=== PATIENT | female | born 1985 | race Caucasian/White ===

== ENCOUNTER 2017-09-06 13:42 | Outpatient (POV) | payer MEDICARE, OTHER, SELFPAY | END 2017-09-06 16:00 | disposition home or self-care (01) | PROVIDERS: Visit Provider Podiatrist | DX: L84 Corns and callosities (principal); M21.42 Flat foot [pes planus] (acquired), left foot; M21.41 Flat foot [pes planus] (acquired), right foot | CPT/HCPCS: 11055; 99202 ==

== ENCOUNTER → 2017-09-21 | Outpatient (POV) | payer MEDICARE, OTHER, SELFPAY | PROVIDERS: Visit Provider Podiatrist ==

== ENCOUNTER → 2017-10-26 09:59 | Outpatient (POV) | payer MEDICARE, SELFPAY | PROVIDERS: Visit Provider Podiatrist | DX: Z00.00 Encounter for general adult medical examination without abnormal findings (principal) ==

== ENCOUNTER → 2017-11-09 09:52 | Outpatient (POV) | payer MEDICARE, OTHER, SELFPAY | PROVIDERS: Visit Provider Podiatrist | DX: Z00.00 Encounter for general adult medical examination without abnormal findings (principal) ==

== ENCOUNTER → 2017-11-23 11:41 | Outpatient (POV) | payer MEDICARE, SELFPAY | PROVIDERS: Visit Provider Podiatrist | DX: Z00.00 Encounter for general adult medical examination without abnormal findings (principal) ==

== ENCOUNTER → 2018-10-23 09:34 | Outpatient (CLI) | payer MEDICARE, OTHER, SELFPAY ==
--- NOTE | 2018-10-23 09:43 | XR_ITS ---
XR chest 2V HISTORY: Shortness of breath, dropping O2 saturation when walking ITS.REASON: SOB ORDERING PHYSICIAN: Marc Thakur MD PATIENT AGE: 33 years COMPARISON: 04/25/2016 FINDINGS: There has been a prior median sternotomy with mitral valve replacement. There is cardiomegaly with pulmonary venous congestion consistent with CHF. There are chronic changes in the right lower lobe. There is a biventricular pacemaker present with a right atrial lead as well. On the lateral view there is a rounded opacity in the posterior costophrenic sulcus measuring approximately 5 cm. Probably on the right. No acute bony findings. IMPRESSION: Prior mitral valve replacement with pacemaker is present with mild CHF. 5 cm rounded opacity in the lung base posteriorly. CT may be of further value. Suture line is noted in the right lung base as before
== END ==
PROVIDERS: PCP Family Medicine; Visit Provider Family Medicine
DX: R06.02 Shortness of breath (principal)
CPT/HCPCS: 71046

== ENCOUNTER → 2018-12-17 10:59 | Outpatient (POV) | payer MEDICARE, OTHER, SELFPAY | PROVIDERS: Visit Provider Internal Medicine | DX: Z00.00 Encounter for general adult medical examination without abnormal findings (principal) ==

== ENCOUNTER → 2018-12-27 11:17 | Outpatient (CLI) | payer MEDICARE, OTHER, SELFPAY ==
[2018-12-27 12:18] VITALS: PULSE 71
[2018-12-27 12:40] VITALS: BP 104/79; PULSE 71; RESP 12; O2SAT 97
[2018-12-27 12:50] VITALS: BP 119/79; PULSE 89; RESP 16
--- NOTE | 2018-12-27 13:02 | CT_ITS ---
CT chest wo con HISTORY: Shortness of breath, drop in O2 saturation, abnormal chest x-ray ITS.REASON: ABN CXR,HYPOXEMIA ORDERING PHYSICIAN: Jorge Conway MD PATIENT AGE: 33 years COMPARISON: hypoxemia Technique: Axial images obtained following the administration of 75 mL of Optiray 350 . Sagittal, and coronal reformatted images are also generated and reviewed. All CT scans at the facility use one or more dose reduction, viz: automated exposure control, ma/kV adjustment per patient size (including targeted exams where dose is matched to indication, i.e. head), or iterative reconstruction technique. FINDINGS: Cardiac pacemaker device is present. There is an enlarged left atrial appendage. Mitral valve placement is noted. There is cardiomegaly. There is pulmonary venous congestion and interstitial edema as well as mild diffuse groundglass density consistent with pulmonary edema from CHF. There is a posterior diaphragmatic hernia on the left with herniation of peritoneal fat into the hernia into the left pleural space posteriorly. This area of fat herniation measures 6 x 7.7 x 6 cm and accounts for the radiographic abnormality noted on the chest x-ray no suspicious pulmonary nodules are evident. IMPRESSION: 1. Congestive heart failure with pulmonary edema. 2. Enlarged left atrial appendage. 3. Bochdalek hernia on the left accounting for the radiographic abnormality noted on the chest x-ray
== END ==
PROVIDERS: PCP Family Medicine; Visit Provider Internal Medicine
DX: R09.02 Hypoxemia (principal); R93.89 Abnormal findings on diagnostic imaging of other specified body structures
CPT/HCPCS: 71250; 94060; 94618; 94640

== ENCOUNTER → 2019-01-07 18:38 | Outpatient (CLI) | payer MEDICARE, OTHER, SELFPAY | PROVIDERS: Visit Provider Podiatrist | DX: L30.9 Dermatitis, unspecified (principal) | CPT/HCPCS: 87102; 87206 ==

== ENCOUNTER → 2019-01-09 20:18 | Outpatient (CLI) | payer MEDICARE, OTHER, SELFPAY | PROVIDERS: PCP Family Medicine; Visit Provider Nurse Practitioner Family | DX: G47.30 Sleep apnea, unspecified (principal) | CPT/HCPCS: 95811 ==

== ENCOUNTER → 2019-02-25 13:11 | Outpatient (POV) | payer MEDICARE, OTHER, SELFPAY | PROVIDERS: Visit Provider Internal Medicine | DX: Z00.00 Encounter for general adult medical examination without abnormal findings (principal) ==

== ENCOUNTER → 2020-07-20 11:27 | Outpatient (POV) | payer MEDICARE, OTHER, SELFPAY | PROVIDERS: Visit Provider Dermatology | DX: Z00.00 Encounter for general adult medical examination without abnormal findings (principal) ==

== ENCOUNTER → 2021-04-29 10:24 | Outpatient (CLI) | payer MEDICARE, OTHER, SELFPAY | PROVIDERS: Visit Provider Internal Medicine Cardiovascular Disease | DX: Z01.818 Encounter for other preprocedural examination (principal); Z11.52 Encounter for screening for COVID-19 | CPT/HCPCS: U0003 ==

== ENCOUNTER → 2021-06-09 11:30 | Outpatient (CLI) | payer MEDICARE, OTHER, SELFPAY ==
[2021-06-09 13:59] LABS: Potassium 5.1 mmoL/L (3.5-5.1)
== END ==
PROVIDERS: Visit Provider Family Medicine
DX: E87.6 Hypokalemia (principal)
CPT/HCPCS: 36415; 84132

== ENCOUNTER → 2021-06-24 14:07 | Outpatient (CLI) | payer MEDICARE, OTHER, SELFPAY ==
[2021-06-24 15:45] LABS: Potassium 4.7 mmoL/L (3.5-5.1)
== END ==
PROVIDERS: Visit Provider Family Medicine
DX: E87.5 Hyperkalemia (principal)
CPT/HCPCS: 36415; 84132

== ENCOUNTER → 2021-07-22 13:30 | Outpatient (CLI) | payer MEDICARE, OTHER, SELFPAY ==
[2021-07-22 14:33] LABS: Potassium 4.6 mmoL/L (3.5-5.1)
== END ==
PROVIDERS: Visit Provider Family Medicine
DX: E87.5 Hyperkalemia (principal)
CPT/HCPCS: 36415; 84132

== ENCOUNTER → 2021-08-23 14:46 | Outpatient (CLI) | payer MEDICARE, OTHER, SELFPAY ==
[2021-08-23 15:20] LABS: Potassium 4.7 mmoL/L (3.5-5.1)
== END ==
PROVIDERS: Visit Provider Family Medicine
DX: E87.5 Hyperkalemia (principal)
CPT/HCPCS: 36415; 84132

== ENCOUNTER → 2021-09-20 14:32 | Outpatient (CLI) | payer MEDICARE, OTHER, SELFPAY ==
[2021-09-20 16:07] LABS: Potassium 5.9 mmoL/L (3.5-5.1)
== END ==
PROVIDERS: Visit Provider Family Medicine
DX: E87.5 Hyperkalemia (principal)
CPT/HCPCS: 36415; 84132

== ENCOUNTER → 2021-10-05 15:12 | Outpatient (CLI) | payer MEDICARE, OTHER, SELFPAY | PROVIDERS: Visit Provider Family Medicine | DX: E87.5 Hyperkalemia (principal) | CPT/HCPCS: 36415; 84132 ==

== ENCOUNTER → 2021-11-08 14:40 | Outpatient (CLI) | payer MEDICARE, OTHER, SELFPAY ==
[2021-11-08 16:06] LABS: Potassium 4.2 mmoL/L (3.5-5.1)
== END ==
PROVIDERS: PCP Family Medicine; Visit Provider Family Medicine
DX: E87.5 Hyperkalemia (principal)
CPT/HCPCS: 36415; 84132

== ENCOUNTER → 2021-12-06 15:15 | Outpatient (CLI) | payer MEDICARE, OTHER, SELFPAY ==
[2021-12-06 16:12] LABS: Potassium 4.7 mmoL/L (3.5-5.1)
== END ==
PROVIDERS: Visit Provider Family Medicine
DX: E87.5 Hyperkalemia (principal)
CPT/HCPCS: 36415; 84132

== ENCOUNTER 2021-12-16 10:47 | Emergency (ER) | payer MEDICARE, OTHER, SELFPAY ==
[2021-12-16 12:40] VITALS: BP 145/72; PULSE 70; RESP 20; TEMP 37.1; O2SAT 95; BMI 46.1
--- NOTE | 2021-12-16 13:42 | HMH.EDUTC ---
[facility] [place] Clinical Impression: Left foot pain Disposition: Home, Self-Care Condition on Discharge: Good Instructions: DI for Foot Pain Additional Instructions: Keep foot elevated. BAKARI wrap for compression. Epsom salt soaks, warm compresses. Tylenol as needed. Return to clinic if pain worsens, redness, pallor, etc Referrals: Marc Thakur MD [Primary Care Provider] - Time of Disposition: 15:07 Medical Decision Making - Allen Inquiry Pt receiving controlled substance: No Vital Signs: 12/16/21 12:40 Temperature 98.7 F Temperature Source Oral Pulse Rate [Right Brachial] 70 Respiratory Rate 20 Blood Pressure [Right Arm] 145/72 H Blood Pressure Mean [Right Arm] 96 Blood Pressure Source [Right Arm] Automatic Cuff Blood Pressure Position [Right Arm] Sitting 02 Sat by Pulse Oximetry 95 Oxygen Delivery Method Room Air - US Data US Images: Lower Extremity ED US Reviewed: Yes: I have reviewed the patient's US results Preliminary Findings: Normal/NAD Findings Narrative: No evidence of DVT [facility] [place] HPI - General Stated complaint: lt foot swollen, painful Time Seen by Provider: 12/16/21 13:43 Mode of Arrival: Ambulatory Source of Information: Patient, Parent(s) Limitations: No Limitations Description of Symptoms (Recalled from Triage Doc. by RN): PATIENT C/O SWELLING AND PAIN TO TOP OF LEFT FOOT SINCE THIS MORNING. MOTHER IS CONCERNED BECAUSE SHE HAD A BLOOD CLOT BEHIND HER PACEMAKER LAST MAY AFTER HER PACEMAKER WAS CHANGED HEENT Symptoms (Recalled from RN notes): No Resp Symptoms (Recalled from RN notes): No Skin Symptoms (Recalled from RN notes): No MS Symptoms (Recalled from RN notes): Yes Functional Status (Recalled from RN notes): WNL - History of Present Illness Provider Complaint: Pain and swelling in left foot since this am. Mother states that she went to bed last night with no issues. Woke up this am limping. Complains of pain across the top of her left foot. Did not trip, kick anything, drop anything on her foot. No bruising. Wearing the same shoes she always wears. She is concerned because she does have a history of a blood clot after she had pacemaker placed. Has mechanical heart valve and A-fib. Takes Coumadin. Last INR was 2.9 just last week. Onset (ago): hour(s) (6) Location: left, lower extremity Radiation: non-radiation Severity scale (1-10): 5 Quality: aching Consistency: constant Exacerbating factors: other (weight bearing, direct pressure) Associated symptoms: denies other symptoms Treatments prior to arrival: none - Related Data Home Medications Medication Instructions Recorded Confirmed albuterol sulfate 90 mcg/actuation INHALATION 17 Days 11/01/17 12/30/20 aerosol inhaler cholecalciferol (vitamin D3) 50 2,000 unit PO ONCE 11/01/17 12/30/20 mcg (2,000 unit) capsule desogestrel 0.15 mg-ethinyl 1 tab PO 84 Days tab 11/01/17 12/30/20 estradiol 0.03 mg tablet furosemide 40 mg tablet 40 mg PO 90 Days tab 11/01/17 12/30/20 levothyroxine 125 mcg tablet 125 mcg PO 90 Days tab 11/01/17 12/30/20 sodium chloride 0.65 % nasal spray 1 spray INTRANASAL BID PRN 01/07/19 12/30/20 aerosol warfarin 1 mg tablet 1 mg PO DAILY 90 Days #90 tab 01/07/19 12/30/20 warfarin 6 mg tablet 6 mg PO DAILY 01/07/19 12/30/20 montelukast 10 mg tablet 10 mg PO DAILY tab 03/28/19 12/30/20 potassium chloride 10 mEq PO tab 03/28/19 12/30/20 tablet,extended release aspirin 81 mg tablet,delayed 81 mg PO DAILY 11/23/20 12/30/20 release azelastine 137 mcg (0.1 %) nasal INTRANASAL 12/30/20 12/30/20 spray aerosol Allergies Allergy/AdvReac Type Severity Reaction Status Date / Time Amoxicillin Allergy Mild Uncoded 11/23/20 10:31 - Worker's Comp Is this a Worker's Comp case?: No [facility] History - Hepatitis A Screen Drug use history?: No High risk sexual behaviors?: No History of sexually transmitted infection?: No Currently employed?: No Childcare worker?: No Do y
--- NOTE | 2021-12-16 13:57 | CA_ITS ---
FINAL REPORT TECHNIQUE: Color Doppler, duplex Doppler and compression sonography of the left lower extremity deep venous systems was performed. CLINICAL HISTORY: pain and swelling, a-fib, on coumadin. Patient's mother states she woke up with pain on the top of her foot this morning. She denies any trauma. FINDINGS: There is no evidence of deep venous thrombosis from the level of the groin to the calf. The veins are patent and compressible. IMPRESSION: No evidence of deep venous thrombosis left lower extremity. Reviewed, Interpreted and Dictated by Israel Chino III, MD Transcribed by Opal Rico Authenticated by Israel Chino III, MD on 12/16/2021 04:20:04 PM [facility]
[2021-12-16 15:02] VITALS: BP 145/72; PULSE 70; RESP 20; TEMP 37.1; O2SAT 95
== END 2021-12-16 15:14 | disposition home or self-care (01) ==
PROVIDERS: Emergency Provider Physician Assistant; PCP Family Medicine
DX: M79.672 Pain in left foot (principal); N28.9 Disorder of kidney and ureter, unspecified; I25.10 Atherosclerotic heart disease of native coronary artery without angina pectoris; I51.9 Heart disease, unspecified; G47.33 Obstructive sleep apnea (adult) (pediatric); Q90.9 Down syndrome, unspecified; E03.9 Hypothyroidism, unspecified; J32.9 Chronic sinusitis, unspecified; Z79.01 Long term (current) use of anticoagulants; Z79.51 Long term (current) use of inhaled steroids; Z79.82 Long term (current) use of aspirin; Z79.899 Other long term (current) drug therapy; Z79.890 Hormone replacement therapy; Z88.1 Allergy status to other antibiotic agents; Z88.3 Allergy status to other anti-infective agents; Z95.2 Presence of prosthetic heart valve; Z95.0 Presence of cardiac pacemaker; Z82.49 Family history of ischemic heart disease and other diseases of the circulatory system; Z83.3 Family history of diabetes mellitus; Z83.438 Family history of other disorder of lipoprotein metabolism and other lipidemia; Z80.9 Family history of malignant neoplasm, unspecified
CPT/HCPCS: 93971; 99213; G0463

== ENCOUNTER → 2022-01-06 14:46 | Outpatient (CLI) | payer MEDICARE, OTHER, SELFPAY ==
[2022-01-06 16:35] LABS: Potassium 3.9 mmoL/L (3.5-5.1)
== END ==
PROVIDERS: PCP Family Medicine; Visit Provider Family Medicine
DX: E87.5 Hyperkalemia (principal)
CPT/HCPCS: 36415; 84132

== ENCOUNTER → 2022-02-06 11:01 | Outpatient (CLI) | payer MEDICARE, OTHER, SELFPAY ==
[2022-02-06 11:46] LABS: Potassium 4.2 mmoL/L (3.5-5.1)
== END ==
PROVIDERS: Visit Provider Family Medicine
DX: E87.5 Hyperkalemia (principal)
CPT/HCPCS: 36415; 84132

== ENCOUNTER → 2022-03-08 13:38 | Outpatient (CLI) | payer MEDICARE, OTHER, SELFPAY ==
[2022-03-08 14:23] LABS: Potassium 3.9 mmoL/L (3.5-5.1)
== END ==
PROVIDERS: PCP Family Medicine; Visit Provider Family Medicine
DX: E87.5 Hyperkalemia (principal)
CPT/HCPCS: 36415; 84132

== ENCOUNTER → 2022-04-07 11:00 | Outpatient (CLI) | payer MEDICARE, OTHER, SELFPAY ==
[2022-04-07 11:48] LABS: Potassium 4.4 mmoL/L (3.5-5.1)
== END ==
PROVIDERS: PCP Family Medicine; Visit Provider Family Medicine
DX: E87.5 Hyperkalemia (principal)
CPT/HCPCS: 36415; 84132

== ENCOUNTER → 2022-05-11 11:23 | Outpatient (CLI) | payer MEDICARE, OTHER, SELFPAY ==
[2022-05-11 12:00] LABS: Potassium 4.4 mmoL/L (3.5-5.1)
== END ==
PROVIDERS: PCP Family Medicine; Visit Provider Family Medicine
DX: E87.5 Hyperkalemia (principal)
CPT/HCPCS: 36415; 84132

== ENCOUNTER → 2022-06-08 11:15 | Outpatient (CLI) | payer MEDICARE, OTHER, SELFPAY ==
[2022-06-08 12:29] LABS: Potassium 4.3 mmoL/L (3.5-5.1)
== END ==
PROVIDERS: PCP Family Medicine; Visit Provider Family Medicine
DX: E87.5 Hyperkalemia (principal)
CPT/HCPCS: 36415; 84132

== ENCOUNTER → 2022-07-07 13:58 | Outpatient (CLI) | payer MEDICARE, OTHER, SELFPAY ==
[2022-07-07 14:56] LABS: Potassium 5.9 mmoL/L (3.5-5.1)
== END ==
PROVIDERS: PCP Family Medicine; Visit Provider Family Medicine
DX: E87.6 Hypokalemia (principal)
CPT/HCPCS: 36415; 84132

== ENCOUNTER → 2022-08-25 14:56 | Outpatient (CLI) | payer MEDICARE, OTHER, SELFPAY | PROVIDERS: PCP Family Medicine; Visit Provider Family Medicine | DX: E87.6 Hypokalemia (principal) | CPT/HCPCS: 36415; 84132 ==

== ENCOUNTER → 2022-09-19 12:11 | Outpatient (CLI) | payer MEDICARE, OTHER, SELFPAY ==
[2022-09-19 12:58] LABS: Potassium 5.1 mmoL/L (3.5-5.1)
== END ==
PROVIDERS: PCP Family Medicine; Visit Provider Family Medicine
DX: E87.6 Hypokalemia (principal)
CPT/HCPCS: 36415; 84132

== ENCOUNTER → 2022-11-21 13:28 | Outpatient (CLI) | payer MEDICARE, OTHER, SELFPAY ==
[2022-11-21 14:30] LABS: Potassium 4.4 mmoL/L (3.5-5.1)
== END ==
PROVIDERS: PCP Family Medicine; Visit Provider Family Medicine
DX: E87.6 Hypokalemia (principal)
CPT/HCPCS: 36415; 84132

== ENCOUNTER → 2022-12-19 10:03 | Outpatient (CLI) | payer MEDICARE, OTHER, SELFPAY ==
[2022-12-19 11:37] LABS: Potassium 4.6 mmoL/L (3.5-5.1)
== END ==
PROVIDERS: PCP Family Medicine; Visit Provider Family Medicine
DX: E87.6 Hypokalemia (principal)
CPT/HCPCS: 36415; 84132

== ENCOUNTER → 2023-01-31 09:46 | Outpatient (CLI) | payer MEDICARE, OTHER, SELFPAY ==
[2023-01-31 10:36] LABS: Potassium 4.2 mmoL/L (3.5-5.1)
== END ==
PROVIDERS: PCP Family Medicine; Visit Provider Family Medicine
DX: E87.6 Hypokalemia (principal)
CPT/HCPCS: 36415; 84132

== ENCOUNTER → 2023-03-09 10:51 | Outpatient (CLI) | payer MEDICARE, OTHER, SELFPAY ==
[2023-03-09 12:15] LABS: Potassium 4.6 mmoL/L (3.5-5.1)
== END ==
PROVIDERS: PCP Family Medicine; Visit Provider Family Medicine
DX: E87.6 Hypokalemia (principal)
CPT/HCPCS: 36415; 84132

== ENCOUNTER → 2023-04-05 08:20 | Outpatient (CLI) | payer MEDICARE, OTHER, SELFPAY ==
[2023-04-05 09:27] LABS: Potassium 4.8 mmoL/L (3.5-5.1)
== END ==
PROVIDERS: PCP Family Medicine; Visit Provider Family Medicine
DX: E87.6 Hypokalemia (principal)
CPT/HCPCS: 36415; 84132

== ENCOUNTER → 2023-05-08 10:00 | Outpatient (CLI) | payer MEDICARE, OTHER, SELFPAY ==
[2023-05-08 10:37] LABS: Potassium 4.4 mmoL/L (3.5-5.1)
== END ==
PROVIDERS: PCP Family Medicine; Visit Provider Family Medicine
DX: E87.6 Hypokalemia (principal)
CPT/HCPCS: 36415; 84132

== ENCOUNTER → 2023-06-11 10:42 | Outpatient (CLI) | payer MEDICARE, OTHER, SELFPAY ==
[2023-06-11 11:28] LABS: Potassium 4.4 mmoL/L (3.5-5.1)
== END ==
PROVIDERS: PCP Family Medicine; Visit Provider Family Medicine
DX: E87.6 Hypokalemia (principal)
CPT/HCPCS: 36415; 84132

== ENCOUNTER 2023-06-24 08:56 | Emergency (ER) | payer MEDICARE, OTHER, SELFPAY ==
[2023-06-24 09:10] VITALS: BP 118/40; PULSE 70; RESP 18; TEMP 36.7; O2SAT 95; BMI 49.0
--- NOTE | 2023-06-24 09:50 | EXP.UTC ---
Discharge Plan Disposition Patient Disposition: Home, Self-Care Condition: Good Prescriptions Prescriptions: No Action sodium chloride [[place] Saline] 0.65 % aerosol,spray 1 spray INTRANASAL BID PRN warfarin 6 mg tablet 6 mg PO DAILY Rx Instructions: 5 days montelukast 10 mg tablet 10 mg PO DAILY potassium chloride 10 mEq tablet extended release 10 meq PO DAILY azelastine 137 mcg (0.1 %) aerosol,spray INTRANASAL desogestrel-ethinyl estradiol 0.15-0.03 mg tablet 1 tab PO DAILY 84 Days Patient Comments: albuterol sulfate 90 mcg/actuation HFA aerosol inhaler 1 puff INHALATION NEEDED PRN (Reason: .) 17 Days Patient Comments: furosemide 40 mg tablet 40 mg PO DAILY 90 Days Patient Comments: levothyroxine 125 mcg tablet 125 mcg PO DAILY 90 Days Patient Comments: cholecalciferol (vitamin D3) 2,000 unit capsule 2,000 unit PO ONCE warfarin 1 mg tablet 0.5 mg PO DAILY 90 Days Qty: 90 Patient Comments: 8mg Sunday, Sunday 7mg Sunday, Sunday, , Sunday, Sunday Rx Instructions: 6.5 mg 2 days weekly aspirin [Adult Low Dose Aspirin] 81 mg tablet,delayed release (DR/EC) 81 mg PO DAILY Referrals Follow up/Referrals: Marc Thakur MD [Primary Care Provider] - See instructions Clinical Impressions Clinical Impression: Pain of left great toe Instructions Patient Instructions: How To Perform RICE (Rest, Ice, Compress, Elevate) Discharge ED Provider: Dona Trujillo [facility] General Stated complaint: sore on bottom of left big toe Mode of Arrival: Ambulatory Source of Information: Patient Limitations: No Limitations Time Seen by Provider: 06/24/23 09:36 Description of Symptoms (Recalled from Triage Doc. by RN): raised sore on the bottom of her right big toe HEENT Symptoms (Recalled from RN notes): No Resp Symptoms (Recalled from RN notes): No Skin Symptoms (Recalled from RN notes): Yes MS Symptoms (Recalled from RN notes): No Functional Status (Recalled from RN notes): n/a History of Present Illness Provider Complaint: Mom relates that pt tripped yesterday and fell. She states that she has been complaining of left great toe pain since that time. Related Data Home Medications Medication Instructions Recorded Confirmed albuterol sulfate 90 mcg/actuation 1 puff inhalation NEEDED PRN . 11/01/17 06/24/23 aerosol inhaler 17 days cholecalciferol (vitamin D3) 50 2,000 unit PO ONCE 11/01/17 12/30/20 mcg (2,000 unit) capsule desogestrel 0.15 mg-ethinyl 1 tab PO DAILY . 84 days 11/01/17 06/24/23 estradiol 0.03 mg tablet furosemide 40 mg tablet 40 mg PO DAILY . 90 days 11/01/17 06/24/23 levothyroxine 125 mcg tablet 125 mcg PO DAILY thyroid 90 days 11/01/17 06/24/23 sodium chloride 0.65 % nasal spray 1 spray intranasal BID PRN 01/07/19 12/30/20 aerosol ([place] Saline) warfarin 1 mg tablet 0.5 mg PO DAILY . 90 days #90 tabs 01/07/19 06/24/23 warfarin 6 mg tablet 6 mg PO DAILY . 01/07/19 06/24/23 montelukast 10 mg tablet 10 mg PO DAILY . 03/28/19 06/24/23 potassium chloride 10 mEq 10 meq PO DAILY . 03/28/19 06/24/23 tablet,extended release aspirin 81 mg tablet,delayed 81 mg PO DAILY . 11/23/20 06/24/23 release (Adult Low Dose Aspirin) azelastine 137 mcg (0.1 %) nasal intranasal 12/30/20 12/30/20 spray aerosol Allergies Allergy/AdvReac Type Severity Reaction Status Date / Time doxycycline Allergy Mild Verified 06/24/23 09:26 Amoxicillin Allergy Mild Uncoded 06/24/23 09:26 Worker's Comp Is this a Worker's Comp case?: No [facility] Disclaimer: The information contained in this section may have been updated after the patient was seen, as this information can be updated by other users. Social History Smoking Status: Never smoker alcohol intake: never counseling provided: none substance use type: denies
[2023-06-24 09:54] VITALS: BP 118/40; PULSE 70; RESP 18; TEMP 36.7; O2SAT 95
== END 2023-06-24 09:54 | disposition home or self-care (01) ==
PROVIDERS: Emergency Provider Nurse Practitioner Family; PCP Family Medicine
DX: M79.675 Pain in left toe(s) (principal); W01.10XA Fall on same level from slipping, tripping and stumbling with subsequent striking against unspecified object, initial encounter
CPT/HCPCS: 99212; 99213; G0463

== ENCOUNTER → 2023-07-23 09:37 | Outpatient (CLI) | payer MEDICARE, OTHER, SELFPAY | PROVIDERS: PCP Family Medicine; Visit Provider Family Medicine | DX: E87.6 Hypokalemia (principal) | CPT/HCPCS: 36415; 84132 ==

== ENCOUNTER → 2023-08-27 14:49 | Outpatient (CLI) | payer MEDICARE, OTHER, SELFPAY ==
[2023-08-27 16:27] LABS: Potassium 4.4 mmoL/L (3.5-5.1)
== END ==
PROVIDERS: PCP Family Medicine; Visit Provider Family Medicine
DX: E87.6 Hypokalemia (principal)
CPT/HCPCS: 36415; 84132

== ENCOUNTER → 2023-09-20 15:00 | Outpatient (CLI) | payer MEDICARE, OTHER, SELFPAY ==
[2023-09-20 15:33] LABS: Potassium 4.6 mmoL/L (3.5-5.1)
== END ==
PROVIDERS: PCP Family Medicine; Visit Provider Family Medicine
DX: E87.6 Hypokalemia (principal)
CPT/HCPCS: 36415; 84132

== ENCOUNTER 2023-10-26 13:29 | Outpatient (CLI) | payer MEDICARE, OTHER, SELFPAY ==
[2023-10-26 14:22] LABS: Potassium 4.1 mmoL/L (3.5-5.1)
== END 2023-10-26 23:59 ==
LOC: LAB 13:31
PROVIDERS: PCP Family Medicine; Visit Provider Family Medicine
DX: E87.6 Hypokalemia (principal)
CPT/HCPCS: 36415; 84132

== ENCOUNTER 2023-12-03 10:05 | Outpatient (CLI) | payer MEDICARE, OTHER, SELFPAY ==
[2023-12-03 10:46] LABS: Potassium 4.6 mmoL/L (3.5-5.1)
== END 2023-12-03 23:59 ==
PROVIDERS: PCP Family Medicine; Visit Provider Family Medicine
DX: E87.6 Hypokalemia (principal)
CPT/HCPCS: 36415; 84132

== ENCOUNTER 2023-12-12 09:39 | Outpatient (CLI) | payer MEDICARE, OTHER, SELFPAY ==
[2023-12-12 10:16] LABS: Basophils # 0.1 K/mm3 (0-0.2); Basophils % 2.2 % (0.1-2.0); Eosinophils # 0.1 K/mm3 (0.0-0.4); Eosinophils % 2.1 % (0.1-12.0); Hematocrit 46.8 % (37.0-47.0); Hemoglobin 15.6 g/dL (12.2-16.2); Lymphocytes # 1.7 K/mm3 (0.7-4.5); Lymphocytes % 28.7 % (10-50); Mean Corpuscular HGB Conc 33.4 g/dL (31.8-35.4); Mean Corpuscular Hemoglobin 34.6 pg (27.0-31.2); Mean Corpuscular Volume 103.6 fl (81-99); Mean Platelet Volume 7.7 fl (7.4-10.4); Monocytes # 0.3 K/mm3 (0.1-1.0); Monocytes % 5.3 % (1.7-9.3); Neutrophils # 3.6 K/mm3 (1.8-7.8); Neutrophils % 61.7 % (37.0-80.0); Platelet Count 180 K/mm3 (142-424); Red Blood Count 4.52 M/mm3 (4.20-5.40); Red Cell Distribution Width 14.6 % (11.5-17.5); White Blood Count 5.8 K/mm3 (4.8-10.8)
[2023-12-12 11:22] LABS: Chloride 107 mmol/L (98-107); Potassium 4.2 mmoL/L (3.5-5.1); Sodium 137 mmol/L (136-145)
[2023-12-12 11:24] LABS: Blood Urea Nitrogen 13 mg/dl (7-17); Estimated Glomerular Filt Rate 79 ml/min (>60); GFR (African American) 96 ML/MIN (>60)
[2023-12-12 11:25] LABS: Alanine Aminotransferase 47 U/L (12-78); Albumin Level 3.6 g/dl (3.5-5.0); Albumin/Globulin Ratio 1.1 (1.1-1.8); Alkaline Phosphatase 80 U/L (38-126); Anion Gap 7.2 mEq/L (5-15); Aspartate Amino Transferase 57 U/L (14-36); Bilirubin,Total 0.8 mg/dl (0.2-1.3); Calcium 8.6 mg/dl (8.4-10.2); Carbon Dioxide 27 mmol/L (22.0-30.0); Cholesterol 192 mg/dl (140-200); Globulin 3.3 g/dL (1.3-3.2); Glucose 89 mg/dl (74-100); HDL Cholesterol 32 mg/dl (40-60); Iron 96 ug/dL (37-170); Total Protein,Serum 6.9 g/dl (6.3-8.2); Triglycerides 163 mg/dl (30-150); VLDL Cholesterol 33 mg/dL (0-40)
[2023-12-12 11:36] LABS: Total Iron Binding Capacity 387 ug/dL (265-497)
[2023-12-12 11:42] LABS: 25-OH Vitamin D, Total 68.3 ng/mL (30-100); Free T4 (Free Thyroxine) 1.38 ng/dl (0.78-2.19)
== END 2023-12-12 23:59 ==
LOC: LAB 09:40
PROVIDERS: PCP Family Medicine; Visit Provider Family Medicine
DX: E78.2 Mixed hyperlipidemia (principal); I10 Essential (primary) hypertension; D50.9 Iron deficiency anemia, unspecified; E55.9 Vitamin D deficiency, unspecified; E03.9 Hypothyroidism, unspecified
CPT/HCPCS: 36415; 80053; 80061; 82306; 83540; 83550; 84439; 84443; 85025

== ENCOUNTER 2024-01-08 13:12 | Outpatient (CLI) | payer MEDICARE, OTHER, SELFPAY ==
[2024-01-08 14:32] LABS: Potassium 4.4 mmoL/L (3.5-5.1)
== END 2024-01-08 23:59 ==
LOC: LAB 13:12
PROVIDERS: PCP Family Medicine; Visit Provider Family Medicine
DX: E87.6 Hypokalemia (principal)
CPT/HCPCS: 36415; 84132

== ENCOUNTER 2024-02-07 13:53 | Outpatient (CLI) | payer MEDICARE, OTHER, SELFPAY ==
[2024-02-07 15:17] LABS: Potassium 4.5 mmoL/L (3.5-5.1)
== END 2024-02-07 23:59 | disposition home or self-care (01) ==
LOC: LAB 13:55
PROVIDERS: PCP Family Medicine; Visit Provider Family Medicine
DX: E87.6 Hypokalemia (principal)
CPT/HCPCS: 36415; 84132

== ENCOUNTER 2024-03-10 14:46 | Outpatient (CLI) | payer MEDICARE, OTHER, SELFPAY | END 2024-03-10 23:59 | disposition home or self-care (01) | LOC: LAB 14:48 | PROVIDERS: PCP Family Medicine; Visit Provider Family Medicine | DX: E87.6 Hypokalemia (principal) | CPT/HCPCS: 36415; 84132 ==

== ENCOUNTER 2024-04-10 10:30 | Outpatient (CLI) | payer MEDICARE, OTHER, SELFPAY ==
[2024-04-10 11:08] LABS: Potassium 5.5 mmoL/L (3.5-5.1)
== END 2024-04-10 23:59 | disposition home or self-care (01) ==
LOC: LAB 10:31
PROVIDERS: PCP Family Medicine; Visit Provider Family Medicine
DX: E87.6 Hypokalemia (principal)
CPT/HCPCS: 36415; 84132

== ENCOUNTER 2024-05-07 13:44 | Outpatient (CLI) | payer MEDICARE, OTHER, SELFPAY ==
[2024-05-07 16:03] LABS: Potassium 4.4 mmoL/L (3.5-5.1)
== END 2024-05-07 23:59 | disposition home or self-care (01) ==
LOC: LAB 13:46
PROVIDERS: PCP Family Medicine; Visit Provider Family Medicine
DX: E87.6 Hypokalemia (principal)
CPT/HCPCS: 36415; 84132

== ENCOUNTER 2024-06-12 09:51 | Outpatient (CLI) | payer MEDICARE, OTHER, SELFPAY | END 2024-06-12 23:59 | disposition home or self-care (01) | LOC: LAB 09:53 | PROVIDERS: PCP Family Medicine; Visit Provider Family Medicine | DX: E87.6 Hypokalemia (principal) | CPT/HCPCS: 36415; 84132 ==

== ENCOUNTER 2024-07-16 13:16 | Outpatient (CLI) | payer MEDICARE, OTHER, SELFPAY ==
[2024-07-16 14:34] LABS: Potassium 4.8 mmoL/L (3.5-5.1)
== END 2024-07-16 23:59 | disposition home or self-care (01) ==
LOC: LAB 13:20
PROVIDERS: PCP Family Medicine; Visit Provider Nurse Practitioner
DX: E87.6 Hypokalemia (principal)
CPT/HCPCS: 84132

== ENCOUNTER 2024-08-18 13:00 | Outpatient (CLI) | payer MEDICARE, OTHER, SELFPAY ==
[2024-08-18 13:40] LABS: Potassium 4.1 mmoL/L (3.5-5.1)
== END 2024-08-18 23:59 | disposition home or self-care (01) ==
LOC: LAB 13:02
PROVIDERS: PCP Family Medicine; Visit Provider Family Medicine
DX: E87.6 Hypokalemia (principal)
CPT/HCPCS: 36415; 84132

== ENCOUNTER 2024-08-22 23:19 | Observation (INO) | payer MEDICARE, OTHER, SELFPAY ==
[2024-08-22 23:49] VITALS: BP 107/54; PULSE 70; RESP 18; TEMP 36.8; O2SAT 96; BMI 45.0
--- NOTE | 2024-08-22 23:49 | XR_ITS ---
PROCEDURE INFORMATION: Exam: XR Chest Exam date and time: 08/22/2024 11:48 PM Age: 39 years old Clinical indication: Cough and fever and shortness of breath; Additional info: SOA cough fever TECHNIQUE: Imaging protocol: Radiologic exam of the chest. Views: 2 views. COMPARISON: CHESTWO CT chest wo con 12/27/2018 1:08 PM FINDINGS: Tubes, catheters and devices: Two lead pacemaker in place. Lungs: Left basilar opacity best seen on lateral projection. Pleural spaces: Unremarkable. No pleural effusion. No pneumothorax. Heart/Mediastinum: Unremarkable. No cardiomegaly. Bones/joints: Unremarkable. IMPRESSION: Possible left basilar infiltration.
--- NOTE | 2024-08-22 23:51 | ED_ITS ---
Discharge Plan Disposition Patient Disposition: Admitted Prescriptions Prescriptions: No Action sodium chloride [[place] Saline] 0.65 % aerosol,spray 1 spray INTRANASAL BID PRN warfarin 6 mg tablet 6 mg PO DAILY Rx Instructions: 5 days montelukast 10 mg tablet 10 mg PO DAILY potassium chloride 10 mEq tablet extended release 10 meq PO DAILY azelastine 137 mcg (0.1 %) aerosol,spray INTRANASAL desogestrel-ethinyl estradiol 0.15-0.03 mg tablet 1 tab PO DAILY 84 Days Patient Comments: albuterol sulfate 90 mcg/actuation HFA aerosol inhaler 1 puff INHALATION NEEDED PRN (Reason: .) 17 Days Patient Comments: furosemide 40 mg tablet 40 mg PO DAILY 90 Days Patient Comments: levothyroxine 125 mcg tablet 125 mcg PO DAILY 90 Days Patient Comments: cholecalciferol (vitamin D3) 2,000 unit capsule 2,000 unit PO ONCE warfarin 1 mg tablet 0.5 mg PO DAILY 90 Days Qty: 90 Patient Comments: 8mg Sunday, Sunday 7mg Sunday, Sunday, , Sunday, Sunday Rx Instructions: 6.5 mg 2 days weekly aspirin [Adult Low Dose Aspirin] 81 mg tablet,delayed release (DR/EC) 81 mg PO DAILY Referrals Follow up/Referrals: Marc Thakur MD [Primary Care Provider] - See instructions Clinical Impressions Clinical Impression: Pneumonia, Elevated brain natriuretic peptide (BNP) level Print Language Print Language: Azeri Discharge ED Provider: Karla Umana General Chief Complaint: Upper Respiratory Infection Stated Complaint: fever, cough, congestion Time Seen by Provider: 08/22/24 23:30 History of Present Illness HPI narrative: 39-year-old female with history of Down syndrome, mechanical heart valve on warfarin, congestive heart failure, history of 2 open heart surgeries presents to the ER with cough, congestion, fever. Mom reports that patient has had cough and congestion for the last 4 to 5 days. She did receive her RSV vaccine 5 days ago. Mom became concerned tonight when she checked the patient's temperature and it was 101. She administered antipyretic and patient arrived in the ER afebrile. Patient did arrive hypoxic, mom reports that patient does not wear oxygen at home during the day but when they are out and about, she wears 2 L with a concentrator. She states that when she is ambulatory she often drops into the mid 80s but is typically in the 90s at rest. Mom also reports patient wears CPAP with 2 L O2 at night patient denies abdominal pain, nausea, vomiting, diarrhea, no headache, dizziness, or pain elsewhere. No dysuria or hematuria. Patient reportedly takes an albuterol inhaler nightly before bed. Related Data Home Medications ?Medication ?Instructions ?Recorded ?Confirmed albuterol sulfate 90 mcg/actuation 1 puff inhalation NEEDED PRN . 11/01/17 06/24/23 aerosol inhaler 17 days cholecalciferol (vitamin D3) 50 2,000 unit PO ONCE 11/01/17 12/30/20 mcg (2,000 unit) capsule desogestrel 0.15 mg-ethinyl 1 tab PO DAILY . 84 days 11/01/17 06/24/23 estradiol 0.03 mg tablet furosemide 40 mg tablet 40 mg PO DAILY . 90 days 11/01/17 06/24/23 levothyroxine 125 mcg tablet 125 mcg PO DAILY thyroid 90 days 11/01/17 06/24/23 sodium chloride 0.65 % nasal spray 1 spray intranasal BID PRN 01/07/19 12/30/20 aerosol ([place] Saline) warfarin 1 mg tablet 0.5 mg PO DAILY . 90 days #90 tabs 01/07/19 06/24/23 warfarin 6 mg tablet 6 mg PO DAILY . 01/07/19 06/24/23 montelukast 10 mg tablet 10 mg PO DAILY . 03/28/19 06/24/23 potassium chloride 10 mEq 10 meq PO DAILY . 03/28/19 06/24/23 tablet,extended release aspirin 81 mg tablet,delayed 81 mg PO DAILY . 11/23/20 06/24/23 release (Adult Low Dose Aspirin) azelastine 137 mcg (0.1 %) nasal intranasal 12/30/20 12/30/20 spray Allergies Allergy/AdvReac Type Severity Reaction Status Date / Time doxycycline Allergy Mild Unknown Verified 09/10/23 13:06 allergy reaction amoxicillin Allergy Unknown Verified 09/10/23 13:06 allergy reaction [facility] Disclaimer: The information contained in this section may have been updated after the patient was seen, as this information can be updated by other users. Social History Smoking Status: Never smoker alcohol intake: never counseling provided: none substance use type: denies use current occupational status: disabled household members: family housing: house Other Medical History Have you received the Flu Vaccine for this season: Yes Have you received the Pneumonia Vaccine: Yes ROS Obtained: Yes Systems reviewed as appropriate & no additional complaints except as documented ROS per HPI Physical Exam General General appearance: alert, in no apparent distress and obese Comment: Syndromic appearance Head Head exam: atraumatic and normocephalic Eye Eye exam: Present PERRL and EOMI ENT ENT exam: Present mucous membranes moist Neck Neck exam: Present normal inspection and full ROM; Absent lymphadenopathy Chest Chest inspection: Present symmetric chest wall rise; Absent tenderness Respiratory Respiratory exam: Present wheezes (Diffuse expiratory, slightly diminished air movement) and other (Saturating 95% on 2 L nasal cannula); Absent respiratory distress or stridor Cardiovascular Cardiovascular exam: Present regular rate and normal rhythm Abdominal Exam Abdominal exam: Present soft; Absent distention, tenderness, guarding or rebound Extremities Exam Extremities exam: Present full ROM; Absent edema Neurological Exam Neurological exam: Present alert and oriented X3; Absent motor sensory deficit Psychiatric Psychiatric exam: Present normal affect and normal mood Skin Skin exam: Present warm and dry HEART Score HEART Score HEART Score assessment performed?: Yes History (anamnesis): Slightly suspicious ECG: Non-specific disturbance Age: <45 years Risk factors: 3 or more risk factors Troponin: </= normal limit HEART Score: 3 Critical Care Critical Care Time Critical Care Time: No Medical Decision Making Medical Records Medical records reviewed: Yes I reviewed the patient's medical records. MR Comment: Most recent evaluation in our system was for great toe pain in June 2023. I reviewed pulmonary function test from December 2018 which demonstrated patient was not able to fully cooperate with the PFT, she was prescribed a bronchodilator at that time. However they did find restriction without obstruction [place] Inquiry Pt receiving controlled substance: No Vital Signs Vital Signs: 08/22/24 23:49 08/23/24 00:09 08/23/24 00:09 Temperature 98.2 F Temperature Source Oral Pulse Rate 81 Pulse Rate [Right Radial] 70 Respiratory Rate 18 Blood Pressure [Right Arm] 107/54 L Blood Pressure Mean [Right Arm] 71 Blood Pressure Source [Right Arm] Automatic Cuff 02 Sat by Pulse Oximetry 96 97 Oxygen Delivery Method Nasal Cannula Nasal Cannula Oxygen Flow Rate (LPM) 2 2 08/23/24 00:09 08/23/24 00:15 Temperature Temperature Source Pulse Rate 77 71 Pulse Rate [Right Radial] Respiratory Rate Blood Pressure [Right Arm] Blood Pressure Mean [Right Arm] Blood Pressure Source [Right Arm] 02 Sat by Pulse Oximetry 100 Oxygen Delivery Method Oxygen Flow Rate (LPM) Lab Data Labs: Lab Results 08/22/24 00:09: Chlamy pneumoniae PCR Not detected, Adenovirus (PCR) Not detected, B. pertussis DNA (PCR) Not detected, Coronavirus OC43 (PCR) Not detected, Coronavirus HKU1 (PCR) Not detected, Coronavirus 229E (PCR) Not detected, SARS-CoV-2 (PCR) Not detected, Coronavirus NL63 (PCR) Not detected, Human Metapneumovir PCR Not detected, Influenza A (H1) PCR Not detected, Influ A (H1N1/09) PCR Not detected, Influenza A (H3) PCR Not detected, Influenza Type A (PCR) Not detected, Influenza Type B (PCR) Not detected, M. pneumoniae (PCR) Not detected, Parainfluenza 1 (PCR) Not detected, Parainfluenza 2 (PCR) Not detected, Parainfluenza 3 (PCR) Not detected, Parainfluenza 4 (PCR) Not detected, RSV (PCR) Detected A, Entero/Rhino (PCR) Not detected 08/22/24 23:49: VBG pH 7.31, VBG pCO2 54.0 H, VBG pO2 57.5 H, VBG HCO3 26.7, VBG Total CO2 28.4 H, VBG O2 Saturation 87.4 H, VBG Base Excess 0.5, VBG Lactic Acid 1.9 08/23/24 01:08: WBC 6.8, RBC 4.91, Hgb 15.8, Hct 47.4 H, MCV 96.5, MCH 32.2 H, MCHC 33.4, RDW 15.5, Plt Count 164, MPV 7.3 L, Neut % (Auto) 49.6, Lymph % (Auto) 41.1, [place] % (Auto) 4.5, Eos % (Auto) 2.6, Baso % (Auto) 2.2 H, Neut # (Auto) 3.4, Lymph # (Auto) 2.8, [place] # (Auto) 0.3, Eos # (Auto) 0.2, Baso # (Auto) 0.2, PT 20.1 H, INR 1.91 H, Sodium 139, Potassium 3.4 L, Chloride 103, C arbon Dioxide 31 H, Anion Gap 8.4, BUN 12, Creatinine 0.90, Estimated Creat Clear 56, Estimated GFR 69, Est GFR ( Amer) 83, Glucose 134 H, Calcium 9.1, Total Bilirubin 0.7, AST 45 H, ALT 40, Alkaline Phosphatase 130 H, Troponin I 0.03, NT-Pro-B Natriuret Pep 338 H, Total Protein 8.1, Albumin 4.1, Globulin 4.0 H, Albumin/Globulin Ratio 1.0 L 08/23/24 01:08 08/23/24 01:08 Response Orders (Tests/Meds): ED MEDICATIONS Generic Name Dose Route Start Last Admin Trade Name Freq PRN Reason Stop Dose Admin Ceftriaxone Sodium 1 gm/ 50 mls @ 100 mls/hr 08/23/24 00:30 08/23/24 01:13 Sodium Chloride IV 09/02/24 00:29 100 mls/hr Q24H ANDREIA Administration Discontinued Medications Generic Name Dose Route Start Last Admin Trade Name Freq PRN Reason Stop Dose Admin Albuterol/Ipratropium 9 ml 08/22/24 23:50 08/23/24 00:09 Ipratropium/Albuterol 3 Ml Neb IH 08/22/24 23:51 9 ml ONCE ONE Administration Methylprednisolone Sodium Succinate 125 mg 08/22/24 23:50 08/23/24 01:03 Methylprednisolone Sod Succ 125mg Vial IV 08/22/24 23:51 125 mg ONCE ONE Administration ORDERS Category Date Time Status CXR 2 view (NOT portable) [XR chest 2V] Stat Exams 08/22/24 23:49 Completed BNP [NT Pro Brain Natriuretic Pep.] Stat Lab 08/22/24 23:49 Completed CBC w/Auto Diff [Complete Blood Count Auto Diff] Stat Lab 08/22/24 23:49 Completed CMP [Comprehensive Metabolic Panel] Stat Lab 08/22/24 23:49 Completed Full Resp Panel w/COVID ([facility]) Routine Lab 08/22/24 00:09 Completed PT INR [Prothrombin Time INR] Stat Lab 08/22/24 23:49 Completed Trop I [Troponin I] Stat Lab 11/22/24 23:49 Completed Troponin I Q3H Lab 08/23/24 03:00 Ordered Troponin I Q3H Lab 08/23/24 06:00 Ordered VBG [Venous Blood Gas] Stat RT 08/22/24 23:49 Completed MDM Narrative Medical Decision Narrative: In summary, this 39-year-old female with comorbidities as described in HPI presents to the emergency department today with cough, congestion, fever. On initial evaluation patient is hemodynamically stable, afebrile, she was hypoxic on arrival so was placed on 2 L nasal cannula and is now saturating well, expiratory wheezes present, I do not appreciate rhonchi or rales, mildly diminished breath sounds throughout, patient denies chest pain, no peripheral edema. Differential diagnosis includes but is not limited to viral syndrome, pneumonia, asthma exacerbation, fluid overload, ACS. In the setting of fever I had considered urinary tract infection but patient has no urinary symptoms. Based on these concerns, I ordered serum labs, cardiac workup, chest x-ray, viral swab, VBG. ECG personally interpreted demonstrates ventricular pacemaker, paced rhythm with rate 69, no prolonged TX, borderline prolonged QTc, no STEMI. Patient received DuoNebs, Solu-Medrol for treatment. Labs personally reviewed demonstrate no leukocytosis or anemia, platelets normal, PT/INR elevated appropriate since patient is on warfarin, VBG notable for hypercarbia with pCO2 54, lactic normal at 1.9, pH normal 7.31, CMP with trace hypokalemia, possibly due to beta agonist use, trace elevation in AST and alkaline phosphatase, nonspecific and nonactionable at this time, initial troponin is 0.03, BNP 338, these findings in the setting of patient's pneumonia with oxygen requirement concerning for increased cardiac strain and possible fluid overload, with her significant cardiac history this does concern me. XR personally interpreted demonstrates likely early left lower lobe infiltrate, see radiology read for final interpretation. On reevaluation patient continues to be stable, I discussed labs and imaging findings with mom. Patient has received IV Rocephin for treatment of pneumonia. With her cardiac history and changes in cardiac biomarkers including troponin and elevated BNP, I believe it is most appropriate for patient to be admitted for continued cardiac monitoring, serial troponins, and to ensure improvement of her clinical condition prior to discharge since she does have increased oxygen requirement from baseline. Mom in agreement. I discussed this case with the hospitalist, patient was graciously excepted for admission.
[2024-08-23] VITALS (21 sets, daily range): BP systolic 111–150; BP diastolic 62–82; PULSE 63–81; RESP 17–20; TEMP 36.4–36.7; O2SAT 86–100; BMI 45.2
--- NOTE | 2024-08-23 00:06 | ECG_ITS ---
APPROVED REPORT Exam: Resting ECG HR:69 bpm ECG Measurements Heart Rate 69 AXES SD 219 P 110 QRSd 159 QRS 263 QT 452 T 76 QTc 472 Conclusion ELECTRONIC VENTRICULAR PACEMAKER ABNORMAL RHYTHM ECG No STEMI Electronically signed by : EMIL JIMENEZ, 08/23/2024 07:27:27
[2024-08-23] MEDS: IPRATROPIUM/ALBUTEROL 3 ML NEB 9 ML IH (00:09)
[2024-08-23 00:17] LABS: Adenovirus,PCR Not Detected (NotDetected); Bordetella Pertussis Not Detected (NotDetected); Chlamydophila Pneumoniae, PCR Not Detected (NotDetected); Coronavirus 19, PCR Not Detected (NotDetected); Coronavirus 229E Not Detected (NotDetected); Coronavirus NL63 Not Detected (NotDetected); Coronavirus OC43 Not Detected (NotDetected); Coronovirus HKU1,PCR Not Detected (NotDetected); Human Metapneumovirus Not Detected (NotDetected); Influenza A, PCR Not Detected (NotDetected); Influenza AH1, 2009 Not Detected (NotDetected); Influenza AH1, PCR Not Detected (NotDetected); Influenza AH3,PCR Not Detected (NotDetected); Influenza B, PCR Not Detected (NotDetected); Mycoplasma Pneumoniae, PCR Not Detected (NotDetected); Parainfluenza 1, PCR Not Detected (NotDetected); Parainfluenza 2, PCR Not Detected (NotDetected); Parainfluenza 3, PCR Not Detected (NotDetected); Parainfluenza 4, PCR Not Detected (NotDetected); Rhinovirus/Enterovirus Not Detected (NotDetected)
[2024-08-23] MEDS: METHYLPREDNISOLONE SOD SUCC 125MG VIAL 125 MG IV (01:03)
[2024-08-23] MEDS: CEFTRIAXONE 1 GM 1 GM in 0.9 % SODIUM CHLORIDE 50 ML IV (01:13)
[2024-08-23 01:18] LABS: Basophils # 0.2 K/mm3 (0-0.2); Basophils % 2.2 % (0.1-2.0); Eosinophils # 0.2 K/mm3 (0.0-0.4); Eosinophils % 2.6 % (0.1-12.0); Hematocrit 47.4 % (37.0-47.0); Hemoglobin 15.8 g/dL (12.2-16.2); Lymphocytes # 2.8 K/mm3 (0.7-4.5); Lymphocytes % 41.1 % (10-50); Mean Corpuscular HGB Conc 33.4 g/dL (31.8-35.4); Mean Corpuscular Hemoglobin 32.2 pg (27.0-31.2); Mean Corpuscular Volume 96.5 fl (81-99); Mean Platelet Volume 7.3 fl (7.4-10.4); Monocytes # 0.3 K/mm3 (0.1-1.0); Monocytes % 4.5 % (1.7-9.3); Neutrophils # 3.4 K/mm3 (1.8-7.8); Neutrophils % 49.6 % (37.0-80.0); Platelet Count 164 K/mm3 (142-424); Red Blood Count 4.91 M/mm3 (4.20-5.40); Red Cell Distribution Width 15.5 % (11.5-17.5); White Blood Count 6.8 K/mm3 (4.8-10.8)
[2024-08-23 01:22] LABS: Lactate Venous 1.9 mmol/L (0.4-2.0); VBG Base Excess 0.5 mmol/L (-2.4-2.3); VBG HCO3 26.7 mmol/L (23-30); VBG Oxygen Saturation 87.4 % (50-70); VBG PH 7.31 mmol/L (7.31-7.41); VBG PO2 57.5 mmol/L (28-40); VBG Total CO2 28.4 mmol/L (23-27)
[2024-08-23 01:24] LABS: Albumin Level 4.1 g/dl (3.5-5.0); Chloride 103 mmol/L (98-107); Sodium 139 mmol/L (136-145)
[2024-08-23 01:25] LABS: Potassium 3.4 mmoL/L (3.5-5.1)
[2024-08-23 01:27] LABS: Alanine Aminotransferase 40 U/L (12-78); Alkaline Phosphatase 130 U/L (38-126); Anion Gap 8.4 mEq/L (5-15); Aspartate Amino Transferase 45 U/L (14-36); Bilirubin,Total 0.7 mg/dl (0.2-1.3); Blood Urea Nitrogen 12 mg/dl (7-17); Carbon Dioxide 31 mmol/L (22.0-30.0); Creatinine Clearance Estimated 56 mL/min (50-200); Estimated Glomerular Filt Rate 69 ml/min (>60); GFR (African American) 83 ML/MIN (>60); Total Protein,Serum 8.1 g/dl (6.3-8.2)
[2024-08-23 01:28] LABS: Calcium 9.1 mg/dl (8.4-10.2); Glucose 134 mg/dl (74-100)
[2024-08-23 01:29] LABS: INR 1.91 (0.9-1.1); Prothrombin Time 20.1 seconds (10.1-12.5)
[2024-08-23 01:37] LABS: NT Pro Brain Natriuretic Pep. 338 pg/mL (0-125)
[2024-08-23 01:39] LABS: Respiratory Syncytial Virus Detected (NotDetected)
[2024-08-23 01:40] LABS: Troponin I 0.03 ng/ml (0.00-0.034)
--- NOTE | 2024-08-23 02:00 | P.HP_ITS ---
History of Present Illness *Admission Date: 08/23/24 *Reason for visit:: Shortness of breath, Hypoxia on supplemental O2, Fever, Cough/Congestion. *History of present illness: 39-year-old female patient with Down syndrome and past medical history of CHF, CAD S/P pacemaker implantation, mitral valve replacement in 2010, hypothyroid, and KALEIGH who was admitted to the hospital for acute on chronic hypoxic respiratory failure associated with community-acquired pneumonia following an known sick exposure to RSV on Sunday of last week, who has had worsening cough and congestion for the past 5 days with a fever as high as 101. Patient was hypoxic in the emergency room despite supplemental O2 2L NC which she uses daily during exertion and at night with her CPAP. The patient showed some improvement following treatment in the emergency room however she remains hypoxic and the decision was made to admit her to the hospital for further evaluation and treatment. She denies CP, SLADE, NVD, or dizziness. [facility] Disclaimer: The information contained in this section may have been updated after the patient was seen, as this information can be updated by other users. Medical History (Updated 08/23/24 @ 03:44 by Imtiaz Damon APRN) CAD (coronary artery disease) Obstructive sleep apnea CHF (congestive heart failure) Pacemaker Surgical History (Updated 08/23/24 @ 02:58 by Abby Monae RN) Mechanical heart valve present Social History (Updated 08/23/24 @ 02:58 by Abby Monae RN) Smoking Status: Never smoker alcohol intake: never counseling provided: none substance use type: denies use current occupational status: disabled Travel in the last 8 weeks: None household members: family housing: house Other Medical History Have you received the Flu Vaccine for this season: Yes Have you received the Pneumonia Vaccine: Yes Review of Systems Review of Systems Review of systems:: pertinent systems reviewed and negative unless documented below Constitutional Constitutional: Reports fever(s) and Reports malaise ENT Ears, Nose, Mouth, and Throat: Reports nasal congestion and Reports nasal discharge *Cardiovascular Cardiovascular: Denies chest pain, Reports dyspnea and Reports dyspnea on exertion *Respiratory Respiratory: Reports change in phlegm color (Yellow/Green.), Reports chest congestion, Reports dyspnea, Reports dyspnea on exertion and Reports wheezing *Gastrointestinal Gastrointestinal: Denies abdominal pain, Denies loose stools, Denies melena, Denies nausea and Denies vomiting Hematologic/Lymphatic Hematologic/Lymphatic: Denies lymphadenopathy Allergic/Immunologic Allergic/Immunologic: Reports wheezing Meds Home Medications and Allergies Home Medications ?Medication ?Instructions ?Recorded ?Confirmed ?Type albuterol sulfate 90 mcg/actuation 2 puff inhalation Q6HP PRN 11/01/17 08/23/24 History aerosol inhaler Shortness Of Breath Or Wheezing 17 days cholecalciferol (vitamin D3) 50 2,000 unit PO DAILY 11/01/17 08/23/24 History mcg (2,000 unit) capsule furosemide 40 mg tablet 40 mg PO DAILY 90 days 11/01/17 08/23/24 History levothyroxine 125 mcg tablet 125 mcg PO DAILYDM 90 days 11/01/17 08/23/24 History warfarin 1 mg tablet 1 mg PO DAILY MECHANICAL VALVE 90 01/07/19 08/23/24 History days #90 tabs warfarin 6 mg tablet 6 mg PO DAILY MECHANICAL VALVE 01/07/19 08/23/24 History montelukast 10 mg tablet 10 mg PO PM 03/28/19 08/23/24 History potassium chloride 10 mEq 10 meq PO DAILY 03/28/19 08/23/24 History tablet,extended release azelastine 137 mcg (0.1 %) nasal 2 spray intranasal DAILY Allergy 08/23/24 08/23/24 History spray Symptoms loratadine 10 mg tablet (Claritin) 10 mg PO DAILY 08/23/24 08/23/24 History metoprolol succinate 25 mg 12.5 mg PO DAILY 08/23/24 08/23/24 History tablet,extended release 24 hr norethindrone (contraceptive) 0.35 0.35 mg PO DAILY 08/23/24 08/23/24 History mg tablet New Prescriptions to Start Prescriptions: Allergies Allergy/AdvReac Type Severity Reaction Status Date / Time doxycycline Allergy Mild Unknown Verified 08/23/24 02:38 allergy reaction amoxicillin Allergy Unknown Verified 08/23/24 02:38 allergy reaction Milk Containing Products Allergy Vomiting Verified 08/23/24 02:38 (Dairy) Exam Data for Last 24 hours Vital signs and Labs for Last 24 Hours: Temp Pulse Resp BP Pulse Ox O2 Del Method O2 Flow Rate 98.2 F 71 18 107/54 L 100 Nasal Cannula 2 08/22/24 23:49 08/23/24 00:15 08/22/24 23:49 08/22/24 23:49 08/23/24 00:15 08/23/24 00:09 08/23/24 00:09 Laboratory Results - last 24 hr 08/22/24 00:09: Chlamy pneumoniae PCR Not detected, Adenovirus (PCR) Not detected, B. pertussis DNA (PCR) Not detected, Coronavirus OC43 (PCR) Not detected, Coronavirus HKU1 (PCR) Not detected, Coronavirus 229E (PCR) Not detected, SARS-CoV-2 (PCR) Not detected, Coronavirus NL63 (PCR) Not detected, Human Metapneumovir PCR Not detected, Influenza A (H1) PCR Not detected, Influ A (H1N1/) PCR Not detected, Influenza A (H3) PCR Not detected, Influenza Type A (PCR) Not detected, Influenza Type B (PCR) Not detected, M. pneumoniae (PCR) Not detected, Parainfluenza 1 (PCR) Not detected, Parainfluenza 2 (PCR) Not detected, Parainfluenza 3 (PCR) Not detected, Parainfluenza 4 (PCR) Not detected, RSV (PCR) Detected A, Entero/Rhino (PCR) Not detected 08/22/24 23:49: VBG pH 7.31, VBG pCO2 54.0 H, VBG pO2 57.5 H, VBG HCO3 26.7, VBG Total CO2 28.4 H, VBG O2 Saturation 87.4 H, VBG Base Excess 0.5, VBG Lactic Acid 1.9 08/23/24 01:08: WBC 6.8, RBC 4.91, Hgb 15.8, Hct 47.4 H, MCV 96.5, MCH 32.2 H, MCHC 33.4, RDW 15.5, Plt Count 164, MPV 7.3 L, Neut % (Auto) 49.6, Lymph % (Auto) 41.1, [place] % (Auto) 4.5, Eos % (Auto) 2.6, Baso % (Auto) 2.2 H, Neut # (Auto) 3.4, Lymph # (Auto) 2.8, [place] # (Auto) 0.3, Eos # (Auto) 0.2, Baso # (Auto) 0.2, PT 20.1 H, INR 1.91 H, Sodium 139, Potassium 3.4 L, Chloride 103, Carbon Dioxide 31 H, Anion Gap 8.4, BUN 12, Creatinine 0.90, Estimated Creat Clear 56, Estimated GFR 69, Est GFR ( Amer) 83, Glucose 134 H, Calcium 9.1, Total Bilirubin 0.7, AST 45 H, ALT 40, Alkaline Phosphatase 130 H, Troponin I 0.03, NT-Pro-B Natriuret Pep 338 H, Total Protein 8.1, Albumin 4.1, Globulin 4.0 H, Albumin/Globulin Ratio 1.0 L I & O for Last 24 hours: Intake & Output 08/20/24 08/21/24 08/22/24 08/23/24 23:59 23:59 23:59 23:59 Weight 101.151 kg Constitutional Constitutional: mild distress, obese and cooperative *Routine HEENT Exam Head: Present normocephalic and atraumatic Eye: Present EOMI ENT: Present mucous membranes moist and external ear normal; Absent sinus tenderness *Routine Neck Exam Neck: Present full ROM; Absent lymphadenopathy *Routine Respiratory Exam Respiratory: Present decreased breath sounds, prolonged expiratory phase, wheezes and diminished air movement *Routine Cardiovascular Exam Cardiovascular: Present RRR *Routine Abdominal Exam Abdominal: Present soft; Absent tenderness *Routine Rectal Exam Rectal:: deferred *Routine Genitalia Exam Genitalia:: deferred *Routine Extremities Exam Extremities: Present full ROM Routine Back/Spine/Pelvis Exam Back/Spine: Present full ROM *Routine Skin Exam Skin: Present intact, dry and warm *Routine Neurological Exam Neurological: Present alert and oriented X3 Routine Psychiatric Exam Psychiatric: Present normal affect H&P: Result Imaging and Cardiology Chest x-ray: Status: image reviewed by me and final report (Possible left basilar infiltration. ) EKG: Status: image reviewed by me (V-Paced.) and final report Assessment and Plan *Assessment and plan (1) Pneumonia: Status: Acute Qualifiers: Laterality: left Lung location: lower lobe of lung Pneumonia type: due to unspecified organism Qualified Code(s): J18.9 - Pneumonia, unspecified organism Category: Medical Code(s): J18.9 - Pneumonia, unspecified organism (2) RSV (acute bronchiolitis due to respiratory syncytial virus): Status: Acute Category: Medical Code(s): J21.0 - Acute bronchiolitis due to respiratory syncytial virus (3) Elevated brain natriuretic peptide (BNP) level: Status: Acute Category: Medical Code(s): R79.89 - Other specified abnormal findings of blood chemistry (4) Obstructive Sleep Apnea-Hypopnea Syndrome: Status: Chronic Category: Medical Code(s): G47.33 - Obstructive sleep apnea (adult) (pediatric) (5) CAD (coronary artery disease): Status: Acute Category: Medical Code(s): I25.10 - Atherosclerotic heart disease of [place] coronary artery without angina pectoris (6) CHF (congestive heart failure): Status: Acute Category: Medical Code(s): I50.9 - Heart failure, unspecified (7) Pacemaker: Status: Acute Category: Medical Code(s): Z95.0 - Presence of cardiac pacemaker Plan 39-year-old female with extensive cardiac history, Down syndrome, presents with worsening respiratory distress. Workup in the ER concerning for pneumonia and RSV positive with increased oxygen requirement. Discussed case with ER physician, request admission for further management. Medicine agreed to admit. Problems addressed as follows: CAP/RSV Acute on Chronic Hypoxic Respiratory Failure CXR - Possible left basilar infiltration. Hypoxic on presentation - 80% on 2L with ambulation. Respiratory Panel - RSV+. Flu/COVID negative. Sputum culture pending. ProCal pending. CRP pending. Continue IV ABX Rocephin 1G Q24H, Azithromycin 500MG Q24H. Continue Duonebs Q6H WA. Continue IV Solumedrol 40MG BID. Trend labs and inflammatory markers. Continue supplemental O2, titrate as necessary. Continue home CPAP QHS. Cardiac/VS/O2 monitoring. Hx of CAD on OAC - Coumadin Hx of Mitral Valve Replacement - 2010 Hx of Implanted Pacemaker Hx of CHF ProBNP - 338. K - 3.4. Electrolyte replacement protocol ordered. Continue Lasix 40MG PO QD, Metoprolol 12.5MG PO QD, Potassium 10mEq PO QD. Continue Coumadin 7MG PO QD. PT/INR - 20.1/1.91. Daily PT/INR. Consult to pharmacy for Coumadin dosing. Hypothyroid Continue home Synthroid 125MCG PO QAM. BMI 47.4 adds complexity to care. I have personally reviewed pertinent laboratory data and imaging results as well as documentation in the patient's EMR. Laboratory and imaging orders per the above plan have been addressed. Home medications have been reviewed. Patient's case, assessment and plan have been discussed on this date with patient and RN. Medical Decision Making: Patient presenting with SOB, Hypoxia, Fever, CAP. Case discussed with ED provider, decision made to admit to hospital. Rounded on patient after nurse practitioner. Personally examined and interviewed patient. Agree with exam findings and care plan as documented.
--- NOTE | 2024-08-23 02:29 | PC.NURSE ---
Pt arrived to floor via wheelchair @02:27
[2024-08-23] MEDS: SODIUM CHLORIDE 3% 15ML NEB 3 ML IH (03:14)
[2024-08-23] MEDS: AZITHROMYCIN 500 MG in 0.9 % SODIUM CHLORIDE 250 ML 250 MG IV (03:17)
[2024-08-23 03:24] LABS: Troponin I 0.02 ng/ml (0.00-0.034)
[2024-08-23] MEDS: POTASSIUM CHLORIDE 20MEQ TAB 40 MEQ PO ×2 (03:24→08:08)
--- NOTE | 2024-08-23 04:12 | PC.NURSE ---
TORITO stated dayshift pharmacy would dose coumadin.
[2024-08-23] MEDS: IPRATROPIUM/ALBUTEROL 3 ML NEB IH ×3 (05:46→18:05)
[2024-08-23 06:18] LABS: INR 1.92 (0.9-1.1); Prothrombin Time 20.2 seconds (10.1-12.5)
[2024-08-23 06:22] LABS: C-Reactive Protein 60.1 mg/L (0-4)
[2024-08-23 06:30] LABS: Troponin I 0.02 ng/ml (0.00-0.034)
[2024-08-23 06:34] LABS: Procalcitonin 0.034 ng/mL (0.0-2.0)
--- NOTE | 2024-08-23 06:52 | PC.NURSE ---
Patient is alert and oriented, mother at bedside. Home CPAP used, patient continued to drop into 80s, switched to our CPAP and patient was able to maintain O2 sat >90%. Pt ambulates to the restroom with standby assist. 2L NC when off of CPAP. Call light in reach.
[2024-08-23] MEDS: ACETAMINOPHEN 500MG TAB 1000 MG PO (08:18)
--- NOTE | 2024-08-23 10:22 | HMH.PHAINT1 ---
Pharmacy Intervention Comments: MEDICATION RECONCILIATION COMPLETE USING EXTERNAL PHARMACY FILL HISTORY AND LIST PROVIDED BY MOTHER.
[2024-08-23] MEDS: ENOXAPARIN 100MG/ML SYRINGE 100 MG SUBCUT (11:58)
[2024-08-23] MEDS: WARFARIN 2MG TABLET 2 MG PO (11:59)
[2024-08-23] MEDS: WARFARIN 5MG TABLET 5 MG PO (11:59)
--- NOTE | 2024-08-23 13:23 | PC.NURSE ---
PT WAS SATING 86% ON ROOM AIR WHILE AT REST IN THE BED.
--- NOTE | 2024-08-23 13:24 | PC.NURSE ---
BEACH LIFEGUARD AND MYSELF PLACED HUMIDIFICATION ON PT'S OXYGEN AT APPROX. 1310. ABOUT TEN MINUTES LATER MEDICAL TYPIST CALLED AND STATED PT'S O2 WAS AT 86 % THIS RN WENT STRAIGHT TO PT'S ROOM TO CHECK ON PT. PT HAS THE NASAL CANNULA ON. UPON FURTHER ASSESSMENT THE FLOW METER FOR THE PT'S OXYGEN WAS TURNED OFF AND HUMIDIFICATION WAS NOT BUBBLING. PT'S MOTHER WAS ALSO ASKING HOW TO TURN THE BIPAP ON AND WHAT THE SETTINGS WERE. PT'S MOTHER/CAREGIVER WAS EDUCATED THAT RESPIRATORY THERAPY WERE THE ONLY ONES TO USE THE BIPAP AND SHE WAS EDUCATED NOT TO TOUCH THE FLOW METER FOR PT'S OXYGEN.
[2024-08-23] MEDS: FUROSEMIDE 40 MG TABLET PO (13:36)
--- NOTE | 2024-08-23 13:50 | PC.NURSE ---
PT'S MOTHER TOOK PT'S OXYGEN OFF AND TOOK HER TO THE BATHROOM. PT'S OXYGEN DROPPED TO 82% ON ROOM AIR WHILE WALKING TO AND FROM THE BATHROOM. THIS RN PLACED O2 BACK ON PT AND EDUCATED THE PT'S MOTHER AND CAREGIVER THAT THE PT'S OXYGEN NEEDED TO STAY ON WITH AMBULATION DUE TO HOW SEVERELY THE PT'S OXYGEN DROPS WITH AMBULATION. PT'S MOTHER TOLD THIS RN AND THE MD THAT PT USUALLY WEARS OXYGEN WHILE AMBULATING AT HOME.
[2024-08-23] MEDS: METHYLPREDNISOLONE SOD SUCC 40MG VIAL 40 MG IV (18:07)
[2024-08-23] MEDS: MONTELUKAST SODIUM 10MG TAB 10 MG PO (18:07)
--- NOTE | 2024-08-23 18:28 | PC.NURSE ---
PT HAS DONE WELL TODAY. VSS. CONTINUES WITH O2 REQUIREMENT OF 2L NASAL CANNULA. STAFF HAS HAD SEVERAL EPISODES OF EDUCATION WITH THE PATIENT'S MOTHER AND CAREGIVER ON NOT TURNING OFF OR REMOVING PT'S OXYGEN THIS SHIFT FROM THIS RN AND RESPIRATORY THERAPY. PT STATES THAT SHE IS FEELING BETTER. FAMILY HAS HAD LOTS OF QUESTIONS AND ARE VERY INVOLVED IN HER CARE. PT HAS BEEN AMBULATING WELL IN THE ROOM.
[2024-08-24] VITALS (8 sets, daily range): BP systolic 100–147; BP diastolic 61–78; PULSE 70–86; RESP 14–20; TEMP 36.5–36.6; O2SAT 93–97; BMI 46.2
[2024-08-24] MEDS: AZITHROMYCIN 500 MG in 0.9 % SODIUM CHLORIDE 250 ML 250 MG IV (02:09)
--- NOTE | 2024-08-24 05:41 | PC.NURSE ---
Alert and oriented. Mother remains at the bedside. Standby assist. CPAP throughout the night, changed pulse ox throughout night due to not matching resp. pulse ox. Patient has done well with no complaints. Call light in reach.
[2024-08-24 06:07] LABS: Basophils # 0.1 K/mm3 (0-0.2); Basophils % 0.8 % (0.1-2.0); Eosinophils % 0.4 % (0.1-12.0); Hematocrit 44.5 % (37.0-47.0); Hemoglobin 15.1 g/dL (12.2-16.2); Lymphocytes # 0.9 K/mm3 (0.7-4.5); Lymphocytes % 11.9 % (10-50); Mean Corpuscular HGB Conc 33.9 g/dL (31.8-35.4); Mean Corpuscular Hemoglobin 32.3 pg (27.0-31.2); Mean Corpuscular Volume 95.2 fl (81-99); Mean Platelet Volume 7.3 fl (7.4-10.4); Monocytes # 0.3 K/mm3 (0.1-1.0); Monocytes % 4.2 % (1.7-9.3); Neutrophils # 6.5 K/mm3 (1.8-7.8); Neutrophils % 82.8 % (37.0-80.0); Platelet Count 168 K/mm3 (142-424); Red Blood Count 4.68 M/mm3 (4.20-5.40); Red Cell Distribution Width 15.6 % (11.5-17.5); White Blood Count 7.8 K/mm3 (4.8-10.8)
[2024-08-24 06:09] LABS: Chloride 104 mmol/L (98-107)
[2024-08-24 06:10] LABS: Potassium 4.7 mmoL/L (3.5-5.1); Sodium 141 mmol/L (136-145)
[2024-08-24 06:13] LABS: Anion Gap 8.7 mEq/L (5-15); Blood Urea Nitrogen 19 mg/dl (7-17); Carbon Dioxide 33 mmol/L (22.0-30.0); Creatinine Clearance Estimated 72 mL/min (50-200); Estimated Glomerular Filt Rate 92 ml/min (>60); GFR (African American) 112 ML/MIN (>60); Glucose 128 mg/dl (74-100)
[2024-08-24 06:15] LABS: INR 2.63 (0.9-1.1); Prothrombin Time 26.8 seconds (10.1-12.5)
[2024-08-24] MEDS: IPRATROPIUM/ALBUTEROL 3 ML NEB IH ×2 (06:32→11:33)
[2024-08-24] MEDS: LEVOTHYROXINE 125MCG (0.125MG) TAB 125 MCG PO (06:36)
[2024-08-24] MEDS: METHYLPREDNISOLONE SOD SUCC 40MG VIAL 40 MG IV (06:36)
--- NOTE | 2024-08-24 07:28 | EXP.DC.SUM ---
General Admission date:: 08/23/24 Discharge date: 08/24/24 HPI HPI HPI: 39-year-old female patient with Down syndrome and past medical history of CHF, CAD S/P pacemaker implantation, mitral valve replacement in 2010, hypothyroid, and KALEIGH who was admitted to the hospital for acute on chronic hypoxic respiratory failure associated with community-acquired pneumonia following an known sick exposure to RSV on Sunday of last week, who has had worsening cough and congestion for the past 5 days with a fever as high as 101. Patient was hypoxic in the emergency room despite supplemental O2 2L NC which she uses daily during exertion and at night with her CPAP. The patient showed some improvement following treatment in the emergency room however she remains hypoxic and the decision was made to admit her to the hospital for further evaluation and treatment. She denies CP, SLADE, NVD, or dizziness. Hospital Course Hospital Course Hospital Course: Mr. Quezada is a 39-year-old female with extensive cardiac history, Down syndrome, chronic oxygen therapy who presented with worsening shortness of breath. Case was discussed with the ER after patient was found positive for RSV. Patient admitted for oxygen therapy, monitoring, treatment of pneumonia. Did well during admission. Tolerating her home CPAP with increased oxygen at night. Otherwise stable on 2 L oxygen during the day. Significant improvement in lung exam. Stable to discharge home with continued management as an outpatient. Close follow-up with her prepress stripper at . Problems addressed as follows: CAP/RSV Acute on Chronic Hypoxic Respiratory Failure -Presentation, patient having significant cough and shortness of breath. Chest x-ray obtained showing possible left basilar infiltrate with increased perihilar congestion. Respiratory panel positive for RSV. Was 80% on 2 L with ambulation at time of arrival. Increased oxygen initially on admission. Showed gradual improvement after initiation of steroids and antibiotics and aggressive pulmonary toilet. Trialed patient's home CPAP overnight prior to discharge, necessitated 6 L through her home CPAP but tolerated well and maintain sats above 90%. Otherwise on 2 L nasal cannula during the day with sats in the mid 90s. Showed significant improvement during admission. Will transition to complete course with azithromycin for 5 days and steroids for 5 days. White count remained normal at 7.8. Kidney function and electrolytes normal. Stable to discharge home. [facility] contacted and patient provided with larger concentrator to allow for 6 L on her CPAP at night. Continue 2 L during the day wean as tolerated. Patient has nebulizer at home, nebulizer solution with DuoNebs sent for use every 4-6 hours as needed for dyspnea and wheeze. Hx of CAD on OAC -continue Coumadin. INR 2.6 on day of discharge. In therapeutic range of 2.5-3.5. Hx of Mitral Valve Replacement - 2010 Hx of Implanted Pacemaker Hx of CHF ProBNP - 338. -Resumed her diuretic regimen and continued her heart failure regimen with metoprolol and potassium replacement. Continued home Coumadin regimen. INR therapeutic on day of discharge. Pharmacy assisted with management. Stable to discharge home and continue home regimen. Hypothyroid: continue home Synthroid 125MCG PO QAM. BMI 47.4 adds complexity to care. Extensive discussion with mother, patient, siblings. Family comfortable taking patient home on current regimen given her improvement. Patient interactive and involved in decisions. She is fully aware of her health and helps remember her appointments. Patient showed gradual improvement. Stable for discharge. Total time spent on discharge 42 minutes in counseling, documentation, chart review, and direct care with patient. Exam Data for Last 24 hours Vital signs and Labs for Last 24 Hours: Temp Pulse Resp BP Pulse Ox O2 Del Method O2 Flow Rate 97.7 F 72 16 100/63 L 97 CPAP 6 08/24/24 04:00 08/24/24 06:32 08/24/24 04:00 08/24/24 04:00 08/24/24 06:32 08/24/24 06:44 08/24/24 06:32 FiO2 28 08/23/24 18:42 Laboratory Results - last 24 hr 08/24/24 05:55: WBC 7.8, RBC 4.68, Hgb 15.1, Hct 44.5, MCV 95.2, MCH 32.3 H, MCHC 33.9, RDW 15.6, Plt Count 168, MPV 7.3 L, Neut % (Auto) 82.8 H, Lymph % (Auto) 11.9, [place] % (Auto) 4.2, Eos % (Auto) 0.4, Baso % (Auto) 0.8, Neut # (Auto) 6.5, Lymph # (Auto) 0.9, [place] # (Auto) 0.3, Eos # (Auto) 0.0, Baso # (Auto) 0.1, PT 26.8 H, INR 2.63 H, Sodium 141, Potassium 4.7 D, Chloride 104, Carbon Dioxide 33 H, Anion Gap 8.7, BUN 19 H D, Creatinine 0.70 D, Estimated Creat Clear 72, Estimated GFR 92, Est GFR ( Amer) 112 D, Glucose 128 H, Calcium 9.0 I & O for Last 24 hours: Intake & Output 08/21/24 08/22/24 08/23/24 08/24/24 23:59 23:59 23:59 23:59 Intake Total 1650 / 1650 Output Total 0 / 0 0 / 0 Balance 1650 / 1650 0 / 0 Weight 101.151 kg 101.831 kg 104 kg Microbiology Reports for the Last 24 Hours: Microbiology 08/23/24 04:57 Sputum - Expectorated Sputum Gram Stain - Final 08/23/24 04:57 Sputum - Expectorated Sputum Sputum Culture - Preliminary Constitutional Constitutional: no acute distress, morbidly obese, chronically ill appearing and cooperative *Routine HEENT Exam Head: Present normocephalic and atraumatic Eye: Present EOMI and PERRL ENT: Present mucous membranes moist Comments: Syndromic increases *Routine Respiratory Exam Respiratory: Absent accessory muscle use, prolonged expiratory phase, rhonchi, wheezes or crackles *Routine Cardiovascular Exam Cardiovascular: Present RRR and murmur *Routine Abdominal Exam Abdominal: Present soft *Routine Rectal Exam Patient deferred: visual exam *Routine Exam Patient deferred: external exam *Routine Extremities Exam Extremities: Absent cyanosis, clubbing or edema *Routine Skin Exam Skin: Present intact and erythema (Mild facial plethora); Absent cyanosis or pallor *Routine Neurological Exam Neurological: Present alert, oriented X3 and moving all extremities; Absent altered mental status Results Data Completed and Pending Labs on day of discharge: Labs from last 24 hours 08/24/24 05:55 WBC 7.8 RBC 4.68 Hgb 15.1 Hct 44.5 MCV 95.2 MCH 32.3 H MCHC 33.9 RDW 15.6 Plt Count 168 MPV 7.3 L Neut % (Auto) 82.8 H Lymph % (Auto) 11.9 [place] % (Auto) 4.2 Eos % (Auto) 0.4 Baso % (Auto) 0.8 Neut # (Auto) 6.5 Lymph # (Auto) 0.9 [place] # (Auto) 0.3 Eos # (Auto) 0.0 Baso # (Auto) 0.1 PT 26.8 H INR 2.63 H Sodium 141 Potassium 4.7 D Chloride 104 Carbon Dioxide 33 H Anion Gap 8.7 BUN 19 H D Creatinine 0.70 D Estimated Creat Clear 72 Estimated GFR 92 Est GFR ( Amer) 112 D Glucose 128 H Calcium 9.0 Preliminary micro results at discharge 08/23/24 04:57 Sputum Culture - Preliminary Sputum - Expectorated Sputum DS: Diagnosis Discharge Diagnosis (1) Pneumonia: Status: Acute Code(s): J18.9 - Pneumonia, unspecified organism Qualifiers: Laterality: left Lung location: lower lobe of lung Pneumonia type: due to unspecified organism Qualified Code(s): J18.9 - Pneumonia, unspecified organism (2) RSV (acute bronchiolitis due to respiratory syncytial virus): Status: Acute Code(s): J21.0 - Acute bronchiolitis due to respiratory syncytial virus (3) Elevated brain natriuretic peptide (BNP) level: Status: Acute Code(s): R79.89 - Other specified abnormal findings of blood chemistry (4) Obstructive Sleep Apnea-Hypopnea Syndrome: Status: Chronic Code(s): G47.33 - Obstructive sleep apnea (adult) (pediatric) (5) CAD (coronary artery disease): Status: Acute Code(s): I25.10 - Atherosclerotic heart disease of [place] coronary artery without angina pectoris (6) CHF (congestive heart failure): Status: Acute Code(s): I50.9 - Heart failure, unspecified (7) Pacemaker: Status: Acute Code(s): Z95.0 - Presence of cardiac pacemaker Meds Home Medications and Allergies Home Medications ?Medication ?Instructions ?Recorded ?Confirmed ?Type albuterol sulfate 90 mcg/actuation 2 puff inhalation Q6HP PRN 11/01/17 08/23/24 History aerosol inhaler Shortness Of Breath Or Wheezing 17 days cholecalciferol (vitamin D3) 50 2,000 unit PO DAILY 11/01/17 08/23/24 History mcg (2,000 unit) capsule furosemide 40 mg tablet 40 mg PO DAILY 90 days 11/01/17 08/23/24 History levothyroxine 125 mcg tablet 125 mcg PO DAILYDM 90 days 11/01/17 08/23/24 History warfarin 1 mg tablet 1 mg PO DAILY MECHANICAL VALVE 90 01/07/19 08/23/24 History days #90 tabs warfarin 6 mg tablet 6 mg PO DAILY MECHANICAL VALVE 01/07/19 08/23/24 History montelukast 10 mg tablet 10 mg PO PM 03/28/19 08/23/24 History potassium chloride 10 mEq 10 meq PO DAILY 03/28/19 08/23/24 History tablet,extended release azelastine 137 mcg (0.1 %) nasal 2 spray intranasal DAILY Allergy 08/23/24 08/23/24 History spray Symptoms loratadine 10 mg tablet (Claritin) 10 mg PO DAILY 08/23/24 08/23/24 History metoprolol succinate 25 mg 12.5 mg PO DAILY 08/23/24 08/23/24 History tablet,extended release 24 hr norethindrone (contraceptive) 0.35 0.35 mg PO DAILY 08/23/24 08/23/24 History mg tablet azithromycin 250 mg tablet 250 mg PO DAILY 3 days #3 tabs 08/24/24 Rx ipratropium 0.5 mg-albuterol 3 mg 3 ml inhalation Q6HP PRN shortness 08/24/24 Rx (2.5 mg base)/3 mL nebulization of breath or wheezing #180 mL soln prednisone 20 mg tablet 40 mg (2 x 20 mg) PO DAILY 3 days 08/24/24 Rx #6 tabs New Prescriptions to Start Prescriptions: Jorge Holcomb ipratropium-albuterol Jorge Lucas prednisone Jorge Lucas Allergies Allergy/AdvReac Type Severity Reaction Status Date / Time doxycycline Allergy Mild Unknown Verified 08/23/24 02:38 allergy reaction amoxicillin Allergy Unknown Verified 08/23/24 02:38 allergy reaction Milk Containing Products Allergy Vomiting Verified 08/23/24 02:38 (Dairy) Discharge Plan Disposition Patient Disposition: Home Health Service Discharge Order Discharge Orders: Discharge Order (Routine); Ordered 08/24/24 Ordered By: Jorge Lucas Follow up Plan Follow up with: Marc Thakur MD [Primary Care Provider] - Enter time for follow up Prescriptions/Medication Reconciliation: New ipratropium-albuterol 0.5 mg-3 mg(2.5 mg base)/3 mL Solution For Nebulization 3 ml inhalation Q6HP PRN (Reason: shortness of breath or wheezing) Qty: 180 0RF azithromycin 250 mg tablet 250 mg PO DAILY 3 Days Qty: 3 0RF Rx Instructions: first tablet due 08/25/24 prednisone 20 mg tablet 40 mg PO DAILY 3 Days Qty: 6 0RF Continued warfarin 6 mg tablet 6 mg PO DAILY Rx Instructions: GIVE WITH 1 MG TABLET DAILY FOR 7 MG TOTAL. montelukast 10 mg tablet 10 mg PO PM potassium chloride 10 mEq tablet extended release 10 meq PO DAILY albuterol sulfate 90 mcg/actuation HFA aerosol inhaler 2 puff INHALATION Q6HP PRN (Reason: Shortness Of Breath Or Wheezing) 17 Days Patient Comments: furosemide 40 mg tablet 40 mg PO DAILY 90 Days Patient Comments: levothyroxine 125 mcg tablet 125 mcg PO DAILYDM 90 Days Patient Comments: cholecalciferol (vitamin D3) 2,000 unit capsule 2,000 unit PO DAILY warfarin 1 mg tablet 1 mg PO DAILY 90 Days Qty: 90 Patient Comments: 8mg Sunday, Sunday 7mg Sunday, Sunday, , Sunday, Sunday Rx Instructions: GIVE WITH 6 MG TABLET DAILY FOR 7 MG TOTAL. metoprolol succinate 25 mg tablet extended release 24 hr 12.5 mg PO DAILY norethindrone (contraceptive) 0.35 mg tablet 0.35 mg PO DAILY loratadine [Claritin] 10 mg Tablet 10 mg PO DAILY azelastine 137 mcg (0.1 %) [place],Non-Aerosol 2 spray intranasal DAILY Rx Instructions: administer into each nostril Problem Reconciliation Problems Reviewed?: Yes Patient Discharge Instructions ACTIVITY: Continue current activity DIET: continue same diet Patient Instructions: DI for Pneumonia -- Adult Print Language: Cam[place]onian Providers Primary Care Provider: Marc Thakur Admit Provider: Jorge Lucas Attending Provider: Jorge Lucas
[2024-08-24] MEDS: METOPROLOL SUCCINATE XL 25MG TABLET 12.5 MG PO (08:41)
[2024-08-24] MEDS: BUMETANIDE 1MG/4ML VIAL 1 MG IV (08:41)
[2024-08-24] MEDS: WARFARIN 5MG TABLET 5 MG PO (10:54)
[2024-08-24] MEDS: CEFTRIAXONE 1 GM 1 GM in 0.9 % SODIUM CHLORIDE 50 ML IV (12:51)
--- NOTE | 2024-08-25 09:44 | SW/DCPLANNER ---
Spoke with patients guardian on the phone. Guardian refused home health services at this time. Guardian took patient to her follow up appointments and got patients new prescription filled. Guardian had no concerns or questions at this time. Lambert Sloan
== END 2024-08-24 13:42 | disposition home health service (06) ==
LOC: ER 08-23 01:59 → 2ND 08-23 02:09
PROVIDERS: Nurse Practitioner Acute Care; Admitting Provider Internal Medicine Adolescent Medicine; Emergency Provider Emergency Medicine; PCP Family Medicine; Visit Provider Internal Medicine Adolescent Medicine
DX: J18.9 Pneumonia, unspecified organism (principal); J21.0 Acute bronchiolitis due to respiratory syncytial virus; J96.21 Acute and chronic respiratory failure with hypoxia; R79.89 Other specified abnormal findings of blood chemistry; G47.33 Obstructive sleep apnea (adult) (pediatric); I25.10 Atherosclerotic heart disease of native coronary artery without angina pectoris; I50.9 Heart failure, unspecified; Z95.0 Presence of cardiac pacemaker; Z79.01 Long term (current) use of anticoagulants; Z79.899 Other long term (current) drug therapy; Z95.2 Presence of prosthetic heart valve; Z99.81 Dependence on supplemental oxygen; Q90.9 Down syndrome, unspecified
CPT/HCPCS: 71046; 80048; 80053; 82803; 83880; 84145; 84484; 85025; 85610; 86140; 87070; 87205; 87633; 93005; 94640; 94660; 94761; 99221; 99285; G0378; J0456; J0696; J1650; J1939; J2919; J7050; J7620

== ENCOUNTER 2024-09-17 13:09 | Outpatient (CLI) | payer MEDICARE, OTHER, SELFPAY ==
[2024-09-17 13:43] LABS: Potassium 4.5 mmoL/L (3.5-5.1)
== END 2024-09-17 23:59 | disposition home or self-care (01) ==
LOC: LAB 13:11
PROVIDERS: PCP Family Medicine; Visit Provider Family Medicine
DX: E87.6 Hypokalemia (principal)
CPT/HCPCS: 36415; 84132

== ENCOUNTER 2024-10-13 10:03 | Outpatient (CLI) | payer MEDICARE, OTHER, SELFPAY ==
[2024-10-13 10:51] LABS: Potassium 4.6 mmoL/L (3.5-5.1)
== END 2024-10-13 23:59 | disposition home or self-care (01) ==
LOC: LAB 10:04
PROVIDERS: PCP Family Medicine; Visit Provider Family Medicine
DX: E87.6 Hypokalemia (principal)
CPT/HCPCS: 36415; 84132

== ENCOUNTER 2024-10-26 19:13 | Emergency (ER) | payer MEDICARE, OTHER, SELFPAY ==
[2024-10-26 19:14] VITALS: BP 177/78; PULSE 70; RESP 24; TEMP 37.3; O2SAT 96; BMI 46.6
--- NOTE | 2024-10-26 19:29 | ED_ITS ---
Discharge Plan Disposition Patient Disposition: Home, Self-Care Condition: Good Prescriptions Prescriptions: New cephalexin 500 mg capsule 500 mg PO Q8H 7 Days Qty: 21 0RF No Action warfarin 6 mg tablet 6 mg PO DAILY Rx Instructions: GIVE WITH 1 MG TABLET DAILY FOR 7 MG TOTAL. montelukast 10 mg tablet 10 mg PO PM potassium chloride 10 mEq tablet extended release 10 meq PO DAILY albuterol sulfate 90 mcg/actuation HFA aerosol inhaler 2 puff INHALATION Q6HP PRN (Reason: Shortness Of Breath Or Wheezing) 17 Days Patient Comments: furosemide 40 mg tablet 40 mg PO DAILY 90 Days Patient Comments: levothyroxine 125 mcg tablet 125 mcg PO DAILYDM 90 Days Patient Comments: cholecalciferol (vitamin D3) 2,000 unit capsule 2,000 unit PO DAILY warfarin 1 mg tablet 1 mg PO DAILY 90 Days Qty: 90 Patient Comments: 8mg Sunday, Sunday 7mg Sunday, Sunday, , Sunday, Sunday Rx Instructions: GIVE WITH 6 MG TABLET DAILY FOR 7 MG TOTAL. metoprolol succinate 25 mg tablet extended release 24 hr 12.5 mg PO DAILY norethindrone (contraceptive) 0.35 mg tablet 0.35 mg PO DAILY loratadine [Claritin] 10 mg Tablet 10 mg PO DAILY azelastine 137 mcg (0.1 %) [place],Non-Aerosol 2 spray intranasal DAILY Rx Instructions: administer into each nostril ipratropium-albuterol 0.5 mg-3 mg(2.5 mg base)/3 mL Solution For Nebulization 3 ml inhalation Q6HP PRN (Reason: shortness of breath or wheezing) Qty: 180 0RF azithromycin 250 mg tablet 250 mg PO DAILY 3 Days Qty: 3 0RF Rx Instructions: first tablet due 08/25/24 prednisone 20 mg tablet 40 mg PO DAILY 3 Days Qty: 6 0RF Referrals Follow up/Referrals: Marc Thakur MD [Primary Care Provider] - See instructions Activity Restrictions/Add. Instructions Additional Instructions/Restrictions: I have prescribed a course of antibiotics for UTI, after her urinalysis and CT scan were concerning for a UTI, as well as the fever. Given that her symptoms have improved she is stable for discharge at this time. Please return with any new or worsening symptoms. Clinical Impressions Clinical Impression: Pyelonephritis Instructions Patient Instructions: DI for Acute Abdominal Pain Print Language Print Language: Ivorian Discharge ED Provider: Del Wetzel General Adult HPI General Chief complaint: Abdominal Pain Stated complaint: fever Time Seen by Provider: 10/26/24 19:29 History of Present Illness HPI narrative: Patient presents for evaluation of generalized abdominal pain, gradual in onset, constant, stable in course, she reports associated dysuria, nausea, vomiting, no previous therapies. Patient has not had similar symptoms before. Please note that above description of symptoms, in this electronic medical record under categorization of recalled from ER triage doctor by RN are reflective of an initial nursing assessment, however, is not reflective of my full history and physical exam that was personally taken and clarified. Consequentially, this preceding description of symptoms, which may include the patient's categorized chief complaint in the EMR, do not reflect my personal clinical impression, and the ultimate description of history of present illness and patient stated complaints should be deferred to this section of the note. Unless stated otherwise or congruent with this section of the note, additional signs, symptoms, or incongruence should be interpreted as inaccurate with my clinical impression. Related Data Home Medications ?Medication ?Instructions ?Recorded ?Confirmed albuterol sulfate 90 mcg/actuation 2 puff inhalation Q6HP PRN 11/01/17 08/23/24 aerosol inhaler Shortness Of Breath Or Wheezing 17 days cholecalciferol (vitamin D3) 50 2,000 unit PO DAILY 11/01/17 08/23/24 mcg (2,000 unit) capsule furosemide 40 mg tablet 40 mg PO DAILY 90 days 11/01/17 08/23/24 levothyroxine 125 mcg tablet 125 mcg PO DAILYDM 90 days 11/01/17 08/23/24 warfarin 1 mg tablet 1 mg PO DAILY MECHANICAL VALVE 90 01/07/19 08/23/24 days #90 tabs warfarin 6 mg tablet 6 mg PO DAILY MECHANICAL VALVE 01/07/19 08/23/24 montelukast 10 mg tablet 10 mg PO PM 03/28/19 08/23/24 potassium chloride 10 mEq 10 meq PO DAILY 03/28/19 08/23/24 tablet,extended release azelastine 137 mcg (0.1 %) nasal 2 spray intranasal DAILY Allergy 08/23/24 08/23/24 spray Symptoms loratadine 10 mg tablet (Claritin) 10 mg PO DAILY 08/23/24 08/23/24 metoprolol succinate 25 mg 12.5 mg PO DAILY 08/23/24 08/23/24 tablet,extended release 24 hr norethindrone (contraceptive) 0.35 0.35 mg PO DAILY 08/23/24 08/23/24 mg tablet Previous Rx's ?Medication ?Instructions ?Recorded azithromycin 250 mg tablet 250 mg PO DAILY 3 days #3 tabs 08/24/24 ipratropium 0.5 mg-albuterol 3 mg 3 ml inhalation Q6HP PRN shortness 08/24/24 (2.5 mg base)/3 mL nebulization of breath or wheezing #180 mL soln prednisone 20 mg tablet 40 mg (2 x 20 mg) PO DAILY 3 days 08/24/24 #6 tabs cephalexin 500 mg capsule 500 mg PO Q8H 7 days #21 caps 10/26/24 Allergies Allergy/AdvReac Type Severity Reaction Status Date / Time doxycycline Allergy Mild Unknown Verified 08/23/24 02:38 allergy reaction amoxicillin Allergy Unknown Verified 08/23/24 02:38 allergy reaction Milk Containing Products Allergy Vomiting Verified 08/23/24 02:38 (Dairy) [facility] Disclaimer: The information contained in this section may have been updated after the patient was seen, as this information can be updated by other users. Medical History (Updated 10/26/24 @ 22:15 by Del Wetzel MD) CAD (coronary artery disease) Obstructive sleep apnea CHF (congestive heart failure) Pacemaker Surgical History (Updated 08/23/24 @ 02:58 by Abby Monae RN) Mechanical heart valve present Social History (Updated 08/23/24 @ 02:58 by Abby Monae RN) Smoking Status: Never smoker alcohol intake: never counseling provided: none substance use type: denies use current occupational status: disabled Travel in the last 8 weeks: None household members: family housing: house Have you lived/traveled outside [place] in past 30 days?: No Contact w/someone who lives/traveled outside US past 30 days?: No Exposure to someone with infectious disease in past 14 days?: No Do you have a fever (greater than 100.4 F or 38 C)?: Yes Have you tested positive for COVID-19: No Exposed to someone with COVID-19 in past 14 days?: No Do you have a sore throat?: No Do you have a cough?: No Do you have any weakness?: No Do you have any diarrhea?: No Are you experiencing any unusual bleeding?: No Do you have any muscle aches/pain?: No Do you have any abdominal pain?: No Are you experiencing loss of taste or smell?: No Other Medical History Have you received the Flu Vaccine for this season: No Have you received the Pneumonia Vaccine: No ROS Obtained: Yes other As per HPI Physical Exam General General appearance: alert and in no apparent distress Head Head exam: atraumatic and normocephalic Eye Eye exam: Present normal appearance Neck Neck exam: Present normal inspection Chest Chest inspection: Present normal inspection and symmetric chest wall rise Respiratory Respiratory exam: Present normal lung sounds bilaterally; Absent respiratory distress Cardiovascular Cardiovascular exam: Present regular rate and normal rhythm Abdominal Exam Abdominal exam: Present soft Neurological Exam Neurological exam: Present alert and oriented X3 Psychiatric Psychiatric exam: Present normal affect and normal mood Skin Skin exam: Present warm and dry Medical Decision Making Medical Records Medical records reviewed: Yes I reviewed the patient's medical records. Screening: Per USPSTF and CDC recommendations, given the prevalence of disease in our region, it is our hospital?s policy to screen for HIV and viral Hepatitis for all patients aged 18 and over and those with ongoing risk factors. [place] Inquiry Pt receiving controlled substance: No Vital Signs: 10/26/24 19:14 10/26/24 19:31 10/26/24 20:01 Temperature 99.2 F Temperature Source Oral Pulse Rate 64 68 Pulse Rate [Apical] 70 Respiratory Rate 24 15 15 Blood Pressure 187/100 H 130/90 Blood Pressure [Right Arm] 177/78 H Blood Pressure Mean [Right Arm] 111 02 Sat by Pulse Oximetry 96 88 L 93 L Oxygen Delivery Method Nasal Cannula Oxygen Flow Rate (LPM) 2 10/26/24 21:30 10/26/24 22:00 10/26/24 22:21 Temperature 97.9 F Temperature Source Pulse Rate 71 70 65 Pulse Rate [Apical] Respiratory Rate 20 Blood Pressure 117/59 L 139/65 139/65 Blood Pressure [Right Arm] Blood Pressure Mean [Right Arm] 02 Sat by Pulse Oximetry 98 95 Oxygen Delivery Method Nasal Cannula Oxygen Flow Rate (LPM) Lab Data Lab Results 10/26/24 19:58: Urine Color Yellow, Urine Appearance Slightly cloudy, Urine pH 6.0, Ur Specific [place] 1.010, Urine Protein Negative, Urine Glucose (UA) Negative, Urine Ketones Negative, Urine Blood Trace-i, Urine Nitrate Negative, Urine Bilirubin Negative, Urine Urobilinogen 0.2, Ur Leukocyte Esterase 2+ A, Urine RBC 3-5, Urine WBC 10-20, Ur Squamous Epith Cells 5-10, Urine Bacteria 1+ 10/26/24 20:23: WBC 8.2, RBC 4.95, Hgb 16.1, Hct 46.7, MCV 94.3, MCH 32.5 H, MCHC 34.5, RDW 14.4, Plt Count 159, MPV 9.0, Neut % (Auto) 92.0 H, Lymph % (Auto) 4.3 L, [place] % (Auto) 2.6, Eos % (Auto) 0.4, Baso % (Auto) 0.5, Neut # (Auto) 7.6, Lymph # (Auto) 0.4 L, [place] # (Auto) 0.2, Eos # (Auto) 0.0, Baso # (Auto) 0.0, Total Counted 100, Neutrophils % (Manual) 94 H, Lymphocytes % (Manual) 2 L, Monocytes % (Manual) 2, Eosinophils % (Manual) 2, Platelet Estimate Normal, RBC Morphology Normal, Sodium 135 L, Potassium 3.9, Chloride 99, Carbon Dioxide 28, Anion Gap 11.9, BUN 19 H, Creatinine 0.80, Estimated Creat Clear 66, Estimated GFR 79, Est GFR ( Amer) 96, Glucose 156 H, Calcium 8.5, Total Bilirubin 0.6, AST 54 H, ALT 42, Alkaline Phosphatase 105, Total Protein 7.5, Albumin 3.9, Globulin 3.6 H, Albumin/Globulin Ratio 1.1, Lipase 62, Serum HCG, Qual Negative 10/26/24 : SARS-CoV-2 (PCR) Not detected, Influenza A Untype (PCR) Not detected, Influenza Type B (PCR) Not detected 10/26/24 20:23 10/26/24 20:23 Orders (Tests/Meds): ORDERS Category Date Time Status CT abdomen pelvis wo con Stat Cat Scan 10/26/24 21:40 Completed XR chest portable Stat Exams 10/26/24 20:28 Completed CBC w/Auto Diff [Complete Blood Count Auto Diff] Stat Lab 10/26/24 20:23 Completed CMP [Comprehensive Metabolic Panel] Stat Lab 10/26/24 20:23 Completed HCG Qualitative, Serum Stat Lab 10/26/24 20:23 Completed Lipase Stat Lab 10/26/24 20:23 Completed Rapid PCR Covid and Flu A/B Stat Lab 10/26/24 Completed Urinalysis and Microscopic Stat Lab 10/26/24 19:58 Completed Urine Culture Stat Micro 10/26/24 19:58 Completed Medical Decision Narrative: Patient with history and exam per above presenting for evaluation of abdominal pain Diagnoses considered include cystitis, pyelonephritis, diverticulitis, diverticulosis, constipation, bowel obstruction, among others ED workup and treatment included: ORDERS Category Date Time Status CT abdomen pelvis wo con Stat Cat Scan 10/26/24 21:40 Completed XR chest portable Stat Exams 10/26/24 20:28 Completed CBC w/Auto Diff [Complete Blood Count Auto Diff] Stat Lab 10/26/24 20:23 Completed CMP [Comprehensive Metabolic Panel] Stat Lab 10/26/24 20:23 Completed HCG Qualitative, Serum Stat Lab 10/26/24 20:23 Completed Lipase Stat Lab 10/26/24 20:23 Completed Rapid PCR Covid and Flu A/B Stat Lab 10/26/24 Completed Urinalysis and Microscopic Stat Lab 10/26/24 19:58 Completed Urine Culture Stat Micro 10/26/24 19:58 Completed Labs were independently interpreted by me, significant for urinalysis with hematuria, bacteriuria Imaging was independently visualized and interpreted by me, significant for no acute surgical pathology Please refer to radiology report for full details. My clinical impression at this time is most consistent with pyelonephritis I discussed my clinical impression with patient and answered all questions. At this time, the evidence for any other entities in the differential is insufficient to warrant any further testing or ED observation. This was explained to the patient. The patient was advised that persistent or worsening symptoms require further evaluation. Critical Care Critical Care Time Critical Care Time: No
[2024-10-26 19:31] VITALS: BP 187/100; PULSE 64; RESP 15; O2SAT 88
[2024-10-26 20:01] VITALS: BP 130/90; PULSE 68; RESP 15; O2SAT 93
[2024-10-26 20:06] LABS: Microscopic, Urine URINE MICROSCOPIC (MICROSCOPIC)
[2024-10-26 20:08] LABS: Bilirubin,Urine Negative (Negative); Blood, Urine TRACE-I (Negative); Color,Urine YELLOW (Yellow); Glucose,Urine (UA) Negative (Negative); Ketones,Urine Negative (Negative); Leukocyte Esterase,Urine 2+ (Negative); Nitrate,Urine Negative (Negative); Protein,Urine Negative (Negative); Urobilinogen,Urine 0.2 EU/dl (0.2)
[2024-10-26 20:10] LABS: Appearance,Urine Slightly Cloudy (Clear)
[2024-10-26 20:24] LABS: Bacteria,Urine 1+ /lpf
--- NOTE | 2024-10-26 20:28 | XR_ITS ---
PROCEDURE INFORMATION: Exam: XR Chest Exam date and time: 10/26/2024 9:14 PM Age: 39 years old Clinical indication: Pain; Other: Upper abd; Additional info: HX downs/congenital heart, n/v, upper abd pain TECHNIQUE: Imaging protocol: Radiologic exam of the chest. Views: 1 view. COMPARISON: CR XR CHEST 2V 08/22/2024 11:48 PM FINDINGS: Tubes, catheters and devices: There is a right chest implanted cardiac device. Lungs: There are patchy opacities throughout the lungs which may reflect edema. Pleural spaces: No large effusion or pneumothorax. Heart/Mediastinum: Stable cardiac and mediastinal contours. Diaphragm: There is elevation of the left hemidiaphragm. Bones/joints: No evidence of acute osseous abnormalities within the visualized portions of the thoracic spine and ribs. Osseous structures appear appropriate for patient age. The patient is status post median sternotomy. IMPRESSION: There are patchy opacities throughout the lungs which may reflect edema.
[2024-10-26 20:34] LABS: Basophils % 0.5 % (0.1-2.0); Eosinophils % 0.4 % (0.1-12.0); Hematocrit 46.7 % (37.0-47.0); Hemoglobin 16.1 g/dL (12.2-16.2); Lymphocytes # 0.4 K/mm3 (0.7-4.5); Lymphocytes % 4.3 % (10-50); Mean Corpuscular HGB Conc 34.5 g/dL (31.8-35.4); Mean Corpuscular Hemoglobin 32.5 pg (27.0-31.2); Mean Corpuscular Volume 94.3 fl (81-99); Monocytes # 0.2 K/mm3 (0.1-1.0); Monocytes % 2.6 % (1.7-9.3); Neutrophils # 7.6 K/mm3 (1.8-7.8); Platelet Count 159 K/mm3 (142-424); Red Blood Count 4.95 M/mm3 (4.20-5.40); Red Cell Distribution Width 14.4 % (11.5-17.5); White Blood Count 8.2 K/mm3 (4.8-10.8)
[2024-10-26 20:36] LABS: MANUAL DIFFERENTIAL MANUAL DIFFERENTIAL (MANUAL DIFF)
[2024-10-26 20:38] LABS: Coronavirus 19, PCR Not Detected (NotDetected); Influenza A, PCR Not Detected (NotDetected); Influenza B, PCR Not Detected (NotDetected)
[2024-10-26 20:45] LABS: HCG Qualitative, Serum Negative (Negative)
[2024-10-26 20:47] LABS: Albumin Level 3.9 g/dl (3.5-5.0); Chloride 99 mmol/L (98-107); Potassium 3.9 mmoL/L (3.5-5.1); Sodium 135 mmol/L (136-145)
[2024-10-26 20:49] LABS: Blood Urea Nitrogen 19 mg/dl (7-17); Creatinine Clearance Estimated 66 mL/min (50-200); Estimated Glomerular Filt Rate 79 ml/min (>60); GFR (African American) 96 ML/MIN (>60)
[2024-10-26 20:50] LABS: Alanine Aminotransferase 42 U/L (12-78); Albumin/Globulin Ratio 1.1 (1.1-1.8); Alkaline Phosphatase 105 U/L (38-126); Anion Gap 11.9 mEq/L (5-15); Aspartate Amino Transferase 54 U/L (14-36); Bilirubin,Total 0.6 mg/dl (0.2-1.3); Calcium 8.5 mg/dl (8.4-10.2); Carbon Dioxide 28 mmol/L (22.0-30.0); Globulin 3.6 g/dL (1.3-3.2); Glucose 156 mg/dl (74-100); Lipase 62 U/L (23-300); Total Protein,Serum 7.5 g/dl (6.3-8.2)
[2024-10-26 21:14] LABS: Eosinophils % 2 % (0-3); Lymphocytes % 2 % (10-50); Monocytes % 2 % (2-9); Neutrophils % 94 % (42-76); Platelet Estimate Normal; RBC Morphology Normal; Total Cells Counted 100
[2024-10-26 21:30] VITALS: BP 117/59; PULSE 71; O2SAT 98
--- NOTE | 2024-10-26 21:40 | CT_ITS ---
PROCEDURE INFORMATION: Exam: CT Abdomen And Pelvis Without Contrast Exam date and time: 10/26/2024 9:42 PM Age: 39 years old Clinical indication: Fever and nausea and vomiting; Abdominal pain; Additional info: Abdominal pain/n/v/fever TECHNIQUE: Imaging protocol: Computed tomography of the abdomen and pelvis without contrast. Radiation optimization: All CT scans at this facility use at least one of these dose optimization techniques: automated exposure control; mA and/or kV adjustment per patient size (includes targeted exams where dose is matched to clinical indication); or iterative reconstruction. COMPARISON: 1. CR XR CHEST PORTABLE 10/26/2024 9:[address] chest wo con 12/27/2018 1:08 PM 3. CR XR CHEST 2V 08/22/2024 11:48 PM FINDINGS: Tubes, catheters and devices: Partially visualized right chest cardiac device. Lungs: There is edema at the lung bases. Liver: Normal. Gallbladder and biliary ducts: No acute process. Pancreas: Normal. Spleen: Normal. Adrenal glands: The adrenal glands are thickened, a nonspecific finding. Kidneys and ureters: There are no soft tissue renal masses or hydronephrosis. Stomach and bowel: The stomach, small bowel, and colon are well-distended and show no evidence of wall thickening, masses, or obstruction. Appendix: No evidence of appendicitis. Intraperitoneal space: Unremarkable. Vasculature: The abdominal aorta and its major branches appear normal without evidence of aneurysm or stenosis. There are pelvic phleboliths. Lymph nodes: There are few mildly prominent lymph nodes near the pancreatic head which are nonspecific Urinary bladder: There is mild bladder wall thickening, nonspecific. Reproductive: No acute process. Bones/joints: The visualized osseous structures of the abdomen and pelvis appear normal for patient age. The patient is status post median sternotomy. Soft tissues: There is a small fat containing umbilical hernia. IMPRESSION: No acute inflammatory or obstructive process is identified. Incidental findings are described within the findings section.
[2024-10-26 22:00] VITALS: BP 139/65; PULSE 70; O2SAT 95
[2024-10-26 22:21] VITALS: BP 139/65; PULSE 65; RESP 20; TEMP 36.6; O2SAT 2
== END 2024-10-26 22:36 | disposition home or self-care (01) ==
PROVIDERS: Emergency Provider Emergency Medicine; PCP Family Medicine
DX: N12 Tubulo-interstitial nephritis, not specified as acute or chronic (principal); R10.84 Generalized abdominal pain; R50.9 Fever, unspecified; R30.0 Dysuria; R11.2 Nausea with vomiting, unspecified
CPT/HCPCS: 71045; 74176; 80053; 81001; 83690; 84703; 85007; 85025; 85027; 87086; 87636; 99284

== ENCOUNTER 2024-11-24 15:06 | Outpatient (CLI) | payer MEDICARE, OTHER, SELFPAY ==
[2024-11-24 16:10] LABS: Potassium 4.5 mmoL/L (3.5-5.1)
== END 2024-11-24 23:59 | disposition home or self-care (01) ==
LOC: LAB 15:09
PROVIDERS: PCP Family Medicine; Visit Provider Family Medicine
DX: E87.6 Hypokalemia (principal)
CPT/HCPCS: 36415; 84132

== ENCOUNTER 2024-12-09 10:42 | Outpatient (CLI) | payer MEDICARE, OTHER, SELFPAY ==
[2024-12-09 11:31] LABS: Potassium 5.4 mmoL/L (3.5-5.1)
== END 2024-12-09 23:59 | disposition home or self-care (01) ==
LOC: LAB 10:43
PROVIDERS: PCP Family Medicine; Visit Provider Family Medicine
DX: E87.6 Hypokalemia (principal)
CPT/HCPCS: 36415; 84132

== ENCOUNTER 2025-01-09 11:08 | Outpatient (CLI) | payer MEDICARE, OTHER, SELFPAY ==
--- OUTSIDE RECORDS SUMMARY | 2025-01-09 11:11 | XMS_ITS ---
Author Organization Unknown Allergies, Adverse Reactions and Alerts Date IsAllergic OnsetDate Allergen Reaction Type Severity Mike rgyCode Legacyallergictoid ReactionCode ReactionCodeSystemID 11/07 00:00 :00 1 Doxycycli ne 87890317609 11/07 00:00 :00 1 Penicilli n G Benzathin e [id number] 11/05 00:00 :00 1 Doxycycli ne [id number] 11/05 00:00 :00 1 Penicilli n G Benzathin e [id number] 10/29 00:00 :00 1 Doxycycli ne [id number] 10/29 00:00 :00 1 Penicilli n G Benzathin e [id number] 10/28 00:00 :00 1 Doxycycli ne [id number] 10/28 00:00 :00 1 Penicilli n G Benzathin e [id number]
[2025-01-09 11:48] LABS: Potassium 4.5 mmoL/L (3.5-5.1)
== END 2025-01-09 23:59 | disposition home or self-care (01) ==
LOC: LAB 11:10
PROVIDERS: PCP Family Medicine; Visit Provider Family Medicine
DX: E87.6 Hypokalemia (principal)
CPT/HCPCS: 36415; 84132

== ENCOUNTER 2025-02-02 11:45 | Outpatient (CLI) | payer MEDICARE, OTHER, SELFPAY | END 2025-02-02 23:59 | disposition home or self-care (01) | LOC: LAB 11:45 | PROVIDERS: PCP Family Medicine; Visit Provider Family Medicine | DX: E87.6 Hypokalemia (principal) | CPT/HCPCS: 36415; 84132 ==

== ENCOUNTER 2025-03-26 09:33 | Outpatient (CLI) | payer MEDICARE, OTHER, SELFPAY ==
--- OUTSIDE RECORDS SUMMARY | 2025-02-17 08:50 | XMS_ITS | Encounter Summary ---
Author Organization Healthcare Address [address] [place] [address] Care Team Providers Care Bundler Seasonal Greenery Name Role Phone Espinoza Thakur MD Primary Care Provider [phone] Encounter Details Date Type Department Care Team (Latest Contact Info) Description 02/17/2025 8:50 AM EDT - 02/17/2025 11:59 PM EDT Hospital Encounter Cardiac Imaging [address] [place] [address] Biventricular pacemaker check Discharge Disposition: Home or Self Care Social History Tobacco Use Types Packs/Day Years Used Date Smoking Tobacco: Never Passive Smoke Exposure: Never Smokeless Tobacco: Never Alcohol Use Standard Drinks/Week Comments No 0 (1 standard drink = 0.6 oz pure alcohol) Alcoholic Drinks/day: Never Drank Alcohol PHQ-2 Answer Date Recorded Patient Health Questionnaire-2 Score 0 01/26/2025 PHQ-9 Answer Date Recorded Patient Health Questionnaire-9 Score 0 01/26/2025 PHQ-2A Answer Date Recorded Depression Risk 0 07/28/2024 Comments No Sex and Gender Information Value Date Recorded Sex Assigned at Not on file Legal Sex Female 8:49 PM EDT Gender Identity Not on file Sexual Orientation Not on file documented as of this encounter Medications at Time of Discharge albuterol 108 (90 Base) MCG/ACT inhaler Inhale 2 puffs 1 (one) time each day if needed. 10/20/2020 aspirin 81 MG EC tablet Take 1 tablet (81 mg) by mouth every night. 09/17/2020 Azelastine HCl 137 MCG/SPRAY solution 07/12/2022 calcium-vitamin D 500-200 MG-UNIT tablet Take 1 tablet by mouth 1 (one) time each day. cholecalciferol (Vitamin D-3) 25 MCG (1000 UT) tablet Take 1 tablet (1,000 Units) by mouth 1 (one) time each day. furosemide (Lasix) 40 MG tablet Take 1 tablet (40 mg) by mouth 1 (one) time each day. 11/21/2019 guaiFENesin (Mucinex) 600 MG 12 hr tablet Take 2 tablets (1,200 mg) by mouth 2 (two) times a day. Do not crush, chew, or split. levothyroxine (Synthroid, Levoxyl) 125 MCG tablet Take 1 tablet (125 mcg) by mouth 1 (one) time each day before breakfast. 10/26/2012 metoprolol succinate XL (Toprol-XL) 25 MG 24 hr tabletIndications:N SVT (nonsustained ventricular tachycardia) (CMS/HCC) Take 0.5 tablets (12.5 mg) by mouth daily. 15 tablet 5 12/15/2024 montelukast (Singulair) 10 MG tablet Take 1 tablet (10 mg) by mouth every night. 07/16/2017 norethindrone (Micronor) 0.35 MG tabletIndications:E ncounter for initial prescription of contraceptive pills Take 1 tablet (0.35 mg) by mouth 1 (one) time each day. 84 tablet 3 12/26/2023 Pediatric Multiple Vit-C-FA (FLINSTONES GUMMIES OMEGA-3 DHA PO) Take 2 tablets by mouth 1 (one) time each day. warfarin (Coumadin) 1 MG tablet 11/04/2024 warfarin (Coumadin) 6 MG tablet Take 1 tablet (6 mg) by mouth 1 (one) time each day. Take as directed per After Visit Summary. 7mg on Sunday documented as of this encounter Plan of Treatment Upcoming Encounters Date Type Department Care Team (Late st Contact Info) Description 06/19/2025 9:30 AM EDT Appointment Cardiac Imaging [address] [place] [address] 06/19/2025 11:40 AM EDT Office Visit [facility] [place] [address] [facility] [place] [id number] Jordon Tidwell MD [address] [place] [address] 08/21/2025 11:40 AM EST Office Visit [facility] [address] [place] [id number] Polina Granados MD [address] [place] [address] 09/10/2025 1:00 PM EST Office Visit [facility] [place] [place] [address] [place] [address] Tanja Parsons MD [address] [place] [address] 01/25/2026 10:30 AM EDT [facility] Visit [facility] [address] [place] [address] Emi Orozco PA [address] [place] [address] documented as of this encounter Procedures Procedure Name Priority Date/Time Associated Diagnosis Comments CARDIAC DEVICE CHECK - REMOTE - PACEMAKER Routine 02/17/2025 12:14 PM EDT Biventricular pacemaker check documented in this encounter Results * CARDIAC DEVICE CHECK - REMOTE - PACEMAKER (02/17/2025 12:14 PM EDT) Anatomical Region Laterality Modality Other Narrative 02/17/2025 12:46 PM EDT [facility] Remote CIED Report Name: Sharona Sanchez Date: 02/17/2025 : 1985 Age: 39 y.o. Reporting period: Reporting period is the last 91 days, with at least 30 days of remote monitoring. Interim reports, if any, reviewed and addressed previously; see remote alert entries for more details. Most recent report, dated 02/17/2025, analysis and summary as follows: Device: Kat BIV Pacemaker Permanent Programming Mode : VVIR LRL: 70 bpm MTR: bpm Lead Measurements: Available measurements within normal limits. See attached report. Pacing Percentage: BIV 99 % Battery: Service time remainin.6-5.0 years Presenting rhythm: AF with BIV pacing. Evaluation: Demonstrates appropriate sensing: Yes Demonstrates pacing capture: Yes Arrhythmias: PAF, on Warfarin Summary: CIED functioning as expected, with given programming and data. See Media for full report. Suellen Smith Debora MCCORMICK CV IMPLANTABLE CARDIAC DEV ICE PROCEDURES Final Result documented in this encounter Visit Diagnoses Diagnosis Biventricular pacemaker check documented in this encounter Additional Health Concerns Assessment Noted Time PHQ-9 Depression Total Score: 0 01/27/20 25 9:00 AM EDT A fall risk assessment has been complete d for the patient 01/26/2025 9:00 AM EDT A Body Mass Index follow-up plan has been documented for the patient 01/26/2025 9:56 AM EDT documented as of this encounter Care Teams Bundler Seasonal Greenery Relationship Specialty Start Date End Date Espinoza Thakur MD [address] [place] [address] [address] [place] [id number] PCP - General 02/11/21 documented as of this encounter
--- OUTSIDE RECORDS SUMMARY | 2025-02-19 11:40 | XMS_ITS | Encounter Summary ---
Author Organization Healthcare Address [address] [facility] [place] [address] Care Team Providers Care Equipment Oiler Name Role Phone Espinoza Thakur MD Primary Care Provider [phone] Reason for Referral * Consultation (Routine) - Authorized Specialty Diagnoses / Procedures Referred By Neema burger Referred To Contact Diagnoses KALEIGH (obstructive sleep apnea) Polina Granados MD [address] [address] Phone: tel: fax: Referral ID Status Reason Start Date Expiration Date V isits Requested Visits Authorized [id number] Authorized 02/19/2025 08/21/2026 1 1 Reason for Visit * Reason Comments Follow-up Encounter Details Date Type Department Care Team (Late st Contact Info) Description 02/19/2025 11:40 AM EDT Office Visit [facility] [address] [place] [address] Polina Granados MD [address] [address] KALEIGH (obstructive sleep apnea) (Primary [...] filter, and tubing supplies every 3-6 months. ([email or web address].org/patients/patient-resources/resources/lli-libi-hvl-keith ronaldo.pdf) -Do NOT drive, operate machinery, or participate in potentially hazardous activities if sleepy -Use caution with opioid pain medication, alcohol, other HOT SEALING MACHINE OPERATOR depressants (and to notify their prescriber of [...] history of CHB s/p cardiac resynchronization therapy (ADMISSIONS RN) pacemaker, trisomy 21, AV canal repair, ostium secundum defect repair s/p mechanical MVR tricuspid annuloplasty, and subsequent complete heart block. She is chronically anticoagulated due to chronic atrial arrhythmiasand MVR., KALEIGH on CPAP. PSG in 2018 at [facility] [place] showed KALEIGH with AHI 56.2, RDI 62.8 [...] supplemental oxygen 2 LPM, as per the cube machine tender, during day on exertion and night [...] battery life of cardiac resynchronization therapy pacemaker (ADMISSIONS RN-P) Pacemaker complications, initial encounter H/O tricuspid valve annuloplasty Left foot pain PAST SURGICAL HISTORY: Past Surgical History: Procedure Laterality Date INSERT / REPLACE / REMOVE PACEMAKER N/A Permanent Pacemaker P[employer] from [employer] MITRAL VALVE REPLACEMENT OTHER SURGICAL HISTORY N/A Tricuspid Valve Annuloplasty from [employer] OTHER SURGICAL HISTORY N/A History of cardiac pacemaker from [employer] TONSILECTOMY, ADENOIDECTOMY, BILATERAL MYRINGOTOMY AND TUBES N/A Tonsillectomy With Adenoidectomy from [employer] MEDICATIONS Outpatient Encounter Medications as of 02/19/2025 [...] A Atrioventricular Canal, s/p AVC repair (02/02/87, [facility], [place]), s/p 27mm [employer] left AVV [...] Trisomy 21, CHB s/p cardiac resynchronization therapy (ADMISSIONS RN) pacemaker presenting for obstructive sleep apnea 1. Obstructive Sleep Apnea on Auto CPAP Currently on CPAP 10 cm of water with supplemental oxygen at 2 LPM Device AHI 2.8 Defer plan for oxygen supplementation to cube machine tender-may consider 24 hour oximetry to determine if oxygen supplementation could be stopped. Nightly PAP usage advised. Education- provided in person and/or in check-out in AVS ([facility] in [facility]) Sleep Clinic Instructions --pursue good sleep hygiene [...] caution with opioid pain medication, alcohol, other HOT SEALING MACHINE OPERATOR depressants (and to notify their prescriber of [...] AM EDT Appointment Cardiac Imaging [address] [place] [phone] 06/19/2025 11:40 AM EDT Office Visit [facility] [address] [place] [address] Jordon Tidwell MD [address] [place] [address] 08/21/2025 11:40 AM EST Office Visit [facility] Sleep Disorder Center [address] 4th [place] [address] Polina Granados MD [address] [place] [address] 09/10/2025 1:00 PM EST Office Visit [facility] [address] [place] [phone] Tanja Parsons MD [address] [place] [address] 01/25/2026 10:30 AM EDT Office Visit [facility] [address], [address] [place] [address] Emi Orozco PA [address] [place] [phone] Scheduled Referrals Name Type Priority Associated Diagnoses [...] documented as of this encounter Care Teams Equipment Oiler Relationship Specialty Start Date End Date Espinoza Thakur MD [address] [place] [address] [address] [place] [phone] PCP - General 02/11/21 documented as of this encounter
--- OUTSIDE RECORDS SUMMARY | 2025-03-12 12:40 | XMS_ITS | Encounter Summary ---
Author Organization [facility] Address [address] [id number] Care Team Providers Care Seismograph Observer Name Role Phone Espinoza Thakur MD Primary Care Provider [phone] Reason for Referral * Consultation (Routine) - Authorized Specialty Diagnoses / Procedures Referred By Neema burger Referred To Contact Diagnoses Atrial fibrillation, unspecified type (CMS/HCC) Jenny Tolentino PA [address] [place] [address] Phone: tel: fax: Referral ID Status Reason Start Date Expiration Date V isits Requested Visits Authorized [id number] Authorized 03/12/2025 09/11/2026 1 1 Reason for Visit * Reason Comments Device Check Encounter Details Date Type Department Care Team ([facility] st Contact Info) Description 03/12/2025 12:40 PM EDT Office Visit [facility] [address] [facility] [place] [address] Tanja Parsons MD [address] [place] [address] Atrial fibrillation, unspecified type (CMS/HCC) (Primary Dx); Pacemaker complications, initial encounter Social History Tobacco Use Types Packs/Day Years Used Date Smoking Tobacco: Never Passive Smoke Exposure: Never Smokeless Tobacco: Never Alcohol Use Standard Drinks/Week Comments No 0 (1 standard drink = 0.6 oz pure alcohol) Alcoholic Drinks/day: Never Drank Alcohol PHQ-2 Answer Date Recorded Patient Health Questionnaire-2 Score 0 03/12/2025 PHQ-9 Answer Date Recorded Patient Health Questionnaire-9 Score 0 03/12/2025 PHQ-2A Answer Date Recorded Depression Risk 0 07/28/2024 Comments No Sex and Gender Information Value Date Recorded Sex Assigned at Not on file Legal Sex Female 8:49 PM EDT Gender Identity Not on file Sexual Orientation Not on file documented as of this encounter Last Filed Vital Signs Vital Sign Reading Time Taken Comments Blood Pressure 104/72 03/12/2025 12:37 PM EDT Pulse 70 03/12/2025 12:37 PM EDT Temperature - - Respiratory Rate - - Oxygen Saturation 93% 03/12/2025 12:37 PM EDT Inhaled Oxygen Concentration - - Weight 100 kg (221 lb 1.9 oz) 03/12/2025 12:37 P M EDT Height 152.4 cm (5') 03/12/2025 12:37 PM EDT Body Mass Index 43.18 03/12/2025 12:37 PM EDT documented in this encounter Functional Status * Over the past 2 weeks, how often have you been bothered by any of the following problems? Question Answer Date of Assessment Author Little interest or pleasure in doing things Not at all 03/12/2025 12:39 PM Deshaun Ellsworth Feeling down, depressed, or hopeless Not at all 03/12/2025 12:39 PM Deshaun Ellsworth Patient Health Questionnaire-2 Score 0 03/12/2025 12:39 PM Jodie Ellsworth * Question Answer Date of Assessment Author Trouble falling or staying asleep, or sleeping too much Not at all 03/12/2025 12:39 PM Tayler Ellsworth Feeling tired or having little energy Not at all 03/12/2025 12:39 PM Deshaun Ellsworth Poor appetite or overeating Not at all 03/12/2025 12 :39 PM Tayler Ellsworth Feeling bad about yourself - or that you are a failure or have let yourself or your family down Not at all 03/12/2025 12:39 PM Deshaun Ellsworth Trouble concentrating on things, such as reading the newspaper or watching television Not at all 03/12/2025 12:39 PM Deshaun Ellsworth Moving or speaking so slowly that other people could have noticed? Or the opposite - being so fidgety or restless that you have been moving around a lot more than usual. Not at all 03/12/2025 12:39 PM Tayler Washington Thoughts that you would be better off or hurting yourself in some way Not at all 03/12/2025 12:39 PM Darrian Ellsworth Patient Health Questionnaire-9 Score 0 03/12/2025 12:39 PM Jodie Ellsworth * If you checked off any problems on this questionnaire so far, Question Answer Date of Assessment Author How difficult have these problems made it for you to do your work, take care of things at home, or get along with other people? Not difficult at all 03/12/2025 12:39 PM Tayler Ellsworth documented as of this encounter Miscellaneous Notes * Progress Notes - Jenny Tolentino PA - 03/12/2025 12:40 PM EDT [facility] [place] [facility] Follow Up Note Date of Visit 03/12/25 Patient Sharona Sanchez [address] [place] [address] [place] [address] PCP Espinoza Thakur MD Chief Complaint SUBJECTIVE History of Present Illness Sharona Sanchez is a 39 y.o. female who presents today in the electrophysiology clinic for follow up. She is followed for a congenital history of , trisomy 21, AV canal repair, ostium secundumdefect repair s/p mechanical MVR tricuspid annuloplasty, and subsequent complete heart block now s/p St. Elijah HARDWARE INSTALLATION COORDINATOR-P. She is chronically anticoagulated due to chronic atrial arrhythmias and MVR., KALEIGH on CPAP. She also follows w Dr. Tidwell. Her family denies any recent cardiac issues. They traveled to [place] earlier this year and the altitude was an issue for Sharona and she became hypoxic, so the trip was cut short. Other than that,she has done overall well. She is in chronic afib and denies any palpitations. Problem List[1] Current Medications Current Medications[2] Allergies Allergies[3] The following portions of the chart were reviewed this encounter and updated as appropriate: Review of Systems 14 Point ROS reviewed and is otherwise negative except as per HPI. OBJECTIVE Vitals Visit Vitals BP 104/72 Pulse 70 Ht 1.524 m (5') Wt 100 kg (221 lb 1.9 oz) SpO2 93% BMI 43.18 kg/m?? Physical Exam Physical Exam Vitals reviewed. Constitutional: Appearance: Normal appearance. She is obese. HENT: Head: Normocephalic and atraumatic. Nose: Nose normal. Eyes: Extraocular Movements: Extraocular movements intact. Pupils: Pupils are equal, round, and reactive to light. Cardiovascular: Rate and Rhythm: Normal rate and regular rhythm. Pulses: Normal pulses. Heart sounds: Normal heart sounds. Pulmonary: Effort: Pulmonary effort is normal. Breath sounds: Normal breath sounds. Abdominal: Palpations: Abdomen is soft. Musculoskeletal: Cervical back: Normal range of motion and neck supple. Skin: General: Skin is warm and dry. Neurological: General: No focal deficit present. Mental Status: She is alert. Psychiatric: Mood and Affect: Mood normal. Diagnostics Device Interrogation Overview Felt Hooker: Kat/St. Elijah Device type: multilead chamber pacemaker Device mode: VVIR Upper rate: Lower rate: 70 Battery Voltage: Volts Longevity: 4 years RV % pacin % Pacin.875 Volts @ 0.5 ms Sensing: mV Impedance: 430 Ohms LV % pacin % Pacin.0 Volts @ 0.5 ms Sensing: none mV Impedance: 900 Ohms Episodes Chronic afib I personally interpreted the results of this device interrogation. Procedures Echo, Adult Congenital Transthoracic (TTE) Complete Result Date: 06/13/2024 History: Trisomy 21, Type A Atrioventricular Canal, s/p AVC repair [facility]02/02/87[facility] s/p 27mm St. Elijah left AVV replacement, right AVV annuloplasty ring (01/20/11), Complete Heart Block with pacemaker. Atrioventricular Valve: There are separate right and left AV valves. The right AV valve: Thereis an annuloplasty ring around the right AV [...] and/or 2D volumes, the left ventricle is mildlydilated in size. There is normal left ventricular myocardial thickness and mass. The left ventricular systolic function is mildly reduced. The LVEF is visually estimated at 40 - 50%. Compared to the most recently available prior study, and allowing for differences in image quality and technique, there is no significant interval change noted. Lab Review Lab Results Component Value Date/Time WBC 5.64 05/18/2021 0516 WBC 5.34 05/17/2021 1156 WBC 5.94 05/03/2021 1156 RBC 4.26 05/18/2021 0516 RBC 4.37 05/17/2021 1156 RBC 4.58 05/03/2021 1156 HGB 13.9 05/18/2021 0516 HGB 14.5 05/17/2021 1156 HGB 14.8 05/03/2021 1156 HCT 41.1 05/18/2021 0516 HCT 42.6 05/17/2021 1156 HCT 43.4 05/03/2021 1156 Lab Results Component Value Date/Time BUN 10 05/18/2021 0516 BUN 12 05/17/2021 1156 BUN 12 05/03/2021 1228 NA 135 (L) 05/18/2021 0516 NA 137 05/17/2021 1156 NA 138 05/03/2021 1228 K 4.6 05/18/2021 0516 K 4.6 05/17/2021 1156 K 4.1 05/03/2021 1228 CL 105 05/18/2021 0516 CL 104 05/17/2021 1156 CL 104 05/03/2021 1228 ASSESSMENT AND PLAN Visit Diagnoses and Orders 1. Atrial fibrillation, unspecified type (CMS/HCC) Follow Up Cardiology 2. Pacemaker complications, initial encounter Discussion Summary Chronic AF: Anticoagulated and monitored by Dr. Thakur in [place]. Programmed VVIR [facility] Elijah HARDWARE INSTALLATION COORDINATOR-P: remotely monitored. Normal device function. -pacemaker dependency -On anticoagulation Congenital heart: Echo from 06/24 shows stable gradients across mechanical valve. -Followed by Dr. Tidwell A total time of 30 minutes was spent by addressing the current illness, reviewing records (prior imaging, lab work, etc), and formulating a plan. The patient is agreeable to the plan and all pertinent questions were answered. JODY Barrientos [1] Patient Active Problem List Diagnosis Acute diastolic heart failure secondary to hypertrophic obstructive cardiomyopathy (CMS/HCC) Allergic rhinitis Apnea, sleep Atrial fibrillation (CMS/HCC) Atrial flutter (CMS/HCC) Atrioventricular canal Status post mitral valve replacement Presence of cardiac pacemaker Obesity Hypothyroidism Down syndrome Complete heart block, post-surgical (CMS/HCC) CHF (congestive heart failure) (CMS/HCC) End of battery life of cardiac resynchronization therapy pacemaker (HARDWARE INSTALLATION COORDINATOR-P) Pacemaker complications, initial encounter H/O tricuspid valve annuloplasty Left foot pain [2] Current Outpatient Medications: albuterol 108 (90 Base) MCG/ACT inhaler, Inhale 2 puffs 1 (one) time each day if needed., Disp: , Rfl: aspirin 81 MG EC tablet, Take 1 tablet (81 mg) by mouth every night., Disp: , Rfl: Azelastine HCl 137 MCG/SPRAY solution, , Disp: , Rfl: calcium-vitamin D 500-200 MG-UNIT tablet, Take 1 tablet by mouth 1 (one) time each day., Disp: , Rfl: cholecalciferol (Vitamin D-3) 25 MCG (1000 UT) tablet, Take 1 tablet (1,000 Units) by mouth 1 (one)time each day., Disp: , Rfl: furosemide (Lasix) 40 MG tablet, Take 1 tablet (40 mg) by mouth 1 (one) time each day., Disp: , Rfl: guaiFENesin (Mucinex) 600 MG 12 hr tablet, Take 2 tablets (1,200 mg) by mouth 2 (two) times a day. Do not crush, chew, or split., Disp: , Rfl: levothyroxine (Synthroid, Levoxyl) 125 MCG tablet, Take 1 tablet (125 mcg) by mouth 1 (one) time each day before breakfast., Disp: , Rfl: metoprolol succinate XL (Toprol-XL) 25 MG 24 hr tablet, Take 0.5 tablets (12.5 mg) by mouth daily.,Disp: 15 tablet, Rfl: 5 montelukast (Singulair) 10 MG tablet, Take 1 tablet (10 mg) by mouth every night., Disp: , Rfl: norethindrone (Micronor) 0.35 MG tablet, Take 1 tablet (0.35 mg) by mouth 1 (one) time each day., Disp: 84 tablet, Rfl: 3 Pediatric Multiple Vit-C-FA (FLINSTONES GUMMIES OMEGA-3 DHA PO), Take 2 tablets by mouth 1 (one) time each day., Disp: , Rfl: warfarin (Coumadin) 1 MG tablet, , Disp: , Rfl: warfarin (Coumadin) 6 MG tablet, Take 1 tablet (6 mg) by mouth 1 (one) time each day. Take as directed per After Visit Summary. 7mg on Sunday, Disp: , Rfl: [3] Allergies Allergen Reactions Doxycycline Unknown - Patient states they do not know rxn details documented in this encounter Plan of Treatment Upcoming Encounters Date Type Department Care Team (Late st Contact Info) Description 06/19/2025 9:30 AM EDT Appointment Cardiac Imaging [address] [place] [phone] 06/19/2025 11:40 AM EDT [facility] [address] [facility] [place] [address] Jordon Tidwell MD [address] [place] [address] 08/21/2025 11:40 AM EST Office Visit [facility] Sleep Disorder Center [address] [place] [address] Polina Granados MD [address] [place] [address] 09/10/2025 1:00 PM EST Office Visit [facility] [address] [facility] [place] [phone] Tanja Parsons MD [address] [place] [address] 01/25/2026 10:30 AM EDT [facility] [address] [place] [address] Emi Orozco PA [address] [place] [address] Scheduled Referrals Name Type Priority Associated Diagnoses Order Schedule Follow Up Cardiology Outpatient Referral Routine Atrial fibrillation, unspecified type (CMS/HCC) 1 Occurrences starting 03/12/2025 until 09/11/2026 documented as of this encounter Visit Diagnoses Diagnosis Atrial fibrillation, unspecified type (CMS/HCC)- Primary Pacemaker complications, initial encounter documented in this encounter Additional Health Concerns Assessment Noted Time PHQ-9 Depression Total Score: 0 03/12/20 25 12:39 PM EDT A fall risk assessment has been complete d for the patient 03/12/2025 12:39 PM EDT A Body Mass Index follow-up plan has been documented for the patient 03/12/2025 1:11 PM EDT documented as of this encounter Care Teams Seismograph Observer Relationship Specialty Start Date End Date Espinoza Thakur MD [address] [place] [address] [address] [place] [address] PCP - General 02/11/21 documented as of this encounter
--- OUTSIDE RECORDS SUMMARY | 2025-03-26 09:37 | XMS_ITS | Clinical Summary ---
Author Organization Healthcare Address [address] [id number] Care Team Providers Care Industrial Economics Teacher Name Role Phone Espinoza Thakur MD Primary Care Provider [phone] Allergies Active Allergy Reactions Criticality Noted Date Comments Doxycycline Unknown - Patient st ates they do not know rxn details Low 04/10/2018 Medications montelukast (Singulair) 10 MG tablet Take 1 tablet (10 mg) by mouth every night. 7 Active levothyroxine (Synthroid, Levoxyl) 125 MCG tablet Take 1 tablet (125 mcg) by mouth 1 (one) time each day before breakfast. 3 Active furosemide (Lasix) 40 MG tablet Take 1 tablet (40 mg) by mouth 1 (one) time each day. 0 Active aspirin 81 MG EC tablet Take 1 tablet (81 mg) by mouth every night. 0 Active albuterol 108 (90 Base) MCG/ACT inhaler Inhale 2 puffs 1 (one) time each day if needed. 1 Active warfarin (Coumadin) 6 MG tablet Take 1 tablet (6 mg) by mouth 1 (one) time each day. Take as directed per After Visit Summary. 7mg on Sunday Active Pediatric Multiple Vit-C-FA (FLINSTONES GUMMIES OMEGA-3 DHA PO) Take 2 tablets by mouth 1 (one) time each day. Active cholecalciferol (Vitamin D-3) 25 MCG (1000 UT) tablet Take 1 tablet (1,000 Units) by mouth 1 (one) time each day. Active calcium-vitamin D 500-200 MG-UNIT tablet Take 1 tablet by mouth 1 (one) time each day. Active Azelastine HCl 137 MCG/SPRAY solution 2 Active guaiFENesin (Mucinex) 600 MG 12 hr tablet Take 2 tablets (1,200 mg) by mouth 2 (two) times a day. Do not crush, chew, or split. Active norethindrone (Micronor) 0.35 MG tabletIndications: Encounter for initial prescription of contraceptive pills Take 1 tablet (0.35 mg) by mouth 1 (one) time each day. 84 tablet 3 4 Active metoprolol succinate XL (Toprol-XL) 25 MG 24 hr tabletIndications: NSVT (nonsustained ventricular tachycardia) (CMS/HCC) Take 0.5 tablets (12.5 mg) by mouth daily. 15 tablet 5 5 06/13/20 25 Active warfarin (Coumadin) 1 MG tablet 5 Active Active Problems Problem Noted Date Diagnosed Date Left foot pain 02/19/2024 H/O tricuspid valve annuloplasty 08/29/2023 Pacemaker complications, initial encounter 05/17 End of battery life of cardi ac resynchronization therapy pacemaker (BARREL TESTER-P) 04/22/2021 Overview (04/22/2021): Added automatically from request for surgery [id number] Hypothyroidism 12/09/2020 Status post mitral valve replacement 09/17/2020 Allergic rhinitis 06/24/2020 Acute diastolic heart failur e secondary to hypertrophic obstructive cardiomyopathy 11/21/2019 Obesity 11/21/2019 Down syndrome 02/27/2019 CHF (congestive heart failure) 02/25/2019 Apnea, sleep 12/17/2018 Complete heart block, post-surgical 02/21/2016 Atrial flutter 08/13/2014 Presence of cardiac pacemaker 08/13/2013 Atrial fibrillation 02/18/2013 Atrioventricular canal 12/16/2012 Resolved Problems Problem Noted Date Diagnosed Date Resolved Date Implantable defibrillator reprogramming/check 04/22/20 21 05/03/2021 Overview (04/22/2021): Added automatically from request for surgery [id number] Weight loss counseling, encounter for 12/09/2020 05/03/2021 Weight gain 12/09/2020 05/03/2021 Obesity, Class III, BMI 40-4 9.9 (morbid obesity) 12/09/2020 05/03/2021 Transfusion history 02/27/2019 05/03/20 Abnormal CXR 12/17/2018 05/03/2021 Hypoxemia 02/18/2013 05/03/2021 Encounters Date Type Department Care Team Description 03/12/2025 12:40 PM EDT Office Visit [facility] [address] [place] [address] Tanja Parsons MD Atrial fibrillation, unspecified type (CMS/HCC) (Primary Dx); Pacemaker complications, initial encounter 03/12/2025 Travel 02/19/2025 11:40 AM EDT Office Visit [facility] [address] [facility] [place] [address] Polina Granados MD KALEIGH (obstructive sleep apnea) (Primary Dx) 02/19/2025 Travel 02/17/2025 8:50 AM EDT - 02/17/2025 11:59 PM EDT Hospital Encounter Cardiac Imaging [address] [place] [address] Biventricular pacemaker check Discharge Disposition: Home or Self Care 02/17/2025 Travel 01/26/2025 9:00 AM EDT [facility] Visit [facility] [address]nd [place] [address] Emi Orozco PA Hypoxia (Primary Dx); Obstructive sleep apnea syndrome; Class 3 severe obesity without serious comorbidity with body mass index (BMI) of 45.0 to 49.9 in adult, unspecified obesity type 01/26/2025 Travel 01/06/2025 Telephone Cardiac Imaging [address] [place] [address] Sophie Mccormack from Last 3 Months Immunizations Immunization Administration Dates Next Due Hep A, Adult 09/11/2018 Influenza, seasonal, injectable, preservative fr ee 06/25/2024 [employer] COVID-19 Vaccine (Purple Cap) 12 + 11/25/2020,11/03/2020 Family History Medical History Relation Name Comments Diabetes Brother Mental illness Brother Heart attack Father Hypercholesterolemia Mother Hypertension Mother Thyroid disease Mother Relation Name Status Comments Brother Father Mother Social History Tobacco Use Types Packs/Day Years Used Date Smoking Tobacco: Never Passive Smoke Exposure: Never Smokeless Tobacco: Never Tobacco Cessation:Counseling Given: Not Answered Alcohol Use Standard Drinks/Week Comments No 0 [...] on file Sexual Orientation Not on file Last Filed Vital Signs Vital Sign Reading Time Taken Comments Blood Pressure 104/72 03/12/2025 12:37 PM EDT Pulse 70 03/12/2025 12:37 PM EDT Temperature 36.8 C (98.3 F) 01/26/2025 8:57 AM EDT Respiratory Rate 14 01/26/2025 8:57 AM EDT Oxygen Saturation 93% 03/12/2025 12:37 PM EDT Inhaled Oxygen Concentration - - Weight 100 kg (221 lb 1.9 oz) 03/12/2025 12:37 P M EDT Height 152.4 cm (5') 03/12/2025 12:37 PM EDT Body Mass Index 43.18 03/12/2025 12:37 PM EDT Plan of Treatment Upcoming Encounters Date Type Department Care Team (Late st Contact Info) Description 06/19/2025 9:30 AM EDT Appointment Cardiac Imaging [address] [place] [address] 06/19/2025 11:40 AM EDT Office Visit [facility] [address] [facility] [place] [address] Jordon Tidwell MD [address] [place] [address] 08/21/2025 11:40 AM EST Office Visit [facility] [address], 4th [place] [address] Polina Granados MD [address] [place] [address] 09/10/2025 1:00 PM EST Office Visit [facility] [address] [place] [address] Tanja Parsons MD [address] [place] [address] 01/25/2026 10:30 AM EDT Office Visit [facility] [address], [address] [place] [address] Emi Orozco PA [address] [place] [address] Health Maintenance Due Date Last Done Comments [facility]-HIV Screening 1985 [facility]-Hepatitis C Screening 1985 [facility]-Medicare Annual Wellness (AWV) 1985 [facility]-/Child/Adol SDOH Screenings 1983 [facility]-Varicella Vaccines (1 of 2 - 13+ 2-dose series) 1996 HPV Vaccines (1 - 3-dose series) 1998 [facility]- SDOH Screenings 2001 [facility]-Adult SDOH Screenings 2001 [facility]-DTaP,Tdap,and Td Vaccines (1 - Tdap) 2002 [facility]-Hepatitis B Vaccines (1 of 3 - 19+ 3-dose series) 2002 [facility]-Pap Smear 2004 [facility]-Cervical Cancer Screening 2013 [facility]-HPV/Cotest 2013 [id number] Vaccine ( season) 2024 06/01/2022, 07/28/2021, 11/25/2020, Additional history exists [facility]-Depression Screening 03/12/2026 025, 03/12/2025, 07/28/2024 [facility]-Zoster Vaccines (1 of 2) 2033 [facility]-Hepatitis A Vaccines Aged Out 09/11/2018 No longer eligible based on patient's age to complete this topic [facility]-Influenza Vaccine Completed 06/25/2024 [facility]-Obesity Intervention Completed 025, 02/19/2025, 01/26/2025, Additional history exists [facility]-HIB Vaccines Aged Out No longer e ligible based on patient's age to complete this topic [facility]-IPV Vaccines Aged Out No longer e ligible based on patient's age to complete this topic [facility]-Pneumococcal Vaccine: Pediatrics (0 to 5 Years) and At-Risk Patients (6 to 49 Years) Aged Out No longer eligible based on patient's age to complete this topic [facility]-Rotavirus Vaccines Aged Out No lo nger eligible based on patient's age to complete this topic Medical Devices Implanted Type Area Shape Carver Device Identifier Shelf Expiration Date Model / Serial / Lot 1158t Quickflex Xl [id number] Lead 1158T QUICKFLEX XL / [id number] / [id number] Tendril Sts [id number] Lead 2088TC TEND RIL STS / [id number] / [id number] Tendril Sts [id number] Lead 2088TC TEND RIL STS / [id number] / Pacemaker Allure Bi Vent - [id number] Implanted:Qty: 1 on 05/03/2021 by Tanja Parsons MD at [facility] [id number] 05/31/2021 [id number] / [id number] / [id number] Procedures Procedure Name Priority Date/Time Associated Diagnosis Comments CARDIAC DEVICE CHECK - REMOTE - PACEMAKER Routine 02/17/2025 12:14 PM EDT Biventricular pacemaker check from Last 3 Months Results * CARDIAC DEVICE CHECK - REMOTE - PACEMAKER (02/17/2025 12:14 PM EDT) Anatomical Region Laterality Modality Other Narrative 02/17/2025 12:46 PM EDT [facility] - Device [facility] Remote CIED Report Name: Sharonamoo Kinney Daniel Date: 02/17/2025 : 1985 Age: 39 y.o. [...] and data. See Media for full report. us Suellen Smith Debora MCCORMICK CV IMPLANTABLE CARDIAC DEV ICE PROCEDURES Final Result from Last 3 Months Insurance MEDICARE VIA [facility] Advance Directives * Full Code (Latest Code Status on File) Date Activated Date Inactivated Comments 05/17/2021 5:32 PM 05/18/2021 4:30 PM Question Answer Comments Patient has decision-making capacity? Yes Care Teams Industrial Economics Teacher Relationship Specialty Start Date End Date Espinoza Thakur MD [address] [place] [address] #1 [address]1 [place] [address] PCP - General 02/11/21
--- OUTSIDE RECORDS SUMMARY | 2025-03-26 09:38 | XMS_ITS | Encounter Summary ---
Author Organization Healthcare Address [address] [place] [address] Care Team Providers Care Photolithographer Name Role Phone Espinoza Thakur MD Primary Care Provider [phone] Encounter Details Date Type Department Care Team (Latest Contact Info) Description 01/26/2025 Travel Social History Tobacco Use Types Packs/Day Years [...] on file documented as of this encounter Functional Status * Over the past 2 weeks, how often have you been bothered by any of the following problems? Question Answer Date of Assessment Author Little interest or pleasure in doing things Not at all 01/26/2025 9:00 AM EDT Lesly Tabor Feeling down, depressed, or hopeless Not at all 01/26/2025 9:00 AM EDT Lesly Tabor Patient Health Questionnaire -2 Score 0 01/26/2025 9:00 AM EDT Lesly Tabor * Question Answer Date of Assessment Author Trouble falling or staying asleep, or sleeping too much Not at all 01/26/2025 9:00 AM EDT Lesly Tabor Feeling tired or having ab le energy Not at all 01/26/2025 9:00 AM EDT Lesly Tabor Poor appetite or overeating Not at all 01/26/2025 9: 00 AM EDT Lesly Tabor Feeling bad about yourself - or that you are a failure or have let yourself or your family down Not at all 01/26/2025 9:00 AM EDT Lesly Tabor Trouble concentrating on things, such as reading the newspaper or watching television Not at all 01/26/2025 9:00 AM EDT Lesly Tabor Moving or speaking so slowly that other people could have noticed? Or the opposite - being so fidgety or restless that you have been moving around a lot more than usual. Not at all 01/26/2025 9:00 AM EDT Lesly Anton Thoughts that you would be better off or hurting yourself in some way Not at all 01/26/2025 9:00 AM EDT Bryant Tabor Patient Health Questionnaire -9 Score 0 01/26/2025 9:00 AM EDT Lesly Tabor * If you checked off any problems on this questionnaire so far, Question Answer Date of Assessment Author How difficult have these problems made it for you to do your work, take care of things at home, or get along with other people? Not difficult at all 01/26/2025 9:00 AM EDT Bryant Tabor documented as of this encounter Plan of Treatment Upcoming Encounters Date Type Department Care Team (Late st Contact Info) Description 06/19/2025 9:30 AM EDT Appointment Cardiac Imaging [address] [place] [phone] 06/19/2025 11:40 AM EDT Office Visit [facility] [address] [facility] [place] [address] Jordon Tidwell MD [address] [place] [address] 08/21/2025 11:40 AM EST Office Visit [facility] Sleep Disorder Center [address], [address]th [place] [address] Polina Granados MD [address] [place] [address] 09/10/2025 1:00 PM EST Office Visit [facility] [address] [place] [address] Tanja Parsons MD [address] [place] [address] 01/25/2026 10:30 AM EDT Office Visit [facility] [address], [address] [place] [address] Emi Orozco PA [address] [place] [address] documented as of this encounter Visit Diagnoses Not on filedocumented in this encounter Additional Health Concerns Assessment Noted Time PHQ-9 Depression Total Score: 0 01/27/20 9:00 AM EDT A fall risk assessment has been complete d for the patient 01/26/2025 9:00 AM EDT A Body Mass Index follow-up plan has been documented for the patient 01/26/2025 9:56 AM EDT documented as of this encounter Care Teams Photolithographer Relationship Specialty Start Date End Date Espinoza Thakur MD [address] [place] [address] #1 [address] [place] [address] PCP - General 02/11/21 documented as of this encounter
--- OUTSIDE RECORDS SUMMARY | 2025-03-26 09:38 | XMS_ITS | Encounter Summary ---
Author Organization Healthcare Address [address] [place] [address] Care Team Providers Care Welfare Specialist Name Role Phone Espinoza Thakur MD Primary Care Provider [phone] Encounter Details Date Type Department Care Team (Latest Contact Info) Description 03/12/2025 Travel Social History Tobacco Use Types Packs/Day [...] hopeless Not at all 03/12/2025 12:39 PM LAURIT Deshaun Valle Patient Health Questionnaire-2 Score 0 03/12/2025 12:39 [...] Tayler Ellsworth documented as of this encounter Plan of Treatment Upcoming Encounters Date Type Department Care Team (Late st Contact Info) Description 06/19/2025 9:30 AM EDT Appointment Cardiac Imaging [address] [place] [address] 06/19/2025 11:40 AM EDT Office Visit [facility] [address] [facility] [place] [address] Jordon Tidwell MD [address] [place] [address] 08/21/2025 11:40 AM EST Office Visit [facility] Sleep Disorder Center [address], [address]th [place] [address] Polina Granados MD [address] [place] [address] 09/10/2025 1:00 PM EST Office Visit [facility] [address] [place] [address] Tanja Parsons MD [address] [place] [address] 01/25/2026 10:30 AM EDT Office Visit [facility] [address], [address] [place] [address] Emi Orozco PA [address] [place] [address] documented as of this encounter [...] documented as of this encounter Care Teams Welfare Specialist Relationship Specialty Start Date End Date Espinoza Thakur MD [address] [place] [address] #1 [address]1 [place] [address] PCP - General 02/11/21 documented as of this encounter
--- OUTSIDE RECORDS SUMMARY | 2025-03-26 09:38 | XMS_ITS | Encounter Summary ---
Author Organization Healthcare Address [address] [place] [address] Care Team Providers Care Worldwide Chief Creative Officer Name Role Phone Espinoza Thakur MD Primary Care Provider [phone] Encounter Details Date Type Department Care Team (Latest Contact Info) Description 02/19/2025 Travel Social History Tobacco Use Types Packs/Day [...] on file documented as of this encounter Plan of Treatment Upcoming Encounters Date Type Department Care Team (Late st Contact Info) Description 06/19/2025 9:30 AM EDT Appointment Cardiac Imaging [address] [place] [address] 06/19/2025 11:40 AM EDT Office Visit [facility] [address] [facility] [place] [address] Jordon Tidwell MD [address] [place] [address] 08/21/2025 11:40 AM EST Office Visit [facility] Sleep Disorder Center [address], [address] [place] [address] Polina Granados MD [address] [place] [address] 09/10/2025 1:00 PM EST Office Visit [facility] [address] [place] [address] Tanja Parsons MD [address] [place] [address] 01/25/2026 10:30 AM EDT Office Visit [facility] [address] [place] [address] Emi Orozco PA [address] [place] [address] documented as of this encounter [...] documented as of this encounter Care Teams Worldwide Chief Creative Officer Relationship Specialty Start Date End Date Espinoza Thakur MD [address] [place] [address] #1 [address] [place] [address] PCP - General 02/11/21 documented as of this encounter
--- OUTSIDE RECORDS SUMMARY | 2025-03-26 09:38 | XMS_ITS | Encounter Summary ---
Author Organization Healthcare Address [address] [place] [address] Care Team Providers Care Locomotive Observer Name Role Phone Espinoza Thakur MD Primary Care Provider [phone] Encounter Details Date Type Department Care Team (Latest Contact Info) Description 02/17/2025 Travel Social History Tobacco Use Types Packs/Day [...] EDT Appointment Cardiac Imaging [address] [place] [address] 06/19/2025 11:40 AM EDT Office Visit [facility] [place] [facility] [address] [facility] [place] [address] Jordon Tidwell MD [address] [place] [address] 08/21/2025 11:40 AM EST Office Visit [facility] Sleep Disorder Center [address], [address]th [place] [address] Polina Granados MD [address] [place] [address] 09/10/2025 1:00 PM EST Office Visit [facility] [place] [facility] [address] [place] [address] Tanja Parsons MD [address] [place] [address] 01/25/2026 10:30 AM EDT Office Visit [facility] [address], [address] [place] [address] Emi Orozco PA [address] [place] [address] documented as of this encounter [...] documented as of this encounter Care Teams Locomotive Observer Relationship Specialty Start Date End Date Espinoza Thakur MD [address] [place] [address] #1 [address]1 [place] [address] PCP - General 02/11/21 documented as of this encounter
[2025-03-26 10:15] LABS: Potassium 4.6 mmoL/L (3.5-5.1)
== END 2025-03-26 23:59 | disposition home or self-care (01) ==
LOC: LAB 09:35
PROVIDERS: PCP Family Medicine; Visit Provider Family Medicine
DX: E87.6 Hypokalemia (principal)
CPT/HCPCS: 36415; 84132

== ENCOUNTER 2025-04-07 10:57 | Emergency (ER) | payer MEDICARE, OTHER, SELFPAY ==
--- OUTSIDE RECORDS SUMMARY | 2025-02-17 08:50 | XMS_ITS | Encounter Summary ---
Author Organization Healthcare Address [address] [place] [address] Care Team Providers Care Take Out Waiter/Waitress Name Role Phone Espinoza Thakur MD Primary Care Provider [phone] Encounter Details Date Type Department Care Team (Latest Contact Info) Description 02/17/2025 8:50 AM EDT - 02/17/2025 11:59 PM EDT Hospital Encounter Cardiac Imaging [address] [place] [address] Biventricular pacemaker check Discharge Disposition: Home or [...] AM EDT Appointment Cardiac Imaging [address] [place] [address] 06/19/2025 11:40 AM EDT Office Visit [facility] [place] [address] [facility] [place] [phone] Jordon Tidwlel MD [address] [place] [address] 08/21/2025 11:40 AM EST Office Visit [facility] Sleep Disorder Center [address] [place] [phone] Polina Granados MD [address] [place] [address] 09/10/2025 1:00 PM EST Office Visit [facility] [place] [address] [place] [address] Tanja Parsons MD [address] [place] [address] 01/25/2026 10:30 AM EDT Office Visit [facility] [address] [place] [address] Emi Orozco PA [address] [place] [address] documented as of this encounter Procedures Procedure Name Priority Date/Time Associated Diagnosis Comments CARDIAC DEVICE CHECK - REMOTE - PACEMAKER Routine 02/17/2025 12:14 PM EDT Biventricular pacemaker check documented in this encounter Results * CARDIAC DEVICE CHECK - REMOTE - PACEMAKER (02/17/2025 12:14 PM EDT) Anatomical Region Laterality Modality Other Narrative 02/17/2025 12:46 PM EDT [facility] - [facility] Remote CIED [...] documented as of this encounter Care Teams Take Out Waiter/Waitress Relationship Specialty Start Date End Date Espinoza Thakur MD [address] [place] [address] [address] [place] [id number] PCP - General 02/11/21 documented as of this encounter
--- OUTSIDE RECORDS SUMMARY | 2025-02-19 11:40 | XMS_ITS | Encounter Summary ---
Author Organization Healthcare Address [address] [place] [address] Care Team Providers Care Inspector Eyeglass Frames Name Role Phone Espinoza Thakur MD Primary Care Provider [phone] Reason for Referral * Consultation (Routine) - Authorized Specialty Diagnoses / Procedures Referred By Neema burger Referred To Contact Diagnoses KALEIGH (obstructive sleep apnea) Polina Granados MD [address] [address] Phone: tel: fax: Referral ID Status Reason Start Date Expiration Date V isits Requested Visits Authorized [id number] Authorized 02/19/2025 08/21/2026 1 1 Reason for Visit * Reason Comments Follow-up Encounter Details Date Type Department Care Team (Late st Contact Info) Description 02/19/2025 11:40 AM EDT Office Visit [facility] [address] [facility] [place] [address] Polina Granados MD [address] [address] KALEIGH (obstructive sleep apnea) (Primary Dx) Social History Tobacco Use Types Packs/Day Years [...] on file documented as of this encounter Last Filed Vital Signs Vital Sign Reading Time Taken Comments Blood Pressure 126/85 02/19/2025 10:43 AM EDT Pulse 59 02/19/2025 10:43 AM EDT Temperature - - Respiratory Rate - - Oxygen Saturation 99% 02/19/2025 10:43 AM EDT Inhaled Oxygen Concentration - - Weight 100 kg (220 lb 7.4 oz) 02/19/2025 10:43 A M EDT Height 152.4 cm (5') 02/19/2025 10:43 AM EDT Body Mass Index 43.06 02/19/2025 10:43 AM EDT documented in this encounter Miscellaneous Notes * Patient Instructions - Polina Granados MD - 02/19/2025 11:40 AM EDT Sleep Clinic Instructions - limit the use of alcohol and sedating medications; control nasal congestion; and continue effortsat weight management. -Please use PAP therapy all night, every night, and with naps. -Always inform surgeon/anesthesiologist about diagnosis of KALEIGH -The recommended amount for continued insurance coverage is at least 4 hours of usage on at least 70% of the nights. We recommend to use his device all night every night, to clean device at regular intervals, and obtain new mask, filter, and tubing supplies every 3-6 months. (https://www.thoracic.org/patients/patient-resources/resources/wbf-hseg-jan-keith ronaldo.pdf) -Do NOT drive, operate machinery, or participate in potentially hazardous activities if sleepy -Use caution with opioid pain medication, alcohol, other TIMEKEEPER SUPERVISOR depressants (and to notify their prescriber of presence of KALEIGH) -Continue to regularly follow up with PCP and other specialists for management of other medical problems. * Progress Notes - Polina Granados MD - 02/19/2025 11:40 AM EDT SLEEP CENTER FOLLOW UP PATIENT APPOINTMENT Chief Complaint: follow up of kaleigh History of Present Illness: Sharona Sanchez is a 39 y.o. female with history of Trisomy 21 presenting for follow up of obstructive sleep apnea Mother and Sister assist with history She has a past medical history of CHB s/p cardiac resynchronization therapy (NUTRITION INTERN) pacemaker, trisomy 21, AV canal repair, ostium secundum defect repair s/p mechanical MVR tricuspid annuloplasty, and subsequent complete heart block. She is chronically anticoagulated due to chronic atrial arrhythmiasand MVR., KALEIGH on CPAP. PSG in 2018 at [facility], [place] showed KALEIGH with AHI 56.2, RDI 62.8 with Min O280% She was previously on supplemental oxygen at 2 LPM After RSV infection in Aug 2024, was increased to 6 LPM Interval history: Titration sleep study in 11/2024, CPAP 10 cm of water was effective in treatment of KALEIGH. Excss mask leak was noted. No oxygen supplementation was needed on the night with SpO2 ranging high 80s-90s At this time she remains on supplemental oxygen 2 LPM, as per the shear tender, during day on exertion and night Currently on CPAP 10 cm of water Flex 3 Ramp 15 min Uses FFM with distilled water DME: [employer] Has [employer] Dreamstation II since 2 years S/p recall Avg use 30/30 nights with 30/30 > 4 hrs Device AHI 2.8 Uses a cotton mask cover as can cause rash Else No issues with mask, machine or pressure Benefits: no snoring Sleep history Sleeps alone Goes to bed: 10 pm Falls asleep: few min Wakes up during sleep: mostly no Up for the day: 7 am Naps: no. Rare unintentional naps Caffeine intake: none Prior sedative/hypnotics or stimulants used: no Reports excessive daytime sleepiness.Denies driving Denies sleep walking, dream enactment. No definite symptoms suggestive of restless legs syndrome Prior Sleep Study Data: No previous sleep studies. No previous sleep study reports are available for review. PAST MEDICAL HISTORY: Patient Active Problem List Diagnosis Acute diastolic heart failure secondary to hypertrophic obstructive cardiomyopathy (CMS/HCC) Allergic rhinitis Apnea, sleep Atrial fibrillation (CMS/HCC) Atrial flutter (CMS/HCC) Atrioventricular canal Status post mitral valve replacement Presence of cardiac pacemaker Obesity Hypothyroidism Down syndrome Complete heart block, post-surgical (CMS/HCC) CHF (congestive heart failure) (CMS/HCC) End of battery life of cardiac resynchronization therapy pacemaker (NUTRITION INTERN-P) Pacemaker complications, initial encounter H/O tricuspid valve annuloplasty Left foot pain PAST SURGICAL HISTORY: Past Surgical History: Procedure Laterality Date INSERT / REPLACE / REMOVE PACEMAKER N/A Permanent Pacemaker Before School [employer] from [employer] MITRAL VALVE REPLACEMENT OTHER SURGICAL HISTORY N/A Tricuspid Valve Annuloplasty from [employer] OTHER SURGICAL HISTORY N/A History of cardiac pacemaker from [employer] TONSILECTOMY, ADENOIDECTOMY, BILATERAL MYRINGOTOMY AND TUBES N/A Tonsillectomy With Adenoidectomy from [employer] MEDICATIONS Outpatient Encounter Medications as of 02/19/2025 Medication Sig Dispense Refill albuterol 108 (90 Base) MCG/ACT inhaler Inhale 2 puffs 1 (one) time each day if needed. aspirin 81 MG EC tablet Take 1 tablet (81 mg) by mouth every night. Azelastine HCl 137 MCG/SPRAY solution calcium-vitamin D 500-200 MG-UNIT tablet Take 1 tablet by mouth 1 (one) time each day. cholecalciferol (Vitamin D-3) 25 MCG (1000 UT) tablet Take 1 tablet (1,000 Units) by mouth 1 (one) time each day. furosemide (Lasix) 40 MG tablet Take 1 tablet (40 mg) by mouth 1 (one) time each day. guaiFENesin (Mucinex) 600 MG 12 hr tablet Take 2 tablets (1,200 mg) by mouth 2 (two) times a day. Do not crush, chew, or split. levothyroxine (Synthroid, Levoxyl) 125 MCG tablet Take 1 tablet (125 mcg) by mouth 1 (one) time each day before breakfast. metoprolol succinate XL (Toprol-XL) 25 MG 24 hr tablet Take 0.5 tablets (12.5 mg) by mouth daily. 15 tablet 5 montelukast (Singulair) 10 MG tablet Take 1 tablet (10 mg) by mouth every night. norethindrone (Micronor) 0.35 MG tablet Take 1 tablet (0.35 mg) by mouth 1 (one) time each day. 84 tablet 3 Pediatric Multiple Vit-C-FA (FLINSTONES GUMMIES OMEGA-3 DHA PO) Take 2 tablets by mouth 1 (one) time each day. warfarin (Coumadin) 1 MG tablet warfarin (Coumadin) 6 MG tablet Take 1 tablet (6 mg) by mouth 1 (one) time each day. Take as directed per After Visit Summary. 7mg on Sunday No facility-administered encounter medications on file as of 02/19/2025. ALLERGIES: Allergies Allergen Reactions Doxycycline Unknown - Patient states they do not know rxn details FAMILY HISTORY: Sharona Sanchez's family history includes Diabetes in her brother; Heart attack in her father; Hypercholesterolemia in her mother; Hypertension in her mother; Mental illness in her brother; Thyroid disease in her mother. SOCIAL HISTORY: Sharona Sanchez reports that she has never smoked. She has never been exposed to tobacco smoke. She has never used smokeless tobacco. She reports that she does not drink alcohol and does not use drugs. REVIEW OF SYSTEMS: Pertinent positive and negative systems are described in the HPI; the remainder of the 14 systems are negative. Objective REVIEW OF TEST RESULTS: Lab Results Component Value Date WBC 5.64 05/18/2021 HGB 13.9 05/18/2021 HCT 41.1 05/18/2021 PLT 220 05/18/2021 NA 135 (L) 05/18/2021 K 4.6 05/18/2021 CL 105 05/18/2021 CREATININE 0.68 05/18/2021 BUN 10 05/18/2021 CO2 22 05/18/2021 INR 2.3 (H) 05/18/2021 Visit Vitals BP 126/85 Pulse 59 Ht 1.524 m (5') Wt 100 kg (220 lb 7.4 oz) SpO2 99% BMI 43.06 kg/m?? OB Status Other Smoking Status Never BSA 2.06 m?? Physical Exam: Verbal consent taken prior to examination: CONSTITUTIONAL: Well appearing in no apparent distress; The patient does appear obese. Auscultation limited due to body habitus EYES: Anicteric, conjunctivae clear; no ptosis; THROAT/MOUTH: Lips and mucosa are normal. TONGUE large TONSILS not visualized MALLAMPATI: IV RESPIRATORY: Work of breathing appears normal; CTA b/l CARDIAC: Irregular rate S1S2+. No clear murmurs GI: NTND BS+ PSYCHIATRIC: Mood appears good; affect is normal MUSCULOSKELETAL:The patient is sitting comfortable upright in chair NEURO: The patient is A&Ox2 , limited speech is fluent TTE 03/04/24 History: Trisomy 21, Type A Atrioventricular Canal, s/p AVC repair (02/02/87, [facility], [place]), s/p 27mm [employer] left AVV replacement, right AVV annuloplasty ring (01/20/11), Complete Heart Block with pacemaker. Atrioventricular Valve: There are separate right and left AV valves. The right AV valve: There is an annuloplasty ring around the right AV valve. Mild to moderate right AV valve regurgitation. The right AV valve mean gradient is 7 mmHg at a heart rate of 70 bpm. The left AV valve: There is a mechanical valve. No left AV valve regurgitation. The left AV valve mean gradient is 6 mmHg at a heart rate of 70 bpm. Left Ventricle: The left ventricle is not well visualized. The left ventricle is the systemic ventricle. Based on the linear dimension and/or 2D volumes, the left ventricle is mildly dilated in size.There is normal left ventricular myocardial thickness and mass. The left ventricular systolic function is mildly reduced. The LVEF is visually estimated at 40 - 50%. Compared to the most recently available prior study, and allowing for differences in image quality and technique, there is no significant interval change noted. ASSESSMENT AND PLAN: Sharona Sanchez is a 39 y.o. female with a past medical history of Trisomy 21, CHB s/p cardiac resynchronization therapy (NUTRITION INTERN) pacemaker presenting for obstructive sleep apnea 1. Obstructive Sleep Apnea on Auto CPAP Currently on CPAP 10 cm of water with supplemental oxygen at 2 LPM Device AHI 2.8 Defer plan for oxygen supplementation to shear tender-may consider 24 hour oximetry to determine if oxygen supplementation could be stopped. Nightly PAP usage advised. Education- provided in person and/or in check-out in AVS (found in [facility]) Sleep Clinic Instructions --pursue good sleep hygiene including maintaining a strict sleep schedule, avoiding naps and avoiding electronics at bedtime. -Please use PAP therapy all night, every night, and with naps. -Always inform surgeon/anesthesiologist about diagnosis of KALEIGH - We recommend to use his device all night every night, to clean device at regular intervals -Do NOT drive, operate machinery, or participate in potentially hazardous activities if sleepy -Use caution with opioid pain medication, alcohol, other TIMEKEEPER SUPERVISOR depressants (and to notify their prescriber of presence of KALEIGH) -Continue to regularly follow up with PCP and other specialists for management of other medical problems. Time Spent: I personally spent a total of 40 minutes on this encounter. This time includes face to face with patient, counseling , documentation on same day and discussion and/or coordination of care. Polina Granados MD documented in this encounter Plan of Treatment Upcoming Encounters Date Type Department Care Team (Late st Contact Info) Description 06/19/2025 9:30 AM EDT Appointment Cardiac Imaging [address] [place] [phone] 06/19/2025 11:40 AM EDT Office Visit [facility] [address] [place] [address] Jordon Tidwell MD [address] [place] [address] 08/21/2025 11:40 AM EST Office Visit [facility] Sleep Disorder Center [address], 4th [place] [address] Polina Granados MD [address] [place] [address] 09/10/2025 1:00 PM EST Office Visit [facility] [address] [place] [phone] Tanja Parsons MD [address] [place] [address] 01/25/2026 10:30 AM EDT Office Visit [facility] [address], [address] [place] [phone] Emi Orozco PA [address] [place] [phone] Scheduled Referrals Name Type Priority Associated Diagnoses Orde r Schedule Follow Up Sleep Medicine Outpatient Referral Routine KALEIGH (obstructive sleep apnea) Expected: 08/22/2025, Expires: 03/22/2026 documented as of this encounter Visit Diagnoses Diagnosis KALEIGH (obstructive sleep apnea)- Primary Obstructive sleep apnea (adult) (pediatric) documented in this encounter Additional Health Concerns Assessment Noted Time PHQ-9 Depression Total Score: 0 01/27/20 9:00 AM EDT A fall risk assessment has been complete d for the patient 01/26/2025 9:00 AM EDT A Body Mass Index follow-up plan has been documented for the patient 02/19/2025 1:28 PM EDT documented as of this encounter Care Teams Inspector Eyeglass Frames Relationship Specialty Start Date End Date Espinoza Thakur MD [address] [place] [address] [address] [place] [id number] PCP - General 02/11/21 documented as of this encounter
--- OUTSIDE RECORDS SUMMARY | 2025-03-12 12:40 | XMS_ITS | Encounter Summary ---
Author Organization [facility] Address [address] [id number] Care Team Providers Care Toy Assembly Supervisor Name Role Phone Espinoza Thakur MD Primary Care Provider [phone] Reason for Referral * Consultation (Routine) - Authorized Specialty Diagnoses / Procedures Referred By Neema burger Referred To Contact Diagnoses Atrial fibrillation, unspecified type (CMS/HCC) Jenny Tolentino PA [address] [place] [address] Phone: tel: fax: Referral ID Status Reason Start Date Expiration Date V isits Requested Visits Authorized [id number] Authorized 03/12/2025 09/11/2026 1 1 Reason for Visit * Reason Comments Device Check Encounter Details Date Type Department Care Team ([facility] st Contact Info) Description 03/12/2025 12:40 PM EDT Office Visit [facility] [place] [address] [place] [address] Tanja Parsons MD [address] [place] [address] Atrial fibrillation, unspecified type (CMS/HCC) [...] Tolentino PA - 03/12/2025 12:40 PM EDT [facility] [place] [facility] Follow Up Note Date of Visit 03/12/25 Patient Sharona Sanchez [address] [place] [address] [place] [address] PCP Espinoza Thakur MD Chief Complaint SUBJECTIVE History of Present Illness Sharona Sanchez is a 39 y.o. female who presents today in the electrophysiology clinic for follow up. She is followed for a congenital history of , trisomy 21, AV canal repair, ostium secundumdefect repair s/p mechanical MVR tricuspid annuloplasty, and subsequent complete heart block now s/p St. Elijah AMUSEMENT EQUIPMENT OPERATOR-P. She is chronically anticoagulated due to chronic atrial arrhythmias and MVR., KALEIGH on CPAP. She also follows w Dr. Tidwell. Her family denies any recent cardiac issues. They traveled to [place] earlier this year and the altitude was [...] Affect: Mood normal. Diagnostics Device Interrogation Overview Computer Publisher: Kat/St. Elijah Device type: multilead chamber pacemaker [...] A Atrioventricular Canal, s/p [facility]02[facility]02/[facility] s/p 27mm St. Elijah left AVV replacement, [...] Anticoagulated and monitored by Dr. Thakur in [place]. Programmed VVIR St. Elijah AMUSEMENT EQUIPMENT OPERATOR-P: remotely monitored. Normal device function. -pacemaker dependency [...] battery life of cardiac resynchronization therapy pacemaker (AMUSEMENT EQUIPMENT OPERATOR-P) Pacemaker complications, initial encounter H/O tricuspid valve [...] EDT Appointment Cardiac Imaging [address] [place] [phone] 06/19/2025 11:40 AM EDT Office Visit [facility] [address] [place] [phone] Jordon Tidwell MD [address] [place] [address] 08/21/2025 11:40 AM EST Office Visit [facility] Sleep Disorder Center [address] [place] [address] Polina Granados MD [address] [place] [address] 09/10/2025 1:00 PM EST Office Visit [facility] [address] [place] [phone] Tanja Parsons MD [address] [place] [address] 01/25/2026 10:30 AM EDT [facility] [address] [place] [address] Emi Orozco PA [address] [place] [address] Scheduled Referrals Name Type Priority [...] documented as of this encounter Care Teams Toy Assembly Supervisor Relationship Specialty Start Date End Date Espinoza Thakur MD [address] [place] [address] [address] [place] [address] PCP - General 02/11/21 documented as of this encounter
[2025-04-07] VITALS (12 sets, daily range): BP systolic 122–143; BP diastolic 63–80; PULSE 65–78; RESP 16–20; TEMP 36.9–37; O2SAT 91–99; BMI 41.8
--- NOTE | 2025-04-07 11:07 | PC.NURSE ---
1102hrs- urine sample collected and sent to lab. 1105hrs- pt placed on vitals machine for monitoring.
--- OUTSIDE RECORDS SUMMARY | 2025-04-07 11:09 | XMS_ITS | Encounter Summary ---
Author Organization Healthcare Address [address] [place] [address] Care Team Providers Care Radio Engineering Teacher Name Role Phone Espinoza Thakur MD Primary Care Provider [phone] Encounter Details Date Type Department Care Team [...] EDT Appointment Cardiac Imaging [address] [place] [address] 06/19/2025 11:40 AM EDT Office Visit [facility] [address] [facility] [place] [address] Jordon Tidwell MD [address] [place] [address] 08/21/2025 11:40 AM EST Office Visit [facility] Sleep Disorder Center [address], 4th [place] [address] Polina Granados MD [address] [place] [address] 09/10/2025 1:00 PM EST Office Visit [facility] [address] [place] [address] Tanja Parsons MD [address] [place] [address] 01/25/2026 10:30 AM EDT Office Visit [facility] [address], [address] [place] [address] Emi Orozco PA [address] [place] [address] documented as of this encounter [...] documented as of this encounter Care Teams Radio Engineering Teacher Relationship Specialty Start Date End Date Espinoza Thakur MD [address] [place] [address] #1 [address] [place] [address] PCP - General 02/11/21 documented as of this encounter
--- OUTSIDE RECORDS SUMMARY | 2025-04-07 11:09 | XMS_ITS | Encounter Summary ---
Author Organization Healthcare Address [address] [place] [address] Care Team Providers Care Electrical Appliance Preparer Name Role Phone Espinoza Thakur MD Primary Care Provider Encounter Details Date Type Department Care Team [...] EDT Appointment Cardiac Imaging [address] [place] [address] 06/19/2025 11:40 AM EDT Office Visit [facility] [address] [facility] [place] [address] Jordon Tidwell MD [address] [place] [address] 08/21/2025 11:40 AM EST Office Visit [facility] Sleep Disorder Center [address], [address] [place] [address] Polina Granados MD [address] [place] [address] 09/10/2025 1:00 PM EST Office Visit [facility] [address] [place] [address] Tanja Parsons MD [address] [place] [address] 01/25/2026 10:30 AM EDT Office Visit [facility] [address], [address] [place] [address] Emi Orozco PA [address] [place] [address] documented as of this encounter [...] documented as of this encounter Care Teams Electrical Appliance Preparer Relationship Specialty Start Date End Date Espinoza Thakur MD [address] [place] [address] #1 [address] [place] [address] PCP - General 02/11/21 documented as of this encounter
--- OUTSIDE RECORDS SUMMARY | 2025-04-07 11:09 | XMS_ITS | Encounter Summary ---
Author Organization Healthcare Address [address] [place] [address] Care Team Providers Care Seed Corn Manager Production Name Role Phone Espinoza Thakur MD Primary Care Provider [phone] Encounter Details Date Type Department Care Team [...] EDT Appointment Cardiac Imaging [address] [place] [address] 06/19/2025 11:40 AM EDT Office Visit [facility] [address] [facility] [place] [address] Jordon Tidwell MD [address] [place] [address] 08/21/2025 11:40 AM EST Office Visit [facility] Sleep Disorder Center [address]th [place] [address] Polina Granados MD [address] [place] [address] 09/10/2025 1:00 PM EST Office Visit [facility] [address] [place] [address] Tanja Parsons MD [address] [place] [address] 01/25/2026 10:30 AM EDT Office Visit [facility] [address] [place] [address] Emi Orozco PA [address] [place] [address] documented as of this encounter [...] documented as of this encounter Care Teams Seed Corn Manager Production Relationship Specialty Start Date End Date Espinoza Thakur MD [address] [place] [address] [address]1 [address] [place] [address] PCP - General 02/11/21 documented as of this encounter
--- OUTSIDE RECORDS SUMMARY | 2025-04-07 11:09 | XMS_ITS | Clinical Summary ---
Author Organization Healthcare Address [address] [id number] Care Team Providers Care Volunteer Coordinator Name Role Phone Espinoza Thakur MD Primary Care Provider [phone] Allergies Active Allergy Reactions Criticality Noted Date [...] life of cardi ac resynchronization therapy pacemaker (THAI MASSEUR-P) 04/22/2021 Overview (04/22/2021): Added automatically from request for surgery [id number] Hypothyroidism 12/09/2020 Status post mitral valve replacement [...] (04/22/2021): Added automatically from request for surgery [id number] Weight loss counseling, encounter for 12/09/2020 05/03/2021 Weight gain 12/09/2020 05/03/2021 Obesity, Class III, BMI 40-4 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 [place] [address] Tanja Parsons MD Atrial fibrillation, unspecified type (CMS/HCC) (Primary Dx); Pacemaker complications, initial encounter 03/12/2025 Travel 02/19/2025 11:40 AM EDT Office Visit [facility] [address] [place] [address] Polina Granados MD [place] (obstructive sleep apnea) (Primary Dx) 02/19/2025 Travel 02/17/2025 8:50 AM EDT - 02/17/2025 11:59 PM EDT Hospital Encounter [facility] [address] [place] [address] Biventricular pacemaker check Discharge Disposition: Home or Self Care 02/17/2025 Travel 01/26/2025 9:00 AM EDT Office Visit [facility] [address] [place] [phone] Emi Orozco PA Hypoxia (Primary Dx); Obstructive sleep apnea syndrome; Class 3 severe obesity without serious comorbidity with body mass index (BMI) of 45.0 to 49.9 in adult, unspecified obesity type 01/26/2025 Travel 01/06/2025 Telephone Cardiac Imaging [address] [place] [address] Sophie Mccormack from Last 3 Months Immunizations Immunization Administration Dates Next Due Hep A, Adult 09/11/2018 Influenza, seasonal, injectable, preservative fr ee 06/25/2024 [facility] COVID-19 Vaccine (Purple Cap) 12 + 11/25/2020,11/03/2020 [...] EDT Appointment Cardiac Imaging [address] [place] [id number] 06/19/2025 11:40 AM EDT Office Visit [facility] [address] [place] [phone] Jordon Tidwell MD [address] [place] [id number] 08/21/2025 11:40 AM EST Office Visit [facility] [address] [place] [phone] Polina Granados MD [address] [place] [address] 09/10/2025 1:00 PM EST Office Visit [facility] [address] [place] [address] Tanja Parsons MD [address] [place] [address] 01/25/2026 10:30 AM EDT Office Visit [facility] [address] [place] [address] Emi Orozco PA [address] [place] [address] Health Maintenance Due Date Last [...] of 3 - 19+ 3-dose series) 2002 [facility]-Pneumococcal Vaccine: Pediatrics (0 to 5 Years) and At-Risk Patients (6 to 49 Years) (1 of 2 - PCV) 2002 [facility]-Pap Smear 2004 [facility]-Cervical Cancer Screening 2013 [facility]-HPV/Cotest 2013 [id number] Vaccine (2023- season) 2024 06/01/2022, 07/28/2021, 11/25/2020, Additional history exists [facility]-Influenza Vaccine (#1) 2025 06/25/2024 [facility]-Depression Screening 03/12/2026 025, 03/12/2025, 07/28/2024 [facility]-Zoster Vaccines (1 of 2) 2033 [facility]-Hepatitis A Vaccines Aged Out 09/11/2018 No longer eligible based on patient's age to complete this topic [facility]-Obesity Intervention Completed 025, 02/19/2025, 01/26/2025, Additional history exists [facility]-HIB Vaccines Aged Out No longer e ligible based on patient's age to complete this topic [facility]-IPV Vaccines Aged Out No longer e ligible based on patient's age to complete this topic [facility]-Rotavirus Vaccines Aged Out No lo nger eligible based on patient's age to complete this topic Medical Devices Implanted Type Area Alarm Security Or Surveillance Monitor Device Identifier Shelf Expiration Date Model / Serial / Lot [id number] Quickflex Xl [id number] Lead [id number] QUICKFLEX XL / [id number] / [id number] Tendril Sts [id number] Lead [id number] TEND RIL STS / [id number] / [id number] Tendril Sts [id number] Lead 2088TC TEND RIL STS / [id number] / Pacemaker Allure Bi Vent - [id number] Implanted:Qty: 1 on 05/03/2021 by Tanja Parsons MD at [facility] [id number] 05/31/2021 [id number] / [id number] / [id number] Procedures Procedure Name Priority Date/Time Associated Diagnosis [...] See Media for full report. Suellen Smith Kvngcarynkat MCCORMICK CV IMPLANTABLE CARDIAC DEV ICE PROCEDURES Final Result from Last 3 Months Insurance MEDICARE [facility] Advance Directives * Full Code (Latest Code Status on File) Date Activated Date Inactivated Comments 05/17/2021 5:32 PM 05/18/2021 4:30 PM Question Answer Comments Patient has decision-making capacity? Yes Care Teams Volunteer Coordinator Relationship Specialty Start Date End Date Espinoza Thakur MD [address] [place] [address] #1 #1 SarahHOLLY [id number] PCP - General 02/11/21
--- NOTE | 2025-04-07 11:21 | ED_ITS ---
<Statement entered by Donnie Whiting MD - 04/14/25 23:27> I was consulted by the PARTHA, and we discussed the complexity of the problems being addressed. I approved the treatment and management plan for this patient's care in the emergency department, thus performing a substantive portion of the medical decision making. Donnie Whiting MD, RAINE, FACEP Discharge Plan Disposition Patient Disposition: Home, Self-Care Condition: Good Prescriptions Prescriptions: No Action warfarin 6 mg tablet 6 mg PO DAILY Rx Instructions: GIVE WITH 1 MG TABLET DAILY FOR 7 MG TOTAL. montelukast 10 mg tablet 10 mg PO PM albuterol sulfate 90 mcg/actuation HFA aerosol inhaler 2 puff INHALATION Q6HP PRN (Reason: Shortness Of Breath Or Wheezing) 17 Days Patient Comments: furosemide 40 mg tablet 40 mg PO DAILY 90 Days Patient Comments: levothyroxine 125 mcg tablet 125 mcg PO DAILYDM 90 Days Patient Comments: cholecalciferol (vitamin D3) 2,000 unit capsule 2,000 unit PO DAILY warfarin 1 mg tablet 1 mg PO DAILY 90 Days Qty: 90 Patient Comments: 8mg Sunday, Sunday 7mg Sunday, Sunday, , Sunday, Sunday Rx Instructions: GIVE WITH 6 MG TABLET DAILY FOR 7 MG TOTAL. cephalexin 500 mg capsule 500 mg PO Q8H 7 Days Qty: 21 0RF metoprolol succinate 25 mg tablet extended release 24 hr 12.5 mg PO DAILY norethindrone (contraceptive) 0.35 mg tablet 0.35 mg PO DAILY loratadine [Claritin] 10 mg Tablet 10 mg PO DAILY azelastine 137 mcg (0.1 %) [place],Non-Aerosol 2 spray intranasal DAILY Rx Instructions: administer into each nostril Referrals Follow up/Referrals: Marc Thakur MD [Primary Care Provider, Medical] - See instructions Activity Restrictions/Add. Instructions Additional Instructions/Restrictions: We recommend following up with your PCP if you have any new symptoms if you have any worsening signs or symptoms follow-up sooner with your PCP or return to the ER as needed. Clinical Impressions Clinical Impression: Fall, Anticoagulated, Supratherapeutic INR Print Language Print Language: [place] Discharge ED Provider: Donnie Whiting General Adult HPI <JODY Martinez - Last Filed: 04/07/25 18:48> General Chief complaint: Fall Stated complaint: AO 04/07/25 1030, fell, inj lt arm,leg,rt finger Time Seen by Provider: 04/07/25 11:21 History of Present Illness HPI narrative: Patient presents for evaluation of a fall. Patient has a history of Down syndrome and has a cognitive age of approximately 4. There is construction going on in the house and the family dog was placed in the room with her in a gait placed across the doorway to prevent the dog from leaving or escaping. Unfortunately patient could not navigate how to get out or over the gate and instead attempted to exit her room via a window. While the window was on the ground floor is approximately 3 foot dropped to the ground. Patient was unable to safely navigate and ended up falling while jail out of the window. She landed primarily on her right side but initially suffered no apparent injury. She was able to ambulate and her family members found her sitting at the kitchen table. Patient is on Coumadin however and they noticed that she started having bruising to her left forearm hence they bring her to the emergency department for evaluation. At the time my arrival patient is only complaining of pain to her left forearm as she denies injury anywhere else or pain anywhere else. She denies hitting her head or losing consciousness. Related Data Home Medications ?Medication ?Instructions ?Recorded ?Confirmed albuterol sulfate 90 mcg/actuation 2 puff inhalation Q 6HP PRN 11/01/17 04/07/25 aerosol inhaler Shortness Of Breath Or Wheez ing 17 days cholecalciferol (vitamin D3) 50 2,000 unit PO DAILY 04/07/25 mcg (2,000 unit) capsule furosemide 40 mg tablet 40 mg PO DAILY 90 days 11/0104/07/25 levothyroxine 125 mcg tablet 125 mcg PO DAILYDM 90 day s 11/01/17 04/07/25 warfarin 1 mg tablet 1 mg PO DAILY MECHANICAL GORDON VE 90 01/07/19 04/07/25 days #90 tabs warfarin 6 mg tablet 6 mg PO DAILY MECHANICAL GORDON VE 01/07/19 04/07/25 montelukast 10 mg tablet 10 mg PO PM 03/28/19 5 azelastine 137 mcg (0.1 %) nasal 2 spray intranasal DA GABO Allergy 08/23/24 04/07/25 spray Symptoms loratadine 10 mg tablet (Claritin) 10 mg PO DAILY 08/0204/07/25 metoprolol succinate 25 mg 12.5 mg PO DAILY 08/23/24 0 04/07/25 tablet,extended release 24 hr norethindrone (contraceptive) 0.35 0.35 mg PO DAILY 04/07/25 mg tablet Previous Rx's ?Medication ?Instructions ?Recorded cephalexin 500 mg capsule 500 mg PO Q8H 7 days #21 cap s 10/26/24 Allergies Allergy/AdvReac Type Severity Reaction Status Date / Time doxycycline Allergy Mild Unknown Verified 08/23/24 02:38 allergy reaction amoxicillin Allergy Unknown Verified 08/23/24 02:38 allergy reaction Milk Containing Products Allergy Vomiting Verified 08/23/24 02:38 (Dairy) [facility] <OJDY Martinez - Last Filed: 04/07/25 18:48> [facility] Disclaimer: The information contained in this section may have been updated after the patient was seen, as this information can be updated by other users. Medical History (Updated 04/07/25 @ 13:10 by Donnie Whiting MD) CAD (coronary artery disease) Obstructive sleep apnea CHF (congestive heart failure) Pacemaker Surgical History (Updated 08/23/24 @ 02:58 by Abby Monae RN) Mechanical heart valve present Social History (Updated 08/23/24 @ 02:58 by Abby Monae RN) Smoking Status: Never smoker alcohol intake: never counseling provided: none substance use type: denies use current occupational status: disabled Travel in the last 8 weeks?: None household members: family housing: house Have you lived/traveled outside US in past 30 days?: No Contact w/someone who lives/traveled outside US past 30 days?: No Exposure to someone with infectious disease in past 14 days?: No Do you have a fever (greater than 100.4 F or 38 C)?: No Have you tested positive for COVID-19?: No Exposed to someone with COVID-19 in past 14 days?: No Do you have a sore throat?: No Do you have a cough?: No Do you have any weakness?: No Do you have any diarrhea?: No Are you experiencing any unusual bleeding?: No Do you have any muscle aches/pain?: No Do you have any abdominal pain?: No Are you experiencing loss of taste or smell?: No Other Medical History Have you received the Flu Vaccine for this season: No Have you received the Pneumonia Vaccine: No <JODY Martinez - Last Filed: 04/07/25 18:48> ROS Obtained: Yes Systems reviewed as appropriate & no additional complaints except as documented Physical Exam <JODY Martinez - Last Filed: 04/07/25 18:48> General General appearance: alert Respiratory Respiratory exam: Present normal lung sounds bilaterally Cardiovascular Cardiovascular exam: Present regular rate Neurological Exam Neurological exam: Present alert and oriented X3 Medical Decision Making <JODY Martinez - Last Filed: 04/07/25 18:48> Medical Records Medical records reviewed: Yes I reviewed the patient's medical records. Screening: Per USPSTF and CDC recommendations, given the prevalence of disease in our region, it is our hospital?s policy to screen for HIV and viral Hepatitis for all patients aged 18 and over and those with ongoing risk factors. [place] Inquiry Pt receiving controlled substance: No Vital Signs: 04/07/25 11:07 04/07/25 11:19 04/07/25 11:37 Temperature 98.5 F Temperature Source Oral Pulse Rate 70 70 Pulse Rate [Left Radial] 71 Respiratory Rate 20 Blood Pressure 125/63 143/64 H Blood Pressure [Right Arm] 125/63 Blood Pressure Mean [Right Arm] 83 Blood Pressure Source Blood Pressure Position 02 Sat by Pulse Oximetry 94 L 94 L 91 L Oxygen Delivery Method Room Air 04/07/25 12:00 04/07/25 12:30 04/07/25 13:30 Temperature Temperature Source Pulse Rate 74 70 70 Pulse Rate [Left Radial] Respiratory Rate Blood Pressure Blood Pressure [Right Arm] Blood Pressure Mean [Right Arm] Blood Pressure Source Blood Pressure Position 02 Sat by Pulse Oximetry 91 L 96 92 L Oxygen Delivery Method 04/07/25 14:00 04/07/25 15:30 04/07/25 16:00 Temperature Temperature Source Pulse Rate 70 70 72 Pulse Rate [Left Radial] Respiratory Rate Blood Pressure Blood Pressure [Right Arm] Blood Pressure Mean [Right Arm] Blood Pressure Source Blood Pressure Position 02 Sat by Pulse Oximetry 96 98 97 Oxygen Delivery Method 04/07/25 16:30 04/07/25 16:55 04/07/25 16:57 Temperature 98.6 F Temperature Source Oral Pulse Rate 65 70 78 Pulse Rate [Left Radial] Respiratory Rate 16 Blood Pressure 122/80 122/80 Blood Pressure [Right Arm] Blood Pressure Mean [Right Arm] Blood Pressure Source Automatic Cuff Blood Pressure Position Supine 02 Sat by Pulse Oximetry 99 92 L Oxygen Delivery Method Room Air Lab Data Lab results reviewed: Yes I reviewed the patient's lab results. Lab Results 04/07/25 12:43: WBC 6.3, RBC 5.02, Hgb 16.1, Hct 48.0 H, MCV 95.6, MCH 32.1 H, MCHC 33.5, RDW 14.8, Plt Count 173, MPV 9.7, Neut % (Auto) 59.3, Lymph % (Auto) 28.8, [place] % (Auto) 7.9, Eos % (Auto) 2.1, Baso % (Auto) 1.6, Neut # (Auto) 3.7, Lymph # (Auto) 1.8, [place] # (Auto) 0.5, Eos # (Auto) 0.1, Baso # (Auto) 0.1, PT 27.4 H, INR 2.65 H, Sodium 139, Potassium 4.7, Chloride 99, Carbon Dioxide 31 H, Anion Gap 13.7, BUN 18 H, Creatinine 0.80, Estimated Creat Clear 60, Estimated GFR 79, Est GFR ( Amer) 96, Glucose 104 H, Calcium 9.1, Total Bilirubin 1.0, AST 62 H, ALT 38, Alkaline Phosphatase 105, Total Creatine Kinase 56, Total Protein 8.8 H, Albumin 4.6, Globulin 4.2 H, Albumin/Globulin Ratio 1.1, Serum HCG, Qual Negative, Blood Type O Positive, Antibody Screen Negative 04/07/25 12:43 04/07/25 12:43 Orders (Tests/Meds): ED MEDICATIONS Discontinued Medications Generic Name Dose Route Start Last Admin Trade Name Freq PRN Reason Stop Dose Admin Iopamidol 160 ml 04/07/25 14:39 04/07/25 14:47 Iopamidol-370 (76%);100ml Bottle IV 04/07/25 14:40 160 ml ONCE ONE Administration Iopamidol 30 ml 04/07/25 14:50 04/07/25 14:50 Iopamidol-370 (76%);100ml Bottle IV 04/07/25 14:51 30 ml ONCE ONE Administration Sodium Chloride 10 ml 04/07/25 14:39 04/07/25 14:49 Sodium Chloride 0.9% 10ml Syr (Rad Only) IV 04/07/25 14:40 10 ml ONCE ONE Administration Sodium Chloride 100 ml 04/07/25 14:39 04/07/25 14:49 0.9 % Sodium Chloride 50 Ml Vial IV 04/07/25 14:40 100 ml ONCE ONE Administration ORDERS Category Date Time Status Type and Screen Stat BBK 04/07/25 12:[address] angio abd/pel - TRAUMA Stat Cat Scan 04/07/25 11:[address] angio chest - dissection Stat Cat Scan 04/07/25 11:[address] angio head Stat Cat Scan 04/07/25 11:[address] angio neck Stat Cat Scan 04/07/25 11:[address] cervical spine wo con Stat Cat Scan 04/07/25 11:[address] head/brain wo con Stat Cat Scan 04/07/25 11:[address] lumbar spine wo con Stat Cat Scan 04/07/25 11:[address] thoracic spine wo con Stat Cat Scan 04/07/25 11:53 Completed CBC w/Auto Diff [Complete Blood Count Auto Diff] Stat Lab 04/07/25 12:43 Completed CK [Creatine Kinase] Stat Lab 04/07/25 12:43 Completed CMP [Comprehensive Metabolic Panel] Stat Lab 04/07/25 12:43 Completed HCG Qualitative, Serum Stat Lab 04/07/25 12:43 Completed INR [Prothrombin Time INR] Stat Lab 04/07/25 12:43 Completed Medical Decision Narrative: In summary patient is a 39-year-old female who presents to the emergency department for evaluation of a fall. Patient is hemodynamically stable upon arrival, afebrile. Physical exam is remarkable for [place] Coma Score 15 patient is awake alert and oriented mentating at her baseline. Pupils equal round reactive to light, breath sounds clear to the bilateral to the bases without adventitious sounds, there is no chest wall tenderness, abdomen soft no rebound or guarding no rigidity, patient moves all 4 extremities and is neurovascularly intact with no focal neurologic deficits. Patient does have a moderate-sized hematoma on the volar surface of her left forearm along with some abrasions. Secondary survey shows no dorsal spine tenderness no C-spine tenderness cleared by [place] C-spine and head injury rules. She has several other abrasions but no other hematomas noted. Differential diagnosis includes occult fracture versus occult bleed versus supratherapeutic INR etc. Initial workup will be conducted with hematologic labs ED trauma scans. Initial interventions were offered however patient says that she does not need anything thus deferred. Initial workup reviewed by me shows that her INR is therapeutic at 2.65 and the remainder of her hematologic labs are nonactionable, my informed interpretation of all of her imaging shows no acute fracture or bony abnormality or vascular abnormality or bleeding. Upon repeat evaluation patient is ambulatory in the emergency department. Given this patient is appropriate for discharge with recommendations to follow-up with PCP for any new or worsening signs or symptoms or return to the ER as needed. <Donnie Whiting MD - Last Filed: 04/07/25 13:10> Vital Signs: 04/07/25 11:07 04/07/25 11:19 04/07/25 11:37 Temperature 98.5 F Temperature Source Oral Pulse Rate 70 70 Pulse Rate [Left Radial] 71 Respiratory Rate 20 Blood Pressure 125/63 143/64 H Blood Pressure [Right Arm] 125/63 Blood Pressure Mean [Right Arm] 83 Blood Pressure Source Blood Pressure Position 02 Sat by Pulse Oximetry 94 L 94 L 91 L Oxygen Delivery Method Room Air 04/07/25 12:00 04/07/25 12:30 04/07/25 13:30 Temperature Temperature Source Pulse Rate 74 70 70 Pulse Rate [Left Radial] Respiratory Rate Blood Pressure Blood Pressure [Right Arm] Blood Pressure Mean [Right Arm] Blood Pressure Source Blood Pressure Position 02 Sat by Pulse Oximetry 91 L 96 92 L Oxygen Delivery Method 04/07/25 14:00 04/07/25 15:30 04/07/25 16:00 Temperature Temperature Source Pulse Rate 70 70 72 Pulse Rate [Left Radial] Respiratory Rate Blood Pressure Blood Pressure [Right Arm] Blood Pressure Mean [Right Arm] Blood Pressure Source Blood Pressure Position 02 Sat by Pulse Oximetry 96 98 97 Oxygen Delivery Method 04/07/25 16:30 04/07/25 16:55 04/07/25 16:57 Temperature 98.6 F Temperature Source Oral Pulse Rate 65 70 78 Pulse Rate [Left Radial] Respiratory Rate 16 Blood Pressure 122/80 122/80 Blood Pressure [Right Arm] Blood Pressure Mean [Right Arm] Blood Pressure Source Automatic Cuff Blood Pressure Position Supine 02 Sat by Pulse Oximetry 99 92 L Oxygen Delivery Method Room Air Lab Data Lab Results 04/07/25 12:43: WBC 6.3, RBC 5.02, Hgb 16.1, Hct 48.0 H, MCV 95.6, MCH 32.1 H, MCHC 33.5, RDW 14.8, Plt Count 173, MPV 9.7, Neut % (Auto) 59.3, Lymph % (Auto) 28.8, [place] % (Auto) 7.9, Eos % (Auto) 2.1, Baso % (Auto) 1.6, Neut # (Auto) 3.7, Lymph # (Auto) 1.8, [place] # (Auto) 0.5, Eos # (Auto) 0.1, Baso # (Auto) 0.1, PT 27.4 H, INR 2.65 H, Sodium 139, Potassium 4.7, Chloride 99, Carbon Dioxide 31 H, Anion Gap 13.7, BUN 18 H, Creatinine 0.80, Estimated Creat Clear 60, Estimated GFR 79, Est GFR ( Amer) 96, Glucose 104 H, Calcium 9.1, Total Bilirubin 1.0, AST 62 H, ALT 38, Alkaline Phosphatase 105, Total Creatine Kinase 56, Total Protein 8.8 H, Albumin 4.6, Globulin 4.2 H, Albumin/Globulin Ratio 1.1, Serum HCG, Qual Negative, Blood Type O Positive, Antibody Screen Negative Orders (Tests/Meds): ED MEDICATIONS Discontinued Medications Generic Name Dose Route Start Last Admin Trade Name Freq PRN Reason Stop Dose Admin Iopamidol 160 ml 04/07/25 14:39 04/07/25 14:47 Iopamidol-370 (76%);100ml Bottle IV 04/07/25 14:40 160 ml ONCE ONE Administration Iopamidol 30 ml 04/07/25 14:50 04/07/25 14:50 Iopamidol-370 (76%);100ml Bottle IV 04/07/25 14:51 30 ml ONCE ONE Administration Sodium Chloride 10 ml 04/07/25 14:39 04/07/25 14:49 Sodium Chloride 0.9% 10ml Syr (Rad Only) IV 04/07/25 14:40 10 ml ONCE ONE Administration Sodium Chloride 100 ml 04/07/25 14:39 04/07/25 14:49 0.9 % Sodium Chloride 50 Ml Vial IV 04/07/25 14:40 100 ml ONCE ONE Administration ORDERS Category Date Time Status Type and Screen Stat BBK 04/07/25 12:[address] angio abd/pel - TRAUMA Stat Cat Scan 04/07/25 11:[address] angio chest - dissection Stat Cat Scan 04/07/25 11:[address] angio head Stat Cat Scan 04/07/25 11:[address] angio neck Stat Cat Scan 04/07/25 11:[address] cervical spine wo con Stat Cat Scan 04/07/25 11:[address] head/brain wo con Stat Cat Scan 04/07/25 11:[address] lumbar spine wo con Stat Cat Scan 04/07/25 11:[address] thoracic spine wo con Stat Cat Scan 04/07/25 11:53 Completed CBC w/Auto Diff [Complete Blood Count Auto Diff] Stat Lab 04/07/25 12:43 Completed CK [Creatine Kinase] Stat Lab 04/07/25 12:43 Completed CMP [Comprehensive Metabolic Panel] Stat Lab 04/07/25 12:43 Completed HCG Qualitative, Serum Stat Lab 04/07/25 12:43 Completed INR [Prothrombin Time INR] Stat Lab 04/07/25 12:43 Completed Procedures <Donnie Whiting MD - Last Filed: 04/07/25 13:10> Miscellaneous Procedure Procedure Performed: Ultrasound-guided IV Indication difficult IV access Patient was placed in the supine position was prepped and draped in sterile fashion. 20-gauge 48 mm Angiocath was used with axial and long axis planes on the ultrasound under direct visual guidance. The tip of the needle was observed being inserted directly into the vein itself and catheter was advanced under direct guidance. No significant complications. Critical Care <JODY Martinez - Last Filed: 04/07/25 18:48> Critical Care Time Critical Care Time: No
--- NOTE | 2025-04-07 11:53 | CT_ITS ---
FINAL REPORT TECHNIQUE: NASCET technique utilized for stenosis evaluation. CLINICAL HISTORY: Fell 3 feet out of the window COMPARISON: None FINDINGS: There is a suboptimal contrast bolus, and the cervical arterial vessels are not well-opacified. There is marked venous contamination secondary to reflux into the right internal jugular vein. RIGHT CAROTID: The right carotid artery is obscured by venous contamination secondary to reflux in the right internal jugular vein. LEFT CAROTID: The left carotid artery is grossly unremarkable. VERTEBRALS: The vertebrals are patent. No significant stenosis is present. IMPRESSION: Extremely limited exam as described above, with poor visualization particularly of the right carotid artery. The left carotid artery and bilateral vertebral arteries are grossly unremarkable. Reviewed, Interpreted and Dictated by Viktor Josue MD Transcribed by Kierra Alva Authenticated and . [facility]
--- NOTE | 2025-04-07 11:53 | CT_ITS ---
FINAL REPORT TECHNIQUE: Axial images were obtained of the thoracic spine by computed tomography. Coronal and sagittal reconstruction process performed. This study was performed with techniques to keep radiation doses as low as reasonably achievable (ALARA). Individualized dose reduction techniques using automated exposure control or adjustment of mA and/or kV according to the patient's size were employed. CLINICAL HISTORY: Fell 3 feet out of the window COMPARISON: None FINDINGS: Thoracic vertebrae show normal height. There is slight limitation of image quality secondary to streak artifact from sternal wires and a pacemaker. Disc spaces are well-preserved. There is no malalignment. The facets are properly aligned. IMPRESSION: No acute bony abnormality identified. Reviewed, Interpreted and Dictated by Viktor Josue MD Transcribed by Kierra Alva Authenticated and [facility]
--- NOTE | 2025-04-07 11:53 | CT_ITS ---
FINAL REPORT TECHNIQUE: Axial images were obtained of the cervical spine by computed tomography. Coronal and sagittal reconstruction process performed. This study was performed with techniques to keep radiation doses as low as reasonably achievable (ALARA). Individualized dose reduction techniques using automated exposure control or adjustment of mA and/or kV according to the patient's size were employed. CLINICAL HISTORY: Fell 3 feet out of the window COMPARISON: None FINDINGS: Cervical vertebrae show normal height. There is mild reversal of the normal cervical lordosis. Mild anterior osteophytes are present at the C3-4 level. At the C5-6 level there is a broad-based disc protrusion which produces mild canal stenosis. There is no malalignment. The facets are properly aligned. IMPRESSION: No acute bony abnormality identified. Mild degenerative change at the C3-4 and C5-6 levels as described. Reviewed, Interpreted and Dictated by Viktor Josue MD Transcribed by Kierra Alva Authenticated and [facility]
--- NOTE | 2025-04-07 11:53 | CT_ITS ---
FINAL REPORT TECHNIQUE: Axial CT images were performed through the head. Coronal and sagittal reformatted images were submitted. This study was performed with techniques to keep radiation doses as low as reasonably achievable (ALARA). Individualized dose reduction techniques using automated exposure control or adjustment of mA and/or kV according to the patient's size were employed. CLINICAL HISTORY: Fell 3 feet out of the window COMPARISON: None FINDINGS: The ventricles are normal in size. There is no evidence of hemorrhage. There is no mass or edema identified. There is no abnormal extra-axial fluid seen. The sinuses are well aerated. The mastoid air cells are hypoplastic. IMPRESSION: No acute intracranial process. Reviewed, Interpreted and Dictated by Viktor Josue MD Transcribed by Kierra Alva Authenticated and [facility]
--- NOTE | 2025-04-07 11:53 | CT_ITS ---
FINAL REPORT TECHNIQUE: Pre-and postcontrast images of the abdomen and pelvis were performed by computed tomography. Extensive 3-D reconstruction images were performed. A CTA was performed. This study was performed with techniques to keep radiation doses as low as reasonably achievable (ALARA). Individualized dose reduction techniques using automated exposure control or adjustment of mA and/or kV according to the patient's size were employed. CLINICAL HISTORY: Fell 3 feet out of the window COMPARISON: None FINDINGS: ABDOMEN: Scar versus atelectasis is noted in the lung bases. There is poor opacification of the abdomen and pelvis secondary to a suboptimal bolus. The aorta and iliac vessels appear patent as well. No adrenal masses are identified. The spleen and pancreas are unremarkable. There is moderate fatty infiltration of the liver present. The uterus is present. The bladder is unremarkable in appearance. The ureters appear unremarkable bilaterally. No convincing evidence of retroperitoneal hemorrhage is identified. CTA: There is poor opacification of the abdomen and pelvis secondary to a suboptimal bolus. Specific stenoses in the aorta, mesenteric and renal vessels cannot be accurately identified, although these vessels appear patent. The aorta and iliac vessels appear patent as well. IMPRESSION: Exam markedly limited secondary to a suboptimal contrast bolus. No gross vascular abnormalities are identified. Fatty infiltration of the liver is present. Reviewed, Interpreted and Dictated by Viktor Josue MD Transcribed by Kierra Alva Authenticated and [facility]
--- NOTE | 2025-04-07 11:53 | CT_ITS ---
FINAL REPORT TECHNIQUE: The patient was injected with IV contrast. Axial images were obtained through the chest in a PE protocol. 3-D reconstruction images were also performed. Individualized dose reduction techniques using automated exposure control or adjustment of the MA and/or KV according to patient's size were employed. CLINICAL HISTORY: Fell 3 feet out of the window COMPARISON: None FINDINGS: There is a suboptimal contrast bolus as well as streak artifact secondary to a pacemaker and mediastinal wires. Pulmonary emboli cannot be excluded, nor can aortic dissection. There is no axillary adenopathy. There is no hilar or mediastinal adenopathy. The heart size is normal. There is no pericardial or pleural effusion. Scar versus atelectasis is noted in the lung bases. IMPRESSION: Extremely limited exam secondary to a very suboptimal contrast bolus. Pulmonary emboli cannot be excluded, nor can aortic dissection. Reviewed, Interpreted and Dictated by Viktor Josue MD Transcribed by Kierra Alva Authenticated and [facility]
--- NOTE | 2025-04-07 11:53 | CT_ITS ---
FINAL REPORT TECHNIQUE: thin section axial CT with and without IV contrast supplemented with multiplanar 3-D reconstruction of the head. This study was performed with techniques to keep radiation doses as low as reasonably achievable, (ALARA)individualized dose reduction techniques using automated exposure control or adjustment of mA and/or kV according to the patient's size were employed. CLINICAL HISTORY: Fell 3 feet out of the window COMPARISON: None FINDINGS: HEAD CT: The ventricles are normal in size. There is no evidence of hemorrhage. No masses are identified. No extra-axial fluid is seen. The mastoid air cells are hypoplastic. CTA: The cranial circulation is not well-opacified. There is no significant stenosis, aneurysm or occlusion. IMPRESSION: No acute process. Reviewed, Interpreted and Dictated by Viktor Josue MD Transcribed by Kierra Alva Authenticated and [facility]
--- NOTE | 2025-04-07 11:53 | CT_ITS ---
FINAL REPORT TECHNIQUE: Axial imaging of the lumbar spine was obtained without contrast. Reformatted images were also obtained and reviewed.This study was performed with techniques to keep radiation doses as low as reasonably achievable, (ALARA). Individualized dose reduction techniques using automated exposure control or adjustment of mA and/or kV according to the patient's size were employed. CLINICAL HISTORY: Fell 3 feet out of the window FINDINGS: There is no acute fracture or subluxation. The vertebra are normal height. There is mild degenerative disc disease. There is no malalignment. Facets are properly aligned. Prevertebral soft tissues unremarkable. IMPRESSION: No acute bony abnormality. Reviewed, Interpreted and Dictated by Viktor Josue MD Transcribed by Janee Pires Authenticated and [facility]
--- NOTE | 2025-04-07 11:53 | PC.NURSE ---
Received report from LEIGHA Ashton
--- NOTE | 2025-04-07 12:20 | PC.NURSE ---
Lab contacted for Type and screen.
--- NOTE | 2025-04-07 12:49 | PC.NURSE ---
[employer] LEIGHA BROWN attempted IV. Labs were obtained. Unable to advance IV cath. MD Henok notified of US IV.
[2025-04-07 12:57] LABS: Hematocrit 48.0 % (37.0-47.0); Hemoglobin 16.1 g/dL (12.2-16.2); Immature Granulocytes % 0.3 %; Mean Corpuscular HGB Conc 33.5 g/dL (31.8-35.4); Mean Corpuscular Hemoglobin 32.1 pg (27.0-31.2); Mean Corpuscular Volume 95.6 fl (81-99); Nucleated Red Blood Cells % 0 %; Platelet Count 173 K/mm3 (142-424); Red Blood Count 5.02 M/mm3 (4.20-5.40); Red Cell Distribution Width-SD 52.5 fL; White Blood Count 6.3 K/mm3 (4.8-10.8)
--- NOTE | 2025-04-07 13:00 | PC.NURSE ---
Provider at bedside attempting US IV.
[2025-04-07 13:10] LABS: INR 2.65 (0.9-1.1); Prothrombin Time 27.4 seconds (10.1-12.5)
[2025-04-07 13:12] LABS: Alanine Aminotransferase 38 U/L (12-78); Albumin Level 4.6 g/dl (3.5-5.0); Albumin/Globulin Ratio 1.1 (1.1-1.8); Alkaline Phosphatase 105 U/L (38-126); Anion Gap 13.7 mEq/L (5-15); Aspartate Amino Transferase 62 U/L (14-36); Bilirubin,Total 1.0 mg/dl (0.2-1.3); Blood Urea Nitrogen 18 mg/dl (7-17); Calcium 9.1 mg/dl (8.4-10.2); Carbon Dioxide 31 mmol/L (22.0-30.0); Chloride 99 mmol/L (98-107); Creatine Kinase 56 U/L (30-135); Creatinine Clearance Estimated 60 mL/min (50-200); Creatinine,Serum 0.80 mg/dl (0.52-1.04); Estimated Glomerular Filt Rate 79 ml/min (>60); GFR (African American) 96 ML/MIN (>60); Globulin 4.2 g/dL (1.3-3.2); Glucose 104 mg/dl (74-100); Potassium 4.7 mmoL/L (3.5-5.1); Sodium 139 mmol/L (136-145); Total Protein,Serum 8.8 g/dl (6.3-8.2)
[2025-04-07 14:04] LABS: HCG Qualitative, Serum Negative (Negative)
[2025-04-07] MEDS: IOPAMIDOL-370 (76%);100ML BOTTLE 160 ML IV (14:47)
[2025-04-07] MEDS: SODIUM CHLORIDE 0.9% 10ML SYR (RAD ONLY) 10 ML IV (14:49)
[2025-04-07] MEDS: 0.9 % SODIUM CHLORIDE 50 ML VIAL 100 ML IV (14:49)
[2025-04-07] MEDS: IOPAMIDOL-370 (76%);100ML BOTTLE 30 ML IV (14:50)
== END 2025-04-07 16:58 | disposition home or self-care (01) ==
PROVIDERS: Physician Assistant; Emergency Provider Student in an Organized Health Care Education/Training Program; PCP Family Medicine
DX: S50.12XA Contusion of left forearm, initial encounter (principal); R79.1 Abnormal coagulation profile; W13.4XXA Fall from, out of or through window, initial encounter
CPT/HCPCS: 70450; 70496; 70498; 71275; 72125; 72128; 72131; 74174; 80053; 82550; 84703; 85025; 85610; 86850; 99285; Q9967

== ENCOUNTER 2025-05-18 13:45 | Outpatient (CLI) | payer MEDICARE, OTHER, SELFPAY ==
--- OUTSIDE RECORDS SUMMARY | 2025-05-18 11:25 | XMS_ITS | Encounter Summary ---
Author Organization Healthcare Address [address] [id number] Care Team Providers Care Working Second Hand Name Role Phone Espinoza Thakur MD Primary Care Provider [phone] Encounter Details Date Type Department Care Team (Late st Contact Info) Description 05/18/2025 11:25 AM EDT Hospital Encounter Cardiac Imaging [address] [place] [address] Pacemaker Social History Tobacco Use Types Packs/Day Years [...] AM EDT Appointment Cardiac Imaging [address] [place] [address] 06/19/2025 11:40 AM EDT Office Visit [facility] [place] [address] [facility] [place] [address] Jordon Tidwell MD [address] [place] [address] 06/29/2025 1:00 PM EDT Office Visit [facility] Audiology [address], [address] [place] [address] Sharona Pang, PhD [address] [place] [address] 06/29/2025 1:45 PM EDT Consult [facility] Otolaryngology [address], [address] [place] [address] Jesse Moffett MD [address] [facility] [address] [place] [address] 08/21/2025 11:40 AM EST Office Visit [facility] Sleep Disorder Center [address] [place] [address] Polina Granados MD [address] [facility] [address] [place] [address] 09/10/2025 1:00 PM EST Office Visit [facility] [place] [address] [facility] [place] [address] Tanja Parsons MD [address] [place] [address] 09/28/2025 11:30 AM EST Appointment [facility] Breast [facility] [address] [place] [address] 01/25/2026 10:30 AM EDT Office Visit [facility] Medicine Specialties [address] [place] [address] Emi Orozco PA [address] [place] [address] Pending Results Name Type Priority Associated Diagnoses Date /Time Cardiac Device Check - Remote Implantable Cardiac Device Routine Pacemaker 05/18/2025 11:49 AM EDT Scheduled Orders Name Type Priority Associated Diagnoses Order Schedule Cardiac Device Check - Remote Implantable Cardiac Device Routine Pacemaker Once for 1 Occurrences starting 05/18/2025 until 05/18/2025 documented as of this encounter Visit Diagnoses Diagnosis Pacemaker Cardiac pacemaker in situ documented in this encounter Additional Health Concerns Assessment Noted Time PHQ-9 Depression Total Score: 0 03/12/20 25 12:39 PM EDT A fall risk assessment has been complete d for the patient 03/12/2025 12:39 PM EDT A Body Mass Index follow-up plan has been documented for the patient 03/12/2025 1:11 PM EDT documented as of this encounter Care Teams Working Second Hand Relationship Specialty Start Date End Date Espinoza Thakur MD [address] [place] [address] [address]1 [place] [address] PCP - General 02/11/21 documented as of this encounter
--- OUTSIDE RECORDS SUMMARY | 2025-05-18 13:49 | XMS_ITS | Clinical Summary ---
Author Organization [facility] Address [address] [place] [address] Care Team Providers Care Refinish Technician Name Role Phone Unavailable Primary Care Provider Unavailabl e Social History Tobacco Use Types Packs/Day Years Used Date Smoking Tobacco: Never Assessed Abuse Screen Answer Date Recorded Unsafe at Home or Work/School Not on file Feels Threatened by Someone? Not on file 07/2023 Does Anyone Keep You from Co ntacting Others or Doint Things Outside the Home? Not on file 07/10/2023 Physical Sign of Abuse Present Not on file 1 Housing Stability Answer Date Recorded Current Living Arrangements Not on file 07/01 Potentially Unsafe Housing Conditions Not on salma e 07/10/2023 Family and Community Support Answer Wallace e Recorded Help with Day-to-Day Activities Not on file 07/10/2023 Lonely or Isolated Not on file 07/10/2023 Employment Answer Date Recorded Do you want help finding or keeping work or a jean carlos b? Not on file 07/10/2023 Disabilities Answer Date Recorded Concentrating, Remembering, or Making Decisions Difficulty Not on file 07/10/2023 Doing Errands Independently Difficulty Not on fi le 07/10/2023 Education Answer Date Recorded Help with school or training? Not on file Preferred Language Not on file 07/10/2023 Comments Unknown Sex and Gender Information Value Date Recorded Sex Assigned at Not on file Legal Sex Female 1:42 PM EDT Gender Identity Not on file Sexual Orientation Not on file Plan of Treatment Health Maintenance Due Date Last Done Comments ANNUAL PHYSICAL 1985 Annual Gynecologic Pelvic an d Breast Exam 1985 HEPATITIS C SCREENING 1983 TDAP/TD VACCINES (1 - Tdap) 2002 MAMMOGRAM 2023 COVID-19 Vaccine (2023-2 5 season) 2024 INFLUENZA VACCINE 07/01/2025 Pneumococcal Vaccine 0-49 Aged Out No longer eligible based on patient's age to complete this topic
--- OUTSIDE RECORDS SUMMARY | 2025-05-18 13:49 | XMS_ITS | Encounter Summary ---
Author Organization Healthcare Address [address] [place] [address] Care Team Providers Care Rigger Name Role Phone Espinoza Thakur MD Primary Care Provider [phone] Encounter Details Date Type Department Care Team (Late st Contact Info) Description 05/11/2025 Telephone [facility] Otol[facility]ology [address], [address] [place] [address] Jesse Moffett MD [address] [place] [address] Social History Tobacco Use Types Packs/Day Years [...] AM EDT Appointment Cardiac Imaging [address] [place] [id number] 06/19/2025 11:40 AM EDT Office Visit [facility] [place] [address] [place] [address] Jordon Tidwell MD [address] [place] [address] 06/29/2025 1:00 PM EDT Office Visit [facility] Audiology [address], [address]rd [place] [address] Sharona Pang, PhD [address] [place] [address] 06/29/2025 1:45 PM EDT Consult [facility] Otolaryngology [address], [address]rd [place] [address] Jesse Moffett MD [address] [facility] [address] [place] [address] 08/21/2025 11:40 AM EST Office Visit [facility] Sleep Disorder Center [address] [place] [address] Polina Granados MD [address] [facility] [address] [place] [address] 09/10/2025 1:00 PM EST Office Visit [facility] [place] [address] [facility]. [address] [place] [address] Tanja Parsons MD [address] [place] [address] 09/28/2025 11:30 AM EST Appointment [facility] Breast Care Center [facility] [address] [place] [address] 01/25/2026 10:30 AM EDT Office Visit [facility] Medicine Specialties [address], [address] [place] [address] Emi Orozco, PA [address] [place] [address] documented as of this encounter Visit Diagnoses [...] documented as of this encounter Care Teams Rigger Relationship Specialty Start Date End Date Espinoza Thakur MD [address] [place] [address] [address]1 [address]1 [place] [address] PCP - General 02/11/21 documented as of this encounter
--- OUTSIDE RECORDS SUMMARY | 2025-05-18 13:50 | XMS_ITS | Clinical Summary ---
Author Organization Healthcare Address [address] [id number] Care Team Providers Care Vocational Rehabilitation Administrator Name Role Phone Espinoza Thakur MD Primary Care Provider [phone] Allergies Active Allergy Reactions Criticality Noted Date [...] life of cardi ac resynchronization therapy pacemaker (HEALTH UNIT CLERK-P) 04/22/2021 Overview (04/22/2021): Added automatically from request for surgery [id number] Hypothyroidism 12/09/2020 Status post mitral valve replacement [...] (04/22/2021): Added automatically from request for surgery [id number] Weight loss counseling, encounter for 12/09/2020 05/03/2021 Weight gain 12/09/2020 05/03/2021 Obesity, Class III, BMI 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 (morbid obesity) 12/09/2020 05/03/2021 Transfusion history 02/27/2019 05/03/20 Abnormal CXR 12/17/2018 05/03/2021 Hypoxemia 02/18/2013 05/03/2021 Encounters Date Type Department Care Team Description 05/18/2025 11:25 AM EDT Hospital Encounter Cardiac Imaging [address] [place] [address] Pacemaker 05/18/2025 Travel 05/11/2025 Telephone [facility] Otolaryngology [address] [place] [address] Jesse Moffett MD 05/08/2025 Telephone [facility] Otolaryngology [address], [address] [place] [address] Jesse Moffett MD 05/01/2025 Telephone [facility] Vascular [facility] [address] [place] [address] Jordon Tidwell MD 03/12/2025 12:40 PM EDT Office Visit [facility] Vascular [facility] [address] [place] [address] Tanja Parsons MD Atrial fibrillation, unspecified type (CMS/HCC) (Primary Dx); Pacemaker complications, initial encounter 03/12/2025 Travel 02/19/2025 11:40 AM EDT Office Visit [facility] Sleep Disorder Center [address] 4th [place] [address] Polina Granados MD KALEIGH (obstructive sleep apnea) (Primary Dx) 02/19/2025 Travel 02/17/2025 8:50 AM EDT - 02/17/2025 11:59 PM EDT Hospital Encounter Cardiac Imaging [address] [place] [address] Biventricular pacemaker check Discharge Disposition: Home or Self Care 02/17/2025 Travel from Last 3 Months Immunizations Immunization Administration Dates Next Due Hep A, Adult 09/11/2018 Influenza, seasonal, injectable, preservative fr ee 06/25/2024 [place] COVID-19 Vaccine (Purple Cap) 12 + 11/25/2020,11/03/2020 [...] AM EDT Appointment Cardiac Imaging [address] [place] [address] 06/19/2025 11:40 AM EDT Office Visit [facility] [place] [address] [place] [address] Jordon Tidwell MD [address] [place] [place] [address] 06/29/2025 1:00 PM EDT Office Visit [facility] Audiology [address], [address] [place] [address] Sharona Pang, PhD [address] [place] [address] 06/29/2025 1:45 PM EDT Consult [facility] Otolaryngology [address], [address] [place] [address] Jesse Moffett MD [address] [place] [address] 08/21/2025 11:40 AM EST Office [facility] Sleep Disorder Center [address] [place] [address] Polina Granados MD [address] [place] [address] 09/10/2025 1:00 PM EST Office Visit [facility] [place] [address] [facility] [place] [address] Tanja Parsons MD [address] [place] [address] 09/28/2025 11:30 AM EST Appointment [facility] Breast Care Center Comprehensive [facility] [address] [place] [address] 01/25/2026 10:30 AM EDT Office Visit [facility] Medicine Specialties [address] [place] [address] Emi Orozco PA [address] [place] [address] Health Maintenance Due Date Last Done Comments [facility]-HIV Screening 1983 [facility]-Hepatitis C Screening 1983 [facility]-Medicare Annual Wellness (AWV) 1983 [facility]-Infant/Child/Adol SDOH Screenings 1983 [facility]-Varicella Vaccines (1 of 2 - 13+ 2-dose series) 1996 [facility]- SDOH Screenings 2001 [facility]-Adult SDOH Screenings 2001 [facility]-DTaP,Tdap,and Td Vaccines (1 - Tdap) 2002 [facility]-Hepatitis B Vaccines (1 of 3 - 19+ 3-dose series) 2002 [facility]-Pneumococcal Vaccine: Pediatrics (0 to 5 Years) and At-Risk Patients (6 to 49 Years) (1 of 2 - PCV) 2002 [facility]-Pap Smear 2004 HPV Vaccines (1 - 3-dose SCDM series) 2010 [facility]-Cervical Cancer Screening 2013 [facility]-HPV/Cotest 2013 [id number]-99 Vaccine ( season) 2024 06/01/2022, 07/28/2021, 11/25/2020, [...] this topic Medical Devices Implanted Type Area Beverage Steward Device Identifier Shelf Expiration Date Model / Serial / Lot [id number] Quickflex Xl [id number] Lead [id number] QUICKFLEX XL / [id number] / [id number] Tendril Sts [id number] Lead 8TC TEND RIL STS / [id number] / 8tc Tendril Sts [id number] Lead [id number] TEND RIL STS / [id number] / Pacemaker Allure Bi Vent - [id number] Implanted:Qty: 1 on 05/03/2021 by Tanja Parsons MD at [facility] [id number] 05/31/2021 [id number] / [id number] / [id number] Procedures Procedure Name Priority Date/Time Associated Diagnosis Comments CARDIAC DEVICE CHECK - REMOTE - PACEMAKER Routine 02/17/2025 12:14 PM EDT Biventricular pacemaker check from Last 3 Months Results * CARDIAC DEVICE CHECK - REMOTE - PACEMAKER (02/17/2025 12:14 PM EDT) Anatomical Region Laterality Modality Other Narrative 02/17/2025 12:46 PM EDT [facility] EP - Device Clinic Remote CIED Report Name: Sharona Kinney Daniel Date: 02/17/2025 : 1985 Age: [...] data. See Media for full report. Suellen Cazares MECHANICAL CAD DRAFTER CV IMPLANTABLE CARDIAC DEV ICE PROCEDURES Final Result from Last 3 Months Insurance [place] [id number] MEDICARE [facility] Advance Directives * Full Code (Latest Code Status on File) Date Activated Date Inactivated Comments 05/17/2021 5:32 PM 05/18/2021 4:30 PM Question Answer Comments Patient has decision-making capacity? Yes Care Teams Vocational Rehabilitation Administrator Relationship Specialty Start Date End Date Espinoza Thakur MD [address] [place] [address] #1 #1 [place] [address] PCP - General 02/11/21
--- OUTSIDE RECORDS SUMMARY | 2025-05-18 13:50 | XMS_ITS | Encounter Summary ---
Author Organization Healthcare Address [address] [place] [address] Care Team Providers Care Truck Repair Supervisor Name Role Phone Espinoza Thakur MD Primary Care Provider [phone] Encounter Details Date Type Department Care Team (Late st Contact Info) Description 05/08/2025 Telephone [facility] Otol[facility]ology [address], [address] [place] [address] Jesse Moffett MD [address] [place] [address] Social History Tobacco Use Types [...] AM EDT Appointment Cardiac Imaging [address] [place] [address] 06/19/2025 11:40 AM EDT Office Visit [facility] [place] [address] [place] [address] Jordon Tidwell MD [address] [place] [address] 06/29/2025 1:00 PM EDT Office Visit [facility] Audiology [address], [address] [place] [address] Sharona Pang, PhD [address] [place] [address] 06/29/2025 1:45 PM EDT Consult [facility] Otolaryngology [address], [address] [place] [address] Jesse Moffett MD [address] [facility] [address] [place] [address] 08/21/2025 11:40 AM EST Office Visit [facility] Sleep Disorder Center [address] [place] [address] Polina Granados MD [address] [facility] [address] [place] [address] 09/10/2025 1:00 PM EST Office Visit [facility] [place] [address] [facility]. [address] [place] [address] Tanja Parsons MD [address] [place] [address] 09/28/2025 11:30 AM EST Appointment [facility] Breast Care Center [facility] [address] Building [address] [place] [address] 01/25/2026 10:30 AM EDT Office Visit [facility] Medicine Specialties [address] 2[address] [place] [address] Emi Orozco, PA [address] [place] [address] documented as of this encounter Visit Diagnoses [...] documented as of this encounter Care Teams Truck Repair Supervisor Relationship Specialty Start Date End Date Espinoza Thakur MD [address] [place] [address] [address] [place] [address] PCP - General 02/11/21 documented as of this encounter
--- OUTSIDE RECORDS SUMMARY | 2025-05-18 13:50 | XMS_ITS | Encounter Summary ---
Author Organization Healthcare Address [address] [place] [address] Care Team Providers Care Hat Body Sorter Name Role Phone Espinoza Thakur MD Primary Care Provider [phone] Encounter Details Date Type Department Care Team (Latest Contact Info) Description 05/18/2025 Travel Social History Tobacco Use Types Packs/Day [...] EDT Appointment Cardiac Imaging [address] [place] [address] 06/19/2025 11:40 AM EDT Office Visit [facility] [place] [address] [facility]. [address] [place] [address] Jordon Tidwell MD [address] [place] [address] 06/29/2025 1:00 PM EDT Office Visit [facility] Audiology [address] [place] [address] Sharona Pang, PhD [address] [facility] [address] [place] [address] 06/29/2025 1:45 PM EDT Consult [facility] Otol[facility]ology [address] [place] [address] Jesse Moffett MD [address] [facility] [address] [place] [address] 08/21/2025 11:40 AM EST Office Visit [facility] Sleep Disorder Center [address] [place] [address] Polina Granados MD [address] [facility] [address] [place] [address] 09/10/2025 1:00 PM EST Office Visit [facility] [place] [address] [facility]. [address] [place] [address] Tanja Parsons MD [address] [place] [address] 09/28/2025 11:30 AM EST Appointment [facility] Breast Care Center [facility] [address] [place] [address] 01/25/2026 10:30 AM EDT [facility] Medicine Specialties [address] [place] [address] Emi Orozco PA [address] [place] [address] documented as of this encounter Visit Diagnoses Not on filedocumented in this encounter Additional Health Concerns Assessment Noted Time PHQ-9 Depression Total Score: 0 06/12/20 25 12:39 PM EDT A fall risk assessment has been complete d for the patient 03/12/2025 12:39 PM EDT A Body Mass Index follow-up plan has been documented for the patient 03/12/2025 1:11 PM EDT documented as of this encounter Care Teams Hat Body Sorter Relationship Specialty Start Date End Date Espinoza Thakur MD [address] [place] [address] [address] [place] [address] PCP - General 02/11/21 documented as of this encounter
--- OUTSIDE RECORDS SUMMARY | 2025-05-18 13:50 | XMS_ITS | Encounter Summary ---
Author Organization Healthcare Address [address] [place] [address] Care Team Providers Care Wire Temperer Name Role Phone Espinoza Thakur MD Primary Care Provider [phone] Encounter Details Date Type Department Care Team (Late st Contact Info) Description 05/01/2025 Telephone [facility] [place] [address] [facility] [place] [address] Jordon Tidwell MD [address] [place] [address] Social History Tobacco Use Types Packs/Day Years [...] on file documented as of this encounter Miscellaneous Notes * Telephone Encounter - Dannielle Mayer - 05/01/2025 11:54 AM EDT Clinical Concern/Question Reason for Call: PT's sister calling to request ref for [facility]. Please call to discuss Best contact number: Other: [phone] Optimal time of day to reach caller: ANYTIME Additional comments/information from caller: None Note: Please do not reply to this message. Follow-up communication and further actions as a result of this message need to be communicated with the patient directly, if the patient is not active onMyChart. If the patient is active on MyChart, they will receive notification of the communication/outcome via MyChart. documented in this encounter Plan of Treatment Upcoming Encounters Date Type Department Care Team (Late st Contact Info) Description 06/19/2025 9:30 AM EDT Appointment Cardiac Imaging [address] [place] [address] 06/19/2025 11:40 AM EDT Office Visit [facility] [place] [address] [place] [address] Jordon Tidwell MD [address] [place] [address] 06/29/2025 1:00 PM EDT Office Visit [facility] Audiology [address] [place] [address] Sharona Pang, PhD [address] [facility] [address] [place] [address] 06/29/2025 1:45 PM EDT Consult [facility] Otolaryngology [address] 3[address] [place] [address] Jesse Moffett MD [address] [facility] [address] [place] [address] 08/21/2025 11:40 AM EST Office Visit [facility] Sleep Disorder Center [address] 4th [place] [address] Polina Granados MD [address] [facility] [address] [place] [address] 09/10/2025 1:00 PM EST Office Visit [facility] [place] [address] [place] [address] Tanja Parsons MD [address] [place] [address] 09/28/2025 11:30 AM EST Appointment [facility] [address] [place] [address] 01/25/2026 10:30 AM EDT Office [facility] Medicine Specialties [address] [place] [address] Emi Orozco PA [address] [place] [address] documented as of this encounter [...] documented as of this encounter Care Teams Wire Temperer Relationship Specialty Start Date End Date Espinoza Thakur MD [address] [place] [address] [address] [place] [address] PCP - General 02/11/21 documented as of this encounter
[2025-05-18 14:27] LABS: Potassium 4.2 mmoL/L (3.5-5.1)
== END 2025-05-18 23:59 | disposition home or self-care (01) ==
PROVIDERS: PCP Family Medicine; Visit Provider Family Medicine
DX: E87.6 Hypokalemia (principal)
CPT/HCPCS: 36415; 84132

== ENCOUNTER 2025-07-28 12:24 | Outpatient (CLI) | payer MEDICARE, OTHER, SELFPAY ==
--- OUTSIDE RECORDS SUMMARY | 2025-06-19 09:11 | XMS_ITS | Encounter Summary ---
Author Organization Healthcare Address [address] 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 Procedures Echo, Adult Congenital Transthoracic (TTE) Complete Shani Botello APRN [address] [place] [address] Phone: tel: fax: Referral ID Status Reason Start Date Expiration Date V isits Requested Visits Authorized [id number] Closed Perform Procedure 06/13/2024 12/13/2025 1 1 Reason for Visit * Imaging (Routine) - Closed Specialty Diagnoses / Procedures Referred By Neema burger Referred To Contact Cardiology Diagnoses Atrioventricular canal H/O mitral valve replacement with mechanical valve 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 Procedures Echo, Adult Congenital Transthoracic (TTE) Complete Shani Botello APRN [address] [place] [address] Phone: tel: fax: Referral ID Status Reason Start Date Expiration Date V isits Requested Visits Authorized [id number] Closed Perform Procedure 06/13/2024 12/13/2025 1 1 Encounter Details Date Type Department Care Team (Latest Contact Info) Description 06/19/2025 9:11 AM EDT - 06/19/2025 11:59 PM EDT Hospital Encounter Cardiac Imaging [address] [place] [address] Atrioventricular canal; H/O mitral valve replacement with mechanical valve; 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 Discharge Disposition: Home or Self Care Social History Tobacco Use Types Packs/Day Years Used Date Smoking Tobacco: Never Passive Smoke Exposure: Never Smokeless Tobacco: Never Alcohol Use Standard Drinks/Week Comments No 0 (1 standard drink = 0.6 oz pure alcohol) Alcoholic Drinks/day: Never Drank Alcohol PHQ-2 Answer Date Recorded Patient Health Questionnaire-2 Score 0 06/19/2025 PHQ-9 Answer Date Recorded Patient Health Questionnaire-9 Score 0 06/19/2025 PHQ-2A Answer Date Recorded Depression Risk 0 07/28/2024 Comments No Sex and Gender Information Value Date Recorded Sex Assigned at Not on file Legal Sex Female 8:49 PM EDT Gender Identity Not on file Sexual Orientation Not on file documented as of this encounter Last Filed Vital Signs Vital Sign Reading Time Taken Comments Blood Pressure 104/72 06/19/2025 9:38 AM EDT Pulse 70 06/19/2025 9:38 AM EDT Temperature - - Respiratory Rate - - Oxygen Saturation - - Inhaled Oxygen Concentration - - Weight 100 kg (221 lb) 06/19/2025 9:38 AM EDT Height 152.4 cm (5') 06/19/2025 9:38 AM EDT Body Mass Index 43.16 06/19/2025 9:38 AM EDT documented in this encounter Functional Status * Over the past 2 weeks, how often have you been bothered by any of the following problems? Question Answer Date of Assessment Author Little interest or pleasure in doing things Not at all 06/19/2025 9:52 AM EDT Ashley Varma Feeling down, depressed, or hopeless Not at all 06/19/2025 9:52 AM EDT Ashley Varma Patient Health Questionnaire -2 Score 0 06/19/2025 9:52 AM EDT Ashley Varma * Question Answer Date of Assessment Author Trouble falling or staying asleep, or sleeping too much Not at all 06/19/2025 9:52 AM EDT Ashley James Feeling tired or having ab le energy Not at all 06/19/2025 9:52 AM EDT Ashley Varma Poor appetite or overeating Not at all 06/19/2025 9: 52 AM Ashley Ha Feeling bad about yourself - or that you are a failure or have let yourself or your family down Not at all 06/19/2025 9:52 AM Ashley Salinas Trouble concentrating on thi ngs, such as reading the newspaper or watching television Not at all 06/19/2025 9:52 AM Ashley Ha Moving or speaking so slowly that other people could have noticed? Or the opposite - being so fidgety or restless that you have been moving around a lot more than usual. Not at all 06/19/2025 9:52 AM Ashley Ha Thoughts that you would be better off or hurting yourself in some way Not at all 06/19/2025 9:52 AM Ashley Ha Patient Health Questionnaire -9 Score 0 06/19/2025 9:52 AM Ashley Ha * How difficult have these problems made it for you to do your work, take care of things at home, or get along with other people? Answer Date of Assessment Author Not difficult at all 06/19/2025 9:52 AM Ashley Salinas documented as of this encounter Medications at [...] (one) time each day before breakfast. 10/26/2012 montelukast (Singulair) 10 MG tablet Take 1 [...] Care Team (Late st Contact Info) Description 08/21/2025 11:40 AM EST Office Visit [facility] Sleep Disorder Center [address] [place] [address] Lavern Galdamez APRN [address] [place] [address] 09/10/2025 1:00 PM EST Office Visit [facility] [place] [address] [facility] [place] [address] Tanja Parsons MD [address] [place] [address] 09/25/2025 1:00 PM EST Office Visit [facility] Otolaryngology [address] [place] [address] Jesse Moffett MD [address] [place] [address] 09/28/2025 11:30 AM EST Appointment [facility] [address] [place] [address] 02/08/2026 12:30 PM EDT Office Visit [facility] Medicine Specialties [address] [place] [address] Emi Orozco PA [address] [place] [address] 02/10/2026 12:20 PM EDT Office Visit [facility] Women's Health [address], [address] [place] [address] Hannah Tang MD [address] [place] [address] 2026 1:00 PM EDT Appointment Cardiac Imaging [address] [place] [address] 2026 2:40 PM EDT Office Visit [facility] [place] [address] 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 documented in this encounter Results * ECHO, ADULT CONGENITAL TRANSTHORACIC COMPLETE (06/19/2025 9:48 AM EDT) BSA 1.95 m2 RANJAN ISCV Height 152.4 [facility]AN ISC[facility] Weight 100.2 [facility]AN ISC[facility] TR Vmax 271.0 cm/s RANJAN ISCV RV s' José Miguel 8.7 cm/s [facility]ANJAN ISCV TAPSE 14 mm RANJAN ISCV TR Max PG 29 mmHG RANJAN ISCV MV V2 VTI 39.6 cm RANJAN ISCV MV MG 6 mmHg RANJAN ISCV MV V2 max 213.8 cm/s RANJAN ISCV MV max PG 18 mmHg RANJAN ISCV TV V2 Vmax 180.9 cm/s RANJAN ISCV TV MG 5 mmHg RANJAN ISCV TV max PG 13 mmHg RANJAN ISCV TV V2 VTI 45.6 cm RANJAN ISCV RVSP 37 mmHg RANJAN ISCV RAP systole 8 mmHg RANJAN ISCV RA MOD 4Ch 32 mL RANJAN ISCV KARLA 16 mL/m2 RANJAN ISCV LVIDd 36 mm RANJAN ISCV IVSd 9 mm RANJAN ISCV LVPWd 9 mm RANJAN ISCV LV MASS(C)D 92 g RANJAN ISCV LV RWT 0.50 mm RANJAN ISCV [facility] CV ECHO LV MASS INDEX 47 g/m2 RANJAN ISCV LVIDs 24 mm RANJAN ISCV RV KARLA 24.0 cm2 RANJAN ISCV RV RAÚL 15.0 cm2 RANJAN ISCV RV FAC_phl 38 % RANJAN ISCV IVC Max Size 25 mm RANJAN ISCV RV base 42 mm RANJAN ISCV RV Mid 36 mm RANJAN ISCV Ao Root Diam 29 mm RANJAN ISCV Anatomical Region Laterality Modality Echocardiography Narrative 06/19/2025 10:33 AM EDT Left Ventricle: The left ventricular systolic function is normal. The LVEF is visually estimated at 40 - 50%. Right Ventricle: The right ventricular systolic function is normal. The estimated right ventricular systolic pressure is 37 mmHg. Right ventricular systolic pressure is mildly elevated (35-50mmHg). Atrioventricular Valve: The right AV valve: There is an annuloplasty ring around the right AV valve. Mild to moderate right AV valve regurgitation. The right AV valve mean gradient is 5 mmHg at a heart rate of 70 bpm. The gradient is elevated for this prosthetic valve due to regurgitation. The left AV valve: There is a [address] Elijah mechanical valve that is well-seated. Doppler evidence of regurgitation is normal for this prosthetic left AV valve. The left AV valve mean gradient is 6 mmHg at a heart rate of 72 bpm. The gradient is normal for this prosthetic valve. Pericardium: No pericardial effusion. Compared to the most recently available prior study, and allowing for differences in image quality and technique, there is no significant interval change noted. History: Trisomy 21, Type A Atrioventricular Canal, s/p AVC repair (02/02/87, [facility], [place]), s/p 27mm [facility]. Elijah left AVV [...] the left ventricle is mildly dilated in size. There is normal left ventricular myocardial thickness and mass. The left ventricular systolic function is mildly reduced. The LVEF is visually estimated at 40 - 50%. Compared to the most recently available prior study, and allowing for differences in image quality and technique, there is no significant interval change noted. IVC SVC - Congenital Based on the IVC size and respiratory variation, the estimated right atrial pressure is 8mmHg. Right Atrium - Congenital The right atrial volume index is normal (<30mL/m2). There is a catheter/lead present in the right atrium. Atrioventricular Valve - Congenital There are separate right and left AV valves. The right AV valve: There is an annuloplasty ring around the right AV valve. Mild to moderate right AV valve regurgitation. The right AV valve mean gradient is 5 mmHg at a heart rate of 70 bpm. The gradient is elevated for this prosthetic valve due to regurgitation. The left AV valve: There is a [address] Elijah mechanical valve that is well- seated. Doppler evidence of regurgitation is normal for this prosthetic left AV valve. The left AV valve mean gradient is 6 mmHg at a heart rate of 72 bpm. The gradient is normal for this prosthetic valve. Left Atrium - Congenital The left atrium is dilated by visual assessment. Left Ventricle - Congenital The left ventricle is the systemic ventricle. Based on the linear dimension and/or 2D volumes, the left ventricle is small in size. There is normal left ventricular myocardial thickness and mass. The left ventricular systolic function is normal. The LVEF is visually estimated at 40 - 50%. No regional wall motion abnormalities are seen. The septal motion is most consistent with septal translation associated with prior cardiac surgery. Unable to assess diastolic function due to mitral valve surgery. Right Ventricle - Congenital The right ventricle is the subpulmonic ventricle. The right ventricle is mildly dilated. The right ventricular systolic function is normal. The estimated global right ventricular systolic function based upon the focused RV view fractional area change is normal (>/=35%). The estimated right ventricular systolic pressure is 37 mmHg. Right ventricular systolic pressure is mildly elevated (35-50mmHg). A catheter/lead is present in the right ventricle. Pulmonic Valve - Congenital The pulmonic valve is normal in appearance. There is trace pulmonic regurgitation. There is no pulmonic stenosis. Aortic Valve - Congenital The aortic valve appears to be trileaflet. There is no valvular regurgitation. There is no hemodynamically significant valvular aortic stenosis. Pericardium - Congenital No pericardial effusion. Great Vessels The aortic root is normal in size. The sinus of Valsalva (aortic root) diameter is 29 mm by leading edge to leading edge method. The main pulmonary artery is not well visualized. Study Details A complete transthoracic echocardiogram using two-dimensional (2D), m-mode, color and spectral flow Doppler imaging was performed. During the study the apical, parasternal, subcostal and suprasternal view was captured. Overall the study quality was adequate. Heart rate was normal. Height: 152.4 cm. Weight: 100.2 kg. BSA: 1.95 m2. The heart rhythm during this exam was most suggestive of a sinus rhythm. Study Recommendation Compared to the most recently available prior study, and allowing for differences in image quality and technique, there is no significant interval change noted. 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
--- OUTSIDE RECORDS SUMMARY | 2025-06-19 13:20 | XMS_ITS | Encounter Summary ---
Author Organization [facility] Address [address] [place] [address] Care Team Providers Care Production Line Operator Name Role Phone Espinoza Thakur MD Primary Care Provider [phone] Reason for Referral * Imaging (Routine) - Pending Review Specialty Diagnoses / Procedures Referred By Contac t Referred To Contact Cardiology Diagnoses AV canal Morbid obesity with body mass index (BMI) of 40.0 to 44.9 in adult Atrial septal defect, unspecified Procedures Echo, Adult Congenital Transthoracic (TTE) Complete Jordon Tidwell MD [address] [place] [address] Phone: tel: fax: Referral ID Status Reason Start Date Expiration Date Visits Requested Visits Authorized [id number] Pending Review Perform Procedure 06/19/2025 12/19/2026 1 1 * Consultation (Routine) - Authorized Specialty Diagnoses / Procedures Referred By Contac t Referred To Contact Diagnoses AV canal Morbid obesity with body mass index (BMI) of 40.0 to 44.9 in adult Jordon Tidwell MD [address] [place] [address] Phone: tel: fax: Referral ID Status Reason Start Date Expiration Date V isits Requested Visits Authorized [id number] Authorized 06/19/2025 12/19/2026 1 1 * Consultation (Routine) - Authorized Specialty Diagnoses / Procedures Referred By Contac t Referred To Contact Internal Medicine Diagnoses AV canal Morbid obesity with body mass index (BMI) of 40.0 to 44.9 in adult Shani Botello APRN [address] [place] [address] Phone: tel: fax: [facility] [address], [address] [place] [address] Phone: tel: fax: Referral ID Status Reason Start Date Expiration Date Visits Requested Visits Authorized [id number] Authorized Specialty Services Required 06/19/2025 12/19/2026 1 1 Reason for Visit * Reason Comments Follow-up Encounter Details Date Type Department Care Team (Late st Contact Info) Description 06/19/2025 1:20 PM EDT Office Visit [facility] [address] [facility] [place] [address] Jordon Tidwell MD [address] [place] [phone] AV canal (Primary Dx); Morbid obesity with body mass index (BMI) of 40.0 to 44.9 in adult (CMS/HCC); Atrial septal defect, unspecified Social History Tobacco Use Types Packs/Day Years [...] Sign Reading Time Taken Comments Blood Pressure 113/76 06/19/2025 9:48 AM EDT Pulse 71 06/19/2025 9:48 AM EDT Temperature - - Respiratory Rate - - Oxygen Saturation 90% 06/19/2025 9:48 AM EDT Inhaled Oxygen Concentration - - Weight 102 kg (224 lb 10.4 oz) 06/19/2025 9:48 A M EDT Height 152.4 cm (5') 06/19/2025 9:48 AM EDT Body Mass Index 43.87 06/19/2025 9:48 AM EDT documented in this encounter Functional [...] Not at all 06/19/2025 9: 52 AM EDT Ashley Varma Feeling bad about yourself - or that you are a failure or have let yourself or your family down Not at all 06/19/2025 9:52 AM EDT Ashley Murrieta Trouble concentrating on thi ngs, such as reading the newspaper or watching television Not at all 06/19/2025 9:52 AM EDT Ashley Varma Moving or speaking so slowly that other people could have noticed? Or the opposite - being so fidgety or restless that you have been moving around a lot more than usual. Not at all 06/19/2025 9:52 AM EDT Ashley Varma Thoughts that you would be better off or hurting yourself in some way Not at all 06/19/2025 9:52 AM EDT Ashley Varma Patient Health Questionnaire -9 Score 0 06/19/2025 9:52 AM EDT Ashley Varma * How difficult have these problems made it for you to do your work, take care of things at home, or get along with other people? Answer Date of Assessment Author Not difficult at all 06/19/2025 9:52 AM EDT Ashley Murrieta documented as of this encounter Miscellaneous Notes * Progress Notes - Shani Botello, FILE CLERK DATA ENTRY - 06/19/2025 1:20 PM EDT Images from the original note were not included. Sharona Kinney Daniel is a 40 y.o. 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 MVR + Tricuspid annuloplasty 2010 with post op course complicated by CHB requiring implant of [employer] Elijah BiVentricular Pacemaker and chronic atrial flutter whopresents today for scheduled follow up. Chronically anticoagulated on warfarin. Has KALEIGH, on CPAP, follows with [facility]. Had episode of NSVT in 01/10/2024 seen on PM monitoring howeverpt was asymptomatic. Has hx of O2 desaturation with exercise. Seen by [facility] pul[facility]ology. Has chronic but stable LV systolic dysfunction with LVEF 44% on TTE last year. 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 Chavez at [facility] -01/20/2011 [facility] 27 mm prosthetic mitral valve replacement and tricuspid valve annuloplasty by Dr. Davis at [facility] -01/24/2011 [facility] Biventricular Pacemaker by Dr. Cui Cardiac Problems -complete heart block -chronic atrial flutter -congestive heart failure Other Medical Problems -KALEIGH on CPAP and home O2 PRN -obesity -seasonal allergies -hypothyroid -on chronic anticoagulation with warfarin Diagnostic Studies: TTE 01/21/2024 LVEF 44% RAAV with MG 6 mmHg Mechanical LAAV with MG 4 mmHG Dilated RV with reduced RV fx Expand All Collapse All PULMONARY FOLLOW-UP NOTE Established patient: Follow-up for chronic hypoxemic respiratory failure History Of Present Illness Sharona Sanchez is a 39 y.o. years old female with PMHx of AV canal, CHF, Afib KALEIGH with CPAP, Hypothyroidism here for ongoing management. Kusum is here today with her mother and sister. No recent hospitalization/illness. She has been feeling well. Still with some dyspnea on exertion. No significant cough, wheezing or sputum production Underwent inlab PSG with titration, recommended CPAP 10cm of water with 2lpm of oxygen. Interval History -repair of atrium secundum defect post mitral valve replacement with [employer] mechanical valve, postoperative heart block. Past Medical History Past Medical History Past Medical History: Diagnosis Date A-fib (CMS/HCC) CHF (congestive heart failure) (CMS/HCC) Conversions - Other Allergies Conversions - Other Hypothyroidism Conversions - Other Obstructive Sleep Apnea Conversions - Other Trisomy 21 (Down Syndrome) Conversions - Other Valvular Heart Disease Disease of thyroid gland Down syndrome KALEIGH on CPAP Past Surgical History Surgical History Past Surgical History: Procedure Laterality Date INSERT / REPLACE / REMOVE PACEMAKER N/A Permanent Pacemaker [employer] [facility] [facility] from [employer] MITRAL VALVE REPLACEMENT OTHER SURGICAL HISTORY N/A Tricuspid Valve Annuloplasty from [employer] OTHER SURGICAL HISTORY N/A History of cardiac pacemaker from [employer] TONSILECTOMY, ADENOIDECTOMY, BILATERAL MYRINGOTOMY AND TUBES N/A Tonsillectomy With Adenoidectomy from [employer] Family History Family History Family History Problem Relation Name Age of Onset Hypercholesterolemia Mother Hypertension Mother Thyroid disease Mother Heart attack Father Diabetes Brother Mental illness Brother Social History reports that she has never smoked. She has never been exposed to tobacco smoke. She has never used smokeless tobacco. She reports that she does not drink alcohol and does not use drugs. Occupational History (If relevant) Immunizations: Immunization History Administered Date(s) Administered Hep A, Adult 09/11/2018 Influenza, seasonal, injectable, preservative free 06/25/2024 Pfizer-BioNTech COVID-19 Vaccine (Valverde Cap) 12+ years (adela-sucrose) 06/01/2022 Pfizer-BioNTech COVID-19 Vaccine (Purple Cap) 12+ 11/03/2020, 11/25/2020, 07/28/2021 VACCINE/DOSE DATE Flu 06/25/2024 Tetanus Pneumovax Shingles Allergies Doxycycline Medications Current Medications Current Outpatient Medications Medication Sig Dispense Refill albuterol 108 (90 [...] After Visit Summary. 7mg on Sunday No current facility-administered medications for this visit. Items reviewed Tobacco Allergies Meds Problems Med Hx Surg Hx Fam Hx Review of Systems Constitutional: Negative for chills, fever and unexpected weight change. HENT: Positive for congestion. Negative for sinus pain. Respiratory: Positive for shortness of breath. Negative for cough and wheezing. Cardiovascular: Negative for leg swelling. Gastrointestinal: Negative. Skin: Negative. Neurological: Negative for dizziness, syncope and light-headedness. Last Recorded Vitals Visit Vitals BP 112/71 (BP Location: Right arm, Patient Position: Sitting) Pulse 70 Temp 36.8 ??C (98.3 ??F) (Oral) Resp 14 Ht 1.524 m (5') Wt 102 kg (225 lb 8.5 oz) SpO2 92% Comment: RA, typically on 2L/O2 BMI 44.05 kg/m?? OB Status Other Smoking Status Never BSA 2.08 m?? Physical Exam Vitals and nursing note reviewed. Constitutional: Appearance: Normal appearance. She is well-developed. She is obese. HENT: Head: Normocephalic and atraumatic. Mouth/Throat: Mouth: Mucous membranes are moist. Pharynx: No oropharyngeal exudate or posterior oropharyngeal erythema. Eyes: General: No scleral icterus. Conjunctiva/sclera: Conjunctivae normal. Pupils: Pupils are equal, round, and reactive to light. Cardiovascular: Rate and Rhythm: Normal rate and regular rhythm. Pulses: Normal pulses. Heart sounds: Normal heart sounds. Pulmonary: Effort: Pulmonary effort is normal. No respiratory distress. Breath sounds: Normal breath sounds. No wheezing or rales. Musculoskeletal: General: Normal range of motion. Cervical back: No tenderness. Right lower leg: No edema. Left lower leg: No edema. Lymphadenopathy: Cervical: No cervical adenopathy. Skin: General: Skin is warm and dry. Neurological: Mental Status: She is alert and oriented to person, place, and time. Psychiatric: Thought Content: Thought content normal. Judgment: Judgment normal. Results: TTE: History: Trisomy 21, Type A Atrioventricular Canal, s/p AVC repair (02/02/87, [facility], [place]), s/p 27mm [facility] Elijah [...] there is no significant interval change noted. CT Chest wo IV Contrast 09/08/2024 No evidence of significant chronic interstitial change/fibrosis. Mosaic attenuation indicative of small airway disease or small vessel disease Review of symptoms Constitutional: Negative for decreased appetite and weight gain. Cardiovascular: see hPI Respiratory: Negative for cough, shortness of breath and sleep disturbances due to breathing. Gastrointestinal: Negative for bloating. 14 Point ROS reviewed and is otherwise negative except as per HPI. Other Past Medical History Past Medical History[1] Other Surgical History Surgical History[2] Family History family history includes Diabetes in her brother; Heart attack in her father; Hypercholesterolemia in her mother; Hypertension in her mother; Mental illness in her brother; Thyroid disease in her mother. Social History reports that she has never smoked. She has never been exposed to tobacco smoke. She has never used smokeless tobacco. She reports that she does not drink alcohol and does not use drugs. Medications Current Medications[3] Physical Exam Constitutional: Appearance: Normal appearance. Cardiovascular: Rate and Rhythm: Normal rate and regular rhythm. Heart sounds: Normal heart sounds. Pulmonary: Effort: Pulmonary effort is normal. Breath sounds: Normal breath sounds. Abdominal: General: Abdomen is flat. Palpations: Abdomen is soft. Skin: General: Skin is warm and dry. Neurological: General: No focal deficit present. Mental Status: She is alert and oriented to person, place, and time. Psychiatric: Mood and Affect: Mood normal. Behavior: Behavior normal. Visit Vitals BP 113/76 Pulse 71 Ht 1.524 m (5') Wt 102 kg (224 lb 10.4 oz) SpO2 90% BMI 43.87 kg/m?? Labs Lab Results Component Value Date HGB 13.9 05/18/2021 HCT 41.1 05/18/2021 PLT 220 05/18/2021 NA 135 (L) 05/18/2021 K 4.6 05/18/2021 CREATININE 0.68 05/18/2021 BUN 10 05/18/2021 CO2 22 05/18/2021 INR 2.3 (H) 05/18/2021 Assessment and Plan Problem List[4] 40F with DS, S/P AV canal repair, ostium secundum defect repair, S/P [facility] [facility] mechanical MVR + tricuspid annuloplasty, developed CHB, S/P BiV PM and followed by [facility]. Has chronic atrial fib/flutter V-paced rhythm. Had episode of NSVT 01/10/24 which occurred in the setting of exercise but was asymptomatic. Denies syncope, edema, or chest pain. Has chronic SOA with exertion. Rides exercise bike. 6MWT today: Heart rate: starting 72 ending 84 recovery 74 SPO2: starting 95 ending 83%, recovery 94% Gosia: starting 7, ending 5 recovery 2 Walked 213.3 meters 3 minutes 16 seconds. TTE today unchanged with mild to moderate RAAV regurg, MG 5, mechanical LAAV with MG 6, LVEF 40-50%which is unchanged from previous. - Encouraged to continue to be as physically active as possible, rest when needed, and use oxygen when hypoxic -referred to Weight Loss clinic. Okay to take any of the non-stimulant weight loss medications. -continue asa 81 mg for valve ppx -continue Lasix 40 mg daily -continue warfarin INR goal 2.5 to 3.5, managed by PCP at [place] -follow up with EP for management of pm RTC one year with TTE and EKG A total time of 57 minutes was spent by MD and PARTHA addressing the current illness, reviewing records (prior imaging, lab work, etc), and formulating a plan. The patient is agreeable to the plan and all pertinent questions were answered. Patient was seen and assessed in collaboration with Dr. Tidwell who agrees with the above plan ofcare. Shani Botello APRN [1] Past Medical History: Diagnosis Date A-fib (CMS/HCC) CHF (congestive heart failure) (CMS/HCC) Conversions - Other Allergies Conversions - Other Hypothyroidism Conversions - Other Obstructive Sleep Apnea Conversions - Other Trisomy 21 (Down Syndrome) Conversions - Other Valvular Heart Disease Disease of thyroid gland Down syndrome KALEIGH on CPAP [2] Past Surgical History: Procedure Laterality Date INSERT / REPLACE / REMOVE PACEMAKER N/A Permanent Pacemaker [employer] from [employer] MITRAL VALVE REPLACEMENT OTHER SURGICAL HISTORY N/A Tricuspid Valve Annuloplasty from [employer] OTHER SURGICAL HISTORY N/A History of cardiac pacemaker from [employer] TONSILECTOMY, ADENOIDECTOMY, BILATERAL MYRINGOTOMY AND TUBES N/A Tonsillectomy With Adenoidectomy from [employer] [3] Current Outpatient Medications Medication Sig Dispense Refill albuterol 108 (90 Base) MCG/ACT inhaler Inhale 2 puffs 1 (one) time each day if needed. aspirin 81 MG EC tablet Take 1 tablet (81 mg) by mouth every night. calcium-vitamin D 500-200 MG-UNIT tablet Take 1 [...] day. 84 tablet 3 Pediatric Multiple Vit-C-FA ([facility]3 DHA PO) Take 2 tablets by mouth 1 (one) time each day. warfarin (Coumadin) 1 MG tablet warfarin (Coumadin) 6 MG tablet Take 1 tablet (6 mg) by mouth 1 (one) time each day. Take as directed per After Visit Summary. 7mg on Sunday Azelastine HCl 137 MCG/SPRAY solution (Patient not taking: Reported on 06/19/2025) No current facility-administered medications for this visit. [4] Patient Active Problem List Diagnosis Acute diastolic heart failure secondary to hypertrophic obstructive cardiomyopathy (CMS/HCC) Allergic rhinitis Apnea, sleep Atrial fibrillation (CMS/HCC) Atrial flutter (CMS/HCC) Atrioventricular canal Status post mitral valve replacement Presence of cardiac pacemaker Obesity Hypothyroidism Down syndrome Complete heart block, post-surgical (CMS/HCC) CHF (congestive heart failure) (CMS/HCC) End of battery life of cardiac resynchronization therapy pacemaker (LABEL STAMPER-P) Pacemaker complications, initial encounter H/O tricuspid valve annuloplasty Left foot pain documented in this encounter Plan of Treatment Upcoming Encounters Date Type Department Care Team (Late st Contact Info) Description 08/21/2025 11:40 AM EST Office Visit [facility] Sleep Disorder Center [address]th [place] [address] Lavern Galdamez APRN [address] [place] [phone] 09/10/2025 1:00 PM EST Office Visit [facility] [address] [facility] [place] [address] Tanja Parsons MD [address] [place] [address] 09/25/2025 1:00 PM EST Office Visit [facility] Otolaryngology [address], [address] [place] [address] Jesse Moffett MD [address] [place] [address] 09/28/2025 11:30 AM EST Appointment [facility] [address] [place] [address] 02/08/2026 12:30 PM EDT [facility] [address] [place] [address] Emi Orozco PA [address] [place] [address] 02/10/2026 12:20 PM EDT Office Visit [facility] [address], [address] [place] [address] Hannah Tnag MD [address] [place] [address] 2026 1:00 PM EDT Appointment Cardiac Imaging [address] [place] [address] 2026 2:40 PM EDT Office Visit [facility] [address] [place] [address] Jordon Tidwell MD [address] [place] [address] Scheduled Orders Name Type Priority Associated Diagnoses Orde r Schedule Echo, Adult Congenital Transthoracic (TTE) Complete Congenital Echo Routine AV canal Morbid obesity with body mass index (BMI) of 40.0 to 44.9 in adult ([facility]) Atrial septal defect, unspecified Expected: 06/19/2026, Expires: 12/21/2026 Scheduled Referrals Name Type Priority Associated Diagnoses Order Schedule Ambulatory referral to [facility] Outpatient Referral Routine AV canal Morbid obesity with body mass index (BMI) of 40.0 to 44.9 in adult ([facility]) 1 Occurrences starting 06/19/2025 until 12/21/2026 Follow Up Cardiology Outpatient Referral Routine AV canal Morbid obesity with body mass index (BMI) of 40.0 to 44.9 in adult ([facility]) Expected: 06/19/2026, Expires: 12/17/2026 documented as of this encounter Procedures Procedure Name Priority Date/Time Associated Diagnosis Comments ECG ADULT Routine 06/19/2025 9:57 AM EDT AV canal documented in this encounter Results * ECG Adult (Now - Performed in your clinic) (06/19/2025 9:57 AM EDT) EKG DIAGNOSIS CLASS Abnormal MUSE ECG Ventricular Rate 71 BPM MUSE ECG Atrial Rate 227 BPM MUSE ECG QRSD Interval 162 ms MUSE ECG QT Interval 442 ms MUSE ECG QTC Interval 480 ms MUSE ECG P [place] 80 degrees MUSE ECG R [place] -54 degrees MUSE ECG T Wave [place] 71 degrees MUSE ECG Diagnosis Ventricular-p aced rhythm MUSE ECG Diagnosis Abnormal ECG MUSE ECG Diagnosis MUSE ECG Diagnosis Confirmed by Chris Mccord ([id number]) on 06/19/2025 10:07:50 PM MUSE ECG 06/19/2025 9:57 AM EDT 06/19/2025 10:07 PM EDT us Jordon Tidwell MD ECG ORDERABLES Final Resu lt MUSE ECG documented in this encounter Visit Diagnoses Diagnosis AV canal- Primary Morbid obesity with body mass index (BMI) of 40.0 to 44.9 in adult Atrial septal defect, unspecified documented in this encounter Additional Health Concerns Assessment Noted Time PHQ-9 Depression Total Score: 0 06/19/20 25 9:52 AM EDT A fall risk assessment has been complete d for the patient 06/19/2025 9:52 AM EDT A Body Mass Index follow-up plan has been documented for the patient 06/19/2025 11:06 AM EDT documented as of this encounter Care Teams Production Line Operator Relationship Specialty Start Date End Date Espinoza Thakur MD [address] [place] [address] [address] [place] [address] PCP - General 02/11/21 documented as of this encounter
--- OUTSIDE RECORDS SUMMARY | 2025-06-29 13:00 | XMS_ITS | Encounter Summary ---
Author Organization Healthcare Address [address] [place] [address] Care Team Providers Care Webbing Tacker Name Role Phone Espinoza Thakur MD Primary Care Provider [phone] Encounter Details Date Type Department Care Team (Latest Contact Info) Description 06/29/2025 1:00 PM EDT Office Visit [facility] Audiology [address] [place] [address] Arlene Love, AuD [address] [place] [address] Mixed conductive and sensorineural hearing loss of both ears (Primary Dx) Social History Tobacco Use Types [...] encounter Miscellaneous Notes * Progress Notes - Arlene Love, AuD - 06/29/2025 1:00 PM EDT Images from the original note were not included. AUDIOLOGIC EVALUATION Referring Provider: No ref. provider found HISTORY: Sharona Sanchez is a 40 y.o. female seen today for an audiologic evaluation, she was accompanied by her sister and mother. Medical history is significant for Down Syndrome. Today she reports aural popping sensation, more in the left ear. Mom and sister note Kusum has the TV volume turned up and are unsure of her hearing status. No other significant audiological history or changes were reported. RESULTS: Otoscopy: Non-occluding cerumen bilaterally Tympanograms (226 Hz): Reduced compliance bilaterally Audiogram: Method: Conventional Audiometry / Conditioned Play Audiometry (Amrita Quezada in chew) Transducer: headphones Results: Today's comprehensive audiologic evaluation from 500 - 4000 Hz demonstrated right mild mixed hearing loss and left mild to moderate mixed hearing loss. Word Recognition: RE: 90%; Excellent LE: 100%; Excellent SRT/Audiogram Agreement: Fair Reliability: Fair RECOMMENDATIONS: - Patient following up with ENT Hearing test post-medical management Arlene Sahni, [facility] Count Team Clerk documented in this encounter Plan of Treatment Upcoming Encounters Date Type Department Care Team (Late st Contact Info) Description 08/21/2025 11:40 AM EST Office Visit [facility] Sleep Disorder Center [address] [place] [phone] Lavern Galdamez APRN [address] [place] [address] 09/10/2025 1:00 PM EST Office Visit [facility] [place] [address] [place] [address] Tanja Parsons MD [address] [place] [address] 09/25/2025 1:00 PM EST Office Visit [facility] Otolaryngology [address] [place] [address] Jesse Moffett MD [address] [place] [address] 09/28/2025 11:30 AM EST Appointment [facility] [address] [place] [address] 02/08/2026 12:30 PM EDT Office Visit [facility] Medicine Specialties [address] [place] [address] Emi Orozco PA [address] [place] [address] 02/10/2026 12:20 PM EDT Office Visit [facility] Women's Health [address] [place] [address] Hannah Tang MD [address] [place] [address] 2026 1:00 PM EDT Appointment Cardiac Imaging [address] [place] [address] 2026 2:40 PM EDT Office Visit [facility] [place] [address] [facility] [place] [address] Jordon Tidwell MD [address] [place] [address] documented as of this encounter Visit Diagnoses Diagnosis Mixed conductive and sensorineural hearing loss of both ears- Primary documented in this encounter Additional Health Concerns Assessment Noted Time PHQ-9 Depression Total Score: 0 06/19/20 25 9:52 AM EDT A fall risk assessment has been complete d for the patient 06/19/2025 9:52 AM EDT A Body Mass Index follow-up plan has been documented for the patient 06/29/2025 4:50 PM EDT documented as of this encounter Care Teams Webbing Tacker Relationship Specialty Start Date End Date Espinoza Thakur MD [address] [place] [address] [address]1 [address]1 [place] [address] PCP - General 02/11/21 documented as of this encounter
--- OUTSIDE RECORDS SUMMARY | 2025-06-29 13:45 | XMS_ITS | Encounter Summary ---
Author Organization Healthcare Address [address] [place] [address] Care Team Providers Care Corporate Affairs Manager Name Role Phone Espinoza Thakur MD Primary Care Provider [phone] Reason for Visit * Reason Comments Ear Problem Encounter Details Date Type Department Care Team (Late st Contact Info) Description 06/29/2025 1:45 PM EDT Consult [facility] [address], [address] [place] [address] Jesse Moffett MD [address] [place] [address] Mixed conductive and sensorineural hearing loss of both ears (Primary Dx); Down syndrome; Bilateral impacted cerumen Social History Tobacco Use Types Packs/Day Years [...] Sign Reading Time Taken Comments Blood Pressure - - Pulse - - Temperature - - Respiratory Rate - - Oxygen Saturation - - Inhaled Oxygen Concentration - - Weight 102 kg (225 lb 5 oz) 06/29/2025 2:02 PM E DT Height 149.9 cm (4' 11 ) 06/29/2025 2:02 PM EDT Body Mass Index 45.51 06/29/2025 2:02 PM EDT documented in this encounter Miscellaneous Notes * Progress Notes - Jesse Moffett MD - 06/29/2025 1:45 PM EDT Images from the original note were not included. [facility] -- [place] [address] New Visit History of Present Illness The patient is a 40-year-old female who presents for hearing problems. She is accompanied by her mother and sister. The patient's mother reports that she has been experiencing difficulty hearing, often requiring thetelevision volume to be increased significantly. There was also mention of potential fluid behind the eardrum. Her ears were previously cleaned by their family physician using a flushing method, and a significant amount of earwax was removed. Occasionally, she complains of a popping sensation in her ears. She does not use Q-tips for ear cleaning. Denies any other ear problems. No history of frequent ear infections, prior otologic surgery, noiseexposure, ototoxic medication, does have a family history of hearing loss. Medical history includes mechanical heart valve, congenital heart disease, sleep apnea. Prior surgeries include 2 open heart surgeries, pacemaker, battery changes, adenotonsillectomy. Has a family history of heart disease, cancer, high blood pressure, cholesterol, sleep apnea. Does not currently work. Lives with the mother. Has never used tobacco alcohol or drugs. Reports allergies to doxycycline. 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 and Face: normocephalic, no scars, lesions, masses Facial strength: normal bilaterally Nose: external nose of normal appearance, no gross external deformities Ocular Motility: normal with normal primary gaze alignment, no nystagmus Examination of neck: normal appearance, trachea midline, no masses, no lymphadenopathy External ears: pinnae normal Neuro: alert, cranial nerves grossly intact unless otherwise noted above Cardiovascular: no peripheral cyanosis Pulmonary: breathing quietly, no stridor or stertor Otoscopy: binocular otomicroscopy was performed in lieu of handheld otoscopy Binocular otomicroscopy procedure was performed. The indication was hearing loss. The patient was positioned supine and an ear speculum was inserted. The microscope was used to inspect the right ear,then the same procedure was performed on the left. The patient tolerated the procedure well. Findings: RIGHT ear canal is impacted with cerumen and the tympanic membrane intact with no retraction, infection, or effusion LEFT ear canal is impacted with cerumen and the tympanic membrane is intact with no retraction, infection, or effusion Procedure: Cerumenectomy Preprocedure dx: bilateral cerumen impaction Postprocedure dx: same as above Indication: cerumen impaction Description: The patient was positioned as supine as possible. Using a binocular microscope and with the assistance of microinstruments, obstructing cerumen was removed from the affected ear canal(s). Findings: cerumen impaction was completely removed Assessment & Plan: 1. Mixed conductive and sensorineural hearing loss of both ears 2. Down syndrome Shaorna Sanchez is a 40 y.o. female with Down syndrome, bilateral mild mixed hearing loss and reduced tympanometry, with bilateral cerumen impaction. Cerumenectomy performed bilaterally. I will plan to see her in 3 months. I want her to use mineral oil. Assessment & Plan 1. Bilateral cerumen impaction. Cerumen in both ears may be contributing to decreased hearing acuity. The eardrums are opaque, making it challenging to determine the presence of fluid. Considering the hearing test results, there might be some fluid dampening sounds slightly. Hearing loss is mild but noticeable. The use of Q-tips was discouraged. Mineral oil should be applied once or twice a week to help soften the earwax. Waterexposure in the ears during showers or hair washing should be avoided by using ear plugs or applying Vaseline on a cotton ball to cover the ear canals. Follow-up A follow-up visit is scheduled for 3 months. PROCEDURE Procedure: Earwax removal - Procedural Discussion: Discussed the removal of earwax to potentially improve hearing and alleviate discomfort. Risks include minor discomfort during the procedure. - Technique: Used suctioning to remove earwax from both ears. - Post-Procedural Discussion: Advised the use of mineral oil once or twice a week to keep earwax loose and easier to remove. Recommended avoiding Q-tips and keeping water out of the ears. Jesse Moffett MD documented in this encounter Plan of Treatment Upcoming Encounters Date Type Department Care Team (Late st Contact Info) Description 08/21/2025 11:40 AM EST Office Visit [facility] Sleep Disorder Center [address]th [place] [phone] Lavern Galdamez APRN [address] [place] [address] 09/10/2025 1:00 PM EST Office Visit [facility] [address] [place] [address] Tanja Parsons MD [address] [place] [address] 09/25/2025 1:00 PM EST Office Visit [facility] Otolaryngology [address], [address] [place] [address] Jesse Moffett MD [address] [place] [address] 09/28/2025 11:30 AM EST Appointment [facility] Breast Care Center [facility] [place] [address] [address] [place] [address] 02/08/2026 12:30 PM EDT Office [facility] Medicine Specialties [address]nd [place] [address] Emi Orozco PA [address] [place] [address] 02/10/2026 12:20 PM EDT Office Visit [facility] Women's Health [address], [address] [place] [address] Hannah Tang MD [address] [place] [address] 2026 1:00 PM EDT Appointment Cardiac Imaging [address] [place] [address] 2026 2:40 PM EDT Office Visit [facility] [address] [place] [address] Jordon Tidwell MD [address] [place] [address] documented as of this encounter Visit Diagnoses Diagnosis Mixed conductive and sensorineural hearing loss of both ears- Primary Down syndrome Down's syndrome Bilateral impacted cerumen Impacted cerumen documented in this encounter Additional Health Concerns Assessment Noted Time PHQ-9 Depression Total Score: 0 06/19/20 25 9:52 AM EDT A fall risk assessment has been complete d for the patient 06/19/2025 9:52 AM EDT A Body Mass Index follow-up plan has been documented for the patient 06/29/2025 4:50 PM EDT documented as of this encounter Care Teams Corporate Affairs Manager Relationship Specialty Start Date End Date Espinoza Thakur MD [address] [place] [address] [address] [place] [address] PCP - General 02/11/21 documented as of this encounter
--- OUTSIDE RECORDS SUMMARY | 2025-07-28 12:30 | XMS_ITS | Encounter Summary ---
Author Organization Healthcare Address [address] [place] [address] Care Team Providers Care Manager Electronic Name Role Phone Espinoza Thakur MD Primary Care Provider [phone] Encounter Details Date Type Department Care Team (Late st Contact Info) Description 06/24/2025 Telephone [facility] [address] [place] [address] Aliyah Chinchilla Social History Tobacco Use Types Packs/Day Years [...] Description 08/21/2025 11:40 AM EST Office Visit [facility] Sleep Disorder Center [address]th [place] [address] Lavern Galdamez APRN [address] [place] [address] 09/10/2025 1:00 PM EST Office Visit [facility] [place] [address] [place] [address] Tanja Parsons MD [address] [place] [address] 09/25/2025 1:00 PM EST Office Visit [facility] Otolaryngology [address] [place] [address] Jesse Moffett MD [address] [place] [address] 09/28/2025 11:30 AM EST Appointment [facility] Breast [facility] Breast Care [address] [place] [address] 02/08/2026 12:30 PM EDT Office Visit [facility] Medicine Specialties [address], [address] [place] [address] Emi Orozco PA [address] [place] [address] 02/10/2026 12:20 PM EDT Office Visit [facility] Women's Health [address] [place] [address] Hannah Tang MD [address] [place] [address] 2026 1:00 PM EDT Appointment Cardiac Imaging [address] [place] [address] 2026 2:40 PM EDT Office Visit [facility] [place] [address] [facility] [place] [address] Jordon Tidwell MD [address] [place] [address] documented as of this encounter [...] documented as of this encounter Care Teams Manager Electronic Relationship Specialty Start Date End Date Espinoza Thakur MD [address] [place] [address] [address] [place] [address] PCP - General 02/11/21 documented as of this encounter
--- OUTSIDE RECORDS SUMMARY | 2025-07-28 12:30 | XMS_ITS | Encounter Summary ---
Author Organization Healthcare Address [address] [place] [address] Care Team Providers Care Covered Buckle Assembler Name Role Phone Espinoza Thakur MD Primary Care Provider [phone] Encounter Details Date Type Department Care Team (Latest Contact Info) Description 06/29/2025 Travel Social History Tobacco Use Types Packs/Day [...] Description 08/21/2025 11:40 AM EST Office Visit [facility] Sleep Disorder Center [address]th [place] [address] Lavern Galdamez APRN [address] [place] [address] 09/10/2025 1:00 PM EST Office Visit [facility] [place] [address] [facility] [place] [address] Tanja Parsons MD [address] [place] [address] 09/25/2025 1:00 PM EST Office Visit [facility] Otolaryngology [address], [address] [place] [address] Jesse Moffett MD [address] [facility] [address] [place] [address] 09/28/2025 11:30 AM EST Appointment [facility] Breast [facility] Breast Care Center [facility] [address] [place] [address] 02/08/2026 12:30 PM EDT Office Visit [facility] Medicine Specialties [address] [place] [address] Emi Orozco PA [address] [facility] [address] [place] [address] 02/10/2026 12:20 PM EDT Office Visit [facility] Women's Health [address] [place] [address] Hannah Tang MD [address] [place] [address] 2026 1:00 PM EDT Appointment Cardiac Imaging [address] [place] [address] 2026 2:40 PM EDT Office Visit [facility] [place] [address] [facility] [place] [address] Jordon Tidwell MD [address] [place] [address] documented as of this encounter [...] documented as of this encounter Care Teams Covered Buckle Assembler Relationship Specialty Start Date End Date Espinoza Thakur MD [address] [place] [address] [address] [place] [address] PCP - General 02/11/21 documented as of this encounter
--- OUTSIDE RECORDS SUMMARY | 2025-07-28 12:30 | XMS_ITS | Clinical Summary ---
Author Organization Healthcare Address [address] [place] [id number] Care Team Providers Care Costume Draper Name Role Phone Espinoza Thakur MD Primary Care Provider [phone] Allergies Active Allergy Reactions Criticality Noted Date [...] or split. Active norethindrone (Micronor) 0.35 MG tabletIndications :Encounter for initial prescription of contraceptive pills Take 1 tablet (0.35 mg) by mouth 1 (one) time each day. 84 tablet 3 4 Active metoprolol succinate XL (Toprol-XL) 25 MG 24 hr tabletIndications :NSVT (nonsustained ventricular tachycardia) (CMS/HCC) Take 0.5 tablets (12.5 mg) by mouth daily. 15 tablet 5 5 Active warfarin (Coumadin) 1 MG tablet 5 Active budesonide-formot vera (Symbicort) 80-4.5 MCG/ACT inhaler Inhale 2 puffs 2 times a day. Rinse mouth with water after use to reduce aftertaste and incidence of candidiasis. Do not swallow. 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 11/21/2019 Obesity 11/21/2019 Down syndrome 02/27/2019 CHF (congestive heart failure) 02/25/2019 Apnea, sleep 12/17/2018 Complete heart block, post-surgical 02/21/2016 Atrial flutter 08/13/2014 Presence of cardiac pacemaker 08/13/2013 Atrial fibrillation 02/18/2013 Atrioventricular canal 12/16/2012 Resolved Problems Problem Noted Date Diagnosed Date Resolved Date Left foot pain 02/19/2024 06/21/2025 H/O tricuspid valve annuloplasty 08/29/2023 06/21/2025 Implantable defibrillator reprogramming/check 04/22/20 21 05/03/2021 Overview (04/22/2021): Added automatically from request for surgery [id number] Weight loss counseling, encounter for 12/09/2020 05/03/2021 Weight gain 12/09/2020 05/03/2021 Obesity, Class III, BMI 40-4 9.9 (morbid obesity) 12/09/2020 05/03/2021 Transfusion history 02/27/2019 05/03/20 Abnormal CXR 12/17/2018 05/03/2021 Hypoxemia 02/18/2013 05/03/2021 Encounters Date Type Department Care Team Description 06/29/2025 1:45 PM EDT Consult [facility] Otolaryngology [address]rd [place] [address] Jesse Moffett MD Mixed conductive and sensorineural hearing loss of both ears (Primary Dx); Down syndrome; Bilateral impacted cerumen 06/29/2025 1:00 PM EDT Office Visit [facility] Audiology [address] [place] [address] Arlene Love AuD Mixed conductive and sensorineural hearing loss of both ears (Primary Dx) 06/29/2025 Orders Only [facility] Medicine Specialties [address], [address] [place] [address] Emi Orozco PA 06/29/2025 Travel 06/24/2025 Telephone [facility] Otolaryngology [address], [address] [place] [address] Aliyah Chinchilla 06/19/2025 1:20 PM EDT Office Visit [facility] [place] 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 Discharge Disposition: Home or Self Care 06/19/2025 Travel 05/18/2025 11:25 AM EDT - 05/18/2025 11:59 PM EDT Hospital Encounter Cardiac Imaging [address] [place] [address] Pacemaker Discharge Disposition: Home or Self Care 05/18/2025 Travel 05/11/2025 Telephone [facility] Otolaryngology [address] [place] [address] Jesse Moffett MD 05/08/2025 Telephone [facility] Otolaryngology [address] [place] [address] Jesse Moffett MD 05/01/2025 Telephone [facility] [place] [address] [place] [address] Jordon Tidwell MD from Last 3 Months Immunizations Immunization Administration Dates Next Due Hep A, Adult 09/11/2018 Influenza, seasonal, injectable, preservative fr ee 06/25/2024 [employer] COVID-19 Vaccine (Purple Cap) 12 + 11/25/2020,11/03/2020 Pneumococcal Polysaccharide PPV23 05/06/2025 Family History Medical History Relation Name Comments [...] Pulse 71 06/19/2025 9:48 AM EDT Temperature 36.8 C (98.3 F) 01/26/2025 8:57 AM EDT Respiratory Rate 14 01/26/2025 8:57 AM EDT Oxygen Saturation 90% 06/19/2025 9:48 AM EDT Inhaled Oxygen Concentration - - Weight 102 kg (225 lb 5 oz) 06/29/2025 2:02 PM E DT Height 149.9 cm (4' 11 ) 06/29/2025 2:02 PM EDT Body Mass Index 45.51 06/29/2025 2:02 PM EDT Plan of Treatment Upcoming Encounters Date Type Department Care Team (Late st Contact Info) Description 08/21/2025 11:40 AM EST Office Visit [facility] Sleep Disorder Center [address]th [place] [address] Lavern Galdamez, TOBACCO PREVENTION HEALTH EDUCATOR [address] [place] [address] 09/10/2025 1:00 PM EST Office Visit [facility] [place] [address] [place] [address] Tanja Parsons MD [address] [place] [address] 09/25/2025 1:00 PM EST Office Visit [facility] Ot[facility] [address] [place] [address] Jesse Moffett MD [address] [place] [address] 09/28/2025 11:30 AM EST Appointment [facility] Breast Care Center [facility] Breast Care [facility] [address] Building [address] [place] [address] 02/08/2026 12:30 PM EDT Office Visit [facility] Medicine Specialties [address] [place] [address] Emi Orozco PA [address] [place] [address] 02/10/2026 12:20 PM EDT Office Visit [facility] Women's Health [address] [place] [address] Hannah Tang MD [address] [place] [address] 2026 1:00 PM EDT Appointment Cardiac Imaging [address] [place] [address] 2026 2:40 PM EDT Office Visit [facility] [place] [address] [facility] [place] [address] Jordon Tidwell MD [address] [place] [address] Health Maintenance Due Date Last Done Comments [facility]-HIV Screening 1983 [facility]-Hepatitis C Screening 1983 [facility]-Medicare Annual Wellness (AWV) 1983 [facility]-/Child/Adol SDOH Screenings 1983 [facility]-Varicella Vaccines (1 of 2 - 13+ 2-dose series) 1996 [facility]- SDOH Screenings 2001 [facility]-Adult SDOH Screenings 2001 [facility]-DTaP,Tdap,and Td Vaccines (1 - Tdap) 2002 [facility]-Hepatitis B Vaccines (1 of 3 - 19+ 3-dose series) 2002 [facility]-Pap Smear 2004 HPV Vaccines (1 - 3-dose SCDM series) 2010 [facility]-Cervical Cancer Screening 2013 [facility]-HPV/Cotest 2013 [facility]-Pneumococcal Vaccine: Pediatrics (0 to 5 Years) and At-Risk Patients (6 to 49 Years) (1 of 2 - PCV) 05/06/2025 05/06/2025 [id number] Vaccine ( - season) 2025 06/01/2022, 07/28/2021, 11/25/2020, Additional history exists [facility]-Influenza Vaccine (#1) 2025 06/25/2024 [facility]-Depression Screening 06/19/2026 025, 06/19/2025, 07/28/2024 [facility]-Zoster Vaccines (1 of 2) 2033 [facility]-Hepatitis A Vaccines Aged Out 09/11/2018 No longer eligible based on patient's age to complete this topic [facility]-RSV Vaccine: 60+ Years or Discontinued 06/23/2025 [facility]-Obesity Intervention Completed 025, 06/29/2025, 06/19/2025, Additional history exists [facility]-HIB Vaccines Aged Out No longer e ligible based on patient's age to complete this topic [facility]-IPV Vaccines Aged Out No longer e ligible based on patient's age to complete this topic [facility]-Rotavirus Vaccines Aged Out No lo nger eligible based on patient's age to complete this topic Medical Devices Implanted Type Area Calcine Furnace Loader Device Identifier Shelf Expiration Date Model / Serial / Lot 1158t Quickflex Xl [id number] Lead 1158T QUICKFLEX XL / [id number] / [id number] Tendril Sts [id number] Lead 2088TC TEND RIL STS / [id number] / 2088tc Tendril Sts [id number] Lead 2088TC TEND RIL STS / [id number] / Pacemaker Allure Bi Vent - [id number] Implanted:Qty: 1 on 05/03/2021 by Tanja Parsons MD at [facility] [id number] 05/31/2021 [id number] / [id number] / [id number] Procedures Procedure Name Priority Date/Time Associated Diagnosis Comments ECG ADULT Routine 06/19/2025 9:57 AM EDT AV canal ECHO, ADULT CONGENITAL TRANSTHORACIC COMPLETE Routine 06/19/2025 9:48 AM EDT Atrioventricular canal H/O mitral valve replacement with mechanical valve 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 CARDIAC DEVICE CHECK - REMOTE - PACEMAKER Routine 05/18/2025 11:49 AM EDT Pacemaker from Last 3 Months Results * ECG Adult (Now - Performed in your clinic) (06/19/2025 9:57 AM EDT) EKG DIAGNOSIS CLASS Abnormal MUSE ECG Ventricular Rate 71 BPM MUSE ECG Atrial Rate 227 BPM MUSE ECG QRSD Interval 162 ms MUSE ECG QT Interval 442 ms MUSE ECG QTC Interval 480 ms MUSE ECG P [place] 80 degrees MUSE ECG R [place] -54 degrees MUSE ECG T Wave [place] 71 degrees MUSE ECG Diagnosis Ventricular-p aced rhythm MUSE ECG Diagnosis Abnormal ECG MUSE ECG Diagnosis MUSE ECG Diagnosis Confirmed by Chris Mccord ([id number]) on 06/19/2025 10:07:50 PM MUSE ECG 06/19/2025 9:57 AM EDT 06/19/2025 10:07 PM EDT us Jordon Tidwell MD ECG ORDERABLES Final Resu lt MUSE ECG * ECHO, ADULT CONGENITAL TRANSTHORACIC COMPLETE (06/19/2025 [...] there is no significant interval change noted. Shani Botello APRN CV ECHO PROCEDURES Final Re sult * CARDIAC DEVICE CHECK - REMOTE - PACEMAKER (05/18/2025 11:49 AM EDT) Anatomical Region Laterality Modality Other Narrative 05/18/2025 1:54 PM EDT Biventricular pacemaker remote interrogation. Device successfully sensing intrinsic cardiac events and marking appropriately. Available impedance values demonstrate stable trend within normal limits. Available lead capture thresholds measured without significant change. Adequate safety margin programmed in device permanent outputs. Battery discharge trend stable, appropriate given total time in service. BIV pacing percentage >= 92%. EGMs reviewed against implant indication and diagnosis. Presenting egm is regular BiV pacing. Otherwise unremarkable. No new events since last clinic/remote report evaluation. Suellen Cazares APRN CV IMPLANTABLE CARDIAC DEV ICE PROCEDURES Final Result from Last 3 Months Insurance [address] [id number] [place] [address] [facility] Advance Directives * Full Code (Latest Code Status on File) Date Activated Date Inactivated Comments 05/17/2021 5:32 PM 05/18/2021 4:30 PM Question Answer Comments Patient has decision-making capacity? Yes Care Teams Costume Draper Relationship Specialty Start Date End Date Espinoza Thakur MD [address] [place] [address] [address] [place] [address] PCP - General 02/11/21
--- OUTSIDE RECORDS SUMMARY | 2025-07-28 12:30 | XMS_ITS | Clinical Summary ---
Author Organization [facility] Address [address] [place] [address] Care Team Providers Care Rabies Inspector Name Role Phone Unavailable Primary Care Provider [...] VACCINES (1 - Tdap) 2002 MAMMOGRAM 2023 INFLUENZA VACCINE 05/01/2025 Pneumococcal Vaccine 0-49 Aged Out No longer eligible based on patient's age to complete this topic
--- OUTSIDE RECORDS SUMMARY | 2025-07-28 12:30 | XMS_ITS | Encounter Summary ---
Author Organization Healthcare Address [address] [place] [address] Care Team Providers Care Power Superintendent Name Role Phone Espinoza Thakur MD Primary Care Provider [phone] Encounter Details Date Type Department Care Team (Late st Contact Info) Description 06/29/[facility]25 [facility] [address], [address] [place] [address] Emi Orozco, PA [address] [place] [address] Social History Tobacco Use Types [...] Description 08/21/2025 11:40 AM EST Office Visit [facility] [address] [place] [address] Lavern Galdamez, PATIENT SITTER [address] [place] [address] 09/10/2025 1:00 PM EST Office Visit [facility] [place] [address] [place] [address] Tanja Parsons MD [address] [place] [address] 09/25/2025 1:00 PM EST Office Visit [facility] Otolaryngology [address] 3[address] [place] [address] Jesse Moffett MD [address] [facility] [address] [place] [address] 09/28/2025 11:30 AM EST Appointment [facility] Breast [facility] [address] [place] [address] 02/08/2026 12:30 PM EDT Office Visit [facility] Medicine Specialties [address], 2[address] [place] [address] Emi Orozco PA [address] [place] [address] 02/10/2026 12:20 PM EDT Office Visit [facility] Women's Health [address] [place] [address] Hannah Tang MD [address] [place] [address] 2026 1:00 PM EDT Appointment Cardiac Imaging [address] [place] [address] 2026 2:40 PM EDT Office Visit [facility] [place] 800 [facility]. [address] [place] [address] Jordon Tidwell MD [address] [place] [address] documented as of this encounter Visit Diagnoses [...] documented as of this encounter Care Teams Power Superintendent Relationship Specialty Start Date End Date Espinoza Thakur MD [address] [place] [address] [address] [place] [address] PCP - General 02/11/21 documented as of this encounter
--- OUTSIDE RECORDS SUMMARY | 2025-07-28 12:30 | XMS_ITS | Encounter Summary ---
Author Organization Healthcare Address [address] [place] [address] Care Team Providers Care Federal Agent Name Role Phone Espinoza Thakur MD Primary Care Provider [phone] Encounter Details Date Type Department Care Team (Late st Contact Info) Description 05/01/2025 Telephone [facility] [place] [address] [facility]. [address] [place] [address] Jordon Tidwell MD [address] [place] [address] Social History Tobacco Use Types [...] call to discuss Best contact number: Other: [phone] Optimal time of day to reach caller: [...] Description 08/21/2025 11:40 AM EST Office Visit [facility] Sleep Disorder Center [address]th [place] [address] Lavern Galdamez APRN [address] [place] [address] 09/10/2025 1:00 PM EST Office Visit [facility] [place] [address] [facility]. [address] [place] [address] Tanja Parsons MD [address] [place] [address] 09/25/2025 1:00 PM EST Office Visit [facility] Otolaryngology [address]rd [place] [address] Jesse Moffett MD [address] [facility] [address] [place] [address] 09/28/2025 11:30 AM EST Appointment [facility] Breast Care Center [facility] [place] [address] [address] [place] [address] 02/08/2026 12:30 PM EDT [facility] Medicine [facility] [address] [place] [address] Emi Orozco PA [address] [place] [address] 02/10/2026 12:20 PM EDT [facility] Women[facility] [address] 3[address] [place] [address] Hannah Tang MD [address] [place] [address] 2026 1:00 PM EDT Appointment Cardiac Imaging [address] [place] [address] 2026 2:40 PM EDT Office Visit [facility] [place] [address] [place] [address] Jordon Tidwell MD [address] [place] [address] documented as of this encounter [...] documented as of this encounter Care Teams Federal Agent Relationship Specialty Start Date End Date Espinoza Thakur MD [address] [place] [address] [address]1 [address]1 [place] [address] PCP - General 02/11/21 documented as of this encounter
--- OUTSIDE RECORDS SUMMARY | 2025-07-28 12:30 | XMS_ITS | Encounter Summary ---
Author Organization Healthcare Address [address] [place] [address] Care Team Providers Care Pantograph Engraver Name Role Phone Espinoza Thakur MD Primary Care Provider [phone] Encounter Details Date Type Department Care Team (Latest Contact Info) Description 06/19/2025 Travel Social History Tobacco Use Types Packs/Day [...] usual. Not at all 06/19/2025 9:52 AM LAURIT Ashley Varma Thoughts that you would be [...] Ashley Murrieta documented as of this encounter Plan of Treatment Upcoming Encounters Date Type Department Care Team (Late st Contact Info) Description 08/21/2025 11:40 AM EST [facility] [address]th [place] [address] Lavern Galdamez APRN [address] [place] [address] 09/10/2025 1:00 PM EST Office Visit [facility] [place] [address] [facility]. [address] [place] [address] Tanja Parsons MD [address] [place] [address] 09/25/2025 1:00 PM EST Office Visit [facility] Otolaryngology [address] 3rd [place] [address] Jesse Moffett MD [address] [place] [address] 09/28/2025 11:30 AM EST Appointment [facility] Breast Care [facility] Breast Care Center [place] [address] [address] [facility] [address] [place] [address] 02/08/2026 12:30 PM EDT Office Visit [facility] Medicine Specialties [address], [address] [place] [address] Emi Orozco PA [address] [facility] [address] [place] [address] 02/10/2026 12:20 PM EDT Office Visit [facility] Women's Health [address] [place] [address] Hannah Tang MD [address] [place] [address] 2026 1:00 PM EDT Appointment Cardiac Imaging [address] [place] [address] 2026 2:40 PM EDT Office Visit [facility] [place] [address] [place] [address] Jordon Tidwell MD [address] [place] [address] documented as of this encounter [...] documented as of this encounter Care Teams Pantograph Engraver Relationship Specialty Start Date End Date Espinoza Thakur MD [address] [place] [address] #1 [address]1 [place] [address] PCP - General 02/11/21 documented as of this encounter
[2025-07-28 13:00] LABS: Potassium 4.8 mmoL/L (3.5-5.1)
== END 2025-07-28 23:59 | disposition home or self-care (01) ==
LOC: LAB 12:28
PROVIDERS: PCP Family Medicine; Visit Provider Nurse Practitioner
DX: E87.6 Hypokalemia (principal)
CPT/HCPCS: 36415; 84132

== ENCOUNTER 2025-09-15 11:32 | Outpatient (CLI) | payer MEDICARE, OTHER, SELFPAY ==
--- OUTSIDE RECORDS SUMMARY | 2025-08-17 13:42 | XMS_ITS | Encounter Summary ---
Author Organization Healthcare Address [address] [place] [address] Care Team Providers Care Solar Thermal Installer Name Role Phone Espinoza Thakur MD Primary Care Provider [phone] Encounter Details Date Type Department Care Team (Latest Contact Info) Description 08/17/2025 1:42 PM EST - 08/17/2025 11:59 PM [facility] Hospital Encounter Cardiac Imaging [address] [place] [address] Pacemaker Discharge Disposition: Home or Self Care Social [...] (90 Base) MCG/ACT inhaler Inhale 2 puffs every 4 hours as needed for wheezing or shortness of breath. 10/20/2020 aspirin 81 MG EC tablet Take 1 tablet by mouth nightly. 09/17/2020 Calcium Carbonate-Vitamin D (OYSTER SHELL CALCIUM/D PO) Take 1 tablet by mouth daily. CHOLECALCIFEROL PO Take 1,000 Units by mouth daily. guaiFENesin (Mucinex) 600 MG 12 hr tablet Take 2 tablets by mouth 2 times a day as needed for cough or congestion. Do not crush, chew, or split. levothyroxine (Synthroid, Levoxyl) 125 MCG tablet Take 1 tablet by mouth daily before breakfast. 10/26/2012 metoprolol succinate XL (Toprol-XL) 25 MG 24 hr tabletIndications: NSVT (nonsustained ventricular tachycardia) (CMS/HCC) Take 0.5 tablets by mouth daily. 15 tablet 5 08/03/2025 montelukast (Singulair) 10 MG tablet Take 1 tablet by mouth nightly. 07/16/2017 norethindrone (Micronor) 0.35 MG tabletIndications: Encounter for initial prescription of contraceptive pills Take 1 tablet (0.35 mg) by mouth 1 (one) time each day. 84 tablet 3 12/26/2023 Pediatric Multiple Vit-C-FA (FLINSTONES GUMMIES OMEGA-3 DHA PO) Take 2 tablets by mouth 1 (one) time each day. warfarin (Coumadin) 1 MG tablet Take 1 tablet by mouth 4 times a week. Combine with 1 tablet of Warfarin 6mg for 7mg total on 4 days of each week, alternating with 6mg doses. 11/04/2024 warfarin (Coumadin) 6 MG tablet Take 1 tablet by mouth daily. Take as directed per After Visit Summary. Take with 1mg of warfarin at 1700 4x times a week. Take alone 3x times a week. Azelastine HCl 137 MCG/SPRAY solution 07/12/2022 5 budesonide-formote rol (Symbicort) 80-4.5 MCG/ACT inhaler Inhale 2 puffs 2 times a day. Rinse mouth with water after use to reduce aftertaste and incidence of candidiasis. Do not swallow. 10.2 g 3 06/29/2025 5 furosemide (Lasix) 40 MG tablet Take 1 tablet by mouth every morning. 11/21/2019 5 documented as of this encounter Plan of Treatment Upcoming Encounters Date Type Department Care Team (Late st Contact Info) Description 09/18/2025 1:00 PM EST Office Visit [facility] [place] 800 [facility]. [address] [place] [address] Jordon Tidwell MD [address] [place] [address] 09/25/2025 1:00 PM EST Office Visit [facility] Otolaryngology [address] [place] [address] Jesse Moffett MD [address] [place] [address] 09/28/2025 11:30 AM EST Appointment [facility] Breast Care Center Comprehensive Breast Care Center [facility] [address] [place] [address] 10/22/2025 1:40 PM EST Office Visit [facility] Sleep Disorder Center [address]th [place] [address] Lavern Galdamez APRN [address] [place] [address] 02/08/2026 12:30 PM EDT Office Visit [facility] Medicine Specialties [address] [place] [address] Emi Orozco PA [address] [place] [address] 02/10/2026 12:20 PM EDT Office Visit [facility] Women's Health [address] [place] [address] Hannah Tang MD [address] [place] [address] 03/11/2026 2:40 PM EDT Office Visit [facility] [place] [address] [facility]. [address] [place] [address] Tanja Parsons MD [address] [place] [address] 2026 1:00 PM EDT Appointment Cardiac Imaging [address] [place] [address] 2026 2:40 PM EDT Office Visit [facility] [place] 800 [facility]. [address] [place] [address] Jordon Tidwell MD [address] [place] [address] documented as of this encounter Procedures Procedure Name Priority Date/Time Associated Diagnosis Comments CARDIAC DEVICE CHECK - REMOTE - PACEMAKER Routine 08/17/2025 1:54 PM EST Pacemaker documented in this encounter Results * CARDIAC DEVICE CHECK - REMOTE - PACEMAKER (08/17/2025 1:54 PM EST) Anatomical Region Laterality Modality Other Narrative 08/17/2025 4:18 PM EST Biventricular pacemaker remote interrogation. Device successfully sensing [...] events since last clinic/remote report evaluation. Suellen Smith Debora MCCORMICK CV IMPLANTABLE CARDIAC DEV ICE PROCEDURES Final Result documented in this encounter Visit Diagnoses Diagnosis Pacemaker Cardiac [...] documented as of this encounter Care Teams Solar Thermal Installer Relationship Specialty Start Date End Date Espinoza Thakur MD [address] [place] [address] #1 [address]1 [place] [address] PCP - General 02/11/21 documented as of this encounter
--- OUTSIDE RECORDS SUMMARY | 2025-08-21 11:40 | XMS_ITS | Encounter Summary ---
Author Organization Healthcare Address [address] [place] [address] Care Team Providers Care Metal Pickling Equipment Operator Name Role Phone Espinoza Thakur MD Primary Care Provider [phone] Reason for Referral * Other Medical (Routine) - Pending Review Specialty Diagnoses / Procedures Referred By Neema burger Referred To Contact Sleep Medicine Diagnoses KALEIGH (obstructive sleep apnea) Procedures Adult Overnight Pulse Oximetry Lavern Galdamez APRN [address] [place] [address] Phone: tel: fax: Referral ID Status Reason Start Date Expiration Date Visits Requested Visits Authorized [id number] Pending Review Specialty Services Required 02/20/2027 1 1 Reason for Visit * Reason Comments Follow-up * Consultation (Routine) - Closed Specialty Diagnoses / Procedures Referred By Neema burger Referred To Contact Diagnoses KALEIHG (obstructive sleep apnea) Polina Granados MD [address] [place] [address] Phone: tel: fax: Referral ID Status Reason Start Date Expiration Date Visits Re quested Visits Authorized [id number] Closed 02/19/2025 08/21/2026 1 1 Encounter Details Date Type Department Care Team (Late st Contact Info) Description 08/21/2025 11:40 AM EST Office Visit [facility] [address] [place] [address] Lavern Galdamez APRN [address] [place] [address] KALEIGH (obstructive sleep apnea) (Primary Dx) Social [...] Sign Reading Time Taken Comments Blood Pressure 121/65 08/21/2025 11:00 AM EST Pulse 71 08/21/2025 11:00 AM EST Temperature - - Respiratory Rate - - Oxygen Saturation 95% 08/21/2025 11:00 AM EST Inhaled Oxygen Concentration - - Weight 103 kg (227 lb 1.2 oz) 08/21/2025 11:00 A M EST Height 149.9 cm (4' 11 ) 08/21/2025 11:00 AM EST Body Mass Index 45.86 08/21/2025 11:00 AM EST documented in this encounter Miscellaneous Notes * Progress Notes - Lavern Galdamez APRN - 08/21/2025 11:40 AM EST Subjective Dear Espinoza Bailey MD, I had the pleasure of seeing Sharona Sanchez at the [facility] with/for Follow-up. Visit Type: Established patient HPI Sharona Sanchez is a 40 y.o. female established patient who presents today for follow-up. Patient accompanied by family today. Patient initially established care with August 2024. Patient had a PSG in 2019 at [facility] showed KALEIGH with AHI 56.2, RDI 62.8 with Min O2 80%. Patient was also on supplemental oxygen, was at 2L NC, now at 5LNC. At that visit AHI 16, CPAP titration reccommended. Patient completed CPAP titration 12/01/24, optimal pressure seen at CPAP 10 cm H2O, and was recommended with 2L NC bled. Patient followed up January 2025, AHI 2.8 events/hr, good compliance. Returns today for follow-up. Patient obtained new CPAP machine two days ago but has not used it yet, has still been using DreamStation CPAP. Patient doing well with DreamStation, mother wanted to make sure that the machine was set correctly. Patient has not completed an overnight pulse ox. Patient uses FFM with cotton cover. 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 She is chronically anticoagulated due to chronic atrial arrhythmias and MVR.,KALEIGH on CPAP. PAP Data Card Download Data card download: 90 days >4 hour compliance: 97% Average use (days used): 8 hours 54 min Setting: CPAP 10 cm H2O with 2L bled Residual AHI: 9.4 Data card download: 30 days >4 hour compliance: 96% Average use (days used): 8 hours 38 min Setting: CPAP 10 cm H2O with 2L bled Residual AHI: 7.6 Past Medical History[1] Surgical History[2] Family History[3] Social History Tobacco Use Smoking status: Never Passive exposure: Never Smokeless tobacco: Never Substance Use Topics Alcohol use: No Comment: Alcoholic Drinks/day: Never Drank Alcohol Current Medications[4] All medications have been reviewed today. Allergies[5] Immunization History Administered Date(s) Administered Hep A, Adult 09/11/2018 Influenza, seasonal, injectable, preservative free 06/25/2024 Moderna Covid-19 Vaccine 12y+, Victor Hugo Protein, Preservative free 06/30/2025 Pfizer-BioNTech COVID-19 Vaccine (Valverde Cap) 12+ years (adela-sucrose) 06/01/2022 Pfizer-BioNTech COVID-19 Vaccine (Purple Cap) 12+ 11/03/2020, 11/25/2020, 07/28/2021 Pneumococcal Polysaccharide PPV23 05/06/2025 The following portions of the chart were reviewed this encounter and updated as appropriate: Tobacco Allergies Meds Problems Med Hx Surg Hx Fam Hx ROS Constitutional: No significant changes in weight Resp: No abnormal cough or shortness of breath Cardiac: No chest pain, palpitations Psych: No changes in mood Objective Visit Vitals BP 121/65 Pulse 71 Height and Weight Height: 149.9 cm (4' 11 ) Weight: 103 kg (227 lb 1.2 oz) BSA (Calculated - sq m): 2.07 sq meters BMI (Calculated): 45.84 Weight in (lb) to have BMI = 25: 123.5 Oxygen Therapy SpO2: 95 % Physical Exam Constitutional: no acute distress, well appearing and well nourished. BMI 45.86. Does not appear tired. Head and Face: normal symmetrical Eyes: sclera clear, no redness or discharge noted Neck: supple, symmetric, trachea midline Pulmonary: no increased WOB or SOA Musculoskeletal: gait and station were normal Neurologic: alert and oriented to person, place, and time. Judgement and insight normal. Memory intact. Psychiatric: Mood and affect appropriate. Assessment/Plan Problem List Items Addressed This Visit None Visit Diagnoses KALEIGH (obstructive sleep apnea) - Primary Relevant Orders Adult Overnight Pulse Oximetry Sleep PAP Supplies Discussion Summary: KALEIGH, severe AHI 56.2 events/hr -Well controlled on current CPAP settings 10 cm H2O. Excellent compliance with CPAP therapy and denies any problems with mask use or pressure. -Based on residual AHI and subjective symptoms, the pressure is set appropriately. Patient continues to benefit from CPAP therapy. -Will have patient start on new CPAP. -Will order home overnight oxygen test to evaluate efficacy. -Script renewed with supplies to [facility] for one year. Encouraged follow-up with PCP to manage other comorbidities. -Follow-up in 31-90 days in sleep clinic. Discussed the importance of following up with us in the clinic to address issues, evaluate compliance, and make any adjustments to pressure. -No further questions at this time. Encouraged patient to call sooner with any concerns. Counseling Documentation: The patient was counseled regarding cpap education, cpap troubleshooting, DME education, impressions, and importance of compliance with treatment. Reviewed data card download and discussed impressions of data for sleep apnea. Education provided was verbal counseling. Additional time was spent in care coordination including medical record review. The total time of encounter was 38 minutes. [1] Past Medical History: Diagnosis Date A-fib CHF (congestive heart failure) Conversions - Other Allergies Conversions - Other Hypothyroidism Conversions - Other Obstructive Sleep Apnea Conversions - Other Trisomy 21 (Down Syndrome) Conversions - Other Valvular Heart Disease Disease of thyroid gland Down syndrome H/O tricuspid valve annuloplasty 08/29/23 KALEIGH on CPAP [2] Past Surgical History: Procedure Laterality Date INSERT / REPLACE / REMOVE PACEMAKER N/A Permanent Pacemaker Environmental Services Technician [facility] from [employer] MITRAL VALVE REPLACEMENT OTHER SURGICAL HISTORY N/A Tricuspid Valve Annuloplasty from [employer] OTHER SURGICAL HISTORY N/A History of cardiac pacemaker from [employer] TONSILECTOMY, ADENOIDECTOMY, BILATERAL MYRINGOTOMY AND TUBES N/A Tonsillectomy With Adenoidectomy from [employer] [3] Family History Problem Relation Name Age of Onset Hypercholesterolemia Mother Hypertension Mother Thyroid disease Mother Heart attack Father Diabetes Brother Mental illness Brother [4] Current Outpatient Medications Medication Sig Dispense Refill albuterol 108 (90 Base) MCG/ACT inhaler Inhale 2 puffs 1 (one) time each day if needed. aspirin 81 MG EC tablet Take 1 tablet (81 mg) by mouth every night. budesonide-formoterol (Symbicort) 80-4.5 MCG/ACT inhaler Inhale 2 puffs 2 times a day. Rinse mouth with water after use to reduce aftertaste and incidence of candidiasis. Do not swallow. 10.2 g 3 calcium-vitamin D 500-200 MG-UNIT tablet Take 1 [...] MG 24 hr tablet Take 0.5 tablets by mouth daily. 15 tablet 5 montelukast [...] MCG/SPRAY solution (Patient not taking: Reported on 08/21/2025) No current facility-administered medications for this visit. [5] Allergies Allergen Reactions Doxycycline Unknown - Patient states they do not know rxn details documented in this encounter Plan of Treatment Upcoming Encounters Date Type Department Care Team (Late st Contact Info) Description 09/18/2025 1:00 PM EST Office Visit [facility] [place] [address] [place] [address] Jordon Tidwell MD [address] [place] [address] 09/25/2025 1:00 PM EST Office Visit [facility] [address] [place] [address] Jesse Moffett MD [address] [place] [address] 09/28/2025 11:30 AM EST Appointment [facility] [address] [place] [address] 10/22/2025 1:40 PM EST Office Visit [facility] [address] [place] [address] Oexmann, Lavern Violeta, BREAKFAST MANAGER [address] [place] [address] 02/08/2026 12:30 PM EDT Office Visit [facility] [address] [place] [address] Emi Orozco PA [address] [place] [address] 02/10/2026 12:20 PM EDT Office Visit [facility] [address] [place] [address] Hannah Tang MD [address] [place] [address] 03/11/2026 2:40 PM EDT Office Visit [facility] [place] [address] [facility] [place] [phone] Tanja Parsons MD [address] [place] [address] 2026 1:00 PM EDT Appointment Cardiac Imaging [address] [place] [address] 2026 2:40 PM EDT Office Visit [facility] [address] [place] [phone] Jordon Tidwell MD [address] [place] [address] Scheduled Orders Name Type Priority Associated Diagnoses Orde r Schedule Adult Overnight Pulse Oximetry Sleep Center Routine KALEIGH (obstructive sleep apnea) 1 Occurrences starting 08/21/2025 until 02/22/2027 documented as of this encounter Visit Diagnoses Diagnosis KALEIGH (obstructive sleep apnea)- Primary Obstructive sleep apnea (adult) (pediatric) documented in this encounter Additional Health Concerns Assessment Noted Time PHQ-9 Depression Total Score: 0 06/19/20 25 9:52 AM EDT A fall risk assessment has been complete d for the patient 08/21/2025 11:01 AM EST A Body Mass Index follow-up plan has been documented for the patient 08/21/2025 1:08 PM EST documented as of this encounter Care Teams Metal Pickling Equipment Operator Relationship Specialty Start Date End Date Espinoza Thakur MD [address] [place] [address] [address]1 [address] [place] [address] PCP - General 02/11/21 documented as of this encounter
--- OUTSIDE RECORDS SUMMARY | 2025-09-05 22:09 | XMS_ITS | Encounter Summary ---
Author Organization [facility] Address [address] [place] [address] Care Team Providers Care Electrical Tech Name Role Phone Espinoza Thakur MD Primary Care Provider Reason for Referral * Consultation (Routine) - Authorized Specialty Diagnoses / Procedures Referred By Neema burger Referred To Contact Cardiology Diagnoses Acute diastolic heart failure secondary to hypertrophic obstructive cardiomyopathy Risa Crisostomo MD [address] [place] [address] Phone: tel: fax: Jordon Tidwell MD [address] [place] [address] Phone: tel: fax: Referral ID Status Reason Start Date Expiration Date Visits Requested Visits Authorized [id number] Authorized Specialty Services Required 09/08/2025 03/10/2027 1 1 Reason for Visit * Reason Comments Shortness of Breath * Auth/Cert (Routine) Specialty Diagnoses / Procedures Referred By Neema burger Referred To Contact Diagnoses Shortness of breath Jasbir Khalil MD [address] [place] [address] Phone: tel: fax: [facility] A Emergency Department [address] [place] [phone] Phone: tel: Referral ID Status Reason Start Date Expiration Date Visits Re quested Visits Authorized [id number] 1 1 Encounter Details Date Type Department Care Team (Latest Contact Info) Description 09/05/2025 10:09 PM EST - 09/08/2025 1:46 PM EST Hospital Encounter [facility] H Inpatient [address] [place] [address] Vitor Hankins MD [address] [place] [address] Jasbir Khalil MD [address] [place] [address] Armando Dickinson MD [address] [place] [address] Risa Crisostomo MD [address] [place] [address] Shortness of breath (Primary Dx); [...] any time in the past 12 m [facility], were you homeless or living in a senior living (including now)? No 09/09/2025 [facility] Utilities Answer Date Recorded In the [...] documented in this encounter Functional Status * Question Answer Date of Assessment Author Precautions Environmental surveillance 09/08/2025 12: 00 PM Lian Vo RN * AUDIT-C Score Answer Date of Assessment Author 0 09/10/2025 1:39 PM Cheryl Vo * Question Answer Date of Assessment Author Q1: How often do you have a drink containing alcohol? Never 09/10/2025 1:39 PM Jasmyn Vo Q2: How many drinks containing alcohol do you have on a typical day when you are drinking? Patient does not drink 09/10/2025 1:39 PM Jasmyn Vo Q3: How often do you have six or more drinks on one occasion? Never 09/10/2025 1:39 PM Jasmyn Vo * Question Answer Date of Assessment Author Scale Used Alirio 09/06/2025 12:00 PM EST Earl Yeung RN * Question Answer Date of Assessment Author Precautions Environmental surveillance 09/08/2025 12: 00 PM Lian Vo RN * Over the past 2 weeks, how often have you been bothered by any of the following problems? Question Answer Date of Assessment Author Little interest or pleasure in doing things Not at all 09/10/2025 1:43 PM Jasmyn Vo Feeling down, depressed, or hopeless Not at all 08/31 1:43 PM Jasmyn Vo Patient Health Questionnaire-2 Score 0 08/31 1:43 PM Jasmyn Vo * Question Answer Date of Assessment Author Trouble falling or staying a sleep, or sleeping too much Not at all 09/10/2025 1:43 PM Jasmyn Vo Feeling tired or having ab le energy Not at all 09/10/2025 1:43 PM Jasmyn Vo Poor appetite or overeating Not at all 09/10/2025 1: 43 PM Jasmyn Vo Feeling bad about yourself - or that you are a failure or have let yourself or your family down Not at all 09/10/2025 1:43 PM Jasmyn Vo Trouble concentrating on thi ngs, such as reading the newspaper or watching television Not at all 09/10/2025 1:43 PM Jasmyn Vo Moving or speaking so slowly that other people could have noticed. Or the opposite - being so fidgety or restless that you have been moving around a lot more than usual Not at all 09/10/2025 1:43 PM Jasmyn Vo Thoughts that you would be b mirella off or hurting yourself in some way Not at all 09/10/2025 1:43 PM Jasmyn Vo Patient Health Questionnaire-9 Score 0 08/31 1:43 PM Jasmyn Vo * Calculated C-SSRS Risk Score (Lifetime/Recent) Answer Date of Assessment Author No Risk Indicated 09/10/2025 1:43 PM Jasmyn Vo * How difficult have these problems made it for you to do your work, take care of things at home, or get along with other people? Answer Date of Assessment Author Not difficult at all 09/10/2025 1:43 PM Jasmyn Church * Question Answer Date of Assessment Author 1. Wish to be (Past 1 Month) No 025 1:43 PM Jasmyn Vo 2. Non-Specific Active Suici jon Thoughts (Past 1 Month) No 09/10/2025 1:43 PM Jasmyn Vo 6. Suicidal Behavior (Lifetime) No 1:43 PM Jasmyn Vo documented as of this encounter Mental Status * Question Answer Entry Date Author Precautions Environmental surveillance 09/08/2025 12: 00 PM Lian Vo, RN * Question Answer Entry Date Author Scale Used Alirio 09/06/2025 12:00 PM Earl Evans RN documented in this encounter Medications at [...] 24 hr tabletIndications: NSVT (nonsustained ventricular tachycardia) (CMS/[facility]) Take 0.5 tablets by mouth daily. 15 [...] 1 (one) time each day. sodium chloride (Pilsen) 0.65 % nasal spray Administer 1 spray [...] PCP name and Address: Espinoza Thakur MD [address] [place] [address] #1 [address]1 / [place] [address] Referring provider name and address: No referring [...] 0.65 % nasal spray Commonly known as: P[place]en Administer 1 spray into each nostril nightly. [...] Your Medications These medications were sent to [facility] - [place], [place] - [address], [facility] [address] furosemide 40 MG tablet Discharge Diagnosis Medical Problems Active and Resolved Hospital Problems Hospital * (Principal) Shortness of breath Post Discharge Instructions FU with PCP , cardiology and repeat labs Outpatient Follow-Up Future Appointments Date Time Provider Department Center 09/10/2025 1:00 PM Tanja Parsons MD [facility] 09/25/2025 1:00 PM Jesse Moffett MD [facility] 09/28/2025 11:30 AM [facility] MAMMO 3 MAMMCHWHTAMOL [place] 10/22/2025 1:40 PM RudolphLavern, PIPELINE ENGINEER [facility] 02/08/2026 12:30 PM [facility]rozco [facility] 02/10/20[facility] 12:20 PM Hannah Tang [facility] 2026 1:00 PM [facility] 2026 2:40 PM Jordon Tidwell MD [facility] Test Results Pending At [...] from the original note were not included. 54658 Low-Salt Choices Eating salt (sodium) can make [...] ? Low-sodium whole wheat bread or an Kazakh muffin. Look for sodium content on Nutrition Facts labels. ? Low-fat milk or yogurt ? Unsalted eggs ? Shredded wheat ? [place] tortillas ? Unsalted steamed rice ? Regular [...] vegetables, soups, and fish not labeled as ke-zowk-lhqre or reduced sodium ? Packaged gravies and sauces ? Olives, pickles, and relish ? Bottled salad dressings For snacks and desserts ? Yogurt ? Low-salt or wp-dfof-lmfws granola ? Fresh fruit and vegetables ? Unsalted, air-popped popcorn ? Unsalted nuts or seeds Stay away from ? Pies and cakes ? Packaged dessert mixes ? Pizza ? Canned and packaged puddings ? Pretzels, chips, crackers, and nuts--unless the label says unsalted Last Reviewed Date: 2025 00:00:00 ?? 5823-1263 The [employer]. All rights reserved. This information is not intended as a substitute for professional medical care. Always follow your healthcare professional's instructions. * Sharri VarnerMICHAEL - Lian Long RN - 09/08/2025 11:41 AM EST Images from the original note were not included. [id number] Low Salt Diet - 2 Grams a [...] matzoh crackers Avoid: Salted crackers, pretzels, popcorn; serbian toast, pancakes, commercial muffins Fruits and Desserts [...] substitutes for salt include: fresh herb blends, MrsLan Ortiz seasoning, Tabasco, lemon, garlic (not garlic salt), [...] Clinical Center, National Institutes of Health] ?? 3084-0607 The [employer]. All rights reserved. This information is not intended as a substitute for professional medical care. Always follow your healthcare professional's instructions. This information has been modified by your health care provider with permission from the publisher. * Sharri VarnerMICHAEL - Lian Long RN - 09/08/2025 11:41 AM EST Images from the original note were not included. 11219 Tips for Using Less Salt Most people [...] low-sodium or no-sodium. ? Choose reduced-sodium or xc-cdve-kgrjz versions of condiments, canned vegetables, broths, and soups. ? Choose unsalted nuts and seeds. In the kitchen ? Don't add salt to food when you're cooking. Season with flavorings like spices, herbs, vinegar, onion, garlic, pepper, salt-free herbal blends, and lemon or the [place] juice. ? Use a cookbook that has [...] the table. Eating out ? Tell the senior manager you're on a low-salt diet. Ask questions [...] salt. Last Reviewed Date: 2025 00:00:00 ?? 4961-3237 [employer]. All rights reserved. This information is not intended as a substitute for professional medical care. Always follow your healthcare professional's instructions. * Sharri OnFHIR - Lian Long RN - 09/08/2025 11:41 AM EST Images from the original note were not included. Heart Failure: Limiting Sodium - Video To view the video go to this web address: [email or web address] Or, scan this QR code with your smart phone ?? [facility] * Progress Notes - Dionne Spear RN - 09/08/2025 11:08 AM EST Case Management Discharge Note Sharona Sanchez 40 y.o. female CSN: [id number] Admission: 09/05/2025 10:09 PM Primary Problem: Shortness of breath Primary Domain Architect: Primary Caregiver: Family Assistance Available at Discharge: Current Outpatient/Agency/Support Group: [facility] Availability of Care Givers (#Hours): 24 hours (lives with mother who is available 23/04) Family/Domain Architect(s) Willingness Assessed to care for patient at home: Yes Family/Domain Architect(s) Readiness Assessed to care for patient at home: Yes Housing Circumstances-Z Codes: Housing Circumstances (select all that apply): None Applicable Patient Referred to Financial or Community Resources: No referrals needed at this time. Discharge Facility/Level of Care Needs: Discharge Facility/Level of Care Needs: 1-Home or Self Care Patient's Choice of Community Agency(s): Patient's Choice of Community Agency(s): Current with [facility] Patient/Family Anticipated Services at Transition: Patient/Family Anticipated Services at Transition: outpatient care, durable medical equipment (Portable Oxygen to be delivered to hospital for discharge by [facility]. Will followup with PCP.) DME/Equipment Needed after Discharge: Equipment Currently Used at Home: Cpap, oxygen ([facility] oxygen) Equipment Needed After Discharge: oxygen (Portable oxygen tank for discharge arranged through [facility].) Readmission Within the Last 30 Days: Readmission Within the Last 30 Days: no previous admission in last 30 days Medicare Documentation: Medicare Second Notice?: Yes Date Second Notice Completed: 09/08/25 Time Second Notice Completed: 939 Medicare Second Notice Recieved By: patients sister Follow-up: Jordon Tidwell MD [address] [place] [phone] [facility] provides oxygen and CPAP. [...] Having pulmonary edema. Diuresed and improved. Per MD, ot medically ready for discharge. Portable oxygen tank for transport arranged with Marycarmen at [facility]. Should be delivered by 1 pm. Will fax DC summary to PCP when available. No other discharge needs communicated. Dionne Spear RN * Lee Ann Ruiz, PharmD - 09/08/2025 11:00 AM EST Images from the original note were not included. [id number] Warfarin IMPORTANT WARNING: Warfarin may cause severe [...] doctor or pharmacist will give you the athlete manager's patient information sheet (Medication Guide) when you begin treatment with warfarin and each time you refill your prescription. Read the information carefully and ask your doctor or pharmacist if you have any questions. You can also visit the Food and Drug Administration (FDA) website (https://www.fda.gov/downloads/Drugs/DrugSafety/omc770238.pdf) or the athlete manager's website to obtain the Medication Guide. Talk [...] amounts of vitamin K-containing food on a mixg-nh-kpuq basis. Do not eat large amounts of [...] be awakened, immediately call emergency services at 631. Symptoms of overdose may include the following: [...] of all of the prescription and nonprescription (yufd-mqj-jntjern) medicines, vitamins, minerals, and dietary supplements you [...] or pharmacist about specific clinical use. The [place] [employer] represents that the information provided hereunder was formulated with a reasonable standard of care, and in conformity with professional standards in the field. The [place] [employer]. makes no representations or warranties, express or implied, including, but not limited to, any implied warranty of merchantability and/or fitness for a particular purpose, with respect to such information and specifically disclaims all such warranties. Users are advised that decisions regarding drug therapy are complex medical decisions requiring the independent, informed decision of an appropriate health critical care registered nurse, and the information is provided for informational purposes only. The entire monograph for a drug should be reviewed for a thorough understanding of the drug's actions, uses and side effects. The [place] [employer] does not endorse or recommend the use of any drug.The information is not a substitute for medical care. AHFS?? Patient Medication Information?. ?? Copyright, 2023. The [employer] [employer]System Pharmacists??, [address], [address], [place], [place]. All Rights Reserved. Duplication for commercial use must be authorized by [facility]. Selected Revisions: March 15, 2017. AHFS?? Patient [...] alternating with warfarin 7mg every other day [facility] Warfarin Dosing Protocol Followed?: Yes Bridging [...] Review Outcome: Ongoing, Progressing Flowsheets (Taken 09/08/2025 0736) Progress: improving Outcome Evaluation: poc reviewed Plan of Care Reviewed With: patient caregiver Goal: Patient-Specific Goal (Individualized) Outcome: Ongoing, Progressing Flowsheets (Taken 09/08/2025 0736) Patient/Family-Specific Goals (Include Timeframe): free from falls [...] Care Review Outcome: Ongoing, Progressing Flowsheets (Taken 09/08/2025530) Progress: improving Outcome Evaluation: plan of care [...] Identify and Manage Fall Risk Flowsheets (Taken 09/08/2025399) Safety Promotion/Fall Prevention: activity supervised assistive device/personal [...] sealant/moisture barrier applied transparent dressing maintained Taken 09/08/2025399 Body Position: weight shifting Intervention: Prevent and Manage VTE (Venous Thromboembolism) Risk Flowsheets (Taken 09/08/2025399) VTE Prevention/Management: bilateral SCDs (sequential compression devices) [...] Intervention: Promote Airway Secretion Clearance Flowsheets (Taken 09/08/2025 0531) Airway Clearance/Ventilation Strategies: deep breathing exercises oxygen therapy in use Goal: Optimal Gas Exchange Outcome: Ongoing, Progressing Intervention: Optimize Oxygenation and Ventilation Flowsheets (Taken 09/08/2025 0531) Airway Clearance/Ventilation Strategies: deep breathing exercises oxygen therapy in use * Progress Notes - Dionne Spear RN - 09/07/2025 2:25 PM EST Case Management Adult Initial Progress Note Sharona Sanchez 40 y.o. female CSN: [id number] Admission: 09/05/2025 10:09 PM Primary Problem: Shortness of breath Director Of Employee Development reviewed chart and spoke with patient and patient's mother at bedside to complete thisInitial Case Management Assessment. Patient with Trisomy 21, but able to answer almost all questions appropriately. PCP: Espinoza Thakur MD Emergency Contact: Extended Emergency Contact Information Primary Emergency Contact: LAISHA MAGALLON Mobile Relation: Sister Preferred language: Kazakh Secondary Emergency Contact: Chelsy Sanchez Relation: Mother Insurance: Primary Visit Coverage Payer Plan Sponsor Code Group Number Group Name MEDICARE MEDICARE A & B -- -- -- Primary Visit Coverage Subscriber Subscriber ID Subscriber Name Subscriber [facility] Subscriber Address [id number] SHARONA SANCHEZ [id number] [place] [address] Secondary Visit Coverage Payer Plan Sponsor Code Group Number Group Name [employer] MEDICARE SUPPLEMENT -- -- -- Secondary Visit Coverage Subscriber Subscriber ID Subscriber Name Subscriber [facility] Subscriber Address [id number] SHARONA SANCHEZ [id number] [place] [address] Patient information: Primary Caregiver: Family Accompanied by/Relationship: mother Support System: Immediate family Daily Living Activities: Functional Status: Moderate assistance (mother assists with bathing, some dressing) Living Arrangements: Parent/Gaurdian (Lives with mother) Type of Residence: Private residence, Single Level (zero entry steps) [address] [place] [address] Smoker in the Home?: No Current DME: Equipment Currently Used at Home: oxygen, Cpap ([facility] provides oxygen and CPAP) Income Information: Income [...] HD and HI Living Will/Advance Directive/Power of Night Filler /Guardian: Have you reviewed your Advance Directive [...] in 2-4 Days * Progress Notes - Reyes-Lee Ann Cunha, PharmD - 09/07/2025 10:25 AM EST Antithrombosis [...] Warfarin 7mg daily altnerating with 6mg daily [facility] Warfarin Dosing Protocol Followed?: Yes Ordered [...] dose Specify Warfarin Dose: 6 mg daily [facility] Warfarin Dosing Protocol Followed?: Yes Bridging Agent in Conjunction With Warfarin? : Yes Ordered Agents: Enoxaparin Bridging Agent Dose: 100 mg SQ BID INR Monitoring Frequency: Monitor INR daily Patient Education : Incomplete Will continue to follow patient's clinical progress daily. Radha Hammond PharmD 09/06/2025 10:47 AM * H&P - Amadou Sparrow APRN, DNP - 09/06/2025 6:23 AM ESTAssociated Order(s): Consult to [facility] Images from the original note were not included. Consult to [facility] Consult performed by: Amadou Sparrow APRN, DNP Consult ordered by: Freya Lopez APRN Reason for consult: Acute acute hypoxic [...] desaturation with exercise, hypothyroid, who presents to [facility] on 09/05/2025 with hypoxia HPI was provided [...] 09/05/2025, patient and mother attended a birthday green party. The mother reports a malfunction of the [...] A, Flu B, and RSV - Rapid [[id number]] (Normal) Collected: 09/05/25 2254 Order Status: Completed [...] This test was performed on the [employer]pert [employer] SARS CoV-2 Plus assay test, a PCR- [...] desaturation with exercise, hypothyroid, who presents to [facility] on 09/05/2025 with hypoxia Problems #Acute on [...] Center 09/10/2025 1:00 PM Tanja Parsons MD [facility] 09/25/2025 1:00 PM Jesse Moffett MD [facility] 09/28/2025 11:30 AM [facility] 10/22/2025 1:40 PM Lavern Galdamez [facility]N [facility] 02/08/2026 12:30 PM Em[facility]rozco PA [facility] 02/10/2026 12:20 PM Hannah Tang MD [facility] 2026 1:00 PM [facility] 2026 2:40 PM Jordon Tidwell MD [facility] Amadou Sparrow APRN, DNP [1] Past Medical History: Diagnosis Date A-fib [...] REPLACE / REMOVE PACEMAKER N/A Permanent Pacemaker At Risk Specialist [facility] MITRAL VALVE REPLACEMENT OTHER SURGICAL HISTORY N/A Tricuspid Valve Annuloplasty from [employer] OTHER SURGICAL HISTORY N/A History of cardiac pacemaker from [employer] TONSILECTOMY, ADENOIDECTOMY, BILATERAL MYRINGOTOMY AND TUBES N/A Tonsillectomy With Adenoidectomy from [employer] [3] Family History Problem Relation Name Age [...] modalities * ED Provider Notes - Freya Lopez, PIPELINE ENGINEER - 09/05/2025 9:51 PM EST Images from [...] began earlier today while at a birthday green party. 02 taken by mother noted 62% on room air. Mother noted patients lips turning blue and increased respirations. Patient has home oxygen concentrator and wears home 02 at night, reports applying oxygen with improvements in symptoms. No reported fever. Non productive. Compliant with coumadin therapy. History provided by: Patient vault installer used: No Patient History Past Medical History[1] [...] intact. Psychiatric: Mood and Affect: Mood normal. [place] Coma Scale Score: 15 ED Course & [...] tests were ordered: ED Medication Administration from 09/05/20252150 to 09/06/2025 0637 Date/Time Order Dose Route [...] All Other Orders Ordered Status Ordering Provider 09/06/25 06 Intake and output Every 6 hours Acknowledged AMADOU SPARROW 09/06/25 0637 Vital Signs Every 4 hours Placed in And Linked Group Acknowledged AMADOU SPARROW 09/06/25636 Pulse Oximetry Every 4 hours Placed in And Linked Group Acknowledged MADUJIBEYA, AMADOU N 09/06/25 06 Weigh patient Daily Acknowledged WILBERBEYA AMADOU N 09/06/25636 Continuous Pulse Oximetry (Needs additional Telemetry Order too) Until discontinued Acknowledged LALAUOMAYRABEGRACE AMADOU N 09/06/25636 Telemetry Monitoring for Acute Heart Failure/Pulmonary Edema Until discontinued Acknowledged BHAVESHJIBEYA AMADOU N 09/06/25636 Adjust HOB (specify) 45 degrees Once Acknowledged LALAUOMAYRABEGRACE, AMADOU N 09/06/25636 Sequential compression device Until discontinued Comments: SCDs must be in place and turned on EXCEPT when ACTIVELY ambulating. Acknowledged KYARA AMADOU N 09/06/25636 Do Not Give Nicotine Replacement Until discontinued Acknowledged KAYRA AMADOU N 09/06/25636 Full code Continuous Acknowledged WILBERBEGRACE AMADOU N 09/06/25636 Adult diet Diet texture: Regular; Sodium restriction: 2,000 mg Na; Fat restriction: Cardiac; Dietary fluid restriction / 24h: 1800 ml Fluid Diet effective now Acknowledged KYARA AMADOU N 09/06/25636 Admit to inpatient Once Acknowledged WILBERBEGRACE AMADOU N 09/06/25636 Mobility Orders Until discontinued Acknowledged LALAUJIBEGRACE AMADOU N 09/06/25636 Notify physician (specify parameters) Until discontinued Acknowledged LALAUJIBEYA AMADOU N 09/06/25 06 Insert peripheral IV Once Placed in And Linked Group Acknowledged MADUJIBEYA, AMADOU N 09/06/25 06 Saline lock IV Once Placed in And Linked Group Acknowledged MADUJIBEYA, AMADOU N 09/06/25 05 Consult to [facility] Once Specialty: Internal Medicine Provider: (Not yet assigned) Acknowledged FREYA LOPEZ P 09/06/25 0554 ED to floor bed request Once Completed FREYA LOPEZ P 09/06/25 0522 Blood gas panel, venous STAT Final result FREYA LOPEZ P 09/06/25 0127 Troponin T, High Sensitivity, 2 Hour, Plasma PROCEDURE ONCE Final result FREYA LOPEZ P 09/06/25 0027 Insert peripheral IV Once Acknowledged FREYA LOPEZ P 09/06/25 0027 Until discontinued Canceled FREYA LOPEZ P 09/06/25 0027 Continuous pulse oximetry Until discontinued Acknowledged FREYA LOPEZ P 09/06/25 0027 Vital signs per unit protocol Per unit protocol Acknowledged FREYA LOPEZ P 09/06/25 0026 hCG qualitative STAT Final result FREYA LOPEZ P 09/06/25 0026 Troponin now and 120 min STAT Final result FREYA LOPEZ P 09/06/[address] Angio Pulmonary Embolism Once Final result FREYA LOPEZ P 09/06/25 0021 Initiate contact isolation Continuous Comments: Added via Instant Order OPA Acknowledged BPA, INSTANT ORDERS 09/06/25 0021 Initiate N95 isolation Continuous Comments: Added via Instant Order OPA Acknowledged BPA, INSTANT ORDERS 09/06/25 0021 Initiate eye protection Continuous Comments: Added via Instant Order OPA Acknowledged BPA, INSTANT ORDERS 09/05/25 2325 Urinalysis Microscopic Examination Once Final result FREYA LOPEZ P 09/05/25 2251 Urinalysis with reflex microscopic AND reflex culture (IF UTI SUSPECTED) STAT Final result FREYA LOPEZ P 09/05/25 2251 Urinalysis with reflex microscopic (Culture NOT Included) PROCEDURE ONCE Final result FREYA LOPEZ P 09/05/25 2252 Urine Parikh Panel PROCEDURE ONCE Final result FREYA LOPEZ P 09/05/25 2240 Protime-INR STAT Final result FREYA LOPEZ P 09/05/25 2202 Hepatitis C Antibody - ED Once Final result MYKEL JUAREZ 09/05/252201 ED Protocol - HIV 1/2 Antibody/Antigen Screen Once Final result MYKEL JUAREZ 09/05/252201 ED HIV 1/2 Antibody/Antigen Screen w/Reflex to HIV 1/2 Differentiation PROCEDURE ONCE Final result MYKEL JUAREZ 09/05/252201 SARS-CoV-2, Flu A, Flu B, and RSV - Rapid STAT Final result MYKEL JUAREZ 09/05/252201 CMP STAT Final result MYKEL JUAREZ 09/05/252201 EKG now - STAT (adult) Once Preliminary result MYKEL JUAREZ 09/05/252201 CBC STAT Final result MYKEL JUAREZ 09/05/252201 BNP STAT Final result MYKEL JUAREZ 09/05/252201 Magnesium STAT Final result MYKEL JUAREZ 09/05/252201 Thyroid Stimulating Hormone, Plasma STAT Final result MYKEL JUAREZ 09/05/252201 Free T4, Plasma STAT Final result MYKEL JUAREZ 09/05/252201 XR Chest 1 View One time imaging Final result MYKEL JUAREZ ED Course as of 09/06/25 0655 Sat [...] difficult to exclude. [GG] [place] Sep 06, 2025 0027 SARS CoV-2/COVID-19 RNA PCR Result: Not Detected [...] [GG] ED Course User Index [GG] Freya Lopez, ANNY Clinical Impressions as of 09/06/25 0655 Shortness [...] Physician: JASBIR KHALIL [[id number]] Provider Care Team:: [facility] [189] Are they the primary team?: Yes [1] - PIT Date: 09/05/2025 Scribe Attestation: This note was dictated to me, Louis Alvarenga, acting as a scribe for Dr. Mykel Juarez MD. Attending Attestation: The documentation was recorded [...] REPLACE / REMOVE PACEMAKER N/A Permanent Pacemaker At Risk Specialist [facility] MITRAL VALVE REPLACEMENT OTHER SURGICAL HISTORY N/A Tricuspid Valve Annuloplasty from [facility] OTHER SURGICAL HISTORY N/A History of cardiac pacemaker from [employer] TONSILECTOMY, ADENOIDECTOMY, BILATERAL MYRINGOTOMY AND TUBES N/A Tonsillectomy With Adenoidectomy from [employer] [3] Family History Problem Relation Name Age [...] they do not know rxn details Freya Lopez APRN 09/06/25 0655 Cosigned by Vitor Hankins [...] Description 09/18/2025 1:00 PM EST Office Visit [facility] [place] [address] [place] [address] Jordon Tidwell MD [address] [place] [address] 09/25/2025 1:00 PM EST Office Visit [facility] [address] [place] [id number] Jesse Moffett MD [address] [place] [address] 09/28/2025 11:30 AM EST Appointment [facility] Breast Care Center Comprehensive Breast Care Center [facility] [address] [place] [address] 10/22/2025 1:40 PM EST Office Visit [facility] Sleep Disorder Center [address] [place] [address] Lavern Galdamez, PIPELINE ENGINEER [address] [place] [address] 02/08/2026 12:30 PM EDT Office Visit [facility] Medicine Specialties [address] [place] [address] Emi Orozco PA [address] [place] [address] 02/10/2026 12:20 PM EDT Office Visit [facility] Women's Health [address] [place] [address] Hannah Tang MD [address] [place] [address] 03/11/2026 2:40 PM EDT Office Visit [facility] [place] [address] [facility] [place] [phone] Tanja Parsons MD [address] [place] [address] 2026 1:00 PM EDT Appointment Cardiac Imaging [address] [place] [address] 2026 2:40 PM EDT Office Visit [facility] [place] [address] [facility] [place] [address] Jordon Tidwell MD [address] [place] [phone] Scheduled Orders Name Type Priority Associated Diagnoses [...] LAB COAGULATION METHOD 09/08/2025 5:43 AM EST [facility] INR 2.4(H) 0.9 - 1.1 LAB COAGULATION METHOD 09/08/2025 5:43 AM EST [facility] Blood Venous blood specimen / Unknown Venipuncture / Unknown 09/08/2025 5:06 AM EST 09/08/2025 5:13 AM EST Narrative [facility] - 09/08/2025 5:43 AM EST OPTIMAL INR RANGES FOR PATIENT ON ORAL ANTICOAGULANT THERAPY Prevention of venous thromboembolism INR 2.0 to 3.0 In patients with heart disease: Atrial fibrillation INR 2.0 to 3.0 Valvular heart disease INR 2.0 to 3.0 Tissue heart valves INR 2.0 to 3.0 Mechanical prosthetic valves INR 2.5 to 3.5 Prevention of recurrent HI INR 2.5 to 3.5 us Armando Dickinson MD LAB BLOOD ORDERABLES Final Res ult [facility] [address] [place] [address] * (ABNORMAL) Prothrombin Time/INR (09/07/2025 3:54 AM EST) Prothrombin Time 26.6(H) 12.0 - 14.3 sec 09/07/2025 4:13 AM EST [facility] INR 2.5(H) 0.9 - 1.1 09/07/2025 4:13 AM EST [facility] Blood Venous blood specimen / Unknown Venipuncture / Unknown 09/07/2025 3:54 AM EST 09/07/2025 3:58 AM EST Narrative [facility] - 09/07/2025 4:13 AM EST OPTIMAL INR RANGES FOR PATIENT ON ORAL ANTICOAGULANT THERAPY Prevention of venous thromboembolism INR 2.0 to 3.0 In patients with heart disease: Atrial fibrillation INR 2.0 to 3.0 Valvular heart disease INR 2.0 to 3.0 Tissue heart valves INR 2.0 to 3.0 Mechanical prosthetic valves INR 2.5 to 3.5 Prevention of recurrent HI INR 2.5 to 3.5 us Armando Dickinson MD LAB BLOOD ORDERABLES Final Res ult [facility] [address] [place] [address] * (ABNORMAL) Basic metabolic panel (09/07/2025 3:54 AM EST) Glucose, Plasma 120(H) 74 - 99 mg/dL 09/07/2025 4:27 AM EST [facility] BUN, Plasma 19 7 - 21 mg/dL 09/07/2025 4:27 AM EST [facility] Creatinine, Plasma 0.68 0.60 - 1.10 mg/dL 09/07/2025 4:27 AM EST [facility] BUN/Creatinine Ratio 28 09/07/2025 4:27 AM EST [facility] Sodium, Plasma 139 136 - 145 mmol/L 09/07/2025 4:27 AM EST [facility] Potassium, Plasma 4.2 3.6 - 4.9 mmol/L 09/07/2025 4:27 AM EST [facility] Chloride, Plasma 102 97 - 107 mmol/L 09/07/2025 4:27 AM EST [facility] CO2, Plasma 28 22 - 29 mmol/L 09/07/2025 4:27 AM EST [facility] Anion Gap 9 6 - 16 mmol/L 09/07/2025 4:27 AM EST [facility] Total Calcium, Plasma 8.4(L) 8.9 - 10.2 mg/dL 09/07/2025 4:27 AM EST [facility] eGFRcr 111.7 mL/min/1.7 3m*2 09/07/2025 4:27 AM EST [facility] Comment:Reported eGFRcr in m L/min/1.73m2 is based the CKD-EPI 2020 equation that does not use a race coefficient. Blood Venous blood specimen / Unknown Venipuncture / Unknown 09/07/2025 3:54 AM EST 09/07/2025 3:58 AM EST us Armando Dickinson MD LAB BLOOD ORDERABLES Final Res ult [facility] [address] [place] [address] * (ABNORMAL) CBC W/O Differential (09/07/2025 3:54 AM EST) WBC Count 9.73 3.70 - 10.30 10*3/uL LAB HEMATOLOGY METHOD 09/07/2025 4:01 AM EST [facility] RBC Count 4.42 3.90 - 5.20 10*6/uL LAB HEMATOLOGY METHOD 09/07/2025 4:01 AM EST [facility] HGB 14.6 11.2 - 15.7 g/dL LAB HEMATOLOGY METHOD 09/07/2025 4:01 AM EST [facility] HCT 43.4 34.0 - 45.0 % LAB HEMATOLOGY METHOD 09/07/2025 4:01 AM EST [facility] Platelet Count 178 155 - 369 10*3/uL LAB HEMATOLOGY METHOD 09/07/2025 4:01 AM EST [facility] MCV 98 79 - 98 fL LAB HEMATOLOGY METHOD 09/07/2025 4:01 AM EST [facility] MCH 33.0(H) 26.0 - 32.0 pg LAB HEMATOLOGY METHOD 09/07/2025 4:01 AM EST [facility] MCHC 33.6 30.7 - 35.5 g/dL LAB HEMATOLOGY METHOD 09/07/2025 4:01 AM EST [facility] RDW 15.5(H) 11.5 - 14.5 % LAB HEMATOLOGY METHOD 09/07/2025 4:01 AM EST [facility] MPV 9.2 8.8 - 12.5 fL LAB HEMATOLOGY METHOD 09/07/2025 4:01 AM EST [facility] nRBC 0.0 <=0.0 per 100 WBCs LAB HEMATOLOGY METHOD 09/07/2025 4:01 AM EST [facility] Blood Venous blood specimen / Unknown Venipuncture / Unknown 09/07/2025 3:54 AM EST 09/07/2025 3:58 AM EST us Armando Dickinson MD LAB BLOOD ORDERABLES Final Res ult Performing Organization Address [facility] Co de Phone Number [facility] [address] [place] [address] * (ABNORMAL) Protime-INR (09/06/2025 10:02 AM EST) Pathologist [facility] Prothrombin Time 24.0(H) 12.0 - 14.3 sec 09/06/2025 10:21 AM EST [facility] INR 2.1(H) 0.9 - 1.1 09/06/2025 10:21 AM EST [facility] Blood Venous blood specimen / Unknown Venipuncture / Unknown 09/06/2025 10:02 AM EST 09/06/2025 10:05 AM EST Narrative [facility] - 09/06/2025 10:21 AM EST OPTIMAL INR RANGES FOR PATIENT ON ORAL ANTICOAGULANT THERAPY Prevention of venous thromboembolism INR 2.0 to 3.0 In patients with heart disease: Atrial fibrillation INR 2.0 to 3.0 Valvular heart disease INR 2.0 to 3.0 Tissue heart valves INR 2.0 to 3.0 Mechanical prosthetic valves INR 2.5 to 3.5 Prevention of recurrent HI INR 2.5 to 3.5 us Armando Dickinson MD LAB BLOOD ORDERABLES Final Res ult Performing Organization Address City/[facility]/ZIP Co de Phone Number [facility] [address] [place] [address] * (ABNORMAL) Blood gas panel, venous (09/06/2025 8:20 AM EST) [facility] pH, Venous 7.38 7.32 - 7.43 LAB HEMATOLOGY METHOD 09/06/2025 8:26 AM [facility] pCO2, Venous 55(H) 37 - 52 mmHg LAB HEMATOLOGY METHOD 09/06/2025 8:26 AM [facility] pO2, Venous 42(H) 25 - 40 mmHg LAB HEMATOLOGY METHOD 09/06/2025 8:26 AM [facility] SO2, Measured, Venous 77 65 - 80 % LAB HEMATOLOGY METHOD 09/06/2025 8:26 AM [facility] Base Excess, Venous 4.9(H) -2.0 - 3.0 mmol/L LAB HEMATOLOGY METHOD 09/06/2025 8:26 AM [facility] Bicarbonate, Calculated, Venous 32(H) 22 - 26 mmol/L LAB HEMATOLOGY METHOD 09/06/2025 8:26 AM [facility] Hematocrit, Whole Blood 51.3(H) 34.0 - 45.0 % LAB HEMATOLOGY METHOD 09/06/2025 8:26 AM [facility] Sodium, Whole Blood 144 136 - 145 mmol/L LAB HEMATOLOGY METHOD 09/06/2025 8:26 AM [facility] Potassium, Whole Blood 4.0 3.6 - 4.9 mmol/L LAB HEMATOLOGY METHOD 09/06/2025 8:26 AM [facility] Chloride, Whole Blood 101 97 - 107 mmol/L LAB HEMATOLOGY METHOD 09/06/2025 8:26 AM EST [facility] Glucose, Whole Blood 135(H) 74 - 99 mg/dL LAB HEMATOLOGY METHOD 09/06/2025 8:26 AM [facility] Lactate, Venous, Whole Blood 1.1 0.5 - 2.2 mmol/L LAB HEMATOLOGY METHOD 09/06/2025 8:26 AM [facility] Ionized Calcium, Whole Blood 4.6 4.6 - 5.1 mg/dL LAB HEMATOLOGY METHOD 09/06/2025 8:26 AM [facility] Blood Venous blood specimen / Unknown Venipuncture / Unknown 09/06/2025 8:20 AM EST 09/06/2025 8:25 AM EST us Amadou Katt Sparrow PIPELINE ENGINEER, DNP LAB BLOOD ORDERAB LES Final Result [facility] [address] [place] [address] * (ABNORMAL) Blood gas panel, venous (09/06/2025 5:31 AM EST) pH, Venous 7.37 7.32 - 7.43 LAB HEMATOLOGY METHOD 09/06/2025 5:40 AM EST [facility] pCO2, Venous 51 37 - 52 mmHg LAB HEMATOLOGY METHOD 09/06/2025 5:40 AM EST [facility] pO2, Venous 77(H) 25 - 40 mmHg LAB HEMATOLOGY METHOD 09/06/2025 5:40 AM EST [facility] SO2, Measured, Venous 96(H) 65 - 80 % LAB HEMATOLOGY METHOD 09/06/2025 5:40 AM EST [facility] Base Excess, Venous 3.0 -2.0 - 3.0 mmol/L LAB HEMATOLOGY METHOD 09/06/2025 5:40 AM EST [facility] Bicarbonate, Calculated, Venous 29(H) 22 - 26 mmol/L LAB HEMATOLOGY METHOD 09/06/2025 5:40 AM EST [facility] Hematocrit, Whole Blood 48.8(H) 34.0 - 45.0 % LAB HEMATOLOGY METHOD 09/06/2025 5:40 AM EST [facility] Sodium, Whole Blood 141 136 - 145 mmol/L LAB HEMATOLOGY METHOD 09/06/2025 5:40 AM EST [facility] Potassium, Whole Blood 4.1 3.6 - 4.9 mmol/L LAB HEMATOLOGY METHOD 09/06/2025 5:40 AM EST [facility] Chloride, Whole Blood 104 97 - 107 mmol/L LAB HEMATOLOGY METHOD 09/06/2025 5:40 AM EST [facility] Glucose, Whole Blood 149(H) 74 - 99 mg/dL LAB HEMATOLOGY METHOD 09/06/2025 5:40 AM EST [facility] Lactate, Venous, Whole Blood 1.0 0.5 - 2.2 mmol/L LAB HEMATOLOGY METHOD 09/06/2025 5:40 AM EST [facility] Ionized Calcium, Whole Blood 4.8 4.6 - 5.1 mg/dL LAB HEMATOLOGY METHOD 09/06/2025 5:40 AM EST [facility] Blood Venous blood specimen / Unknown Venipuncture / Unknown 09/06/2025 5:31 AM EST 09/06/2025 5:33 AM EST Freya Lopez PIPELINE ENGINEER LAB BLOOD ORDERABLES Final Result Performing Organization Address [facility] Phone Number [facility] [address] [place] [address] * Troponin T, High Sensitivity, 2 Hour, Plasma (09/06/2025 3:15 AM EST) Pathologist [facility] Troponin T, High Sensitivity, 2 Hour 10 <14 ng/L 09/06/2025 3:50 AM EST [facility] Troponin Delta 4 <10 ng/L 09/06/2025 3:50 AM EST [facility] Troponin Delta Interpretation Not Significant 09/06/2025 3:50 AM EST [facility] Comment:Not Significant. No acute change in troponin observed between the baseline and 2 hour samples. Blood Venous blood specimen / Unknown Venipuncture / Unknown 09/06/2025 3:15 AM EST 09/06/2025 3:23 AM EST Freya Lopez PIPELINE ENGINEER LAB BLOOD ORDERABLES Final Result Performing Organization Address [facility] Phone Number [facility] [address] [place] [address] * CT Angio Pulmonary Embolism (09/06/2025 1:49 [...] Dafne Lares MD on 09/06/2025 2:05 AM Freya Lopez PIPELINE ENGINEER IMG CT PROCEDURES Final Res ult * N-Terminal Probnp (09/06/2025 1:00 AM EST) N-Terminal, PROBNP, Plasma 339 0 - 449 pg/mL 09/06/2025 11:54 AM EST [facility] Blood Venous blood specimen / Unknown Venipuncture / Unknown 09/06/2025 1:00 AM EST 09/06/2025 1:06 AM EST us Armando Dickinson MD LAB BLOOD ORDERABLES Final Res ult Performing Organization Address City/[facility]/[place] [address] * (ABNORMAL) GGT (09/06/2025 1:00 AM EST) GGT, Plasma 129(H) 5 - 36 U/L 09/06/2025 8:47 AM EST [facility] Blood Venous blood specimen / Unknown Venipuncture / Unknown 09/06/2025 1:00 AM EST 09/06/2025 1:06 AM EST us Amadou Sparrow APRN, DNP LAB BLOOD ORDERAB LES Final Result Performing Organization Address [facility]/[place] [address] * (ABNORMAL) Troponin now and 120 min (09/06/2025 1:00 AM EST) Troponin T, High Sensitivity, 0 Hour 14(H) <14 ng/L 09/06/2025 1:27 AM EST [facility] Blood Venous blood specimen / Unknown Venipuncture / Unknown 09/06/2025 1:00 AM EST 09/06/2025 1:06 AM EST us Freya Lopez PIPELINE ENGINEER LAB BLOOD ORDERABLES Final Result Performing Organization Address City/[facility]/ZIP Co de Phone Number [facility] [address] [place] [address] * EKG now - STAT (adult) (09/05/2025 11:00 PM EST) EKG DIAGNOSIS CLASS Abnormal MUSE ECG Ventricular Rate 71 BPM MUSE ECG Atrial Rate 258 BPM MUSE ECG QRSD Interval 138 ms MUSE ECG QT Interval 440 ms MUSE ECG QTC Interval 478 ms MUSE ECG R [place] 236 degrees MUSE ECG T Wave [place] 59 degrees MUSE ECG Diagnosis Biventricular pacemaker detected MUSE ECG Diagnosis Ventricular-pace d rhythm MUSE ECG Diagnosis Baseline Artifact Electrode noise MUSE ECG Diagnosis Abnormal ECG MUSE ECG Diagnosis MUSE ECG Diagnosis Confirmed by Jass Stafford ([id number]) on 09/06/2025 12:22:26 PM MUSE ECG 09/05/2025 11:0 0 PM EST 09/06/2025 12:22 PM EST Mykel Juarez MD ECG ORDERABLES Final Result Performing Organization Address [facility] Phone Number MUSE ECG * Urinalysis Microscopic Examination (09/05/2025 10:54 PM EST) Urine Urine specimen obtained by clean catch procedure / Unknown Non-blood Collection / Unknown 09/05/2025 10:54 PM EST 09/05/2025 11:01 PM EST Freya Lopez APRN LAB URINE ORDERABLES Final Result Performing Organization Address [facility] de Phone Number [facility] [address] [place] [address] * Urine Parikh Panel (09/05/2025 10:54 PM EST) Extra Specimen evaluation in progress 09/06/2025 1:02 AM EST [facility] Urine Urine specimen obtained by clean catch procedure / Unknown Non-blood Collection / Unknown 09/05/2025 10:54 PM EST 09/05/2025 11:01 PM EST Freya Lopez APRN LAB URINE ORDERABLES Final Result Performing Organization Address [facility] de Phone Number [facility] [address] [place] [address] * (ABNORMAL) Urinalysis with reflex microscopic (Culture NOT Included) (09/05/2025 10:54 PM EST) Color, Urine Yellow LAB URINALYSIS - AUTOMATED METHOD 09/05/2025 11:25 PM [facility] Clarity, Urine Clear LAB URINALYSIS - AUTOMATED METHOD 09/05/2025 11:25 PM [facility] Spec [place], Urine 1.019 1.005 - 1.030 LAB URINALYSIS - AUTOMATED METHOD 09/05/2025 11:25 PM [facility] pH, Urine 6.0 5.0 - 8.0 LAB URINALYSIS - AUTOMATED METHOD 09/05/2025 11:25 PM [facility] Protein, Urine Negative Negative mg/dL LAB URINALYSIS - AUTOMATED METHOD 09/05/2025 11:25 PM [facility] Glucose, Urine Negative Negative mg/dL LAB URINALYSIS - AUTOMATED METHOD 09/05/2025 11:25 PM [facility] Ketones, Urine Negative Negative mg/dL LAB URINALYSIS - AUTOMATED METHOD 09/05/2025 11:25 PM [facility] Blood, Urine Negative Negative LAB URINALYSIS - AUTOMATED METHOD 09/05/2025 11:25 PM [facility] Bilirubin, Urine Negative Negative LAB URINALYSIS - AUTOMATED METHOD 09/05/2025 11:25 PM [facility] Urobilinogen, Urine 0.2 0.2 to 1.0 mg/dL LAB URINALYSIS - AUTOMATED METHOD 09/05/2025 11:25 PM [facility] Leukocytes, Urine Small(A) Negative LAB URINALYSIS - AUTOMATED METHOD 09/05/2025 11:25 PM [facility] Nitrite, Urine Negative Negative LAB URINALYSIS - AUTOMATED METHOD 09/05/2025 11:25 PM [facility] RBC, Urine 1 0 to 3 /HPF LAB URINALYSIS - AUTOMATED METHOD 09/05/2025 11:25 PM [facility] WBC, Urine 0 - 5 0 to 5 /HPF LAB URINALYSIS - AUTOMATED METHOD 09/05/2025 11:25 PM [facility] Squamous Epithelial Cells 3 - 5 0 to 5 /HPF LAB URINALYSIS - AUTOMATED METHOD 09/05/2025 11:25 PM EST [facility] Hyaline Casts 0 - 2 0 to 5 /LPF LAB URINALYSIS - AUTOMATED METHOD 09/05/2025 11:25 PM EST [facility] Bacteria, Urine Negative Negative LAB URINALYSIS - AUTOMATED METHOD 09/05/2025 11:25 PM EST [facility] Urine Urine specimen obtained by clean catch procedure / Unknown Non-blood Collection / Unknown 09/05/2025 10:54 PM EST 09/05/2025 11:01 PM EST Freya Estuardo Lopez PIPELINE ENGINEER LAB URINE ORDERABLES Final Result Performing Organization Address [facility] Co de Phone Number [facility] [address] [place] [address] * (ABNORMAL) Protime-INR (09/05/2025 10:54 PM EST) Prothrombin Time 24.6(H) 12.0 - 14.3 sec 09/05/2025 11:19 PM EST [facility] INR 2.2(H) 0.9 - 1.1 09/05/2025 11:19 PM EST [facility] Blood Venous blood specimen / Unknown Venipuncture / Unknown 09/05/2025 10:54 PM EST 09/05/2025 10:57 PM EST Narrative [facility] - 09/05/2025 11:19 PM EST OPTIMAL INR RANGES FOR PATIENT ON ORAL ANTICOAGULANT THERAPY Prevention of venous thromboembolism INR 2.0 to 3.0 In patients with heart disease: Atrial fibrillation INR 2.0 to 3.0 Valvular heart disease INR 2.0 to 3.0 Tissue heart valves INR 2.0 to 3.0 Mechanical prosthetic valves INR 2.5 to 3.5 Prevention of recurrent HI INR 2.5 to 3.5 Freya Estuardo Lopez PIPELINE ENGINEER LAB BLOOD ORDERABLES Final Result Performing Organization Address City/[facility]/ZIP Co de Phone Number [facility] [address] [place] [address] * SARS-CoV-2, Flu A, Flu B, and RSV - Rapid (09/05/2025 10:54 PM EST) SARS CoV-2/COVID-19 RNA PCR Result Not Detected Not Detected 09/06/2025 12:21 AM EST [facility] Influenza A Virus PCR Result Not Detected Not Detected 09/06/2025 12:21 AM EST [facility] Influenza B Virus PCR Result Not Detected Not Detected 09/06/2025 12:21 AM EST [facility] Respiratory Syncytial Virus (RSV) PCR Result Not Detected Not Detected 09/06/2025 12:21 AM EST [facility] Swab Nasopharyngeal structure / Unknown Non-blood Collection / Unknown 09/05/2025 10:54 PM EST 09/05/2025 11:31 PM EST Narrative [facility] - 09/06/2025 12:21 AM EST [...] clinical signs and symptoms consistent with COVID-19. Mykel Juarez MD LAB MICROBIOLOGY - GENERAL ORDER BELLO Final Result [facility] [address] [place] [address] * XR Chest 1 View (09/05/2025 10:40 [...] Dafne Lares MD on 09/05/2025 11:16 PM us Mykel Juarez MD IMG XR PROCEDURES Final Result * hCG qualitative (09/05/2025 10:26 PM EST) Test Negative Negative 09/06/2025 12:52 AM EST [facility] Blood Venous blood specimen / Unknown Venipuncture / Unknown 09/05/2025 10:26 PM EST 09/05/2025 10:27 PM EST Narrative [facility] - 09/06/2025 12:52 AM EST Reference Range: Males and non- females: Negative. Freya Lopez APRN LAB BLOOD ORDERABLES Final Result Performing Organization Address City/[facility]/ZIP Co de Phone Number [facility] [address] [place] [address] * ED HIV 1/2 Antibody/Antigen Screen w/Reflex to HIV 1/2 Differentiation (09/05/2025 10:26 PM EST) HIV 1 & 2 Antibody/Antigen Screen Non Reactive Non Reactive 09/06/2025 3:24 AM EST [facility] Comment:Screening for HIV 1 & 2 antibodies, and P24 antigen is NONREACTIVE. No confirmatory testing is required. Blood Venous blood specimen / Unknown Venipuncture / Unknown 09/05/2025 10:26 PM EST 09/05/2025 10:32 PM EST Mykel Juarez MD LAB BLOOD ORDERABLES Final Resul t Performing Organization Address [facility] [place] [address] * Hepatitis C Antibody - ED (09/05/2025 10:26 PM EST) Hepatitis C Antibody Negative Negative 09/06/2025 3:31 AM EST [facility] Blood Venous blood specimen / Unknown Venipuncture / Unknown 09/05/2025 10:26 PM EST 09/05/2025 10:32 PM EST us Mykel Juarez MD LAB BLOOD ORDERABLES Final Resul t Performing Organization Address City/[facility] Co de Phone Number [facility] [address] [place] [address] * Free T4, Plasma (09/05/2025 10:26 PM EST) Free T4, Plasma 1.7 0.8 - 1.7 ng/dL 09/05/2025 10:55 PM EST [facility] Blood Venous blood specimen / Unknown Venipuncture / Unknown 09/05/2025 10:26 PM EST 09/05/2025 10:27 PM EST Narrative [facility] - 09/05/2025 10:55 PM EST Free T4 Trimester Specific Ranges 1st Trimester 0.9 - 1.50 ng/dL 2nd Trimester 0.7 - 1.40 ng/dL 3rd Trimester 0.7 - 1.24 ng/dL us Mykel Juarez MD LAB BLOOD ORDERABLES Final Resul t Performing Organization Address City/[facility]/[place] [address] * Thyroid Stimulating Hormone, Plasma (09/05/2025 10:26 PM EST) Thyroid Stimulating Hormone, Plasma 2.40 0.40 - 4.20 uIU/mL 09/05/2025 10:55 PM EST [facility] Blood Venous blood specimen / Unknown Venipuncture / Unknown 09/05/2025 10:26 PM EST 09/05/2025 10:27 PM EST Narrative [facility] - 09/05/2025 10:55 PM EST Trimester Specific Ranges TSH ( IU/mL) 1st Trimester 0.1 - 3.0 2nd Trimester 0.19 - 4.06 3rd Trimester 0.3 - 3.7 us Mykel Juarez MD LAB BLOOD ORDERABLES Final Resul t [facility] [address] [place] [address] * Magnesium (09/05/2025 10:26 PM EST) Magnesium, Plasma 2.0 1.9 - 2.4 mg/dL 09/05/2025 10:55 PM EST [facility] Blood Venous blood specimen / Unknown Venipuncture / Unknown 09/05/2025 10:26 PM EST 09/05/2025 10:27 PM EST us Mykel Juarez MD LAB BLOOD ORDERABLES Final Resul t [facility] [address] [place] [address] * BNP (09/05/2025 10:26 PM EST) N-Terminal, PROBNP, Plasma 351 0 - 449 pg/mL 09/05/2025 10:55 PM EST [facility] Blood Venous blood specimen / Unknown Venipuncture / Unknown 09/05/2025 10:26 PM EST 09/05/2025 10:27 PM EST us Mykel Juarez MD LAB BLOOD ORDERABLES Final Resul t Performing Organization Address City/[facility] Co de Phone Number [facility] [address] [place] [address] * (ABNORMAL) CBC (09/05/2025 10:26 PM EST) [facility] WBC Count 6.41 3.70 - 10.30 10*3/uL LAB HEMATOLOGY METHOD 09/05/2025 10:29 PM EST [facility] RBC Count 4.67 3.90 - 5.20 10*6/uL LAB HEMATOLOGY METHOD 09/05/2025 10:29 PM EST [facility] HGB 15.5 11.2 - 15.7 g/dL LAB HEMATOLOGY METHOD 09/05/2025 10:29 PM EST [facility] HCT 45.9(H) 34.0 - 45.0 % LAB HEMATOLOGY METHOD 09/05/2025 10:29 PM EST [facility] Platelet Count 169 155 - 369 10*3/uL LAB HEMATOLOGY METHOD 09/05/2025 10:29 PM EST [facility] MCV 98 79 - 98 fL LAB HEMATOLOGY METHOD 09/05/2025 10:29 PM EST [facility] MCH 33.2(H) 26.0 - 32.0 pg LAB HEMATOLOGY METHOD 09/05/2025 10:29 PM EST [facility] MCHC 33.8 30.7 - 35.5 g/dL LAB HEMATOLOGY METHOD 09/05/2025 10:29 PM EST [facility] RDW 15.9(H) 11.5 - 14.5 % LAB HEMATOLOGY METHOD 09/05/2025 10:29 PM EST [facility] MPV 9.2 8.8 - 12.5 fL LAB HEMATOLOGY METHOD 09/05/2025 10:29 PM EST [facility] nRBC 0.0 <=0.0 per 100 WBCs LAB HEMATOLOGY METHOD 09/05/2025 10:29 PM EST [facility] Blood Venous blood specimen / Unknown Venipuncture / Unknown 09/05/2025 10:26 PM EST 09/05/2025 10:27 PM EST us Mykel Juarez MD LAB BLOOD ORDERABLES Final Resul t [facility] [address] [place] [address] * (ABNORMAL) CMP (09/05/2025 10:26 PM EST) Glucose, Plasma 104(H) 74 - 99 mg/dL 09/05/2025 10:55 PM EST [facility] BUN, Plasma 16 7 - 21 mg/dL 09/05/2025 10:55 PM EST [facility] Creatinine, Plasma 0.72 0.60 - 1.10 mg/dL 09/05/2025 10:55 PM EST [facility] BUN/Creatinine Ratio 22 09/05/2025 10:55 PM EST [facility] Sodium, Plasma 143 136 - 145 mmol/L 09/05/2025 10:55 PM EST [facility] Potassium, Plasma 4.3 3.6 - 4.9 mmol/L 09/05/2025 10:55 PM EST [facility] Chloride, Plasma 106 97 - 107 mmol/L 09/05/2025 10:55 PM EST [facility] CO2, Plasma 29 22 - 29 mmol/L 09/05/2025 10:55 PM EST [facility] Anion Gap 8 6 - 16 mmol/L 09/05/2025 10:55 PM EST [facility] Total Calcium, Plasma 9.1 8.9 - 10.2 mg/dL 09/05/2025 10:55 PM EST [facility] Total Protein 7.7 6.3 - 7.9 g/dL 09/05/2025 10:55 PM EST [facility] Albumin, Plasma 3.7 3.5 - 5.2 g/dL 09/05/2025 10:55 PM EST [facility] AST, Plasma 30 10 - 35 U/L 09/05/2025 10:55 PM EST [facility] ALT, Plasma 28 10 - 35 U/L 09/05/2025 10:55 PM EST [facility] Alkaline Phosphatase, Plasma 117(H) 35 - 104 U/L 09/05/2025 10:55 PM EST [facility] Total Bilirubin, Plasma 0.4 0.2 - 1.1 mg/dL 09/05/2025 10:55 PM EST [facility] eGFRcr 107.2 mL/min/1.7 3m*2 09/05/2025 10:55 PM EST [facility] Comment:Reported eGFRcr in m L/min/1.73m2 is based the CKD-EPI 2020 equation that does not use a race coefficient. Blood Venous blood specimen / Unknown Venipuncture / Unknown 09/05/2025 10:26 PM EST 09/05/2025 10:27 PM EST us Mkyel Juarez MD LAB BLOOD ORDERABLES Final Resul t [facility] [address] [place] [address] documented in this encounter Visit Diagnoses Diagnosis [...] PRN, Starting on 09/06/25 at 2158, Until Tu09/08/25 at 1546, Routine, wheezing, shortness of breath [...] Nebulization, Every 6 hours PRN, Starting on Sun /7/25 at 0637, Until Sun09/08/25 at 1546, Routine, [...] on 09/06/25 at 0640, Until Discontinued, Routine Given 09/08/2025 6:25 AM EST 10 mL Given 09/07/2025 6:15 AM EST 10 mL Given 09/06/2025 6:03 PM EST 10 mL sodium chloride 0.9 % flush 10 mL 10 mL, Intravenous, As needed, Starting on 09/06/25 at 0633, Until Sun09/08/25 at 1546, Routine, [...] on Sun09/07/25 at 1700, Until Discontinued, Routine Given 09/07/2025 6:08 PM EST 7 mg documented in this encounter Active and Recently Administered Medications Times are shown in EST. Scheduled Medication Order 09/06/2025 09/07/2025 09/08/2025 aspirin chewable tablet 81 mg 81 mg, Oral, Daily, First dose on Sun09/06/25 at 2030, Until Discontinued, Routine 2042 (Given - Provider: Brianna Lara RN - Comment: pt takes med daily not for pain control) 0835 (Given - Provider: Daniella Mattson CNA) 0829 (Given - Provider: Lian Long RN) enoxaparin (Lovenox) syringe 100 mg 100 mg (rounded from 101 mg = 1 mg/kg 101 kg), Subcutaneous, Every 12 hours, First dose on Sun09/06/25 at 1050, Until Discontinued, Routine 1100 (Not [...] 2017 (Given - Provider: Brianna Lara RN) 211 (Given - Provider: Ashley Connolly RN) oxymetazoline [...] on Sun09/06/25 at 0640, Until Discontinued, Routine 0639 (Canceled Entry - Provider: Reji Simons RN)180 (Given - Provider: Indira Bliss RN) 0615 (Given - Provider: Brianna Lara RN)1930 (Not Given - Provider: Lian Long RN - Reason: Patient/Family/Repre sentative Refused) 0625 (Given - Provider: Ashley Connolly RN) warfarin (Coumadin) tablet 6 mg (CANCELED) 6 mg, Oral, Daily, First dose on Sun09/06/25 at 1700, Until Discontinued, Routine 180 (Given - Provider: Indira Bliss RN) warfarin (Coumadin) tablet 6 mg 6 mg, [...] 1: Insert peripheral IV (CANCELED) Once, On Sun09/06/25 at 0634, For 1 occurrence And Saline lock IV (CANCELED) Once, On Sun09/06/25 at 0634, For 1 occurrence And sodium chloride 0.9 % flush 10 mLJump to med 10 mL, Intravenous, Every 12 hours, First dose on Sun09/06/25 at 0640, Until Discontinued, Routine And sodium chloride 0.9 % flush 10 mLJump to med 10 mL, Intravenous, As needed, Starting on Sun09/06/25 at 0633, Until Sun09/08/25 at 1546, Routine, line care documented in [...] as of this encounter Care Teams Electrical Tech Relationship Specialty Start Date End Date Espinoza Thakur MD [address] [place] [address] [address] [place] [address] PCP - General 02/11/21 documented as of this encounter
--- OUTSIDE RECORDS SUMMARY | 2025-09-10 13:00 | XMS_ITS | Encounter Summary ---
Author Organization [facility] Address [address] [place] [address] Care Team Providers Care Naturopath Name Role Phone Espinoza Thakur MD Primary Care Provider [phone] Vanda Greenberg LPN Unavailable Unavailable Reason for Referral * Consultation (Routine) - Authorized Specialty Diagnoses / Procedures Referred By Neema burger Referred To Contact Diagnoses Atrial fibrillation, unspecified type (CMS/HCC) Tanja Parsons MD [address] [place] [address] Phone: tel: fax: Referral ID Status Reason Start Date Expiration Date V isits Requested Visits Authorized [id number] Authorized 09/10/2025 03/12/2027 1 1 Reason for Visit * Consultation (Routine) - Closed Specialty Diagnoses / Procedures Referred By Neema burger Referred To Contact Diagnoses Atrial fibrillation, unspecified type (CMS/HCC) Jenny Tolentino PA [address] [place] [address] Phone: tel: fax: Referral ID Status Reason Start Date Expiration Date Visits Re quested Visits Authorized [id number] Closed 03/12/2025 09/11/2026 1 1 Encounter Details Date Type Department Care Team (Late st Contact Info) Description 09/10/2025 1:00 PM EST Office Visit [facility] [address] [facility] [place] [address] Tanja Parsons MD [address] [place] [address] Atrial fibrillation, unspecified type (CMS/HCC) (Primary Dx) Social History Tobacco Use Types [...] any time in the past 12 m [facility], were you homeless or living in a half-way (including now)? No 09/09/2025 [facility] Utilities Answer Date Recorded In the past 12 months has th e [employer], gas, oil, or water [employer] threatened to shut off services in your [...] Sign Reading Time Taken Comments Blood Pressure 92/65 09/10/2025 1:37 PM EST Pulse 71 09/10/2025 1:37 PM EST Temperature - - Respiratory Rate - - Oxygen Saturation 94% 09/10/2025 1:37 PM EST 02-1L Inhaled Oxygen Concentration - - Weight 102 kg (225 lb 8.5 oz) 09/10/2025 1:37 PM EST Height - - Body Mass Index 45.55 09/06/2025 6:39 AM EST documented in this encounter Functional Status * AUDIT-C Score Answer Date of Assessment [...] Never 09/10/2025 1:39 PM Jasmyn Vo * Over the past 2 weeks, how [...] (Past 1 Month) No 09/10/2025 1:43 PM EST Jasmyn Long 6. Suicidal Behavior (Lifetime) No 1:43 PM Jasmyn Vo documented as of this encounter Miscellaneous Notes * Progress Notes - Tanja Parsons MD - 09/10/2025 1:00 PM EST [facility] [place] Electrophysiology Note Service Consulted: Electrophysiology. Referring Provider : Jenny Tolentino PA PCP : Espinoza Thakur MD History Of Present Illness: Kusum Sanchez is a 40 y.o. female PMH: CHB s/p 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 She had gen change complicated by hematoma had I and D but prolonged period of drainage that received courses of antibiotic. She is chronically anticoagulated due to chronic atrial arrhythmias and MVR., KALEIGH on CPAP. She also follows w Dr. Tidwell. 08/2023 EF 40%. On 01/10/2024 had episode of non sustained VT on remote PM alert which is concerning in setting of reduced LVEF. The Device clinic did call the pt's mother and was told asymptomatic with NSVT. She haddone 2 exercise classes and ridden her stationary bike for 30 mn that day. Has been exercising and watching diet, losing weight. TTE 01/21/2024 LVEF 44% At last visit, 03-03-24, she was noting soa with decreased O2 [place]. F/u with congenital cardiology with 6MWT with baseline SPO2 at 87%, that dropped to 82% with exercise and 95% at recovery. ECHO: 01-21-24: LVEF 44%. Referral back to pulm in setting of KALEIGH with CPAP and use of home O2 AT 2 L, N/c for years and asthma/allergies. Pulm recommended HRCT (results pending) for further evaluation as cannot complete PFTs. Patient admitted recently with fluid build up. She trys to eat low salt and healthy. She has been referred to the weight loss clinic and may try weight loss drugs She says she is no longer SOB She has babies from family she helps take care of. Echo, Adult Congenital Transthoracic (TTE) Complete Result Date: 06/19/2025 Left Ventricle: The left ventricular systolic function is normal. The LVEF is visually estimated at40 - 50%. Right Ventricle: The right ventricular [...] recently available prior study, and allowing for differencesin image quality and technique, there is no significant interval change noted. History: Trisomy 21,Type A Atrioventricular Canal, s/p AVC repair (02/02/87, [...] image quality and technique, there is no significantinterval change noted. Encounter Date: 09/05/25 EKG now - STAT (adult) Result Value EKG DIAGNOSIS CLASS Abnormal Ventricular Rate 71 Atrial Rate 258 QRSD Interval 138 QT Interval 440 QTC Interval 478 R Colton 236 T Wave Colton 59 Diagnosis Biventricular pacemaker detected Diagnosis Ventricular-paced rhythm Diagnosis Baseline Artifact Electrode noise Diagnosis Abnormal ECG Diagnosis Diagnosis Confirmed by Jass Stafford ([id number]) on 09/06/2025 12:22:26 PM *Note: Due to a large number of results and/or encounters for the requested time period, some results have not been displayed. A complete set of results can be found in Results Review. Verbal consent was obtained to use ambient listening technology to assist in the documentation of the encounter: no Past Medical History : She has a past medical history of A-fib, CHF (congestive heart failure), Conversions - Other, Conversions - Other, Conversions - Other, Conversions - Other, Conversions - Other, Disease of thyroid gland, Down syndrome, H/O tricuspid valve annuloplasty (08/29/23), and KALEIGH on CPAP. Past Surgical History: She has a past surgical history that includes Tonsilectomy, adenoidectomy, bilateral myringotomy and tubes (N/A); Other surgical history (N/A); Insert / replace / remove pacemaker (N/A); Other surgical history (N/A); and Mitral valve replacement. Family History: Family History[1] Social History: She reports that she has never smoked. She has never been exposed to tobacco smoke. She has never used smokeless tobacco. She reports that she does not drink alcohol and does not use drugs. Allergies: [place] and Doxycycline Medications: Current Medications[2] Relevant Labs: Lab Results Component Value Date/Time WBC 9.73 09/07/2025 0354 WBC 6.41 09/05/20252225 WBC 5.64 05/18/2021 0516 RBC 4.42 09/07/2025 0354 RBC 4.67 09/05/20252225 RBC 4.26 05/18/2021 0516 HGB 14.6 09/07/2025353 HGB 15.5 09/05/20252225 HGB 13.9 05/18/2021515 HCT 43.4 09/07/2025353 HCT 45.9 (H) 09/05/20252225 HCT 41.1 05/18/2021515 Lab Results Component Value Date/Time BUN 19 09/07/2025353 BUN 16 09/05/20252225 BUN 10 05/18/2021515 NA 139 09/07/2025353 NA 143 09/05/20252225 NA 135 (L) 05/18/2021515 K 4.2 09/07/2025353 K 4.3 09/05/20252225 K 4.6 05/18/2021515 CL 102 09/07/2025353 CL 106 09/05/20252225 CL 105 05/18/2021515 Lab Results Component Value Date/Time AST 30 09/05/20252225 ALT 28 09/05/20252225 ALKPHOS 117 (H) 09/05/20252225 Lab Results Component Value Date/Time TSH 2.40 09/05/20252225 FREET4 1.7 09/05/20252225 Review of Systems: 14 systems reviewed, negative except what is mentioned above. Vitals Signs : Physical Examination : - General appearance: NAD, conversant - Eyes: anicteric sclerae, moist conjunctivae; EOMI. - HEENT: Atraumatic, moist mucous membranes - Neck: Trachea midline - Lungs: CTA, normal respiratory effort. - CV: RRR, mech valve clicks - Abdomen: Soft, non-tender, non-distended - Extremities: No peripheral edema - Skin: device site without infection or errosion - Neuro: grossly intact, no focal deficits. - Psych: Appropriate affect, appropriate mood. 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 Assessment and Plan : 1) Device site and function are good 2) MVR stable on comadin no bleeding 3) EF 45% range low BP on metoprolol 4) NSVT on BB 5) Weight loss referred to clinic 6) RTC 6 month Tanja Parsons MD Electrophysiology [1] Family History Problem Relation Name Age of Onset Hypercholesterolemia Mother Hypertension Mother Thyroid disease Mother Heart attack Father Diabetes Brother Mental illness Brother [2] Current Outpatient Medications Medication Sig Dispense Refill albuterol 108 (90 Base) MCG/ACT inhaler Inhale 2 puffs every 4 hours as needed for wheezing or shortness of breath. aspirin 81 MG EC tablet Take 1 tablet by mouth nightly. azelastine (Astelin) 0.1 % nasal spray Administer 1 spray into each nostril 2 times a day as neededfor rhinitis. Use in each nostril as directed Calcium Carbonate-Vitamin D (OYSTER SHELL CALCIUM/D PO) Take 1 tablet by mouth daily. CHOLECALCIFEROL PO Take 1,000 Units by mouth daily. furosemide (Lasix) 40 MG tablet Take 2 tablets by mouth every morning. 30 tablet 5 guaiFENesin (Mucinex) 600 MG 12 hr tablet Take 2 tablets by mouth 2 times a day as needed for coughor congestion. Do not crush, chew, or split. levothyroxine (Synthroid, Levoxyl) 125 MCG tablet Take 1 tablet by mouth daily before breakfast. metoprolol succinate XL (Toprol-XL) 25 MG 24 hr tablet Take 0.5 tablets by mouth daily. (Patient taking differently: Take 0.5 tablets by mouth nightly.) 15 tablet 5 montelukast (Singulair) 10 MG tablet Take 1 tablet by mouth nightly. norethindrone (Micronor) 0.35 MG tablet Take 1 tablet (0.35 mg) by mouth 1 (one) time each day. (Patient taking differently: Take 1 tablet by mouth nightly.) 84 tablet 3 oxymetazoline (Afrin) 0.05 % nasal spray Administer 2 sprays into each nostril 2 times a day as needed for congestion. Do not use for more than 3 days. Pediatric Multiple Vit-C-FA (FLINSTONES GUMMIES OMEGA-3 DHA PO) Take 2 tablets by mouth 1 (one) time each day. sodium chloride (Rutherford) 0.65 % nasal spray Administer 1 spray into each nostril nightly. warfarin (Coumadin) 1 MG tablet Take 1 tablet by mouth 4 times a week. Combine with 1 tablet of Warfarin 6mg for 7mg total on 4 days of each week, alternating with 6mg doses. warfarin (Coumadin) 6 MG tablet Take 1 tablet by mouth daily. Take as directed per After Visit Summary. Take with 1mg of warfarin at 1700 4x times a week. Take alone 3x times a week. No current facility-administered medications for this visit. documented in this encounter Plan of Treatment Upcoming Encounters Date Type Department Care Team (Late st Contact Info) Description 09/18/2025 1:00 PM EST Office Visit [facility] [address] [facility] [place] [address] Jordon Tidwell MD [address] [place] [address] 09/25/2025 1:00 PM EST Office Visit [facility] Otolaryngology [address] [place] [address] Jesse Moffett MD [address] [place] [id number] 09/28/2025 11:30 AM EST Appointment [facility] [address] [place] [address] 10/22/2025 1:40 PM EST Office Visit [facility] Sleep Disorder Center [address] [place] [address] Lavern Galdamez APRN [address] [place] [address] 02/08/2026 12:30 PM EDT Office Visit [facility] Medicine Specialties [address] [place] [address] Emi Orozco PA [address] [place] [address] 02/10/2026 12:20 PM EDT Office Visit [facility] Women's Health [address] [place] [address] Hannah Tang MD [address] [place] [address] 03/11/2026 2:40 PM EDT Office Visit [facility] [address] [facility] [place] [address] Tanja Parsons MD [address] [place] [address] 2026 1:00 PM EDT Appointment Cardiac Imaging [address] [place] [address] 2026 2:40 PM EDT Office Visit [facility] [address] [place] [phone] Jordon Tidwell MD [address] [place] [address] Scheduled Referrals Name Type Priority Associated Diagnoses Orde r Schedule Follow Up Cardiology Outpatient Referral Routine Atrial fibrillation, unspecified type (CMS/HCC) Expected: 03/11/2026, Expires: 03/11/2027 documented as of this encounter Visit Diagnoses Diagnosis Atrial fibrillation, unspecified type (CMS/HCC)- Primary documented in this encounter Additional Health Concerns Assessment Noted Time PHQ-9 Depression Total Score: 0 09/10/20 1:43 PM EST A fall risk assessment has been complete d for the patient 09/10/2025 1:43 PM EST A Body Mass Index follow-up plan has been documented for the patient 09/10/2025 1:59 PM EST documented as of this encounter Care Teams Naturopath Relationship Specialty Start Date End Date Espinoza Thakur MD [address] [place] [address] [address]1 [address] [place] [address] PCP - General 02/11/21 Vanda Greenberg LPN None None TCM Nurse 09/09/25 documented as of this encounter
--- OUTSIDE RECORDS SUMMARY | 2025-09-15 11:45 | XMS_ITS | Encounter Summary ---
Author Organization Healthcare Address [address] [id number] Care Team Providers Care Metal Or Wood Blocker Name Role Phone Espinoza Thakur MD Primary Care Provider [phone] Vanda Greenberg LPN Unavailable Unavailable Encounter Details Date Type Department Care Team (Latest Contact Info) Description 09/10/2025 Travel Social History Tobacco Use Types Packs/Day [...] any time in the past 12 m [facility], were you homeless or living in a usp (including now)? No 09/09/2025 [facility] Utilities Answer Date Recorded In the [...] as of this encounter Functional Status * AUDIT-C Score [...] (Past 1 Month) No 025 1:43 PM EST Jasmyn Long 2. Non-Specific Active Suici jon Thoughts (Past 1 Month) No 09/10/2025 1:43 PM EST Jasmyn Long 6. Suicidal Behavior (Lifetime) No 1:43 PM EST Jasmyn Long documented as of this encounter Plan of Treatment Upcoming Encounters Date Type Department Care Team (Late st Contact Info) Description 09/18/2025 1:00 PM EST Office Visit [facility] [place] [address] [facility]. [address] [place] [address] Jordon Tidwell MD [address] [place] [address] 09/25/2025 1:00 PM EST Office Visit [facility] Otolaryngology [address] [place] [address] Jesse Moffett MD [address] [place] [address] 09/28/2025 11:30 AM EST Appointment [facility] Breast Care [facility] [address] [place] [address] 10/22/2025 1:40 PM EST Office Visit [facility] Sleep Disorder Center [address] [place] [address] Lavern Galdamez, PHYS ASSISTANT [address] [place] [address] 02/08/2026 12:30 PM EDT Office Visit [facility] Medicine Specialties [address] 2[address] [place] [address] Emi Orozco PA [address] [place] [address] 02/10/2026 12:20 PM EDT Office Visit [facility] Women's Health [address] [place] [address] Hannah Tang MD [address] [place] [address] 03/11/2026 2:40 PM EDT Office Visit [facility] [place] [address] [place] [address] Tanja Parsons MD [address] [place] [address] 2026 1:00 PM EDT Appointment Cardiac Imaging [address] [place] [address] 2026 2:40 PM EDT Office Visit [facility] [place] [address] [place] [address] Jordon Tidwell MD [address] [place] [address] documented as of this encounter [...] as of this encounter Care Teams Metal Or Wood Blocker Relationship Specialty Start Date End Date Espinoza Thakur MD [address] [place] [address] #1 #1 [place] [address] PCP - General 02/11/21 Greenberg, Vanda M, BUS REPAIR SUPERVISOR None None TCM Nurse 09/09/25 documented as of this encounter
--- OUTSIDE RECORDS SUMMARY | 2025-09-15 11:45 | XMS_ITS | Encounter Summary ---
Author Organization Healthcare Address [address] [place] [address] Care Team Providers Care Safety Advisor Name Role Phone Espinoza Thakur MD Primary Care Provider [phone] Encounter Details Date Type Department Care Team (Latest Contact Info) Description 08/21/2025 Travel Social History Tobacco Use Types Packs/Day [...] Description 09/18/2025 1:00 PM EST Office Visit [facility] [place] [address] [place] [address] Jordon Tidwell MD [address] [place] [address] 09/25/2025 1:00 PM EST [facility] [address] 3rd [place] [address] Jesse Moffett MD [address] [place] [address] 09/28/2025 11:30 AM EST Appointment [facility] Breast Care Center Comprehensive [facility] [address] [place] [address] 10/22/2025 1:40 PM EST Office [facility] Sleep Disorder Center [address]th [place] [address] Lavern Galdamez, PICKLE MAKER [address] [place] [address] 02/08/2026 12:30 PM EDT Office Visit [facility] Medicine Specialties [address] [place] [address] Emi Orozco PA [address] [place] [address] 02/10/2026 12:20 PM EDT Office Visit [facility] Women's Health [address] [place] [address] Hannah Tang MD [address] [place] [address] 03/11/2026 2:40 PM EDT Office Visit [facility] [place] [address] [place] [address] Tanja Parsons MD [address] [place] [address] 2026 1:00 PM EDT Appointment Cardiac Imaging [address] [place] [address] 2026 2:40 PM EDT Office Visit [facility] [place] [address] [facility] [place] [address] Jordon Tidwell MD [address] [place] [address] documented as of this encounter Visit Diagnoses [...] documented as of this encounter Care Teams Safety Advisor Relationship Specialty Start Date End Date Espinoza Thakur MD [address] [place] [address] #1 #1 [place] [address] PCP - General 02/11/21 documented as of this encounter
--- OUTSIDE RECORDS SUMMARY | 2025-09-15 11:45 | XMS_ITS | Clinical Summary ---
Author Organization [facility] Address [address] [place] [address] Care Team Providers Care Vocational Ed Instructor Name Role Phone Unavailable Primary Care Provider [...]
--- OUTSIDE RECORDS SUMMARY | 2025-09-15 11:45 | XMS_ITS | Encounter Summary ---
Author Organization Healthcare Address [address] [place] [address] Care Team Providers Care Motor Vehicle Parts Interpreter Name Role Phone Espinoza Thakur MD Primary Care Provider [phone] Reason for Visit * Reason Comments Med Refill Encounter Details Date Type Department Care Team (Late st Contact Info) Description 08/01/2025 Refill [facility] [place] [address] [place] [address] Sara Webster PA [address] [place] [address] NSVT (nonsustained ventricular tachycardia) ([facility]) Social History Tobacco Use Types Packs/Day Years [...] encounter Miscellaneous Notes * Telephone Encounter - Nancy Smith RN - 08/03/2025 10:21 AM EST Metoprolol refill sent to patient pharmacy. Patient has a follow up with DR. Parsons scheduled for 09/10/2025. documented in this encounter Plan of Treatment Upcoming Encounters Date Type Department Care Team (Late st Contact Info) Description 09/18/2025 1:00 PM EST Office Visit [facility] [place] [address] [place] [address] Jordon Tidwell MD [address] [place] [address] 09/25/2025 1:00 PM EST Office Visit [facility] Otolaryngology [address] [place] [address] Jesse Moffett MD [address] [place] [address] 09/28/2025 11:30 AM EST Appointment [facility] Breast Care Center Comprehensive Breast Care Center [address] [place] [address] 10/22/2025 1:40 PM EST Office Visit [facility] Sleep Disorder Center [address]th [place] [address] Lavern Galdamez APRN [address] [place] [address] 02/08/2026 12:30 PM EDT Office Visit [facility] Medicine Specialties [address] [place] [address] Emi Orozco PA [address] [place] [address] 02/10/2026 12:20 PM EDT Office Visit [facility] Women's Health [address] [place] [address] Hannah Tang MD [address] [place] [address] 03/11/2026 2:40 PM EDT Office Visit [facility] [address] [place] [address] Tanja Parsons MD [address] [place] [address] 2026 1:00 PM EDT Appointment Cardiac Imaging [address] [place] [address] 2026 2:40 PM EDT Office Visit [facility] [address] [place] [address] Jordon Tidwell MD [address] [place] [address] documented as of this encounter Visit Diagnoses Diagnosis NSVT (nonsustained ventricular tachycardia) ([facility]) documented in this encounter Additional Health Concerns Assessment Noted Time PHQ-9 Depression Total Score: 0 06/19/20 25 9:52 AM EDT A fall risk assessment has been complete d for the patient 06/19/2025 9:52 AM EDT A Body Mass Index follow-up plan has been documented for the patient 06/29/2025 4:50 PM EDT documented as of this encounter Care Teams Motor Vehicle Parts Interpreter Relationship Specialty Start Date End Date Espinoza Thakur MD [address] [place] [address] #1 #1 [place] [address] PCP - General 02/11/21 documented as of this encounter
--- OUTSIDE RECORDS SUMMARY | 2025-09-15 11:45 | XMS_ITS | Encounter Summary ---
Author Organization Healthcare Address [address] [place] [address] Care Team Providers Care Bar Roller Name Role Phone Espinoza Thakur MD Primary Care Provider [phone] Vanda Greenberg LPN Unavailable Unavailable Reason for Visit * Reason Comments TCM Encounter Details Date Type Department Care Team (Late st Contact Info) Description 09/09/2025 Patient Outreach [facility] [address] [place] [address] Vanda Greenberg LPN None None TCM Social History Tobacco Use Types Packs/Day Years [...] any time in the past 12 m [facility], were you homeless or living in a [facility] (including now)? No 09/09/2025 [facility] Utilities Answer Date Recorded In the [...] encounter Miscellaneous Notes * Progress Notes - Vanda Greenberg LPN - 09/09/2025 9:51 AM EST Admit Date: 09/05/2025 Discharge Date: 09/08/2025 Hospital Service: [facility] Discharge Diagnosis: Shortness of breath 09/09/2025 TCM call # 1 Patient Reached: Yes Outcome: Spoke with patient's sister for TCM nurse, patients sister states that patient is doing well since discharge. Patients sister denies that patient has complained of SOA, chest pains, or palpitations. Patients sister states that patient is using oxygen continuously at this time. Patients sister reviewed medications with TCM nurse, confirms patient is compliant with all home and discharge medications, denies side effects at this time. Patient sister updated SDOH, denies needs for patient at this time. Patient's sister states that patient is following with cardiology tomorrow and will see her PCP after cardiology follow up. No other questions, concerns, or complaints voiced. Action: N/A Medication changes: Per Discharge Summary: -NEW: furosemide 40 MG tablet Commonly known as: Lasix Take 2 tablets by mouth every morning [facility] appointment: Needs an appt scheduled with PCP Items to address at [facility]: N/A documented in this encounter Plan of Treatment Upcoming Encounters Date Type Department Care Team (Late st Contact Info) Description 09/18/2025 1:00 PM EST Office Visit [facility] [place] [address] [facility] [place] [address] Jordon Tidwell MD [address] [place] [address] 09/25/2025 1:00 PM EST Office Visit [facility] [address] [place] [address] Jesse Moffett MD [address] [place] [address] 09/28/2025 11:30 AM EST Appointment [facility] [address] [facility] [address] [place] [address] 10/22/2025 1:40 PM EST Office Visit [facility] Sleep Disorder Center [address]th [place] [address] RudolphLavern, [employer] [address] [place] [address] 02/08/2026 12:30 PM EDT Office Visit [facility] Medicine Specialties [address] [place] [address] Emi Orozco PA [address] [place] [address] 02/10/2026 12:20 PM EDT Office Visit [facility] Women's Health [address] [place] [address] Hannah Tang MD [address] [place] [address] 03/11/2026 2:40 PM EDT Office Visit [facility] [place] [address] [place] [address] Tanja Parsons MD [address] [place] [address] 2026 1:00 PM EDT Appointment Cardiac Imaging [address] [place] [address] 2026 2:40 PM EDT Office Visit [facility] [address] [place] [address] Jordon Tidwell MD [address] [place] [address] documented as of this encounter [...] documented as of this encounter Care Teams Bar Roller Relationship Specialty Start Date End Date Espinoza Thakur MD [address] [place] [address] #1 #1 [place] Smith [id number] PCP - General 02/11/21 Vanda Greenberg LPN None None TCM Nurse 09/09/25 documented as of this encounter
--- OUTSIDE RECORDS SUMMARY | 2025-09-15 11:45 | XMS_ITS | Encounter Summary ---
Author Organization Healthcare Address [address] [place] [address] Care Team Providers Care Windchill Administrator Name Role Phone Espinoza Thakur MD Primary Care Provider [phone] Encounter Details Date Type Department Care Team (Latest Contact Info) Description 09/06/2025 Travel Social History Tobacco Use Types Packs/Day Years Used Date Smoking Tobacco: Never Passive Smoke Exposure: Never Smokeless Tobacco: Never Alcohol Use Standard Drinks/Week Comments No 0 (1 standard drink = 0.6 oz pure alcohol) Alcoholic Drinks/day: Never Drank Alcohol PHQ-2 Answer Date Recorded Patient Health Questionnaire-2 Score 0 06/19/2025 PHQ-9 Answer Date Recorded Patient Health Questionnaire-9 Score 0 06/19/2025 Humiliation, Afraid, Rape, a nd Kick questionnaire [...] or ex-partner? Patient unable to answer 09/07/2025 Hunger Vital Sign Answer Date Recorded Within the past 12 months, y ou worried that your food would run out before you got the money to buy more. Never true 09/07/20 25 Within the past 12 months, t he food you bought just didn't last and you didn't have money to get more. Never true 09/07/2025 PRAPARE - Transportation Answer Date Re corded In the past 12 months, has l ack of transportation kept you from medical appointments or from getting medications? No 05/2025 In the past 12 months, has l ack of transportation kept you from meetings, work, or from getting things needed for daily living? No 09/07/2025 Housing Stability Vital Sign Answer Wallace e Recorded In the last 12 months, was t here a time when you were not able to pay the mortgage or rent on time? No 09/07/2025 In the past 12 months, how m any times have you moved where you were living? 0 09/07/2025 At any time in the past 12 m [facility], were you homeless or living in a group home (including now)? No 09/07/2025 [facility] Utilities Answer Date Recorded In the past 12 months has th e electric, gas, oil, or water company threatened to shut off services in your home? No 09/07/2025 PHQ-2A Answer Date Recorded Depression Risk 0 07/28/2024 Comments No Sex and Gender Information Value Date Recorded Sex Assigned at Not on file Legal Sex Female 8:49 PM EDT Gender Identity Not on file Sexual Orientation Not on file documented as of this encounter Functional Status * Calculated C-SSRS Risk Score (Lifetime/Recent) Answer Date of Assessment Author No Risk Indicated 09/06/2025 7:43 AM Earl Brand, RN * Question Answer Date of Assessment Author 1. Wish to be (Past 1 Month) No 025 7:43 AM Earl Brand, RN 2. Non-Specific Active Suici jon Thoughts (Past 1 Month) No 09/06/2025 7:43 AM Earl Brnad, RN 6. Suicidal Behavior (Lifetime) No 7:43 AM Earl Brand, RN documented as of this encounter Mental Status * Question Answer Entry Date Author Scale Used Alirio 09/06/2025 12:00 PM Earl Evans, RN documented in this encounter Plan of Treatment Upcoming Encounters Date Type Department Care Team (Late st Contact Info) Description 09/18/2025 1:00 PM EST Office Visit [facility] [place] [address] [place] [address] Jordon Tidwell MD [address] [place] [address] 09/25/2025 1:00 PM EST Office Visit [facility] Otolaryngology [address] [place] [address] Jesse Moffett MD [address] [place] [address] 09/28/2025 11:30 AM EST Appointment [facility] Breast Care Center Comprehensive Breast Care Center [address] [place] [address] 10/22/2025 1:40 PM EST Office Visit [facility] Sleep Disorder Center [address] [place] [address] Lavern Galdamez, ANNY [address] [place] [address] 02/08/2026 12:30 PM EDT Office Visit [facility] Medicine Specialties [address] [place] [address] Emi Orozco PA [address] [place] [address] 02/10/2026 12:20 PM EDT Office Visit [facility] Women's Health [address] [place] [address] Hannah Tang MD [address] [place] [address] 03/11/2026 2:40 PM EDT Office Visit [facility] [place] [address] [facility] [place] [address] Tanja Parsons MD [address] [place] [address] 2026 1:00 PM EDT Appointment Cardiac Imaging [address] [place] [address] 2026 2:40 PM EDT Office Visit [facility] [place] [address] [place] [address] Jordon Tidwell MD [address] [place] [address] documented as of this encounter Visit Diagnoses Not on filedocumented in this encounter Additional Health Concerns Infection [...] documented as of this encounter Care Teams Windchill Administrator Relationship Specialty Start Date End Date Espinoza Thakur MD [address] [place] [address] #1 #1 [place] Smith [address] PCP - General 02/11/21 documented as of this encounter
--- OUTSIDE RECORDS SUMMARY | 2025-09-15 11:45 | XMS_ITS | Encounter Summary ---
Author Organization Healthcare Address [address] [place] [address] Care Team Providers Care Vp Platforms Name Role Phone Espinoza Thakur MD Primary Care Provider [phone] Encounter Details Date Type Department Care Team (Late st Contact Info) Description 09/07/2025 Telephone [facility] [place] [address] [facility] [place] [address] Jordon Tidwell MD [address] [place] [address] Social History Tobacco Use Types [...] any time in the past [address] [facility], were you homeless or living in a penitentiary (including now)? No 09/07/2025 [facility] Utilities Answer Date Recorded In the [...] encounter Miscellaneous Notes * Telephone Encounter - Xiao Velez RN - 09/07/2025 2:29 PM EST I returned the call and let Susan know that I have informed Dr. Tidwell and the team know that Kusum is admitted here at . * Telephone Encounter - Suellen Klein Giuliana - 09/07/2025 1:45 PM EST Clinical Concern/Question Reason for Call: Yaw pt's sister called re: pt was taken to the ED and has been admitted but waiting for a hospital bed for fluid on her lungs. Best contact number: [phone] SisterSusan Optimal time of day to reach caller: ANYTIME Additional comments/information from caller: Caller wants to know if Dr Tidwell has any input forher care while she is there. Note: Please do not reply to this [...] Description 09/18/2025 1:00 PM EST Office Visit [facility] [place] [address] [facility] [place] [address] Jordon Tidwell MD [address] [place] [address] 09/25/2025 1:00 PM EST Office Visit [facility] Ot[facility] [address] [place] [address] Jesse Moffett MD [address] [place] [id number] 09/28/2025 11:30 AM EST Appointment [facility] Breast Care Center Comprehensive Breast Care Center [facility] [address] [place] [address] 10/22/2025 1:40 PM EST Office Visit [facility] Sleep Disorder Center [address] [place] [address] Lavern Galdamez APRN [address] [place] [address] 02/08/2026 12:30 PM EDT Office Visit [facility] Medicine Specialties [address] [place] [address] Emi Orozco PA [address] [place] [address] 02/10/2026 12:20 PM EDT Office Visit [facility] Women's Health [address] [place] [address] Hannah Tang MD [address] [place] [address] 03/11/2026 2:40 PM EDT Office Visit [facility] [address] [facility] [place] [address] Tanja Parsons MD [address] [place] [address] 2026 1:00 PM EDT Appointment Cardiac Imaging [address] [place] [address] 2026 2:40 PM EDT Office Visit [facility] [address] [facility] [place] [address] Jordon Tidwell MD [address] [place] [address] documented as of this encounter [...] documented as of this encounter Care Teams Vp Platforms Relationship Specialty Start Date End Date Espinoza Thakur MD [address] [place] [address] #1 #1 [place] Smith [address] PCP - General 02/11/21 documented as of this encounter
--- OUTSIDE RECORDS SUMMARY | 2025-09-15 11:45 | XMS_ITS | Clinical Summary ---
Author Organization [facility] Address [address] [place] [address] Care Team Providers Care Inspector Quality Assurance Name Role Phone Espinoza Thakur MD Primary Care Provider Vanda Greenberg QA SOFTWARE TESTER Unavailable Unavailable Allergies Active Allergy Reactions Criticality Noted Date Comments Doxycycline Unknown - Patient st ates they do not know rxn details Low 04/10/2018 Affected INR , per mash tub cooker [place] Unknown - Patient st ates they do not know rxn details Medium 09/07/2025 Medications montelukast (Singulair) 10 MG tablet Take 1 tablet by mouth nightly. 017 Active levothyroxine (Synthroid, Levoxyl) 125 MCG tablet Take 1 tablet by mouth daily before breakfast. 013 Active aspirin 81 MG EC tablet Take 1 tablet by mouth nightly. 020 Active albuterol 108 (90 Base) MCG/ACT inhaler Inhale 2 puffs every 4 hours as needed for wheezing or shortness of breath. 021 Active warfarin (Coumadin) 6 MG tablet Take 1 tablet by mouth daily. Take as directed per After Visit Summary. Take with 1mg of warfarin at 1700 4x times a week. Take alone 3x times a week. Active Pediatric Multiple Vit-C-FA (FLINSTONES GUMMIES OMEGA-3 DHA PO) Take 2 tablets by mouth 1 (one) time each day. Active CHOLECALCIFEROL PO Take 1,000 Units by mouth daily. Active Calcium Carbonate-Vitami n D (OYSTER SHELL CALCIUM/D PO) Take 1 tablet by mouth daily. Active guaiFENesin (Mucinex) 600 MG 12 hr tablet Take 2 tablets by mouth 2 times a day as needed for cough or congestion. Do not crush, chew, or split. Active norethindrone (Micronor) 0.35 MG tabletIndication s:Encounter for initial prescription of contraceptive pills Take 1 tablet (0.35 mg) by mouth 1 (one) time each day. 84 tablet 3 024 Active Additional Information Patient taking differently:1 tablet OralNightly, Reported on 09/10/2025 warfarin (Coumadin) 1 MG tablet Take 1 tablet by mouth 4 times a week. Combine with 1 tablet of Warfarin 6mg for 7mg total on 4 days of each week, alternating with 6mg doses. Active metoprolol succinate XL (Toprol-XL) 25 MG 24 hr tabletIndication s:NSVT (nonsustained ventricular tachycardia) (CMS/HCC) Take 0.5 tablets by mouth daily. 15 tablet 5 025 2025 Active azelastine (Astelin) 0.1 % nasal spray Administer 1 spray into each nostril 2 times a day as needed for rhinitis. Use in each nostril as directed Active oxymetazoline (Afrin) 0.05 % nasal spray Administer 2 sprays into each nostril 2 times a day as needed for congestion. Do not use for more than 3 days. Active sodium chloride (Clinch) 0.65 % nasal spray Administer 1 spray into each nostril nightly. Active furosemide (Lasix) 40 MG tablet Take 2 tablets by mouth every morning. 30 tablet 5 Active furosemide (Lasix) 40 MG tablet Take 1 tablet by mouth every morning. 020 2024 Discontinued Azelastine HCl 137 MCG/SPRAY solution 022 2024 Discontinued(E ntered in Error) budesonide-formo terol (Symbicort) 80-4.5 MCG/ACT inhaler Inhale 2 puffs 2 times a day. Rinse mouth with water after use to reduce aftertaste and incidence of candidiasis. Do not swallow. 10.2 g 3 025 2024 Discontinued(E ntered in Error) enoxaparin (Lovenox) 100 MG/ML solution prefilled syringe Inject 1 mL under the skin every 12 hours. 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 [place] [address] Tanja Parsons MD Atrial fibrillation, unspecified type (CMS/HCC) (Primary Dx) 09/10/2025 Travel 09/09/2025 Patient Outreach [facility] [address], [address] [place] [address] Vanda Greenberg LPN [facility] 09/07/2025 [facility] [address] [place] [id number] Jordon Tidwell MD 09/06/2025 Travel 09/05/2025 10:09 PM EST - 09/08/2025 1:46 PM EST Hospital Encounter [facility] Inpatient [address] [place] [phone] Vitro Hankins MD Arora, Ankit, MD Andika, Reynold, MD Ramay, Tehreem K, MD Shortness of breath (Primary Dx); Acute cough; Acute pulmonary edema (CMS/HCC); Acute respiratory failure with hypoxia; Complete heart block, post-surgical; Acute diastolic heart failure secondary to hypertrophic obstructive cardiomyopathy Discharge Disposition: Home or Self Care 09/05/2025 Travel 08/21/2025 11:40 AM EST Office Visit [facility] Sleep Disorder Center [address] [place] [address] Lavern Galdamez APRN KALEIGH (obstructive sleep apnea) (Primary Dx) 08/21/2025 Travel 08/17/2025 1:42 PM EST - 08/17/2025 11:59 PM EST Hospital Encounter Cardiac Imaging [address] [place] [phone] Pacemaker Discharge Disposition: Home or Self Care 08/17/2025 Travel 08/01/2025 Refill [facility] [address] [place] [address] Sara Webster PA NSVT (nonsustained ventricular tachycardia) (CMS/HCC) 06/29/2025 1:45 PM EDT Consult [facility] [address] [place] [address] Jesse Moffett MD Mixed conductive and sensorineural hearing loss of both ears (Primary Dx); Down syndrome; Bilateral impacted cerumen 06/29/2025 1:00 PM EDT Office Visit [facility] Audiology [address] [address] Arlene Love, Kaitlyn Mixed conductive and sensorineural hearing loss of both ears (Primary Dx) 06/29/2025 Orders Only [facility] Medicine Specialties [address] [place] [address] Emi Orozco PA 06/29/2025 Travel 06/24/2025 Telephone [facility] Ot[facility] [address] [place] [address] Aliyah Chinchilla 06/19/2025 1:20 PM EDT Office Visit [facility] 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 Discharge Disposition: Home or Self Care 06/19/2025 Travel from Last 3 Months Immunizations Immunization Administration Dates Next Due Hep A, Adult 09/11/2018 Influenza, Recombinant, injectable, preservative free 06/23/2025 Influenza, seasonal, injectable, preservative fr ee 06/25/2024 [employer] COVID-19 Vaccine (Purple Cap) 12 + 11/25/2020,11/03/2020 Pneumococcal Polysaccharide PPV23 05/06/2025 Rsv, Bivalent, Protein Subun it Rsvpref, Diluent Reconstituted, 0.5mL, PF 06/23/2025 Family History Medical History Relation Name Comments [...] any time in the past 12 m [facility], were you homeless or living in a penitentiary (including now)? No 09/09/2025 [facility] Utilities Answer Date Recorded In [...] Pulse 71 09/10/2025 1:37 PM EST Temperature 36.3 C (97.3 F) 09/08/2025 11:36 AM EST Respiratory Rate 16 09/08/2025 11:00 AM EST Oxygen Saturation 94% 09/10/2025 1:37 PM EST 02-1L Inhaled Oxygen Concentration - - Weight 102 kg (225 lb 8.5 oz) 09/10/2025 1:37 PM EST Height 149.9 cm (4' 11 ) 09/06/2025 6:39 AM EST Body Mass Index 45.55 09/06/2025 6:39 AM EST Plan of Treatment Upcoming Encounters Date Type Department Care Team (Late st Contact Info) Description 09/18/2025 1:00 PM EST Office Visit [facility] [place] [address] [place] [address] Jordon Tidwell MD [address] [place] [address] 09/25/2025 1:00 PM EST Office Visit [facility] [address] [place] [address] Jesse Moffett MD [address] [place] [address] 09/28/2025 11:30 AM EST Appointment [facility] Breast Care Center [facility] [address] [place] [address] 10/22/2025 1:40 PM EST Office Visit [facility] Sleep Disorder Center [address] [place] [phone] Lavern Galdamez, SECRETARY SPECIALIST [address] [place] [address] 02/08/2026 12:30 PM EDT Office Visit [facility] [address] [place] [address] Emi Orozco PA [address] [place] [address] 02/10/2026 12:20 PM EDT Office Visit [facility] [address] [place] [address] Hannah Tang MD [address] [place] [address] 03/11/2026 2:40 PM EDT Office Visit [facility] [address] [place] [address] Tanja Parsons MD [address] [place] [address] 2026 1:00 PM EDT Appointment Cardiac Imaging [address] [place] [address] 2026 2:40 PM EDT Office Visit [facility] [place] [address] [facility] [place] [phone] Jordon Tidwell MD [address] [place] [address] Health Maintenance Due Date Last Done Comments [facility]-Medicare Annual Wellness (AWV) 1983 [facility]-Infant/Child/Adol SDOH Screenings 1983 [facility]-Varicella Vaccines (1 of 2 - 13+ 2-dose series) 1996 [facility]-DTaP,Tdap,and Td Vaccines (1 - Tdap) 2002 [facility]-Hepatitis B Vaccines (1 of 3 - 19+ 3-dose series) 2002 [facility]-Pap Smear 2004 [facility]-Cervical Cancer Screening 2013 [facility]-HPV/Cotest 2013 [facility]-Pneumococcal Vaccine: Pediatrics (0 to 5 Years) and At-Risk Patients (6 to 49 Years) (1 of 2 - PCV) 05/06/2025 05/06/2025 [facility]-Influenza Vaccine (#1) 2025 06/23/2025, [facility]-CAOGX-81 Vaccine (6 - Pfizer risk 2024- season) 2025 06/30/2025, 06/01/2022, 07/28/2021, Additional history exists [facility]- SDOH Screenings 03/08/2026 [facility]-Adult SDOH Screenings 03/08/2026 09/07/2025 [facility]-Depression Screening 09/10/2026 025, 09/10/2025, 07/28/2024 [facility]-Zoster Vaccines (1 of 2) 2033 [facility]-Hepatitis A Vaccines Aged Out 09/11/2018 No longer eligible based on patient's age to complete this topic [facility]-RSV Vaccine: 60+ Years or Discontinued 06/23/2025 [facility]-HIV Screening Completed 09/05/2025 [facility]-Hepatitis C Screening Completed 09/05/2025 [facility]-Obesity Intervention Completed 025, 09/05/2025, 08/21/2025, Additional history exists HPV Vaccines (No Doses Required) Completed [facility]-HIB Vaccines Aged Out No longer e ligible based on patient's age to complete this topic [facility]-IPV Vaccines Aged Out No longer e ligible based on patient's age to complete this topic [facility]-Rotavirus Vaccines Aged Out No lo nger eligible based on patient's age to complete this topic Medical Devices Implanted Type Area Certified Prosthetist Vice President Device Identifier Shelf Expiration Date Model / Serial / Lot [id number] Quickflex Xl [id number] Lead 1158T QUICKFLEX XL / [id number] / 8tc Tendril Sts [id number] Lead 8TC TEND RIL STS / [id number] / [id number] Tendril Sts [id number] Lead 8TC TEND RIL STS / [id number] / Pacemaker Allure Bi Vent - [id number] Implanted:Qty: 1 on 05/03/2021 by Tanja Parsons MD at [facility] [id number] 05/31/2021 [id number] / [id number] / [id number] Procedures Procedure Name Priority Date/Time Associated Diagnosis Comments PROTHROMBIN TIME(PT) / INR Routine 09/08/2025 5:06 AM EST OXYGEN THERAPY Routine 09/07/2025 8:00 AM EST BASIC METABOLIC PANEL, PLASMA Routine 09/07/2025 3:54 AM EST CBC W/O DIFFERENTIAL Routine 09/07/2025 3:54 AM EST PROTHROMBIN TIME(PT) / INR Routine 09/07/2025 3:54 AM EST OXYGEN THERAPY Routine 09/06/2025 8:00 PM EST OXYGEN THERAPY Routine 09/06/2025 12:02 PM EST OXYGEN THERAPY Routine 09/06/2025 12:02 PM EST PROTHROMBIN TIME(PT) / INR STAT 09/06/2025 10:02 AM EST BLOOD GAS PANEL, VENOUS Routine 09/06/2025 8:20 AM EST BLOOD GAS PANEL, VENOUS STAT 09/06/2025 5:31 AM EST TROPONIN T, HIGH SENSITIVITY, 2 HOUR, PLASMA Timed 09/06/2025 3:[address] ANGIO PULMONARY EMBOLISM STAT 09/06/2025 1:49 AM EST N-TERMINAL PROBNP, PLASMA Add-On 09/06/2025 1:00 AM EST GAMMA GLUTAMYLTRANSFERASE, PLASMA Add-On 09/06/2025 1:00 AM EST TROPONIN T, HIGH SENSITIVITY, 0 HOUR, PLASMA, REFLEX TO 2 HOUR STAT 09/06/2025 1:00 AM EST ECG ADULT STAT 09/05/2025 11:00 PM EST URINALYSIS MICROSCOPIC FOR UA REFLEX STAT 09/05/2025 10:54 PM EST URINE PARIKH PANEL STAT 09/05/2025 10:5 4 PM EST URINALYSIS WITH REFLEX MICROSCOPIC STAT 09/05/2025 10:54 PM EST URINALYSIS WITH REFLEX MICROSCOPIC AND CULTURE STAT 09/05/2025 10:54 PM EST PROTHROMBIN TIME(PT) / INR STAT 09/05/2025 10:54 PM EST SARS-COV-2, FLU A, FLU B, AND RSV - RAPID STAT 09/05/2025 10:54 PM EST XR CHEST 1 VIEW STAT 09/05/2025 10:40 PM EST TEST QUALITATIVE PLASMA STAT Add-on 09/05/2025 10:26 PM EST ED HIV 1/2 ANTIBODY/ANTIGEN SCREEN WITH REFLEX TO HIV I/II DIFFERENTIATION STAT 09/05/2025 10:26 PM EST ED PROTOCOL HIV 1/2 ANTIBODY/ANTIGEN SCREEN W/REFLEX TO HIV 1/2 ANTIBODY DIFFERENTIATION STAT 09/05/2025 10:26 PM EST HEPATITIS C ANTIBODY - ED W/REFLEX TO HCV QUANT PCR STAT 09/05/2025 10:26 PM EST FREE T4, PLASMA STAT 09/05/2025 10:26 PM EST TSH STAT 09/05/2025 10:26 PM EST MAGNESIUM, PLASMA STAT 09/05/2025 10: 26 PM EST N-TERMINAL PROBNP, PLASMA STAT 09/05/2025 10:26 PM EST CBC W/O DIFFERENTIAL STAT 09/05/2025 10:26 PM EST COMPREHENSIVE METABOLIC PANEL, PLASMA STAT 09/05/2025 10:26 PM EST CARDIAC DEVICE CHECK - REMOTE - PACEMAKER Routine 08/17/2025 1:54 PM EST Pacemaker ECG ADULT Routine 06/19/2025 9:57 AM EDT AV canal ECHO, ADULT CONGENITAL TRANSTHORACIC COMPLETE Routine 06/19/2025 9:48 AM EDT Atrioventricular canal H/O mitral valve replacement with mechanical valve 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 Prothrombin Time 26.0(H) 12.0 - 14.3 sec LAB COAGULATION METHOD 09/08/2025 5:43 AM EST [facility] INR 2.4(H) 0.9 - 1.1 LAB COAGULATION METHOD 09/08/2025 5:43 AM EST [facility] Blood Venous blood specimen / Unknown Venipuncture / Unknown 09/08/2025 5:06 AM EST 09/08/2025 5:13 AM EST Narrative [facility] - 09/08/2025 5:43 AM EST OPTIMAL INR RANGES FOR PATIENT ON ORAL ANTICOAGULANT THERAPY Prevention of venous thromboembolism INR 2.0 to 3.0 In patients with heart disease: Atrial fibrillation INR 2.0 to 3.0 Valvular heart disease INR 2.0 to 3.0 Tissue heart valves INR 2.0 to 3.0 Mechanical prosthetic valves INR 2.5 to 3.5 Prevention of recurrent NM INR 2.5 to 3.5 us Armando Dickinson MD LAB BLOOD ORDERABLES Final Res ult [facility] [address] [place] [address] * (ABNORMAL) CBC W/O Differential (09/07/2025 3:54 AM EST) Only the most recent of2 resultswithin the time period is included. WBC Count 9.73 3.70 - 10.30 10*3/uL LAB HEMATOLOGY METHOD 09/07/2025 4:01 AM EST [facility] RBC Count 4.42 3.90 - 5.20 10*6/uL LAB HEMATOLOGY METHOD 09/07/2025 4:01 AM EST [facility] HGB 14.6 11.2 - 15.7 g/dL LAB HEMATOLOGY METHOD 09/07/2025 4:01 AM EST [facility] HCT 43.4 34.0 - 45.0 % LAB HEMATOLOGY METHOD 09/07/2025 4:01 AM EST [facility] Platelet Count 178 155 - 369 10*3/uL LAB HEMATOLOGY METHOD 09/07/2025 4:01 AM EST [facility] MCV 98 79 - 98 fL LAB HEMATOLOGY METHOD 09/07/2025 4:01 AM EST [facility] MCH 33.0(H) 26.0 - 32.0 pg LAB HEMATOLOGY METHOD 09/07/2025 4:01 AM EST [facility] MCHC 33.6 30.7 - 35.5 g/dL LAB HEMATOLOGY METHOD 09/07/2025 4:01 AM EST [facility] RDW 15.5(H) 11.5 - 14.5 % LAB HEMATOLOGY METHOD 09/07/2025 4:01 AM EST [facility] MPV 9.2 8.8 - 12.5 fL LAB HEMATOLOGY METHOD 09/07/2025 4:01 AM EST [facility] nRBC 0.0 <=0.0 per 100 WBCs LAB HEMATOLOGY METHOD 09/07/2025 4:01 AM EST [facility] Blood Venous blood specimen / Unknown Venipuncture / Unknown 09/07/2025 3:54 AM EST 09/07/2025 3:58 AM EST us Armando Dickinson MD LAB BLOOD ORDERABLES Final Res ult [facility] [address] [place] [address] * (ABNORMAL) Basic metabolic panel (09/07/2025 3:54 AM EST) Glucose, Plasma 120(H) 74 - 99 mg/dL 09/07/2025 4:27 AM [facility] BUN, Plasma 19 7 - 21 mg/dL 09/07/2025 4:27 AM [facility] Creatinine, Plasma 0.68 0.60 - 1.10 mg/dL 09/07/2025 4:27 AM EST [facility] BUN/Creatinine Ratio 28 09/07/2025 4:27 AM EST [facility] Sodium, Plasma 139 136 - 145 mmol/L 09/07/2025 4:27 AM [facility] Potassium, Plasma 4.2 3.6 - 4.9 mmol/L 09/07/2025 4:27 AM EST [facility] Chloride, Plasma 102 97 - 107 mmol/L 09/07/2025 4:27 AM EST [facility] CO2, Plasma 28 22 - 29 mmol/L 09/07/2025 4:27 AM EST [facility] Anion Gap 9 6 - 16 mmol/L 09/07/2025 4:27 AM EST [facility] Total Calcium, Plasma 8.4(L) 8.9 - 10.2 mg/dL 09/07/2025 4:27 AM EST [facility] eGFRcr 111.7 mL/min/1.7 3m*2 09/07/2025 4:27 AM EST [facility] Comment:Reported eGFRcr in m L/min/1.73m2 is based the CKD-EPI 2020 equation that does not use a race coefficient. Blood Venous blood specimen / Unknown Venipuncture / Unknown 09/07/2025 3:54 AM EST 09/07/2025 3:58 AM EST us Armando Dickinson MD LAB BLOOD ORDERABLES Final Res ult [facility] [address] [place] [address] * (ABNORMAL) Blood gas panel, venous (09/06/2025 8:20 AM EST) Only the most recent of2 resultswithin the time period is included. pH, Venous 7.38 7.32 - 7.43 LAB HEMATOLOGY METHOD 09/06/2025 8:26 AM EST [facility] pCO2, Venous 55(H) 37 - 52 mmHg LAB HEMATOLOGY METHOD 09/06/2025 8:26 AM EST [facility] pO2, Venous 42(H) 25 - 40 mmHg LAB HEMATOLOGY METHOD 09/06/2025 8:26 AM EST [facility] SO2, Measured, Venous 77 65 - 80 % LAB HEMATOLOGY METHOD 09/06/2025 8:26 AM EST [facility] Base Excess, Venous 4.9(H) -2.0 - 3.0 mmol/L LAB HEMATOLOGY METHOD 09/06/2025 8:26 AM EST [facility] Bicarbonate, Calculated, Venous 32(H) 22 - 26 mmol/L LAB HEMATOLOGY METHOD 09/06/2025 8:26 AM EST [facility] Hematocrit, Whole Blood 51.3(H) 34.0 - 45.0 % LAB HEMATOLOGY METHOD 09/06/2025 8:26 AM EST [facility] Sodium, Whole Blood 144 136 - 145 mmol/L LAB HEMATOLOGY METHOD 09/06/2025 8:26 AM EST [facility] Potassium, Whole Blood 4.0 3.6 - 4.9 mmol/L LAB HEMATOLOGY METHOD 09/06/2025 8:26 AM EST [facility] Chloride, Whole Blood 101 97 - 107 mmol/L LAB HEMATOLOGY METHOD 09/06/2025 8:26 AM EST [facility] Glucose, Whole Blood 135(H) 74 - 99 mg/dL LAB HEMATOLOGY METHOD 09/06/2025 8:26 AM EST [facility] Lactate, Venous, Whole Blood 1.1 0.5 - 2.2 mmol/L LAB HEMATOLOGY METHOD 09/06/2025 8:26 AM EST [facility] Ionized Calcium, Whole Blood 4.6 4.6 - 5.1 mg/dL LAB HEMATOLOGY METHOD 09/06/2025 8:26 AM EST [facility] Blood Venous blood specimen / Unknown Venipuncture / Unknown 09/06/2025 8:20 AM EST 09/06/2025 8:25 AM EST us Amadou Vann APRN, DNP LAB BLOOD ORDERAB LES Final Result Performing Organization Address City/[facility]/ZIP Co de Phone Number [facility] [address] [place] [address] * Troponin T, High Sensitivity, 2 Hour, Plasma (09/06/2025 3:15 AM EST) [facility] Troponin T, High Sensitivity, 2 Hour 10 <14 ng/L 09/06/2025 3:50 AM EST [facility] Troponin Delta 4 <10 ng/L 09/06/2025 3:50 AM EST [facility] Troponin Delta Interpretation Not Significant 09/06/2025 3:50 AM EST [facility] Comment:Not Significant. No acute change in troponin observed between the baseline and 2 hour samples. Blood Venous blood specimen / Unknown Venipuncture / Unknown 09/06/2025 3:15 AM EST 09/06/2025 3:23 AM EST us Freya Liu APRN LAB BLOOD ORDERABLES Final Result [facility] [address] [place] [address] * CT Angio Pulmonary Embolism (09/06/2025 1:49 [...] Lares MD on 09/06/2025 2:05 AM Freya Liu SECRETARY SPECIALIST IMG CT PROCEDURES Final Res ult * (ABNORMAL) Troponin now and 120 min (09/06/2025 1:00 AM EST) Troponin T, High Sensitivity, 0 Hour 14(H) <14 ng/L 09/06/2025 1:27 AM EST [facility] Blood Venous blood specimen / Unknown Venipuncture / Unknown 09/06/2025 1:00 AM EST 09/06/2025 1:06 AM EST Freya Liu APRN LAB BLOOD ORDERABLES Final Result Performing Organization Address City/[facility] Co de Phone Number [facility] [address] [place] [address] * N-Terminal Probnp (09/06/2025 1:00 AM EST) Only the most recent of2 resultswithin the time period is included. N-Terminal, PROBNP, Plasma 339 0 - 449 pg/mL 09/06/2025 11:54 AM EST [facility] Blood Venous blood specimen / Unknown Venipuncture / Unknown 09/06/2025 1:00 AM EST 09/06/2025 1:06 AM EST us Armando Dickinson MD LAB BLOOD ORDERABLES Final Res ult Performing Organization Address City/[facility]/ZIP Co de Phone Number [facility] [address] [place] [address] * (ABNORMAL) GGT (09/06/2025 1:00 AM EST) GGT, Plasma 129(H) 5 - 36 U/L 09/06/2025 8:47 AM EST [facility] Blood Venous blood specimen / Unknown Venipuncture / Unknown 09/06/2025 1:00 AM EST 09/06/2025 1:06 AM EST us Amadou Vann APRN, DNP LAB BLOOD ORDERAB LES Final Result Performing Organization Address City/[facility] Co de Phone Number [facility] [address] [place] [address] * EKG now - STAT (adult) (09/05/2025 11:00 PM EST) Only the most recent of2 resultswithin the time period is included. EKG DIAGNOSIS CLASS Abnormal MUSE ECG Ventricular Rate 71 BPM MUSE ECG Atrial Rate 258 BPM MUSE ECG QRSD Interval 138 ms MUSE ECG QT Interval 440 ms MUSE ECG QTC Interval 478 ms MUSE ECG R [place] 236 degrees MUSE ECG T Wave [place] 59 degrees MUSE ECG Diagnosis Biventricular pacemaker detected MUSE ECG Diagnosis Ventricular-pace d rhythm MUSE ECG Diagnosis Baseline Artifact Electrode noise MUSE ECG Diagnosis Abnormal ECG MUSE ECG Diagnosis MUSE ECG Diagnosis Confirmed by Jass Stafford ([id number]) on 09/06/2025 12:22:26 PM MUSE ECG 09/05/2025 11:0 0 PM EST 09/06/2025 12:22 PM EST us Mykel Stephen MD ECG ORDERABLES Final Result Performing Organization Address City/[facility] Co de Phone Number MUSE ECG * SARS-CoV-2, Flu A, Flu B, and RSV - Rapid (09/05/2025 10:54 PM EST) SARS CoV-2/COVID-19 RNA PCR Result Not Detected Not Detected 09/06/2025 12:21 AM EST [facility] Influenza A Virus PCR Result Not Detected Not Detected 09/06/2025 12:21 AM EST [facility] Influenza B Virus PCR Result Not Detected Not Detected 09/06/2025 12:21 AM EST [facility] Respiratory Syncytial Virus (RSV) PCR Result Not Detected Not Detected 09/06/2025 12:21 AM EST [facility] Swab Nasopharyngeal structure / Unknown Non-blood Collection / Unknown 09/05/2025 10:54 PM EST 09/05/2025 11:31 PM EST Narrative [facility] - 09/06/2025 12:21 AM EST This [...] signs and symptoms consistent with COVID-19. Mykel Stephen MD LAB MICROBIOLOGY - GENERAL ORDER BELLO Final Result Performing Organization Address City/[facility]/ZIP Co de Phone Number [facility] [address] [place] [address] * Urine Parikh Panel (09/05/2025 10:54 PM EST) Extra Specimen evaluation in progress 09/06/2025 1:02 AM EST [facility] Urine Urine specimen obtained by clean catch procedure / Unknown Non-blood Collection / Unknown 09/05/2025 10:54 PM EST 09/05/2025 11:01 PM EST Freya Liu APRN LAB URINE ORDERABLES Final Result Performing Organization Address City/[facility]/ZIP Co de Phone Number [facility] [address] [place] [address] * Urinalysis Microscopic Examination (09/05/2025 10:54 PM EST) Urine Urine specimen obtained by clean catch procedure / Unknown Non-blood Collection / Unknown 09/05/2025 10:54 PM EST 09/05/2025 11:01 PM EST Freya Liu APRN LAB URINE ORDERABLES Final Result [facility] [address] [place] [address] * (ABNORMAL) Urinalysis with reflex microscopic (Culture NOT Included) (09/05/2025 10:54 PM EST) Color, Urine Yellow LAB URINALYSIS - AUTOMATED METHOD 09/05/2025 11:25 PM EST [facility] Clarity, Urine Clear LAB URINALYSIS - AUTOMATED METHOD 09/05/2025 11:25 PM EST [facility] Spec [place], Urine 1.019 1.005 - 1.030 LAB URINALYSIS - AUTOMATED METHOD 09/05/2025 11:25 PM EST [facility] pH, Urine 6.0 5.0 - 8.0 LAB URINALYSIS - AUTOMATED METHOD 09/05/2025 11:25 PM [facility] Protein, Urine Negative Negative mg/dL LAB URINALYSIS - AUTOMATED METHOD 09/05/2025 11:25 PM EST [facility] Glucose, Urine Negative Negative mg/dL LAB URINALYSIS - AUTOMATED METHOD 09/05/2025 11:25 PM [facility] Ketones, Urine Negative Negative mg/dL LAB URINALYSIS - AUTOMATED METHOD 09/05/2025 11:25 PM [facility] Blood, Urine Negative Negative LAB URINALYSIS - AUTOMATED METHOD 09/05/2025 11:25 PM [facility] Bilirubin, Urine Negative Negative LAB URINALYSIS - AUTOMATED METHOD 09/05/2025 11:25 PM [facility] Urobilinogen, Urine 0.2 0.2 to 1.0 mg/dL LAB URINALYSIS - AUTOMATED METHOD 09/05/2025 11:25 PM [facility] Leukocytes, Urine Small(A) Negative LAB URINALYSIS - AUTOMATED METHOD 09/05/2025 11:25 PM [facility] Nitrite, Urine Negative Negative LAB URINALYSIS - AUTOMATED METHOD 09/05/2025 11:25 PM [facility] RBC, Urine 1 0 to 3 /HPF LAB URINALYSIS - AUTOMATED METHOD 09/05/2025 11:25 PM [facility] WBC, Urine 0 - 5 0 to 5 /HPF LAB URINALYSIS - AUTOMATED METHOD 09/05/2025 11:25 PM EST [facility] Squamous Epithelial Cells 3 - 5 0 to 5 /HPF LAB URINALYSIS - AUTOMATED METHOD 09/05/2025 11:25 PM EST [facility] Hyaline Casts 0 - 2 0 to 5 /LPF LAB URINALYSIS - AUTOMATED METHOD 09/05/2025 11:25 PM EST [facility] Bacteria, Urine Negative Negative LAB URINALYSIS - AUTOMATED METHOD 09/05/2025 11:25 PM EST [facility] Urine Urine specimen obtained by clean catch procedure / Unknown Non-blood Collection / Unknown 09/05/2025 10:54 PM EST 09/05/2025 11:01 PM EST us Freya Liu APRN LAB URINE ORDERABLES Final Result [facility] [address] [place] [address] * XR Chest 1 View (09/05/2025 10:40 [...] MD IMG XR PROCEDURES Final Result * ED HIV 1/2 Antibody/Antigen Screen w/Reflex to HIV 1/2 Differentiation (09/05/2025 10:26 PM EST) [facility] HIV 1 & 2 Antibody/Antigen Screen Non Reactive Non Reactive 09/06/2025 3:24 AM EST [facility] Comment:Screening for HIV 1 & 2 antibodies, and P24 antigen is NONREACTIVE. No confirmatory testing is required. Blood Venous blood specimen / Unknown Venipuncture / Unknown 09/05/2025 10:26 PM EST 09/05/2025 10:32 PM EST us Mykel Stephen MD LAB BLOOD ORDERABLES Final Resul t [facility] [address] [place] [address] * Hepatitis C Antibody - ED (09/05/2025 10:26 PM EST) Pathologist [facility] Hepatitis C Antibody Negative Negative 09/06/2025 3:31 AM EST [facility] Blood Venous blood specimen / Unknown Venipuncture / Unknown 09/05/2025 10:26 PM EST 09/05/2025 10:32 PM EST us Mykel Stephen MD LAB BLOOD ORDERABLES Final Resul t [facility] [address] [place] [address] * hCG qualitative (09/05/2025 10:26 PM EST) Test Negative Negative 09/06/2025 12:52 AM EST [facility] Blood Venous blood specimen / Unknown Venipuncture / Unknown 09/05/2025 10:26 PM EST 09/05/2025 10:[address] [facility] - 09/06/2025 12:52 AM EST Reference Range: Males and non- females: Negative. us Freya Liu APRN LAB BLOOD ORDERABLES Final Result Performing Organization Address [facility] [place] [address] * Thyroid Stimulating Hormone, Plasma (09/05/2025 10:26 PM EST) Pathologist [facility] Thyroid Stimulating Hormone, Plasma 2.40 0.40 - 4.20 uIU/mL 09/05/2025 10:55 PM EST [facility] Blood Venous blood specimen / Unknown Venipuncture / Unknown 09/05/2025 10:26 PM EST 09/05/2025 10:27 PM EST Narrative [facility] - 09/05/2025 10:55 PM EST Trimester Specific Ranges TSH ( IU/mL) 1st Trimester 0.1 - 3.0 2nd Trimester 0.19 - 4.06 3rd Trimester 0.3 - 3.7 us Mykel Stephen MD LAB BLOOD ORDERABLES Final Resul t [facility] [address] [place] [address] * Free T4, Plasma (09/05/2025 10:26 PM EST) Free T4, Plasma 1.7 0.8 - 1.7 ng/dL 09/05/2025 10:55 PM EST [facility] Blood Venous blood specimen / Unknown Venipuncture / Unknown 09/05/2025 10:26 PM EST 09/05/2025 10:27 PM EST Narrative [facility] - 09/05/2025 10:55 PM EST Free T4 Trimester Specific Ranges 1st Trimester 0.9 - 1.50 ng/dL 2nd Trimester 0.7 - 1.40 ng/dL 3rd Trimester 0.7 - 1.24 ng/dL us Mykel Stephen MD LAB BLOOD ORDERABLES Final Resul t Performing Organization Address City/[facility]/[place] [address] * Magnesium (09/05/2025 10:26 PM EST) Magnesium, Plasma 2.0 1.9 - 2.4 mg/dL 09/05/2025 10:55 PM EST [facility] Blood Venous blood specimen / Unknown Venipuncture / Unknown 09/05/2025 10:26 PM EST 09/05/2025 10:27 PM EST us Mykel Stephen MD LAB BLOOD ORDERABLES Final Resul t [facility] [address] [place] [address] * (ABNORMAL) CMP (09/05/2025 10:26 PM EST) Glucose, Plasma 104(H) 74 - 99 mg/dL 09/05/2025 10:55 PM EST [facility] BUN, Plasma 16 7 - 21 mg/dL 09/05/2025 10:55 PM EST [facility] Creatinine, Plasma 0.72 0.60 - 1.10 mg/dL 09/05/2025 10:55 PM EST [facility] BUN/Creatinine Ratio 22 09/05/2025 10:55 PM EST [facility] Sodium, Plasma 143 136 - 145 mmol/L 09/05/2025 10:55 PM EST [facility] Potassium, Plasma 4.3 3.6 - 4.9 mmol/L 09/05/2025 10:55 PM EST [facility] Chloride, Plasma 106 97 - 107 mmol/L 09/05/2025 10:55 PM EST [facility] CO2, Plasma 29 22 - 29 mmol/L 09/05/2025 10:55 PM EST [facility] Anion Gap 8 6 - 16 mmol/L 09/05/2025 10:55 PM EST [facility] Total Calcium, Plasma 9.1 8.9 - 10.2 mg/dL 09/05/2025 10:55 PM [facility] Total Protein 7.7 6.3 - 7.9 g/dL 09/05/2025 10:55 PM EST [facility] Albumin, Plasma 3.7 3.5 - 5.2 g/dL 09/05/2025 10:55 PM EST [facility] AST, Plasma 30 10 - 35 U/L 09/05/2025 10:55 PM [facility] ALT, Plasma 28 10 - 35 U/L 09/05/2025 10:55 PM EST [facility] Alkaline Phosphatase, Plasma 117(H) 35 - 104 U/L 09/05/2025 10:55 PM EST [facility] Total Bilirubin, Plasma 0.4 0.2 - 1.1 mg/dL 09/05/2025 10:55 PM [facility] eGFRcr 107.2 mL/min/1.7 3m*2 09/05/2025 10:55 PM EST [facility] Comment:Reported eGFRcr in m L/min/1.73m2 is based the CKD-EPI 2020 equation that does not use a race coefficient. 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 [...] APRN CV ECHO PROCEDURES Final Re sult from Last [address] [place] [address] MEDICARE [facility] Advance Directives * Full Code (Latest Code Status on File) Date Activated Date Inactivated Comments 09/06/2025 6:37 AM 09/08/2025 3:51 PM Question Answer Comments I have reviewed the capacity from the link above and, if needed, have updated to appropriate status: Yes * Full Code Date Activated Date Inactivated Comments 05/17/2021 5:32 PM 05/18/2021 4:30 PM Question Answer Comments Patient has decision-making capacity? Yes Care Teams Inspector Quality Assurance Relationship Specialty Start Date End Date Espinoza Thakur MD [address] [place] [address] #1 [address]1 [place] [id number] PCP - General 02/11/21 Vanda Greenberg LPN None None TCM Nurse 09/09/25
--- OUTSIDE RECORDS SUMMARY | 2025-09-15 11:45 | XMS_ITS | Encounter Summary ---
Author Organization Healthcare Address [address] [place] [address] Care Team Providers Care Studio Coordinator Name Role Phone Espinoza Thakur MD Primary Care Provider [phone] Encounter Details Date Type Department Care Team (Latest Contact Info) Description 08/17/2025 Travel Social History Tobacco Use Types Packs/Day [...] Description 09/18/2025 1:00 PM EST Office Visit [facility] [place] [address] [place] [address] Jordon Tidwell MD [address] [place] [address] 09/25/2025 1:00 PM EST Office Visit [facility] [address] [place] [address] Jeses Moffett MD [address] [place] [address] 09/28/2025 11:30 AM EST Appointment [facility] Breast Care Center [facility] [address] [place] [address] 10/22/2025 1:40 PM EST Office Visit [facility] Sleep Disorder Center [address] [place] [phone] Lavern Galdamez, CLINICAL DATA RESEARCH [address] [place] [address] 02/08/2026 12:30 PM EDT Office Visit [facility] Medicine Specialties [address] [place] [address] Emi Orozco PA [address] [place] [address] 02/10/2026 12:20 PM EDT Office Visit [facility] Women's Health [address] [place] [address] Hannah Tang MD [address] [place] [address] 03/11/2026 2:40 PM EDT Office Visit [facility] [place] [address] [place] [phone] Tanja Parsons MD [address] [place] [address] 2026 1:00 PM EDT Appointment Cardiac Imaging [address] [place] [address] 2026 2:40 PM EDT Office Visit [facility] [place] [address] [facility] [place] [address] Jordon Tidwell MD [address] [place] [phone] documented as of this encounter Visit Diagnoses [...] documented as of this encounter Care Teams Studio Coordinator Relationship Specialty Start Date End Date Espinoza Thakur MD [address] [place] [address] [address]1 [address] [place] [address] PCP - General 02/11/21 documented as of this encounter
--- OUTSIDE RECORDS SUMMARY | 2025-09-15 11:45 | XMS_ITS | Encounter Summary ---
Author Organization Healthcare Address [address] [place] [address] Care Team Providers Care Hog Feeder Name Role Phone Espinoza Thakur MD Primary Care Provider [phone] Encounter Details Date Type Department Care Team (Latest Contact Info) Description 09/05/2025 Travel Social History Tobacco Use Types Packs/Day [...] Description 09/18/2025 1:00 PM EST Office Visit [facility] [address] [place] [address] Jordon Tidwell MD [address] [place] [address] 09/25/2025 1:00 PM EST Office Visit [facility] [address] [place] [address] Jesse Moffett MD [address] [place] [address] 09/28/2025 11:30 AM EST Appointment [facility] Breast Care Center [facility] [address] [place] [address] 10/22/2025 1:40 PM EST Office Visit [facility] Sleep Disorder Center [address] [place] [phone] Lavern Galdamez, GREENHOUSE WORKER [address] [place] [address] 02/08/2026 12:30 PM EDT Office Visit [facility] Medicine Specialties [address] [place] [address] Emi Orozco PA [address] [place] [address] 02/10/2026 12:20 PM EDT Office Visit [facility] Women's Health [address] [place] [address] Hannah Tang MD [address] [place] [address] 03/11/2026 2:40 PM EDT Office Visit [facility] [address] [place] [phone] Tanja Parsons MD [address] [place] [address] 2026 1:00 PM EDT Appointment Cardiac Imaging [address] [place] [phone] 2026 2:40 PM EDT Office Visit [facility] [address] [facility]. [address] [place] [phone] Jordon Tidwell MD [address] [place] [address] documented as of this encounter Visit Diagnoses [...] documented as of this encounter Care Teams Hog Feeder Relationship Specialty Start Date End Date Espinoza Thakur MD [address] [place] [address] #1 [address]1 [place] [address] PCP - General 02/11/21 documented as of this encounter
--- OUTSIDE RECORDS SUMMARY | 2025-09-15 11:46 | XMS_ITS ---
Author Organization [facility] Address [address] [id number] Care Team Providers Care Animal Treatment Investigator Name Role Phone Espinoza Thakur MD Primary Care Provider [phone] Vanda Greenberg LPN Unavailable Unavailable Transitional Care Management Status:Active (Active) Program category:Transitional Care Management - [facility] Start date:09/09/2025 Enrollment date:09/09/2025 Enrollment reason:Identified using hospital discharge data Overview This episode type is for outpatient care managers enrolling patients in the [facility] Transitional Care Management program. Case Team Name Relationship Phone Vanda Greenberg LPN(Responsible Staff) TCM Nurse Continued Care and Services Coordination
[2025-09-15 12:41] LABS: Potassium 4.2 mmoL/L (3.5-5.1)
== END 2025-09-15 23:59 | disposition home or self-care (01) ==
LOC: LAB 11:33
PROVIDERS: PCP Family Medicine; Visit Provider Family Medicine
DX: E87.6 Hypokalemia (principal)
CPT/HCPCS: 36415; 84132

== ENCOUNTER 2025-09-28 14:20 | Outpatient (CLI) | payer MEDICARE, OTHER, SELFPAY ==
--- OUTSIDE RECORDS SUMMARY | 2025-08-17 13:42 | XMS_ITS | Encounter Summary ---
Author Organization Healthcare Address [address] [place] [address] Care Team Providers Care Cook Helper Juice Name Role Phone Espinoza Thakur MD Primary Care Provider [phone] Encounter Details Date Type Department Care Team (Latest Contact Info) Description 08/17/2025 1:42 PM EST - 08/17/2025 11:59 PM [facility] Hospital Encounter Cardiac Imaging [address] [place] [address] Pacemaker Discharge Disposition: Home or Self Care [...] Care Team (Late st Contact Info) Description 10/22/2025 1:40 PM EST Office Visit [facility] Sleep Disorder Center [address]th [place] [address] Lavern Galdamez, PLASTIC SHEETS SUPERVISOR [address] [place] [address] 02/08/2026 12:30 PM EDT Office Visit [facility] Medicine Specialties [address] [place] [address] Emi Orozco PA [address] [place] [address] 02/10/2026 12:20 PM EDT Office Visit [facility] Women's Health [address] [place] [address] Hannah Tang MD [address] [place] [address] 03/11/2026 2:40 PM EDT Office Visit [facility] [place] [address] [place] [address] Tanja Parsons MD [address] [place] [address] 2026 1:00 PM EDT Appointment Cardiac Imaging [address] [place] [address] 2026 2:40 PM EDT Office Visit [facility] [address] [place] [address] Jordon Tidwell MD [address] [place] [address] documented as of this encounter [...] documented as of this encounter Care Teams Cook Helper Juice Relationship Specialty Start Date End Date Espinoza Thakur MD [address] [place] [address] #1 [address]1 [place] [address] PCP - General 02/11/21 documented as of this encounter
--- OUTSIDE RECORDS SUMMARY | 2025-08-21 11:40 | XMS_ITS | Encounter Summary ---
Author Organization Healthcare Address [address] [place] [address] Care Team Providers Care Physical Therapy Teacher Name Role Phone Espinoza Thakur MD Primary Care Provider [phone] Reason for Referral * Other Medical (Routine) - Pending Review Specialty Diagnoses / Procedures Referred By Neema burger Referred To Contact Sleep Medicine Diagnoses KALEIGH (obstructive sleep apnea) Procedures Adult Overnight Pulse Oximetry Lavern Galdamez APRN [address] [place] [address] Phone: tel: fax: Referral ID Status Reason Start Date Expiration Date Visits Requested Visits Authorized [id number] Pending Review Specialty Services Required 02/20/2027 1 1 Reason for Visit * Reason Comments Follow-up * Consultation (Routine) - Closed Specialty Diagnoses / Procedures Referred By Neema burger Referred To Contact Diagnoses KALEIGH (obstructive sleep apnea) Polina Granados MD [address] [place] [address] Phone: tel: fax: Referral ID Status Reason Start Date Expiration Date Visits Re quested Visits Authorized [id number] Closed 02/19/2025 08/21/2026 1 1 Encounter Details Date Type Department Care Team (Late st Contact Info) Description 08/21/2025 11:40 AM EST Office Visit [facility] [address] [place] [address] Lavern Galdamez APRN [address] [place] [phone] KALEIGH (obstructive sleep apnea) (Primary Dx) Social [...] 11:00 AM EST documented in this encounter Functional Status * BP Answer Date of Assessment Author 121/65 08/21/2025 11:00 AM EST Dontrell Taylor * Pulse Answer Date of Assessment Author 71 08/21/2025 11:00 AM Dontrell Avilez * SpO2 Answer Date of Assessment Author 95 08/21/2025 11:00 AM Dontrell Avilez * Height Answer Date of Assessment Author 59 08/21/2025 11:00 AM Dontrell Avilez * Weight Answer Date of Assessment Author 3633.18 08/21/2025 11:00 AM Dontrell Avilez * BMI (Calculated) Answer Date of Assessment Author 46 08/21/2025 11:00 AM Dontrell Avilez * Percent Excess Weight Loss Answer Date of Assessment Author 0 08/21/2025 11:00 AM EST Taylor, El sie * Total Weight Change Percent Answer Date of Assessment Author 2222 08/21/2025 11:00 AM EST Taylor, El sie * Weight Change Since Preop Answer Date of Assessment Author 102.98 08/21/2025 11:00 AM EST Taylor, El sie * Initial Excess Weight Answer Date of Assessment Author -43.09 08/21/2025 11:00 AM EST Taylor, El sie * IBW in lbs (Bariatric) Answer Date of Assessment Author 95 08/21/2025 11:00 AM EST Taylor, El sie * Weight Change Since Last Visit Answer Date of Assessment Author 102.98 08/21/2025 11:00 AM EST Taylor, El sie * IBW in kg (Bariatric) Answer Date of Assessment Author 43.09 08/21/2025 11:00 AM EST Taylor, El sie * Percent of IBW Answer Date of Assessment Author 8,431.61 08/21/2025 11:00 AM EST Taylor, El sie * EBW (kg) Answer Date of Assessment Author 3,631.96 08/21/2025 11:00 AM EST Taylor, El sie * EBW (lbs) Answer Date of Assessment Author 3,627.24 08/21/2025 11:00 AM EST Taylor, El sie * Weight Change 24 hrs Answer Date of Assessment Author .8 08/21/2025 11:00 AM EST Taylor, El sie * BSA (Calculated - sq m) Answer Date of Assessment Author 2.07 08/21/2025 11:00 AM EST Taylor, El sie * BMI (Calculated) Answer Date of Assessment Author 45.84 08/21/2025 11:00 AM EST Taylor, El sie * IBW/kg (Calculated) Male Answer Date of Assessment Author 47.7 08/21/2025 11:00 AM EST Taylor, El sie * IBW/kg (Calculated) Female Answer Date of Assessment Author 43.2 08/21/2025 11:00 AM EST Taylor, El sie * IBW/kg (Calculated) Answer Date of Assessment Author 43.2 08/21/2025 11:00 AM EST Taylor, El sie * Weight in (lb) to have BMI = 25 Answer Date of Assessment Author 123.5 08/21/2025 11:00 AM EST Taylor, El sie * BMI (Calculated) Answer Date of Assessment Author 46 08/21/2025 11:00 AM EST Taylor, El sie * Percent Excess Weight Loss Answer Date of Assessment Author 0 08/21/2025 11:00 AM EST Taylro, El sie * Weight Change Since Preop Answer Date of Assessment Author 103 08/21/2025 11:00 AM EST Taylor, El sie * Initial Excess Weight Answer Date of Assessment Author -43.09 08/21/2025 11:00 AM EST Taylor, El sie * IBW in kg (Bariatric) Answer Date of Assessment Author 43.09 08/21/2025 11:00 AM EST Taylor, El sie * IBW in lb (Bariatric) Answer Date of Assessment Author 95 08/21/2025 11:00 AM EST Taylor, El sie * Weight Change Since Last Visit Answer Date of Assessment Author 103 08/21/2025 11:00 AM EST Taylor, El sie * Percent of IBW Answer Date of Assessment Author 239.03 08/21/2025 11:00 AM EST Taylor, El sie * EBW (kg) Answer Date of Assessment Author 59.89 08/21/2025 11:00 AM EST Taylor, El sie * EBW (lb) Answer Date of Assessment Author 132.07 08/21/2025 11:00 AM EST Taylor, El sie * Difference in Weight Since Last Visit Answer Date of Assessment Author 0.8 08/21/2025 11:00 AM EST Taylor, El sie * IBW/kg (Calculated) Answer Date of Assessment Author 43.2 08/21/2025 11:00 AM EST Taylor, El sie * Adult Low Range Vt 6mL/kg Answer Date of Assessment Author 259.2 08/21/2025 11:00 AM EST Taylor, El sie * Adult Moderate Range Vt 8mL/kg Answer Date of Assessment Author 345.6 08/21/2025 11:00 AM EST Taylor, El sie * Adult High Range Vt 10mL/kg Answer Date of Assessment Author 432 08/21/2025 11:00 AM EST Taylor, El sie * Pain Score Answer Date of Assessment Author 0 08/21/2025 11:00 AM EST Taylor, El sie * Pain Screening/Additional Assessments Question Answer Date of Assessment Author Pain Screening/Assessments Pain Screening 08/21/2025 1 1:00 AM EST Papa Taylorie * Pain Screening Answer Date of Assessment Author 0-10 08/21/2025 11:00 AM EST Taylor, El sie * BP Answer Date of Assessment Author 121/65 08/21/2025 11:00 AM EST Taylor, El sie * Pulse Answer Date of Assessment Author 71 08/21/2025 11:00 AM EST Taylor, El sie * SpO2 Answer Date of Assessment Author 95 08/21/2025 11:00 AM EST Taylor, El sie * Height Answer Date of Assessment Author 59 08/21/2025 11:00 AM EST Taylor, El sie * Weight Answer Date of Assessment Author 3633.18 08/21/2025 11:00 AM EST Taylor, El sie * BSA (Calculated - sq m) Answer Date of Assessment Author 2.07 08/21/2025 11:00 AM EST Taylor, El sie * BMI (Calculated) Answer Date of Assessment Author 45.84 08/21/2025 11:00 AM EST Taylor, El sie * Weight in (lb) to have BMI = 25 Answer Date of Assessment Author 123.5 08/21/2025 11:00 AM EST Taylor, El sie * Pain Score Answer Date of Assessment Author 0 08/21/2025 11:00 AM EST Taylor, El sie documented as of this encounter Mental Status * BP Answer Entry Date Author 121/65 08/21/2025 11:00 AM EST Taylor, El sie * Pulse Answer Entry Date Author 71 08/21/2025 11:00 AM EST Taylor, El sie * SpO2 Answer Entry Date Author 95 08/21/2025 11:00 AM EST Taylor, El sie * Height Answer Entry Date Author 59 08/21/2025 11:00 AM EST Taylor, El sie * Weight Answer Entry Date Author 3633.18 08/21/2025 11:00 AM EST Taylor, El sie * BMI (Calculated) Answer Entry Date Author 46 08/21/2025 11:00 AM EST Taylor, El sie * Percent Excess Weight Loss Answer Entry Date Author 0 08/21/2025 11:00 AM EST Taylor, El sie * Total Weight Change Percent Answer Entry Date Author 222108/21/2025 11:00 AM EST Taylor, El sie * Weight Change Since Preop Answer Entry Date Author 102.98 08/21/2025 11:00 AM EST Taylor, El sie * Initial Excess Weight Answer Entry Date Author -43.09 08/21/2025 11:00 AM EST Taylor, El sie * IBW in lbs (Bariatric) Answer Entry Date Author 95 08/21/2025 11:00 AM EST Taylor, El sie * Weight Change Since Last Visit Answer Entry Date Author 102.98 08/21/2025 11:00 AM EST Taylor, El sie * IBW in kg (Bariatric) Answer Entry Date Author 43.09 08/21/2025 11:00 AM EST Taylor, El sie * Percent of IBW Answer Entry Date Author 8,431.61 08/21/2025 11:00 AM EST Taylor, El sie * EBW (kg) Answer Entry Date Author 3,631.96 08/21/2025 11:00 AM EST Taylor, El sie * EBW (lbs) Answer Entry Date Author 3,627.24 08/21/2025 11:00 AM EST Taylor, El sie * Weight Change 24 hrs Answer Entry Date Author .8 08/21/2025 11:00 AM EST Taylor, El sie * BSA (Calculated - sq m) Answer Entry Date Author 2.07 08/21/2025 11:00 AM EST Taylor, El sie * BMI (Calculated) Answer Entry Date Author 45.84 08/21/2025 11:00 AM EST Taylor, El sie * IBW/kg (Calculated) Male Answer Entry Date Author 47.7 08/21/2025 11:00 AM EST Taylor, El sie * IBW/kg (Calculated) Female Answer Entry Date Author 43.2 08/21/2025 11:00 AM EST Taylor, El sie * IBW/kg (Calculated) Answer Entry Date Author 43.2 08/21/2025 11:00 AM EST Taylor, El sie * Ask Suicide-Screening Questions Question Answer Entry Date Author 1. In the past few weeks, have you wished you were ? No 08/21/2025 11:01 AM Jenny Avilez 2. In the past few weeks, have you felt that you or your family would be better off if you were ? No 08/21/2025 11:01 AM Jenny Avilez 3. In the past week, have you been having thoughts about killing yourself? No 08/21/2025 11:01 AM Jenny Avilez 4. Have you ever tried to kill yourself? No 08/21/2025 11:01 AM Jenny Avilez 5. Are you having thoughts of killing yourself right now? No 08/21/2025 11:01 AM Jenny Avilez Calculated Risk Score No intervention is necessary at this time 08/21/2025 11:01 AM Jenny Avilez * Restart Pain Assessment Timer Answer Entry Date Author Yes 08/21/2025 11:00 AM EST Brandon, El sie * Weight in (lb) to have BMI = 25 Answer Entry Date Author 123.5 08/21/2025 11:00 AM EST Taylor, El sie * BMI (Calculated) Answer Entry Date Author 46 08/21/2025 11:00 AM EST Taylor, El sie * Percent Excess Weight Loss Answer Entry Date Author 0 08/21/2025 11:00 AM EST Taylor, El sie * Weight Change Since Preop Answer Entry Date Author 103 08/21/2025 11:00 AM EST Taylor, El sie * Initial Excess Weight Answer Entry Date Author -43.09 08/21/2025 11:00 AM EST Taylor, El sie * IBW in kg (Bariatric) Answer Entry Date Author 43.09 08/21/2025 11:00 AM EST Taylor, El sie * IBW in lb (Bariatric) Answer Entry Date Author 95 08/21/2025 11:00 AM EST Taylor, El sie * Weight Change Since Last Visit Answer Entry Date Author 103 08/21/2025 11:00 AM EST Taylor, El sie * Percent of IBW Answer Entry Date Author 239.03 08/21/2025 11:00 AM EST Taylor, El sie * EBW (kg) Answer Entry Date Author 59.89 08/21/2025 11:00 AM EST Taylor, El sie * EBW (lb) Answer Entry Date Author 132.07 08/21/2025 11:00 AM EST Taylor, El sie * Difference in Weight Since Last Visit Answer Entry Date Author 0.8 08/21/2025 11:00 AM EST Taylor, El sie * IBW/kg (Calculated) Answer Entry Date Author 43.2 08/21/2025 11:00 AM EST Taylor, El sie * Adult Low Range Vt 6mL/kg Answer Entry Date Author 259.2 08/21/2025 11:00 AM EST Taylor, El sie * Adult Moderate Range Vt 8mL/kg Answer Entry Date Author 345.6 08/21/2025 11:00 AM EST Taylor, El sie * Adult High Range Vt 10mL/kg Answer Entry Date Author 432 08/21/2025 11:00 AM EST Taylor, El sie * Pain Score Answer Entry Date Author 0 08/21/2025 11:00 AM EST Taylor, El sie * Pain Screening Answer Entry Date Author 0-10 08/21/2025 11:00 AM EST Taylor, El sie documented in this encounter Miscellaneous Notes * Progress Notes - Lavern Galdamez, ANNY - 08/21/2025 11:40 AM EST Subjective Dear Espinoza Bailey MD, I had the pleasure of seeing Sharona Sanchez at the [facility] with/for Follow-up. Visit Type: Established patient HPI Sharona Sanchez is a 40 y.o. female established patient who presents today for follow-up. Patient accompanied by family today. Patient initially established care with August 2024. Patient had a PSG in 2019 at [facility] showed KALEIGH with AHI 56.2, RDI 62.8 [...] history of CHB s/p cardiac resynchronization therapy ([employer]) pacemaker, trisomy 21, AV canal repair, ostium [...] evaluate efficacy. -Script renewed with supplies to [employer], maria c for one year. 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 [address] [place] [phone] Lavern Galdamez APRN [address] [place] [address] 02/08/2026 12:30 PM EDT Office Visit [facility] [address] [place] [phone] Emi Orozco PA [address] [place] [address] 02/10/2026 12:20 PM EDT Office Visit [facility] [address] [place] [phone] Hannah Tang MD [address] [place] [address] 03/11/2026 2:40 PM EDT Office Visit [facility] Hilton Castana [address] [place] [phone] Tanja Parsons MD [address] [place] [address] 2026 1:00 PM EDT Appointment Cardiac Imaging [address] [place] [address] 2026 2:40 PM EDT Office Visit [facility] [address] [place] [address] Jordon Tidwell MD [address] [place] [address] Scheduled Orders Name Type Priority Associated Diagnoses [...] documented as of this encounter Care Teams Physical Therapy Teacher Relationship Specialty Start Date End Date Espinoza Thakur MD [address] [place] [address] [address] [place] [address] PCP - General 02/11/21 documented as of this encounter
--- OUTSIDE RECORDS SUMMARY | 2025-09-05 22:09 | XMS_ITS | Encounter Summary ---
Author Organization [facility] Address [address] [place] [address] Care Team Providers Care Lace Stripper Name Role Phone Espinoza Thakur MD Primary Care Provider [phone] Reason for Referral * Consultation (Routine) - Closed Specialty Diagnoses / Procedures Referred By Neema burger Referred To Contact Cardiology Diagnoses Acute diastolic heart failure secondary to hypertrophic obstructive cardiomyopathy Risa Crisostoom MD [address] [place] [address] Phone: tel: fax: Jordon Tidwell MD [address] [place] [address] Phone: tel: fax: Referral ID Status Reason Start Date Expiration Date V isits Requested Visits Authorized [id number] Closed Specialty Services Required 09/08/2025 03/10/2027 1 1 Reason for Visit * Reason Comments Shortness of Breath * Auth/Cert (Routine) Specialty Diagnoses / Procedures Referred By Neema burger Referred To Contact Diagnoses Shortness of breath Jasbir Khalil MD [address] [place] [address] Phone: tel: fax: [facility] [address] [place] [phone] Phone: tel: Referral ID Status Reason Start Date Expiration Date Visits Re quested Visits Authorized [id number] 1 1 Encounter Details Date Type Department Care Team (Latest Contact Info) Description 09/05/2025 10:09 PM EST - 09/08/2025 1:46 PM EST Hospital Encounter [facility] [address] [place] [address] Vitor Hankins MD [address] [place] [address] Jasbir Khalil MD [address] [place] [address] Armando Dickinson MD [address] [place] [address] Risa Crisostomo MD [address] [place] [address] Shortness of breath (Primary Dx); Acute cough; Acute pulmonary edema (CMS/HCC); Acute respiratory failure with hypoxia; Complete heart block, post-surgical; Acute diastolic heart failure secondary to hypertrophic obstructive cardiomyopathy Discharge Disposition: Home or Self Care Social History Tobacco Use Types Packs/Day Years Used Date Smoking Tobacco: Never Passive Smoke Exposure: Never Smokeless Tobacco: Never Alcohol Use Standard Drinks/Week Comments No 0 (1 standard drink = 0.6 oz pure alcohol) Alcoholic Drinks/day: Never Drank Alcohol PHQ-2 Answer Date Recorded Patient Health Questionnaire-2 Score 0 09/10/2025 PHQ-9 Answer Date Recorded Patient Health Questionnaire-9 Score 0 09/10/2025 Humiliation, Afraid, Rape, a nd Kick questionnaire Answer Date Recorded Within the last year, have y ou been afraid of your partner or ex-partner? Patient unable to answer 09/07/2025 Within the last year, have y ou been humiliated or emotionally abused in other ways by your partner or ex-partner? Patient unable to answer 09/07/2025 Within the last year, have y ou been kicked, hit, slapped, or otherwise physically hurt by your partner or ex-partner? Patient unable to answer 09/07/2025 Within the last year, have y ou been raped or forced to have any kind of sexual activity by your partner or ex-partner? Patient unable to answer 09/07/2025 AUDIT-C Answer Date Recorded Q1: How often do you have a drink containing alcohol? Never 09/10/2025 Q2: How many drinks containi ng alcohol do you have on a typical day when you are drinking? Patient does not drink Q3: How often do you have si x or more drinks on one occasion? Never 09/10/2025 Hunger Vital Sign Answer Date Recorded Within the past 12 months, y ou worried that your food would run out before you got the money to buy more. Never true 09/09/20 25 Within the past 12 months, t he food you bought just didn't last and you didn't have money to get more. Never true 09/09/2025 PRAPARE - Transportation Answer Date Re corded In the past 12 months, has l ack of transportation kept you from medical appointments or from getting medications? No 08/31 In the past 12 months, has l ack of transportation kept you from meetings, work, or from getting things needed for daily living? No 09/09/2025 Housing Stability Vital Sign Answer Wallace e Recorded In the last 12 months, was t here a time when you were not able to pay the mortgage or rent on time? No 09/09/2025 In the past 12 months, how m any times have you moved where you were living? 0 09/09/2025 At any time in the past 12 m [facility], were you homeless or living in a alf (including now)? No 09/09/2025 [facility] Utilities Answer Date Recorded In the past 12 months has th e electric, gas, oil, or water company threatened to shut off services in your home? No 09/09/2025 PHQ-2A Answer Date Recorded Depression Risk 0 07/28/2024 Comments No Sex and Gender Information Value Date Recorded Sex Assigned at Not on file Legal Sex Female 8:49 PM EDT Gender Identity Not on file Sexual Orientation Not on file documented as of this encounter Last Filed Vital Signs Vital Sign Reading Time Taken Comments Blood Pressure 102/66 09/08/2025 11:36 AM EST Pulse 74 09/08/2025 11:36 AM EST Temperature 36.3 C (97.3 F) 09/08/2025 11:36 AM EST Respiratory Rate 16 09/08/2025 11:00 AM EST Oxygen Saturation 95% 09/08/2025 11:36 AM EST Inhaled Oxygen Concentration - - Weight 103 kg (226 lb 13.7 oz) 09/08/2025 4:00 A M EST Height 149.9 cm (4' 11 ) 09/06/2025 6:39 AM EST Body Mass Index 45.82 09/06/2025 6:39 AM EST documented in this encounter Functional Status * HEENT Question Answer Date of Assessment Author IMANI (AYSHAL) X 09/08/2025 11:25 AM EST Lian Osborn RN R Eye Mildly impaired vision 09/08/2025 11:25 A M EST Lian Long RN L Eye Mildly impaired vision 09/08/2025 11:25 A M Lian Vo RN * BMI (Calculated) Answer Date of Assessment Author 45.9 09/08/2025 4:00 AM EST Marlene Armendariz * Percent Excess Weight Loss Answer Date of Assessment Author 0 09/06/2025 6:39 AM Pilo Kimbrough RN * Total Weight Change Percent Answer Date of Assessment Author 2222 09/08/2025 4:00 AM EST Marlene Armendariz * Weight Change Since Preop Answer Date of Assessment Author 102.88 09/08/2025 4:00 AM EST Marlene Armendariz * Initial Excess Weight Answer Date of Assessment Author -43.09 09/06/2025 6:39 AM Pilo Kimbrough RN * IBW in lbs (Bariatric) Answer Date of Assessment Author 95 09/06/2025 6:39 AM Pilo Kimbrough RN * Weight Change Since Last Visit Answer Date of Assessment Author 2 09/08/2025 4:00 AM EST Marlene Armendariz * IBW in kg (Bariatric) Answer Date of Assessment Author 43.09 09/06/2025 6:39 AM Pilo Kimbrough RN * Percent of IBW Answer Date of Assessment Author 8,259.71 09/06/2025 6:39 AM Pilo Kimbrough RN * EBW (kg) Answer Date of Assessment Author 3,557.89 09/06/2025 6:39 AM Pilo Kimbrough RN * EBW (lbs) Answer Date of Assessment Author 3,553.17 09/06/2025 6:39 AM Pilo Kimbrough RN * Energy Conservation Techniques Answer Date of Assessment Author asking for necessary assista nce promoted;breathing techniques encouraged;correct body mechanics utilized;correct posture facilitated;equipment and device use facilitated;prioritizing activities promoted;regular rest breaks encouraged;relaxation techniques promoted 09/08/2025 5:31 AM Ashley Macias RN * Progress Answer Date of Assessment Author improving 09/08/2025 7:36 AM Kati Vo RN * Airway Clearance/Ventilation Strategies Answer Date of Assessment Author deep breathing exercises;oxy gen therapy in use 09/08/2025 5:31 AM Ashley Macias RN * Patient/Family-Specific Goals (Include Timeframe) Answer Date of Assessment Author free from falls 09/08/2025 7:36 AM Kati Vo RN * Trust Relationship/Rapport Answer Date of Assessment Author care explained;choices provi ded;emotional support provided;empathic listening provided;questions answered;questions encouraged;reassurance provided;thoughts/feelings acknowledged 09/08/2025 5:31 AM Ashley Macias RN * Infection Prevention Answer Date of Assessment Author environmental surveillance performed;equipment surfaces disinfected;hand hygiene promoted;personal protective equipment utilized;rest/sleep promoted;single patient room provided 09/08/2025 5:31 AM Ashley Macias RN * Outcome Evaluation Answer Date of Assessment Author poc reviewed 09/08/2025 7:36 AM Kati Vo RN * Skin Protection Answer Date of Assessment Author incontinence pads utilized;p rotective footwear used;pulse oximeter probe site changed;silicone foam dressing in place;skin sealant/moisture barrier applied;transparent dressing maintained 09/08/2025 5:31 AM Ashley Macias RN * Individualized Care Needs Answer Date of Assessment Author safety 09/08/2025 7:36 AM Kati Vo RN * Anxieties, Fears or Concerns Answer Date of Assessment Author o2 needs 09/08/2025 7:36 AM Kati Vo RN * Safety Interventions Question Answer Date of Assessment Author Safety Precautions/Falls Reduction assistive device/personal items within reach 09/06/2025 3:37 AM Reji Kimbrough RN All Alarms alarm(s) activated a nd audible 09/06/2025 3:37 AM Reji Kimbrough RN * General Emergency Care CPG Interventions Question Answer Date of Assessment Author Coping Interventions anticipatory fifi guy provided;care explained to patient/family prior to performing 09/06/2025 3:37 AM Reji Kimbrough RN General Care Management calm environment promoted;family presence promoted 09/06/2025 3:37 AM Reji Kimbrough RN * Discharge Needs Assessment Question Answer Date of Assessment Author Discharge Facility/Level of Care Needs 1-Home or Self Care 09/08/2025 11:03 AM Dionne Urrutia RN Equipment Needed After Discharge oxygen 09/08/2025 11:03 AM Dionne Urrutia RN Equipment Currently Used at Home Cpap;oxygen 09/08/2025 11:03 AM Dionne Urrutia RN Current Outpatient/Agency/Support Group [facility] 09/08/2025 11:03 AM Dionne Urrutia RN Anticipated Changes Related to Illness none 09/08/2025 11:03 AM Dionne Urrutia RN Transportation Anticipated family or fri end will provide 09/08/2025 11:03 AM Dionne Urrutia RN Outpatient/Agency/Support Group Needs DME 09/08/2025 11:03 AM Dionne Urrutia RN Transportation Concerns none 09/08/20 11:03 AM Dionne Urrutia RN Concerns to be Addressed no discharge ne eds identified;denies needs/concerns at this time 09/08/2025 11:03 AM Dionne Urrutia RN Readmission Within the Last 30 Days no previous admission in last 30 days 09/08/2025 11:03 AM Dionne Urrutia RN Patient/Family Anticipated Services at Transition outpatient care;durable medical equipment 09/08/2025 11:03 AM Dionne Urrutia RN Patient's Choice of Community Agency(s) Current with [facility] [place] 09/08/2025 11:03 AM Dionne Urrutia RN Patient/Family Anticipates Transition to home with family 09/08/2025 11:03 AM Dionne Urrutia RN Offered/Gave Vendor List no 025 11:03 AM Dionne Urrutia RN Does the patient need discharge transport arranged? No 09/08/2025 11:03 AM Dionne Urrutia RN Has discharge transport been arranged? Yes 09/08/2025 11:03 AM Dionne Urrutia RN What day is the transport expected? [id number] 09/08/2025 11:03 AM Dionne Urrutia RN What time is the transport expected? [id number] 09/08/2025 11:03 AM Dionne Urrutia RN Who is requesting discharge planning? Provider 09/08/2025 11:03 AM Dionne Urrutia RN * Acuity/Destination Question Answer Date of Assessment Author Patient Acuity 2 09/05/2025 9:58 PM Kristi Turcios RN * Weight Change 24 hrs Answer Date of Assessment Author 2 09/08/2025 4:00 AM Marlene Sifuentes * Plan of Care Reviewed With Answer Date of Assessment Author patient;caregiver 09/08/2025 7:36 AM Lian Vo RN * Pressure Injury Prevention (PIP) Interventions Question Answer Date of Assessment Author Pressure Reducing Devices Pillow 09/08/2025 10:0 0 AM Lian Vo RN Preventative Foam Dressing Location Coccyx 09/08/2025 10:00 AM Lian Vo RN Preventative Foam Dressing Intervention Applied 09/08/2025 4:00 AM Ashley Macias RN Preventative Padding for Abatement Worker Respiratory mask 09/08/2025 6:00 AM Ashley Macias RN Bed Type Acute Care Bed 09/08/2025 12:00 PM Lian Barry RN * Behavioral Expectations Question Answer Date of Assessment Author Behavioral Expectations revi ewed with patient/guardian and family/partner in care? Yes 09/07/2025 8:00 PM Ashley Macias RN * Vital Signs Question Answer Date of Assessment Author BP 102/66 09/08/2025 11:36 AM Randal Hoffman Flowsheet In Temp 97.3 09/08/2025 11:36 AM Randal Hoffman Flowsheet In Pulse 74 09/08/2025 11:36 AM Randal Hoffman Flowsheet In Heart Rate Source Monitor 09/07/2025 1:00 AM Nargis Cyr CNA BP Location Right arm 09/07/2025 4:50 AM Lavern Sanchez BP Method Automatic 09/07/2025 4:50 AM Lavern Sanchez MAP (mmHg) 78 09/08/2025 11:36 AM Randal Hoffman Flowsheet In Patient Position Lying 09/07/2025 4:50 AM MARGIE Charles [email or web address] Arora * Oxygen Therapy Question Answer Date of Assessment Author SpO2 95 09/08/2025 11:36 AM Randal Marroquin Flowsheet In O2 Flow Rate (L/min) 1 09/08/2025 10:00 AM Lian Vo RN Oximetry Probe Site Changed No 09/06/2025 6:13 PM Aristides Waters Pulse Oximetry Type Continuous 09/07/2025 1:00 AM Nargis Bucio CNA Patient Activity During SpO2 Measurement At rest 09/07/2025 1:00 AM Nargis Cyr CNA Oxygen Therapy Supplemental oxygen 09/08/2025 1 0:00 AM Lian Vo RN O2 Delivery Method Nasal cannula 09/08/2025 10 :00 AM Lian Vo RN Oximetry Probe Site Location Right Digit 09/06/2025 6:13 PM Aristides Waters * Vitals Question Answer Date of Assessment Author Resp 16 09/08/2025 11:00 AM Lian Church RN * Neurological Question Answer Date of Assessment Author Level of Consciousness Alert 09/08/2025 11:25 A M Lian Vo RN Orientation Level Oriented X4 09/08/2025 11:25 AM Lian Vo RN * Cardiac Question Answer Date of Assessment Author Cardiac Rhythm V-Paced 09/08/2025 11:25 AM Lian Barry RN Heart Sounds S1, S2 09/08/2025 11:25 AM Lian Church RN Jugular Venous Distention (JVD) No 11:25 AM Lian Vo RN * Planting Supervisor Question Answer Date of Assessment Author Bedside Planting Supervisor On Yes 09/08/2025 11: 25 AM Lian Vo RN Bedside Cardiac Audible Yes 09/08/2025 11:25 AM Lian Vo RN Bedside Cardiac Alarms Set Yes 09/08/2025 11: 25 AM Lian Vo RN * Pacemaker Question Answer Date of Assessment Author Pacemaker Type Permanent 09/08/2025 11:25 AM EST Lian Flowers RN * Gastrointestinal Question Answer Date of Assessment Author Abdominal Tenderness Soft 09/08/2025 11:25 AM Lian Vo RN Bowel Sounds (All Quadrants) Active 06/2025 11:25 AM Lian Vo RN Gastrointestinal (WDL) WDL 11:25 AM Lian Vo RN Abdomen Inspection Soft;Nondistended 09/08/2025 11:25 AM Lian Vo RN * Peripheral Vascular Question Answer Date of Assessment Author Peripheral Vascular (WDL) X 09/08/2025 11:25 AM Lian Vo RN Generalized Edema Non-pitting 09/08/2025 11: 25 AM Lian Vo RN Capillary Refill Less than/equal to 2 seconds (All extremities) 09/08/2025 11:25 AM Lian Vo RN Pulses R radial;L radial;R pedal;L pedal 09/08/2025 4:00 AM Ashley Macias RN Edema Generalized 09/08/2025 11:25 AM Lian Vo RN * RUE Neurovascular Assessment Question Answer Date of Assessment Author R Radial Pulse +2 09/08/2025 11:25 AM Lian Barry RN * LUE Neurovascular Assessment Question Answer Date of Assessment Author L Radial Pulse +2 09/08/2025 11:25 AM Lian Barry RN * RLE Neurovascular Assessment Question Answer Date of Assessment Author R Pedal Pulse +2 09/08/2025 11:[address], Lian, RN * LLE Neurovascular Assessment Question Answer Date of Assessment Author L Pedal Pulse +2 09/08/2025 11:25 AM Lian Cox RN * Musculoskeletal Question Answer Date of Assessment Author Musculoskeletal (WDL) WDL 09/08/2025 11:25 AM Lian Vo RN * Urine Assessment Question Answer Date of Assessment Author Urine Color Yellow/straw 09/08/2025 11:25 AM Lian Church RN Urine Appearance Clear 09/08/2025 4:00 AM Ashley Barron RN Urine Odor No odor 09/08/2025 4:00 AM Ashley Macias RN Urinary Incontinence No 09/08/2025 11:25 AM Lian Vo RN * Psychosocial Question Answer Date of Assessment Author Psychosocial (WDCheryl) [facility] 09/08/2025 11:25 AM Lian Gandara RN Length of Time/Family Visitation Rooming in 09/08/2025 4:00 AM Ashley Macias RN * Intake Question Answer Date of Assessment Author [address] 09/08/2025 5:00 AM Ashley Macias RN Percent Meals Eaten (%) 100 09/06/2025 6:07 P M Earl Brand RN * Output (mL) Question Answer Date of Assessment Author Urine Amount Small 09/07/2025 7:45 AM Meghan Seth CNA * Denny Fall Risk Question Answer Date of Assessment Author History of Falling, Immediat e or Within 3 Months 0 09/08/2025 8:00 AM Lian Vo RN Secondary Diagnosis 15 09/08/2025 8:00 AM Lian Gandara RN Ambulatory Aid 0 09/08/2025 8:00 AM Lian Cox RN Intravenous Therapy/Heparin Lock 20 09/08/20 25 8:00 AM Lian Vo RN Gait/Transferring 0 09/08/2025 8:00 AM Lian Vo RN Mental Status 0 09/08/2025 8:00 AM Lian Church RN Morse Fall Risk Score 35 09/08/2025 8:00 AM Lian Vo RN * Alirio Scale Question Answer Date of Assessment Author Sensory Perceptions 4 09/08/2025 4:00 AM Ashley Busch RN Moisture 4 09/08/2025 4:00 AM Ashley Macias RN Activity 4 09/08/2025 4:00 AM Ashley Macias RN Mobility 3 09/08/2025 4:00 AM Ashley Macias RN Nutrition 3 09/08/2025 4:00 AM Ashley Macias RN Friction and Shear 3 09/08/2025 4:00 AM Ashley Macias RN Alirio Scale Score 21 09/08/2025 4:00 AM Ashley Macias RN * BSA (Calculated - sq m) Answer Date of Assessment Author 2.07 09/08/2025 4:00 AM Marlene Sifuentes * BMI (Calculated) Answer Date of Assessment Author 45.79 09/08/2025 4:00 AM Marlene Sifuentes * Cardiac Question Answer Date of Assessment Author Cardiac (WDL) X 09/08/2025 4:00 AM Ashley Macias RN Pacemaker Yes 09/08/2025 4:00 AM Ashley Macias RN Cardiac Regularity Regular 09/08/2025 4:00 AM Ashley Macias RN * Respiratory Question Answer Date of Assessment Author Bilateral Breath Sounds Diminished 09/08/2025 11:25 AM Lian Vo RN Respiratory Pattern Regular 09/08/2025 11:25 AM E Lian Casillas RN Chest Assessment Symmetrical 09/08/2025 11:25 AM Lian Vo RN Respiratory (WDL) X 09/08/2025 11:25 AM Lian Vo RN Respiratory Effort Unlabored 09/08/2025 7:29 AM Lian Vo RN Respiratory Depth/Rhythm Regular 09/08/2025 4:00 AM Ashley Macias RN Dyspnea Occurrence With exertion 09/08/2025 7:29 AM Lian Gandara RN * Vitals Question Answer Date of Assessment Author Temp src Axillary 09/08/2025 4:00 AM Marcie Sifuentes Weight 3629.65 09/08/2025 4:00 AM Moni Sifuentese Weight Method Standing scale 09/08/2025 4:00 AM EST Marcie Alonzo * Point of Care Tests Question Answer Date of Assessment Author Provider Role Hospitalist 09/07/2025 8:31 PM Ashley Macias RN Provider Name Clarke Dueñas MD 09/07/2025 8:31 PM Ashley Macias RN Method of Communication Secure message 09/07/2025 8:31 PM Ashley Macias RN Reason for Communication Abnormal vitals 09/07/2025 8: 31 PM Ashley Macias RN Response Other (Comment) 09/07/2025 8:31 PM Ashley Eric RN * Patient Information Question Answer Date of Assessment Author Primary Caregiver Family 09/07/2025 2:24 PM Dionne Urrutia RN Accompanied by/Relationship mother 09/07/2025 2:24 PM Dionne Urrutia R N Support System Immediate family 09/07/2025 2:24 PM Dionne Urrutia RN Patient's Education Level High school 09/07/2025 2:24 PM Dionne Urrutia RN * Activities of Daily Living Question Answer Date of Assessment Author Functional Status Moderate assistance 09/07/2025 2:24 PM Dionne Urrutia RN Living Arrangements Parent/Gaurdian 09/07/2025 2:24 PM Dionne Urrutia RN Type of Residence Private residence;Single Level 09/07/2025 2:24 PM Dionne Urrutia RN Smoker in the Home? No 09/07/2025 2:24 PM Dionne Barrera RN * Income Information Question Answer Date of Assessment Author Income Source Disabled 09/07/2025 2:24 PM Dionne Acosta RN Income/Expense Information Income meets expenses 09/07/2025 2:24 PM Dionne Urrutia RN Current Resources Utilized None 09/07/2025 2:24 PM Dionne Urrutia R N * Advance Directives (For Healthcare) Question Answer Date of Assessment Author Advance Directive Patient would not li ke information 09/07/2025 8:35 PM Ashley Macias RN Pre-existing DNR/DNI Order No 09/07/2025 8:35 PM Ashley Macias RN Information Provided on Healthcare Directives No 09/07/2025 8:35 PM Ashley Macias R N Patient Requests Assistance No 09/07/2025 8:35 PM Ashley Macias RN Have you reviewed your Advance Directive and is it valid for this stay? No 09/06/2025 12:00 PM Earl Brand RN * Nutrition Screen Question Answer Date of Assessment Author Difficulty Chewing or Swallowing No 09/07/2025 8:37 PM Ashley Macias RN Burn, Pressure Injury, or Non-Healing Wound No 09/07/2025 8:37 PM Ashley Macias RN Home Tube Feeding or Total Parenteral Nutrition (TPN) No 09/07/2025 8:37 PM Renny Macias RN Food allergy, Anabaptist, or Cultural nutrition needs Yes (Comment) 09/07/2025 8:37 PM Ashley Macias RN * Trauma/Abuse Assessment Question Answer Date of Assessment Author Physical Abuse Denies 09/07/2025 8:36 PM Ashley Lynn RN Verbal Abuse Denies 09/07/2025 8:36 PM Ashley Macias RN * Values/Beliefs Question Answer Date of Assessment Author Cultural Requests During Hospitalization na 09/07/2025 8:00 PM Ashley Macias RN Spiritual Requests During Hospitalization na 09/07/2025 8:00 PM Ashley Macias RN Unable to assess No 09/07/2025 8:00 PM Ashley Barron RN * Genitourinary Question Answer Date of Assessment Author Genitourinary (WDL) WDCheryl 09/08/2025 11:25 AM Lian Garcia RN * Neurological Question Answer Date of Assessment Author Neuro (PERCY) PERCY 09/08/2025 4:00 AM Ashley Macias RN * Height and Weight Question Answer Date of Assessment Author Height 59 09/06/2025 6:39 AM Reji Jones RN Height Method Stated 09/06/2025 6:39 AM Reji Madrigal RN * Safe Environment Question Answer Date of Assessment Author 37-Pin Connection [Bed and Wall] Yes 12/09/20 25 10:00 AM Lian Vo RN Arm Bands On ID 09/08/2025 12:00 PM Lian Church RN Side Rails/Bed Safety 2/4 09/08/2025 10:00 AM Lian Vo RN NonSkid Footwear On 09/08/2025 10:00 AM Lian Vo RN The Patient's Environment is Safe Yes 025 10:00 AM Lian Vo RN Bed Foot Left Rail Up State No 09/08/2025 8: 00 AM Lian Vo RN Bed Head Right Rail Up State Yes 09/08/2025 8 :00 AM Lian Vo RN Bed Head Left Rail Up State Yes 09/08/2025 8: 00 AM Lian Vo RN Bed Foot Right Rail Up State No 09/08/2025 8 :00 AM Lian Vo RN Bed Exit System Activate Status No 8:00 AM Lian Vo RN Bed Brake State Yes 09/08/2025 8:00 AM Lian Barry RN Bed Low Height State Yes 09/08/2025 8:00 AM Lian Garcia RN Chair Exit System Activate Status No 025 6:00 AM Ashley Macias RN * Fall Risk Interventions Question Answer Date of Assessment Author Safety Promotion/Fall Prevention activity supervised;assistive device/personal items within reach;clutter-free environment maintained;fall prevention program maintained;nonskid shoes/slippers when out of bed;room organization consistent;safety round/check completed;other (see comments);lighting adjusted;mobility aid in reach 09/08/2025 10:00 AM Lian Vo RN Enhanced Safety Measures bed alarm set 09/08/2025 10:00 AM Lian Vo RN Toilet Every 2 Hours-In Advance of Need Yes 09/08/2025 10:00 AM Lian oV RN Hourly Visual Checks Awake;In bed 09/08/2025 10:00 AM Lian Vo RN Room Door Open Deferred to decrease stimulation 09/08/2025 10:00 AM Lian Vo RN Gait Belt Used For Transfers Not applicable 09/08/2025 6:00 AM Ashley Macias RN Fall Bundle Components Call light within reach;Personal belongings within reach;Overbed table within reach;Bed wheels locked;Non-skid footwear on if up in chair or ambulating;Staff to remain with patient during toileting;Bed in lowest position 09/08/2025 10:00 AM Lian Vo RN * Mobility Question Answer Date of Assessment Author Range of Motion active ROM (range of motion) encouraged 09/08/2025 6:00 AM Ashley Macias RN Activity Management activity encouraged; up ad cristobal 09/08/2025 10:00 AM Lian Vo RN Activity Assistance Provided assistance, stand-by 09/08/2025 10:00 AM Lian Vo RN Body Position weight shifting 09/08/2025 10:00 AM Lian Vo RN VTE Prevention/Management bilateral;SCDs (sequential compression devices) off 09/08/2025 10:00 AM Lian Vo RN Head of Bed (HOB) Positioning HOB elevated 09/08/2025 6:00 AM Ashley Macias RN Repositioned Pillow support;Turns self 09/08/2025 10:00 AM Lian Vo RN Head of Bed Elevated Self regulated 09/08/2025 6:00 AM Ashley Macias RN Heels/Feet Heels elevated off bed 10:00 AM Lian Vo RN Reason for Removing Anti-Embolism Device Ambulating 09/08/2025 6:00 AM Ashley Macias RN Positioning Frequency Able to turn self 09/08/20 12:00 PM Lian Vo RN Early Mobility/Exercise Safety Screen Proceed with mobilization - No exclusion criteria met 09/08/2025 10:00 AM Lian Vo RN Documentation of an Acceptable Level of Exercise/Mobilization Performed Walk in room 09/08/2025 10:00 AM Lian Vo RN * Hygiene Question Answer Date of Assessment Author Perineal Care perineum cleansed 09/07/2025 8:00 PM Ashley Macias RN Bathing/Skin Care shampoo;dressed/undr essed ;back care;foot care 09/07/2025 10:00 PM Marcie Sifuentes Oral Care tongue brushed 09/07/2025 8:00 PM Ashley Lynn RN Oral Care (Yes/No) Yes 09/07/2025 8:00 PM Ashley Macias RN * Precautions Question Answer Date of Assessment Author Isolation Precautions precautions maintained;protective 09/08/2025 10:00 AM Lian Vo RN Precautions Environmental surveillance 09/08/2025 12:00 PM Lian Vo RN * Family/Significant Other Communication Question Answer Date of Assessment Author Family/Significant Other Update Visiting 8:00 PM Ashley Macias RN * Telemetry Details Question Answer Date of Assessment Author Clerical Investigator On No 09/08/2025 12:00 PM Lian Vo RN * Comfort and Environment Interventions Question Answer Date of Assessment Author Comfort Repositioned 09/08/2025 6:00 AM Ashley Macias RN * Safety Equipment at Bedside Question Answer Date of Assessment Author Standard Bedside Safety Ambu bags in hallway;Oxygen available and working 09/08/2025 10:00 AM Lian Vo RN Additional Bedside Safety Bed in locked and low position;Clutter free environment 09/08/2025 10:00 AM Lian Vo RN * IBW/kg (Calculated) Male Answer Date of Assessment Author 47.7 09/06/2025 6:39 AM Pilo Kimbrough RN * IBW/kg (Calculated) Female Answer Date of Assessment Author 43.2 09/06/2025 6:39 AM Pilo Kimbrough RN * Consults Question Answer Date of Assessment Author Integrative Medicine Consult Needed No 09/07 8:35 PM Ashley Macias RN Pastoral Care Consult Needed No 09/07/2025 8 :35 PM Ashley Macias RN Social Services Consult Needed No 09/07/2025 8:35 PM Ashley Macias RN * Therapy Consults Question Answer Date of Assessment Author PT Evaluation Needed 2 09/07/2025 8:35 PM Ashley Grande RN OT Evaluation Needed 2 09/07/2025 8:35 PM Ashley Grande RN EQUIPMENT WASHER Evaluation Needed 2 09/07/2025 8:35 PM Ashley Macias RN * Assistive Devices Question Answer Date of Assessment Author Assistive Devices CPAP;Eyeglasses;Oxygen 09/07/2025 8: 32 PM Ashley Macias RN * PAINAD (Pain Assessment in Advanced Dementia) Question Answer Date of Assessment Author Pain Management Interventions pain management plan reviewed with patient/caregiver 09/07/2025 8:20 PM Ashley Macias RN * Provider Notification Question Answer Date of Assessment Author Notification Time [id number] 09/07/2025 8:31 PM Ashley Macias RN * Hourly Rounding Question Answer Date of Assessment Author Hourly Rounding Complete Per Guideline Yes 09/08/2025 1:00 PM Lian Vo RN * Patient Violence Risk Assessment Question Answer Date of Assessment Author History of Violence: In the past 12 hours has the PATIENT exhibited any of the following? None 09/07/2025 8:00 PM Ashley Macias RN Potential for Violence: In the past 12 hours has the PATIENT exhibited any of the following? None 09/07/2025 8:00 PM Ashley Macias RN Risk No identified risk 09/07/2025 8:00 PM Ashley Macias RN History of Violence: In the past 12 hours has a PARTNER IN CARE of the patient exhibited any of the following? None 09/07/2025 8:00 PM Ashley Macias RN * Mobility Question Answer Date of Assessment Author Ambulation Independent 09/08/2025 4:00 AM Ashley Macias RN * Airway Question Answer Date of Assessment Author Airway Patency Patent 09/07/2025 3:02 PM Darlene Montejo RN Airway (WDL) WDL 09/07/2025 3:02 PM Darlene Brooke RN * Breathing Question Answer Date of Assessment Author R Breath Sounds Diminished 09/07/2025 3:02 PM EST Darlene Ford RN L Breath Sounds Diminished 09/07/2025 3:02 PM EST Darlene Ford RN Breathing ([facility]) WD 09/07/2025 7:20 AM EST Darlene Ford RN * Circulation Question Answer Date of Assessment Author Circulation ([facility]) WD 09/07/2025 7:20 AM EST Darlene Pizarro RN * Disability Question Answer Date of Assessment Author L Pupil Reaction Brisk 09/07/2025 3:02 PM EST Darlene Lucero RN L Pupil Size (mm) 3 09/07/2025 3:02 PM EST Darlene Pizarro RN R Pupil Reaction Brisk 09/07/2025 3:02 PM EST Darlene Lucero RN R Pupil Size (mm) 3 09/07/2025 3:02 PM EST Darlene Pizarro RN Disability ([facility]) WD 09/07/2025 3:02 PM EST Darlene Lucero RN * Restart Vitals Timer Answer Date of Assessment Author Yes 09/08/2025 4:00 AM EST Marlene Armendariz * IBW/kg (Calculated) Answer Date of Assessment Author 43.2 09/06/2025 6:39 AM EST Pilo Simons RN * STOP-Bang Questionnaire Question Answer Date of Assessment Author Do you snore loudly? 1 09/07/2025 8:00 PM Ashley Grande RN Do you often feel tired or f atigued after your sleep? 0 09/07/2025 8:00 PM Ashley Macias RN Has anyone ever observed you stop breathing in your sleep? 1 09/07/2025 8:00 PM Ashley Macias RN Do you have or are you being treated for high blood pressure? 0 09/07/2025 8:00 PM Ashley Macias RN Is BMI greater than 35 kg/m2? 1=Yes 09/07/2025 8:00 PM Ashley Macias RN Age older than 50 years old? 0=No 09/07/2025 8 :00 PM Ashley Macias RN Is your neck circumference g reater than 17 inches (Male) or 16 inches (Female)? 1 09/07/2025 8:00 PM Ashley Macias RN Gender - Male 0=No 09/07/2025 8:00 PM Ashley Macias RN STOP-Bang Total Score 4 09/07/2025 8:00 PM Ashley Macias RN Recent BMI (Calculated) 44.9 09/07/2025 8:00 P M Ashley Macias RN * Pneumococcal Vaccine Screen - Year Round Question Answer Date of Assessment Author Have you ever had a pneumoni a vaccination? Yes 09/06/2025 12:00 PM Earl Brand RN * Influenza Vaccine Screen - July Through January Question Answer Date of Assessment Author Have you had an influenza va ccine this season? Yes 09/06/2025 12:00 PM Earl Brand RN * Calculated C-SSRS Risk Score (Lifetime/Recent) Answer Date of Assessment Author No Risk Indicated 09/07/2025 8:00 PM Wil Macias RN * Drake Coma Scale Question Answer Date of Assessment Author Best Eye Response Spontaneous 09/08/2025 11:25 AM Lian Vo RN Best Verbal Response Oriented 09/08/2025 11:25 AM Lian Vo RN Best Motor Response Follows commands 09/08/2025 11:25 AM Lian Vo RN Drake Coma Scale Score 15 09/08/2025 11:25 AM Lian Vo RN * Seizure Question Answer Date of Assessment Author Seizure No 09/06/2025 8:00 AM Earl Brand RN * Learning Assessment Question Answer Date of Assessment Author Education Level Special education 09/06/2025 3:3 7 AM Reji Kimbrough RN Factors that Impact Ability to Learn Cognitive limitations 09/06/2025 3:37 AM Reji Kimbrough RN Cultural Considerations None 09/06/20 25 3:37 AM Reji Kimbrough RN Anabaptist Considerations None 025 3:37 AM Reji Kimbrough RN * Abuse Screen Question Answer Date of Assessment Author Are you or have you been thr eatened or abused physically, emotionally, or sexually by a partner, spouse, or family member? No 09/06/2025 3:37 AM Reji Kimbrough RN * KINDER 1 Fall Risk Factor Assessment Question Answer Date of Assessment Author Presented to ED because of fall 0 7:43 AM Earl Brand RN Age > 70 0 09/06/2025 7:43 AM Earl Brand, RN Intoxicated with alcohol or substance confusion 0 09/06/2025 7:43 AM Earl Brand, RN Ambulates or transfers with assistive devices or assist 0 09/06/2025 7:43 AM Sylvia Brand RN Unable to ambulate or transfer 0 09/06/2025 7:43 AM Earl Brand RN Nursing judgement 0 09/06/2025 7:43 AM Earl Brand, RN KINDER 1 Fall Risk Score 0 09/06/2025 7:43 AM Earl Brand RN * Neurological Question Answer Date of Assessment Author Right Tympanic Membrane Clear 09/05/2025 9:56 P M Kristi James RN Left Tympanic Membrane Clear 09/05/2025 9:56 PM Kristi James RN * Kathleen Suicide Severity Rating Scale Question Answer Date of Assessment Author Is patient awake, alert, and able to answer questions appropriately? No 09/07/2025 7:20 AM Darlene Alba RN * Boarding Screenings Question Answer Date of Assessment Author Have you done screenings in triage or boarder navigator? Yes 09/06/2025 12:00 PM Earl Brand, LEIGHA * Patient Belongings Placed in Locker Question Answer Date of Assessment Author Clothing Pants;Socks;Underpan ts;Sh irt;Bra;Footwear 09/06/2025 3:38 AM Reji Kimbrough RN Belongings at Bedside Clothing;Retained by patient and/or family/legal hotel services sales representative who assumes responsibility 09/06/2025 3:38 AM Reji Kimbrough RN * Weight in (lb) to have BMI = 25 Answer Date of Assessment Author 123.5 09/06/2025 6:39 AM Pilo Kimbrough RN * BMI (Calculated) Answer Date of Assessment Author 45.9 09/08/2025 4:00 AM Marlene Sifuentes * Percent Excess Weight Loss Answer Date of Assessment Author 0 09/06/2025 6:39 AM Pilo Kimbrough RN * Weight Change Since Preop Answer Date of Assessment Author 102.9 09/08/2025 4:00 AM Marlene Sifuentes * Initial Excess Weight Answer Date of Assessment Author -43.09 09/06/2025 6:39 AM Pilo Kimbrough RN * IBW in kg (Bariatric) Answer Date of Assessment Author 43.09 09/06/2025 6:39 AM Pilo Kimbrough RN * IBW in lb (Bariatric) Answer Date of Assessment Author 95 09/06/2025 6:39 AM Pilo Kimbrough RN * Weight Change Since Last Visit Answer Date of Assessment Author 2 09/08/2025 4:00 AM Marlene Sifuentes * Percent of IBW Answer Date of Assessment Author 234.15 09/06/2025 6:39 AM Pilo Kimbrough RN * EBW (kg) Answer Date of Assessment Author 57.79 09/06/2025 6:39 AM Pilo Kimbruogh RN * EBW (lb) Answer Date of Assessment Author 127.44 09/06/2025 6:39 AM Pilo Kimbrough RN * Difference in Weight Since Last Visit Answer Date of Assessment Author 2 09/08/2025 4:00 AM Marlene Sifuentes * Housing Circumstances-Z Codes Question Answer Date of Assessment Author Housing Circumstances (select all that apply) None Applicable 09/07/2025 2:24 PM EST Dionne Spear RN * Temp (in Celsius) for [id number] IV Answer Date of Assessment Author 36.3 09/08/2025 11:36 AM EST Interfvanesa e, Doc Flowsheet In * Pain Assessment Question Answer Date of Assessment Author Pain Location Abdomen;Back 09/07/2025 12:34 PM EST Darlene Peacock RN Patient's Stated Pain Goal 2 09/07/2025 8:20 PM EST Ashley Connolly RN Clinical Progression Not changed 09/07/2025 12:34 PM EST Darlene Pizarro RN Pain Score 0 09/08/2025 7:00 AM EST Lian Fan RN Pain Assessment 0-10 (Adult DVPRS/Peds 0-10) 09/08/2025 7:00 AM Lian Vo RN * Nutrition Question Answer Date of Assessment Author Fluid Restrictions 1800 09/07/2025 8:00 PM Ashley Macias RN Diet Type 1800 mL Fluid Restriction;Regular;Ca rdiac;2 gram sodium diet 09/08/2025 12:00 PM Lian Vo RN Feeding Able to feed self 09/08/2025 12:00 PM Lian Vo RN Appetite Good 09/07/2025 8:00 PM Ashley Macias RN * IBW/kg (Calculated) Answer Date of Assessment Author 43.2 09/06/2025 6:39 AM Pilo Kimbrough RN * Adult Low Range Vt 6mL/kg Answer Date of Assessment Author 259.2 09/06/2025 6:39 AM Pilo Kimbrough RN * Adult Moderate Range Vt 8mL/kg Answer Date of Assessment Author 345.6 09/06/2025 6:39 AM Pilo Kimbrough RN * Adult High Range Vt 10mL/kg Answer Date of Assessment Author 432 09/06/2025 6:39 AM Pilo Kimbrough RN * Respiratory Interventions Question Answer Date of Assessment Author Respiratory Interventions Cough and deep breathing 09/08/2025 7:29 AM Lian Vo RN * Cough and Deep Breathe Question Answer Date of Assessment Author Cough And Deep Breathing done independently per patient 09/08/2025 7:29 AM Lian Vo RN * Patient Belongings Sent to Safe/Security Question Answer Date of Assessment Author Belongings Sent to Safe/Security None 09/06/20 3:38 AM Reji Kimbrough RN * Integumentary Question Answer Date of Assessment Author Skin Color Appropriate for ethnicity 09/08/2025 11:25 AM Lian Vo RN Skin Condition/Temp Warm 09/08/2025 1 1:25 AM Lian Vo RN Skin Integrity Abrasion 09/08/2025 11:25 AM Lian Vo RN Skin Turgor Tenting 09/08/2025 11:25 AM Lian Vo RN 4 Eyes Skin Assessment Completed Yes 09/07/2025 8:00 PM Ashley aMcias RN Manual Dual Sign Off 2nd LEIGHA Hercules RN 09/07/2025 8:00 PM Ashley Macias RN Integumentary (WDL) X 09/08/2025 1 1:25 AM Lian Vo RN * Patient Belongings Sent Home Question Answer Date of Assessment Author Belongings Sent Home Clothing 09/08/2025 11:35 AM Lian Vo RN Clothing Sweater;Shirt;Pants 09/08/2025 11:[address] Lian Long RN * Skin Assessment Question Answer Date of Assessment Author Scale Used Alirio 09/06/2025 12:00 PM Earl Evans RN * Confusion Assessment Method (CAM) Question Answer Date of Assessment Author Acute Onset and Fluctuating Course (1A) No 09/08/2025 4:00 AM Ashley Macias RN * Feature 3: Altered Level of Consciousness Answer Date of Assessment Author Negative 09/08/2025 4:00 AM Sundeep Macias RN * Sedation Scales Question Answer Date of Assessment Author Sedation Scale Used Khan Agitation Sedation Scale 09/08/2025 4:00 AM Ashley Macias RN RASS 0 09/08/2025 4:00 AM Ashley Macias RN * Urine Output/Assessment Question Answer Date of Assessment Author Urine 200 09/07/2025 9:00 PM Ashley Macias RN Unmeasured Urine Occurrence 1 09/06/2025 9: 00 AM Earl Brand RN * Fall Risk Calculated Score Answer Date of Assessment Author Denny Low 09/08/2025 8:00 AM Kati Vo RN * Delirium Assessment Question Answer Date of Assessment Author Delirium Scale Used Confusion Assessment Method 09/08/2025 4:00 AM Ashley Macias RN * Unplanned Readmission Scores Question Answer Date of Assessment Author Unplanned Readmission Score 11.94 09/08/2025 12 :01 PM Bean Bravo * Malnutrition Screening Tool (MST) Question Answer Date of Assessment Author Have you recently lost weigh t without trying? 0 09/06/2025 12:00 PM Earl Brand RN Have you been eating poorly because of a decreased appetite? 0 09/06/2025 12:00 PM EST Earl James RN * Weight Loss Score Answer Date of Assessment Author 0 09/06/2025 12:00 PM EST Donnie Saba RN * Malnutrition Score Answer Date of Assessment Author 0 09/06/2025 12:00 PM Donnie Brand RN * Drake Coma Scale Numeric Answer Date of Assessment Author 15 09/08/2025 11:25 AM Lian Vo RN * Elevate heels task - custom formula Answer Date of Assessment Author 1 09/08/2025 10:00 AM Lian oV RN * Neurological Question Answer Date of Assessment Author Neuro Pertinent Negatives Alert and oriented x 4;Speech clear 09/07/2025 4:15 AM Brianna Sanz RN Neuro ([facility]) WD 09/07/2025 4:15 AM Brianna Sanz RN * Gastrointestinal Question Answer Date of Assessment Author Gastrointestinal Pertinent Negatives Bowel sounds x 4;Soft/nontender/non distended;Denies complaints 09/07/2025 4:15 AM Brianna Sanz RN Gastrointestinal ([facility]) WD 4:15 AM Brianna Sanz RN * Cardiac Question Answer Date of Assessment Author Chest Pain Present No 09/07/2025 4:14 AM Brianna Sanz RN Cardiac Pertinent Negatives Heart rate regular;S1 S2 09/06/2025 8:00 AM Earl Brand RN Cardiac ([facility]) X 09/07/2025 4:14 AM EST Brianna Bell RN * Genitourinary Question Answer Date of Assessment Author Genitourinary Pertinent Negatives Continent;Denies complaints 09/07/2025 4:15 AM Brianna Sanz RN Genitourinary ([facility]) WDL 09/07/2025 4 :15 AM Brianna Sanz RN * Respiratory Question Answer Date of Assessment Author Ability to Speak Speaking in full sentences 09/07/2025 4:14 AM Brianna Sanz RN Respiratory Pertinent Negatives Respirations regular/unlabored;No cough 09/06/2025 8:00 AM Earl Brand RN Respiratory Additional Assessments No 09/07/2025 4:14 AM Brianna Sanz RN Respiratory (WDL) X 09/07/2025 4:1 4 AM Brianna Sanz RN * Cough Question Answer Date of Assessment Author Cough Present No 09/06/2025 7:00 PM Brianna Irvin RN * Vitals Timer Question Answer Date of Assessment Author Update Vitals Alert Interval 240 09/07/2025 1 :00 AM EST Nargis Lehman CNA Restart Vitals Timer Yes 09/08/2025 4:00 AM E Marcie Gottlieb Restart Vitals Timer Yes 09/07/2025 5:00 PM E Meghan Blank CNA * Hourly Rounding Question Answer Date of Assessment Author Activity Assistance One person assist 09/07/2025 6:09 PM Darlene Alba RN Toileting Offered and refused 09/07/2025 6:09 PM Darlene Gil RN Call Light Call light present a nd within reach;Oriented to call light 09/07/2025 6:09 PM Darlene Alba RN Rest/ Sleep Resting 09/07/2025 6:09 PM Darlene Brooke RN Rest/ Sleep Enhancement Care clustered t o minimize awakenings 09/07/2025 6:09 PM Darlene Alba RN Completed Hourly Rounding Yes 09/07/2025 6:09 PM Darlene Alba RN Plan of Care Reviewed With Patient;Family 09/07/2025 6:09 PM Darlene Alba RN * Elopement Risk Screen Question Answer Date of Assessment Author Does the patient exhibit any of the following behaviors? No 09/08/2025 4:00 AM Ashley Macias RN Does the patient have a cour t ordered legal guardian? Yes 09/08/2025 4:00 AM Ashley Macias RN * C-SSRS (Frequent Screener) Question Answer Date of Assessment Author Is patient awake, alert, and able/willing to answer questions appropriately? Yes 09/07/2025 8:00 PM Ashley Macias RN 1. Wish to be (Past 1 Month) No 12/08/2 025 8:00 PM Ashley Macias RN 2. Non-Specific Active Suici jon Thoughts (Past 1 Month) No 09/07/2025 8:00 PM Ashley Macias RN 6. Suicidal Behavior (Lifetime) No 8:00 PM Ashley Macias RN * Discharge Planning Continued Question Answer Date of Assessment Author Transportation Home at Discharge Family/Friend will Provide 09/08/2025 11:03 AM Dionne Urrutia RN * [facility] 6-Clicks Mobility Assessment Question Answer Date of Assessment Author Difficulty patient has turni ng over in bed (including adjusting bedclothes, sheets, and blankets)? 4 09/06/2025 12:00 PM Earl Griggs RN Difficulty patient has sitti ng down on and standing up from a chair with arms (wheelchair, bedside commode, etc.)? 4 09/06/2025 12:00 PM Leonor Brand RN Difficulty patient has movin g from lying on back to sitting on the side of the bed? 4 09/06/2025 12:00 PM Earl Brand RN How much help does the patie nt need moving to and from a bed to a chair (including a wheelchair)? 3 09/06/2025 12:00 PM Earl Evans RN How much help does the patie nt need to walk in hospital room? 4 09/06/2025 12:00 PM Earl Brand RN How much help does the patie nt need climbing 3-5 steps with a railing? 3 09/06/2025 12:00 PM Earl Brand RN [facility] 6-Clicks Mobility Asse ssment Total 22 09/06/2025 12:00 PM Earl Brand RN * HEENT Question Answer Date of Assessment Author HEMITCHELL (WDL) X 09/08/2025 11:25 AM Lian Church RN R Eye Mildly impaired vision 09/08/2025 11:25 A M Lian Vo RN L Eye Mildly impaired vision 09/08/2025 11:25 A M Lian Vo RN * Energy Conservation Techniques Answer Date of Assessment Author asking for necessary assista nce promoted;breathing techniques encouraged;correct body mechanics utilized;correct posture facilitated;equipment and device use facilitated;prioritizing activities promoted;regular rest breaks encouraged;relaxation techniques promoted 09/08/2025 5:31 AM Ashley Macias RN * Airway Clearance/Ventilation Strategies Answer Date of Assessment Author deep breathing exercises;oxy gen therapy in use 09/08/2025 5:31 AM Ashley Macias RN * Patient/Family-Specific Goals (Include Timeframe) Answer Date of Assessment Author free from falls 09/08/2025 7:36 AM Kati Vo RN * Trust Relationship/Rapport Answer Date of Assessment Author care explained;choices provi ded;emotional support provided;empathic listening provided;questions answered;questions encouraged;reassurance provided;thoughts/feelings acknowledged 09/08/2025 5:31 AM Ashley Macias RN * Infection Prevention Answer Date of Assessment Author environmental surveillance performed;equipment surfaces disinfected;hand hygiene promoted;personal protective equipment utilized;rest/sleep promoted;single patient room provided 09/08/2025 5:31 AM Ashley Macias RN * Outcome Evaluation Answer Date of Assessment Author poc reviewed 09/08/2025 7:36 AM Kati Vo RN * Skin Protection Answer Date of Assessment Author incontinence pads utilized;p rotective footwear used;pulse oximeter probe site changed;silicone foam dressing in place;skin sealant/moisture barrier applied;transparent dressing maintained 09/08/2025 5:31 AM Ashley Macias RN * Individualized Care Needs Answer Date of Assessment Author safety 09/08/2025 7:36 AM Kati Vo RN * Anxieties, Fears or Concerns Answer Date of Assessment Author o2 needs 09/08/2025 7:36 AM Kati Vo RN * Safety Interventions Question Answer Date of Assessment Author Safety Precautions/Falls Reduction assistive device/personal items within reach 09/06/2025 3:37 AM Reji Kimbrough RN All Alarms alarm(s) activated a nd audible 09/06/2025 3:37 AM Reji Kimbrough RN * General Emergency Care CPG Interventions Question Answer Date of Assessment Author Coping Interventions anticipatory guidan ce provided;care explained to patient/family prior to performing 09/06/2025 3:37 AM Reji Kimbrough RN General Care Management calm environment promoted;family presence promoted 09/06/2025 3:37 AM Reji Kimbrough RN * Discharge Needs Assessment Question Answer Date of Assessment Author Discharge Facility/Level of Care Needs 1-Home or Self Care 09/08/2025 11:03 AM Dionne Urrutia RN Equipment Needed After Discharge oxygen 09/08/2025 11:03 AM Dionne Urrutia RN Equipment Currently Used at Home Cpap;oxygen 09/08/2025 11:03 AM Dionne Urrutia RN Current Outpatient/Agency/Support Group [facility] 09/08/2025 11:03 AM Dionne Urrutia RN Anticipated Changes Related to Illness none 09/08/2025 11:03 AM Dionne Urrutia RN Transportation Anticipated family or fri end will provide 09/08/2025 11:03 AM Dionne Urrutia RN Outpatient/Agency/Support Group Needs DME 09/08/2025 11:03 AM Dionne Urrutia RN Transportation Concerns none 09/08/20 11:03 AM Dionne Urrutia RN Concerns to be Addressed no discharge ne eds identified;denies needs/concerns at this time 09/08/2025 11:03 AM Dionne Urrutia RN Readmission Within the Last 30 Days no previous admission in last 30 days 09/08/2025 11:03 AM Dionne Urrutia RN Patient/Family Anticipated Services at Transition outpatient care;durable medical equipment 09/08/2025 11:03 AM Dionne Urrutia RN Patient's Choice of Community Agency(s) Current with [facility] 09/08/2025 11:03 AM Dionne Urrutia RN Patient/Family Anticipates Transition to home with family 09/08/2025 11:03 AM Dionne Urrutia RN Offered/Gave Vendor List no 025 11:03 AM Dionne Urrutia RN Does the patient need discharge transport arranged? No 09/08/2025 11:03 AM Dionne Urrutia RN Has discharge transport been arranged? Yes 09/08/2025 11:03 AM Dionne Urrutia RN What day is the transport expected? [id number] 09/08/2025 11:03 AM Dionne Urrutia RN What time is the transport expected? [id number] 09/08/2025 11:03 AM Dionne Urrutia RN Who is requesting discharge planning? Provider 09/08/2025 11:03 AM Dionne Urrutia RN * Plan of Care Reviewed With Answer Date of Assessment Author patient;caregiver 09/08/2025 7:36 AM Lian Vo RN * Pressure Injury Prevention (PIP) Interventions Question Answer Date of Assessment Author Pressure Reducing Devices Pillow 09/08/2025 10:0 0 AM Lian Vo RN Preventative Foam Dressing Location Coccyx 09/08/2025 10:00 AM Lian Vo RN Preventative Foam Dressing Intervention Applied 09/08/2025 4:00 AM Ashley Macias RN Preventative Padding for Abatement Worker Respiratory mask 09/08/2025 6:00 AM Ashley Macias RN Bed Type Acute Care Bed 09/08/2025 12:00 PM Lian Barry RN * Vital Signs Question Answer Date of Assessment Author BP 102/66 09/08/2025 11:36 AM Randal Hoffman Flowsheet In Temp 97.3 09/08/2025 11:36 AM Randal Hoffman Flowsheet In Pulse 74 09/08/2025 11:36 AM Randal Hoffman Flowsheet In Heart Rate Source Monitor 09/07/2025 1:00 AM Nargis Cyr CNA BP Location Right arm 09/07/2025 4:50 AM Lavern Sanchez BP Method Automatic 09/07/2025 4:50 AM Lavern Sanchez MAP (mmHg) 78 09/08/2025 11:36 AM Randal Hoffman Flowsheet In Patient Position Lying 09/07/2025 4:50 AM Lavern Diaz * Oxygen Therapy Question Answer Date of Assessment Author SpO2 95 09/08/2025 11:36 AM Randal Marroquin Flowsheet In O2 Flow Rate (L/min) 1 09/08/2025 10:00 AM Lian Vo RN Oximetry Probe Site Changed No 09/06/2025 6:13 PM Aristides Waters Pulse Oximetry Type Continuous 09/07/2025 1:00 AM Nargis Bucio CNA Patient Activity During SpO2 Measurement At rest 09/07/2025 1:00 AM Nargis Cyr CNA Oxygen Therapy Supplemental oxygen 09/08/2025 1 0:00 AM Lian Vo RN O2 Delivery Method Nasal cannula 09/08/2025 10 :00 AM Lian Vo RN Oximetry Probe Site Location Right Digit 09/06/2025 6:13 PM Aristides Waters * Vitals Question Answer Date of Assessment Author Resp 16 09/08/2025 11:00 AM Lian Church RN * Neurological Question Answer Date of Assessment Author Level of Consciousness Alert 09/08/2025 11:25 A M Lian Vo RN Orientation Level Oriented X4 09/08/2025 11:25 AM Lian Vo RN * Cardiac Question Answer Date of Assessment Author Cardiac Rhythm V-Paced 09/08/2025 11:25 AM Lian Barry RN Heart Sounds S1, S2 09/08/2025 11:25 AM Lian Church RN Jugular Venous Distention (JVD) No 11:25 AM Lian Vo RN * Pacemaker Question Answer Date of Assessment Author Pacemaker Type Permanent 09/08/2025 11:25 AM EST Lian Flowers RN * Gastrointestinal Question Answer Date of Assessment Author Abdominal Tenderness Soft 09/08/2025 11:25 AM Lian Vo RN Bowel Sounds (All Quadrants) Active 06/2025 11:25 AM Lian Vo RN Gastrointestinal (WDL) WDL 11:25 AM Lian Vo RN Abdomen Inspection Soft;Nondistended 09/08/2025 11:25 AM Lian Vo RN * Peripheral Vascular Question Answer Date of Assessment Author Peripheral Vascular (WDL) X 09/08/2025 11:25 AM Lian Vo RN Generalized Edema Non-pitting 09/08/2025 11: 25 AM Lian Vo RN Capillary Refill Less than/equal to 2 seconds (All extremities) 09/08/2025 11:25 AM Lian Vo RN Pulses R radial;L radial;R pedal;L pedal 09/08/2025 4:00 AM Ashley Macias RN Edema Generalized 09/08/2025 11:25 AM Lian Vo RN * RUE Neurovascular Assessment Question Answer Date of Assessment Author R Radial Pulse +2 09/08/2025 11:25 AM EST Po Lian yung RN * LUE Neurovascular Assessment Question Answer Date of Assessment Author L Radial Pulse +2 09/08/2025 11:25 AM EST Po Lian yung RN * RLE Neurovascular Assessment Question Answer Date of Assessment Author R Pedal Pulse +2 09/08/2025 11:25 AM EST Lian Barrientos RN * LLE Neurovascular Assessment Question Answer Date of Assessment Author L Pedal Pulse +2 09/08/2025 11:25 AM EST Lian Barrientos RN * Musculoskeletal Question Answer Date of Assessment Author Musculoskeletal (WDL) WDL 09/08/2025 11:25 AM Lian Vo RN * Urine Assessment Question Answer Date of Assessment Author Urine Color Yellow/straw 09/08/2025 11:25 AM Lian Church RN Urine Appearance Clear 09/08/2025 4:00 AM Ashley Barron RN Urine Odor No odor 09/08/2025 4:00 AM Ashley Macias RN Urinary Incontinence No 09/08/2025 11:25 AM Lian Vo RN * Psychosocial Question Answer Date of Assessment Author Psychosocial (WDL) WDL 09/08/2025 11:25 AM Lian Gandara RN * Denny Fall Risk Question Answer Date of Assessment Author History of Falling, Immediat e or Within 3 Months 0 09/08/2025 8:00 AM Lian Vo RN Secondary Diagnosis 15 09/08/2025 8:00 AM Lian Gandara RN Ambulatory Aid 0 09/08/2025 8:00 AM Lian Cox RN Intravenous Therapy/Heparin Lock 20 09/08/20 8:00 AM Lian Vo RN Gait/Transferring 0 09/08/2025 8:00 AM Lian Vo RN Mental Status 0 09/08/2025 8:00 AM Lian Church RN Denny Fall Risk Score 35 09/08/2025 8:00 AM Lian Vo RN * Alirio Scale Question Answer Date of Assessment Author Sensory Perceptions 4 09/08/2025 4:00 AM Ashley Busch RN Moisture 4 09/08/2025 4:00 AM Ashley Macias RN Activity 4 09/08/2025 4:00 AM Ashley Macias RN Mobility 3 09/08/2025 4:00 AM Ashley Macias RN Nutrition 3 09/08/2025 4:00 AM Ashley Macias RN Friction and Shear 3 09/08/2025 4:00 AM Ashley Macias RN Alirio Scale Score 21 09/08/2025 4:00 AM Ashley Macias RN * BSA (Calculated - sq m) Answer Date of Assessment Author 2.07 09/08/2025 4:00 AM Marlene Sifuentes * BMI (Calculated) Answer Date of Assessment Author 45.79 09/08/2025 4:00 AM Marlene Sifuentes * Cardiac Question Answer Date of Assessment Author Cardiac (WDL) X 09/08/2025 4:00 AM Ashley Macias RN Pacemaker Yes 09/08/2025 4:00 AM Ashley Macias RN Cardiac Regularity Regular 09/08/2025 4:00 AM Ashley Macias RN * Respiratory Question Answer Date of Assessment Author Bilateral Breath Sounds Diminished 09/08/2025 11:25 AM Lian Vo RN Respiratory Pattern Regular 09/08/2025 11:25 AM Lian Garcia RN Chest Assessment Symmetrical 09/08/2025 11:25 AM Lian Vo RN Respiratory (WDL) X 09/08/2025 11:25 AM Lian Vo RN Respiratory Effort Unlabored 09/08/2025 7:29 AM Lian Vo RN Respiratory Depth/Rhythm Regular 09/08/2025 4:00 AM Ashley Macias RN Dyspnea Occurrence With exertion 09/08/2025 7:29 AM Lian Gandara RN * Vitals Question Answer Date of Assessment Author Namrata iglesias Axillary 09/08/2025 4:00 AM EST Marcie Armendariz Weight 3629.65 09/08/2025 4:00 AM MARGIE Marcie Armendariz * Point of Care Tests Question Answer Date of Assessment Author Provider Role Hospitalist 09/07/2025 8:31 PM Ashley Macias RN Provider Name Clarke Dueñas MD 09/07/2025 8:31 PM Ashley Macias RN Method of Communication Secure message 09/07/2025 8:31 PM Ashley Macias RN Reason for Communication Abnormal vitals 09/07/2025 8: 31 PM Ashley Macias RN Response Other (Comment) 09/07/2025 8:31 PM Ashley Eric RN * Patient Information Question Answer Date of Assessment Author Accompanied by/Relationship mother 09/07/2025 2:24 PM Dionne Urrutia R N Support System Immediate family 09/07/2025 2:24 PM Dionne Urrutia RN * Activities of Daily Living Question Answer Date of Assessment Author Living Arrangements Parent/Gaurdian 09/07/2025 2:24 PM Dionne Urrutia RN Type of Residence Private residence;Single Level 09/07/2025 2:24 PM Dionne Urrutia RN * Income Information Question Answer Date of Assessment Author Income Source Disabled 09/07/2025 2:24 PM Dionne Acosta RN Income/Expense Information Income meets expenses 09/07/2025 2:24 PM Dionne Urrutia RN Current Resources Utilized None 09/07/2025 2:24 PM Dionne Urrutia R N * Advance Directives (For Healthcare) Question Answer Date of Assessment Author Advance Directive Patient would not li ke information 09/07/2025 8:35 PM Ashley Macias RN Pre-existing DNR/DNI Order No 09/07/2025 8:35 PM Ashley Macias RN Information Provided on Healthcare Directives No 09/07/2025 8:35 PM Ashley Macias R N Patient Requests Assistance No 09/07/2025 8:35 PM Ashley Macias RN Have you reviewed your Advance Directive and is it valid for this stay? No 09/06/2025 12:00 PM Earl Brand RN * Nutrition Screen Question Answer Date of Assessment Author Difficulty Chewing or Swallowing No 09/07/2025 8:37 PM Ashley Macias RN Burn, Pressure Injury, or Non-Healing Wound No 09/07/2025 8:37 PM Ashley Macias RN Home Tube Feeding or Total Parenteral Nutrition (TPN) No 09/07/2025 8:37 PM Renny Macias RN Food allergy, Anabaptist, or Cultural nutrition needs Yes (Comment) 09/07/2025 8:37 PM Ashley Macias RN * Trauma/Abuse Assessment Question Answer Date of Assessment Author Physical Abuse Denies 09/07/2025 8:36 PM Ashley Lynn RN Verbal Abuse Denies 09/07/2025 8:36 PM Ashley Macias RN * Values/Beliefs Question Answer Date of Assessment Author Cultural Requests During Hospitalization na 09/07/2025 8:00 PM Ashley Macias RN Spiritual Requests During Hospitalization na 09/07/2025 8:00 PM Ashley Macias RN Unable to assess No 09/07/2025 8:00 PM Ashley Barron RN * Genitourinary Question Answer Date of Assessment Author Genitourinary (AYSHAL) PERCY 09/08/2025 11:25 AM Lian Garcia RN * Neurological Question Answer Date of Assessment Author Neuro (PERCY) PERCY 09/08/2025 4:00 AM Ashley Macias RN * Height and Weight Question Answer Date of Assessment Author Height 59 09/06/2025 6:39 AM Reji Jones RN * Safe Environment Question Answer Date of Assessment Author 37-Pin Connection [Bed and Wall] Yes 09/08/20 10:00 AM Lian Vo RN Arm Bands On ID 09/08/2025 12:00 PM Lian Church RN Side Rails/Bed Safety 2/4 09/08/2025 10:00 AM Lian Vo RN NonSkid Footwear On 09/08/2025 10:00 AM Lian Vo RN The Patient's Environment is Safe Yes 025 10:00 AM Lian Vo RN Bed Foot Left Rail Up State No 09/08/2025 8: 00 AM Lian Vo RN Bed Head Right Rail Up State Yes 09/08/2025 8 :00 AM Lian Vo RN Bed Head Left Rail Up State Yes 09/08/2025 8: 00 AM Lian Vo RN Bed Foot Right Rail Up State No 09/08/2025 8 :00 AM Lian Vo RN Bed Exit System Activate Status No 8:00 AM Lian Vo RN Bed Brake State Yes 09/08/2025 8:00 AM Lian Barry RN Bed Low Height State Yes 09/08/2025 8:00 AM Lian Garcia RN Chair Exit System Activate Status No 6:00 AM Ashley Macias RN * Fall Risk Interventions Question Answer Date of Assessment Author Safety Promotion/Fall Prevention activity supervised;assistive device/personal items within reach;clutter-free environment maintained;fall prevention program maintained;nonskid shoes/slippers when out of bed;room organization consistent;safety round/check completed;other (see comments);lighting adjusted;mobility aid in reach 09/08/2025 10:00 AM Lian Vo RN Enhanced Safety Measures bed alarm set 09/08/2025 10:00 AM Lian Vo RN Toilet Every 2 Hours-In Advance of Need Yes 09/08/2025 10:00 AM Lian Vo RN Hourly Visual Checks Awake;In bed 09/08/2025 10:00 AM Lian Vo RN Room Door Open Deferred to decrease stimulation 09/08/2025 10:00 AM Lian Vo RN Gait Belt Used For Transfers Not applicable 09/08/2025 6:00 AM Ashley Macias RN Fall Bundle Components Call light within reach;Personal belongings within reach;Overbed table within reach;Bed wheels locked;Non-skid footwear on if up in chair or ambulating;Staff to remain with patient during toileting;Bed in lowest position 09/08/2025 10:00 AM Lian Vo RN * Mobility Question Answer Date of Assessment Author Range of Motion active ROM (range of motion) encouraged 09/08/2025 6:00 AM Ashley Macias RN Activity Management activity encouraged; up ad cristobal 09/08/2025 10:00 AM Lian Vo RN Activity Assistance Provided assistance, stand-by 09/08/2025 10:00 AM Lian Vo RN Body Position weight shifting 09/08/2025 10:00 AM Lian Vo RN VTE Prevention/Management bilateral;SCDs (sequential compression devices) off 09/08/2025 10:00 AM Lian Vo RN Head of Bed (HOB) Positioning HOB elevated 09/08/2025 6:00 AM Ashley Macias RN Repositioned Pillow support;Turns self 09/08/2025 10:00 AM Lian Vo RN Head of Bed Elevated Self regulated 09/08/2025 6:00 AM Ashley Macias RN Heels/Feet Heels elevated off bed 10:00 AM Lian Vo RN Reason for Removing Anti-Embolism Device Ambulating 09/08/2025 6:00 AM Ashley Macias RN Positioning Frequency Able to turn self 09/08/20 25 12:00 PM Lian Vo RN Early Mobility/Exercise Safety Screen Proceed with mobilization - No exclusion criteria met 09/08/2025 10:00 AM Lian Vo RN Documentation of an Acceptable Level of Exercise/Mobilization Performed Walk in room 09/08/2025 10:00 AM Lian Vo RN * Hygiene Question Answer Date of Assessment Author Perineal Care perineum cleansed 09/07/2025 8:00 PM Ashley Macias RN Bathing/Skin Care shampoo;dressed/undr essed ;back care;foot care 09/07/2025 10:00 PM Marcie Sifuentes Oral Care tongue brushed 09/07/2025 8:00 PM Ashley Lynn RN Oral Care (Yes/No) Yes 09/07/2025 8:00 PM Ashley Macias RN * Precautions Question Answer Date of Assessment Author Isolation Precautions precautions maintained;protective 09/08/2025 10:00 AM Lian Vo RN Precautions Environmental surveillance 09/08/2025 12:00 PM Lain Vo RN * Family/Significant Other Communication Question Answer Date of Assessment Author Family/Significant Other Update Visiting 8:00 PM Ashley Macias RN * Telemetry Details Question Answer Date of Assessment Author Clerical Investigator On No 09/08/2025 12:00 PM Lian Vo RN * Comfort and Environment Interventions Question Answer Date of Assessment Author Comfort Repositioned 09/08/2025 6:00 AM Ashley Macias RN * Safety Equipment at Bedside Question Answer Date of Assessment Author Standard Bedside Safety Ambu bags in hallway;Oxygen available and working 09/08/2025 10:00 AM Lian Vo RN Additional Bedside Safety Bed in locked and low position;Clutter free environment 09/08/2025 10:00 AM Lian Vo RN * Consults Question Answer Date of Assessment Author Integrative Medicine Consult Needed No 09/07 8:35 PM Ashley Macias RN Pastoral Care Consult Needed No 09/07/2025 8 :35 PM Ashley Macias RN Social Services Consult Needed No 09/07/2025 8:35 PM Ashley Macias RN * Therapy Consults Question Answer Date of Assessment Author PT Evaluation Needed 2 09/07/2025 8:35 PM Ashley Grande RN OT Evaluation Needed 2 09/07/2025 8:35 PM Ashley Grande RN EQUIPMENT WASHER Evaluation Needed 2 09/07/2025 8:35 PM Ashley Macias RN * Assistive Devices Question Answer Date of Assessment Author Assistive Devices CPAP;Eyeglasses;Oxygen 09/07/2025 8: 32 PM Ashley Macias RN * PAINAD (Pain Assessment in Advanced Dementia) Question Answer Date of Assessment Author Pain Management Interventions pain management plan reviewed with patient/caregiver 09/07/2025 8:20 PM Ashley Macias RN * Provider Notification Question Answer Date of Assessment Author Notification Time 10646 09/07/2025 8:31 PM Ashley Macias RN * Hourly Rounding Question Answer Date of Assessment Author Hourly Rounding Complete Per Guideline Yes 09/08/2025 1:00 PM Lian Vo RN * Patient Violence Risk Assessment Question Answer Date of Assessment Author History of Violence: In the past 12 hours has the PATIENT exhibited any of the following? None 09/07/2025 8:00 PM Ashley Macias RN Potential for Violence: In the past 12 hours has the PATIENT exhibited any of the following? None 09/07/2025 8:00 PM Ashley Macias RN Risk No identified risk 09/07/2025 8:00 PM Ashley Macias RN History of Violence: In the past 12 hours has a PARTNER IN CARE of the patient exhibited any of the following? None 09/07/2025 8:00 PM Ashley Macias RN * Mobility Question Answer Date of Assessment Author Ambulation Independent 09/08/2025 4:00 AM Ashley Macias RN * Breathing Question Answer Date of Assessment Author R Breath Sounds Diminished 09/07/2025 3:02 PM EST Darlene Ford RN L Breath Sounds Diminished 09/07/2025 3:02 PM EST Darlene Ford RN * Disability Question Answer Date of Assessment Author L Pupil Reaction Brisk 09/07/2025 3:02 PM Darlene Castaneda RN L Pupil Size (mm) 3 09/07/2025 3:02 PM EST Darlene Pizarro RN R Pupil Reaction Brisk 09/07/2025 3:02 PM Darlene Castaneda RN R Pupil Size (mm) 3 09/07/2025 3:02 PM Darlene Alba RN * Restart Vitals Timer Answer Date of Assessment Author Yes 09/08/2025 4:00 AM EST Marlene Armendariz * STOP-Bang Questionnaire Question Answer Date of Assessment Author Do you snore loudly? 1 09/07/2025 8:00 PM Ashley Grande RN Do you often feel tired or f atigued after your sleep? 0 09/07/2025 8:00 PM Ashley Macias RN Has anyone ever observed you stop breathing in your sleep? 1 09/07/2025 8:00 PM Ashley Macias RN Do you have or are you being treated for high blood pressure? 0 09/07/2025 8:00 PM Ashley Macias RN Is BMI greater than 35 kg/m2? 1=Yes 09/07/2025 8:00 PM Ashley Macias RN Age older than 50 years old? 0=No 09/07/2025 8 :00 PM Ashley Macias RN Is your neck circumference g reater than 17 inches (Male) or 16 inches (Female)? 1 09/07/2025 8:00 PM Ashley Macias RN Gender - Male 0=No 09/07/2025 8:00 PM Ashley Macias RN STOP-Bang Total Score 4 09/07/2025 8:00 PM Ashley Macias RN Recent BMI (Calculated) 44.9 09/07/2025 8:00 P M Ashley Macias RN * Calculated C-SSRS Risk Score (Lifetime/Recent) Answer Date of Assessment Author No Risk Indicated 09/07/2025 8:00 PM Wil Macias RN * Ragini Coma Scale Question Answer Date of Assessment Author Best Eye Response Spontaneous 09/08/2025 11:25 AM Lian Vo RN Best Verbal Response Oriented 09/08/2025 11:25 AM Lian Vo RN Best Motor Response Follows commands 09/08/2025 11:25 AM Lian Vo RN Ragini Coma Scale Score 15 09/08/2025 11:25 AM Lian Vo RN * Learning Assessment Question Answer Date of Assessment Author Education Level Special education 09/06/2025 3:3 7 AM Reji Kimbrough RN Factors that Impact Ability to Learn Cognitive limitations 09/06/2025 3:37 AM Reji Kimbrough RN Cultural Considerations None 09/06/20 3:37 AM Reji Kimbrough RN Anabaptist Considerations None 025 3:37 AM Reji Kimbrough RN * TANYA 1 Fall Risk Factor Assessment Question Answer Date of Assessment Author Presented to ED because of fall 0 7:43 AM Earl Brand RN Age > 70 0 09/06/2025 7:43 AM Earl Brand, LEIGHA Intoxicated with alcohol or substance confusion 0 09/06/2025 7:43 AM Earl Brand RN Ambulates or transfers with assistive devices or assist 0 09/06/2025 7:43 AM Sylvia Brand RN Unable to ambulate or transfer 0 09/06/2025 7:43 AM Earl Brand RN Nursing judgement 0 09/06/2025 7:43 AM Earl Brand RN KINDER 1 Fall Risk Score 0 09/06/2025 7:43 AM Earl Brand RN * Patient Belongings Placed in Locker Question Answer Date of Assessment Author Clothing Pants;Socks;Underpan ts;Sh irt;Bra;Footwear 09/06/2025 3:38 AM Reji Kimbrough RN Belongings at Bedside Clothing;Retained by patient and/or family/legal hotel services sales representative who assumes responsibility 09/06/2025 3:38 AM Reji Kimbrough RN * Weight in (lb) to have BMI = 25 Answer Date of Assessment Author 123.5 09/06/2025 6:39 AM Pilo Kimbrough RN * Pain Assessment Question Answer Date of Assessment Author Pain Location Abdomen;Back 09/07/2025 12:34 PM Darlene Montejo RN Patient's Stated Pain Goal 2 09/07/2025 8:20 PM Ashley Macias RN Clinical Progression Not changed 09/07/2025 12:34 PM Darlene Alba RN Pain Score 0 09/08/2025 7:00 AM Lian Jo RN Pain Assessment 0-10 (Adult DVPRS/Peds 0-10) 09/08/2025 7:00 AM Lian Vo RN * Nutrition Question Answer Date of Assessment Author Fluid Restrictions 1800 09/07/2025 8:00 PM Ashley Macias RN Diet Type 1800 mL Fluid Restriction;Regular;Ca rdiac;2 gram sodium diet 09/08/2025 12:00 PM Lian Vo RN Feeding Able to feed self 09/08/2025 12:00 PM Lian Vo RN Appetite Good 09/07/2025 8:00 PM Ashley Macias RN * Respiratory Interventions Question Answer Date of Assessment Author Respiratory Interventions Cough and deep breathing 09/08/2025 7:29 AM Lian Vo RN * Cough and Deep Breathe Question Answer Date of Assessment Author Cough And Deep Breathing done independently per patient 09/08/2025 7:29 AM Lian Vo RN * Patient Belongings Sent to Safe/Security Question Answer Date of Assessment Author Belongings Sent to Safe/Security None 09/06/20 3:38 AM Reji Kimbrough RN * Integumentary Question Answer Date of Assessment Author Skin Color Appropriate for ethnicity 09/08/2025 11:25 AM Lian Vo RN Skin Condition/Temp Warm 09/08/2025 1 1:25 AM Lian Vo RN Skin Integrity Abrasion 09/08/2025 11:25 AM Lian Vo RN Skin Turgor Tenting 09/08/2025 11:25 AM Lian Vo RN 4 Eyes Skin Assessment Completed Yes 09/07/2025 8:00 PM Ashley Macias RN Manual Dual Sign Off 2nd RN LEIGHA Hercules 09/07/2025 8:00 PM Ashley Macias RN Integumentary (WDL) X 09/08/2025 1 1:25 AM Lian Vo RN * Patient Belongings Sent Home Question Answer Date of Assessment Author Belongings Sent Home Clothing 09/08/2025 11:35 AM Lian Vo RN Clothing Sweater;Shirt;Pants 09/08/2025 11:35 AM E Lian Casillas RN * Confusion Assessment Method (CAM) Question Answer Date of Assessment Author Acute Onset and Fluctuating Course (1A) No 09/08/2025 4:00 AM Ashley Macias RN * Feature 3: Altered Level of Consciousness Answer Date of Assessment Author Negative 09/08/2025 4:00 AM Sundeep Macias RN * Sedation Scales Question Answer Date of Assessment Author RASS 0 09/08/2025 4:00 AM Ashley Macias RN * Delirium Assessment Question Answer Date of Assessment Author Delirium Scale Used Confusion Assessment Method 09/08/2025 4:00 AM Ashley Macias RN * Malnutrition Screening Tool (MST) Question Answer Date of Assessment Author Have you recently lost weigh t without trying? 0 09/06/2025 12:00 PM EST Earl Saba RN Have you been eating poorly because of a decreased appetite? 0 09/06/2025 12:00 PM EST Earl James RN * Weight Loss Score Answer Date of Assessment Author 0 09/06/2025 12:00 PM Donnie Brand RN * Malnutrition Score Answer Date of Assessment Author 0 09/06/2025 12:00 PM Donnie Brand RN * Respiratory Question Answer Date of Assessment Author Respiratory Additional Assessments No 09/07/2025 4:14 AM Brianna Sanz RN * Hourly Rounding Question Answer Date of Assessment Author Activity Assistance One person assist 09/07/2025 6:09 PM Darlene Alba RN Toileting Offered and refused 09/07/2025 6:09 PM Darlene Gil RN Call Light Call light present a nd within reach;Oriented to call light 09/07/2025 6:09 PM Darlene Alba RN Rest/ Sleep Resting 09/07/2025 6:09 PM Darlene Brooke RN Rest/ Sleep Enhancement Care clustered t o minimize awakenings 09/07/2025 6:09 PM Darlene Alba RN Completed Hourly Rounding Yes 09/07/2025 6:09 PM Darlene Alba RN Plan of Care Reviewed With Patient;Family 09/07/2025 6:09 PM Darlene Alba RN * Elopement Risk Screen Question Answer Date of Assessment Author Does the patient exhibit any of the following behaviors? No 09/08/2025 4:00 AM Ashley Macias RN Does the patient have a cour t ordered legal guardian? Yes 09/08/2025 4:00 AM Ashley Macias RN * C-SSRS (Frequent Screener) Question Answer Date of Assessment Author Is patient awake, alert, and able/willing to answer questions appropriately? Yes 09/07/2025 8:00 PM Ashley Macias RN 1. Wish to be (Past 1 Month) No 8:00 PM Ashley Macias RN 2. Non-Specific Active Suici jon Thoughts (Past 1 Month) No 09/07/2025 8:00 PM Ashley Macias RN 6. Suicidal Behavior (Lifetime) No 8:00 PM Ashley Macias RN * Discharge Planning Continued Question Answer Date of Assessment Author Transportation Home at Discharge Family/Friend will Provide 09/08/2025 11:03 AM Dionne Urrutia RN * [facility] 6-Clicks Mobility Assessment Question Answer Date of Assessment Author Difficulty patient has turni ng over in bed (including adjusting bedclothes, sheets, and blankets)? 4 09/06/2025 12:00 PM Earl Griggs, LEIGHA Difficulty patient has sitti ng down on and standing up from a chair with arms (wheelchair, bedside commode, etc.)? 4 09/06/2025 12:00 PM Leonor Brand RN Difficulty patient has movin g from lying on back to sitting on the side of the bed? 4 09/06/2025 12:00 PM Earl Brand, RN How much help does the patie nt need moving to and from a bed to a chair (including a wheelchair)? 3 09/06/2025 12:00 PM Earl Evans, RN How much help does the patie nt need to walk in hospital room? 4 09/06/2025 12:00 PM Earl Brand, RN How much help does the patie nt need climbing 3-5 steps with a railing? 3 09/06/2025 12:00 PM Earl Brand, RN [facility] 6-Clicks Mobility Asse ssment Total 22 09/06/2025 12:00 PM Earl Brand, RN documented as of this encounter Mental Status * HEENT Question Answer Entry Date Author IMANI (PERCY) X 09/08/2025 11:25 AM Lian Church RN R Eye Mildly impaired vision 09/08/2025 11:25 A M Lian Vo RN L Eye Mildly impaired vision 09/08/2025 11:25 A M Lian Vo RN * BMI (Calculated) Answer Entry Date Author 45.9 09/08/2025 4:00 AM Marlene Sifuentes * Percent Excess Weight Loss Answer Entry Date Author 0 09/06/2025 6:39 AM Pilo Kimbrough RN * Total Weight Change Percent Answer Entry Date Author 2222 09/08/2025 4:00 AM Marlene Sifeuntes * Weight Change Since Preop Answer Entry Date Author 102.88 09/08/2025 4:00 AM Marlene Sifuentes * Initial Excess Weight Answer Entry Date Author -43.09 09/06/2025 6:39 AM Pilo Kimbrough RN * IBW in lbs (Bariatric) Answer Entry Date Author 95 09/06/2025 6:39 AM Pilo Kimbrough RN * Weight Change Since Last Visit Answer Entry Date Author 2 09/08/2025 4:00 AM Marlene Sifuentes * IBW in kg (Bariatric) Answer Entry Date Author 43.09 09/06/2025 6:39 AM Pilo Kimbrough RN * Percent of IBW Answer Entry Date Author [phone] 09/06/2025 6:39 AM Pilo Kimbrough RN * EBW (kg) Answer Entry Date Author 3,[phone] 09/06/2025 6:39 AM Pilo Kimbrough RN * EBW (lbs) Answer Entry Date Author 3,553.17 09/06/2025 6:39 AM Pilo Kimbrough RN * Energy Conservation Techniques Answer Entry Date Author asking for necessary assista nce promoted;breathing techniques encouraged;correct body mechanics utilized;correct posture facilitated;equipment and device use facilitated;prioritizing activities promoted;regular rest breaks encouraged;relaxation techniques promoted 09/08/2025 5:31 AM Ashley Macias RN * Progress Answer Entry Date Author eun 09/08/2025 7:36 AM Kati Vo RN * Airway Clearance/Ventilation Strategies Answer Entry Date Author deep breathing exercises;oxy gen therapy in use 09/08/2025 5:31 AM Ashley Macias RN * Patient/Family-Specific Goals (Include Timeframe) Answer Entry Date Author free from falls 09/08/2025 7:36 AM Kati Vo RN * Trust Relationship/Rapport Answer Entry Date Author care explained;choices provi ded;emotional support provided;empathic listening provided;questions answered;questions encouraged;reassurance provided;thoughts/feelings acknowledged 09/08/2025 5:31 AM Ashley Macias RN * Infection Prevention Answer Entry Date Author environmental surveillance performed;equipment surfaces disinfected;hand hygiene promoted;personal protective equipment utilized;rest/sleep promoted;single patient room provided 09/08/2025 5:31 AM Ashley Macias RN * Outcome Evaluation Answer Entry Date Author poc reviewed 09/08/2025 7:36 AM Kati Vo RN * Skin Protection Answer Entry Date Author incontinence pads utilized;p rotective footwear used;pulse oximeter probe site changed;silicone foam dressing in place;skin sealant/moisture barrier applied;transparent dressing maintained 09/08/2025 5:31 AM Ashley Macias RN * Individualized Care Needs Answer Entry Date Author safety 09/08/2025 7:36 AM Kati Vo RN * Anxieties, Fears or Concerns Answer Entry Date Author o2 needs 09/08/2025 7:36 AM Kati Vo RN * Safety Interventions Question Answer Entry Date Author Safety Precautions/Falls Reduction assistive device/personal items within reach 09/06/2025 3:37 AM Reji Kimbrough RN All Alarms alarm(s) activated a nd audible 09/06/2025 3:37 AM Reji Kimbrough RN * General Emergency Care CPG Interventions Question Answer Entry Date Author Coping Interventions anticipatory guidan ce provided;care explained to patient/family prior to performing 09/06/2025 3:37 AM Reji Kimbrough RN General Care Management calm environment promoted;family presence promoted 09/06/2025 3:37 AM Reji Kimbrough RN * Discharge Needs Assessment Question Answer Entry Date Author Discharge Facility/Level of Care Needs 1-Home or Self Care 09/08/2025 11:03 AM Dionne Urrutia RN Equipment Needed After Discharge oxygen 09/08/2025 11:03 AM Dionne Urrutia RN Equipment Currently Used at Home Cpap;oxygen 09/08/2025 11:03 AM Dionne Urrutia RN Current Outpatient/Agency/Support Group [facility] 09/08/2025 11:03 AM Dionen Urrutia RN Anticipated Changes Related to Illness none 09/08/2025 11:03 AM Dionne Urrutia RN Transportation Anticipated family or fri end will provide 09/08/2025 11:03 AM Dionne Urrutia RN Outpatient/Agency/Support Group Needs DME 09/08/2025 11:03 AM Dionne Urrutia RN Transportation Concerns none 09/08/20 11:03 AM Dionne Urrutia RN Concerns to be Addressed no discharge ne eds identified;denies needs/concerns at this time 09/08/2025 11:03 AM Dionne Urrutia RN Readmission Within the Last 30 Days no previous admission in last 30 days 09/08/2025 11:03 AM Dionne Urrutia RN Patient/Family Anticipated Services at Transition outpatient care;durable medical equipment 09/08/2025 11:03 AM Dionne Urrutia RN Patient's Choice of Community Agency(s) Current with [facility] [place] 09/08/2025 11:03 AM Dionne Urrutia RN Patient/Family Anticipates Transition to home with family 09/08/2025 11:03 AM Dionne Urrutia RN Offered/Gave Vendor List no 025 11:03 AM Dionne Urrutia RN Does the patient need discharge transport arranged? No 09/08/2025 11:03 AM Dionne Urrutia RN Has discharge transport been arranged? Yes 09/08/2025 11:03 AM Dionne Urrutia RN What day is the transport expected? [id number] 09/08/2025 11:03 AM Dionne Urrutia RN What time is the transport expected? [id number] 09/08/2025 11:03 AM Dionne Urrutia RN Who is requesting discharge planning? Provider 09/08/2025 11:03 AM Dionne Urrutia, LEIGHA * Acuity/Destination Question Answer Entry Date Author Patient Acuity 2 09/05/2025 9:58 PM Kristi Turcios RN Triage Complete Triage complete 09/05/2025 10:02 PM Brianna Manzo, RN * Weight Change 24 hrs Answer Entry Date Author 2 09/08/2025 4:00 AM Marlene Sifuentes * Plan of Care Reviewed With Answer Entry Date Author patient;caregiver 09/08/2025 7:36 AM Lian Vo RN * Pressure Injury Prevention (PIP) Interventions Question Answer Entry Date Author Pressure Reducing Devices Pillow 2024 10:00 AM Lian Vo RN Preventative Foam Dressing Location Coccyx 09/08/2025 10:00 AM Lian Vo RN Preventative Foam Dressing Intervention Applied 09/08/2025 4:00 AM Ashley Macias RN Preventative Padding for Abatement Worker Respiratory mask 09/08/2025 6:00 AM Ashley Macias RN Bed Type Acute Care Bed 09/08/2025 12:00 PM Lian Vo RN * Vital Signs Question Answer Entry Date Author BP 102/66 09/08/2025 11:36 AM Randal Hoffman Flowsheet In Temp 97.3 09/08/2025 11:36 AM Randal Hoffman Flowsheet In Pulse 74 09/08/2025 11:36 AM Randal Hoffman Flowsheet In Heart Rate Source Monitor 09/07/2025 1:00 AM Nargis Cyr CNA BP Location Right arm 09/07/2025 4:50 AM Lavern Sanchez BP Method Automatic 09/07/2025 4:50 AM Lavern Sanchez MAP (mmHg) 78 09/08/2025 11:36 AM Randal Hoffman Flowsheet In Patient Position Lying 09/07/2025 4:50 AM Lavern Diaz * Oxygen Therapy Question Answer Entry Date Author SpO2 95 09/08/2025 11:36 AM MARGIE Mackay, Randal Flowsheet In O2 Flow Rate (L/min) 1 09/08/2025 10:00 AM Lian Vo RN Oximetry Probe Site Changed No 09/06/2025 6:13 PM Aristides Waters Pulse Oximetry Type Continuous 09/07/2025 1 :00 AM Nargis Cyr CNA Patient Activity During SpO2 Measurement At rest 09/07/2025 1:00 AM Nargis Cyr CNA Oxygen Therapy Supplemental oxygen 09/08/2025 1 0:00 AM Lian Vo RN O2 Delivery Method Nasal cannula 09/08/2025 10 :00 AM Lian Vo RN Oximetry Probe Site Location Right Digit 09/06/2025 6:13 PM Aristides Waters * Vitals Question Answer Entry Date Author Resp 16 09/08/2025 11:00 AM Lian Church RN * Neurological Question Answer Entry Date Author Level of Consciousness Alert 09/08/2025 11:25 A M Lian Vo RN Orientation Level Oriented X4 09/08/2025 11:25 AM Lian Vo RN * Cardiac Question Answer Entry Date Author Cardiac Rhythm V-Paced 09/08/2025 11:25 AM Lian Barry RN Heart Sounds S1, S2 09/08/2025 11:25 AM Lian Church RN Jugular Venous Distention (JVD) No 11:25 AM Lian Vo RN * Planting Supervisor Question Answer Entry Date Author Bedside Planting Supervisor On Yes 09/08/2025 11: 25 AM Lian Vo RN Bedside Cardiac Audible Yes 09/08/2025 11:25 AM Lian Vo RN Bedside Cardiac Alarms Set Yes 09/08/2025 11: 25 AM Lian Vo RN * Pacemaker Question Answer Entry Date Author Pacemaker Type Permanent 09/08/2025 11:25 AM Lian Barry RN * Gastrointestinal Question Answer Entry Date Author Abdominal Tenderness Soft 09/08/2025 11:25 AM Lian Vo RN Bowel Sounds (All Quadrants) Active 06/2025 11:25 AM Lian Vo RN Gastrointestinal (WDL) WDL 11:25 AM Lian Vo RN Abdomen Inspection Soft;Nondistended 09/08/2025 11:25 AM Lian Vo RN * Peripheral Vascular Question Answer Entry Date Author Peripheral Vascular (AYSHAL) X 09/08/2025 11:25 AM Lian Vo RN Generalized Edema Non-pitting 09/08/2025 11: 25 AM Lian Vo RN Capillary Refill Less than/equal to 2 seconds (All extremities) 09/08/2025 11:25 AM Lian Vo RN Pulses R radial;L radial;R pedal;L pedal 09/08/2025 4:00 AM Ashley Macias RN Edema Generalized 09/08/2025 11:25 AM EST Lian Long RN * RUE Neurovascular Assessment Question Answer Entry Date Author R Radial Pulse +2 09/08/2025 11:25 AM EST Lian Flowers RN * LUE Neurovascular Assessment Question Answer Entry Date Author L Radial Pulse +2 09/08/2025 11:25 AM EST Po Lian yung RN * RLE Neurovascular Assessment Question Answer Entry Date Author R Pedal Pulse +2 09/08/2025 11:25 AM EST Lian Barrientos RN * LLE Neurovascular Assessment Question Answer Entry Date Author L Pedal Pulse +2 09/08/2025 11:25 AM EST Lian Barrientos RN * Musculoskeletal Question Answer Entry Date Author Musculoskeletal (WDL) WDL 09/08/2025 11:25 AM EST Lian Long RN * Urine Assessment Question Answer Entry Date Author Urine Color Yellow/straw 09/08/2025 11:25 AM EST Lian Osborn RN Urine Appearance Clear 09/08/2025 4:00 AM EST Ashley Correia RN Urine Odor No odor 09/08/2025 4:00 AM Ashley Macias RN Urinary Incontinence No 09/08/2025 11:25 AM EST Lian Long RN * Psychosocial Question Answer Entry Date Author Psychosocial (WDL) WDL 09/08/2025 11:25 AM Lian Gandara RN Length of Time/Family Visitation Rooming in 09/08/2025 4:00 AM Ashley Macias RN * Intake Question Answer Entry Date Author [address] 09/08/2025 5:00 AM Ashley Macias RN * Output (mL) Question Answer Entry Date Author Urine Amount Small 09/07/2025 7:45 AM EST Meghan Serna CNA * Denny Fall Risk Question Answer Entry Date Author History of Falling, Immediat e or Within 3 Months 0 09/08/2025 8:00 AM Lian Vo RN Secondary Diagnosis 15 09/08/2025 8:00 AM Lian Gandara RN Ambulatory Aid 0 09/08/2025 8:00 AM Lian Cox RN Intravenous Therapy/Heparin Lock 20 09/08/20 25 8:00 AM Lian Vo RN Gait/Transferring 0 09/08/2025 8:00 AM Lian Vo RN Mental Status 0 09/08/2025 8:00 AM Lian Church RN Denny Fall Risk Score 35 09/08/2025 8:00 AM Lian Vo RN * Alirio Scale Question Answer Entry Date Author Sensory Perceptions 4 09/08/2025 4:00 AM Ashley Busch RN Moisture 4 09/08/2025 4:00 AM Ashley Macias RN Activity 4 09/08/2025 4:00 AM Ashley Macias RN Mobility 3 09/08/2025 4:00 AM Ashley Macias RN Nutrition 3 09/08/2025 4:00 AM Ashley Macias RN Friction and Shear 3 09/08/2025 4:00 AM Ashley Macias RN Alirio Scale Score 21 09/08/2025 4:00 AM Ashley Macias RN * BSA (Calculated - sq m) Answer Entry Date Author 2.07 09/08/2025 4:00 AM Marlene Sifuentes * BMI (Calculated) Answer Entry Date Author 45.79 09/08/2025 4:00 AM EST Marcello Marlene patiño * Cardiac Question Answer Entry Date Author Cardiac (WDL) X 09/08/2025 4:00 AM Ashley Macias RN Pacemaker Yes 09/08/2025 4:00 AM Ashley Macias RN Cardiac Regularity Regular 09/08/2025 4:00 AM Ashley Macias RN * Respiratory Question Answer Entry Date Author Bilateral Breath Sounds Diminished 09/08/2025 11:25 AM Lian Vo RN Respiratory Pattern Regular 09/08/2025 11:25 AM Lian Garcia RN Chest Assessment Symmetrical 09/08/2025 11:25 AM Lian Vo RN Respiratory (WDL) X 09/08/2025 11:25 AM Lian Vo RN Respiratory Effort Unlabored 09/08/2025 7:29 AM Lian Vo RN Respiratory Depth/Rhythm Regular 09/08/2025 4:00 AM Ashley Macias RN Dyspnea Occurrence With exertion 09/08/2025 7:29 AM Lian Gandara RN * Vitals Question Answer Entry Date Author Temp src Axillary 09/08/2025 4:00 AM EST Amrcello MarshallMarcie Weight 3629.65 09/08/2025 4:00 AM EST Marcie Armendariz Weight Method Standing scale 09/08/2025 4:00 AM EST Marcie Alonzo * Point of Care Tests Question Answer Entry Date Author Provider Role Hospitalist 09/07/2025 8:31 PM Ashley Macias RN Provider Name Clarke Dueñas MD 09/07/2025 8:31 PM Ashley Macias RN Method of Communication Secure message 09/07/2025 8:31 PM Ashley Macias RN Reason for Communication Abnormal vitals 09/07/2025 8: 31 PM Ashley Macias RN Response Other (Comment) 09/07/2025 8:31 PM Ashley Eric RN * Patient Information Question Answer Entry Date Author Primary Caregiver Family 09/07/2025 2:2 4 PM Dionne Urrutia RN Accompanied by/Relationship mother 05/2025 2:24 PM Dionne Urrutia RN Support System Immediate family 09/07/2025 2:24 PM Dionne Urrutia RN Patient's Education Level High school 2024 2:24 PM Dionne Urrutia RN * Activities of Daily Living Question Answer Entry Date Author Functional Status Moderate assistance 09/07/2025 2:24 PM Dionne Urrutia RN Living Arrangements Parent/Gaurdian 09/07/2025 2 :24 PM Dionne Urrutia RN Type of Residence Private residence;Si ngle Level 09/07/2025 2:24 PM Dionne Urrutia RN Smoker in the Home? No 09/07/2025 2 :24 PM Dionne Urrutia RN * Income Information Question Answer Entry Date Author Income Source Disabled 09/07/2025 2:24 PM Dionne Urrutia RN Income/Expense Information Income meets expenses 09/07/2025 2:24 PM Dionne Urrutia RN Current Resources Utilized None 09/07/2025 2:24 PM Dionne Urrutia RN * Advance Directives (For Healthcare) Question Answer Entry Date Author Advance Directive Patient would not li ke information 09/07/2025 8:35 PM Ashley Macias RN Pre-existing DNR/DNI Order No 09/07/2025 8:35 PM Ashley Macias RN Information Provided on Healthcare Directives No 09/07/2025 8:35 PM Ashley Macias RN Patient Requests Assistance No 09/07/2025 8:35 PM Ashley Macias RN Have you reviewed your Advance Directive and is it valid for this stay? No 09/06/2025 12:00 PM Earl Brand RN * Nutrition Screen Question Answer Entry Date Author Difficulty Chewing or Swallowing No 09/07/2025 8:37 PM Ashley Macias RN Burn, Pressure Injury, or Non-Healing Wound No 09/07/2025 8:37 PM Ashley Macias RN Home Tube Feeding or Total Parenteral Nutrition (TPN) No 09/07/2025 8:37 PM Renny Macias RN Food allergy, Anabaptist, or Cultural nutrition needs Yes (Comment) 09/07/2025 8:37 PM Ashley Macias RN * Trauma/Abuse Assessment Question Answer Entry Date Author Physical Abuse Denies 09/07/2025 8:36 PM Ashley Lynn RN Verbal Abuse Denies 09/07/2025 8:36 PM Ashley Macias RN * Values/Beliefs Question Answer Entry Date Author Cultural Requests During Hospitalization na 09/07/2025 8:00 PM Ashley Macias RN Spiritual Requests During Hospitalization na 09/07/2025 8:00 PM Ashley Macias RN Unable to assess No 09/07/2025 8:00 PM Ashley Barron RN * Genitourinary Question Answer Entry Date Author Genitourinary (WDL) WDCheryl 09/08/2025 11:25 AM Lian Garcia RN * Neurological Question Answer Entry Date Author Neuro ([facility]) [facility] 09/08/2025 4:00 AM Ashley Macias RN * Height and Weight Question Answer Entry Date Author Height 59 09/06/2025 6:39 AM Reji Jones RN Height Method Stated 09/06/2025 6:39 AM Reji Madrigal RN * Safe Environment Question Answer Entry Date Author 37-Pin Connection [Bed and Wall] Yes 09/08/20 25 10:00 AM Lian Vo RN Arm Bands On ID 09/08/2025 12:00 PM Lian Church RN Side Rails/Bed Safety 2/4 09/08/2025 10:00 AM Lian Vo RN NonSkid Footwear On 09/08/2025 10:00 AM Lian Vo RN The Patient's Environment is Safe Yes 025 10:00 AM Lian Vo RN Bed Foot Left Rail Up State No 09/08/2025 8: 00 AM Lian Vo RN Bed Head Right Rail Up State Yes 09/08/2025 8 :00 AM Lian Vo RN Bed Head Left Rail Up State Yes 09/08/2025 8: 00 AM Lian Vo RN Bed Foot Right Rail Up State No 09/08/2025 8 :00 AM Lian Vo RN Bed Exit System Activate Status No 8:00 AM Lian Vo RN Bed Brake State Yes 09/08/2025 8:00 AM Lian Barry RN Bed Low Height State Yes 09/08/2025 8:00 AM Lian Garcia RN Chair Exit System Activate Status No 6:00 AM Ashley Macias RN * Fall Risk Interventions Question Answer Entry Date Author Safety Promotion/Fall Prevention activity supervised;assistive device/personal items within reach;clutter-free environment maintained;fall prevention program maintained;nonskid shoes/slippers when out of bed;room organization consistent;safety round/check completed;other (see comments);lighting adjusted;mobility aid in reach 09/08/2025 10:00 AM Lian Vo RN Enhanced Safety Measures bed alarm set 09/08/2025 10:00 AM Lian Vo RN Toilet Every 2 Hours-In Advance of Need Yes 09/08/2025 10:00 AM Lian Vo RN Hourly Visual Checks Awake;In bed 09/08/2025 10:00 AM Lian Vo RN Room Door Open Deferred to decrease stimulation 09/08/2025 10:00 AM Lian Vo RN Gait Belt Used For Transfers Not applicable 09/08/2025 6:00 AM Ashley Macias RN Fall Bundle Components Call light within reach;Personal belongings within reach;Overbed table within reach;Bed wheels locked;Non-skid footwear on if up in chair or ambulating;Staff to remain with patient during toileting;Bed in lowest position 09/08/2025 10:00 AM Lian Vo RN * Mobility Question Answer Entry Date Author Range of Motion active ROM (range of motion) encouraged 09/08/2025 6:00 AM Ashley Macias RN Activity Management activity encouraged; up ad cristobal 09/08/2025 10:00 AM Lian Vo RN Activity Assistance Provided assistance, stand-by 09/08/2025 10:00 AM Lian Vo RN Body Position weight shifting 09/08/2025 10:00 AM Lian Vo RN VTE Prevention/Management bilateral;SCDs (sequential compression devices) off 09/08/2025 10:00 AM Lian Vo RN Head of Bed (HOB) Positioning HOB elevated 09/08/2025 6:00 AM Ashley Macias RN Repositioned Pillow support;Turns self 09/08/2025 10:00 AM Lian Vo RN Head of Bed Elevated Self regulated 09/08/2025 6:00 AM Ashley Macias RN Heels/Feet Heels elevated off bed 10:00 AM Lian Vo RN Reason for Removing Anti-Embolism Device Ambulating 09/08/2025 6:00 AM Ashley Macias RN Positioning Frequency Able to turn self 09/08/20 25 12:00 PM Lian Vo RN Early Mobility/Exercise Safety Screen Proceed with mobilization - No exclusion criteria met 09/08/2025 10:00 AM Lian Vo RN Documentation of an Acceptable Level of Exercise/Mobilization Performed Walk in room 09/08/2025 10:00 AM Lian Vo RN * Hygiene Question Answer Entry Date Author Perineal Care perineum cleansed 09/07/2025 8:00 PM Ashley Macias RN Bathing/Skin Care shampoo;dressed/undr essed; back care;foot care 09/07/2025 10:00 PM Marcie Sifuentes Oral Care tongue brushed 09/07/2025 8:00 PM Ashley Lynn RN Oral Care (Yes/No) Yes 09/07/2025 8:00 PM Ashley Macias RN * Precautions Question Answer Entry Date Author Isolation Precautions precautions maintained;protective 09/08/2025 10:00 AM Lian Vo RN Precautions Environmental surveillance 09/08 12:00 PM Lian Vo RN * Family/Significant Other Communication Question Answer Entry Date Author Family/Significant Other Update Visiting 8:00 PM Ashley Macias RN * Telemetry Details Question Answer Entry Date Author Clerical Investigator On No 09/08/2025 12:00 PM Lian Vo RN * Comfort and Environment Interventions Question Answer Entry Date Author Comfort Repositioned 09/08/2025 6:00 AM Ashley Macias RN * Safety Equipment at Bedside Question Answer Entry Date Author Standard Bedside Safety Ambu bags in hallway;Oxygen available and working 09/08/2025 10:00 AM Lian Vo RN Additional Bedside Safety Bed in locked and low position;Clutter free environment 09/08/2025 10:00 AM Lian Vo RN * IBW/kg (Calculated) Male Answer Entry Date Author 47.7 09/06/2025 6:39 AM Pilo Kimbrough RN * IBW/kg (Calculated) Female Answer Entry Date Author 43.2 09/06/2025 6:39 AM Pilo Kimbrough RN * Consults Question Answer Entry Date Author Integrative Medicine Consult Needed No 09/07 8:35 PM Ashley Macias RN Pastoral Care Consult Needed No 09/07/2025 8 :35 PM Ashley Macias RN Social Services Consult Needed No 09/07/2025 8:35 PM Ashley Macias RN * Therapy Consults Question Answer Entry Date Author PT Evaluation Needed 2 09/07/2025 8:35 PM Ashley Grande RN OT Evaluation Needed 2 09/07/2025 8:35 PM Ashley Grande RN EQUIPMENT WASHER Evaluation Needed 2 09/07/2025 8:35 PM Ashley Macias RN * Assistive Devices Question Answer Entry Date Author Assistive Devices CPAP;Eyeglasses;Oxygen 09/07/2025 8: 32 PM Ashley Macias RN * PAINAD (Pain Assessment in Advanced Dementia) Question Answer Entry Date Author Pain Management Interventions pain management plan reviewed with patient/caregiver 09/07/2025 8:20 PM Ashley Macias RN * Provider Notification Question Answer Entry Date Author Notification Time [id number] 09/07/2025 8:31 PM Ashley Macias RN * Hourly Rounding Question Answer Entry Date Author Hourly Rounding Complete Per Guideline Yes 09/08/2025 1:00 PM Lian Vo RN * Patient Violence Risk Assessment Question Answer Entry Date Author History of Violence: In the past 12 hours has the PATIENT exhibited any of the following? None 09/07/2025 8:00 PM Ashley Macias RN Potential for Violence: In the past 12 hours has the PATIENT exhibited any of the following? None 09/07/2025 8:00 PM Ashley Macias RN Risk No identified risk 09/07/2025 8 :00 PM Ashley Macias RN History of Violence: In the past 12 hours has a PARTNER IN CARE of the patient exhibited any of the following? None 09/07/2025 8:00 PM Ashley Macias RN * Mobility Question Answer Entry Date Author Ambulation Independent 09/08/2025 4:00 AM Ashley Macias RN * Airway Question Answer Entry Date Author Airway Patency Patent 09/07/2025 3:02 PM EST Darlene Peacock RN Airway ([facility]) WDL 09/07/2025 3:02 PM EST Darlene Morales RN * Breathing Question Answer Entry Date Author R Breath Sounds Diminished 09/07/2025 3:02 PM EST Darlene Ford RN L Breath Sounds Diminished 09/07/2025 3:02 PM EST Darlene Ford RN Breathing ([facility]) WD 09/07/2025 7:20 AM EST Darlene Ford RN * Circulation Question Answer Entry Date Author Circulation (WDL) WDL 09/07/2025 7:20 AM EST Darlene Pizarro RN * Disability Question Answer Entry Date Author L Pupil Reaction Brisk 09/07/2025 3:02 PM EST Darlene Lucero RN L Pupil Size (mm) 3 09/07/2025 3:02 PM EST Darlene Pizarro RN R Pupil Reaction Brisk 09/07/2025 3:02 PM EST Darlene Lucero RN R Pupil Size (mm) 3 09/07/2025 3:02 PM EST Darlene Pizarro RN Disability (WDL) WDL 09/07/2025 3:02 PM EST Darlene Lucero RN * Restart Vitals Timer Answer Entry Date Author Yes 09/08/2025 4:00 AM EST Marlene Armendariz * Injection Rate mL/s Answer Entry Date Author 4 09/06/2025 1:45 AM EST Eleazar Wang * IBW/kg (Calculated) Answer Entry Date Author 43.2 09/06/2025 6:39 AM Pilo Kimbrough RN * STOP-Bang Questionnaire Question Answer Entry Date Author Do you snore loudly? 1 09/07/2025 8:00 PM Ashley Grande RN Do you often feel tired or f atigued after your sleep? 0 09/07/2025 8:00 PM Ashley Macias RN Has anyone ever observed you stop breathing in your sleep? 1 09/07/2025 8:00 PM Ashley Macias RN Do you have or are you being treated for high blood pressure? 0 09/07/2025 8:00 PM Ashley Macias RN Is BMI greater than 35 kg/m2? 1=Yes 09/07/2025 8:00 PM Ashley Macias RN Age older than 50 years old? 0=No 09/07/2025 8 :00 PM Ashley Macias RN Is your neck circumference g reater than 17 inches (Male) or 16 inches (Female)? 1 09/07/2025 8:00 PM Ashley Macias RN Gender - Male 0=No 09/07/2025 8:00 PM Ashley Macias RN STOP-Bang Total Score 4 09/07/2025 8:00 PM Ashley Macias RN Recent BMI (Calculated) 44.9 09/07/2025 8:00 P M Ashley Macias RN * HARK Concern Calculation Answer Entry Date Author 97 09/07/2025 2:23 PM Jeanette Urrutia RN * Food Insecurity Concern Calculation Answer Entry Date Author 1 09/07/2025 2:23 PM Jeanette Urrutia RN * Transportation Needs Concern Calculation Answer Entry Date Author 1 09/07/2025 2:23 PM Jeanette Urrutia RN * Housing Stability Concern Calculation Answer Entry Date Author 1 09/07/2025 2:23 PM Jeanette Urrutia RN * Utilities Concern Calculation Answer Entry Date Author 1 09/07/2025 2:23 PM Jeanette Urrutia RN * Calculated C-SSRS Risk Score (Lifetime/Recent) Answer Entry Date Author No Risk Indicated 09/07/2025 8:00 PM Wil Macias RN * Ragini Coma Scale Question Answer Entry Date Author Best Eye Response Spontaneous 09/08/2025 11:25 AM Lian Vo RN Best Verbal Response Oriented 09/08/2025 11:25 AM Lian Vo RN Best Motor Response Follows commands 09/08/2025 11:25 AM Lian Vo RN Drake Coma Scale Score 15 09/08/2025 11:25 AM Lian Vo RN * Departure Condition Question Answer Entry Date Author Mobility at Departure Bed 09/07/2025 6:36 PM Darlene Alba RN Departure Mode Escorted by staff 09/07/2025 6:36 PM Darlene Gil RN * Restart Pain Assessment Timer Answer Entry Date Author Yes 09/08/2025 7:00 AM Kati Vo RN * Seizure Question Answer Entry Date Author Seizure No 09/06/2025 8:00 AM Earl Brand, LEIGHA * TANYA 1 Fall Risk Factor Assessment Question Answer Entry Date Author Presented to ED because of fall 0 7:43 AM Earl Brand RN Age > 70 0 09/06/2025 7:43 AM Earl Brand RN Intoxicated with alcohol or substance confusion 0 09/06/2025 7:43 AM Earl Brand RN Ambulates or transfers with assistive devices or assist 0 09/06/2025 7:43 AM Sylvia Brand RN Unable to ambulate or transfer 0 09/06/2025 7:43 AM Earl Brand RN Nursing judgement 0 09/06/2025 7:43 AM Earl Brand RN TANYA 1 Fall Risk Score 0 09/06/2025 7:43 AM Earl Brand RN * Neurological Question Answer Entry Date Author Right Tympanic Membrane Clear 09/05/2025 9:56 P M Kristi James RN Left Tympanic Membrane Clear 09/05/2025 9:56 PM Kristi James RN * Kathleen Suicide Severity Rating Scale Question Answer Entry Date Author Is patient awake, alert, and able to answer questions appropriately? No 09/07/2025 7:20 AM Darlene Alba RN * Patient Belongings Placed in Locker Question Answer Entry Date Author Clothing Pants;Socks;Underpan ts;Lilian t;Bra;Footwear 09/06/2025 3:38 AM Reji Kimbrough RN Belongings placed in Locker None 09/06/2025 3:38 AM Reji Kimbrough RN Belongings at Bedside Clothing;Retained by patient and/or family/legal hotel services sales representative who assumes responsibility 09/06/2025 3:38 AM Reji Kimbrough RN * COMFORT STATION ATTENDANT Information Question Answer Entry Date Author Mode of Arrival Private Vehicle 09/05/2025 9:53 PM Kristi Mascorro RN * Quick Updates Question Answer Entry Date Author Quick Updates - Free Text Pt placed on home cpap with 2L O2 running, pt would like to rest until lunch arrives. Pt and family provided with warm blankets and recliner. 09/06/2025 11:00 AM Earl Brand RN * Weight in (lb) to have BMI = 25 Answer Entry Date Author 123.5 09/06/2025 6:39 AM Pilo Kimbrough RN * BMI (Calculated) Answer Entry Date Author 45.9 09/08/2025 4:00 AM Marlene Sifuentes * Percent Excess Weight Loss Answer Entry Date Author 0 09/06/2025 6:39 AM Pilo Kimbrough RN * Weight Change Since Preop Answer Entry Date Author 102.9 09/08/2025 4:00 AM Marlene Sifuentes * Initial Excess Weight Answer Entry Date Author -43.09 09/06/2025 6:39 AM Pilo Kimbrough RN * IBW in kg (Bariatric) Answer Entry Date Author 43.09 09/06/2025 6:39 AM Pilo Kimbrough RN * IBW in lb (Bariatric) Answer Entry Date Author 95 09/06/2025 6:39 AM Pilo Kimbrough RN * Weight Change Since Last Visit Answer Entry Date Author 2 09/08/2025 4:00 AM EST Marlene Armendariz * Percent of IBW Answer Entry Date Author 234.15 09/06/2025 6:39 AM Pilo Kimbrough RN * EBW (kg) Answer Entry Date Author 57.79 09/06/2025 6:39 AM Pilo Kimbrough RN * EBW (lb) Answer Entry Date Author 127.44 09/06/2025 6:39 AM Pilo Kimbrough RN * Difference in Weight Since Last Visit Answer Entry Date Author 2 09/08/2025 4:00 AM EST Marlene Armendariz * Housing Circumstances-Z Codes Question Answer Entry Date Author Housing Circumstances (selec t all that apply) None Applicable 09/07/2025 2:24 PM Dionne Urrutia RN * Anthropometrics Question Answer Entry Date Author Weight Change 1.98 09/08/2025 4:00 AM EST Marshall Lujanlye * Temp (in Celsius) for NUNAKAUYARMIUT IV Answer Entry Date Author 36.3 09/08/2025 11:36 AM EST Interfac e, Doc Flowsheet In * Pain Assessment Question Answer Entry Date Author Pain Location Abdomen;Back 09/07/2025 12:34 PM Darlene Alba RN Patient's Stated Pain Goal 2 09/07/2025 8:20 PM Ashley Macias RN Clinical Progression Not changed 09/07/2025 12:34 PM Darlene Alba RN Pain Score 0 09/08/2025 7:00 AM Lian Vo RN Pain Assessment 0-10 (Adult DVPRS/Peds 0-10) 09/08/2025 7:00 AM Lian oV RN * Nutrition Question Answer Entry Date Author Fluid Restrictions 1800 09/07/2025 8:00 PM Ashley Macias RN Diet Type 1800 mL Fluid Restriction;Regular;Card iac;2 gram sodium diet 09/08/2025 12:00 PM Lian Vo RN Feeding Able to feed self 09/08/2025 12: 00 PM Lian Vo RN Appetite Good 09/07/2025 8:00 PM Ashley Macias RN * IBW/kg (Calculated) Answer Entry Date Author 43.2 09/06/2025 6:39 AM Pilo Kimbrough RN * Adult Low Range Vt 6mL/kg Answer Entry Date Author 259.2 09/06/2025 6:39 AM Pilo Kimbrough RN * Adult Moderate Range Vt 8mL/kg Answer Entry Date Author 345.6 09/06/2025 6:39 AM Pilo Kimbrough RN * Adult High Range Vt 10mL/kg Answer Entry Date Author 432 09/06/2025 6:39 AM Pilo Kimbrough RN * Respiratory Interventions Question Answer Entry Date Author Respiratory Interventions Cough and deep breathing 09/08/2025 7:29 AM Lian Vo RN * Cough and Deep Breathe Question Answer Entry Date Author Cough And Deep Breathing done independently per patient 09/08/2025 7:29 AM Lian Vo RN * Patient Belongings Sent to Safe/Security Question Answer Entry Date Author Belongings Sent to Safe/Security None 09/06/20 3:38 AM Reji Kimbrough RN * Integumentary Question Answer Entry Date Author Skin Color Appropriate for ethnicity 09/08/2025 11:25 AM Lian Vo RN Skin Condition/Temp Warm 09/08/2025 1 1:25 AM Lian Vo RN Skin Integrity Abrasion 09/08/2025 11:25 AM Lian Vo RN Skin Turgor Tenting 09/08/2025 11:25 AM Lian Vo RN 4 Eyes Skin Assessment Completed Yes 09/07/2025 8:00 PM Ashley Macias RN Manual Dual Sign Off 2nd LEIGHA Hercules RN 09/07/2025 8:00 PM Ashley Macias RN Integumentary (WDL) X 09/08/2025 1 1:25 AM Lian Vo RN * Patient Belongings Sent Home Question Answer Entry Date Author Belongings Sent Home Clothing 09/08/2025 11:35 AM Lian Vo RN Clothing Sweater;Shirt;Pants 09/08/2025 11:35 AM Lian Garcia RN * Skin Assessment Question Answer Entry Date Author Scale Used Alirio 09/06/2025 12:00 PM EST Earl Yeung, RN * Score Answer Entry Date Author 11.95 09/08/2025 1:46 PM EST Karena Phan Donnie * Confusion Assessment Method (CAM) Question Answer Entry Date Author Acute Onset and Fluctuating Course (1A) No 09/08/2025 4:00 AM Ashley Macias RN * Feature 3: Altered Level of Consciousness Answer Entry Date Author Negative 09/08/2025 4:00 AM EST Sundeep Connolly RN * Sedation Scales Question Answer Entry Date Author Sedation Scale Used Khan Agitation Sedation Scale 09/08/2025 4:00 AM Ashley Macias RN RASS 0 09/08/2025 4:00 AM Ashley Macias RN * Urine Output/Assessment Question Answer Entry Date Author Urine 200 09/07/2025 9:00 PM Ashley Macias RN Unmeasured Urine Occurrence 1 09/06/2025 9: 00 AM EST Earl Saba RN * Fall Risk Calculated Score Answer Entry Date Author Eduin Low 09/08/2025 8:00 AM EST Kati Long RN * Delirium Assessment Question Answer Entry Date Author Delirium Scale Used Confusion Assessment Method 09/08/2025 4:00 AM Ashley Macias RN * Deterioration Index Score Question Answer Entry Date Author Deterioration Index Score 27.72 09/08/2025 1:31 PM EST Bean Morrison * Unplanned Readmission Scores Question Answer Entry Date Author Unplanned Readmission Score 11.94 09/08/2025 12 :01 PM EST Bean Morrison * Malnutrition Screening Tool (MST) Question Answer Entry Date Author Have you recently lost weigh t without trying? 0 09/06/2025 12:00 PM EST Earl Saba, RN Have you been eating poorly because of a decreased appetite? 0 09/06/2025 12:00 PM EST Earl James, RN * Weight Loss Score Answer Entry Date Author 0 09/06/2025 12:00 PM Donnie Brand RN * Malnutrition Score Answer Entry Date Author 0 09/06/2025 12:00 PM Donnie Brand, RN * Discharge Medication Bedside Delivery Question Answer Entry Date Author Meds to Beds Complete? Yes 11:56 AM Carrie Campuzano CPhT Current Status Prescriptions Delive red - M2B Service Complete 09/08/2025 11:56 AM Carrie Campuzano CPhT Is the patient interested in Medication Bedside Delivery at Discharge? Yes, confirmed by pharmacy 09/08/2025 11:56 AM Carrie Campuzano CPhT * Ragini Coma Scale Numeric Answer Entry Date Author 15 09/08/2025 11:25 AM Lian Vo RN * Elevate heels task - custom formula Answer Entry Date Author 1 09/08/2025 10:00 AM Lian Vo RN * Neurological Question Answer Entry Date Author Neuro Pertinent Negatives Alert and oriented x 4;Speech clear 09/07/2025 4:15 AM Brianna Sanz RN Neuro (WDL) WDL 09/07/2025 4:15 AM Brianna Sanz RN * Respiratory Question Answer Entry Date Author Respiratory Additional Assessments No 09/07/2025 4:14 AM Brianna Sanz RN * Cough Question Answer Entry Date Author Cough Present No 09/06/2025 7:00 PM Brianna Irvin RN * Vitals Timer Question Answer Entry Date Author Update Vitals Alert Interval 240 09/07/2025 1 :00 AM Nargis Cyr CNA Restart Vitals Timer Yes 09/08/2025 4:00 AM E Marcie Gottlieb Restart Vitals Timer Yes 09/07/2025 5:00 PM E Meghan Blank CNA * Hourly Rounding Question Answer Entry Date Author Activity Assistance One person assist 09/07/2025 6:09 PM Darlene Alba RN Toileting Offered and refused 09/07/2025 6 :09 PM Darlene Alba RN Call Light Call light present a nd within reach;Oriented to call light 09/07/2025 6:09 PM Darlene Alba RN Rest/ Sleep Resting 09/07/2025 6:09 PM Darlene Alba RN Rest/ Sleep Enhancement Care clustered t o minimize awakenings 09/07/2025 6:09 PM Darlene Alba RN Completed Hourly Rounding Yes 2024 6:09 PM Darlene Alba RN Plan of Care Reviewed With Patient;Family 09/07/2025 6:09 PM Darlene Alba RN * Non- Lethal Alarms Question Answer Entry Date Author Non-Lethal/Regular Alarms Leads off 09/08/2025 9:16 AM Yolie Contreras * Communication Question Answer Entry Date Author Floor Staff Notification Method Secure chat 9:16 AM Yolie Cnotreras Monitoring staff Called Floor Staff Nurse 09/08 9:16 AM Yolie Contreras * Elopement Risk Screen Question Answer Entry Date Author Does the patient exhibit any of the following behaviors? No 09/08/2025 4:00 AM Ashley Macias RN Does the patient have a cour t ordered legal guardian? Yes 09/08/2025 4:00 AM Ashley Macias RN * C-SSRS (Frequent Screener) Question Answer Entry Date Author Is patient awake, alert, and able/willing to answer questions appropriately? Yes 09/07/2025 8:00 PM Ashley Macias RN 1. Wish to be (Past 1 Month) No 025 8:00 PM Ashley Macias RN 2. Non-Specific Active Suici jon Thoughts (Past 1 Month) No 09/07/2025 8:00 PM Ashley Macias RN 6. Suicidal Behavior (Lifetime) No 8:00 PM Ashley Macias RN * Discharge Planning Continued Question Answer Entry Date Author Transportation Home at Discharge Family/Friend will Provide 09/08/2025 11:03 AM Dionne Urrutia RN * [facility] 6-Clicks Mobility Assessment Question Answer Entry Date Author Difficulty patient has turni ng over in bed (including adjusting bedclothes, sheets, and blankets)? 4 09/06/2025 12:00 PM Earl Griggs RN Difficulty patient has sitti ng down on and standing up from a chair with arms (wheelchair, bedside commode, etc.)? 4 09/06/2025 12:00 PM Leonor Brand RN Difficulty patient has movin g from lying on back to sitting on the side of the bed? 4 09/06/2025 12:00 PM Earl Brand, LEIGHA How much help does the patie nt need moving to and from a bed to a chair (including a wheelchair)? 3 09/06/2025 12:00 PM Earl Evans, RN How much help does the patie nt need to walk in hospital room? 4 09/06/2025 12:00 PM Earl Brand, LEIGHA How much help does the patie nt need climbing 3-5 steps with a railing? 3 09/06/2025 12:00 PM Earl Brand RN [facility] 6-Clicks Mobility Asse ssment Total 22 09/06/2025 12:00 PM Earl Brand RN documented in this encounter Medications at Time of Discharge albuterol 108 (90 Base) MCG/ACT inhaler Inhale 2 puffs every 4 hours as needed for wheezing or shortness of breath. 10/20/2020 aspirin 81 MG EC tablet Take 1 tablet by mouth nightly. 09/17/2020 azelastine (Astelin) 0.1 % nasal spray Administer 1 spray into each nostril 2 times a day as needed for rhinitis. Use in each nostril as directed Calcium Carbonate-Vitamin D (OYSTER SHELL CALCIUM/D PO) Take 1 tablet by mouth daily. CHOLECALCIFEROL PO Take 1,000 Units by mouth daily. furosemide (Lasix) 40 MG tablet Take 2 tablets by mouth every morning. 30 tablet 5 09/08/2025 guaiFENesin (Mucinex) 600 MG 12 hr tablet [...] time each day. 84 tablet 3 12/26/2023 oxymetazoline (Afrin) 0.05 % nasal spray Administer 2 sprays into each nostril 2 times a day as needed for congestion. Do not use for more than 3 days. Pediatric Multiple Vit-C-FA (FLINSTONES GUMMIES OMEGA-3 DHA PO) Take 2 tablets by mouth 1 (one) time each day. sodium chloride ([place]) 0.65 % nasal spray Administer 1 spray into each nostril nightly. warfarin (Coumadin) 1 MG tablet Take 1 [...] week. Take alone 3x times a week. documented as of this encounter Miscellaneous Notes * Query Clarification Note - Risa Crisostomo MD - 09/08/2025 1:46 PM EST Please review and consider documenting a diagnosis that is associated with the findings below. []Coagulopathy, unspecified [x]Other explanation, please specify []Findings not clinically significant []Clinically unable to determine Warfarin use This documentation will become part of the patient's medical record. * Discharge Summary - Risa Crisostomo MD - 09/08/2025 1:46 PM EST Images from the original note were not included. Hospitalization Admit Date/Time: 09/05/2025 10:09 PM Admitting Attending: Jasbir Khalil Discharge Date: 09/08/25 Discharge Attending Physician: Risa Crisostomo MD PCP name and Address: Espinoza Thakur MD [address] [place] [address] [address] / [place] [id number] Referring provider name and address: No referring provider defined for this encounter. Chief Concern, Brief History of Present Illness, and Hospital Course Kusum Sanchez is a 40-year-old female with a history of trisomy 21, atrial fibrillation, heart failure with mildly reduced ejection fraction (HFmrEF), status post mechanical mitral valve replacement and tricuspid annuloplasty (2010), complete heart block with biventricular pacemaker, obstructive sleep apnea on CPAP, and hypothyroidism, who was admitted on 09/05/2025 for acute hypoxic respiratoryfailure and shortness of breath. PROBLEM-ORIENTED HOSPITAL SUMMARY Shortness of Breath / Acute Hypoxic Respiratory Failure The patient presented with acute hypoxia following a period without supplemental oxygen due to a portable oxygen system malfunction, resulting in perioral cyanosis and an oxygen saturation of 68% at home, which improved after resuming oxygen therapy. On admission, she was maintaining saturations >90% on 2 L nasal cannula and was hemodynamically stable. Imaging revealed mild pulmonary edema, pulmonary vascular congestion, and probable trace bilateral pleural effusions; CT angiogram showed no pulmonary embolism. There was no evidence of overt fluid overload on exam, and viral testing (COVID-19, influenza A/B, RSV) was negative. She received IV furosemide and nebulized treatments in the ED,She was diuresed with IV furosemide and monitored with daily weights, strict intake/output, and repeat BMPs. By discharge, her shortness of breath had improved, and arrangements were made for portable oxygen at home. discharged on twice her home dose of lasix. Congenital and Valvular Heart Disease / Arrhythmia / Anticoagulation She has a history of repaired AV canal defect, mechanical mitral valve replacement, tricuspid annuloplasty, and biventricular pacemaker for complete heart block, with chronic atrial fibrillation/flutter. Echocardiogram from 06/2025 showed EF 40-50%. She was continued on warfarin for her mechanical valve, with daily INR monitoring and enoxaparin bridging due to subtherapeutic INR during hospitalization (goal INR 2.5-3.5). Aspirin and metoprolol were continued. Telemetry was used for rhythm monitoring. Obstructive Sleep Apnea She uses CPAP at night and supplemental oxygen with exertion at baseline. During hospitalization, she resumed CPAP at night with consideration of oxygen bleed- in as needed to maintain saturations. Obesity Her BMI is 44.93 kg/m??, which complicates all aspects of care. Hypothyroidism She was continued on levothyroxine during hospitalization. Discharge Planning She was medically ready for discharge after diuresis and improvement in respiratory status, with arrangements for portable oxygen at home and follow-up with her PCP and specialists. She lives with her mother, who provides 24/7 assistance. No other acute issues or complications were documented during this admission. No notes on file Surgeries and Procedures Medication List .. albuterol 108 (90 Base) MCG/ACT inhaler Inhale 2 puffs every 4 hours as needed for wheezing or shortness of breath. aspirin 81 MG EC tablet Take 1 tablet by mouth nightly. azelastine 0.1 % nasal spray Commonly known as: Astelin Administer 1 spray into each nostril 2 times a day as needed for rhinitis. Use in each nostril as directed CHOLECALCIFEROL PO Take 1,000 Units by mouth daily. FLINSTONES GUMMIES OMEGA-3 DHA PO Take 2 tablets by mouth 1 (one) time each day. furosemide 40 MG tablet Commonly known as: Lasix Take 2 tablets by mouth every morning. guaiFENesin 600 MG 12 hr tablet Commonly known as: Mucinex Take 2 tablets by mouth 2 times a day as needed for cough or congestion. Do not crush, chew, or split. levothyroxine 125 MCG tablet Commonly known as: Synthroid, Levoxyl Take 1 tablet by mouth daily before breakfast. metoprolol succinate XL 25 MG 24 hr tablet Commonly known as: Toprol-XL Take 0.5 tablets by mouth daily. montelukast 10 MG tablet Commonly known as: Singulair Take 1 tablet by mouth nightly. norethindrone 0.35 MG tablet Commonly known as: Micronor Take 1 tablet (0.35 mg) by mouth 1 (one) time each day. oxymetazoline 0.05 % nasal spray Commonly known as: Afrin Administer 2 sprays into each nostril 2 times a day as needed for congestion. Do not use for more than 3 days. OYSTER SHELL CALCIUM/D PO Take 1 tablet by mouth daily. sodium chloride 0.65 % nasal spray Commonly known as: [place] Administer 1 spray into each nostril nightly. * warfarin 6 MG tablet Commonly known as: Coumadin Take 1 tablet by mouth daily. Take as directed per After Visit Summary. Take with 1mg of warfarin at 1700 4x times a week. Take alone 3x times a week. * warfarin 1 MG tablet Commonly known as: Coumadin Take 1 tablet by mouth 4 times a week. Combine with 1 tablet of Warfarin 6mg for 7mg total on 4 days of each week, alternating with 6mg doses. * This list has 2 medication(s) that are the same as other medications prescribed for you. Read thedirections carefully, and ask your doctor or other care provider to review them with you. Where to Get Your Medications These medications were sent to [facility] - [place], [place] - [address] [facility] [id number] furosemide 40 MG tablet Discharge Diagnosis Medical Problems Active and Resolved Hospital Problems Hospital * (Principal) Shortness of breath Post Discharge Instructions FU with PCP , cardiology and repeat labs Outpatient Follow-Up Future Appointments Date Time Provider Department Center 09/10/2025 1:00 PM Tanja Parsons MD [facility] 09/25/2025 1:00 PM Jesse Moffett MD [facility] 09/28/2025 11:30 AM [facility] 10/22/2025 1:40 PM Lavern Galdamez APRN [facility] 02/08/2026 12:30 PM Emi Orozco PA [facility] 02/10/2026 12:20 PM Hannah Tang MD [facility] 2026 1:00 PM [facility] 2026 2:40 PM Jordon Tidwell MD [facility] Test Results Pending At Discharge Pertinent Physical Exam At Time of Discharge Physical Exam Cardiovascular: Rate and Rhythm: Normal rate and regular rhythm. Pulmonary: Effort: Pulmonary effort is normal. Breath sounds: Normal breath sounds. Comments: On nasal cannula Abdominal: Palpations: Abdomen is soft. Musculoskeletal: Right lower leg: No edema. Left lower leg: No edema. Neurological: Mental Status: She is oriented to person, place, and time. Discharge Disposition/Condition Disposition: Home Condition: Stable (s/sx potential problems absent or manageable) I spent >30 minutes of patient care and instruction time in preparation for this discharge. * Lian Wade RN - 09/08/2025 11:41 AM EST Images from the original note were not included. [id number] Low-Salt Choices Eating salt (sodium) can make your body hold on to too much water. Extra water makes your heart work harder. Canned, packaged, and frozen foods are easy to prepare. But they are often high in sodium.Here are some ideas for low-salt foods that you can easily make yourself. For breakfast ? Fruit or 100% fruit juice. It's better to have whole fruit instead of 100% fruit juice. ? Low-sodium whole wheat bread or an Ivorian muffin. Look for sodium content on Nutrition Facts labels. ? Low-fat milk or yogurt ? Unsalted eggs ? Shredded wheat ? [place] tortillas ? Unsalted steamed rice ? Regular (not instant) hot cereal, made without salt Stay away from ? Sausage, ayers, and ham ? Flour tortillas ? Packaged muffins, pancakes, and biscuits ? Instant hot cereals ? Cottage cheese For lunch and dinner ? Fresh fish, chicken, turkey, or meat--baked, broiled, or roasted without salt ? Dry beans, cooked without salt ? Tofu, stir-fried without salt ? Unsalted fresh fruit and vegetables, or frozen or canned fruit and vegetables with no added salt Stay away from ? Lunch or deli meat that's cured or smoked ? Cheese ? Tomato juice and ketchup ? Canned vegetables, soups, and fish not labeled as [id number] or reduced sodium ? Packaged gravies and sauces ? Olives, pickles, and relish ? Bottled salad dressings For snacks and desserts ? Yogurt ? Low-salt or tk-zzcm-yvvyv granola ? Fresh fruit and vegetables ? Unsalted, air-popped popcorn ? Unsalted nuts or seeds Stay away from ? Pies and cakes ? Packaged dessert mixes ? Pizza ? Canned and packaged puddings ? Pretzels, chips, crackers, and nuts--unless the label says unsalted Last Reviewed Date: 2025 00:00:00 ?? [employer]. All rights reserved. This information is not intended as a substitute for professional medical care. Always follow your healthcare professional's instructions. * Miroslavauna Adan - Lian Long RN - 09/08/2025 11:41 AM EST Images from the original note were not included. [id number] Low Salt Diet - 2 Grams a Day This diet eliminates foods that are high in salt and restricts the amount of salt that you cook with. It is most often used for patients with high blood pressure, edema (fluid retention), kidney, liver and heart disease. One teaspoon of salt is 2000 mg (2 grams). This is the total amount you are allowed per day. You may use a small amount of salt when cooking, but do not add salt to your foods at the table (throw away the salt shaker!). Shop for foods that say Salt-Free, Low Salt or Very Low Salt. Reduced Salt may not be enough. Read the labels, which will show salt as SODIUM . A 2000 mg sodium diet means you can have about 700 mg of sodium per meal. If you only eat 3 meals per day. This amount will need to be adjusted if you eatmore than 3 meals per day or eat 3 meals + some snacks throughout the day. Beverages OK: Tea, coffee, carbonated beverages (if drinking soda, choose diet soda), juices Avoid: Flavored international coffees, electrolyte replacement drinks, sports beverages like Gatorade or Powerade Bread and Cereals OK: All regular bread, rolls, cereals; low salt crackers, matzoh crackers Avoid: Salted crackers, pretzels, popcorn; palauan toast, pancakes, commercial muffins Fruits and Desserts OK: Ice cream, frozen yogurt, juice bars, gelatin (Jell-O), low salt cookies and pies, sugar, honey, jelly, hard candy, marshmallows Avoid: Most pies, cakes and cookies prepared or processed with salt, instant pudding Meats OK: All fresh meat, fish, poultry, low salt tuna Avoid: Smoked, pickled, brine cured or salted meats, fish or poultry -- including ayers, bologna, chipped beef, corned beef, hot dogs, luncheon meats, ham, kosher meats, salt pork, sausages, smoked fish (walden, sardines, anchovies, salted codfish), regular tuna Dairy OK: Milk, chocolate milk, hot chocolate mix; eggs, Low Salt cheeses, yogurt, egg substitute Avoid: Processed cheese, cheese spreads, [place]ef[place], [place] and cottage cheese, buttermilk, instant breakfast drink Potatoes and pasta OK: Dried beans, split peas, lentils, potatoes, rice, macaroni, noodles, spaghetti without added salt Avoid: Potato chips, tortilla chips and similar products Soups OK: Low salt soups and broths made with allowed foods Avoid: Bouillon cubes, soups with smoked or salted meats, regular soup and broth Vegetables OK: Most are okay; choose low salt tomato and vegetable juices Avoid: Sauerkraut and other brine-soaked vegetables, pickles and other pickled vegetables, tomato juice, olives Seasoning and spices OK: There are lots of seasonings that can be used as good substitutes for salt. Good substitutes for salt include: fresh herb blends, Mrs. Dash seasoning, Tabasco, lemon, garlic (not garlic salt), bacon, vinegar, dry mustard, parsley, cilantro, horseradish, tomato paste, regular margarine, mayonnaise, unsalted butter, cream cheese, vegetable oil, cream, low salt salad dressing and gravy Avoid: Regular katchup, relishes, pickles, soy sauce, teriyaki sauce, Worcestershire sauce, BBQ sauce, tartar sauce, meat tenderizer, chili sauce, regular gravy, regular salad dressing. Avoid any seasoning blends made with salt, such as cajun seasoning, garlic salt, etc. Always read your food labels to make sure you don?t over-consume salt. [Modified from Diet Manual, Clinical Center, National Institutes of Health] ?? [employer]. All rights reserved. This information is not intended as a substitute for professional medical care. Always follow your healthcare professional's instructions. This information has been modified by your health care provider with permission from the publisher. * Sharri Arellano - Lian Long RN - 09/08/2025 11:41 AM EST Images from the original note were not included. [id number] Tips for Using Less Salt Most people with heart problems need to eat less salt (sodium). Reducing the amount of salt you eatmay help control your blood pressure. The higher your blood pressure, the greater your risk for heart disease, stroke, blindness, and kidney problems. At the store ? Make low-salt choices by reading labels carefully. Look for the total amount of sodium per serving. ? Use more fresh food. Buy more fruits and vegetables. Select lean meats, fish, and poultry. ? Use fewer frozen, canned, and packaged foods, which often contain a lot of sodium. ? Use plain frozen vegetables without sauces or toppings. These products are often low-sodium or no-sodium. ? Choose reduced-sodium or re-biok-roinh versions of condiments, canned vegetables, broths, and soups. ? Choose unsalted nuts and seeds. In the kitchen ? Don't add salt to food when you're cooking. Season with flavorings like spices, herbs, vinegar, onion, garlic, pepper, salt-free herbal blends, and lemon or [place] juice. ? Use a cookbook that has low-salt recipes. It can give you ideas for tasty meals that are healthy for your heart. ? Sprinkle spices, herbs, or salt-free herbal blends on vegetables and meat. ? Drain and rinse canned foods, such as canned beans and vegetables, before you cook or eat them. ? Remove the salt shaker from the table. Eating out ? Tell the hammer driver you're on a low-salt diet. Ask questions about the menu. ? Order fish, chicken, and meat broiled, baked, poached, or grilled without salt, butter, or breading. ? Use lemon, pepper, and salt-free herb mixes to add flavor. ? Choose plain steamed vegetables, rice, boiled noodles, and baked or boiled potatoes. Top potatoeswith chives and a little sour cream. Reading food labels to limit salt Beware! Salt goes by many other names. Limit foods with these words listed as ingredients: salt, sodium, soy sauce, baking soda, baking powder, MSG, monosodium, and Na (the chemical symbol for sodium). Some antacids are also high in salt. Last Reviewed Date: 2025 00:00:00 ?? 9420-3737 [employer]. All rights reserved. This information is not intended as a substitute for professional medical care. Always follow your healthcare professional's instructions. * Sharri OnFHIR - Lian Long RN - 09/08/2025 11:41 AM EST Images from the original note were not included. Heart Failure: Limiting Sodium - Video To view the video go to this web address: [email or web address] Or, scan this QR code with your smart phone ?? [facility] * Progress Notes - Dionne Spear RN - 09/08/2025 11:08 AM EST Case Management Discharge Note Sharona Sanchez 40 y.o. female CSN: [id number] Admission: 09/05/2025 10:09 PM Primary Problem: Shortness of breath Primary Medical Hospital Sales: Primary Caregiver: Family Assistance Available at Discharge: Current Outpatient/Agency/Support Group: [facility] Availability of Care Givers (#Hours): 24 hours (lives with mother who is available 23/04) Family/Medical Hospital Sales(s) Willingness Assessed to care for patient at home: Yes Family/Medical Hospital Sales(s) Readiness Assessed to care for patient at home: Yes Housing Circumstances-Z Codes: Housing Circumstances (select all that apply): None Applicable Patient Referred to Financial or Community Resources: No referrals needed at this time. Discharge Facility/Level of Care Needs: Discharge Facility/Level of Care Needs: 1-Home or Self Care Patient's Choice of Community Agency(s): Patient's Choice of Community Agency(s): Current with [facility] Patient/Family Anticipated Services at Transition: Patient/Family Anticipated Services at Transition: outpatient care, durable medical equipment (Portable Oxygen to be delivered to hospital for discharge by [facility]. Will followup with PCP.) DME/Equipment Needed after Discharge: Equipment Currently Used at Home: Cpap, oxygen ([facility]) Equipment Needed After Discharge: oxygen (Portable oxygen tank for discharge arranged through [facility].) Readmission Within the Last 30 Days: Readmission Within the Last 30 Days: no previous admission in last 30 days Medicare Documentation: Medicare Second Notice?: Yes Date Second Notice Completed: 09/08/25 Time Second Notice Completed: 939 Medicare Second Notice Recieved By: patients sister Follow-up: Jordon Tidwell MD [address] [place] [phone] [facility] provides oxygen and CPAP. Discharge Transportation: Transportation Anticipated: family or friend will provide Transportation Home at Discharge: Family/Friend will Provide Has discharge transport been arranged?: Yes (Family will transport (sister).) What day is the transport expected?: 09/08/25 What time is the transport expected?: 1300 Follow Up Transport: Transportation Needed to Follow up Appoinments: Family/Friend will Provide Additional Comments: Plan of Care and Discharge Plan reviewed with care team this am. Patient was admitted on 09/05 with SOB. Having pulmonary edema. Diuresed and improved. Per , ot medically ready for discharge. Portable oxygen tank for transport arranged with Marycarmen at [place]. Should be delivered by 1 pm. Will fax DC summary to PCP when available. No other discharge needs communicated. Dionne Spear RN * Sharri Arellano - NayeliShaynaLee Ann roberts, PharmD - 09/08/2025 11:00 AM EST Images from the original note were not included. [id number] Warfarin IMPORTANT WARNING: Warfarin may cause severe bleeding that can be life-threatening and even cause . Tell your doctor if you have or have ever had a blood or bleeding disorder; bleeding problems, especially in yourstomach or your esophagus (tube from the throat to the stomach), intestines, urinary tract or bladder, or lungs; high blood pressure; heart attack; angina (chest pain or pressure); heart disease; pericarditis (swelling of the lining (sac) around the heart); endocarditis (infection of one or more heart valves); a stroke or ministroke; aneurysm (weakening or tearing of an artery or vein); anemia (low number of red blood cells in the blood); cancer; chronic diarrhea; or kidney, or liver disease. Also tell your doctor if you fall often or have had a recent serious injury or surgery. Bleeding is more likely during warfarin treatment for people over 65 years of age, and it is also more likely during the first month of warfarin treatment. Bleeding is also more likely to occur for people who take high doses of warfarin, or take this medication for a long time. The risk for bleeding while takingwarfarin is also higher for people participating in an activity or sport that may result in seriousinjury. Tell your doctor and pharmacist if you are taking or plan to take any prescription or nonprescription medications, vitamins, nutritional supplements, and herbal or botanical products (See SPECIAL PRECAUTIONS), as some of these products may increase the risk for bleeding while you are takingwarfarin. If you experience any of the following symptoms, call your doctor immediately: pain, swelling, or discomfort, bleeding from a cut that does not stop in the usual amount of time, nosebleeds or bleeding from your gums, coughing up or vomiting blood or material that looks like coffee grounds, unusual bleeding or bruising, increased menstrual flow or vaginal bleeding, pink, red, or dark brown urine, red or tarry black bowel movements, headache, dizziness, or weakness. Some people may respond differently to warfarin based on their heredity or genetic make-up. Your doctor may order a blood test to help find the dose of warfarin that is best for you. Warfarin prevents blood from clotting so it may take longer than usual for you to stop bleeding if you are cut or injured. Avoid activities or sports that have a high risk of causing injury. Call your doctor if bleeding is unusual or if you fall and get hurt, especially if you hit your head. Keep all appointments with your doctor and the laboratory. Your doctor will order a blood test (PT [prothrombin test] reported as INR [international normalized ratio] value) regularly to check your body's response to warfarin. If your doctor tells you to stop taking warfarin, the effects of this medication may last for 2 to 5 days after you stop taking it. Your doctor or pharmacist will give you the embossing press operator apprentice's patient information sheet (Medication Guide) when you begin treatment with warfarin and each time you refill your prescription. Read the information carefully and ask your doctor or pharmacist if you have any questions. You can also visit the Food and Drug Administration (FDA) website (https://www.fda.gov/downloads/Drugs/DrugSafety/cpk064722.pdf) or the embossing press operator apprentice's website to obtain the Medication Guide. Talk to your doctor about the risk(s) of taking warfarin. WHY is this medicine prescribed? Warfarin is used to prevent blood clots from forming or growing larger in your blood and blood vessels. It is prescribed for people with certain types of irregular heartbeat, people with prosthetic (replacement or mechanical) heart valves, and people who have suffered a heart attack. Warfarin is also used to treat or prevent venous thrombosis (swelling and blood clot in a vein) and pulmonary embolism (a blood clot in the lung). Warfarin is in a class of medications called anticoagulants ('bloodthinners'). It works by decreasing the clotting ability of the blood. HOW should this medicine be used? Warfarin comes as a tablet to take by mouth. It is usually taken once a day with or without food. Take warfarin at around the same time every day. Follow the directions on your prescription label carefully, and ask your doctor or pharmacist to explain any part you do not understand. Take warfarin exactly as directed. Do not take more or less of it or take it more often than prescribed by your doctor. Call your doctor immediately if you take more than your prescribed dose of warfarin. Your doctor will probably start you on a low dose of warfarin and gradually increase or decrease your dose based on the results of your blood tests. Make sure you understand any new dosing instructions from your doctor. Continue to take warfarin even if you feel well. Do not stop taking warfarin without talking to your doctor. Are there OTHER USES for this medicine? This medication may be prescribed for other uses; ask your doctor or pharmacist for more information. What SPECIAL PRECAUTIONS should I follow? Before taking warfarin, ? tell your doctor and pharmacist if you are allergic to warfarin, any other medications, or any ofthe ingredients in warfarin tablets. Ask your pharmacist or check the Medication Guide for a list of the ingredients. ? do not take two or more medications that contain warfarin at the same time. Be sure to check withyour doctor or pharmacist if you are uncertain if a medication contains warfarin or warfarin sodium. ? tell your doctor and pharmacist what prescription and nonprescription medications, vitamins, and nutritional supplements you are taking or plan to take while taking warfarin. Your doctor may changethe doses of your medications or monitor you carefully for side effects. ? the following nonprescription or herbal products may interact with warfarin: coenzyme Q10 (Ubidecarenone), Echinacea, garlic, Ginkgo biloba, ginseng, goldenseal, and Sofi's wort; omeprazole (Prilosec); famotidine (Pepcid AC); aspirin and nonsteroidal anti-inflammatory drugs (NSAIDS) such as ibuprofen (Advil, Motrin, others) and naproxen (Aleve). Be sure to let your doctor and pharmacist know that you are taking these medications before you start taking warfarin. Do not start any of these medications while taking warfarin without discussing with your healthcare provider. ? tell your doctor if you have or have ever had diabetes. Also tell your doctor if you have an infection, a gastrointestinal illness such as diarrhea, or sprue (an allergic reaction to protein found in grains that causes diarrhea), or an indwelling catheter (a flexible plastic tube that is placed into the bladder to allow the urine to drain out). ? Tell your doctor if you are , think you might be , or plan to become while taking warfarin. women should not take warfarin unless they have a mechanical heart valve. Talk to your doctor about the use of effective control while taking warfarin. If you become while taking warfarin, call your doctor immediately. Warfarin may harm the fetus. ? tell your doctor if you are breast-feeding. ? if you are having surgery, including dental surgery, or any type of medical or dental procedure, tell the doctor or dentist that you are taking warfarin. Your doctor may tell you to stop taking warfarin before the surgery or procedure or change your dosage of warfarin before the surgery or procedure. Follow your doctor's directions carefully and keep all appointments with the laboratory if yourdoctor orders blood tests to find the best dose of warfarin for you. ? ask your doctor about the safe use of alcoholic beverages while you are taking warfarin. ? tell your doctor if you use tobacco products. Cigarette smoking may decrease the effectiveness ofthis medication. What SPECIAL DIETARY instructions should I follow? Eat a normal, healthy diet. Some foods and beverages, particularly those that contain vitamin K, can affect how warfarin works for you. Ask your doctor or pharmacist for a list of foods that contain vitamin K. Eat consistent amounts of vitamin K-containing food on a dgxc-ox-cjdq basis. Do not eat large amounts of leafy, green vegetables or certain vegetable oils that contain large amounts of vitamin K. Be sure to talk to your doctor before you make any changes in your diet. Talk to your doctor about eating grapefruit and drinking grapefruit juice while taking this medication. What should I do IF I FORGET to take a dose? Take the missed dose as soon as you remember it, if it is the same day that you were to take the dose. Do not take a double dose the next day to make up for a missed one. Call your doctor if you adolfo dose of warfarin. What SIDE EFFECTS can this medicine cause? If you experience any of the following symptoms, or those listed in the IMPORTANT WARNING section, call your doctor immediately: ? hives ? rash ? itching ? difficulty breathing or swallowing ? swelling of the face, throat, tongue, lips, or eyes ? hoarseness ? chest pain or pressure ? swelling of the hands, feet, ankles, or lower legs ? fever ? infection ? nausea ? vomiting ? diarrhea ? extreme tiredness ? lack of energy ? loss of appetite ? pain in the upper right part of the stomach ? yellowing of the skin or eyes ? flu-like symptoms You should know that warfarin may cause necrosis or gangrene ( of skin or other body tissues).Call your doctor immediately if you notice a purplish or darkened color to your skin, skin changes,ulcers, or an unusual problem in any area of your skin or body, or if you have a severe pain that occurs suddenly, or color or temperature change in any area of your body. Call your doctor immediately if your toes become painful or become purple or dark in color. You may need medical care right away to prevent amputation (removal) of your affected body part. Warfarin may cause other side effects. Call your doctor if you have any unusual problems while taking this medication. What should I know about STORAGE and DISPOSAL of this medication? Keep this medication in the container it came in, tightly closed, and out of reach of children. Store it at room temperature and away from excess heat, moisture (not in the bathroom), and light. Dispose of unneeded medications in a way so that pets, children, and other people cannot take them.Do not flush this medication down the toilet. Use a medicine take-back program. Talk to your pharmacist about take-back programs in your community. Visit the FDA's Safe Disposal of Medicines website h ttps://goo.gl/c4Rm4p for more information. Keep all medication out of sight and reach of children as many containers are not child-resistant. Always lock safety caps. Place the medication in a safe location - one that is up and away and out of their sight and reach. https://www.upandaway.org What should I do in case of OVERDOSE? In case of overdose, call the poison control helpline at . Information is also available online at https://www.poisonhelp.org/help. If the victim has collapsed, had a seizure, has trouble breathing, or can't be awakened, immediately call emergency services at 634. Symptoms of overdose may include the following: ? bloody or red, or tarry bowel movements ? spitting or coughing up blood ? heavy bleeding with your menstrual period ? pink, red, or dark brown urine ? coughing up or vomiting material that looks like coffee grounds ? small, flat, round red spots under the skin ? unusual bruising or bleeding ? continued oozing or bleeding from minor cuts What OTHER INFORMATION should I know? Carry an identification card or wear a bracelet stating that you take warfarin. Ask your pharmacistor doctor how to obtain this card or bracelet. List your name, medical problems, medications and dosages, and doctor's name and telephone number on the card. Tell all your healthcare providers that you take warfarin. Do not let anyone else take your medication. Ask your pharmacist any questions you have about refilling your prescription. Keep a written list of all of the prescription and nonprescription (bvft-gwk-kdgbqkw) medicines, vitamins, minerals, and dietary supplements you are taking. Bring this list with you each time you visit a doctor or if you are admitted to the hospital. You should carry the list with you in case of janis rgencies. Brand Name(s): ? Coumadin?? ? Jantoven?? also available generically This report on medications is for your information only, and is not considered individual patient advice. Because of the changing nature of drug information, please consult your physician or pharmacist about specific clinical use. The [place] [employer] represents that the information provided hereunder was formulated with a reasonable standard of care, and in conformity with professional standards in the field. The [place] [employer] makes no representations or warranties, express or implied, including, but not limited to, any implied warranty of merchantability and/or fitness for a particular purpose, with respect to such information and specifically disclaims all such warranties. Users are advised that decisions regarding drug therapy are complex medical decisions requiring the independent, informed decision of an appropriate health care transport nurse, and the information is provided for informational purposes only. The entire monograph for a drug should be reviewed for a thorough understanding of the drug's actions, uses and side effects. The [place] [employer] does not endorse or recommend the use of any drug.The information is not a substitute for medical care. AHFS?? Patient Medication Information?. ?? Copyright, 2023. The [place] [employer]??, [address], [address], [place], [place]. All Rights Reserved. Duplication for commercial use must be authorized by [facility]. Selected Revisions: March 15, 2017. AHFS?? Patient Medication Information?. ?? Copyright, 2024 * Progress Notes - Lee Ann David, PharmD - 09/08/2025 10:46 AM EST Antithrombosis Monitoring: Warfarin Kusum Sanchez is a 40 y.o. female who has been continued on warfarin. Warfarin Indication & Goal Anticoagulation Indication/Goal Warfarin Indication: Mechanical mitral valve Duration of Anticoagulation: Indefinite Target INR: 2.5-3.5 Warfarin Prior to Admission: Yes Prior to Admission Daily Warfarin Regimen: (7 mg x 4 days) + (6 mg x 3 days)--> no specific daysper family (alternating) Prior to Admission Weekly Warfarin Dose: 46 mg Assessment Warfarin Drug Interactions Increased Bleeding Risk: Low Molecular Weight Heparin Interacting medications started/stopped in past 72 hours?: No Any warfarin reversal given?: No Anticoagulation Assessment Warfarin Sensitivity Risk Factors: Acute decompensated heart failure Warfarin Sensitivity Score: High (1 or more Warfarin Sensitivity Risk Factors) Nutritional Intake: Normal PO Intake Today's INR : Subtherapeutic Warfarin INR & Dose Trends Date INR Warfarin Dose (mg) Comments 09/05 2.2 7 mg 09/06 2.1 6 mg Enoxaparin 100 mg BID 09/07 2.5 7mg Enoxaparin 100mg BID 09/08 2.4 6mg (ordered) Enoxaparin 100mg BID Anticoagulation Plan Warfarin Pharmacist Managed?: Yes Warfarin Plan: Continue current dose Specify Warfarin Dose: Warfarin 6mg every other day alternating with warfarin 7mg every other day [facility] Warfarin Dosing Protocol Followed?: Yes Bridging Agent in Conjunction With Warfarin? : Yes Ordered Agents: Enoxaparin Bridging Agent Dose: Enoxaparin 100mg subQ Q12hrs INR Monitoring Frequency: Monitor INR daily Patient Education : Complete Will continue to follow patient's clinical progress daily. Lee Ann David PharmD 09/08/2025 10:45 AM * Care Plan - Lian Long RN - 09/08/2025 7:37 AM EST Problem: Adult Inpatient Plan of Care Goal: Plan of Care Review Outcome: Ongoing, Progressing Flowsheets (Taken 09/08/2025 07) Progress: improving Outcome Evaluation: poc reviewed Plan of Care Reviewed With: patient caregiver Goal: Patient-Specific Goal (Individualized) Outcome: Ongoing, Progressing Flowsheets (Taken 09/08/2025 07) Patient/Family-Specific Goals (Include Timeframe): free from falls Individualized Care Needs: safety Anxieties, Fears or Concerns: o2 needs Goal: Absence of Hospital-Acquired Illness or Injury Outcome: Ongoing, Progressing Goal: Optimal Comfort and Wellbeing Outcome: Ongoing, Progressing Problem: Pulmonary Impairment Goal: Improved Activity Tolerance Outcome: Ongoing, Progressing Goal: Effective Airway Clearance Outcome: Ongoing, Progressing Goal: Optimal Gas Exchange Outcome: Ongoing, Progressing * Care Plan - Ashley Connolly RN - 09/08/2025 5:33 AM EST Problem: Adult Inpatient Plan of Care Goal: Plan of Care Review Outcome: Ongoing, Progressing Flowsheets (Taken 09/08/2025 05) Progress: improving Outcome Evaluation: plan of care reviewed with pt and family Plan of Care Reviewed With: patient family Goal: Patient-Specific Goal (Individualized) Outcome: Ongoing, Progressing Flowsheets (Taken 09/07/20251999) Patient/Family-Specific Goals (Include Timeframe): pt will remain free of injury throughout shift Individualized Care Needs: safety Anxieties, Fears or Concerns: oxygen needs Goal: Absence of Hospital-Acquired Illness or Injury Outcome: Ongoing, Progressing Intervention: Identify and Manage Fall Risk Flowsheets (Taken 09/08/2025 0400) Safety Promotion/Fall Prevention: activity supervised assistive device/personal items within reach clutter-free environment maintained fall prevention program maintained lighting adjusted mobility aid in reach nonskid shoes/slippers when out of bed room organization consistent safety round/check completed toileting scheduled Intervention: Prevent Skin Injury Flowsheets Taken 09/08/2025530 Skin Protection: incontinence pads utilized protective footwear used pulse oximeter probe site changed silicone foam dressing in place skin sealant/moisture barrier applied transparent dressing maintained Taken 09/08/2025 0400 Body Position: weight shifting Intervention: Prevent and Manage VTE (Venous Thromboembolism) Risk Flowsheets (Taken 09/08/2025 0400) VTE Prevention/Management: bilateral SCDs (sequential compression devices) off medication Intervention: Prevent Infection Flowsheets (Taken 09/08/2025530) Infection Prevention: environmental surveillance performed equipment surfaces disinfected hand hygiene promoted personal protective equipment utilized rest/sleep promoted single patient room provided Goal: Optimal Comfort and Wellbeing Outcome: Ongoing, Progressing Intervention: Monitor Pain and Promote Comfort Flowsheets (Taken 09/07/20252019) Pain Management Interventions: pain management plan reviewed with patient/caregiver Intervention: Provide Person-Centered Care Flowsheets (Taken 09/08/2025530) Trust Relationship/Rapport: care explained choices provided emotional support provided empathic listening provided questions answered questions encouraged reassurance provided thoughts/feelings acknowledged Problem: Pulmonary Impairment Goal: Improved Activity Tolerance Outcome: Ongoing, Progressing Intervention: Facilitate Activity Tolerance Flowsheets (Taken 09/08/2025530) Energy Conservation Techniques: asking for necessary assistance promoted breathing techniques encouraged correct body mechanics utilized correct posture facilitated equipment and device use facilitated prioritizing activities promoted regular rest breaks encouraged relaxation techniques promoted Goal: Effective Airway Clearance Outcome: Ongoing, Progressing Intervention: Promote Airway Secretion Clearance Flowsheets (Taken 09/08/2025530) Airway Clearance/Ventilation Strategies: deep breathing exercises oxygen therapy in use Goal: Optimal Gas Exchange Outcome: Ongoing, Progressing Intervention: Optimize Oxygenation and Ventilation Flowsheets (Taken 09/08/2025530) Airway Clearance/Ventilation Strategies: deep breathing exercises oxygen therapy in use * Progress Notes - Dionne Spear RN - 09/07/2025 2:25 PM EST Case Management Adult Initial Progress Note Sharona Sanchez 40 y.o. female CSN: [id number] Admission: 09/05/2025 10:09 PM Primary Problem: Shortness of breath Residential Concierge reviewed chart and spoke with patient and patient's mother at bedside to complete thisInitial Case Management Assessment. Patient with Trisomy 21, but able to answer almost all questions appropriately. PCP: Espinoza Thakur MD Emergency Contact: Extended Emergency Contact Information Primary Emergency Contact: LAISHA MAGALLON Mobile Relation: Sister Preferred language: Ivorian Secondary Emergency Contact: Chelsy Sanchez Relation: Mother Insurance: Primary Visit Coverage Payer Plan Sponsor Code Group Number Group Name MEDICARE MEDICARE A & B -- -- -- Primary Visit Coverage Subscriber Subscriber ID Subscriber Name Subscriber SSN Subscriber Address [id number] SHARONA SANCHEZ Katt [id number] [address] [place] [address] Secondary Visit Coverage Payer Plan Sponsor Code Group Number Group Name [employer] MEDICARE SUPPLEMENT -- -- -- Secondary Visit Coverage Subscriber Subscriber ID Subscriber Name Subscriber SSN Subscriber Address [id number] SHARONA SANCHEZ YOVANY [phone] [address] [place] [address] Patient information: Primary Caregiver: Family Accompanied by/Relationship: mother Support System: Immediate family Daily Living Activities: Functional Status: Moderate assistance (mother assists with bathing, some dressing) Living Arrangements: Parent/Gaurdian (Lives with mother) Type of Residence: Private residence, Single Level (zero entry steps) [address] [facility] Smoker in the Home?: No Current DME: Equipment Currently Used at Home: oxygen, Cpap ([employer] provides oxygen and CPAP) Income Information: Income Source: Disabled Income/Expense Information: Income meets expenses Current Resources Utilized: None Housing Circumstances-Z Codes: Housing Circumstances (select all that apply): None Applicable Patient Referred to: No referrals at this time. Anticipated Discharge Date: 09/09/25 Patient's Discharge Goal: home Assistance Available at Discharge: Mother available 23/04 Discharge Transport: family Follow Up Transport: family Home Health / Home Infusion / Outpatient Dialysis Services: Denies HH, HD and HI Living Will/Advance Directive/Power of Jewelry Drill Operator /Guardian: Have you reviewed your Advance Directive and is it valid for this stay?: No Information Provided on Healthcare Directives: No Pre-existing DNR/DNI Order: No Additional Comments: Plan of Care and Discharge Plan reviewed with care team this am. Patient was admitted on 09/05 with SOB. Having pulmonary edema. Diuresing. Per MD, not medically ready for discharge. Anticipate 09/09. CM will continue to follow for discharge needs. Dionne Spear RN * Progress Notes - Armando Dickinson MD - 09/07/2025 11:41 AM EST Subjective SOB is improving Review of Systems Constitutional: Negative for fever. Respiratory: Negative for cough and shortness of breath. Genitourinary: Negative for dysuria. Neurological: Negative for headaches. Objective Vitals Temp: [36.5 ??C (97.7 ??F)-36.6 ??C (97.8 ??F)] 36.6 ??C (97.8 ??F) Heart Rate: [70-74] 71 Resp: [-25] 17 BP: (106-141)/(53-67) 106/53 Physical Exam Constitutional: Appearance: Normal appearance. Cardiovascular: Rate and Rhythm: Normal rate and regular rhythm. Heart sounds: No murmur heard. No gallop. Pulmonary: Effort: No respiratory distress. Breath sounds: No wheezing. Comments: 2L NC Abdominal: General: There is no distension. Palpations: Abdomen is soft. Tenderness: There is no abdominal tenderness. Musculoskeletal: Right lower leg: No edema. Left lower leg: No edema. Skin: General: Skin is warm and dry. Neurological: Mental Status: She is alert. Assessment & Plan Shortness of breath 40 yo F with Pmhx of trisomy 21, AV canal defect S/P repair 1986, S/P mechanical [employer] Elijah MVR + Tricuspid annuloplasty 2010 with post op course complicated by CHB requiring implant of [employer] Elijah BiVentricular Pacemaker and chronic atrial flutter who presented to us with AHRF due to pulmonary edema AHRF Pulmonary edema - baseline needing 2L NC nightly only, currently needing 2L at all time. Tried weaning to room air today and dropped to 90-91% - CTPE 09/06 with mild pulmonary edema - TTE 06/25 with EF of 40-50% Plan: - will give another 40mg IV lasix today (at home she takes 40mg po lasix daily) and assess UOP accurately - wean oxygen as able, will plan to wean off oxygen, but if unable, may need to send with home oxygen (patient has oxygen at home that she uses nightly at this time) Hx of mechanical MVR Hx of CHB S/p PPM A flutter - continue warfarin - as INR is subtherapeutic, bridge with lovenox (goal INR 2.5-3.5) - continue baby asa, metoprolol Medically Ready for Discharge:Anticipated in 2-4 Days * Progress Notes - Lee Ann David PharmD - 09/07/2025 10:25 AM EST Antithrombosis Monitoring: Warfarin Kusum Sanchez is a 40 y.o. female who has been continued on warfarin. Warfarin Indication & Goal Anticoagulation Indication/Goal Warfarin Indication: Mechanical mitral valve Duration of Anticoagulation: Indefinite Target INR: 2.5-3.5 Warfarin Prior to Admission: Yes Prior to Admission Daily Warfarin Regimen: (7 mg x 4 days) + (6 mg x 3 days)--> no specific daysper family (alternating) Prior to Admission Weekly Warfarin Dose: 46 mg Assessment Warfarin Drug Interactions Increased Bleeding Risk: Aspirin;Low Molecular Weight Heparin Interacting medications started/stopped in past 72 hours?: No Any warfarin reversal given?: No Anticoagulation Assessment Warfarin Sensitivity Risk Factors: Acute decompensated heart failure Warfarin Sensitivity Score: High (1 or more Warfarin Sensitivity Risk Factors) Nutritional Intake: Normal PO Intake Today's INR : Therapeutic Warfarin INR & Dose Trends Date INR Warfarin Dose (mg) Comments 09/05 2.2 7 mg 09/06 2.1 6 mg Enoxaparin 100 mg BID 09/07 2.5 7mg (ordered) Enoxaparin 100mg BID Anticoagulation Plan Warfarin Pharmacist Managed?: Yes Warfarin Plan: Continue current dose Specify Warfarin Dose: Warfarin 7mg daily altnerating with 6mg daily [facility] Warfarin Dosing Protocol Followed?: Yes Ordered Agents: Enoxaparin Bridging Agent Dose: Enoxaparin 100mg subQ BID INR Monitoring Frequency: Monitor INR daily Patient Education : Incomplete Will continue to follow patient's clinical progress daily. Lee Ann David PharmD 09/07/2025 10:25 AM * Progress Notes - Armando Dickinson MD - 09/06/2025 11:25 AM EST Subjective Breathing is improved Review of Systems Constitutional: Negative for fever. Respiratory: Negative for cough and shortness of breath. Genitourinary: Negative for dysuria. Neurological: Negative for headaches. Objective Vitals Temp: [36.2 ??C (97.1 ??F)-36.5 ??C (97.7 ??F)] 36.5 ??C (97.7 ??F) Heart Rate: [70-74] 70 Resp: [20-24] 24 BP: (122-154)/(73-83) 122/78 Physical Exam Constitutional: Appearance: Normal appearance. Cardiovascular: Rate and Rhythm: Normal rate and regular rhythm. Heart sounds: No murmur heard. No gallop. Pulmonary: Effort: No respiratory distress. Breath sounds: No wheezing. Abdominal: General: There is no distension. Palpations: Abdomen is soft. Tenderness: There is no abdominal tenderness. Musculoskeletal: Right lower leg: No edema. Left lower leg: No edema. Skin: General: Skin is warm and dry. Neurological: Mental Status: She is alert. Assessment & Plan Shortness of breath 40 yo F with Pmhx of trisomy 21, AV canal defect S/P repair 1986, S/P mechanical [employer] Elijah MVR + Tricuspid annuloplasty 2010 with post op course complicated by CHB requiring implant of [employer] Elijah BiVentricular Pacemaker and chronic atrial flutter who presented to us with AHRF due to pulmonary edema AHRF Pulmonary edema - baseline needing 2L NC nightly only, currently needing 2L at all time - CTPE 09/06 with mild pulmonary edema - TTE 06/25 with EF of 40-50% - s/p IV 40mg lasix overnight, will assess UOP - will put on daily home po lasix from tomorrow - wean oxygen as able Hx of mechanical MVR Hx of CHB S/p PPM A flutter - continue warfarin - as INR is subtherapeutic, bridge with lovenox (goal INR 2.5-3.5) - continue baby asa, metoprolol Medically Ready for Discharge:Anticipated in 2-4 Days * Progress Notes - Radha Hammond, PharmD - 09/06/2025 8:54 AM EST Antithrombosis Monitoring: Warfarin Kusum Sanchez is a 40 y.o. female who has been continued on warfarin. Warfarin Indication & Goal Anticoagulation Indication/Goal Warfarin Indication: Mechanical mitral valve Duration of Anticoagulation: Indefinite Target INR: 2.5-3.5 Warfarin Prior to Admission: Yes Prior to Admission Daily Warfarin Regimen: (7 mg x 4 days) + (6 mg x 3 days)--> no specific daysper family (alternating) Prior to Admission Weekly Warfarin Dose: 46 mg Assessment Warfarin Drug Interactions Increased Bleeding Risk: Low Molecular Weight Heparin Interacting medications started/stopped in past 72 hours?: No Any warfarin reversal given?: No Anticoagulation Assessment Warfarin Sensitivity Risk Factors: Acute decompensated heart failure Warfarin Sensitivity Score: High (1 or more Warfarin Sensitivity Risk Factors) Nutritional Intake: Not Documented Today's INR : Subtherapeutic Warfarin INR & Dose Trends Date INR Warfarin Dose (mg) Comments 09/05 2.2 7 mg 09/06 2.1 6 mg Enoxaparin 100 mg BID Anticoagulation Plan Warfarin Pharmacist Managed?: Yes Warfarin Plan: Continue current dose Specify Warfarin Dose: 6 mg daily [facility] Warfarin Dosing Protocol Followed?: Yes Bridging Agent in Conjunction With Warfarin? : Yes Ordered Agents: Enoxaparin Bridging Agent Dose: 100 mg SQ BID INR Monitoring Frequency: Monitor INR daily Patient Education : Incomplete Will continue to follow patient's clinical progress daily. Radha Hammond PharmD 09/06/2025 10:47 AM * H&P - Amadou Sparrow APRN, DNP - 09/06/2025 6:23 AM ESTAssociated Order(s): Consult to [facility] Images from the original note were not included. Consult to [facility] Consult performed by: Amadou Sparrow APRN, KENAN Consult ordered by: Freya Liu APRN Reason for consult: Acute acute hypoxic respiratory failure Chief Complaint: hypoxia History of Present Illness: Kusum Sanchez is a 40 y.o. year-old female who has a past medical history of trisomy 21, A-fib, HFmrEF, s/p mitral valve replacement + Tricuspid annuloplasty 2010 with post op course complicated by CHB requiring implant of [employer] Elijah BiVentricular Pacemaker (on warfarin), KALEIGH on CPAP, oxygen desaturation with exercise, hypothyroid, who presents to [facility] on 09/05/2025 with hypoxia HPI was provided by patient's mother who is the primary caregiver at the bedside, supplemented by chart review. Patient mother reports at baseline patient requires CPAP at night and wears oxygen with exercise/ambulation. She follows sleep Medicine and Pulmonology. States that patient desaturates with minimal activity on room air, and wears 2 L at baseline with activity. She reports on 09/05/2025, patient and mother attended a birthday libertarian. The mother reports a malfunction of the portable oxygen system, resulting in the patient been without oxygen for some period. She subsequently developed perioral cyanosis, which prompted mother to take patient home. Mother reports oxygen saturation of 68% on getting home which she reported improved after patient was reconnected to oxygen. Given the severity of the saturation and cyanosis, the mother brought patient to the ED for further evaluation. Mother denies fever, chills, chest pain, abdominal pain, syncope. In the ED, patient was awake and interactive, and was maintaining oxygen saturation above 90% on 2 L nasal cannula. hemodynamically stable. Initial labs were pertinent for hematocrit of 45.9, alkaline phosphate of 117, influenza A&B, COVID and RSV were not detected. ProBNP normal, 351 Chest x-ray showed. Pulmonary vascular congestion with mid and lower lung predominant hazy opacities. Probable trace bilateral pleural effusions. CT angio shows mild pulmonary edema no evidence of pulmonary embolism patient was given 1 dose of IV furosemide in the ED, and neb treatment. Assessment no evidence of overt fluid overload. Hospital Medicine was consulted and decision was made to admit for further workup and management Patient mother at bedside provided HPI, along with chart review. Review of Systems: Review of Systems Unable to perform ROS: Other Past Medical History: Past Medical History[1] Surgical History: Surgical History[2] Family History: Family History[3] Social History: She reports that she has never smoked. She has never been exposed to tobacco smoke. She has never used smokeless tobacco. She reports that she does not drink alcohol and does not use drugs. Travel History: Relevant Travel History: Travel Screening Question Response Have you been in contact with someone who was sick? No / Unsure Do you have any of the following new or worsening symptoms? Shortness of breath Have you traveled internationally or domestically in the last month? No Travel History Travel since 08/07/25 No documented travel since 08/07/25 Allergies: Doxycycline Vital Signs: Visit Vitals BP 124/79 Pulse 74 Temp 36.5 ??C (97.7 ??F) (Oral) Resp 22 Ht 1.499 m (4' 11 ) Wt 101 kg (222 lb 7.1 oz) SpO2 92% BMI 44.93 kg/m?? OB Status Other Smoking Status Never BSA 2.05 m?? Physical Exam: General: well developed, well-nourished female who presents in no apparent distress Physical Exam Constitutional: General: She is not in acute distress. Appearance: She is obese. HENT: Head: Normocephalic and atraumatic. Eyes: General: Right eye: No discharge. Left eye: No discharge. Pupils: Pupils are equal, round, and reactive to light. Cardiovascular: Rate and Rhythm: Normal rate. Pulmonary: Effort: No respiratory distress. Breath sounds: No rales. Chest: Chest wall: No tenderness. Abdominal: Tenderness: There is no abdominal tenderness. There is no right CVA tenderness or left CVA tenderness. Musculoskeletal: Right lower leg: Edema (mild) present. Left lower leg: Edema (mild) present. Skin: Coloration: Skin is not jaundiced or pale. Neurological: Mental Status: She is alert. Mental status is at baseline. Psychiatric: Comments: Unable to assess Labs (in last 24 hours): CBC: Lab Results Component Value Date WBC 6.41 09/05/2025 RBC 4.67 09/05/2025 HGB 15.5 09/05/2025 HCT 45.9 (H) 09/05/2025 PLT 169 09/05/2025 MCV 98 09/05/2025 MCH 33.2 (H) 09/05/2025 MCHC 33.8 09/05/2025 RDW 15.9 (H) 09/05/2025 NRBC 0.0 09/05/2025 Differential: Lab Results Component Value Date WBC 6.41 09/05/2025 Coagulation: Lab Results Component Value Date INR 2.2 (H) 09/05/2025 Renal: Lab Results Component Value Date NA 143 09/05/2025 K 4.3 09/05/2025 CL 106 09/05/2025 CO2 29 09/05/2025 BUN 16 09/05/2025 CREATININE 0.72 09/05/2025 GLUCOSE 104 (H) 09/05/2025 CALCIUM 9.1 09/05/2025 MG 2.0 09/05/2025 Liver: Lab Results Component Value Date AST 30 09/05/2025 ALT 28 09/05/2025 BILITOT 0.4 09/05/2025 Glucose: No results found for: PGLU No results found for: HGBA1C Microbiology: Results Procedure Component Value Units Date/Time SARS-CoV-2, Flu A, Flu B, and RSV - Rapid [[id number]] (Normal) Collected: 09/05/25 2254 Order Status: Completed Specimen: Swab from Nasopharynx Updated: 09/06/25 0021 SARS CoV-2/COVID-19 RNA PCR Result Not Detected Influenza A Virus PCR Result Not Detected Influenza B Virus PCR Result Not Detected Respiratory Syncytial Virus (RSV) PCR Result Not Detected Narrative: This test is FDA approved for use with nasopharyngeal specimens in Viral Transport Media (VTM). This test is used for clinical purposes. It should not be regarded as investigational or for research. This laboratory is certified under the Clinical Laboratory improvement Amendments of 1988 (CLIA-88 as qualified to perform high complexity clinical laboratory testing. This test was performed on the Xpert Xpress SARS CoV-2 Plus assay test, a PCR- based method. Negative results should be considered presumptive and do not preclude current or future infection obtained through community transmission or other exposures. Negative results must be considered in the context of an individual's recent exposures, history, presence of clinical signs and symptoms consistent with COVID-19. Imaging (in last 24 hours): CT Angio Pulmonary Embolism Result Date: 09/06/2025 No central pulmonary embolism. Mild pulmonary edema. Moderate-sized left posterior probably be a Bochdalek type hernia containing fat. Collateral blood flow probably due to stenotic. The venous confluence at the right the subclavian and the IVC junction., Thoracic inlet. CRITICAL RESULT: No. COMMUNICATION: Per this written report. Preliminary report signed by Nilton Pena DO on 09/06/2025 1:58 AM By electronically signing this report, I, the attending physician, attest that I have personally reviewed the images/data for the above examination(s) and agree with the final edited report. Drafted by Nilton Pena DO on 09/06/2025 1:52 AM Final report signed by Dafne Lares MD on 52:05 AM XR Chest 1 View Result Date: 09/05/2025 Findings most suggestive of pulmonary edema with probable trace bilateral pleural effusions. Coexistent infection would be difficult to exclude. CRITICAL RESULT: No. COMMUNICATION: Per this written report. Preliminary report signed by Nilton Pena DO on 09/05/2025 11:03 PM By electronically signing this report, I, the attending physician, attest that I have personally reviewed the images/data for the above examination(s) and agree with the final edited report. Drafted by Nilton Pena DO on09/05/2025 11:01 PM Final report signed by Dafne Lares MD on 09/05/2025 11:16 PM Assessment and plan: Principal problem: Shortness of breath - Principal Problem: Shortness of breath Kusum Sanchez is a 40 y.o. year-old female who has a past medical history of trisomy 21, A-fib, HFmrEF, s/p mitral valve replacement + Tricuspid annuloplasty 2010 with post op course complicated by CHB requiring implant of [employer] Elijah BiVentricular Pacemaker (on warfarin), KALEIGH on CPAP, oxygen desaturation with exercise, hypothyroid, who presents to [facility] on 09/05/2025 with hypoxia Problems #Acute on chronic hypoxic respiratory failure with mild pulmonary edema in complex congenital heartdisease / HFmrEF / KALEIGH Likely Acute on chronic hypoxic respiratory failure in a patient with trisomy 21, repaired AV canal, mechanical MVR + tricuspid annuloplasty, biventricular pacemaker, chronic AF, HFmrEF, and KALEIGH, likely due to mild acute decompensation of heart failure with radiographic pulmonary edema, superimposed on chronic exertional desaturation, with a precipitating episode of interrupted supplemental oxygen. Differential Acute on chronic heart failure with pulmonary edema , Pulmonary vascular disease / pulmonary hypertension related to congenital heart disease and KALEIGH Transient hypoxia from oxygen interruption alone . Supporting Data: Baseline: uses oxygen with exertion, not typically at rest; known exertional SOA/desaturation. Last Echo on 06/19/2025 documented normal left ventricular systolic function with EF of 40-50% Acute: SpO? 68% at home after O? interruption with perioral cyanosis; improved with O?. ED: saturations >90% on 2 L NC; hemodynamically stable. CXR: pulmonary vascular congestion with hazy opacities, trace bilateral effusions. CT 09/05: perihilar ground glass and interlobular septal thickening; mild pulmonary edema; no PE; no focal consolidation; cardiomegaly. Pro-BNP 351; viral tests negative; no leukocytosis, troponin 14/10 without significant delta Received IV Lasix with no documented evidence of marked fluid overload on exam. Plan: - ABG to access hypercapnia and gas exchange - Continue supplemental oxygen, titrating to maintain SpO? >= 92% or at her safe baseline; ensure reliable oxygen delivery systems and inspect equipment prior to discharge. - Continue home furosemide 40 mg daily, - Resume home CPAP at night with consideration of O? bleed-in if needed to maintain saturations. - Continuous pulse oximetry initially; vitals at least q4h. - Telemetry monitoring for arrhythmias. - Strict intake/output and daily weights; repeat BMP to monitor creatinine and electrolytes during diuresis - 1800 fluid restriction, low-salt diet. -duo nebs ordered - Mechanical MVR + tricuspid annuloplasty with HFmrEF, chronic AF, and BiV pacemaker on warfarin History of AV canal repair, mechanical MVR and tricuspid annuloplasty (2010), BiV pacemaker placement, chronic AF/flutter. HFmrEF documented previously (LVEF ~40-50%). On warfarin; current INR 2.2 goal 2.5-3.5. Plan: -Continue warfarin; adjust to keep INR within 2.5-3.5 for mechanical MVR. (pharmacy to do) -Continue aspirin 81 mg daily , metoprolol extended release (confirm dose) - Telemetry for rhythm; daily INR until stable, then per protocol. Chronic #Hypothyroidism - Synthroid 125 mg daily # Seasonal allergies - montelukast 10 mg, baby aspirin 81 mg, #Obesity - Body mass index is 44.93 kg/m??. - complicates all aspects of care Medications Home Medications Current Outpatient Medications Medication Instructions albuterol 108 (90 Base) MCG/ACT inhaler 2 puffs, Daily PRN aspirin 81 mg, Nightly Azelastine HCl 137 MCG/SPRAY solution No dose, route, or frequency recorded. budesonide-formoterol (Symbicort) 80-4.5 MCG/ACT inhaler 2 puffs, Inhalation, 2 times daily, Rinse mouth with water after use to reduce aftertaste and incidence of candidiasis. Do not swallow. calcium-vitamin D 500-200 MG-UNIT tablet 1 tablet, Daily cholecalciferol (VITAMIN D-3) 1,000 Units, Daily furosemide (LASIX) 40 mg, Daily guaiFENesin (MUCINEX) 1,200 mg, 2 times daily levothyroxine (SYNTHROID, LEVOXYL) 125 mcg, Daily before breakfast metoprolol succinate XL (TOPROL-XL) 12.5 mg, Oral, Daily montelukast (SINGULAIR) 10 mg, Nightly norethindrone (MICRONOR) 0.35 mg, Oral, Daily Pediatric Multiple Vit-C-FA (FLINSTONES GUMMIES OMEGA-3 DHA PO) 2 tablets, Daily warfarin (Coumadin) 1 MG tablet warfarin (COUMADIN) 6 mg, Daily Scheduled: Current Scheduled Medications[4] Continuous: Current Continuous Medications[5] As needed: ipratropium-albuterol, 3 mL, q6h PRN sodium chloride, 10 mL, PRN Fluids: Electrolytes: Continue to monitor and replace as appropriate Diet: Adult diet Diet texture: Regular; Sodium restriction: 2,000 mg Na; Fat restriction: Cardiac; Dietary fluid restriction / 24h: 1800 ml Fluid DVT prophylaxis: SCDs + On therapeutic anticoagulation Code status: Full Code Follow-up visit Future Appointments Date Time Provider Department Center 09/10/2025 1:00 PM Tanja Parsons MD [facility] 09/25/2025 1:00 PM Jesse Moffett MD [facility] 09/28/2025 11:30 AM WHT MAMMO 3 MAMMCHWHTNY [facility] 10/22/2025 1:40 PM OeLavern mccarthy APRN [facility]LPGSGSH [facility] 02/08/2026 12:30 PM Emi Orozco PA [facility] 02/10/2026 12:20 PM Hannah Tang MD [facility] 2026 1:00 PM [facility] 2026 2:40 PM Jordon Tidwell MD [facility] Amadou Sparrow APRN, KENAN 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 [employer] MITRAL VALVE REPLACEMENT OTHER SURGICAL HISTORY N/A Tricuspid Valve Annuloplasty from [employer] OTHER SURGICAL HISTORY N/A History of cardiac pacemaker from [employer] TONSILECTOMY, ADENOIDECTOMY, BILATERAL MYRINGOTOMY AND TUBES N/A Tonsillectomy With Adenoidectomy from [employer] [3] Family History Problem Relation Name Age of Onset Hypercholesterolemia Mother Hypertension Mother Thyroid disease Mother Heart attack Father Diabetes Brother Mental illness Brother [4] levothyroxine, 125 mcg, Oral, q AM sodium chloride, 10 mL, Intravenous, q12h [5] * Care Plan - Brianna Lara RN - 09/05/2025 9:51 PM EST Problem: Adult Inpatient Plan of Care Goal: Plan of Care Review Outcome: Ongoing, Progressing Flowsheets (Taken 09/07/2025526) Progress: improving Plan of Care Reviewed With: family patient Goal: Patient-Specific Goal (Individualized) Outcome: Ongoing, Progressing Flowsheets (Taken 09/07/2025526) Patient/Family-Specific Goals (Include Timeframe): The patient will maintain oxygen saturation = 92% on prescribed oxygen therapy, demonstrate respiratory rate 12-20 breaths/min, and report a decrease in dyspnea from 8/10 to 4/10. Goal: Absence of Hospital-Acquired Illness or Injury Outcome: Ongoing, Progressing Intervention: Identify and Manage Fall Risk Flowsheets (Taken 09/07/2025526) Safety Promotion/Fall Prevention: toileting scheduled clutter-free environment maintained room organization consistent nonskid shoes/slippers when out of bed assistive device/personal items within reach Intervention: Prevent Skin Injury Flowsheets (Taken 09/07/2025526) Body Position: education provided Intervention: Prevent and Manage VTE (Venous Thromboembolism) Risk Flowsheets (Taken 09/07/2025526) VTE Prevention/Management: education provided Intervention: Prevent Infection Flowsheets (Taken 09/07/2025526) Infection Prevention: hand hygiene promoted rest/sleep promoted single patient room provided visitors restricted/screened Goal: Optimal Comfort and Wellbeing Outcome: Ongoing, Progressing Intervention: Monitor Pain and Promote Comfort Flowsheets (Taken 09/07/2025526) Pain Management Interventions: rest relaxation techniques promoted quiet environment facilitated position adjusted Intervention: Provide Person-Centered Care Flowsheets (Taken 09/07/2025526) Trust Relationship/Rapport: care explained choices provided emotional support provided empathic listening provided questions answered questions encouraged reassurance provided thoughts/feelings acknowledged Problem: Pulmonary Impairment Goal: Improved Activity Tolerance Outcome: Ongoing, Progressing Intervention: Facilitate Activity Tolerance Flowsheets (Taken 09/07/2025526) Energy Conservation Techniques: regular rest breaks encouraged correct body mechanics utilized prioritizing activities promoted relaxation techniques promoted correct posture facilitated Goal: Effective Airway Clearance Outcome: Ongoing, Progressing Intervention: Promote Airway Secretion Clearance Flowsheets (Taken 09/07/2025526) Airway Clearance/Ventilation Strategies: deep breathing exercises oxygen therapy in use incentive spirometry secretion mobilization modalities Goal: Optimal Gas Exchange Outcome: Ongoing, Progressing Intervention: Optimize Oxygenation and Ventilation Flowsheets (Taken 09/07/2025526) Airway Clearance/Ventilation Strategies: deep breathing exercises oxygen therapy in use incentive spirometry secretion mobilization modalities * ED Provider Notes - Freya Liu APRN - 09/05/2025 9:51 PM EST Images from the original note were not included. - HPI Chief Complaint Patient presents with Shortness of Breath PIT Note Sharona Sanchez is a 40 y.o. female who presents to ED with Shortness of Breath. Pt has PMH of CHF, hypothyroidism, down syndrome. Pt c/o wheezing, shortness of breath, nasal congestion, low O2. Pt reports feeling short of breath onset today and reports O2 levels fell to 62% when checked at home earlier today. Pt states she has a mechanical heart valve and pacemaker. Patient denies fever, chills, cough, chest pain, nausea, vomiting, and diarrhea. ED Note: 40-year-old female past medical history of trisomy 21, CHF, AFib, KALEIGH with CPAP, hypothyroidism, mitral valve replacement with mechanical valve on Coumadin therapy, presented to ED for hypoxia. Oxygen sats dropped into 60s at home, lips cyanotic prompting ER visit. Mother is primary caregiver who gives history.Patient with nasal congestion, shortness of breath and wheezing that began earlier today while at a birthday libertarian. 02 taken by mother noted 62% on room air. Mother noted patients lips turning blue and increased respirations. Patient has home oxygen concentrator and wears home 02 at night, reports applying oxygen with improvements in symptoms. No reported fever. Non productive. Compliant with coumadin therapy. History provided by: Patient sign language interpreter used: No Patient History Past Medical History[1] Surgical History[2] Family History[3] Social History[4] Allergies: Allergies[5] Physical Exam ED Triage Vitals [09/05/25 2156] Temp Heart Rate Resp BP (!) 36.2 ??C (97.1 ??F) 70 20 (!) 154/73 SpO2 Temp Source Heart Rate Source Patient Position 96 % Oral Monitor Sitting BP Location FiO2 (%) Right arm -- Physical Exam Vitals and nursing note reviewed. Constitutional: General: She is not in acute distress. Appearance: She is well-developed. HENT: Head: Normocephalic and atraumatic. Nose: Congestion present. Eyes: Extraocular Movements: Extraocular movements intact. Conjunctiva/sclera: Conjunctivae normal. Pupils: Pupils are equal, round, and reactive to light. Cardiovascular: Rate and Rhythm: Normal rate. Comments: Mechanical click Pulmonary: Effort: Tachypnea present. Breath sounds: Wheezing present. Abdominal: Palpations: Abdomen is soft. Tenderness: There is no abdominal tenderness. Musculoskeletal: General: No swelling. Cervical back: Full passive range of motion without pain and neck supple. Skin: General: Skin is warm and dry. Capillary Refill: Capillary refill takes less than 2 seconds. Neurological: Mental Status: She is alert and oriented to person, place, and time. GCS: GCS eye subscore is 4. GCS verbal subscore is 5. GCS motor subscore is 6. Cranial Nerves: Cranial nerves 2-12 are intact. Sensory: Sensation is intact. Motor: Motor function is intact. Coordination: Coordination is intact. Gait: Gait is intact. Psychiatric: Mood and Affect: Mood normal. Ragini Coma Scale Score: 15 ED Course & MDM -40-year-old female past medical history of trisomy 21, CHF, AFib, KALEIGH with CPAP, hypothyroidism, mitral valve replacement with mechanical valve on Coumadin therapy, presented to ED for hypoxia. Oxygen sats dropped into 60s at home, lips cyanotic prompting ER visit. Mother is primary caregiver who gives history. CT PE no pulm embolism, mild pulmonary edema, BNP 351, trops without any significant delta. PT 24.6, INR 2.2, Viral panel neg, No leukocytosis. Patient is requiring 2-3L oxygen, oxygenation 93%. Walking sats on room air 79%. Room Sats at rest 87-88%. Patient received a duoneb, 8mg dexamethasone on arrival without any significant improvement in symptoms. 40mg IV lasix ordered. VBG pending. Patient will benefit from hospital admission for further workup and management of acute hypoxia with new oxygen requirement. I reviewed test results and diagnosis with patient and mother, who are agreeable for hospital admission. Hospital Medicine has been consulted and will admit patient for acute hypoxia requiring supplemental oxygen. Assessment: 40 y.o. female presents to ED with complaint of Shortness of Breath . It should be noted that the chronic conditions includes as listed above, which currently is not at goal therapy. This complicatesthe clinical picture because it Comorbidities: may be exacerbating symptoms, increases the amount and complexity of data to be reviewed, complicates the clinical workup, and increases the risk for morbidity Differential Diagnosis: Pulmonary edema, PE, ACS, pneumonia, viral illness, mechanical valve dysfunction, CHF exacerbation, among others In order to fully explore the differential diagnosis the following treatments and tests were ordered: ED Medication Administration from 09/05/20251 to 09/06/2025 0637 Date/Time Order Dose Route Action 09/05/2025 2247 EST dexamethasone (Decadron) injection 8 mg 8 mg Intravenous Given 09/05/2025 2254 EST ipratropium-albuterol (Duo-Neb) 0.5-2.5 mg/3 mL nebulizer solution 3 mL 3 mL Nebulization Given 09/06/2025 0145 EST iohexol (OMNIPaque) 350 MG/ML injection 100 mL 100 mL Intravenous Given 09/06/2025 0607 EST furosemide (Lasix) injection 40 mg 40 mg Intravenous Given All Other Orders Ordered Status Ordering Provider 09/06/25636 Intake and output Every 6 hours Acknowledged AMADOU SPARROW N 09/06/25636 Vital Signs Every 4 hours Placed in And Linked Group Acknowledged AMADOU SPARROW N 09/06/25636 Pulse Oximetry Every 4 hours Placed in And Linked Group Acknowledged AMADOU SPARROW N 09/06/25636 Weigh patient Daily Acknowledged AMADOU SPARROW N 09/06/25636 Continuous Pulse Oximetry (Needs additional Telemetry Order too) Until discontinued Acknowledged AMADOU SPARROW N 09/06/25636 Telemetry Monitoring for Acute Heart Failure/Pulmonary Edema Until discontinued Acknowledged AMADOU SPARROW N 09/06/25636 Adjust HOB (specify) 45 degrees Once Acknowledged AMADOU SPARROW N 09/06/25636 Sequential compression device Until discontinued Comments: SCDs must be in place and turned on EXCEPT when ACTIVELY ambulating. Acknowledged AMADOU SPARROW N 09/06/25636 Do Not Give Nicotine Replacement Until discontinued Acknowledged AMADOU SPARROW N 09/06/25636 Full code Continuous Acknowledged AMADOU SPARROW N 09/06/25636 Adult diet Diet texture: Regular; Sodium restriction: 2,000 mg Na; Fat restriction: Cardiac; Dietary fluid restriction / 24h: 1800 ml Fluid Diet effective now Acknowledged AMADOU SPARROW N 09/06/25636 Admit to inpatient Once Acknowledged MADUJIBEYA, AMADOU N 09/06/25 0637 Mobility Orders Until discontinued Acknowledged MADUJIBEYA, AMADOU N 09/06/25 0637 Notify physician (specify parameters) Until discontinued Acknowledged MADUJIBEYA, AMADOU N 09/06/25 0637 Insert peripheral IV Once Placed in And Linked Group Acknowledged MADUJIBEYA, AMADOU N 09/06/25 0637 Saline lock IV Once Placed in And Linked Group Acknowledged MADUJIBEYA, AMADOU N 09/06/25 0554 Consult to [facility] Once Specialty: Internal Medicine Provider: (Not yet assigned) Acknowledged GRAMPATO FREYA P 09/06/25 0554 ED to floor bed request Once Completed GRAMIG, FREYA P 09/06/25 0522 Blood gas panel, venous STAT Final result GRAMIG, FREYA P 09/06/25 0127 Troponin T, High Sensitivity, 2 Hour, Plasma PROCEDURE ONCE Final result GRAMIG, FREYA P 09/06/25 0027 Insert peripheral IV Once Acknowledged GRAMIG, FREYA P 09/06/25 0027 Until discontinued Canceled GRAMIG, FREYA P 09/06/25 0027 Continuous pulse oximetry Until discontinued Acknowledged GRAMIG, FREYA P 09/06/25 0027 Vital signs per unit protocol Per unit protocol Acknowledged GRAMIG, FREYA P 09/06/25 0026 hCG qualitative STAT Final result GRAMIG, FREYA P 09/06/25 0026 Troponin now and 120 min STAT Final result GRAMIG, FREYA P 09/06/[address] Angio Pulmonary Embolism Once Final result GRAMIG, FREYA P 09/06/25 0021 Initiate contact isolation Continuous Comments: Added via Instant Order OPA Acknowledged BPA, INSTANT ORDERS 09/06/25 0021 Initiate N95 isolation Continuous Comments: Added via Instant Order OPA Acknowledged BPA, INSTANT ORDERS 09/06/25 0021 Initiate eye protection Continuous Comments: Added via Instant Order OPA Acknowledged BPA, INSTANT ORDERS 09/05/25 2325 Urinalysis Microscopic Examination Once Final result GRAMIG, FREYA P 09/05/25 2251 Urinalysis with reflex microscopic AND reflex culture (IF UTI SUSPECTED) STAT Final result GRAMIG, FREYA P 09/05/25 2251 Urinalysis with reflex microscopic (Culture NOT Included) PROCEDURE ONCE Final result FREYA LIU 09/05/25 225 Urine Parikh Panel PROCEDURE ONCE Final result FREYA LIU 09/05/25 2240 Protime-INR STAT Final result FREYA LIU 09/05/252201 Hepatitis C Antibody - ED Once Final result MYKEL STEPHEN 09/05/252201 ED Protocol - HIV 1/2 Antibody/Antigen Screen Once Final result MYKEL STEPHEN 09/05/252201 ED HIV 1/2 Antibody/Antigen Screen w/Reflex to HIV 1/2 Differentiation PROCEDURE ONCE Final result MYKEL STEPHEN 09/05/252201 SARS-CoV-2, Flu A, Flu B, and RSV - Rapid STAT Final result MYKEL STEPHEN 09/05/252201 CMP STAT Final result MYKEL STEPHEN 09/05/252201 EKG now - STAT (adult) Once Preliminary result MYKEL STEPHEN 09/05/25 220 CBC STAT Final result MYKEL STEPHEN 09/05/25 220 BNP STAT Final result MYKEL STEPHEN 09/05/25 220 Magnesium STAT Final result MYKEL STEPHEN 09/05/25 220 Thyroid Stimulating Hormone, Plasma STAT Final result MYKEL STEPHEN 09/05/25 220 Free T4, Plasma STAT Final result MYKEL STEPHEN 09/05/252201 XR Chest 1 View One time imaging Final result MYKEL STEPHEN ED Course as of 09/06/25 0655 Sat Sep 05, 20252241 WBC: 6.41 [GG] 2242 RBC: 4.67 [GG] 2242 Hemoglobin: 15.5 [GG] 2242 Hematocrit(!): 45.9 [GG] 2242 Platelet Count: 169 [GG] 2258 TSH: 2.40 [GG] 2258 Free T4: 1.7 [GG] 2258 N-Terminal, PROBNP, Plasma: 351 [GG] 2258 Magnesium: 2.0 [GG] 2357 Findings most suggestive of pulmonary edema with probable trace bilateral pleural effusions. Coexistent infection would be difficult to exclude. [GG] [place] Sep 06, 20257 SARS CoV-2/COVID-19 RNA PCR Result: Not Detected [GG] 0028 Influenza A Virus PCR Result: Not Detected [GG] 0028 Influenza B Virus PCR Result: Not Detected [GG] 0028 Respiratory Syncytial Virus (RSV) PCR Result: Not Detected [GG] 0028 Leukocytes, Urine(!): Small [GG] 0028 Nitrite, Urine: Negative [GG] 0028 WBC, Urine: 0 - 5 [GG] 0028 Bacteria, Urine: Negative [GG] 0028 Squamous Epithelial Cells: 3 - 5 [GG] 0053 Test: Negative [GG] 0154 Troponin T, High Sensitivity, 0 Hour(!): 14 [GG] 0306 CT Angio Pulmonary Embolism No central pulmonary embolism. Mild pulmonary edema. Moderate-sized left posterior probably be a Bochdalek type hernia containing fat. Collateral blood flow probably due to stenotic. The venous confluence at the right the subclavian and the IVC junction., Thoracic inlet. [GG] 0351 Troponin T, High Sensitivity, 2 Hour: 10 [GG] ED Course User Index [GG] Freya Liu, [employer] Clinical Impressions as of 09/06/25 0655 Shortness of breath Acute cough Acute pulmonary edema (CMS/HCC) Acute respiratory failure with hypoxia Social Determinates of Health Risks (including Economic Stability, Education and level of understanding, Healthcare access and quality and concerning social factors): Lives far away Ultimately, this patient was Was admitted (Admission) The primary encounter diagnosis was Shortness of breath. Diagnoses of Acute cough, Acute pulmonary edema (CMS/HCC), and Acute respiratory failure with hypoxia were also pertinent to this visit.. Patient believed to require admission for the listed diagnoses. The Internal Medicine service was consulted for admission and was agreeable to admit to Acute Floor (Med/Surg). ED Prescriptions None Disposition Admit Admitting/Attending Physician: JASBIR KHALIL [[id number]] Provider Care Team:: [facility] [189] Are they the primary team?: Yes [1] - PIT Date: 09/05/2025 Scribe Attestation: This note was dictated to me, Louis Alvarenga, acting as a scribe for Dr. Mykel Stephen MD. Attending Attestation: The documentation was recorded by Louis Alvarenga acting as scribe in my presence at the time of the encounter and accurately reflects the service I personally performed. 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 [employer] MITRAL VALVE REPLACEMENT OTHER SURGICAL HISTORY N/A Tricuspid Valve Annuloplasty from [employer] OTHER SURGICAL HISTORY N/A History of cardiac pacemaker from [employer] TONSILECTOMY, ADENOIDECTOMY, BILATERAL MYRINGOTOMY AND TUBES N/A Tonsillectomy With Adenoidectomy from [employer] [3] Family History Problem Relation Name Age of Onset Hypercholesterolemia Mother Hypertension Mother Thyroid disease Mother Heart attack Father Diabetes Brother Mental illness Brother [4] Tobacco Use Smoking status: Never Passive exposure: Never Smokeless tobacco: Never Vaping Use Vaping status: Never Used Substance Use Topics Alcohol use: No Comment: Alcoholic Drinks/day: Never Drank Alcohol Drug use: Never [5] Allergies Allergen Reactions Doxycycline Unknown - Patient states they do not know rxn details Freya Liu APRN 09/06/25 0655 Cosigned by Vitor Hankins MD at 09/06/2025 11:21 PM EST Associated attestation - Vitor Hankins MD - 09/06/2025 11:21 PM EST I attest to being involved in providing substantive part of the medical decision making in patient care. * ED Triage Notes - Kristi Rogers RN - 09/05/2025 9:51 PM EST Pt presents on 2L NC after her O2 fell to 60% on RA at home, she was placed on 2L NC at home, Pts caregiver states she has been wheezing also. Pt sating 96% on 2L NC in lobby documented in this encounter Plan of Treatment Upcoming Encounters Date Type Department Care Team (Late st Contact Info) Description 10/22/2025 1:40 PM EST Office Visit [facility] Sleep Disorder Center [address] [place] [phone] Rudolph Lavern Mcdaniel, [employer] [address] [place] [address] 02/08/2026 12:30 PM EDT Office Visit [facility] Medicine Specialties [address] [place] [address] Emi Orozco PA [address] [place] [address] 02/10/2026 12:20 PM EDT Office Visit [facility] Women's Health [address] [place] [address] Hannah Tang MD [address] [place] [address] 03/11/2026 2:40 PM EDT Office Visit [facility] [place] [address] [place] [phone] Tanja Parsons MD [address] [place] [address] 2026 1:00 PM EDT Appointment Cardiac Imaging [address] [place] [phone] 2026 2:40 PM EDT Office Visit [facility] [place] [address] [place] [phone] Jordon Tidwell MD [address] [place] [address] Scheduled Orders Name Type Priority Associated Diagnoses Orde r Schedule Basic metabolic panel Lab Routine Acute diastolic heart failure secondary to hypertrophic obstructive cardiomyopathy Expected: 09/10/2025 (Approximate), Expires: 03/12/2027 Scheduled Referrals Name Type Priority Associated Diagnoses Orde r Schedule Discharge Ambulatory referral to Cardiology Outpatient Referral Routine Acute diastolic heart failure secondary to hypertrophic obstructive cardiomyopathy Expected: 09/15/2025, Expires: 03/12/2027 documented as of this encounter Procedures Procedure Name Priority Date/Time Associated Diagnosis Comments PROTHROMBIN TIME(PT) / INR Routine 09/08/2025 5:06 AM EST OXYGEN THERAPY Routine 09/07/2025 8:00 AM EST PROTHROMBIN TIME(PT) / INR Routine 09/07/2025 3:54 AM EST CBC W/O DIFFERENTIAL Routine 09/07/2025 3:54 AM EST BASIC METABOLIC PANEL, PLASMA Routine 09/07/2025 3:54 AM EST OXYGEN THERAPY Routine 09/06/2025 8:00 PM EST OXYGEN THERAPY Routine 09/06/2025 12:02 PM EST OXYGEN THERAPY Routine 09/06/2025 12:02 PM EST PROTHROMBIN TIME(PT) / INR STAT 09/06/2025 10:02 AM EST BLOOD GAS PANEL, VENOUS Routine 09/06/20 8:20 AM EST BLOOD GAS PANEL, VENOUS STAT 09/06/20 5:31 AM EST TROPONIN T, HIGH SENSITIVITY, 2 HOUR, PLASMA Timed 09/06/2025 3:[address] ANGIO PULMONARY EMBOLISM STAT 09/06/2025 1:49 AM EST TROPONIN T, HIGH SENSITIVITY, 0 HOUR, PLASMA, REFLEX TO 2 HOUR STAT 09/06/2025 1:00 AM EST N-TERMINAL PROBNP, PLASMA Add-On 09/06/2025 1:00 AM EST GAMMA GLUTAMYLTRANSFERASE, PLASMA Add-On 09/06/2025 1:00 AM EST ECG ADULT STAT 09/05/2025 11:00 PM EST URINALYSIS WITH REFLEX MICROSCOPIC AND CULTURE STAT 09/05/2025 10:54 PM EST SARS-COV-2, FLU A, FLU B, AND RSV - RAPID STAT 09/05/2025 10:54 PM EST URINE PARIKH PANEL STAT 09/05/2025 10:5 4 PM EST URINALYSIS MICROSCOPIC FOR UA REFLEX STAT 09/05/2025 10:54 PM EST URINALYSIS WITH REFLEX MICROSCOPIC STAT 09/05/2025 10:54 PM EST PROTHROMBIN TIME(PT) / INR STAT 09/05/2025 10:54 PM EST XR CHEST 1 VIEW STAT 09/05/2025 10:40 PM EST ED HIV 1/2 ANTIBODY/ANTIGEN SCREEN WITH REFLEX TO HIV I/II DIFFERENTIATION STAT 09/05/2025 10:26 PM EST ED PROTOCOL HIV 1/2 ANTIBODY/ANTIGEN SCREEN W/REFLEX TO HIV 1/2 ANTIBODY DIFFERENTIATION STAT 09/05/2025 10:26 PM EST HEPATITIS C ANTIBODY - ED W/REFLEX TO HCV QUANT PCR STAT 09/05/2025 10:26 PM EST N-TERMINAL PROBNP, PLASMA STAT 09/05/2025 10:26 PM EST CBC W/O DIFFERENTIAL STAT 09/05/2025 10:26 PM EST TEST QUALITATIVE PLASMA STAT Add-on 09/05/2025 10:26 PM EST TSH STAT 09/05/2025 10:26 PM EST FREE T4, PLASMA STAT 09/05/2025 10:26 PM EST MAGNESIUM, PLASMA STAT 09/05/2025 10: 26 PM EST COMPREHENSIVE METABOLIC PANEL, PLASMA STAT 09/05/2025 10:26 PM EST documented in this encounter Results * (ABNORMAL) Prothrombin Time/INR (09/08/2025 5:06 AM EST) Prothrombin Time 26.0(H) 12.0 - 14.3 sec LAB COAGULATION METHOD 09/08/2025 5:43 AM EST [facility] INR 2.4(H) 0.9 - 1.1 LAB COAGULATION METHOD 09/08/2025 5:43 AM EST [facility] Blood Venous blood specimen / Unknown Venipuncture / Unknown 09/08/2025 5:06 AM EST 09/08/2025 5:13 AM EST Narrative [facility] - 09/08/2025 5:43 AM EST OPTIMAL INR RANGES FOR PATIENT ON ORAL ANTICOAGULANT THERAPY Prevention of venous thromboembolism INR 2.0 to 3.0 In patients with heart disease: Atrial fibrillation INR 2.0 to 3.0 Valvular heart disease INR 2.0 to 3.0 Tissue heart valves INR 2.0 to 3.0 Mechanical prosthetic valves INR 2.5 to 3.5 Prevention of recurrent IA INR 2.5 to 3.5 us Armando Dickinson MD LAB BLOOD ORDERABLES Final Res ult [facility] [address] [place] [address] * (ABNORMAL) Prothrombin Time/INR (09/07/2025 3:54 AM EST) Prothrombin Time 26.6(H) 12.0 - 14.3 sec 09/07/2025 4:13 AM EST [facility] INR 2.5(H) 0.9 - 1.1 09/07/2025 4:13 AM EST [facility] Blood Venous blood specimen / Unknown Venipuncture / Unknown 09/07/2025 3:54 AM EST 09/07/2025 3:58 AM EST [facility] - 09/07/2025 4:13 AM EST OPTIMAL INR RANGES FOR PATIENT ON ORAL ANTICOAGULANT THERAPY Prevention of venous thromboembolism INR 2.0 to 3.0 In patients with heart disease: Atrial fibrillation INR 2.0 to 3.0 Valvular heart disease INR 2.0 to 3.0 Tissue heart valves INR 2.0 to 3.0 Mechanical prosthetic valves INR 2.5 to 3.5 Prevention of recurrent IA INR 2.5 to 3.5 us Armando Dickinson MD LAB BLOOD ORDERABLES Final Res ult [facility] [address] [place] [address] * (ABNORMAL) Basic metabolic panel (09/07/2025 3:54 AM EST) Glucose, Plasma 120(H) 74 - 99 mg/dL 09/07/2025 4:27 AM EST [facility] BUN, Plasma 19 7 - 21 mg/dL 09/07/2025 4:27 AM EST [facility] Creatinine, Plasma 0.68 0.60 - 1.10 mg/dL 09/07/2025 4:27 AM EST [facility] BUN/Creatinine Ratio 28 09/07/2025 4:27 AM EST [facility] Sodium, Plasma 139 136 - 145 mmol/L 09/07/2025 4:27 AM EST [facility] Potassium, Plasma 4.2 3.6 - 4.9 mmol/L 09/07/2025 4:27 AM EST [facility] Chloride, Plasma 102 97 - 107 mmol/L 09/07/2025 4:27 AM EST [facility] CO2, Plasma 28 22 - 29 mmol/L 09/07/2025 4:27 AM EST [facility] Anion Gap 9 6 - 16 mmol/L 09/07/2025 4:27 AM EST [facility] Total Calcium, Plasma 8.4(L) 8.9 - 10.2 mg/dL 09/07/2025 4:27 AM EST [facility] eGFRcr 111.7 mL/min/1.7 3m*2 09/07/2025 4:27 AM EST [facility] Comment:Reported eGFRcr in m L/min/1.73m2 is based the CKD-EPI 2020 equation that does not use a race coefficient. Blood Venous blood specimen / Unknown Venipuncture / Unknown 09/07/2025 3:54 AM EST 09/07/2025 3:58 AM EST us Armando Dickinson MD LAB BLOOD ORDERABLES Final Res ult [facility] [address] [place] [address] * (ABNORMAL) CBC W/O Differential (09/07/2025 3:54 AM EST) WBC Count 9.73 3.70 - 10.30 10*3/uL LAB HEMATOLOGY METHOD 09/07/2025 4:01 AM EST [facility] RBC Count 4.42 3.90 - 5.20 10*6/uL LAB HEMATOLOGY METHOD 09/07/2025 4:01 AM EST [facility] HGB 14.6 11.2 - 15.7 g/dL LAB HEMATOLOGY METHOD 09/07/2025 4:01 AM EST [facility] HCT 43.4 34.0 - 45.0 % LAB HEMATOLOGY METHOD 09/07/2025 4:01 AM EST [facility] Platelet Count 178 155 - 369 10*3/uL LAB HEMATOLOGY METHOD 09/07/2025 4:01 AM EST [facility] MCV 98 79 - 98 fL LAB HEMATOLOGY METHOD 09/07/2025 4:01 AM EST [facility] MCH 33.0(H) 26.0 - 32.0 pg LAB HEMATOLOGY METHOD 09/07/2025 4:01 AM EST [facility] MCHC 33.6 30.7 - 35.5 g/dL LAB HEMATOLOGY METHOD 09/07/2025 4:01 AM EST [facility] RDW 15.5(H) 11.5 - 14.5 % LAB HEMATOLOGY METHOD 09/07/2025 4:01 AM EST [facility] MPV 9.2 8.8 - 12.5 fL LAB HEMATOLOGY METHOD 09/07/2025 4:01 AM EST [facility] nRBC 0.0 <=0.0 per 100 WBCs LAB HEMATOLOGY METHOD 09/07/2025 4:01 AM EST [facility] Blood Venous blood specimen / Unknown Venipuncture / Unknown 09/07/2025 3:54 AM EST 09/07/2025 3:58 AM EST us Armando Dickinson MD LAB BLOOD ORDERABLES Final Res ult Performing Organization Address City/[facility]/ZIP Co de Phone Number [facility] [address] [place] [address] * (ABNORMAL) Protime-INR (09/06/2025 10:02 AM EST) Prothrombin Time 24.0(H) 12.0 - 14.3 sec 09/06/2025 10:21 AM EST [facility] INR 2.1(H) 0.9 - 1.1 09/06/2025 10:21 AM EST [facility] Blood Venous blood specimen / Unknown Venipuncture / Unknown 09/06/2025 10:02 AM EST 09/06/2025 10:05 AM EST Narrative [facility] - 09/06/2025 10:21 AM EST OPTIMAL INR RANGES FOR PATIENT ON ORAL ANTICOAGULANT THERAPY Prevention of venous thromboembolism INR 2.0 to 3.0 In patients with heart disease: Atrial fibrillation INR 2.0 to 3.0 Valvular heart disease INR 2.0 to 3.0 Tissue heart valves INR 2.0 to 3.0 Mechanical prosthetic valves INR 2.5 to 3.5 Prevention of recurrent IA INR 2.5 to 3.5 us Armando Dickinson MD LAB BLOOD ORDERABLES Final Res ult [facility] [address] [place] [address] * (ABNORMAL) Blood gas panel, venous (09/06/2025 8:20 AM EST) pH, Venous 7.38 7.32 - 7.43 LAB HEMATOLOGY METHOD 09/06/2025 8:26 AM EST [facility] pCO2, Venous 55(H) 37 - 52 mmHg LAB HEMATOLOGY METHOD 09/06/2025 8:26 AM EST [facility] pO2, Venous 42(H) 25 - 40 mmHg LAB HEMATOLOGY METHOD 09/06/2025 8:26 AM [facility] SO2, Measured, Venous 77 65 - 80 % LAB HEMATOLOGY METHOD 09/06/2025 8:26 AM EST [facility] Base Excess, Venous 4.9(H) -2.0 - 3.0 mmol/L LAB HEMATOLOGY METHOD 09/06/2025 8:26 AM EST [facility] Bicarbonate, Calculated, Venous 32(H) 22 - 26 mmol/L LAB HEMATOLOGY METHOD 09/06/2025 8:26 AM EST [facility] Hematocrit, Whole Blood 51.3(H) 34.0 - 45.0 % LAB HEMATOLOGY METHOD 09/06/2025 8:26 AM EST [facility] Sodium, Whole Blood 144 136 - 145 mmol/L LAB HEMATOLOGY METHOD 09/06/2025 8:26 AM EST [facility] Potassium, Whole Blood 4.0 3.6 - 4.9 mmol/L LAB HEMATOLOGY METHOD 09/06/2025 8:26 AM EST [facility] Chloride, Whole Blood 101 97 - 107 mmol/L LAB HEMATOLOGY METHOD 09/06/2025 8:26 AM EST [facility] Glucose, Whole Blood 135(H) 74 - 99 mg/dL LAB HEMATOLOGY METHOD 09/06/2025 8:26 AM EST [facility] Lactate, Venous, Whole Blood 1.1 0.5 - 2.2 mmol/L LAB HEMATOLOGY METHOD 09/06/2025 8:26 AM EST [facility] Ionized Calcium, Whole Blood 4.6 4.6 - 5.1 mg/dL LAB HEMATOLOGY METHOD 09/06/2025 8:26 AM [facility] Blood Venous blood specimen / Unknown Venipuncture / Unknown 09/06/2025 8:20 AM EST 09/06/2025 8:25 AM EST us Amadousweta Sparrow APRN, DNP LAB BLOOD ORDERAB LES Final Result [facility] [address] [place] [address] * (ABNORMAL) Blood gas panel, venous (09/06/2025 5:31 AM EST) pH, Venous 7.37 7.32 - 7.43 LAB HEMATOLOGY METHOD 09/06/2025 5:40 AM EST [facility] pCO2, Venous 51 37 - 52 mmHg LAB HEMATOLOGY METHOD 09/06/2025 5:40 AM EST [facility] pO2, Venous 77(H) 25 - 40 mmHg LAB HEMATOLOGY METHOD 09/06/2025 5:40 AM EST [facility] SO2, Measured, Venous 96(H) 65 - 80 % LAB HEMATOLOGY METHOD 09/06/2025 5:40 AM EST [facility] Base Excess, Venous 3.0 -2.0 - 3.0 mmol/L LAB HEMATOLOGY METHOD 09/06/2025 5:40 AM EST [facility] Bicarbonate, Calculated, Venous 29(H) 22 - 26 mmol/L LAB HEMATOLOGY METHOD 09/06/2025 5:40 AM EST [facility] Hematocrit, Whole Blood 48.8(H) 34.0 - 45.0 % LAB HEMATOLOGY METHOD 09/06/2025 5:40 AM EST [facility] Sodium, Whole Blood 141 136 - 145 mmol/L LAB HEMATOLOGY METHOD 09/06/2025 5:40 AM EST [facility] Potassium, Whole Blood 4.1 3.6 - 4.9 mmol/L LAB HEMATOLOGY METHOD 09/06/2025 5:40 AM EST [facility] Chloride, Whole Blood 104 97 - 107 mmol/L LAB HEMATOLOGY METHOD 09/06/2025 5:40 AM EST [facility] Glucose, Whole Blood 149(H) 74 - 99 mg/dL LAB HEMATOLOGY METHOD 09/06/2025 5:40 AM EST [facility] Lactate, Venous, Whole Blood 1.0 0.5 - 2.2 mmol/L LAB HEMATOLOGY METHOD 09/06/2025 5:40 AM EST [facility] Ionized Calcium, Whole Blood 4.8 4.6 - 5.1 mg/dL LAB HEMATOLOGY METHOD 09/06/2025 5:40 AM EST [facility] Blood Venous blood specimen / Unknown Venipuncture / Unknown 09/06/2025 5:31 AM EST 09/06/2025 5:33 AM EST Freya Estuardo Liu [employer] LAB BLOOD ORDERABLES Final Result Performing Organization Address [facility] de Phone Number [facility] [address] [place] [address] * Troponin T, High Sensitivity, 2 Hour, Plasma (09/06/2025 3:15 AM EST) Pathologist [facility] Troponin T, High Sensitivity, 2 Hour 10 <14 ng/L 09/06/2025 3:50 AM EST [facility] Troponin Delta 4 <10 ng/L 09/06/2025 3:50 AM EST [facility] Troponin Delta Interpretation Not Significant 09/06/2025 3:50 AM EST [facility] Comment:Not Significant. No acute change in troponin observed between the baseline and 2 hour samples. Blood Venous blood specimen / Unknown Venipuncture / Unknown 09/06/2025 3:15 AM EST 09/06/2025 3:23 AM EST Freya Liu [employer] LAB BLOOD ORDERABLES Final Result Performing Organization Address [facility] [place] [address] * CT Angio Pulmonary Embolism (09/06/2025 1:49 AM EST) Anatomical Region Laterality Modality Chest Computed Tomogra phy Impressions 09/06/2025 2:05 AM EST No central pulmonary embolism. Mild pulmonary edema. Moderate-sized left posterior probably be a Bochdalek type hernia containing fat. Collateral blood flow probably due to stenotic. The venous confluence at the right the subclavian and the IVC junction., Thoracic inlet. CRITICAL RESULT: No. COMMUNICATION: Per this written report. Preliminary report signed by Nilton Pena DO on 09/06/2025 1:58 AM By electronically signing this report, I, the attending physician, attest that I have personally reviewed the images/data for the above examination(s) and agree with the final edited report. Drafted by Nilton Pena DO on 09/06/2025 1:52 AM Final report signed by Dafne Lares MD on 09/06/2025 2:05 AM Narrative 09/06/2025 2:05 AM EST CLINICAL INDICATION: Pulmonary embolism (PE) suspected, high prob TECHNIQUE: Imaging of the chest was performed from thoracic inlet through upper abdomen, using spiral technique, following administration of IV contrast, Omnipaque 350, 100 mL per the pulmonary angiogram protocol. In addition, 3D images were created and reviewed. TOTAL DLP (Dose-Length Product): 506.86 mGy.cm. Please note: The reported value represents the total of one or more individual components during the CT acquisition on this date and at this time, and as such, the same value may appear in more than one CT report depending on the interpreting/reporting physicians. COMPARISON: Chest radiograph from 3 hours prior, high-resolution CT chest 09/08/2024 FINDINGS: Posttreatment related changes. Pulmonary Arteries/Vessels: No central pulmonary embolism. Nondiagnostic evaluation distal to this point secondary to contrast bolus timing and respiratory motion artifact. ICD noted. Mitral valve replacement. Cardiomegaly. Right Heart Strain: No evidence of right heart strain. Pleural/Pericardial space: No pneumothorax. No pleural effusions. No pericardial effusion. Lymph Nodes: No lymphadenopathy within the chest. Lungs: Perihilar groundglass opacities, greatest in the lung apices with fairly diffuse smooth interlobular septal thickening. No focal consolidation. Mediastinum: Probably at least mild cardiomegaly. Posttreatment related changes. The some lipomatosis or fat pads noted. Chest wall: No chest wall hematoma or contusion. Multiple chest wall collaterals, nonspecific. Right chest wall ICD. Bones: No acute fracture within the chest. Median sternotomy wires. Upper Abdomen: Volume redistribution within the liver suggestive of underlying parenchymal disease. Procedure Note Dafne Lares MD - 09/06/2025 CLINICAL INDICATION: Pulmonary embolism (PE) suspected, high prob TECHNIQUE: Imaging of the chest was performed from thoracic inlet through upperabdomen, using spiral technique, following administration of IV contrast,Omnipaque 350, 100 mL per the pulmonary angiogram protocol. In addition,3D images were created and reviewed. TOTAL DLP (Dose-Length Product): 506.86 mGy.cm. Please note: The reportedvalue represents the total of one or more individual components during theCT acquisition on this date and at this time, and as such, the same valuemay appear in more than one CT report depending on theinterpreting/reporting physicians. COMPARISON: Chest radiograph from 3 hours prior, high-resolution CT chest 09/08/2024 FINDINGS: Posttreatment related changes. Pulmonary Arteries/Vessels: No central pulmonary embolism. Nondiagnosticevaluation distal to this point secondary to contrast bolus timing andrespiratory motion artifact. ICD noted. Mitral valve replacement.Cardiomegaly. Right Heart Strain: No evidence of right heart strain. Pleural/Pericardial space: No pneumothorax. No pleural effusions. Nopericardial effusion. Lymph Nodes: No lymphadenopathy within the chest. Lungs: Perihilar groundglass opacities, greatest in the lung apices withfairly diffuse smooth interlobular septal thickening. No focalconsolidation. Mediastinum: Probably at least mild cardiomegaly. Posttreatment relatedchanges. The some lipomatosis or fat pads noted. Chest wall: No chest wall hematoma or contusion. Multiple chest wallcollaterals, nonspecific. Right chest wall ICD. Bones: No acute fracture within the chest. Median sternotomy wires. Upper Abdomen: Volume redistribution within the liver suggestive ofunderlying parenchymal disease. IMPRESSION: No central pulmonary embolism. Mild pulmonary edema. Moderate-sized left posterior probably be a Bochdalek type herniacontaining fat. Collateral blood flow probably due to stenotic. The venous confluence atthe right the subclavian and the IVC junction., Thoracic inlet. CRITICAL RESULT: No. COMMUNICATION: Per this written report. Preliminary report signed by Nilton Pena DO on 09/06/2025 1:58 AM By electronically signing this report, I, the attending physician, attestthat I have personally reviewed the images/data for the aboveexamination(s) and agree with the final edited report. Drafted by Nilton Pena DO on 09/06/2025 1:52 AM Final report signed by Dafne Lares MD on 09/06/2025 2:05 AM us Freya P Gramig [employer] IMG CT PROCEDURES Final Res ult * N-Terminal Probnp (09/06/2025 1:00 AM EST) N-Terminal, PROBNP, Plasma 339 0 - 449 pg/mL 09/06/2025 11:54 AM EST [facility] Blood Venous blood specimen / Unknown Venipuncture / Unknown 09/06/2025 1:00 AM EST 09/06/2025 1:06 AM EST us Armando Dickinson MD LAB BLOOD ORDERABLES Final Res ult [facility] [address] [place] [address] * (ABNORMAL) GGT (09/06/2025 1:00 AM EST) Pathologist [facility] GGT, Plasma 129(H) 5 - 36 U/L 09/06/2025 8:47 AM EST [facility] Blood Venous blood specimen / Unknown Venipuncture / Unknown 09/06/2025 1:00 AM EST 09/06/2025 1:06 AM EST us Amadou Sparrow APRN, DNP LAB BLOOD ORDERAB LES Final Result Performing Organization Address City/[facility]/ZIP [place] [address] * (ABNORMAL) Troponin now and 120 min (09/06/2025 1:00 AM EST) Pathologist [facility] Troponin T, High Sensitivity, 0 Hour 14(H) <14 ng/L 09/06/2025 1:27 AM EST [facility] Blood Venous blood specimen / Unknown Venipuncture / Unknown 09/06/2025 1:00 AM EST 09/06/2025 1:06 AM EST us Freya Liu [employer] LAB BLOOD ORDERABLES Final Result Performing Organization Address City/[facility]/ZIP Co de Phone Number [facility] [address] [place] [address] * EKG now - STAT (adult) (09/05/2025 11:00 PM EST) EKG DIAGNOSIS CLASS Abnormal MUSE ECG Ventricular Rate 71 BPM MUSE ECG Atrial Rate 258 BPM MUSE ECG QRSD Interval 138 ms MUSE ECG QT Interval 440 ms MUSE ECG QTC Interval 478 ms MUSE ECG R [place] 236 degrees MUSE ECG T Wave [place] 59 degrees MUSE ECG Diagnosis Biventricular pacemaker detected MUSE ECG Diagnosis Ventricular-pace d rhythm MUSE ECG Diagnosis Baseline Artifact Electrode noise MUSE ECG Diagnosis Abnormal ECG MUSE ECG Diagnosis MUSE ECG Diagnosis Confirmed by Jass Stafford ([id number]) on 09/06/2025 12:22:26 PM MUSE ECG 09/05/2025 11:0 0 PM EST 09/06/2025 12:22 PM EST Mykel Stephen MD ECG ORDERABLES Final Result Performing Organization Address [facility] Co de Phone Number MUSE ECG * Urinalysis Microscopic Examination (09/05/2025 10:54 PM EST) Urine Urine specimen obtained by clean catch procedure / Unknown Non-blood Collection / Unknown 09/05/2025 10:54 PM EST 09/05/2025 11:01 PM EST Freya Liu APRN LAB URINE ORDERABLES Final Result Performing Organization Address [facility] Co de Phone Number [facility] [address] [place] [address] * Urine Parikh Panel (09/05/2025 10:54 PM EST) Pathologist [facility] Extra Specimen evaluation in progress 09/06/2025 1:02 AM EST [facility] Urine Urine specimen obtained by clean catch procedure / Unknown Non-blood Collection / Unknown 09/05/2025 10:54 PM EST 09/05/2025 11:01 PM EST Freya Liu [employer] LAB URINE ORDERABLES Final Result Performing Organization Address [facility] de Phone Number [facility] [address] [place] [address] * (ABNORMAL) Urinalysis with reflex microscopic (Culture NOT Included) (09/05/2025 10:54 PM EST) Color, Urine Yellow LAB URINALYSIS - AUTOMATED METHOD 09/05/2025 11:25 PM [facility] Clarity, Urine Clear LAB URINALYSIS - AUTOMATED METHOD 09/05/2025 11:25 PM [facility] Spec [place], Urine 1.019 1.005 - 1.030 LAB URINALYSIS - AUTOMATED METHOD 09/05/2025 11:25 PM [facility] pH, Urine 6.0 5.0 - 8.0 LAB URINALYSIS - AUTOMATED METHOD 09/05/2025 11:25 PM [facility] Protein, Urine Negative Negative mg/dL LAB URINALYSIS - AUTOMATED METHOD 09/05/2025 11:25 PM [facility] Glucose, Urine Negative Negative mg/dL LAB URINALYSIS - AUTOMATED METHOD 09/05/2025 11:25 PM [facility] Ketones, Urine Negative Negative mg/dL LAB URINALYSIS - AUTOMATED METHOD 09/05/2025 11:25 PM [facility] Blood, Urine Negative Negative LAB URINALYSIS - AUTOMATED METHOD 09/05/2025 11:25 PM [facility] Bilirubin, Urine Negative Negative LAB URINALYSIS - AUTOMATED METHOD 09/05/2025 11:25 PM [facility] Urobilinogen, Urine 0.2 0.2 to 1.0 mg/dL LAB URINALYSIS - AUTOMATED METHOD 09/05/2025 11:25 PM [facility] Leukocytes, Urine Small(A) Negative LAB URINALYSIS - AUTOMATED METHOD 09/05/2025 11:25 PM [facility] Nitrite, Urine Negative Negative LAB URINALYSIS - AUTOMATED METHOD 09/05/2025 11:25 PM [facility] RBC, Urine 1 0 to 3 /HPF LAB URINALYSIS - AUTOMATED METHOD 09/05/2025 11:25 PM [facility] WBC, Urine 0 - 5 0 to 5 /HPF LAB URINALYSIS - AUTOMATED METHOD 09/05/2025 11:25 PM [facility] Squamous Epithelial Cells 3 - 5 0 to 5 /HPF LAB URINALYSIS - AUTOMATED METHOD 09/05/2025 11:25 PM [facility] Hyaline Casts 0 - 2 0 to 5 /LPF LAB URINALYSIS - AUTOMATED METHOD 09/05/2025 11:25 PM EST [facility] Bacteria, Urine Negative Negative LAB URINALYSIS - AUTOMATED METHOD 09/05/2025 11:25 PM EST [facility] Urine Urine specimen obtained by clean catch procedure / Unknown Non-blood Collection / Unknown 09/05/2025 10:54 PM EST 09/05/2025 11:01 PM EST Freya Liu APRN LAB URINE ORDERABLES Final Result Performing Organization Address [facility]/ZIP Co de Phone Number [facility] [address] [place] [address] * (ABNORMAL) Protime-INR (09/05/2025 10:54 PM EST) Prothrombin Time 24.6(H) 12.0 - 14.3 sec 09/05/2025 11:19 PM EST [facility] INR 2.2(H) 0.9 - 1.1 09/05/2025 11:19 PM EST [facility] Blood Venous blood specimen / Unknown Venipuncture / Unknown 09/05/2025 10:54 PM EST 09/05/2025 10:57 PM EST Narrative [facility] - 09/05/2025 11:19 PM EST OPTIMAL INR RANGES FOR PATIENT ON ORAL ANTICOAGULANT THERAPY Prevention of venous thromboembolism INR 2.0 to 3.0 In patients with heart disease: Atrial fibrillation INR 2.0 to 3.0 Valvular heart disease INR 2.0 to 3.0 Tissue heart valves INR 2.0 to 3.0 Mechanical prosthetic valves INR 2.5 to 3.5 Prevention of recurrent IA INR 2.5 to 3.5 us Freya Liu APRN LAB BLOOD ORDERABLES Final Result Performing Organization Address [facility]/ZIP Co de Phone Number [facility] [address] [place] [address] * SARS-CoV-2, Flu A, Flu B, and RSV - Rapid (09/05/2025 10:54 PM EST) SARS CoV-2/COVID-19 RNA PCR Result Not Detected Not Detected 09/06/2025 12:21 AM EST [facility] Influenza A Virus PCR Result Not Detected Not Detected 09/06/2025 12:21 AM EST [facility] Influenza B Virus PCR Result Not Detected Not Detected 09/06/2025 12:21 AM EST [facility] Respiratory Syncytial Virus (RSV) PCR Result Not Detected Not Detected 09/06/2025 12:21 AM EST [facility] Swab Nasopharyngeal structure / Unknown Non-blood Collection / Unknown 09/05/2025 10:54 PM EST 09/05/2025 11:31 PM EST Narrative [facility] - 09/06/2025 12:21 AM EST This test is FDA approved for use with nasopharyngeal specimens in Viral [employer] Media (VTM). This test is used for clinical purposes. It should not be regarded as investigational or for research. This laboratory is certified under the Clinical Laboratory improvement Amendments of 1988 (CLIA-88 as qualified to perform high complexity clinical laboratory testing. This test was performed on the Xpert Xpress SARS CoV-2 Plus assay test, a PCR- based method. Negative results should be considered presumptive and do not preclude current or future infection obtained through community transmission or other exposures. Negative results must be considered in the context of an individual's recent exposures, history, presence of clinical signs and symptoms consistent with COVID-19. us Mykel Stephen MD LAB MICROBIOLOGY - GENERAL ORDER BELLO Final Result [facility] [address] [place] [address] * XR Chest 1 View (09/05/2025 10:40 PM EST) Anatomical Region Laterality Modality Chest Digital Radiogra phy Impressions 09/05/2025 11:16 PM EST Findings most suggestive of pulmonary edema with probable trace bilateral pleural effusions. Coexistent infection would be difficult to exclude. CRITICAL RESULT: No. COMMUNICATION: Per this written report. Preliminary report signed by Nilton Pena DO on 09/05/2025 11:03 PM By electronically signing this report, I, the attending physician, attest that I have personally reviewed the images/data for the above examination(s) and agree with the final edited report. Drafted by Nilton Pena DO on 09/05/2025 11:01 PM Final report signed by Dafne Lares MD on 09/05/2025 11:16 PM Narrative 09/05/2025 11:16 PM EST CLINICAL INDICATION: SOB TECHNIQUE: XR CHEST 1 VIEW COMPARISON: Chest CT 09/08/2024 FINDINGS: Stable cardiac silhouette and mediastinal contours post mitral valve replacement. Right chest wall dual-lead pacemaker noted. The third median sternotomy wire is fractured, unchanged. Pulmonary vascular congestion with mid and lower lung predominant hazy opacities. Probable trace bilateral pleural effusions. No pneumothorax. Procedure Note Dafne Lares MD - 09/05/2025 CLINICAL INDICATION: SOB TECHNIQUE: XR CHEST 1 VIEW COMPARISON: Chest CT 09/08/2024 FINDINGS: Stable cardiac silhouette and mediastinal contours post mitral valvereplacement. Right chest wall dual-lead pacemaker noted. The third mediansternotomy wire is fractured, unchanged. Pulmonary vascular congestionwith mid and lower lung predominant hazy opacities. Probable tracebilateral pleural effusions. No pneumothorax. IMPRESSION: Findings most suggestive of pulmonary edema with probable trace bilateralpleural effusions. Coexistent infection would be difficult to exclude. CRITICAL RESULT: No. COMMUNICATION: Per this written report. Preliminary report signed by Nilton Pena DO on 09/05/2025 11:03 PM By electronically signing this report, I, the attending physician, attestthat I have personally reviewed the images/data for the aboveexamination(s) and agree with the final edited report. Drafted by Nilton Pena DO on 09/05/2025 11:01 PM Final report signed by Dafne aLres MD on 09/05/2025 11:16 PM us Mykel Stephen MD IMG XR PROCEDURES Final Result * hCG qualitative (09/05/2025 10:26 PM EST) Test Negative Negative 09/06/2025 12:52 AM EST [facility] Blood Venous blood specimen / Unknown Venipuncture / Unknown 09/05/2025 10:26 PM EST 09/05/2025 10:27 PM EST Narrative [facility] - 09/06/2025 12:52 AM EST Reference Range: Males and non- females: Negative. us Freya Liu APRN LAB BLOOD ORDERABLES Final Result Performing Organization Address City/[facility]/ZIP Co de Phone Number [facility] [address] [place] [address] * ED HIV 1/2 Antibody/Antigen Screen w/Reflex to HIV 1/2 Differentiation (09/05/2025 10:26 PM EST) HIV 1 & 2 Antibody/Antigen Screen Non Reactive Non Reactive 09/06/2025 3:24 AM EST [facility] Comment:Screening for HIV 1 & 2 antibodies, and P24 antigen is NONREACTIVE. No confirmatory testing is required. Blood Venous blood specimen / Unknown Venipuncture / Unknown 09/05/2025 10:26 PM EST 09/05/2025 10:32 PM EST us Mykel Stephen MD LAB BLOOD ORDERABLES Final Resul t Performing Organization Address City/[facility]/ZIP Co de Phone Number [facility] [address] [place] [address] * Hepatitis C Antibody - ED (09/05/2025 10:26 PM EST) Hepatitis C Antibody Negative Negative 09/06/2025 3:31 AM EST [facility] Blood Venous blood specimen / Unknown Venipuncture / Unknown 09/05/2025 10:26 PM EST 09/05/2025 10:32 PM EST us Mykel Stephen MD LAB BLOOD ORDERABLES Final Resul t Performing Organization Address City/[facility]/ZIP Co de Phone Number [facility] [address] [place] [address] * Free T4, Plasma (09/05/2025 10:26 PM EST) Free T4, Plasma 1.7 0.8 - 1.7 ng/dL 09/05/2025 10:55 PM EST [facility] Blood Venous blood specimen / Unknown Venipuncture / Unknown 09/05/2025 10:26 PM EST 09/05/2025 10:27 PM EST Narrative [facility] - 09/05/2025 10:55 PM EST Free T4 Trimester Specific Ranges 1st Trimester 0.9 - 1.50 ng/dL 2nd Trimester 0.7 - 1.40 ng/dL 3rd Trimester 0.7 - 1.24 ng/dL us Mykel Stephen MD LAB BLOOD ORDERABLES Final Resul t Performing Organization Address [facility] [place] [address] * Thyroid Stimulating Hormone, Plasma (09/05/2025 10:26 PM EST) Thyroid Stimulating Hormone, Plasma 2.40 0.40 - 4.20 uIU/mL 09/05/2025 10:55 PM EST [facility] Blood Venous blood specimen / Unknown Venipuncture / Unknown 09/05/2025 10:26 PM EST 09/05/2025 10:27 PM EST Narrative [facility] - 09/05/2025 10:55 PM EST Trimester Specific Ranges TSH ( IU/mL) 1st Trimester 0.1 - 3.0 2nd Trimester 0.19 - 4.06 3rd Trimester 0.3 - 3.7 us Mykel Stephen MD LAB BLOOD ORDERABLES Final Resul t Performing Organization Address [facility] Co hi Phone Number [facility] [address] [place] [address] * Magnesium (09/05/2025 10:26 PM EST) Magnesium, Plasma 2.0 1.9 - 2.4 mg/dL 09/05/2025 10:55 PM EST [facility] Blood Venous blood specimen / Unknown Venipuncture / Unknown 09/05/2025 10:26 PM EST 09/05/2025 10:27 PM EST us Mykel Stephen MD LAB BLOOD ORDERABLES Final Resul t Performing Organization Address City/[facility]/ZIP Co de Phone Number [facility] [address] [place] [address] * BNP (09/05/2025 10:26 PM EST) N-Terminal, PROBNP, Plasma 351 0 - 449 pg/mL 09/05/2025 10:55 PM EST [facility] Blood Venous blood specimen / Unknown Venipuncture / Unknown 09/05/2025 10:26 PM EST 09/05/2025 10:27 PM EST us Mykel Stephen MD LAB BLOOD ORDERABLES Final Resul t Performing Organization Address [facility]/ZIP Co de Phone Number [facility] [address] [place] [address] * (ABNORMAL) CBC (09/05/2025 10:26 PM EST) Pathologist [facility] WBC Count 6.41 3.70 - 10.30 10*3/uL LAB HEMATOLOGY METHOD 09/05/2025 10:29 PM EST [facility] RBC Count 4.67 3.90 - 5.20 10*6/uL LAB HEMATOLOGY METHOD 09/05/2025 10:29 PM EST [facility] HGB 15.5 11.2 - 15.7 g/dL LAB HEMATOLOGY METHOD 09/05/2025 10:29 PM EST [facility] HCT 45.9(H) 34.0 - 45.0 % LAB HEMATOLOGY METHOD 09/05/2025 10:29 PM EST [facility] Platelet Count 169 155 - 369 10*3/uL LAB HEMATOLOGY METHOD 09/05/2025 10:29 PM EST [facility] MCV 98 79 - 98 fL LAB HEMATOLOGY METHOD 09/05/2025 10:29 PM EST [facility] MCH 33.2(H) 26.0 - 32.0 pg LAB HEMATOLOGY METHOD 09/05/2025 10:29 PM EST [facility] MCHC 33.8 30.7 - 35.5 g/dL LAB HEMATOLOGY METHOD 09/05/2025 10:29 PM EST [facility] RDW 15.9(H) 11.5 - 14.5 % LAB HEMATOLOGY METHOD 09/05/2025 10:29 PM EST [facility] MPV 9.2 8.8 - 12.5 fL LAB HEMATOLOGY METHOD 09/05/2025 10:29 PM EST [facility] nRBC 0.0 <=0.0 per 100 WBCs LAB HEMATOLOGY METHOD 09/05/2025 10:29 PM EST [facility] Blood Venous blood specimen / Unknown Venipuncture / Unknown 09/05/2025 10:26 PM EST 09/05/2025 10:27 PM EST us Mykel Stephen MD LAB BLOOD ORDERABLES Final Resul t [facility] [address] [place] [address] * (ABNORMAL) CMP (09/05/2025 10:26 PM EST) Glucose, Plasma 104(H) 74 - 99 mg/dL 09/05/2025 10:55 PM EST [facility] BUN, Plasma 16 7 - 21 mg/dL 09/05/2025 10:55 PM EST [facility] Creatinine, Plasma 0.72 0.60 - 1.10 mg/dL 09/05/2025 10:55 PM EST [facility] BUN/Creatinine Ratio 22 09/05/2025 10:55 PM EST [facility] Sodium, Plasma 143 136 - 145 mmol/L 09/05/2025 10:55 PM EST [facility] Potassium, Plasma 4.3 3.6 - 4.9 mmol/L 09/05/2025 10:55 PM EST [facility] Chloride, Plasma 106 97 - 107 mmol/L 09/05/2025 10:55 PM EST [facility] CO2, Plasma 29 22 - 29 mmol/L 09/05/2025 10:55 PM EST [facility] Anion Gap 8 6 - 16 mmol/L 09/05/2025 10:55 PM EST [facility] Total Calcium, Plasma 9.1 8.9 - 10.2 mg/dL 09/05/2025 10:55 PM EST [facility] Total Protein 7.7 6.3 - 7.9 g/dL 09/05/2025 10:55 PM EST [facility] Albumin, Plasma 3.7 3.5 - 5.2 g/dL 09/05/2025 10:55 PM EST [facility] AST, Plasma 30 10 - 35 U/L 09/05/2025 10:55 PM EST [facility] ALT, Plasma 28 10 - 35 U/L 09/05/2025 10:55 PM EST [facility] Alkaline Phosphatase, Plasma 117(H) 35 - 104 U/L 09/05/2025 10:55 PM EST [facility] Total Bilirubin, Plasma 0.4 0.2 - 1.1 mg/dL 09/05/2025 10:55 PM EST [facility] eGFRcr 107.2 mL/min/1.7 3m*2 09/05/2025 10:55 PM EST [facility] Comment:Reported eGFRcr in m L/min/1.73m2 is based the CKD-EPI 2020 equation that does not use a race coefficient. Blood Venous blood specimen / Unknown Venipuncture / Unknown 09/05/2025 10:26 PM EST 09/05/2025 10:27 PM EST us Mykel Stephen MD LAB BLOOD ORDERABLES Final Resul t [facility] [address] [place] [address] documented in this encounter Visit Diagnoses Diagnosis Shortness of breath- Primary Shortness of breath Acute cough Acute pulmonary edema (CMS/HCC) Unspecified acute edema of lung Acute respiratory failure with hypoxia Complete heart block, post-surgical Cardiac complications Acute diastolic heart failure secondary to hypertrophic obstructive cardiomyopathy documented in this encounter Admitting Diagnoses Diagnosis Shortness of breath documented in this encounter Administered Medications Inactive Administered Medications - up to 3 most recent administrations Medication Order MAR Action Action Date Dose Rate Site albuterol 108 (90 Base) MCG/ACT inhaler 2 puff 2 puff, Inhalation, Every 6 hours PRN, Starting on 09/06/25 at 2158, Until Sun09/08/25 at 1546, Routine, wheezing, shortness of breath Given 09/06/2025 10:03 PM EST 2 puffs aspirin chewable tablet 81 mg 81 mg, Oral, Daily, First dose on 09/06/25 at 2030, Until Discontinued, Routine Given 09/08/2025 8:29 AM EST 81 mg Given 09/07/2025 8:35 AM EST 81 mg Given 09/06/2025 8:43 PM EST 81 mg dexamethasone (Decadron) injection 8 mg 8 mg, Intravenous, Once, 1 dose, On 09/05/25 at 2205, Routine Given 09/05/2025 10:47 PM EST 8 mg enoxaparin (Lovenox) syringe 100 mg 100 mg (rounded from 101 mg = 1 mg/kg 101 kg), Subcutaneous, Every 12 hours, First dose on 09/06/25 at 1050, Until Discontinued, Routine Given 09/08/2025 5:01 AM EST 100 mg Right Lower Abdomen Given 09/07/2025 6:09 PM EST 100 mg Ri ght Lower Abdomen Given 09/07/2025 6:15 AM EST 100 mg Ri ght Lower Abdomen furosemide (Lasix) injection 40 mg 40 mg, Intravenous, Once, 1 dose, On 09/06/25 at 0530, STAT Given 09/06/2025 6:07 AM EST 40 mg furosemide (Lasix) injection 40 mg 40 mg, Intravenous, Once, 1 dose, On 09/07/25 at 0900, Routine Given 09/07/2025 8:35 AM EST 40 mg iohexol (OMNIPaque) 350 MG/ML injection 100 mL 100 mL, Intravenous, Once in imaging, 1 dose, Starting on 09/06/25 at 0140, Until 09/06/25 at 0145, Routine, Imaging Protocol Orders Given 09/06/2025 1:45 AM EST 100 mL ipratropium-albuterol (Duo-Neb) 0.5-2.5 mg/3 mL nebulizer solution 3 mL 3 mL, Nebulization, Once, 1 dose, On 09/05/25 at 2205, Routine Given 09/05/2025 10:54 PM EST 3 mL ipratropium-albuterol (Duo-Neb) 0.5-2.5 mg/3 mL nebulizer solution 3 mL 3 mL, Nebulization, Every 6 hours PRN, Starting on 09/06/25 at 0637, Until Sun09/08/25 at 1546, Routine, wheezing, shortness of breath levothyroxine (Synthroid, Levoxyl) tablet 125 mcg 125 mcg, Oral, Every morning, First dose on Sun09/06/25 at 0750, Until Discontinued, Routine Given 09/08/2025 5:01 AM EST 125 mcg Given 09/07/2025 6:15 AM EST 125 mcg Given 09/06/2025 8:20 AM EST 125 mcg metoprolol succinate XL (Toprol-XL) 24 hr tablet 12.5 mg 12.5 mg, Oral, Nightly, First dose on Sun09/06/25 at 2100, Until Discontinued, Routine Given 09/06/2025 8:43 PM EST 12.5 mg montelukast (Singulair) tablet 10 mg 10 mg, Oral, Nightly, First dose on Sun09/06/25 at 2100, Until Discontinued, Routine Given 09/07/2025 9:19 PM EST 10 mg Given 09/06/2025 8:18 PM EST 10 mg oxymetazoline (Afrin) 0.05 % nasal spray 2 spray 2 spray, Each Nostril, Every 12 hours PRN, Starting on Sun09/07/25 at 2048, Until Sun09/08/25 at 1546, Routine, congestion oxymetazoline (Afrin) 0.05 % nasal spray 2 spray 2 spray, Each Nostril, 2 times daily, 4 doses, First dose on Sun09/08/25 at 0930, Last dose on Sun09/09/25 at 2100, Routine polyethylene glycol (Miralax) packet 17 g 17 g, Oral, Daily, First dose on Sun09/07/25 at 1015, Until Discontinued, Routine Given 09/08/2025 8:28 AM EST 17 g Given 09/07/2025 11:24 AM EST 17 g sodium chloride 0.9 % flush 10 mL 10 mL, Intravenous, Every 12 hours, First dose on Sun09/06/25 at 0640, Until Discontinued, Routine Given 09/08/2025 6:25 AM EST 10 mL Given 09/07/2025 6:15 AM EST 10 mL Given 09/06/2025 6:03 PM EST 10 mL sodium chloride 0.9 % flush 10 mL 10 mL, Intravenous, As needed, Starting on Sun09/06/25 at 0633, Until Sun09/08/25 at 1546, Routine, line care warfarin (Coumadin) tablet 6 mg 6 mg, Oral, Daily, First dose on 09/06/25 at 1700, Until Discontinued, Routine Given 09/06/2025 6:02 PM EST 6 mg warfarin (Coumadin) tablet 6 mg 6 mg, Oral, Every other day, First dose on Tu09/08/25 at 1700, Until Discontinued, Routine warfarin (Coumadin) tablet 7 mg 7 mg, Oral, Every other day, First dose on 09/07/25 at 1700, Until Discontinued, Routine Given 09/07/2025 6:08 PM EST 7 mg documented in this encounter Active and Recently Administered Medications Times are shown in EST. Scheduled Medication Order 09/06/2025 09/07/2025 09/08/2025 aspirin chewable tablet 81 mg 81 mg, Oral, Daily, First dose on 09/06/25 at 2030, Until Discontinued, Routine 2042 (Given - Provider: Brianna Lara RN - Comment: pt takes med daily not for pain control) 0835 (Given - Provider: Daniella Mattson CNA) 0829 (Given - Provider: Lian Long RN) enoxaparin (Lovenox) syringe 100 mg 100 mg (rounded from 101 mg = 1 mg/kg 101 kg), Subcutaneous, Every 12 hours, First dose on 09/06/25 at 1050, Until Discontinued, Routine 1100 (Not Given - Provider: Earl Saba RN - Reason: Patient/Family/Repres entative Refused)1803 (Given - Provider: Indira Bliss RN) 0615 (Given - Provider: Brianna Lara RN)1809 (Given - Provider: Darlene Pizarro RN) 0501 (Given - Provider: Ashley Connolly RN) furosemide (Lasix) injection 40 mg (COMPLETED) 40 mg, Intravenous, Once, 1 dose, On 09/06/25 at 0530, STAT 0607 (Given - Provider: Reji Simons RN) furosemide (Lasix) injection 40 mg (COMPLETED) 40 mg, Intravenous, Once, 1 dose, On Sun09/07/25 at 0900, Routine 0835 (Given - Provider: Daniella Mattson CNA) iohexol (OMNIPaque) 350 MG/ML injection 100 mL (COMPLETED) 100 mL, Intravenous, Once in imaging, 1 dose, Starting on 09/06/25 at 0140, Until 09/06/25 at 0145, Routine, Imaging Protocol Orders 0145 (Given - Provider: Gregg Wang) levothyroxine (Synthroid, Levoxyl) tablet 125 mcg 125 mcg, Oral, Every morning, First dose on 09/06/25 at 0750, Until Discontinued, Routine 0820 (Given - Provider: Earl Saba RN) 0615 (Given - Provider: Brianna Lara RN) 0501 (Given - Provider: Ashley Connolly RN) metoprolol succinate XL (Toprol-XL) 24 hr tablet 12.5 mg 12.5 mg, Oral, Nightly, First dose on 09/06/25 at 2100, Until Discontinued, Routine 2042 (Given - Provider: Brianna Lara RN) 2325 (Not Given - Provider: Ashley Connolly RN - Reason: Hold for condition: must add comment - Comment: hold per Clarke Dueñas MD) montelukast (Singulair) tablet 10 mg 10 mg, Oral, Nightly, First dose on 09/06/25 at 2100, Until Discontinued, Routine 2017 (Given - Provider: Brianna Lara RN) 2118 (Given - Provider: Ashley Connolly RN) oxymetazoline (Afrin) 0.05 % nasal spray 2 spray 2 spray, Each Nostril, 2 times daily, 4 doses, First dose on Sun09/08/25 at 0930, Last dose on Sun09/09/25 at 2100, Routine 0930 (Canceled Entry - Provider: Automatic Discharge Provider - Comment: Automatically canceled at discontinue of medication order) polyethylene glycol (Miralax) packet 17 g 17 g, Oral, Daily, First dose on Sun09/07/25 at 1015, Until Discontinued, Routine 1124 (Given - Provider: Darlene Pizarro RN) 0828 (Given - Provider: Lian Long RN) sodium chloride 0.9 % flush 10 mL(Linked Group 1) 10 mL, Intravenous, Every 12 hours, First dose on 09/06/25 at 0640, Until Discontinued, Routine 0639 (Canceled Entry - Provider: Reji Simons RN)1803 (Given - Provider: Indira Bliss, LEIGHA) 0615 (Given - Provider: Brianna Lara, LEIGHA)1930 (Not Given - Provider: Lian Long RN - Reason: Patient/Family/Repre sentative Refused) 0625 (Given - Provider: Ashley Connolly RN) warfarin (Coumadin) tablet 6 mg (CANCELED) 6 mg, Oral, Daily, First dose on Sun09/06/25 at 1700, Until Discontinued, Routine 180 (Given - Provider: Indira Bliss, LEIGHA) warfarin (Coumadin) tablet 6 mg 6 mg, Oral, Every other day, First dose on Sun09/08/25 at 1700, Until Discontinued, Routine warfarin (Coumadin) tablet 7 mg 7 mg, Oral, Every other day, First dose on Sun09/07/25 at 1700, Until Discontinued, Routine 180 (Given - Provider: Darlene Pizarro RN) PRN Medication Order 09/06/2025 09/07/2025 09/08/2025 albuterol 108 (90 Base) MCG/ACT inhaler 2 puff 2 puff, Inhalation, Every 6 hours PRN, Starting on Sun09/06/25 at 2158, Until Sun09/08/25 at 1546, Routine, wheezing, shortness of breath 2203 (Given - Provider: Brianna Lara RN) ipratropium-albuterol (Duo-Neb) 0.5-2.5 mg/3 mL nebulizer solution 3 mL 3 mL, Nebulization, Every 6 hours PRN, Starting on Sun09/06/25 at 0637, Until Sun09/08/25 at 1546, Routine, wheezing, shortness of breath oxymetazoline (Afrin) 0.05 % nasal spray 2 spray 2 spray, Each Nostril, Every 12 hours PRN, Starting on Sun09/07/25 at 2048, Until Sun09/08/25 at 1546, Routine, congestion sodium chloride 0.9 % flush 10 mL(Linked Group 1) 10 mL, Intravenous, As needed, Starting on Sun09/06/25 at 0633, Until Sun09/08/25 at 1546, Routine, line care Linked Groups Order Group 1: Insert peripheral IV (CANCELED) Once, On 09/06/25 at 0634, For 1 occurrence And Saline lock IV (CANCELED) Once, On 09/06/25 at 0634, For 1 occurrence And sodium chloride 0.9 % flush 10 mLJump to med 10 mL, Intravenous, Every 12 hours, First dose on 09/06/25 at 0640, Until Discontinued, Routine And sodium chloride 0.9 % flush 10 mLJump to med 10 mL, Intravenous, As needed, Starting on 09/06/25 at 0633, Until 09/08/25 at 1546, Routine, line care documented in this encounter Additional Health Concerns Infection Onset Date Last Indicated Resolved Time COVID-19 Rule-Out 09/05/2025 09/05/2025 09/06/2025 12:21 AM EST Assessment Noted Time PHQ-9 Depression Total Score: 0 06/19/20 9:52 AM EDT A fall risk assessment has been complete d for the patient 08/21/2025 11:01 AM EST A Body Mass Index follow-up plan has been documented for the patient 09/08/2025 11:42 AM EST documented as of this encounter Care Teams Lace Stripper Relationship Specialty Start Date End Date Espinoza Thakur MD [address] [place] [address] [address] [place] Smith [id number] PCP - General 02/11/21 documented as of this encounter
--- OUTSIDE RECORDS SUMMARY | 2025-09-10 13:00 | XMS_ITS | Encounter Summary ---
Author Organization [facility] Address [address] [place] [address] Care Team Providers Care Prison Librarian Name Role Phone Espinoza Thakur MD Primary Care Provider [phone] Vanda Greenberg LPN Unavailable Unavailable Reason for Referral * Consultation (Routine) - Authorized Specialty Diagnoses / Procedures Referred By Neema burger Referred To Contact Diagnoses Atrial fibrillation, unspecified type (CMS/HCC) Tanja Parsons MD [address] [place] [address] Phone: tel: fax: Referral ID Status Reason Start Date Expiration Date V isits Requested Visits Authorized [id number] Authorized 09/10/2025 03/12/2027 1 1 Reason for Visit * Consultation (Routine) - Closed Specialty Diagnoses / Procedures Referred By Neema burger Referred To Contact Diagnoses Atrial fibrillation, unspecified type (CMS/HCC) Jenny Tolentino PA [address] [place] [address] Phone: tel: fax: Referral ID Status Reason Start Date Expiration Date Visits Re quested Visits Authorized [id number] Closed 03/12/2025 09/11/2026 1 1 Encounter Details Date Type Department Care Team (Late st Contact Info) Description 09/10/2025 1:00 PM EST Office Visit [facility] [place] [address] [facility]. [address] [place] [address] Tanja Parsons MD [address] [place] [address] Atrial fibrillation, unspecified type (CMS/HCC) [...] any time in the past 12 m [facility], were you homeless or living in a long term (including now)? No 09/09/2025 [facility] Utilities Answer Date Recorded In the past 12 months has th e [employer], gas, oil, or water company threatened to [...] * BP Answer Date of Assessment Author 92/65 09/10/2025 1:37 PM EST Long L eslie * Pulse Answer Date of Assessment Author 71 09/10/2025 1:37 PM EST Long L eslie * SpO2 Answer Date of Assessment Author 94 09/10/2025 1:37 PM EST Ethan Jasmyn * Weight Answer Date of Assessment Author 3608.49 09/10/2025 1:37 PM EST Long L eslie * Total Weight Change Percent Answer Date of Assessment Author 2222 09/10/2025 1:37 PM EST Long L eslie * Weight Change Since Preop Answer Date of Assessment Author 102.28 09/10/2025 1:37 PM EST Long L eslie * Weight Change Since Last Visit Answer Date of Assessment Author 102.28 09/10/2025 1:37 PM Cheryl Vo * Weight Change 24 hrs Answer Date of Assessment Author -.6 09/10/2025 1:37 PM Cheryl Vo * Depression Screening Question Answer Date of Assessment Author Will the patient answer the depression risk questions? Yes 09/10/2025 1:43 PM Jasmyn Vo * Over the past [...] 0 08/31 1:43 PM Jasmyn Vo * Over the past 2 weeks, how often have you been bothered by any of the following problems? Question Answer Date of Assessment Author Trouble [...] all 09/10/2025 1:43 PM Jasmyn Church * AUDIT-C Score Answer Date of Assessment Author 0 09/10/2025 1:39 PM Cheryl Vo * Alcohol Use Question Answer Date of Assessment Author Q1: [...] Never 09/10/2025 1:39 PM Jasmyn Vo * Weight Change Since Preop Answer Date of Assessment Author 102.3 09/10/2025 1:37 PM Cheryl Vo * Weight Change Since Last Visit Answer Date of Assessment Author 102.3 09/10/2025 1:37 PM Cheryl Vo * Difference in Weight Since Last Visit Answer Date of Assessment Author -0.6 09/10/2025 1:37 PM Cheryl Vo * C-SSRS (Screener) Question Answer Date of Assessment Author Is patient awake, alert, and able/willing to answer questions appropriately? Yes 09/10/2025 1:43 PM Jasmyn Vo 1. Wish to be (Past 1 Month) No 025 1:43 PM Jasmyn Vo 2. Non-Specific Active Suici jon Thoughts (Past 1 Month) No 09/10/2025 1:43 PM Jasmyn Vo 6. Suicidal Behavior (Lifetime) No 1:43 PM Jasmyn Vo * BP Answer Date of Assessment Author 92/65 09/10/2025 1:37 PM Cheryl Vo eslie * Pulse Answer Date of Assessment Author 71 09/10/2025 1:37 PM EST Long L eslie * SpO2 Answer Date of Assessment Author 94 09/10/2025 1:37 PM EST Long, L eslie * Weight Answer Date of Assessment Author 3608.49 09/10/2025 1:37 PM Cheryl Vo eslie * Over the past 2 weeks, how often have you been bothered by any of the following problems? Question Answer Date of Assessment Author Little interest or pleasure in doing things Not at all 09/10/2025 1:43 PM Jasymn Vo Feeling down, depressed, or hopeless Not at all 08/31 1:43 PM Jasmyn Vo Patient Health Questionnaire-2 Score 0 08/31 1:43 PM Jasmyn Vo * Over the past 2 weeks, how often have you been bothered by any of the following problems? Question Answer Date of Assessment Author Trouble [...] 09/10/2025 1:43 PM Jasmyn Vo Patient Health Questionnaire -9 Score 0 09/10/2025 1:43 PM Jasmyn Vo * Calculated C-SSRS [...] all 09/10/2025 1:43 PM Jasmyn Church * Learning Needs Screening Question Answer Date of Assessment Author Are there things (barriers) that make it harder for this patient to learn? No Barriers 09/10/2025 1:40 PM Jasmyn Vo What is the best language to use for teaching this patient about his/her health? Mozambican 09/10/2025 1:40 PM Jasmyn Vo What format does this patien t think is most helpful for learning? Listening;Reading 09/10/2025 1:40 PM Jasmyn Vo Primary Learner Parent/Guardian 09/10/2025 1:40 PM Jasmyn Vo * C-SSRS (Screener) Question Answer Date of Assessment Author Is patient awake, alert, and able/willing to answer questions appropriately? Yes 09/10/2025 1:43 PM Jasmyn Vo 1. Wish to be (Past 1 Month) No 025 1:43 PM Jasmyn Vo 2. Non-Specific Active Suici jon Thoughts (Past 1 Month) No 09/10/2025 1:43 PM Jasmyn Vo 6. Suicidal Behavior (Lifetime) No 1:43 PM Jasmyn Vo documented as of this encounter Mental Status * BP Answer Entry Date Author 92/65 09/10/2025 1:37 PM Cheryl Vo * Pulse Answer Entry Date Author 71 09/10/2025 1:37 PM Cheryl Vo * SpO2 Answer Entry Date Author 94 09/10/2025 1:37 PM Cheryl Vo * Weight Answer Entry Date Author 3608.49 09/10/2025 1:37 PM Cheryl Vo * Total Weight Change Percent Answer Entry Date Author 2222 09/10/2025 1:37 PM Cheryl Vo * Weight Change Since Preop Answer Entry Date Author 102.28 09/10/2025 1:37 PM Cheryl Vo * Weight Change Since Last Visit Answer Entry Date Author 102.28 09/10/2025 1:37 PM Cheryl oV * Weight Change 24 hrs Answer Entry Date Author -.6 09/10/2025 1:37 PM Cheryl Vo * Depression Screening Question Answer Entry Date Author Will the patient answer the depression risk questions? Yes 09/10/2025 1:43 PM Jasmyn Vo * Over the past 2 weeks, how often have you been bothered by any of the following problems? Question Answer Entry Date Author Little interest or pleasure in doing things Not at all 09/10/2025 1:43 PM Jasmyn Vo Feeling down, depressed, or hopeless Not at all 08/31 1:43 PM Jasmyn oV Patient Health Questionnaire-2 Score 0 08/31 1:43 PM Jasmyn Vo * Over the past 2 weeks, how often have you been bothered by any of the following problems? Question Answer Entry Date Author Trouble falling or staying a sleep, [...] usual Not at all 09/10/2025 1:43 PM EST Jasmyn Long Thoughts that you would be b mirella off or hurting yourself in some way Not at all 09/10/2025 1:43 PM EST Keri Longe Patient Health Questionnaire-9 Score 0 08/31 1:43 PM EST Jasmyn Long * Alcohol Use Concern Calculation Answer Entry Date Author 1 09/10/2025 1:39 PM EST Ethan L eslie * [facility] HRSN Mental Health Concern Calculation Answer Entry Date Author 3 09/10/2025 1:43 PM EST Long L eslie * Calculated C-SSRS Risk Score (Lifetime/Recent) Answer Entry Date Author No Risk Indicated 09/10/2025 1:43 PM Jasmyn Vo * How difficult have these problems made it for you to do your work, take care of things at home, or get along with other people? Answer Entry Date Author Not difficult at all 09/10/2025 1:43 PM Jasmyn Church * Skip to questions 9-10? Answer Entry Date Author 1 09/10/2025 1:39 PM EST Long L eslie * Weight Change Since Preop Answer Entry Date Author 102.3 09/10/2025 1:37 PM EST Long L eslie * Weight Change Since Last Visit Answer Entry Date Author 102.3 09/10/2025 1:37 PM EST Long L eslie * Difference in Weight Since Last Visit Answer Entry Date Author -0.6 09/10/2025 1:37 PM EST Ethan L eslie * C-SSRS (Screener) Question Answer Entry Date Author Is patient awake, alert, and able/willing to answer questions appropriately? Yes 09/10/2025 1:43 PM Jasmyn Vo 1. Wish to be (Past 1 Month) No 025 1:43 PM Jasmyn Vo 2. Non-Specific Active Suici jon Thoughts (Past 1 Month) No 09/10/2025 1:43 PM Jasmyn Vo 6. Suicidal Behavior (Lifetime) No 1:43 PM Jasmyn Vo documented in this encounter Miscellaneous Notes * Progress Notes - Tanja Parsons MD - 09/10/2025 1:00 PM EST [facility] Electrophysiology Note Service Consulted: Electrophysiology. Referring Provider : Jenny Tolentino PA PCP : Espinoza Thakur MD History Of Present Illness: Kusum Sanchez is a 40 y.o. 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, [place]), s/p 27mm [facility] Eli[facility] [...] QT Interval 440 QTC Interval 478 R Meridian 236 T Wave Meridian 59 Diagnosis Biventricular pacemaker detected Diagnosis Ventricular-paced rhythm Diagnosis Baseline Artifact Electrode noise Diagnosis Abnormal ECG Diagnosis Diagnosis Confirmed by Jass Stafford ([id number]) on 09/06/2025 12:22:26 PM *Note: Due to [...] alcohol and does not use drugs. Allergies: [place] and Doxycycline Medications: Current Medications[2] Relevant Labs: Lab Results Component Value Date/Time WBC 9.73 09/07/20254 WBC 6.41 09/05/20252225 WBC 5.64 05/18/202116 RBC 4.42 09/07/2025 0354 RBC 4.67 09/05/20252225 RBC 4.26 05/18/202116 HGB 14.6 09/07/2025353 HGB 15.5 09/05/20252225 HGB 13.9 05/18/202116 HCT 43.4 09/07/20254 HCT 45.9 (H) 09/05/20252225 HCT 41.1 05/18/202116 Lab Results Component Value Date/Time BUN 19 [...] performed in the clinic ) : - Wood Lather : Kat - Device type : multilead chamber pacemaker [...] 1 (one) time each day. sodium chloride (Cobb) 0.65 % nasal spray Administer 1 spray [...] Description 10/22/2025 1:40 PM EST Office Visit [facility] Sleep Disorder Center [address] [place] [address] Lavern Galdamez APRN [address] [place] [address] 02/08/2026 12:30 PM EDT Office Visit [facility] Medicine Specialties [address], [address] [place] [address] Emi Orozco, PA [address] [place] [address] 02/10/2026 12:20 PM EDT Office Visit [facility] Women's Health [address], [address] [place] [address] Hannah Tang MD [address] [place] [address] 03/11/2026 2:40 PM EDT Office Visit [facility] [place] [address] [place] [address] Tanja Parsons MD [address] [place] [address] 2026 1:00 PM EDT Appointment Cardiac Imaging [address] [place] [address] 2026 2:40 PM EDT Office Visit [facility] [place] [address] [place] [address] Jordon Tidwell MD [address] [place] [address] Scheduled Referrals Name Type Priority Associated Diagnoses Orde r Schedule Follow Up Cardiology Outpatient Referral Routine Atrial fibrillation, unspecified type (CMS/HCC) Expected: 03/11/2026, Expires: 03/11/2027 documented as of this encounter Visit Diagnoses Diagnosis Atrial fibrillation, unspecified type (CMS/HCC)- Primary documented in this encounter Additional Health Concerns Assessment Noted Time PHQ-9 Depression Total Score: 0 09/10/20 25 1:43 PM EST A fall risk assessment has been complete d for the patient 09/10/2025 1:43 PM EST A Body Mass Index follow-up plan has been documented for the patient 09/10/2025 1:59 PM EST documented as of this encounter Care Teams Prison Librarian Relationship Specialty Start Date End Date Espinoza Thakur MD [address] [place] [address] #1 #1 [place] [address] PCP - General 02/11/21 Vanda Greenberg LPN None None TCM Nurse 09/09/25 documented as of this encounter
--- OUTSIDE RECORDS SUMMARY | 2025-09-18 13:00 | XMS_ITS | Encounter Summary ---
Author Organization [facility] Address [address] [id number] Care Team Providers Care Manager Floor Name Role Phone Espinoza Thakur MD Primary Care Provider [phone] Vanda Greenberg LPN Unavailable Unavailable Reason for Visit * Reason Comments Hospital Follow Up * Consultation (Routine) - Closed Specialty Diagnoses / Procedures Referred By Contac t Referred To Contact Cardiology Diagnoses Acute diastolic heart failure secondary to hypertrophic obstructive cardiomyopathy Risa Crisostomo MD [address] [place] [address] Phone: tel: fax: Jordon Tidwell MD [address] [place] [address] Phone: tel: fax: Referral ID Status Reason Start Date Expiration Date V isits Requested Visits Authorized [id number] Closed Specialty Services Required 09/08/2025 03/10/2027 1 1 Encounter Details Date Type Department Care Team (Late st Contact Info) Description 09/18/2025 1:00 PM EST Office Visit [facility] [address] [facility] [place] [address] Jordon Tidwell MD [address] [place] [address] AV canal (Primary Dx) Social History Tobacco Use Types [...] any time in the past 12 m [facility], were you homeless or living in a long-term (including now)? No 09/09/2025 [facility] Utilities Answer Date Recorded In the past [...] Sign Reading Time Taken Comments Blood Pressure 137/80 09/18/2025 12:52 PM EST Pulse 72 09/18/2025 12:52 PM EST Temperature - - Respiratory Rate - - Oxygen Saturation 94% 09/18/2025 12:52 PM EST Inhaled Oxygen Concentration - - Weight 99.8 kg (220 lb 0.3 oz) 09/18/2025 12:52 PM EST Height 149.9 cm (4' 11 ) 09/18/2025 12:52 PM EST Body Mass Index 44.44 09/18/2025 12:52 PM EST documented in this encounter Functional Status * BP Answer Date of Assessment Author 137/80 09/18/2025 12:52 PM EST Honeycut t, Ashley * Pulse Answer Date of Assessment Author 72 09/18/2025 12:52 PM EST Honeycut t, Ashley * SpO2 Answer Date of Assessment Author 94 09/18/2025 12:52 PM EST Honeycut t, Ashley * Height Answer Date of Assessment Author 59 09/18/2025 12:52 PM EST Honeycut t, Ashley * Weight Answer Date of Assessment Author 3520.31 09/18/2025 12:52 PM EST Honeycut t, Ashley * BMI (Calculated) Answer Date of Assessment Author 44.5 09/18/2025 12:52 PM EST Honeycut t, Ashley * Percent Excess Weight Loss Answer Date of Assessment Author 0 09/18/2025 12:52 PM EST Honeycut t, Ashley * Total Weight Change Percent Answer Date of Assessment Author 222109/18/2025 12:52 PM EST Honeycut t, Ashley * Weight Change Since Preop Answer Date of Assessment Author 99.78 09/18/2025 12:52 PM EST Honeycut t, Ashley * Initial Excess Weight Answer Date of Assessment Author -43.09 09/18/2025 12:52 PM EST Honeycut t, Ashley * IBW in lbs (Bariatric) Answer Date of Assessment Author 95 09/18/2025 12:52 PM EST Honeycut t, Ashley * Weight Change Since Last Visit Answer Date of Assessment Author 99.78 09/18/2025 12:52 PM EST Honeycut t, Ashley * IBW in kg (Bariatric) Answer Date of Assessment Author 43.09 09/18/2025 12:52 PM EST Honeycut t, Ashley * Percent of IBW Answer Date of Assessment Author 8,169.67 09/18/2025 12:52 PM EST Honeycut t, Ashley * EBW (kg) Answer Date of Assessment Author 3,519.09 09/18/2025 12:52 PM EST Honeycut t, Ashley * EBW (lbs) Answer Date of Assessment Author 3,514.37 09/18/2025 12:52 PM EST Honeycut t, Ashley * Weight Change 24 hrs Answer Date of Assessment Author -2.5 09/18/2025 12:52 PM EST Honeycut t, Ashley * BSA (Calculated - sq m) Answer Date of Assessment Author 2.04 09/18/2025 12:52 PM EST Honeycut t, Ashley * BMI (Calculated) Answer Date of Assessment Author 44.41 09/18/2025 12:52 PM EST Honeycut t, Ashley * IBW/kg (Calculated) Male Answer Date of Assessment Author 47.7 09/18/2025 12:52 PM EST Honeycut t, Ashley * IBW/kg (Calculated) Female Answer Date of Assessment Author 43.2 09/18/2025 12:52 PM EST Honeycut t, Ashley * IBW/kg (Calculated) Answer Date of Assessment Author 43.2 09/18/2025 12:52 PM EST Honeycut t, Ashley * Weight in (lb) to have BMI = 25 Answer Date of Assessment Author 123.5 09/18/2025 12:52 PM EST Honeycut t, Ashley * BMI (Calculated) Answer Date of Assessment Author 44.5 09/18/2025 12:52 PM EST Honeycut t, Ashley * Percent Excess Weight Loss Answer Date of Assessment Author 0 09/18/2025 12:52 PM EST Honeycut t, Ashley * Weight Change Since Preop Answer Date of Assessment Author 99.8 09/18/2025 12:52 PM EST Honeycut t, Ashley * Initial Excess Weight Answer Date of Assessment Author -43.09 09/18/2025 12:52 PM EST Honeycut t, Ashley * IBW in kg (Bariatric) Answer Date of Assessment Author 43.09 09/18/2025 12:52 PM EST Honeycut t, Ashley * IBW in lb (Bariatric) Answer Date of Assessment Author 95 09/18/2025 12:52 PM EST Honeycut t, Ashley * Weight Change Since Last Visit Answer Date of Assessment Author 99.8 09/18/2025 12:52 PM EST Honeycut t, Ashley * Percent of IBW Answer Date of Assessment Author 231.6 09/18/2025 12:52 PM EST Honeycut t, Ashley * EBW (kg) Answer Date of Assessment Author 56.69 09/18/2025 12:52 PM EST Honeycut t, Ashley * EBW (lb) Answer Date of Assessment Author 125.02 09/18/2025 12:52 PM EST Honeycut t, Ashley * Difference in Weight Since Last Visit Answer Date of Assessment Author -2.5 09/18/2025 12:52 PM EST Honeycut t, Ashley * IBW/kg (Calculated) Answer Date of Assessment Author 43.2 09/18/2025 12:52 PM EST Honeycut t, Ashley * Adult Low Range Vt 6mL/kg Answer Date of Assessment Author 259.2 09/18/2025 12:52 PM EST Honeycut t, Ashley * Adult Moderate Range Vt 8mL/kg Answer Date of Assessment Author 345.6 09/18/2025 12:52 PM EST Honeycut t, Ashley * Adult High Range Vt 10mL/kg Answer Date of Assessment Author 432 09/18/2025 12:52 PM EST Honeycut t, Ashley * BP Answer Date of Assessment Author 137/80 09/18/2025 12:52 PM EST Honeycut t, Ashley * Pulse Answer Date of Assessment Author 72 09/18/2025 12:52 PM EST Honeycut t, Ashley * SpO2 Answer Date of Assessment Author 94 09/18/2025 12:52 PM EST Honeycut t, Ashley * Height Answer Date of Assessment Author 59 09/18/2025 12:52 PM EST Honeycut t, Ashley * Weight Answer Date of Assessment Author 3520.31 09/18/2025 12:52 PM EST Honeycut t, Ashley * BSA (Calculated - sq m) Answer Date of Assessment Author 2.04 09/18/2025 12:52 PM EST Honeycut t, Ashley * BMI (Calculated) Answer Date of Assessment Author 44.41 09/18/2025 12:52 PM EST Honeycut t, Ashley * Weight in (lb) to have BMI = 25 Answer Date of Assessment Author 123.5 09/18/2025 12:52 PM EST Honeycut t, Ashley documented as of this encounter Mental Status * BP Answer Entry Date Author 137/80 09/18/2025 12:52 PM EST Honeycut t, Ashley * Pulse Answer Entry Date Author 72 09/18/2025 12:52 PM EST Honeycut t, Ashley * SpO2 Answer Entry Date Author 94 09/18/2025 12:52 PM EST Honeycut t, Ashley * Height Answer Entry Date Author 59 09/18/2025 12:52 PM EST Honeycut t, Ashley * Weight Answer Entry Date Author 3520.31 09/18/2025 12:52 PM EST Honeycut t, Ashley * BMI (Calculated) Answer Entry Date Author 44.5 09/18/2025 12:52 PM EST Honeycut t, Ashley * Percent Excess Weight Loss Answer Entry Date Author 0 09/18/2025 12:52 PM EST Honeycut t, Ashley * Total Weight Change Percent Answer Entry Date Author 222109/18/2025 12:52 PM EST Honeycut t, Ashley * Weight Change Since Preop Answer Entry Date Author 99.78 09/18/2025 12:52 PM EST Honeycut t, Ashley * Initial Excess Weight Answer Entry Date Author -43.09 09/18/2025 12:52 PM EST Honeycut t, Ashley * IBW in lbs (Bariatric) Answer Entry Date Author 95 09/18/2025 12:52 PM EST Honeycut t, Ashley * Weight Change Since Last Visit Answer Entry Date Author 99.78 09/18/2025 12:52 PM EST Honeycut t, Ashley * IBW in kg (Bariatric) Answer Entry Date Author 43.09 09/18/2025 12:52 PM EST Honeycut t, Ashley * Percent of IBW Answer Entry Date Author 8,169.67 09/18/2025 12:52 PM EST Honeycut t, Ashley * EBW (kg) Answer Entry Date Author 3,519.09 09/18/2025 12:52 PM EST Honeycut t, Ashley * EBW (lbs) Answer Entry Date Author 3,514.37 09/18/2025 12:52 PM EST Honeycut t, Ashley * Weight Change 24 hrs Answer Entry Date Author -2.5 09/18/2025 12:52 PM EST Honeycut t, Ashley * BSA (Calculated - sq m) Answer Entry Date Author 2.04 09/18/2025 12:52 PM EST Honeycut t, Ashley * BMI (Calculated) Answer Entry Date Author 44.41 09/18/2025 12:52 PM EST Honeycut t, Ashley * IBW/kg (Calculated) Male Answer Entry Date Author 47.7 09/18/2025 12:52 PM EST Honeycut t, Ashley * IBW/kg (Calculated) Female Answer Entry Date Author 43.2 09/18/2025 12:52 PM EST Honeycut t, Ashley * IBW/kg (Calculated) Answer Entry Date Author 43.2 09/18/2025 12:52 PM EST Honeycut t, Ashley * Weight in (lb) to have BMI = 25 Answer Entry Date Author 123.5 09/18/2025 12:52 PM EST Honeycut t, Ashley * BMI (Calculated) Answer Entry Date Author 44.5 09/18/2025 12:52 PM EST Honeycut t, Ashley * Percent Excess Weight Loss Answer Entry Date Author 0 09/18/2025 12:52 PM EST Honeycut t, Sahley * Weight Change Since Preop Answer Entry Date Author 99.8 09/18/2025 12:52 PM EST Honeycut t, Ashley * Initial Excess Weight Answer Entry Date Author -43.09 09/18/2025 12:52 PM EST Honeycut t, Ashley * IBW in kg (Bariatric) Answer Entry Date Author 43.09 09/18/2025 12:52 PM EST Honeycut t, Ashley * IBW in lb (Bariatric) Answer Entry Date Author 95 09/18/2025 12:52 PM EST Honeycut t, Ashley * Weight Change Since Last Visit Answer Entry Date Author 99.8 09/18/2025 12:52 PM EST Honeycut t, Ashley * Percent of IBW Answer Entry Date Author 231.6 09/18/2025 12:52 PM EST Honeycut t, Ashley * EBW (kg) Answer Entry Date Author 56.69 09/18/2025 12:52 PM EST Honeycut t, Ashley * EBW (lb) Answer Entry Date Author 125.02 09/18/2025 12:52 PM EST Honeycut t, Ashley * Difference in Weight Since Last Visit Answer Entry Date Author -2.5 09/18/2025 12:52 PM EST Honeycut t, Ashley * IBW/kg (Calculated) Answer Entry Date Author 43.2 09/18/2025 12:52 PM EST Honeycut t, Ashley * Adult Low Range Vt 6mL/kg Answer Entry Date Author 259.2 09/18/2025 12:52 PM EST Honeycut t, Ashley * Adult Moderate Range Vt 8mL/kg Answer Entry Date Author 345.6 09/18/2025 12:52 PM EST Honeycut t, Ashley * Adult High Range Vt 10mL/kg Answer Entry Date Author 432 09/18/2025 12:52 PM EST Honeycut t, Ashley documented in this encounter Miscellaneous Notes * Progress Notes - Shani Botello, OBSTETRICIAN AND GYNAECOLOGIST - 09/18/2025 1:00 PM EST Sharona Sanchez is a 40 y.o. 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 [facility] MVR + Tricuspid annuloplasty 2010 with post op course complicated by CHB requiring implant of [facility] [facility] BiVentricular Pacemaker and chronic atrial flutter whopresents today for as a post hospital discharge follow up. The pt was admitted from 09-05-2025 to 09-08-2025 for acute hypoxic respiratory failure. The patient presented with acute hypoxia following [...] were made for portable oxygen at home. Lasix was increased from 40 mg to 80 mg. Today the pt is accompanied by her sister and mother. Since discharge had not needed supplemental oxygen except at night or when walking outside of the house. Has appt with sleep clinic to have CPAP adjusted because was SAO2 during REM sleep is decreasing below 80%. Today denies SOA, chest pain or edema. Has appt in January 2026 for evaluation for weight loss medications. 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 Chavez at [facility] -01/20/2011 [facility] 27 mm prosthetic mitral valve replacement and tricuspid valve annuloplasty by Dr. Davis at [facility] -01/24/[address] [facility] Biventricular Pacemaker [address] Dr. Cui Cardiac Problems -complete heart block -chronic atrial flutter -congestive heart failure Other Medical Problems -[place] on CPAP and home O2 PRN -obesity -seasonal allergies -hypothyroid -on chronic anticoagulation with warfarin Diagnostic Studies: 06/15/2025 TTE LVEF 40-50% RV fx is normal with elevated RVSP 37 mmHg RAAV with annuloplasty ring with mild to mod regurgitation, MG 5 LAAV with mechanical valve with MG 6, no regurgitation Review of symptoms Constitutional: Negative for decreased appetite and weight gain. Cardiovascular: see HPI Respiratory: Negative for cough, shortness of breath [...] Normal rate and regular rhythm. Heart sounds: heart sounds are distant Pulmonary: Effort: Pulmonary effort is normal. Breath sounds: Normal breath sounds. Abdominal: General: Abdomen is round Palpations: Abdomen is soft. Skin: General: Skin is warm and dry. Neurological: General: No focal deficit present. Mental Status: She is alert and oriented to person, place, and time. Psychiatric: Mood and Affect: Mood normal. Behavior: Behavior normal. Visit Vitals BP 137/80 Pulse 72 Ht 1.499 m (4' 11 ) Wt 99.8 kg (220 lb 0.3 oz) SpO2 94% BMI 44.44 kg/m?? Labs Lab Results Component Value Date HGB 14.6 09/07/2025 HCT 43.4 09/07/2025 PLT 178 09/07/2025 ALT 28 09/05/2025 AST 30 09/05/2025 NA 139 09/07/2025 K 4.2 09/07/2025 CREATININE 0.68 09/07/2025 BUN 19 09/07/2025 CO2 28 09/07/2025 TSH 2.40 09/05/2025 INR 2.4 (H) 09/08/2025 Assessment and Plan Problem List[4] 40F with DS, S/P AV canal repair, ostium secundum defect repair, S/P [facility] mechanical MVR + tricuspid annuloplasty, developed CHB, S/P BiV PM and followed by [facility]. Has chronic atrial fib/flutter V-paced rhythm. Appears back to baseline since hospital discharge. Appears euvolemic on exam. Encouraged to continue to be as physically active as possible, rest when needed, and use oxygen when hypoxic - Okay to take any of the non-stimulant weight loss medications. -continue asa 81 mg for valve ppx -continue Lasix 80 mg daily -continue warfarin INR goal 2.5 to 3.5, managed by PCP at [place] -continue cpap -follow up with EP for management of pm FU with [facility] in June 2026 with TTE same day. A total time of 34 minutes was spent by MD and PARTHA addressing the current illness, reviewing records (prior imaging, lab work, etc), and formulating a plan. The patient is agreeable to the plan and all pertinent questions were answered. Patient was seen and assessed in collaboration with Dr. Tidwell who agrees with the above plan ofcare. Shani Botello, ANNY [1] Past Medical History: Diagnosis Date A-fib [...] REPLACE / REMOVE PACEMAKER N/A Permanent Pacemaker Senior Counsel [facility] [facility] from [facility] MITRAL VALVE REPLACEMENT OTHER SURGICAL HISTORY N/A Tricuspid Valve Annuloplasty from [facility] OTHER SURGICAL HISTORY N/A History of cardiac pacemaker from [facility] TONSILECTOMY, ADENOIDECTOMY, BILATERAL MYRINGOTOMY AND TUBES N/A Tonsillectomy With Adenoidectomy from [facility] [3] Current Outpatient Medications Medication Sig Dispense [...] PO) Take 1 tablet by mouth daily. furosemide (Lasix) 40 MG [...] 1 (one) time each day. sodium chloride (Homer) 0.65 % nasal spray Administer 1 spray [...] week. Take alone 3x times a week. CHOLECALCIFEROL PO Take 1,000 Units by mouth daily. (Patient not taking: Reported on 09/18/2025) No current facility-administered medications for this visit. [4] Patient Active Problem List Diagnosis Acute diastolic heart failure secondary to hypertrophic obstructive cardiomyopathy Allergic rhinitis Apnea, sleep Atrial fibrillation (CMS/HCC) Atrial flutter (CMS/HCC) Atrioventricular canal Status post mitral valve replacement Presence of cardiac pacemaker Obesity Hypothyroidism Down syndrome Complete heart block, post-surgical CHF (congestive heart failure) End of battery life of cardiac resynchronization therapy pacemaker ([employer]-P) Pacemaker complications, initial encounter Shortness of breath documented in this encounter Plan of Treatment Upcoming Encounters Date Type Department Care Team (Late st Contact Info) Description 10/22/2025 1:40 PM EST Office Visit [facility] [address] [place] [phone] Rudolph Lavern Mcdaniel, OBSTETRICIAN AND GYNAECOLOGIST [address] [place] [phone] 02/08/2026 12:30 PM EDT Office Visit [facility] [address] [place] [address] Emi Orozco PA [address] [place] [address] 02/10/2026 12:20 PM EDT Office Visit [facility] [address] [place] [address] Hannah Tang MD [address] [place] [address] 03/11/2026 2:40 PM EDT Office Visit [facility] [address] [facility] [place] [phone] Tanja Parsons MD [address] [place] [address] 2026 1:00 PM EDT Appointment Cardiac Imaging [address] [place] [phone] 2026 2:40 PM EDT Office Visit [facility] [address] [place] [phone] Jordon Tidwell MD [address] [place] [phone] documented as of this encounter Procedures Procedure Name Priority Date/Time Associated Diagnosis Comments ECG ADULT Routine 09/18/2025 12:59 PM EST AV canal documented in this encounter Results * ECG Adult (Now - Performed in your clinic) (09/18/2025 12:59 PM EST) EKG DIAGNOSIS CLASS Abnormal MUSE ECG Ventricular Rate 72 BPM MUSE ECG Atrial Rate 77 BPM MUSE ECG QRSD Interval 162 ms MUSE ECG QT Interval 454 ms MUSE ECG QTC Interval 497 ms MUSE ECG R [employer] -66 degrees MUSE ECG T Wave [employer] 82 degrees MUSE ECG Diagnosis Ventricular-pace d rhythm MUSE ECG Diagnosis Biventricular pacemaker detected MUSE ECG Diagnosis MUSE ECG Diagnosis MUSE ECG Diagnosis Confirmed by Phillip Sellers ([id number]) on 09/18/2025 3:38:34 PM MUSE ECG 09/18/2025 12:5 9 PM EST 09/18/2025 3:38 PM EST us Jordon Tidwell MD ECG ORDERABLES Final Resu lt MUSE ECG documented in this encounter Visit Diagnoses Diagnosis AV canal- Primary documented in this encounter Additional Health Concerns Assessment Noted Time PHQ-9 Depression Total Score: 0 09/10/20 1:43 PM EST A fall risk assessment has been complete d for the patient 09/10/2025 1:43 PM EST A Body Mass Index follow-up plan has been documented for the patient 09/18/2025 1:37 PM EST documented as of this encounter Care Teams Manager Floor Relationship Specialty Start Date End Date Espinoza Thakur MD [address] [place] [address] [address] [place] [id number] PCP - General 02/11/21 Vanda Greenberg LPN None None TCM Nurse 09/09/25 documented as of this encounter
--- OUTSIDE RECORDS SUMMARY | 2025-09-19 20:00 | XMS_ITS | Encounter Summary ---
Author Organization Healthcare Address [address] [place] [address] Care Team Providers Care Supervisor [employer] Name Role Phone Espinoza Thakur MD Primary Care Provider [phone] Vanda Greenberg LPN Unavailable Unavailable Reason for Visit * Other Medical (Routine) - Closed Specialty Diagnoses / Procedures Referred By Neema burger Referred To Contact Sleep Medicine Diagnoses KALEIGH (obstructive sleep apnea) Nocturnal hypoxemia Procedures Adult Sleep Study Overnight Polysomnography With CPAP Titration Lavern Galdamez APRN [address] [place] [address] Phone: tel: fax: Referral ID Status Reason Start Date Expiration Date V isits Requested Visits Authorized [id number] Closed Specialty Services Required 09/15/2025 03/17/2027 1 1 Encounter Details Date Type Department Care Team (Latest Contact Info) Description 09/19/2025 8:00 PM EST Clinical Support [facility] Sleep Disorder Center [address] [place] [address] Xiao Lopes KALEIGH (obstructive sleep apnea); Nocturnal hypoxemia Social History Tobacco Use Types Packs/Day Years [...] any time in the past 12 m [facility], were you homeless or living in a assisted (including now)? No 09/09/2025 [facility] Utilities Answer Date Recorded In the past [...] - Inhaled Oxygen Concentration - - Weight 98.9 kg (218 lb) 09/19/2025 7:30 PM EST Height 147.3 cm (4' 10 ) 09/19/2025 7:30 PM EST Body Mass Index 45.56 09/19/2025 7:30 PM EST documented in this encounter Functional Status * Height Answer Date of Assessment Author 58 09/19/2025 7:30 PM EST Donnie Lopes * Weight Answer Date of Assessment Author 3488 09/19/2025 7:30 PM Donnie Galo * BMI (Calculated) Answer Date of Assessment Author 45.7 09/19/2025 7:30 PM Donnie Galo * Percent Excess Weight Loss Answer Date of Assessment Author 0 09/19/2025 7:30 PM Donnie Galo * Total Weight Change Percent Answer Date of Assessment Author 2222 09/19/2025 7:30 PM Donnie Galo * Weight Change Since Preop Answer Date of Assessment Author 98.86 09/19/2025 7:30 PM Donnie Galo * Initial Excess Weight Answer Date of Assessment Author -40.82 09/19/2025 7:30 PM Donnie Galo * IBW in lbs (Bariatric) Answer Date of Assessment Author 90 09/19/2025 7:30 PM Donnie Galo * Weight Change Since Last Visit Answer Date of Assessment Author 98.86 09/19/2025 7:30 PM Donnie Galo * IBW in kg (Bariatric) Answer Date of Assessment Author 40.82 09/19/2025 7:30 PM Donnie Galo * Percent of IBW Answer Date of Assessment Author 8,544.83 09/19/2025 7:30 PM Donnie Galo * EBW (kg) Answer Date of Assessment Author 3,486.84 09/19/2025 7:30 PM Donnie Galo * EBW (lbs) Answer Date of Assessment Author 3,482.38 09/19/2025 7:30 PM Donnie Galo * Weight Change 24 hrs Answer Date of Assessment Author -.916 09/19/2025 7:30 PM Donnie Galo * BSA (Calculated - sq m) Answer Date of Assessment Author 2.01 09/19/2025 7:30 PM Donnie Galo * BMI (Calculated) Answer Date of Assessment Author 45.57 09/19/2025 7:30 PM Donnie Galo * IBW/kg (Calculated) Male Answer Date of Assessment Author 45.4 09/19/2025 7:30 PM Donnie Galo * IBW/kg (Calculated) Female Answer Date of Assessment Author 40.9 09/19/2025 7:30 PM Donnie Galo * IBW/kg (Calculated) Answer Date of Assessment Author 40.9 09/19/2025 7:30 PM Donnie Galo * Weight in (lb) to have BMI = 25 Answer Date of Assessment Author 119.4 09/19/2025 7:30 PM Donnie Galo * BMI (Calculated) Answer Date of Assessment Author 45.7 09/19/2025 7:30 PM Donnie Galo * Percent Excess Weight Loss Answer Date of Assessment Author 0 09/19/2025 7:30 PM Donnie Galo * Weight Change Since Preop Answer Date of Assessment Author 98.88 09/19/2025 7:30 PM Dnonie Galo * Initial Excess Weight Answer Date of Assessment Author -40.82 09/19/2025 7:30 PM Donnie Galo * IBW in kg (Bariatric) Answer Date of Assessment Author 40.82 09/19/2025 7:30 PM Donnie Galo * IBW in lb (Bariatric) Answer Date of Assessment Author 90 09/19/2025 7:30 PM Donnie Galo * Weight Change Since Last Visit Answer Date of Assessment Author -0.92 09/19/2025 7:30 PM Donnie Galo * Percent of IBW Answer Date of Assessment Author 242.22 09/19/2025 7:30 PM Donnie Galo * EBW (kg) Answer Date of Assessment Author 58.04 09/19/2025 7:30 PM Donnie Galo * EBW (lb) Answer Date of Assessment Author 128 09/19/2025 7:30 PM Donnie Galo * Difference in Weight Since Last Visit Answer Date of Assessment Author -0.92 09/19/2025 7:30 PM Donnie Galo * IBW/kg (Calculated) Answer Date of Assessment Author 40.9 09/19/2025 7:30 PM Donnie Galo * Adult Low Range Vt 6mL/kg Answer Date of Assessment Author 245.4 09/19/2025 7:30 PM Donnie Galo * Adult Moderate Range Vt 8mL/kg Answer Date of Assessment Author 327.2 09/19/2025 7:30 PM Donnie Galo * Adult High Range Vt 10mL/kg Answer Date of Assessment Author 409 09/19/2025 7:30 PM Donnie Galo * Height Answer Date of Assessment Author 58 09/19/2025 7:30 PM Donnie Galo * Weight Answer Date of Assessment Author 3488 09/19/2025 7:30 PM Donnie Galo * BSA (Calculated - sq m) Answer Date of Assessment Author 2.01 09/19/2025 7:30 PM Donnie Galo * BMI (Calculated) Answer Date of Assessment Author 45.57 09/19/2025 7:30 PM Donnie Galo * Weight in (lb) to have BMI = 25 Answer Date of Assessment Author 119.4 09/19/2025 7:30 PM Donnie Galo documented as of this encounter Mental Status * Height Answer Entry Date Author 58 09/19/2025 7:30 PM Donnie Galo * Weight Answer Entry Date Author 3488 09/19/2025 7:30 PM Donnie Galo * BMI (Calculated) Answer Entry Date Author 45.7 09/19/2025 7:30 PM Donnie Galo * Percent Excess Weight Loss Answer Entry Date Author 0 09/19/2025 7:30 PM Donnie Galo * Total Weight Change Percent Answer Entry Date Author 2222 09/19/2025 7:30 PM Donnie Galo * Weight Change Since Preop Answer Entry Date Author 98.86 09/19/2025 7:30 PM Donnie Galo * Initial Excess Weight Answer Entry Date Author -40.82 09/19/2025 7:30 PM Donnie Galo * IBW in lbs (Bariatric) Answer Entry Date Author 90 09/19/2025 7:30 PM Donnie Galo * Weight Change Since Last Visit Answer Entry Date Author 98.86 09/19/2025 7:30 PM Donnie Galo * IBW in kg (Bariatric) Answer Entry Date Author 40.82 09/19/2025 7:30 PM Donnie Galo * Percent of IBW Answer Entry Date Author 8,544.83 09/19/2025 7:30 PM Donnie Galo * EBW (kg) Answer Entry Date Author 3,486.84 09/19/2025 7:30 PM Donnie Galo * EBW (lbs) Answer Entry Date Author 3,482.38 09/19/2025 7:30 PM Donnie Galo * Weight Change 24 hrs Answer Entry Date Author -.916 09/19/2025 7:30 PM Donnie Galo * BSA (Calculated - sq m) Answer Entry Date Author 2.01 09/19/2025 7:30 PM Donnie Galo * BMI (Calculated) Answer Entry Date Author 45.57 09/19/2025 7:30 PM Donnie Galo * IBW/kg (Calculated) Male Answer Entry Date Author 45.4 09/19/2025 7:30 PM Donnie Galo * IBW/kg (Calculated) Female Answer Entry Date Author 40.9 09/19/2025 7:30 PM Donnie Galo * IBW/kg (Calculated) Answer Entry Date Author 40.9 09/19/2025 7:30 PM Donnie Galo * Weight in (lb) to have BMI = 25 Answer Entry Date Author 119.4 09/19/2025 7:30 PM Donnie Galo * BMI (Calculated) Answer Entry Date Author 45.7 09/19/2025 7:30 PM Donnie Galo * Percent Excess Weight Loss Answer Entry Date Author 0 09/19/2025 7:30 PM Donnie Galo * Weight Change Since Preop Answer Entry Date Author 98.88 09/19/2025 7:30 PM EST Donnie Lopes * Initial Excess Weight Answer Entry Date Author -40.82 09/19/2025 7:30 PM EST Donnie Lopes * IBW in kg (Bariatric) Answer Entry Date Author 40.82 09/19/2025 7:30 PM EST Donnie Lopes * IBW in lb (Bariatric) Answer Entry Date Author 90 09/19/2025 7:30 PM EST Donnie Lopes * Weight Change Since Last Visit Answer Entry Date Author -0.92 09/19/2025 7:30 PM EST Donnie Lopes * Percent of IBW Answer Entry Date Author 242.22 09/19/2025 7:30 PM EST Donnie Lopes * EBW (kg) Answer Entry Date Author 58.04 09/19/2025 7:30 PM EST Donnie Lopes * EBW (lb) Answer Entry Date Author 128 09/19/2025 7:30 PM EST Donnie Lopes * Difference in Weight Since Last Visit Answer Entry Date Author -0.92 09/19/2025 7:30 PM EST Donnie Lopes * IBW/kg (Calculated) Answer Entry Date Author 40.9 09/19/2025 7:30 PM EST Donnie Lopes * Adult Low Range Vt 6mL/kg Answer Entry Date Author 245.4 09/19/2025 7:30 PM EST oDnnie Lopes * Adult Moderate Range Vt 8mL/kg Answer Entry Date Author 327.2 09/19/2025 7:30 PM EST Donnie Lopes * Adult High Range Vt 10mL/kg Answer Entry Date Author 409 09/19/2025 7:30 PM EST Donnie Lopes documented in this encounter Miscellaneous Notes * Patient Instructions - Jefry Lopes - 09/19/2025 8:00 PM EST Thank you for allowing us to care for you during your overnight stay. You should expect to hear from staff within the next 7-10 business days regarding your results. If you have any questions or concerns, please contact us during normal business hours: Sunday-Sunday 8:00AM -4:30 PM, . We thank you for giving us the opportunity to take care of you! documented in this encounter Plan of Treatment Upcoming Encounters Date Type Department Care Team (Late st Contact Info) Description 10/22/2025 1:40 PM EST Office Visit [facility] Sleep Disorder Center [address] [place] [phone] Lavern Galdamez, PARTS PERSON [address] [place] [phone] 02/08/2026 12:30 PM EDT Office Visit [facility] [address] [place] [address] Emi Orozco PA [address] [place] [address] 02/10/2026 12:20 PM EDT Office Visit [facility] [address] [place] [address] Hannah Tang MD [address] [place] [address] 03/11/2026 2:40 PM EDT Office Visit [facility] [address] [place] [address] Tanja Parsons MD [address] [place] [address] 2026 1:00 PM EDT Appointment Cardiac Imaging [address] [place] [phone] 2026 2:40 PM EDT Office Visit [facility] [address] [place] [phone] Jordon Tidwell MD [address] [place] [phone] documented as of this encounter Visit Diagnoses Diagnosis KALEIGH (obstructive sleep apnea) Obstructive sleep apnea (adult) (pediatric) Nocturnal hypoxemia documented in this encounter Additional Health Concerns Assessment Noted Time PHQ-9 Depression Total Score: 0 09/10/20 1:43 PM EST A fall risk assessment has been complete d for the patient 09/19/2025 7:31 PM EST A Body Mass Index follow-up plan has been documented for the patient 09/20/2025 4:52 AM EST documented as of this encounter Care Teams Supervisor [employer] Relationship Specialty Start Date End Date Espinoza Thakur MD [address] [place] [address] [address] [place] [address] PCP - General 02/11/21 Vanda Greenberg LPN None None TCM Nurse 09/09/25 documented as of this encounter
--- OUTSIDE RECORDS SUMMARY | 2025-09-25 13:00 | XMS_ITS | Encounter Summary ---
Author Organization Healthcare Address [address] [id number] Care Team Providers Care Invasive Cardiologist Name Role Phone Espinoza Thakur MD Primary Care Provider [phone] Vanda Greenberg LPN Unavailable Unavailable Reason for Visit * Reason Comments Follow-up Encounter Details Date Type Department Care Team (Latest Contact Info) Description 09/25/2025 1:00 PM EST [facility] [address] [place] [address] Jesse Moffett MD [address] [place] [address] Mixed conductive and sensorineural hearing [...] any time in the past 12 m [facility], were you homeless or living in a half-way (including now)? No 09/09/2025 [facility] Utilities Answer Date Recorded In the past [...] Sign Reading Time Taken Comments Blood Pressure 116/72 09/25/2025 12:56 PM EST Pulse 71 09/25/2025 12:56 PM EST Temperature - - Respiratory Rate - - Oxygen Saturation 97% 09/25/2025 12:56 PM EST Inhaled Oxygen Concentration - - Weight 100 kg (220 lb 7.4 oz) 09/25/2025 12:56 P M EST Height 147.3 cm (4' 10 ) 09/25/2025 12:56 PM EST Body Mass Index 46.08 09/25/2025 12:56 PM EST documented in this encounter Functional Status * BP Answer Date of Assessment Author 116/72 09/25/2025 12:56 PM EST Ganesh Robledo * Pulse Answer Date of Assessment Author 71 09/25/2025 12:56 PM EST Ganesh Robledo * SpO2 Answer Date of Assessment Author 97 09/25/2025 12:56 PM EST Ganesh Robledo * Height Answer Date of Assessment Author 58 09/25/2025 12:56 PM EST Ganesh Robledo * Weight Answer Date of Assessment Author 3527.36 09/25/2025 12:56 PM EST Ganesh Robledo * BMI (Calculated) Answer Date of Assessment Author 46.2 09/25/2025 12:56 PM EST Ganesh Robledo * Percent Excess Weight Loss Answer Date of Assessment Author 0 09/25/2025 12:56 PM EST Ganesh Robledo * Total Weight Change Percent Answer Date of Assessment Author 2222 09/25/2025 12:56 PM EST Ganesh Robledo * Weight Change Since Preop Answer Date of Assessment Author 99.98 09/25/2025 12:56 PM EST Ganesh Robledo * Initial Excess Weight Answer Date of Assessment Author -40.82 09/25/2025 12:56 PM EST Ganesh Robledo * IBW in lbs (Bariatric) Answer Date of Assessment Author 90 09/25/2025 12:56 PM EST Ganesh Robledo * Weight Change Since Last Visit Answer Date of Assessment Author 99.98 09/25/2025 12:56 PM EST Ganesh Robledo * IBW in kg (Bariatric) Answer Date of Assessment Author 40.82 09/25/2025 12:56 PM EST Brenelus , Kaymara * Percent of IBW Answer Date of Assessment Author 8,641.25 09/25/2025 12:56 PM EST Brenelus Kaymara * EBW (kg) Answer Date of Assessment Author 3,526.2 09/25/2025 12:56 PM EST Brenelus Kaymara * EBW (lbs) Answer Date of Assessment Author 3,521.74 09/25/2025 12:56 PM EST Brenelus Kaymara * Weight Change 24 hrs Answer Date of Assessment Author 1.116 09/25/2025 12:56 PM EST Brenelus , Kaymara * BSA (Calculated - sq m) Answer Date of Assessment Author 2.02 09/25/2025 12:56 PM EST Brenelus Kaymara * BMI (Calculated) Answer Date of Assessment Author 46.09 09/25/2025 12:56 PM EST Brenelus , Kaymara * IBW/kg (Calculated) Male Answer Date of Assessment Author 45.4 09/25/2025 12:56 PM EST Brenelus Kaymara * IBW/kg (Calculated) Female Answer Date of Assessment Author 40.9 09/25/2025 12:56 PM EST Brenelus Kaymara * IBW/kg (Calculated) Answer Date of Assessment Author 40.9 09/25/2025 12:56 PM EST Breannita Kaymara * Weight in (lb) to have BMI = 25 Answer Date of Assessment Author 119.4 09/25/2025 12:56 PM EST Brenelus Kaymara * BMI (Calculated) Answer Date of Assessment Author 46.2 09/25/2025 12:56 PM EST Brenelus , Kaymara * Percent Excess Weight Loss Answer Date of Assessment Author 0 09/25/2025 12:56 PM EST Brenelus Kaymara * Weight Change Since Preop Answer Date of Assessment Author 100 09/25/2025 12:56 PM EST Breannita Kaymara * Initial Excess Weight Answer Date of Assessment Author -40.82 09/25/2025 12:56 PM EST Brenelus Kaymara * IBW in kg (Bariatric) Answer Date of Assessment Author 40.82 09/25/2025 12:56 PM EST Brenelus , Kaymara * IBW in lb (Bariatric) Answer Date of Assessment Author 90 09/25/2025 12:56 PM EST Ganesh Robledo * Weight Change Since Last Visit Answer Date of Assessment Author 100 09/25/2025 12:56 PM EST Ganesh Robledo * Percent of IBW Answer Date of Assessment Author 244.96 09/25/2025 12:56 PM EST Ganesh Robledo * EBW (kg) Answer Date of Assessment Author 59.16 09/25/2025 12:56 PM EST Ganesh Robledo * EBW (lb) Answer Date of Assessment Author 130.46 09/25/2025 12:56 PM EST Ganesh Robledo * Difference in Weight Since Last Visit Answer Date of Assessment Author 1.12 09/25/2025 12:56 PM Ganesh Virgen * IBW/kg (Calculated) Answer Date of Assessment Author 40.9 09/25/2025 12:56 PM Ganesh Virgen * Adult Low Range Vt 6mL/kg Answer Date of Assessment Author 245.4 09/25/2025 12:56 PM EST Ganesh Robledo * Adult Moderate Range Vt 8mL/kg Answer Date of Assessment Author 327.2 09/25/2025 12:56 PM EST Ganesh Robledo * Adult High Range Vt 10mL/kg Answer Date of Assessment Author 409 09/25/2025 12:56 PM EST Ganesh Robledo * BP Answer Date of Assessment Author 116/72 09/25/2025 12:56 PM Ganesh Virgen * Pulse Answer Date of Assessment Author 71 09/25/2025 12:56 PM EST Ganesh Robledo * SpO2 Answer Date of Assessment Author 97 09/25/2025 12:56 PM EST Ganesh Robledo * Height Answer Date of Assessment Author 58 09/25/2025 12:56 PM EST Ganesh Robledo * Weight Answer Date of Assessment Author 3527.36 09/25/2025 12:56 PM Ganesh Virgen * BSA (Calculated - sq m) Answer Date of Assessment Author 2.02 09/25/2025 12:56 PM Ganesh Virgen * BMI (Calculated) Answer Date of Assessment Author 46.09 09/25/2025 12:56 PM EST Angelina Robldeoymara * Weight in (lb) to have BMI = 25 Answer Date of Assessment Author 119.4 09/25/2025 12:56 PM EST Angelina Robledoymcaryn documented as of this encounter Mental Status * BP Answer Entry Date Author 116/72 09/25/2025 12:56 PM EST Angelina Robledoymara * Pulse Answer Entry Date Author 71 09/25/2025 12:56 PM EST Angelina Robledoymara * SpO2 Answer Entry Date Author 97 09/25/2025 12:56 PM EST Angelina Robledoymara * Height Answer Entry Date Author 58 09/25/2025 12:56 PM EST Angelnia Robledoymcaryn * Weight Answer Entry Date Author 3527.36 09/25/2025 12:56 PM EST Angelina Robledoymcaryn * BMI (Calculated) Answer Entry Date Author 46.2 09/25/2025 12:56 PM EST Angelina Robledoymcaryn * Percent Excess Weight Loss Answer Entry Date Author 0 09/25/2025 12:56 PM EST Angelina Robledoymara * Total Weight Change Percent Answer Entry Date Author 2222 09/25/2025 12:56 PM EST Angelina Robledoymara * Weight Change Since Preop Answer Entry Date Author 99.98 09/25/2025 12:56 PM EST Angelina Robledoymara * Initial Excess Weight Answer Entry Date Author -40.82 09/25/2025 12:56 PM EST Angelina Robledoymara * IBW in lbs (Bariatric) Answer Entry Date Author 90 09/25/2025 12:56 PM EST Meena Kaymara * Weight Change Since Last Visit Answer Entry Date Author 99.98 09/25/2025 12:56 PM EST Angelina Robledoymara * IBW in kg (Bariatric) Answer Entry Date Author 40.82 09/25/2025 12:56 PM EST Angelina Robledoymara * Percent of IBW Answer Entry Date Author 8,641.25 09/25/2025 12:56 PM EST Angelina Robledoymara * EBW (kg) Answer Entry Date Author 3,526.2 09/25/2025 12:56 PM EST Brenelus , Kaymara * EBW (lbs) Answer Entry Date Author 3,521.74 09/25/2025 12:56 PM EST Brenelus , Kaymara * Weight Change 24 hrs Answer Entry Date Author 1.116 09/25/2025 12:56 PM EST Brenelus , Kaymara * BSA (Calculated - sq m) Answer Entry Date Author 2.02 09/25/2025 12:56 PM EST Brenelus , Kaymara * BMI (Calculated) Answer Entry Date Author 46.09 09/25/2025 12:56 PM EST Brenelus , Kaymara * IBW/kg (Calculated) Male Answer Entry Date Author 45.4 09/25/2025 12:56 PM EST Brenelus , Kaymara * IBW/kg (Calculated) Female Answer Entry Date Author 40.9 09/25/2025 12:56 PM EST Brenelus , Kaymara * IBW/kg (Calculated) Answer Entry Date Author 40.9 09/25/2025 12:56 PM EST Brenelus , Kaymara * Weight in (lb) to have BMI = 25 Answer Entry Date Author 119.4 09/25/2025 12:56 PM EST Brenelus , Kaymara * BMI (Calculated) Answer Entry Date Author 46.2 09/25/2025 12:56 PM EST Brenelus , Kaymara * Percent Excess Weight Loss Answer Entry Date Author 0 09/25/2025 12:56 PM EST Brenelus , Kaymara * Weight Change Since Preop Answer Entry Date Author 100 09/25/2025 12:56 PM EST Brenelus , Kaymara * Initial Excess Weight Answer Entry Date Author -40.82 09/25/2025 12:56 PM EST Brenelus , Kaymara * IBW in kg (Bariatric) Answer Entry Date Author 40.82 09/25/2025 12:56 PM EST Brenelus , Kaymara * IBW in lb (Bariatric) Answer Entry Date Author 90 09/25/2025 12:56 PM EST Brenelus , Kaymara * Weight Change Since Last Visit Answer Entry Date Author 100 09/25/2025 12:56 PM EST Brenelus , Kaymara * Percent of IBW Answer Entry Date Author 244.96 09/25/2025 12:56 PM EST Brenelus , Kaymara * EBW (kg) Answer Entry Date Author 59.16 09/25/2025 12:56 PM EST Brenelus , Kaymara * EBW (lb) Answer Entry Date Author 130.46 09/25/2025 12:56 PM EST Brenelus , Kaymara * Difference in Weight Since Last Visit Answer Entry Date Author 1.12 09/25/2025 12:56 PM EST Brenelus , Kaymara * IBW/kg (Calculated) Answer Entry Date Author 40.9 09/25/2025 12:56 PM EST Brenelus , Kaymara * Adult Low Range Vt 6mL/kg Answer Entry Date Author 245.4 09/25/2025 12:56 PM EST Brenelus , Kaymara * Adult Moderate Range Vt 8mL/kg Answer Entry Date Author 327.2 09/25/2025 12:56 PM EST Brenelus , Kaymara * Adult High Range Vt 10mL/kg Answer Entry Date Author 409 09/25/2025 12:56 PM EST Brenelus , Kaymara documented in this encounter Miscellaneous Notes * Progress Notes - Jesse Moffett MD - 09/25/2025 1:00 PM EST Images from the original note were not included. [facility] -- [place] [id number] Return Patient Visit HPI: Sharona Sanchez is a 40 y.o. female seen in follow up regarding hearing loss. Interval otologic history since last clinic visit: No change in symptoms. Still some muffled hearing. Is using mineral oil. 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 Down syndrome 3. Bilateral impacted cerumen Sharona Sanchez is a 40 y.o. female with Down syndrome, bilateral mild mixed hearing loss and reduced tympanometry, with bilateral cerumen impaction. Cerumenectomy performed bilaterally. I will plan to see her in 3-6 months. I want her to continue to use mineral oil. Jesse Moffett MD documented in this encounter Plan of Treatment Upcoming Encounters Date Type Department Care Team (Late st Contact Info) Description 10/22/2025 1:40 PM EST Office Visit [facility] Sleep Disorder Center [address] [place] [address] Lavern Galdamez APRN [address] [place] [address] 02/08/2026 12:30 PM EDT Office Visit [facility] [address] [place] [address] Emi Orozco PA [address] [place] [address] 02/10/2026 12:20 PM EDT Office Visit [facility] [address] [place] [address] Hannah Tang MD [address] [place] [address] 03/11/2026 2:40 PM EDT Office Visit [facility] [address] [place] [phone] Tanja Parsons MD [address] [place] [address] 2026 1:00 PM EDT Appointment Cardiac Imaging [address] [place] [phone] 2026 2:40 PM EDT Office Visit [facility] [address] [place] [phone] Jordon Tidwell MD [address] [place] [phone] documented as of this encounter Visit Diagnoses [...] plan has been documented for the patient 09/25/2025 1:19 PM EST documented as of this encounter Care Teams Invasive Cardiologist Relationship Specialty Start Date End Date Espinoza Thakur MD [address] [place] [address] [address] [place] [address] PCP - General 02/11/21 Vanda Greenberg LPN None None TCM Nurse 09/09/25 documented as of this encounter
--- OUTSIDE RECORDS SUMMARY | 2025-09-28 11:09 | XMS_ITS | Encounter Summary ---
Author Organization Healthcare Address [address] [id number] Care Team Providers Care Cd Technician Name Role Phone Espinoza Thakur MD Primary Care Provider [phone] Vanda Greenberg LPN Unavailable Unavailable Encounter Details Date Type Department Care Team (Latest Contact Info) Description 09/28/2025 11:09 AM [facility] Hospital Encounter [facility] Breast Care Center [facility] [address] [address] Encounter for screening mammogram for malignant neoplasm of breast Social History Tobacco Use Types Packs/Day Years [...] any time in the past 12 m [facility], were you homeless or living in a senior care (including now)? No 09/09/2025 [facility] Utilities Answer Date Recorded In the past [...] - Inhaled Oxygen Concentration - - Weight 99.8 kg (220 lb) 09/28/2025 11:28 AM EST Height 147.3 cm (4' 10 ) 09/28/2025 11:28 AM EST Body Mass Index 45.98 09/28/2025 11:28 AM EST documented in this encounter Functional Status * BMI (Calculated) Answer Date of Assessment Author 46.1 09/28/2025 11:28 AM EST [place] * Percent Excess Weight Loss Answer Date of Assessment Author 0 09/28/2025 11:28 AM EST [place] * Total Weight Change Percent Answer Date of Assessment Author 2222 09/28/2025 11:28 AM EST [place] * Weight Change Since Preop Answer Date of Assessment Author 99.77 09/28/2025 11:28 AM EST [place] * Initial Excess Weight Answer Date of Assessment Author -40.82 09/28/2025 11:28 AM EST [place] * IBW in lbs (Bariatric) Answer Date of Assessment Author 90 09/28/2025 11:28 AM EST [place] * Weight Change Since Last Visit Answer Date of Assessment Author 99.77 09/28/2025 11:28 AM EST [place] * IBW in kg (Bariatric) Answer Date of Assessment Author 40.82 09/28/2025 11:28 AM EST [place] * Percent of IBW Answer Date of Assessment Author 8,623.22 09/28/2025 11:28 AM EST [place] * EBW (kg) Answer Date of Assessment Author 3,518.84 09/28/2025 11:28 AM EST [place] * EBW (lbs) Answer Date of Assessment Author 3,514.38 09/28/2025 11:28 AM EST [place] * Weight Change 24 hrs Answer Date of Assessment Author -.209 09/28/2025 11:28 AM EST [place] * BSA (Calculated - sq m) Answer Date of Assessment Author 2.02 09/28/2025 11:28 AM EST [place] * BMI (Calculated) Answer Date of Assessment Author 45.99 09/28/2025 11:28 AM EST [place] * IBW/kg (Calculated) Male Answer Date of Assessment Author 45.4 09/28/2025 11:28 AM EST [place] * IBW/kg (Calculated) Female Answer Date of Assessment Author 40.9 09/28/2025 11:28 AM EST [place] * IBW/kg (Calculated) Answer Date of Assessment Author 40.9 09/28/2025 11:28 AM EST [place] * Weight in (lb) to have BMI = 25 Answer Date of Assessment Author 119.4 09/28/2025 11:28 AM EST [place] * BMI (Calculated) Answer Date of Assessment Author 46.1 09/28/2025 11:28 AM EST [place] * Percent Excess Weight Loss Answer Date of Assessment Author 0 09/28/2025 11:28 AM EST [place] * Weight Change Since Preop Answer Date of Assessment Author 99.79 09/28/2025 11:28 AM EST [place] * Initial Excess Weight Answer Date of Assessment Author -40.82 09/28/2025 11:28 AM EST [place] * IBW in kg (Bariatric) Answer Date of Assessment Author 40.82 09/28/2025 11:28 AM EST [place] * IBW in lb (Bariatric) Answer Date of Assessment Author 90 09/28/2025 11:28 AM EST [place] * Weight Change Since Last Visit Answer Date of Assessment Author 99.79 09/28/2025 11:28 AM EST [place] * Percent of IBW Answer Date of Assessment Author 244.44 09/28/2025 11:28 AM EST [place] * EBW (kg) Answer Date of Assessment Author 58.95 09/28/2025 11:28 AM EST [place] * EBW (lb) Answer Date of Assessment Author 130 09/28/2025 11:28 AM EST [place] * Difference in Weight Since Last Visit Answer Date of Assessment Author -0.21 09/28/2025 11:28 AM EST [place] * IBW/kg (Calculated) Answer Date of Assessment Author 40.9 09/28/2025 11:28 AM EST [place] * Adult Low Range Vt 6mL/kg Answer Date of Assessment Author 245.4 09/28/2025 11:28 AM EST [place] * Adult Moderate Range Vt 8mL/kg Answer Date of Assessment Author 327.2 09/28/2025 11:28 AM Sarah Castro * Adult High Range Vt 10mL/kg Answer Date of Assessment Author 409 09/28/2025 11:28 AM Sarah Castro * Enter Height and Weight Question Answer Date of Assessment Author Height 58 09/28/2025 11:28 AM MARGIE Suellen Mcgraw Weight 3520 09/28/2025 11:28 AM MARGIE burgerSuellen * BSA (Calculated - sq m) Answer Date of Assessment Author 2.02 09/28/2025 11:28 AM Sarah Castro * BMI (Calculated) Answer Date of Assessment Author 45.99 09/28/2025 11:28 AM Sarah Castro * Weight in (lb) to have BMI = 25 Answer Date of Assessment Author 119.4 09/28/2025 11:28 AM Sarah Castro * Enter Height and Weight Question Answer Date of Assessment Author Height 58 09/28/2025 11:28 AM MARGIE burgerSuellen Weight 3520 09/28/2025 11:28 AM MARGIE burger Suellen documented as of this encounter Mental Status * BMI (Calculated) Answer Entry Date Author 46.1 09/28/2025 11:28 AM Sarah Castro * Percent Excess Weight Loss Answer Entry Date Author 0 09/28/2025 11:28 AM Sarah Castro * Total Weight Change Percent Answer Entry Date Author 2222 09/28/2025 11:28 AM Sarah Castroy * Weight Change Since Preop Answer Entry Date Author 99.77 09/28/2025 11:28 AM Sarah Castroy * Initial Excess Weight Answer Entry Date Author -40.82 09/28/2025 11:28 AM Sarah Castroy * IBW in lbs (Bariatric) Answer Entry Date Author 90 09/28/2025 11:28 AM Sarah Castro * Weight Change Since Last Visit Answer Entry Date Author 99.77 09/28/2025 11:28 AM Sarah Castroy * IBW in kg (Bariatric) Answer Entry Date Author 40.82 09/28/2025 11:28 AM Sarah Castro * Percent of IBW Answer Entry Date Author 8,623.22 09/28/2025 11:28 AM EST [place] * EBW (kg) Answer Entry Date Author 3,518.84 09/28/2025 11:28 AM EST [place] * EBW (lbs) Answer Entry Date Author 3,514.38 09/28/2025 11:28 AM EST [place], [place] * Weight Change 24 hrs Answer Entry Date Author -.209 09/28/2025 11:28 AM EST [place] * BSA (Calculated - sq m) Answer Entry Date Author 2.02 09/28/2025 11:28 AM EST [place] * BMI (Calculated) Answer Entry Date Author 45.99 09/28/2025 11:28 AM EST [place] * IBW/kg (Calculated) Male Answer Entry Date Author 45.4 09/28/2025 11:28 AM EST [place] * IBW/kg (Calculated) Female Answer Entry Date Author 40.9 09/28/2025 11:28 AM EST [place] * IBW/kg (Calculated) Answer Entry Date Author 40.9 09/28/2025 11:28 AM EST [place] * Weight in (lb) to have BMI = 25 Answer Entry Date Author 119.4 09/28/2025 11:28 AM EST [place] * BMI (Calculated) Answer Entry Date Author 46.1 09/28/2025 11:28 AM EST [place] * Percent Excess Weight Loss Answer Entry Date Author 0 09/28/2025 11:28 AM EST [place] * Weight Change Since Preop Answer Entry Date Author 99.79 09/28/2025 11:28 AM EST [place] * Initial Excess Weight Answer Entry Date Author -40.82 09/28/2025 11:28 AM EST [place] * IBW in kg (Bariatric) Answer Entry Date Author 40.82 09/28/2025 11:28 AM EST [place] * IBW in lb (Bariatric) Answer Entry Date Author 90 09/28/2025 11:28 AM EST [place] * Weight Change Since Last Visit Answer Entry Date Author 99.79 09/28/2025 11:28 AM EST [place] h[place] * Percent of IBW Answer Entry Date Author 244.44 09/28/2025 11:28 AM EST [place] * EBW (kg) Answer Entry Date Author 58.95 09/28/2025 11:28 AM EST [place], Sarah hank * EBW (lb) Answer Entry Date Author 130 09/28/2025 11:28 AM EST [place] * Difference in Weight Since Last Visit Answer Entry Date Author -0.21 09/28/2025 11:28 AM EST [place] * IBW/kg (Calculated) Answer Entry Date Author 40.9 09/28/2025 11:28 AM EST [place], Sarah hank * Adult Low Range Vt 6mL/kg Answer Entry Date Author 245.4 09/28/2025 11:28 AM EST [place] * Adult Moderate Range Vt 8mL/kg Answer Entry Date Author 327.2 09/28/2025 11:28 AM EST [place] * Adult High Range Vt 10mL/kg Answer Entry Date Author 409 09/28/2025 11:28 AM EST [place] * Enter Height and Weight Question Answer Entry Date Author Height 58 09/28/2025 11:28 AM Suellen Guillaume Weight 3520 09/28/2025 11:28 AM Suellen Guillaume documented in this encounter Plan of Treatment Upcoming Encounters Date Type Department Care Team (Late st Contact Info) Description 10/22/2025 1:40 PM EST Office Visit [facility] Sleep Disorder Center [address], [address]th [place] [address] Lavern Galdamez, GREEN BUILDING ARCHITECT [address] [place] [address] 02/08/2026 12:30 PM EDT Office Visit [facility] [address], [address] [place] [address] Emi Orozco, PA [address] [place] [address] 02/10/2026 12:20 PM EDT [facility] [address], [address] [place] [address] Hannah Tang MD [address] [place] [address] 03/11/2026 2:40 PM EDT Office Visit [facility] [place] [address] [place] [address] Tanja Parsons MD [address] [place] [address] 2026 1:00 PM EDT Appointment Cardiac Imaging [address] [place] [address] 2026 2:40 PM EDT Office Visit [facility] [place] [address] [place] [address] Jordon Tidwell MD [address] [place] [address] Pending Results Name Type Priority Associated Diagnoses Date /Time Mammography Breast Screening Tomosynthesis Bilateral Imaging Routine Encounter for screening mammogram for malignant neoplasm of breast 09/28/2025 11:38 AM EST Scheduled Orders Name Type Priority Associated Diagnoses Orde r Schedule Mammography Breast Screening Tomosynthesis Bilateral Imaging Routine Encounter for screening mammogram for malignant neoplasm of breast Once for 1 Occurrences starting 09/28/2025 until 09/28/2025 documented as of this encounter Visit Diagnoses Diagnosis Encounter for screening mammogram for malignant neoplasm of breast documented in this encounter Additional Health Concerns Assessment Noted Time PHQ-9 Depression Total Score: 0 09/10/20 1:43 PM EST A fall risk assessment has been complete d for the patient 09/19/2025 7:31 PM EST A Body Mass Index follow-up plan has been documented for the patient 09/25/2025 1:19 PM EST documented as of this encounter Care Teams Cd Technician Relationship Specialty Start Date End Date Espinoza Thakur MD [address] [place] [address] [address]1 [address] [place] [address] PCP - General 02/11/21 Vanda Greenberg LPN None None TCM Nurse 09/09/25 documented as of this encounter
--- OUTSIDE RECORDS SUMMARY | 2025-09-28 14:30 | XMS_ITS | Encounter Summary ---
Author Organization Healthcare Address [address] [place] [address] Care Team Providers Care Inspector Conveyor Line Name Role Phone Espinoza Thakur MD Primary Care Provider [phone] Encounter Details Date Type Department Care Team [...] Description 10/22/2025 1:40 PM EST Office Visit [facility] Sleep Disorder Center [address] [place] [address] Lavern Galdamez, CONE SEWER [address] [place] [address] 02/08/2026 12:30 PM EDT Office Visit [facility] [address] [place] [address] Emi Orozco PA [address] [place] [address] 02/10/2026 12:20 PM EDT Office Visit [facility] Women's Health [address] [place] [address] Hannah Tang MD [address] [place] [address] 03/11/2026 2:40 PM EDT Office Visit [facility] [address] [place] [address] Tanja Parsons MD [address] [place] [address] 2026 1:00 PM EDT Appointment Cardiac Imaging [address] [place] [address] 2026 2:40 PM EDT Office Visit [facility] [address] [place] [address] Jordon Tidwell MD [address] [place] [address] documented as of this encounter [...] as of this encounter Care Teams Inspector Conveyor Line Relationship Specialty Start Date End Date Espinoza Thakur MD [address] [place] [address] #1 [address]1 [place] Smith [address] PCP - General 02/11/21 documented as of this encounter
--- OUTSIDE RECORDS SUMMARY | 2025-09-28 14:30 | XMS_ITS | Encounter Summary ---
Author Organization Healthcare Address [address] [place] [address] Care Team Providers Care Careers Adviser Name Role Phone Espinoza Thakur MD Primary Care Provider [phone] Reason for Visit * Reason Comments Med Refill Encounter Details Date Type Department Care Team (Late st Contact Info) Description 08/01/2025 Refill [facility] [place] [address] [place] [address] Sara Webster PA [address] [place] [address] NSVT (nonsustained ventricular tachycardia) ([facility]) Social History Tobacco Use Types Packs/Day Years [...] Description 10/22/2025 1:40 PM EST Office Visit [facility] Sleep Disorder Center [address] [place] [address] Rudolph Lavern Mcdaniel, CLIENT SUCCESS MANAGER [address] [place] [address] 02/08/2026 12:30 PM EDT Office Visit [facility] Medicine Specialties [address] [place] [address] Emi Orozco PA [address] [place] [address] 02/10/2026 12:20 PM EDT Office Visit [facility] Women's Health [address], [address] [place] [address] Hannah Tang MD [address] [place] [address] 03/11/2026 2:40 PM EDT Office Visit [facility] [place] [address] [facility] [place] [address] Tanja Parsons MD [address] [place] [address] 2026 1:00 PM EDT Appointment Cardiac Imaging [address] [place] [address] 2026 2:40 PM EDT Office Visit [facility] [address] [place] [address] Jordon Tidwell MD [address] [place] [address] documented as of this encounter Visit Diagnoses Diagnosis NSVT (nonsustained ventricular tachycardia) ([facility]) documented in this encounter Additional Health Concerns Assessment Noted Time PHQ-9 Depression Total Score: 0 06/19/20 25 9:52 AM EDT A fall risk assessment has been complete d for the patient 06/19/2025 9:52 AM EDT A Body Mass Index follow-up plan has been documented for the patient 06/29/2025 4:50 PM EDT documented as of this encounter Care Teams Careers Adviser Relationship Specialty Start Date End Date Espinoza Thakur MD [address] [place] [address] [address]1 [address]1 [place] Smith [address] PCP - General 02/11/21 documented as of this encounter
--- OUTSIDE RECORDS SUMMARY | 2025-09-28 14:30 | XMS_ITS | Clinical Summary ---
Author Organization [facility] Address [address] [place] [address] Care Team Providers Care Bridal Stylist Sales Consultant Name Role Phone Unavailable Primary Care Provider [...]
--- OUTSIDE RECORDS SUMMARY | 2025-09-28 14:30 | XMS_ITS | Encounter Summary ---
Author Organization Healthcare Address [address] [place] [address] Care Team Providers Care Photo Retoucher Name Role Phone Espinoza Thakur MD Primary Care Provider [phone] Encounter Details Date Type Department Care Team [...] as of this encounter Functional Status * Communicable Disease Screening Question Answer Date of Assessment Author Have you been in contact with someone who was sick? No / Unsure 09/05/2025 9:57 PM Kristi James RN Do you have any of the following new or worsening symptoms? Shortness of breath 09/05/2025 9:57 PM Kristi James RN * Travel Screening Question Answer Date of Assessment Author Have you traveled internationally or domestically in the last month? No 09/05/2025 9:57 PM Kristi James RN documented as of this encounter Mental Status * Communicable Disease Screening Question Answer Entry Date Author Have you been in contact with someone who was sick? No / Unsure 09/05/2025 9:57 PM EST Javalera, Kristi M, RN Do you have any of the following new or worsening symptoms? Shortness of breath 09/05/2025 9:57 PM Kristi James RN * Travel Screening Question Answer Entry Date Author Have you traveled internationally or domestically in the last month? No 09/05/2025 9:57 PM Kristi James RN documented in this encounter Plan of Treatment Upcoming Encounters Date Type Department Care Team (Late st Contact Info) Description 10/22/2025 1:40 PM EST Office Visit [facility] Sleep Disorder Center [address] [place] [address] Lavern Galdamez, MILLER HELPER [address] [place] [address] 02/08/2026 12:30 PM EDT Office Visit [facility] Medicine [facility] [address] [place] [address] Emi Orozco PA [address] [place] [address] 02/10/2026 12:20 PM EDT Office Visit [facility] [address] [place] [address] Hannah Tang MD [address] [place] [address] 03/11/2026 2:40 PM EDT Office Visit [facility] [place] [address] [place] [address] Tanja Parsons MD [address] [place] [address] 2026 1:00 PM EDT Appointment Cardiac Imaging [address] [place] [address] 2026 2:40 PM EDT Office Visit [facility] [place] [address] [place] [address] Jordon Tidwell MD [address] [place] [address] documented as of this encounter Visit Diagnoses [...] documented as of this encounter Care Teams Photo Retoucher Relationship Specialty Start Date End Date Espinoza Thakur MD [address] [place] [address] [address]1 [address]1 [place] [address] PCP - General 02/11/21 documented as of this encounter
--- OUTSIDE RECORDS SUMMARY | 2025-09-28 14:30 | XMS_ITS | Encounter Summary ---
Author Organization Healthcare Address [address] [place] [address] Care Team Providers Care Filter Assembler Name Role Phone Espinoza Thakur MD Primary Care Provider [phone] Vanda Greenberg LPN Unavailable Unavailable Reason for Visit * Reason Comments TCM Encounter Details Date Type Department Care Team (Late st Contact Info) Description 09/09/2025 Patient Outreach [facility] [address] [facility] [address] [place] [address] Vanda Greenberg LPN None None [...] time in the past 12 m [facility], were you homeless or living in a detention (including now)? No 09/09/[address] [facility] Utilities Answer Date Recorded In the [...] as of this encounter Functional Status * Engagement Question Answer Date of Assessment Author Is the patient eligible? Yes 09/09/2025 10:24 AM Vanda Donnelly LPN * Medications Question Answer Date of Assessment Author Medications reviewed with patient/caregiver? Yes 09/09/2025 10:24 AM Vanda Donnelly LPN Is the patient having any si de effects they believe may be caused by any medication additions or changes? No 09/09/2025 10:24 AM Vanda Donnelly LPN Does the patient have all medications ordered at discharge? Yes 09/09/2025 10:24 AM Vanda Gray LPN Is the patient taking all medications as directed (includes completed medication regime)? Yes 09/09/2025 10:24 AM Vanda Donnelly LPN * Appointments Question Answer Date of Assessment Author Does the patient have a primary care provider? Yes 09/09/2025 10:24 AM Vanda Donnelly LPN Does the patient have an appointment with their PCP within 7 days of discharge? Yes 09/09/2025 10:24 AM Vanda Donnelly LPN Nursing Interventions Verified appointme nt date/time/provider 09/09/2025 10:24 AM Vanda Donnelly LPN Nursing Interventions Educated on import ance of keeping appointment 09/09/2025 10:24 AM Vanda Donnelly LPN * Patient Teaching Question Answer Date of Assessment Author Did the patient receive a co py of their discharge instructions? Yes 09/09/2025 10:24 AM Vanda Donnelly LPN What is the patient's perception of their health status since discharge? Improving 09/09/2025 10:24 AM Rod Donnelly LPN Is the patient/caregiver abl e to teach back signs and symptoms related to disease process for when to call PCP? Yes 09/09/2025 10:24 AM Vanda Donnelly LPN Is the patient/caregiver abl e to teach back signs and symptoms related to disease process for when to call 911? Yes 09/09/2025 10:24 AM Vanda Donnelly LPN Is the patient/caregiver abl e to teach back the hierarchy of who to call/visit for symptoms/problems? PCP, Specialist, Home Health nurse, Urgent Care, ED, 911 Yes 09/09/2025 10:24 AM Vanda Donnelly LPN * Wrap Up Question Answer Date of Assessment Author Call completed? Yes 09/09/2025 10:24 AM Vanda Chanel LPN documented as of this encounter Mental Status * Food Insecurity Concern Calculation Answer Entry Date Author 1 09/09/2025 10:27 AM EST Marc Greenberg LPN * Transportation Needs Concern Calculation Answer Entry Date Author 1 09/09/2025 10:27 AM EST Marc Greenberg LPN * Housing Stability Concern Calculation Answer Entry Date Author 1 09/09/2025 10:27 AM EST Marc Greenberg LPN * Utilities Concern Calculation Answer Entry Date Author 1 09/09/2025 10:27 AM EST Marc Greenberg LPN documented in this encounter Miscellaneous Notes * Progress Notes - Vanda Greenberg LPN - 09/09/2025 9:51 AM EST Admit Date: 09/05/2025 Discharge Date: 09/08/2025 Hospital Service: [facility] Discharge Diagnosis: Shortness of breath 09/09/2025 TCM [...] Description 10/22/2025 1:40 PM EST Office Visit [facility] Sleep Disorder Center [facility] [address] [place] [address] Lavern Galdamez Violeta, [employer] [address] [place] [address] 02/08/2026 12:30 PM EDT Office Visit [facility] Medicine Specialties [address] [place] [address] Emi Orozco PA [address] [place] [address] 02/10/2026 12:20 PM EDT Office Visit [facility] [address], [address] [place] [address] Hannah Tang MD [address] [place] [address] 03/11/2026 2:40 PM EDT Office Visit [facility] [place] [address] [place] [address] Tanja Parsons MD [address] [place] [address] 2026 1:00 PM EDT Appointment Cardiac Imaging [address] [place] [address] 2026 2:40 PM EDT Office Visit [facility] [address] [place] [address] Jordon Tidwell MD [address] [place] [address] documented as of this encounter [...] documented as of this encounter Care Teams Filter Assembler Relationship Specialty Start Date End Date Espinoza Thakur MD [address] [place] [address] #1 #1 [place] Smith [address] PCP - General 02/11/21 Vanda Greenberg LPN None None TCM Nurse 09/09/25 documented as of this encounter
--- OUTSIDE RECORDS SUMMARY | 2025-09-28 14:30 | XMS_ITS | Clinical Summary ---
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) 12/09/2020 05/03/2021 Transfusion history 02/27/2019 05/03/20 21 Abnormal CXR 12/17/2018 05/03/2021 Hypoxemia 02/18/2013 05/03/2021 Encounters Date Type Department Care Team Description 09/28/2025 11:09 AM EST Hospital Encounter [facility] [address] [phone] Encounter for screening mammogram for malignant neoplasm of breast 09/28/2025 Travel 09/25/2025 1:00 PM EST [facility] [address], [address]rd [place] [address] Jesse Moffett MD Mixed conductive and sensorineural hearing loss of both ears (Primary Dx); Down syndrome; Bilateral impacted cerumen 09/25/2025 Travel 09/19/2025 8:00 PM EST Clinical Support [facility] Sleep Disorder Center [address] [facility], [address] [place] [phone] Xiao Lopes KALEIGH (obstructive sleep apnea); Nocturnal hypoxemia 09/19/2025 Travel 09/18/2025 1:00 PM EST Office Visit [facility] [address] [facility] [address] [phone] Jordon Tidwell MD AV canal (Primary Dx) 09/18/2025 Telephone [facility] [address] [facility] [address] [phone] Jordon Tidwell MD 09/18/2025 Travel 09/15/2025 Telephone [facility] Sleep Disorder Center [address] [place] [address], [address] [place] [phone] RudolphLavern, SSIS ETL DEVELOPER 09/10/2025 1:00 PM EST Office Visit [facility] [address] [facility] [address] [phone] Tanja Parsons MD Atrial fibrillation, unspecified type (CMS/HCC) (Primary Dx) 09/10/2025 Travel 09/09/2025 Patient Outreach [facility] [address] [facility], [address] [place] [phone] Vanda Greenberg, ONLINE PRODUCER [facility] 09/07/2025 Telephone [facility] [address] [facility] [address] [phone] Jordon Tidwell MD 09/06/2025 Travel 09/05/2025 10:09 PM EST - 09/08/2025 1:46 PM EST Hospital Encounter [facility] H Inpatient [address] [place] [phone] Vitor Hankins MD Arora, Ankit, MD Andika, Reynold MD Ramay, Tehreem K, MD Shortness of breath (Primary Dx); Acute cough; Acute pulmonary edema (CMS/HCC); Acute respiratory failure with hypoxia; Complete heart block, post-surgical; Acute diastolic heart failure secondary to hypertrophic obstructive cardiomyopathy Discharge Disposition: Home or Self Care 09/05/2025 Travel 08/21/2025 11:40 AM EST Office Visit [facility] Sleep Disorder Center [address] [facility] [place] [phone] Lavern Galdamez APRN KALEIGH (obstructive sleep apnea) (Primary Dx) 08/21/2025 Travel 08/17/2025 1:42 PM EST - 08/17/2025 11:59 PM EST Hospital Encounter Cardiac Imaging [address] [place] [phone] Pacemaker Discharge Disposition: Home or Self Care 08/17/2025 Travel 08/01/2025 [facility] [place] [address] [place] [phone] Sara Webster PA NSVT (nonsustained ventricular tachycardia) (CMS/HCC) 06/29/2025 1:45 PM EDT Consult [facility] [address] [phone] Jesse Moffett MD Mixed conductive and sensorineural hearing loss of both ears (Primary Dx); Down syndrome; Bilateral impacted cerumen 06/29/2025 1:00 PM EDT Office Visit [facility] Audiology [address] [address] Arlene Love AuD Mixed conductive and sensorineural hearing loss of both ears (Primary Dx) 06/29/2025 Orders Only [facility] [address] [phone] Emi Orozco PA 06/29/2025 Travel from Last 3 Months Immunizations Immunization Administration Dates Next Due Hep A, Adult 09/11/2018 Influenza, Recombinant, injectable, preservative free 06/23/2025 Influenza, seasonal, injectable, preservative fr ee 06/25/2024 [facility] COVID-19 Vaccine (Purple Cap) 12 + 11/25/2020,11/03/2020 [...] any time in the past 12 m [facility], were you homeless or living in a assisted (including now)? No 09/09/2025 [facility] Utilities Answer Date Recorded [...] Pulse 71 09/25/2025 12:56 PM EST Temperature 36.3 C (97.3 F) 09/08/2025 11:36 AM EST Respiratory Rate 16 09/08/2025 11:00 AM EST Oxygen Saturation 97% 09/25/2025 12:56 PM EST Inhaled Oxygen Concentration - - Weight 99.8 kg (220 lb) 09/28/2025 11:28 AM EST Height 147.3 cm (4' 10 ) 09/28/2025 11:28 AM EST Body Mass Index 45.98 09/28/2025 11:28 AM EST Plan of Treatment Upcoming Encounters Date Type Department Care Team (Late st Contact Info) Description 10/22/2025 1:40 PM EST Office Visit [facility] Sleep Disorder Center [address]th [place] [address] Rudolph Lavern Mcdaniel, SSIS ETL DEVELOPER [address] [place] [address] 02/08/2026 12:30 PM EDT Office Visit [facility] [address] [place] [address] Emi Orozco PA [address] [place] [address] 02/10/2026 12:20 PM EDT Office Visit [facility] [address] [place] [address] Hannah Tang MD [address] [place] [address] 03/11/2026 2:40 PM EDT Office Visit [facility] [place] [address] [facility] [place] [phone] Tanja Parsons MD [address] [place] [address] 2026 1:00 PM EDT Appointment Cardiac Imaging [address] [place] [phone] 2026 2:40 PM EDT Office Visit [facility] [place] [address] [place] [phone] Jordon Tidwell MD [address] [place] [address] Health Maintenance Due Date Last [...] 05/06/2025 05/06/2025 [facility]-Influenza Vaccine (#1) 2025 06/23/2025, [id number] Vaccine (6 - Pfizer risk 2024- season) [...] Screening Completed 09/05/2025 [facility]-Obesity Intervention Completed 025, 09/19/2025, 09/18/2025, Additional history exists HPV Vaccines (No Doses Required) Completed [facility]-HIB Vaccines Aged Out No longer e ligible based on patient's age to complete this topic [facility]-IPV Vaccines Aged Out No longer e ligible based on patient's age to complete this topic [facility]-Rotavirus Vaccines Aged Out No lo nger eligible based on patient's age to complete this topic Medical Devices Implanted Type Area Dust Collector Attendant Device Identifier Shelf Expiration Date Model / Serial / Lot [id number] Quickflex Xl [id number] Lead [id number] QUICKFLEX XL / [id number] / [id number] Tendril Sts [id number] Lead 2088TC TEND RIL STS / [id number] / [id number] Tendril Sts [id number] Lead 2088TC TEND RIL STS / [id number] / Pacemaker Allure Bi Vent - [id number] Implanted:Qty: 1 on 05/03/2021 by Tanja Parsons MD at [facility] [id number] 05/31/2021 [id number] / [id number] / [id number] Procedures Procedure Name Priority Date/Time Associated Diagnosis Comments ECG ADULT Routine 09/18/2025 12:59 PM EST AV canal PROTHROMBIN TIME(PT) / INR Routine 09/08/2025 5:06 [...] PACEMAKER Routine 08/17/2025 1:54 PM EST Pacemaker from Last 3 Months Results * ECG Adult (Now - Performed in your clinic) (09/18/2025 12:59 PM EST) Only the most recent of2 resultswithin the time period is included. EKG DIAGNOSIS CLASS Abnormal MUSE ECG Ventricular Rate 72 BPM MUSE ECG Atrial Rate 77 BPM MUSE ECG QRSD Interval 162 ms MUSE ECG QT Interval 454 ms MUSE ECG QTC Interval 497 ms MUSE ECG R [place] -66 degrees MUSE ECG T Wave [place] 82 degrees MUSE ECG Diagnosis Ventricular-pace d rhythm MUSE ECG Diagnosis Biventricular pacemaker detected MUSE ECG Diagnosis MUSE ECG Diagnosis MUSE ECG Diagnosis Confirmed by Phillip Sellers ([id number]) on 09/18/2025 3:38:34 PM MUSE ECG 09/18/2025 12:5 9 PM EST 09/18/2025 3:38 PM EST us Jordon Tidwell MD ECG ORDERABLES Final Resu lt MUSE ECG * (ABNORMAL) Prothrombin Time/INR (09/08/2025 5:06 AM EST) Only the most recent of4 resultswithin the time period is included. Prothrombin Time 26.0(H) 12.0 - 14.3 sec LAB COAGULATION METHOD 09/08/2025 5:43 AM EST [facility] INR 2.4(H) 0.9 - 1.1 LAB COAGULATION METHOD 09/08/2025 5:43 AM EST [facility] Blood Venous blood specimen / Unknown Venipuncture / Unknown 09/08/2025 5:06 AM EST 09/08/2025 5:13 AM EST Narrative [facility] - 09/08/2025 5:43 AM EST OPTIMAL INR RANGES FOR PATIENT ON ORAL ANTICOAGULANT THERAPY Prevention of venous thromboembolism INR 2.0 to 3.0 In patients with heart disease: Atrial fibrillation INR 2.0 to 3.0 Valvular heart disease INR 2.0 to 3.0 Tissue heart valves INR 2.0 to 3.0 Mechanical prosthetic valves INR 2.5 to 3.5 Prevention of recurrent DE INR 2.5 to 3.5 us Armando Dickinson MD LAB BLOOD ORDERABLES Final Res ult [facility] [address] [place] [address] * (ABNORMAL) CBC W/O Differential (09/07/2025 3:54 AM EST) Only the most recent of2 resultswithin the time period is included. WBC Count 9.73 3.70 - 10.30 10*3/uL LAB HEMATOLOGY METHOD 09/07/2025 4:01 AM EST [facility] RBC Count 4.42 3.90 - 5.20 10*6/uL LAB HEMATOLOGY METHOD 09/07/2025 4:01 AM EST [facility] HGB 14.6 11.2 - 15.7 g/dL LAB HEMATOLOGY METHOD 09/07/2025 4:01 AM EST [facility] HCT 43.4 34.0 - 45.0 % LAB HEMATOLOGY METHOD 09/07/2025 4:01 AM EST [facility] Platelet Count 178 155 - 369 10*3/uL LAB HEMATOLOGY METHOD 09/07/2025 4:01 AM EST [facility] MCV 98 79 - 98 fL LAB HEMATOLOGY METHOD 09/07/2025 4:01 AM EST [facility] MCH 33.0(H) 26.0 - 32.0 pg LAB HEMATOLOGY METHOD 09/07/2025 4:01 AM EST [facility] MCHC 33.6 30.7 - 35.5 g/dL LAB HEMATOLOGY METHOD 09/07/2025 4:01 AM EST [facility] RDW 15.5(H) 11.5 - 14.5 % LAB HEMATOLOGY METHOD 09/07/2025 4:01 AM EST [facility] MPV 9.2 8.8 - 12.5 fL LAB HEMATOLOGY METHOD 09/07/2025 4:01 AM EST [facility] nRBC 0.0 <=0.0 per 100 WBCs LAB HEMATOLOGY METHOD 09/07/2025 4:01 AM EST [facility] Blood Venous blood specimen / Unknown Venipuncture / Unknown 09/07/2025 3:54 AM EST 09/07/2025 3:58 AM EST us Armando Dickinson MD LAB BLOOD ORDERABLES Final Res ult [facility] [address] [place] [address] * (ABNORMAL) Basic metabolic panel (09/07/2025 3:54 AM EST) Glucose, Plasma 120(H) 74 - 99 mg/dL 09/07/2025 4:27 AM EST [facility] BUN, Plasma 19 7 - 21 mg/dL 09/07/2025 4:27 AM EST [facility] Creatinine, Plasma 0.68 0.60 - 1.10 mg/dL 09/07/2025 4:27 AM EST [facility] BUN/Creatinine Ratio 28 09/07/2025 4:27 AM EST [facility] Sodium, Plasma 139 136 - 145 mmol/L 09/07/2025 4:27 AM EST [facility] Potassium, Plasma 4.2 3.6 - 4.9 mmol/L 09/07/2025 4:27 AM EST [facility] Chloride, Plasma 102 97 - 107 mmol/L 09/07/2025 4:27 AM EST [facility] CO2, Plasma 28 22 - 29 mmol/L 09/07/2025 4:27 AM EST [facility] Anion Gap 9 6 - 16 mmol/L 09/07/2025 4:27 AM EST [facility] Total Calcium, Plasma 8.4(L) 8.9 - 10.2 mg/dL 09/07/2025 4:27 AM EST [facility] eGFRcr 111.7 mL/min/1.7 3m*2 09/07/2025 4:27 AM EST [facility] Comment:Reported eGFRcr in m L/min/1.73m2 is based the CKD-EPI 2020 equation that does not use a race coefficient. Blood Venous blood specimen / Unknown Venipuncture / Unknown 09/07/2025 3:54 AM EST 09/07/2025 3:58 AM EST us Armando Dickinson MD LAB BLOOD ORDERABLES Final Res ult [facility] [address] [place] [address] * (ABNORMAL) Blood gas panel, venous (09/06/2025 8:20 AM EST) Only the most recent of2 resultswithin the time period is included. pH, Venous 7.38 7.32 - 7.43 LAB HEMATOLOGY METHOD 09/06/2025 8:26 AM EST [facility] pCO2, Venous 55(H) 37 - 52 mmHg LAB HEMATOLOGY METHOD 09/06/2025 8:26 AM EST [facility] pO2, Venous 42(H) 25 - 40 mmHg LAB HEMATOLOGY METHOD 09/06/2025 8:26 AM EST [facility] SO2, Measured, Venous 77 65 - 80 % LAB HEMATOLOGY METHOD 09/06/2025 8:26 AM EST [facility] Base Excess, Venous 4.9(H) -2.0 - 3.0 mmol/L LAB HEMATOLOGY METHOD 09/06/2025 8:26 AM EST [facility] Bicarbonate, Calculated, Venous 32(H) 22 - 26 mmol/L LAB HEMATOLOGY METHOD 09/06/2025 8:26 AM EST [facility] Hematocrit, Whole Blood 51.3(H) 34.0 - 45.0 % LAB HEMATOLOGY METHOD 09/06/2025 8:26 AM EST [facility] Sodium, Whole Blood 144 136 - 145 mmol/L LAB HEMATOLOGY METHOD 09/06/2025 8:26 AM EST [facility] Potassium, Whole Blood 4.0 3.6 - 4.9 mmol/L LAB HEMATOLOGY METHOD 09/06/2025 8:26 AM EST [facility] Chloride, Whole Blood 101 97 - 107 mmol/L LAB HEMATOLOGY METHOD 09/06/2025 8:26 AM EST [facility] Glucose, Whole Blood 135(H) 74 - 99 mg/dL LAB HEMATOLOGY METHOD 09/06/2025 8:26 AM EST [facility] Lactate, Venous, Whole Blood 1.1 0.5 - 2.2 mmol/L LAB HEMATOLOGY METHOD 09/06/2025 8:26 AM EST [facility] Ionized Calcium, Whole Blood 4.6 4.6 - 5.1 mg/dL LAB HEMATOLOGY METHOD 09/06/2025 8:26 AM EST [facility] Blood Venous blood specimen / Unknown Venipuncture / Unknown 09/06/2025 8:20 AM EST 09/06/2025 8:25 AM EST us Amadou Vann APRN, DNP LAB BLOOD ORDERAB LES Final Result [facility] [address] [place] [address] * Troponin T, High Sensitivity, 2 Hour, Plasma (09/06/2025 3:15 AM EST) Troponin T, High Sensitivity, 2 Hour 10 <14 ng/L 09/06/2025 3:50 AM EST [facility] Troponin Delta 4 <10 ng/L 09/06/2025 3:50 AM EST [facility] Troponin Delta Interpretation Not Significant 09/06/2025 3:50 AM EST [facility] Comment:Not Significant. No acute change in troponin observed between the baseline and 2 hour samples. Blood Venous blood specimen / Unknown Venipuncture / Unknown 09/06/2025 3:15 AM EST 09/06/2025 3:23 AM EST us Freya Liu APRN LAB BLOOD ORDERABLES Final Result [facility] [address] [place] [address] * CT Angio Pulmonary Embolism (09/06/2025 1:49 [...] MD on 09/06/2025 2:05 AM Freya Liu SSIS ETL DEVELOPER IMG CT PROCEDURES Final Res ult * (ABNORMAL) Troponin now and 120 min (09/06/2025 1:00 AM EST) Troponin T, High Sensitivity, 0 Hour 14(H) <14 ng/L 09/06/2025 1:27 AM EST [facility] Blood Venous blood specimen / Unknown Venipuncture / Unknown 09/06/2025 1:00 AM EST 09/06/2025 1:06 AM EST Freya Liu APRN LAB BLOOD ORDERABLES Final Result [facility] [address] [place] [address] * N-Terminal Probnp (09/06/2025 1:00 AM EST) Only the most recent of2 resultswithin the time period is included. N-Terminal, PROBNP, Plasma 339 0 - 449 pg/mL 09/06/2025 11:54 AM EST [facility] Blood Venous blood specimen / Unknown Venipuncture / Unknown 09/06/2025 1:00 AM EST 09/06/2025 1:06 AM EST Armando Dickinson MD LAB BLOOD ORDERABLES Final Res ult Performing Organization Address City/[facility]/ZIP Co de Phone Number [facility] [address] [place] [address] * (ABNORMAL) GGT (09/06/2025 1:00 AM EST) [facility] GGT, Plasma 129(H) 5 - 36 U/L 09/06/2025 8:47 AM EST [facility] Blood Venous blood specimen / Unknown Venipuncture / Unknown 09/06/2025 1:00 AM EST 09/06/2025 1:06 AM EST us Amadou Vann APRN, DNP LAB BLOOD ORDERAB LES Final Result Performing Organization Address City/[facility]/ZIP Co de Phone Number [facility] [address] [place] [address] * SARS-CoV-2, Flu A, Flu B, and RSV - Rapid (09/05/2025 10:54 PM EST) [facility] SARS CoV-2/COVID-19 RNA PCR Result Not Detected Not Detected 09/06/2025 12:21 AM EST [facility] Influenza A Virus PCR Result Not Detected Not Detected 09/06/2025 12:21 AM EST [facility] Influenza B Virus PCR Result Not Detected Not Detected 09/06/2025 12:21 AM EST [facility] Respiratory Syncytial Virus (RSV) PCR Result Not Detected Not Detected 09/06/2025 12:21 AM EST [facility] Swab Nasopharyngeal structure / Unknown Non-blood Collection / Unknown 09/05/2025 10:54 PM EST 09/05/2025 11:31 PM EST Narrative [facility] - 09/06/2025 12:21 AM EST This [...] ORDER BELLO Final Result Performing Organization Address [facility] Co de Phone Number [facility] [address] [place] [address] * Urine Parikh Panel (09/05/2025 10:54 PM EST) Extra Specimen evaluation in progress 09/06/2025 1:02 AM EST [facility] Urine Urine specimen obtained by clean catch procedure / Unknown Non-blood Collection / Unknown 09/05/2025 10:54 PM EST 09/05/2025 11:01 PM EST Freya Liu APRN LAB URINE ORDERABLES Final Result Performing Organization Address [facility] de Phone Number [facility] [address] [place] [address] * Urinalysis Microscopic Examination (09/05/2025 10:54 PM EST) Urine Urine specimen obtained by clean catch procedure / Unknown Non-blood Collection / Unknown 09/05/2025 10:54 PM EST 09/05/2025 11:01 PM EST Freya Liu APRN LAB URINE ORDERABLES Final Result Performing Organization Address [facility] de Phone Number [facility] [address] [place] [address] * (ABNORMAL) Urinalysis with reflex microscopic (Culture NOT Included) (09/05/2025 10:54 PM EST) Color, Urine Yellow LAB URINALYSIS - AUTOMATED METHOD 09/05/2025 11:25 PM EST [facility] Clarity, Urine Clear LAB URINALYSIS - AUTOMATED METHOD 09/05/2025 11:25 PM EST [facility] Spec Pegram, Urine 1.019 1.005 - 1.030 LAB URINALYSIS - AUTOMATED METHOD 09/05/2025 11:25 PM [facility] pH, Urine 6.0 5.0 - 8.0 LAB URINALYSIS - AUTOMATED METHOD 09/05/2025 11:25 PM [facility] Protein, Urine Negative Negative mg/dL LAB URINALYSIS - AUTOMATED METHOD 09/05/2025 11:25 PM [facility] Glucose, Urine Negative Negative mg/dL LAB URINALYSIS - AUTOMATED METHOD 09/05/2025 11:25 PM [facility] Ketones, Urine Negative Negative mg/dL LAB URINALYSIS - AUTOMATED METHOD 09/05/2025 11:25 PM [facility] Blood, Urine Negative Negative LAB URINALYSIS - AUTOMATED METHOD 09/05/2025 11:25 PM [facility] Bilirubin, Urine Negative Negative LAB URINALYSIS - AUTOMATED METHOD 09/05/2025 11:25 PM [facility] Urobilinogen, Urine 0.2 0.2 to 1.0 mg/dL LAB URINALYSIS - AUTOMATED METHOD 09/05/2025 11:25 PM [facility] Leukocytes, Urine Small(A) Negative LAB URINALYSIS - AUTOMATED METHOD 09/05/2025 11:25 PM [facility] Nitrite, Urine Negative Negative LAB URINALYSIS - AUTOMATED METHOD 09/05/2025 11:25 PM [facility] RBC, Urine 1 0 to 3 /HPF LAB URINALYSIS - AUTOMATED METHOD 09/05/2025 11:25 PM [facility] WBC, Urine 0 - 5 0 to 5 /HPF LAB URINALYSIS - AUTOMATED METHOD 09/05/2025 11:25 PM [facility] Squamous Epithelial Cells 3 - 5 0 to 5 /HPF LAB URINALYSIS - AUTOMATED METHOD 09/05/2025 11:25 PM [facility] Hyaline Casts 0 - 2 0 to 5 /LPF LAB URINALYSIS - AUTOMATED METHOD 09/05/2025 11:25 PM [facility] Bacteria, Urine Negative Negative LAB URINALYSIS - AUTOMATED METHOD 09/05/2025 11:25 PM [facility] Urine Urine specimen obtained by clean catch procedure / Unknown Non-blood Collection / Unknown 09/05/2025 10:54 PM EST 09/05/2025 11:01 PM EST us Freya Liu SSIS ETL DEVELOPER LAB URINE ORDERABLES Final Result [facility] [address] [place] [address] * XR Chest 1 View (09/05/2025 10:40 [...] HIV 1/2 Differentiation (09/05/2025 10:26 PM EST) [facility] HIV 1 & 2 Antibody/Antigen Screen Non Reactive Non Reactive 09/06/2025 3:24 AM EST [facility] Comment:Screening for HIV 1 & 2 antibodies, and P24 antigen is NONREACTIVE. No confirmatory testing is required. Blood Venous blood specimen / Unknown Venipuncture / Unknown 09/05/2025 10:26 PM EST 09/05/2025 10:32 PM EST us Mykel Stephen MD LAB BLOOD ORDERABLES Final Resul t Performing Organization Address City/[facility] Co de Phone Number [facility] [address] [place] [address] * Hepatitis C Antibody - ED (09/05/2025 10:26 PM EST) [facility] Hepatitis C Antibody Negative Negative 09/06/2025 3:31 AM EST [facility] Blood Venous blood specimen / Unknown Venipuncture / Unknown 09/05/2025 10:26 PM EST 09/05/2025 10:32 PM EST us Mykel Stephen MD LAB BLOOD ORDERABLES Final Resul t Performing Organization Address City/[facility] Co de Phone Number [facility] [address] [place] [address] * hCG qualitative (09/05/2025 10:26 PM EST) Test Negative Negative 09/06/2025 12:52 AM EST [facility] Blood Venous blood specimen / Unknown Venipuncture / Unknown 09/05/2025 10:26 PM EST 09/05/2025 10:27 PM EST Narrative [facility] - 09/06/2025 12:52 AM EST Reference Range: Males and non- females: Negative. us Freya Liu APRN LAB BLOOD ORDERABLES Final Result Performing Organization Address [facility]/ZIP Co de Phone Number [facility] [address] [place] [address] * Thyroid Stimulating Hormone, Plasma (09/05/2025 10:26 PM EST) Thyroid Stimulating Hormone, Plasma 2.40 0.40 - 4.20 uIU/mL 09/05/2025 10:55 PM EST [facility] Blood Venous blood specimen / Unknown Venipuncture / Unknown 09/05/2025 10:26 PM EST 09/05/2025 10:27 PM EST Narrative [facility] - 09/05/2025 10:55 PM EST Trimester Specific Ranges TSH ( IU/mL) 1st Trimester 0.1 - 3.0 2nd Trimester 0.19 - 4.06 3rd Trimester 0.3 - 3.7 us Mykel Stephen MD LAB BLOOD ORDERABLES Final Resul t Performing Organization Address City/[facility] Co de Phone Number [facility] [address] [place] [address] * Free T4, Plasma (09/05/2025 10:26 PM EST) Free T4, Plasma 1.7 0.8 - 1.7 ng/dL 09/05/2025 10:55 PM EST [facility] Blood Venous blood specimen / Unknown Venipuncture / Unknown 09/05/2025 10:26 PM EST 09/05/2025 10:27 PM EST Narrative [facility] - 09/05/2025 10:55 PM EST Free T4 Trimester Specific Ranges 1st Trimester 0.9 - 1.50 ng/dL 2nd Trimester 0.7 - 1.40 ng/dL 3rd Trimester 0.7 - 1.24 ng/dL us Mykel Stephen MD LAB BLOOD ORDERABLES Final Resul t Performing Organization Address City/[facility]/ZIP Co de Phone Number [facility] [address] [place] [address] * Magnesium (09/05/2025 10:26 PM EST) Magnesium, Plasma 2.0 1.9 - 2.4 mg/dL 09/05/2025 10:55 PM EST [facility] Blood Venous blood specimen / Unknown Venipuncture / Unknown 09/05/2025 10:26 PM EST 09/05/2025 10:27 PM EST us Mykel Stephen MD LAB BLOOD ORDERABLES Final Resul t Performing Organization Address City/[facility]/ZIP Co de Phone Number [facility] [address] [place] [address] * (ABNORMAL) CMP (09/05/2025 10:26 PM EST) Glucose, Plasma 104(H) 74 - 99 mg/dL 09/05/2025 10:55 PM EST [facility] BUN, Plasma 16 7 - 21 mg/dL 09/05/2025 10:55 PM EST [facility] Creatinine, Plasma 0.72 0.60 - 1.10 mg/dL 09/05/2025 10:55 PM EST [facility] BUN/Creatinine Ratio 22 09/05/2025 10:55 PM EST [facility] Sodium, Plasma 143 136 - 145 mmol/L 09/05/2025 10:55 PM EST [facility] Potassium, Plasma 4.3 3.6 - 4.9 mmol/L 09/05/2025 10:55 PM EST [facility] Chloride, Plasma 106 97 - 107 mmol/L 09/05/2025 10:55 PM EST [facility] CO2, Plasma 29 22 - 29 mmol/L 09/05/2025 10:55 PM EST [facility] Anion Gap 8 6 - 16 mmol/L 09/05/2025 10:55 PM EST [facility] Total Calcium, Plasma 9.1 8.9 - 10.2 mg/dL 09/05/2025 10:55 PM EST [facility] Total Protein 7.7 6.3 - 7.9 g/dL 09/05/2025 10:55 PM EST [facility] Albumin, Plasma 3.7 3.5 - 5.2 g/dL 09/05/2025 10:55 PM EST [facility] AST, Plasma 30 10 - 35 U/L 09/05/2025 10:55 PM EST [facility] ALT, Plasma 28 10 - 35 U/L 09/05/2025 10:55 PM EST [facility] Alkaline Phosphatase, Plasma 117(H) 35 - 104 U/L 09/05/2025 10:55 PM EST [facility] Total Bilirubin, Plasma 0.4 0.2 - 1.1 mg/dL 09/05/2025 10:55 PM EST [facility] eGFRcr 107.2 mL/min/1.7 3m*2 09/05/2025 10:55 PM EST [facility] Comment:Reported eGFRcr in m L/min/1.73m2 is based the CKD-EPI 2020 equation that does not use a race coefficient. Blood Venous blood specimen / Unknown Venipuncture / Unknown 09/05/2025 10:26 PM EST 09/05/2025 10:27 PM EST us Mykel Stephen MD LAB BLOOD ORDERABLES Final Resul t [facility] [address] [place] [address] * CARDIAC DEVICE CHECK - REMOTE - [...] Result from Last 3 Months Insurance MEDICARE [facility] Advance Directives * Full Code (Latest Code [...] Patient has decision-making capacity? Yes Care Teams Ribbon Blockmaker Relationship Specialty Start Date End Date Espinoza Thakur MD [address] [place] [address] #1 #1 [place] [address] PCP - General 02/11/21 Vanda Greenberg LPN None None TCM Nurse 09/09/25
--- OUTSIDE RECORDS SUMMARY | 2025-09-28 14:30 | XMS_ITS | Encounter Summary ---
Author Organization Healthcare Address [address] [place] [address] Care Team Providers Care Project Developer Name Role Phone Espinoza Thakur MD Primary Care Provider [phone] Encounter Details Date Type Department Care Team [...] any time in the past 12 m [facility], were you homeless or living in a alf (including now)? No 09/07/2025 [facility] Utilities Answer Date Recorded In the past [...] 1:40 PM EST Office Visit [facility] Sleep Disorder Center [address], [address]th [place] [address] Lavern Galdamez, ANNY [address] [place] [address] 02/08/2026 12:30 PM EDT Office Visit [facility] Medicine Specialties [address], [address]nd [place] [address] Emi Orozco PA [address] [place] [address] 02/10/2026 12:20 PM EDT Office Visit [facility] Women's [facility] [address], 3rd [place] [address] Hannah Tang MD [address] [place] [address] 03/11/2026 2:40 PM EDT Office Visit [facility] [address] [place] [address] Tanja Parsons MD [address] [place] [address] 2026 1:00 PM EDT Appointment Cardiac Imaging [address] [place] [address] 2026 2:40 PM EDT Office Visit [facility] [address] [place] [address] Jordon Tidwell MD [address] [place] [address] documented as of this encounter [...] documented as of this encounter Care Teams Project Developer Relationship Specialty Start Date End Date Espinoza Thakur MD [address] [place] [address] St [address]1 [place] Smith [address] PCP - General 02/11/21 documented as of this encounter
--- OUTSIDE RECORDS SUMMARY | 2025-09-28 14:30 | XMS_ITS | Encounter Summary ---
Author Organization Healthcare Address [address] [place] [address] Care Team Providers Care Disability Services Coordinator Name Role Phone Espinoza Thakur MD Primary Care Provider [phone] Encounter Details Date Type Department Care Team [...] someone who was sick? No / Unsure 08/21/2025 10:59 AM Vijay Orozco Do you have any of the following new or worsening symptoms? None of these 08/21/2025 10:59 AM Jared Fonseca is K * Travel Screening Question Answer Date of Assessment Author Have you traveled internatio kiara or domestically in the last month? No 08/21/2025 10:59 AM Jared Fonseca K documented as of this encounter Mental Status * Communicable Disease Screening Question Answer Entry Date Author Have you been in contact with someone who was sick? No / Unsure 08/21/2025 10:59 AM Vijay Orozco Do you have any of the following new or worsening symptoms? None of these 08/21/2025 10:59 AM EST FabianovonJared clarence K * Travel Screening Question Answer Entry Date Author Have you traveled internatio kiara or domestically in the last month? No 08/21/2025 10:59 AM EST Giuliana gantatianaVijay documented in this encounter Plan of Treatment Upcoming Encounters Date Type Department Care Team (Late st Contact Info) Description 10/22/2025 1:40 PM EST Office Visit [facility] Sleep Disorder Center [address]th [place] [address] Lavern Galdamez, BUTTON MACHINE OPERATOR [address] [place] [address] 02/08/2026 12:30 PM EDT Office Visit [facility] Medicine Specialties [address], 2nd [place] [address] Emi Orozco PA [address] [place] [address] 02/10/2026 12:20 PM EDT Office Visit [facility] Women's Health [address], 3rd [place] [address] Hannah Tang MD [address] [place] [address] 03/11/2026 2:40 PM EDT Office Visit [facility] [place] [address] [place] [address] Tanja Parsons MD [address] [place] [address] 2026 1:00 PM EDT Appointment Cardiac Imaging [address] [place] [address] 2026 2:40 PM EDT Office Visit [facility] [place] [facility] [address] [place] [address] Jordon Tidwell MD [address] [place] [address] documented as of this encounter [...] documented as of this encounter Care Teams Disability Services Coordinator Relationship Specialty Start Date End Date Espinoza Thakur MD [address] [place] [address] [address]1 [address]1 [place] [address] PCP - General 02/11/21 documented as of this encounter
--- OUTSIDE RECORDS SUMMARY | 2025-09-28 14:30 | XMS_ITS | Encounter Summary ---
Author Organization Healthcare Address [address] [place] [id number] Care Team Providers Care Beach Lifeguard Name Role Phone Espinoza Thakur MD Primary Care Provider [phone] Vanda Greenberg LPN Unavailable Unavailable Encounter Details [...] a senior living (including now)? No 09/09/2025 [facility] Utilities Answer Date Recorded In the [...] Assessment Author Have you been in contact wit someone who was sick? No / Unsure 09/10/2025 12:53 PM Saleem Thakkar Do you have any of the follo wing new or worsening symptoms? None of these 09/10/2025 12:53 PM Charlie Thakkar * Travel Screening Question Answer Date of Assessment Author Have you traveled internatio kiara or domestically in the last month? No 09/10/2025 12:53 PM Saleem Wallace documented as of this encounter Mental Status * Communicable Disease Screening Question Answer Entry Date Author Have you been in contact [facility] someone who was sick? No / Unsure 09/10/2025 12:53 PM Saleem Thakkar Do you have any of the follo wing new or worsening symptoms? None of these 09/10/2025 12:53 PM Charlie Thakkar * Travel Screening Question Answer Entry Date Author Have you traveled internatio kiara or domestically in the last month? No 09/10/2025 12:53 PM Saleem Wallace documented in this encounter Plan of Treatment Upcoming Encounters Date Type Department Care Team (Late st Contact Info) Description 10/22/2025 1:40 PM EST Office Visit [facility] Sleep Disorder Center [address] 4th [place] [address] Lavern Galdamez APRN [address] [place] [address] 02/08/2026 12:30 PM EDT Office Visit [facility] Medicine Specialties [address], 2nd [place] [address] Emi Orozco PA [address] [place] [address] 02/10/2026 12:20 PM EDT Office Visit [facility] Women's Health [address], 3rd [place] [address] Hannah Tang MD [address] [place] [address] 03/11/2026 2:40 PM EDT Office Visit [facility] [place] [address] [place] [address] Tanja Parsons MD [address] [place] [address] 2026 1:00 PM EDT Appointment Cardiac Imaging [address] [place] [address] 2026 2:40 PM EDT Office Visit [facility] [place] [address] [place] [address] Jordon Tidwell MD [address] [place] [address] documented as of this encounter Visit Diagnoses [...] documented as of this encounter Care Teams Beach Lifeguard Relationship Specialty Start Date End Date Espinoza Thakur MD [address] [place] [address] #1 #1 [place] [address] PCP - General 02/11/21 Vanda Greenberg LPN None None TCM Nurse 09/09/25 documented as of this encounter
--- OUTSIDE RECORDS SUMMARY | 2025-09-28 14:31 | XMS_ITS | Encounter Summary ---
Author Organization Healthcare Address [address] [place] [id number] Care Team Providers Care Grounds Keeper Name Role Phone Espinoza Thakur MD Primary Care Provider Vanda Greenberg LPN Unavailable Unavailable Encounter Details Date Type Department Care Team (Latest Contact Info) Description 09/19/2025 Travel Social History Tobacco Use Types Packs/Day [...] were you homeless or living in a jail (including now)? No 09/09/2025 [facility] Utilities Answer Date Recorded In the [...] Description 10/22/2025 1:40 PM EST Office Visit [facility] [address]th [place] [address] Lavern Galdamez, ANNY [address] [place] [address] 02/08/2026 12:30 PM EDT Office Visit [facility] [address] 2nd [place] [address] Emi Orozco PA [address] [place] [address] 02/10/2026 12:20 PM EDT Office Visit [facility] Women's Health [address], 3rd [place] [address] Hannah Tang MD [address] [place] [address] 03/11/2026 2:40 PM EDT Office Visit [facility] [address] [facility] [place] [address] Tanja Parsons MD [address] [place] [address] 2026 1:00 PM EDT Appointment Cardiac Imaging [address] [place] [address] 2026 2:40 PM EDT Office Visit [facility] [address] [facility] [place] [address] Jordon Tidwell MD [address] [place] [address] documented as of this encounter [...] documented as of this encounter Care Teams Grounds Keeper Relationship Specialty Start Date End Date Espinoza Thakur MD [address] [place] [address] #1 #1 [place] [address] PCP - General 02/11/21 Vanda Greenberg LPN None None TCM Nurse 09/09/25 documented as of this encounter
--- OUTSIDE RECORDS SUMMARY | 2025-09-28 14:31 | XMS_ITS | Encounter Summary ---
Author Organization Healthcare Address [address] [place] [address] Care Team Providers Care Laboratory Mechanical Technician Name Role Phone Espinoza Thakur MD Primary Care Provider [phone] Encounter Details Date Type Department Care Team (Late st Contact Info) Description 09/07/2025 Telephone [facility] [place] [address] [facility] [place] [address] Jordon Tidwell MD [address] [place] [address] Social History Tobacco Use Types [...] any time in the past 12 m [facility], were you homeless or living in a skilled nursing (including now)? No 09/07/2025 [facility] Utilities Answer Date Recorded In the [...] EST I returned the call and let Suasn know that I have informed Dr. Tidwell [...] fluid on her lungs. Best contact number: [phone] SisterSusan Optimal time of day to reach [...] Description 10/22/2025 1:40 PM EST Office Visit [facility] Sleep Disorder Center [address], 4th [place] [address] Lavern Galdamez, ANNY [address] [place] [address] 02/08/2026 12:30 PM EDT Office Visit [facility] Medicine Specialties [address] 2nd [place] [address] Emi Orozco PA [address] [place] [address] 02/10/2026 12:20 PM EDT Office Visit [facility] Women's Health [address], 3[address] [place] [address] Hannah Tang MD [address] [place] [address] 03/11/2026 2:40 PM EDT Office Visit [facility] [place] [address] [place] [address] Tanja Parsons MD [address] [place] [address] 2026 1:00 PM EDT Appointment Cardiac Imaging [address] [place] [address] 2026 2:40 PM EDT Office Visit [facility] [place] [address] [facility] [place] [address] Jordon Tidwell MD [address] [place] [address] documented as of this encounter [...] documented as of this encounter Care Teams Laboratory Mechanical Technician Relationship Specialty Start Date End Date Espinoza Thakur MD [address] [place] [address] #1 #1 [place] Smith [id number] PCP - General 02/11/21 documented as of this encounter
--- OUTSIDE RECORDS SUMMARY | 2025-09-28 14:31 | XMS_ITS | Encounter Summary ---
Author Organization Healthcare Address [address] [id number] Care Team Providers Care Paint Roller Cover Machine Setter Name Role Phone Espinoza Thakur MD Primary Care Provider [phone] Vanda Greenberg LPN Unavailable Unavailable Encounter Details Date Type Department Care Team (Latest Contact Info) Description 09/28/2025 Travel Social History Tobacco Use Types Packs/Day [...] any time in the past 12 m [facility], were you homeless or living in a care home (including now)? No 09/09/2025 [facility] Utilities Answer Date Recorded In the past [...] someone who was sick? No / Unsure 09/28/2025 11:09 AM Carolyne Dale Do you have any of the following new or worsening symptoms? None of these 09/28/2025 11:09 AM Marjorie Dale * Travel Screening Question Answer Date of Assessment Author Have you traveled internatio kiara or domestically in the last month? No 09/28/2025 11:09 AM Carolyne Casarez documented as of this encounter Mental Status * Communicable Disease Screening Question Answer Entry Date Author Have you been in contact with someone who was sick? No / Unsure 09/28/2025 11:09 AM EST Carolyne Rogers Do you have any of the following new or worsening symptoms? None of these 09/28/2025 11:09 AM EST Marjorie Rogers * Travel Screening Question Answer Entry Date Author Have you traveled internatio kiara or domestically in the last month? No 09/28/2025 11:09 AM EST Carolyne Braswell documented in this encounter Plan of Treatment Upcoming Encounters Date Type Department Care Team (Late st Contact Info) Description 10/22/2025 1:40 PM EST Office Visit [facility] Sleep Disorder Center [address] 4th [place] [address] Lavern Galdamez APRN [address] [place] [address] 02/08/2026 12:30 PM EDT Office Visit [facility] Medicine Specialties [address] 2[address] [place] [address] Emi Orozco PA [address] [place] [address] 02/10/2026 12:20 PM EDT Office Visit [facility] Women's Health [address] 3[address] [place] [address] Hannah Tang MD [address] [place] [address] 03/11/2026 2:40 PM EDT Office Visit [facility] [place] [address] [place] [address] Tanja Parsons MD [address] [place] [address] 2026 1:00 PM EDT Appointment Cardiac Imaging [address] [place] [address] 2026 2:40 PM EDT Office Visit [facility] [place] [address] [place] [address] Jordon Tidwell MD [address] [place] [address] documented as of this encounter [...] documented as of this encounter Care Teams Paint Roller Cover Machine Setter Relationship Specialty Start Date End Date Espinoza Thakur MD [address] [place] [address] #1 #1 [place] [address] PCP - General 02/11/21 Vanda Greenberg LPN None None TCM Nurse 09/09/25 documented as of this encounter
--- OUTSIDE RECORDS SUMMARY | 2025-09-28 14:32 | XMS_ITS | Encounter Summary ---
Author Organization Healthcare Address [address] [place] [id number] Care Team Providers Care Financial Aid Director Name Role Phone Espinoza Thakur MD Primary Care Provider [phone] Vanda Greenberg LPN Unavailable Unavailable Encounter Details Date Type Department Care Team (Latest Contact Info) Description 09/18/2025 Travel Social History Tobacco Use Types Packs/Day [...] any time in the past 12 m [facility], were you homeless or living in a snf (including now)? No 09/09/2025 [facility] Utilities Answer Date Recorded In [...] Author Have you been in contact wit h someone who was sick? No / Unsure 09/18/2025 12:31 PM Jenise Morris Do you have any of the following new or worsening symptoms? None of these 09/18/2025 12:31 PM Jenise Morris * Travel Screening Question Answer Date of Assessment Author Have you traveled internatio kiara or domestically in the last month? No 09/18/2025 12:31 PM Jenise Burleson documented as of this encounter Mental Status * Communicable Disease Screening Question Answer Entry Date Author Have you been in contact wit h someone who was sick? No / Unsure 09/18/2025 12:31 PM EST Jenise Rea Do you have any of the following new or worsening symptoms? None of these 09/18/2025 12:31 PM EST Jenise Rea * Travel Screening Question Answer Entry Date Author Have you traveled internatio kiara or domestically in the last month? No 09/18/2025 12:31 PM EST Jenise Herrera documented in this encounter Plan of Treatment Upcoming Encounters Date Type Department Care Team (Late st Contact Info) Description 10/22/2025 1:40 PM EST Office Visit [facility] Sleep Disorder Center [address], 4th [place] [address] Lavern Galdamez APRN [address] [place] [address] 02/08/2026 12:30 PM EDT Office Visit [facility] Medicine Specialties [address] [place] [address] Emi Orozco PA [address] [place] [address] 02/10/2026 12:20 PM EDT Office Visit [facility] Women's Health [address] 3[address] [place] [address] Hannah Tang MD [address] [place] [address] 03/11/2026 2:40 PM EDT Office Visit [facility] [place] [address] [place] [address] Tanja Parsons MD [address] [place] [address] 2026 1:00 PM EDT Appointment Cardiac Imaging [address] [place] [address] 2026 2:40 PM EDT Office Visit [facility] [place] [address] [place] [address] Jordon Tidwell MD [address] [place] [address] documented as of this encounter Visit Diagnoses [...] documented as of this encounter Care Teams Financial Aid Director Relationship Specialty Start Date End Date Espinoza Thakur MD [address] [place] [address] #1 #1 [place] [address] PCP - General 02/11/21 Vanda Greenberg LPN None None TCM Nurse 09/09/25 documented as of this encounter
--- OUTSIDE RECORDS SUMMARY | 2025-09-28 14:32 | XMS_ITS | Encounter Summary ---
Author Organization Healthcare Address [address] [place] [address] Care Team Providers Care Senior Core Java Developer Name Role Phone Espinoza Thakur MD Primary Care Provider [phone] Vanda Greenberg LPN Unavailable Unavailable Encounter Details Date Type Department Care Team (Late st Contact Info) Description 09/18/2025 Telephone [facility] [place] [address] [facility] [facility] [place] [address] Jordon Tidwell MD [address] [place] [address] Social History Tobacco Use Types [...] in a group home (including now)? No 09/09/2025 [facility] Utilities Answer Date Recorded In the past 12 months has th e [employer], gas, oil, or water company threatened to [...] encounter Miscellaneous Notes * Telephone Encounter - Tanja Odonnell Katt - 09/18/2025 2:49 PM EST Status Update Call #1 1st call regarding the status of the initial request. Patient sister myra calling patient saw today and said he had her sent to be seen before weight loss for shots, but they tried to get her in today with the weight loss clinic and they did not have her as a patient she would like a call back to see if she can be referred again Best contact number: Other: [phone] Optimal time of day to reach caller: ANYTIME Additional comments/information from caller: None Note: Please do not reply to this message. Follow-up communication and further actions as a result of this message need to be communicated with the patient directly, if the patient is not active onMyChart. If the patient is active on MyChart, they will receive notification of the communication/outcome via [employer]. documented in this encounter Plan of Treatment Upcoming Encounters Date Type Department Care Team (Late st Contact Info) Description 10/22/2025 1:40 PM EST Office Visit [facility] Sleep Disorder Center [address] [place] [phone] Lavern Galdamez, ANNY [address] [place] [phone] 02/08/2026 12:30 PM EDT Office Visit [facility] Medicine Specialties [address] [place] [address] Emi Orozco PA [address] [place] [address] 02/10/2026 12:20 PM EDT Office Visit [facility] Women's Health [address] [place] [address] Hannah Tang MD [address] [place] [address] 03/11/2026 2:40 PM EDT Office Visit [facility] [place] [address] [place] [address] Tanja Parsons MD [address] [place] [address] 2026 1:00 PM EDT Appointment Cardiac Imaging [address] [place] [address] 2026 2:40 PM EDT Office Visit [facility] [place] [address] [address] [place] [address] Jordon Tidwell MD [address] [place] [address] documented as of this encounter [...] documented as of this encounter Care Teams Senior Core Java Developer Relationship Specialty Start Date End Date Espinoza Thakur MD [address] [place] [address] [address] [place] [address] PCP - General 02/11/21 Vanda Greenberg LPN None None TCM Nurse 09/09/25 documented as of this encounter
--- OUTSIDE RECORDS SUMMARY | 2025-09-28 14:32 | XMS_ITS ---
Author Organization [facility] Address [address] [id number] Care Team Providers Care Parent Trainer Name Role Phone Espinoza Thakur MD Primary Care Provider [phone] Vanda Greenberg LPN Unavailable Unavailable Transitional Care Management Status:Active (Active) Program category:Transitional Care Management - [facility] Start date:09/09/2025 Enrollment date:09/09/2025 Enrollment reason:Identified using hospital discharge data Overview This episode type is for outpatient care managers enrolling patients in the [facility] Transitional Care Management program. Case Team Name Relationship Phone Vanda Greenberg LPN(Responsible Staff) TCM Nurse Continued Care and Services Coordination
--- OUTSIDE RECORDS SUMMARY | 2025-09-28 14:32 | XMS_ITS | Encounter Summary ---
Author Organization Healthcare Address [address] [id number] Care Team Providers Care Final Cleaner Name Role Phone Espinoza Thakur MD Primary Care Provider [phone] Vanda Greenberg LPN Unavailable Unavailable Encounter Details Date Type Department Care Team (Latest Contact Info) Description 09/25/2025 Travel Social History Tobacco Use Types Packs/Day [...] time in the past 12 m [facility], were you homeless or living in a jail (including now)? No 09/09/2025 [facility] Utilities Answer Date Recorded In the [...] someone who was sick? No / Unsure 09/25/2025 12:34 PM Bethany Jensen Do you have any of the follo wing new or worsening symptoms? None of these 09/25/2025 12:34 PM Emmy Jensen * Travel Screening Question Answer Date of Assessment Author Have you traveled internatio ki[place] or domestically in the last month? No 09/25/2025 12:34 PM Bethany Mendez documented as of this encounter Mental Status * Communicable Disease Screening Question Answer Entry Date Author Have you been in contact wit h someone who was sick? No / Unsure 09/25/2025 12:34 PM EST Bethany Jacobson Do you have any of the follo wing new or worsening symptoms? None of these 09/25/2025 12:34 PM EST Emmy Jacobson * Travel Screening Question Answer Entry Date Author Have you traveled internatio kiara or domestically in the last month? No 09/25/2025 12:34 PM EST Bethany Hua documented in this encounter Plan of Treatment Upcoming Encounters Date Type Department Care Team (Late st Contact Info) Description 10/22/2025 1:40 PM EST Office Visit [facility] Sleep Disorder Center [address] [place] [phone] Lavern Galdamez, ANNY [address] [place] [phone] 02/08/2026 12:30 PM EDT Office Visit [facility] Medicine Specialties [address] [place] [address] Emi Orozco PA [address] [place] [address] 02/10/2026 12:20 PM EDT Office Visit [facility] Women's Health [address] [place] [address] Hannah Tang MD [address] [place] [address] 03/11/2026 2:40 PM EDT Office Visit [facility] [place] [address] [place] [address] Tanja Parsons MD [address] [place] [address] 2026 1:00 PM EDT Appointment Cardiac Imaging [address] [place] [address] 2026 2:40 PM EDT Office Visit [facility] [place] [address] [place] [phone] Jordon Tidwell MD [address] [place] [address] documented as of this encounter Visit Diagnoses [...] documented as of this encounter Care Teams Final Cleaner Relationship Specialty Start Date End Date Espinoza Thakur MD [address] [place] [address] [address] [place] [address] PCP - General 02/11/21 Vanda Greenberg LPN None None TCM Nurse 09/09/25 documented as of this encounter
--- OUTSIDE RECORDS SUMMARY | 2025-09-28 14:32 | XMS_ITS | Encounter Summary ---
Author Organization Healthcare Address [address] [place] [address] Care Team Providers Care Quoter Name Role Phone Espinoza Thakur MD Primary Care Provider [phone] Vanda Greenberg LPN Unavailable Unavailable Reason for Referral * Other Medical (Routine) - Closed Specialty Diagnoses / Procedures Referred By Neema burger Referred To Contact Sleep Medicine Diagnoses KALEIGH (obstructive sleep apnea) Nocturnal hypoxemia Procedures Adult Sleep Study Overnight Polysomnography With CPAP Titration Lavern Galdamez APRN [address] [place] [address] Phone: tel: fax: Referral ID Status Reason Start Date Expiration Date V isits Requested Visits Authorized [id number] Closed Specialty Services Required 09/15/2025 03/17/2027 1 1 Encounter Details Date Type Department Care Team (Late st Contact Info) Description 09/15/2025 Telephone [facility] [address] [place] [address] Lavern Galdamez APRN [address] [place] [address] Social History Tobacco Use Types Packs/Day Years [...] any time in the past 12 m [facility], were you homeless or living in a intermediate (including now)? No 09/09/2025 [facility] Utilities [...] encounter Miscellaneous Notes * Telephone Encounter - Lavern Galdamez APRN - 09/15/2025 2:17 PM EST Called regarding overnight oxygen study, patient with lower oxygen during the study. Spoke with how recommended repeat titration as patient was not previously well controlled during REM sleep. Patient also with elevated AHI on DD during visit. Will place order for repeat titration. Familyagreeable. Will reach out to patient with results and make further adjustments to treatment plan atthat time. documented in this encounter Plan of Treatment Upcoming Encounters Date Type Department Care Team (Late st Contact Info) Description 10/22/2025 1:40 PM EST Office Visit [facility] Sleep Disorder Center [address] [place] [address] Lavern Galdamez APRN [address] [place] [address] 02/08/2026 12:30 PM EDT Office Visit [facility] Medicine Specialties [address] [place] [address] Emi Orozco PA [address] [place] [address] 02/10/2026 12:20 PM EDT Office Visit [facility] Women's Health [address] [place] [address] Hannah Tang MD [address] [place] [address] 03/11/2026 2:40 PM EDT Office Visit [facility] [address] [place] [address] Tanja Parsons MD [address] [place] [address] 2026 1:00 PM EDT Appointment Cardiac Imaging [address] [place] [address] 2026 2:40 PM EDT Office Visit [facility] [address] [place] [address] Jordon Tidwell MD [address] [place] [address] Scheduled Orders Name Type Priority Associated Diagnoses Order Schedule Adult Sleep Study Overnight Polysomnography With CPAP Titration Sleep Center Routine KALEIGH (obstructive sleep apnea) Nocturnal hypoxemia 1 Occurrences starting 09/15/2025 until 03/19/2027 documented as of this encounter Visit Diagnoses Diagnosis KALEIGH (obstructive sleep apnea)- Primary Obstructive sleep apnea (adult) (pediatric) Nocturnal hypoxemia [...] documented as of this encounter Care Teams Quoter Relationship Specialty Start Date End Date Espinoza Thakur MD [address] [place] [address] #1 [address]1 [place] [address] PCP - General 02/11/21 Vanda Greenberg LPN None None TCM Nurse 09/09/25 documented as of this encounter
== END 2025-09-28 23:59 | disposition home or self-care (01) ==
LOC: LAB 14:21
PROVIDERS: PCP Family Medicine; Visit Provider Family Medicine
DX: E87.6 Hypokalemia (principal)
CPT/HCPCS: 36415